=== PATIENT | female | born 1955 | race Caucasian/White ===

== ENCOUNTER 2017-05-30 11:43 | Inpatient (IN) | payer MEDICARE, MEDICAID, SELFPAY | END 2017-06-02 10:17 | disposition home or self-care (01) | DRG 694 | PROVIDERS: Admitting Provider Family Medicine; Emergency Provider Emergency Medicine; Visit Provider Emergency Medicine | DX: N13.30 Unspecified hydronephrosis (principal); I10 Essential (primary) hypertension; J44.9 Chronic obstructive pulmonary disease, unspecified; Z72.0 Tobacco use; Z72.89 Other problems related to lifestyle | CPT/HCPCS: 36415; 71020; 74176; 80048; 80053; 81001; 82550; 82553; 84484; 85025; 87086; 87088; 87186; 87275; 87276; 87507; 93005; 94640; 94760; 96365; 96375; 96376; 99285; 99406; G0378; J2405 ==

== ENCOUNTER 2017-07-25 17:20 | Emergency (ER) | payer MEDICARE, MEDICAID, SELFPAY ==
[2017-07-25 17:31] VITALS: BP 160/112; PULSE 84; RESP 18; TEMP 36.8; O2SAT 98; BMI 27.4
--- NOTE | 2017-07-25 18:00 | HMH.EDSKAF ---
ED Disposition Clinical Impression: Swelling, Abscess, Hematoma, Anal cancer Disposition: Home, Self-Care Condition on Discharge: Fair Instructions: DI for Skin Abscess Prescriptions: cephALEXin [cephALEXin 500mg capsule] 500 mg PO Q6H #28 cap - Critical Care Critical Care Time: No Attestation: On 07/25/17, the high probability of a clinically significant, sudden or life threatening deterioration of the following system(s) required my full and direct attention, intervention and personal management. The time I documented below is in addition to time spent performing reported procedures but includes the following listed in this critical care notation. Medical Decision Making - Medical Records Medical records reviewed: Yes: I reviewed the patient's medical records. Vital Signs: 07/25/17 17:31 Temperature 98.3 F Temperature Source Oral Pulse Rate [Right Brachial] 84 Respiratory Rate 18 Blood Pressure [Right Arm] 160/112 Blood Pressure Mean [Right Arm] 128 Blood Pressure Source [Right Arm] Automatic Cuff Blood Pressure Position [Right Arm] Sitting 02 Sat by Pulse Oximetry 98 - Lab Data Lab Results 07/25/17 17:40: WBC 5.8, RBC 4.79, Hgb 15.1, Hct 46.3, MCV 96.7, MCH 31.5 H, MCHC 32.6, RDW 14.0, Plt Count 261, MPV 8.3, Neut % (Auto) 57.7, Lymph % (Auto) 28.9, [place] % (Auto) 7.4, Eos % (Auto) 5.2, Baso % (Auto) 0.7, Neut # (Auto) 3.3, Lymph # (Auto) 1.7, [place] # (Auto) 0.4, Eos # (Auto) 0.3, Baso # (Auto) 0.0 07/25/17 17:40: Sodium 139, Potassium 4.7, Chloride 106, Carbon Dioxide 25, Anion Gap 12.7, BUN 7, Creatinine 0.78, Estimated Creat Clear 89, Estimated GFR 76, Est GFR ( Amer) 91, Glucose 90 Result diagrams: 07/25/17 17:40 07/25/17 17:40 Orders (Tests/Meds): ORDERS Category Date Time Status Complete Blood Count Auto Diff Stat Lab 07/25/17 17:40 Results Erythrocyte Sedimentation Rate Stat Lab 07/25/17 17:40 Results - Joshua Inquiry Pt receiving controlled substance: No Joshua was queried for this patient: No Medical Decision Making Narrative: Labs were within normal limits I called her surgeon at [facility]. Dr Kenn Abraham who advised to call the nuber on the card for follow up tomorrow. the patient was notified and agreed. Skin/Abscess/FB HPI - General Chief complaint: Skin/Abscess/Foreign Body Stated complaint: Knot on Spine Mode of Arrival: Ambulatory Limitations: No Limitations Description of Symptoms (Recalled from ER Triage Doc. by RN): possible infection at incision site from transmitter placed to stimulate bowels - History of Present Illness HPI narrative: 61 years old female status post stimulator extraction 1 months ago. Yesterday, she developed a swelling underneath the incision and was told to come to the ED to be checked. She has no fever no chills no purulent discharge. MD complaint: lesion, other Onset (ago): day(s) (Started yesterday.) Location: buttocks (Left upper buttock) Severity: mild Quality: dull Consistency: constant Relieving factors: none Exacerbating factors: none Associated symptoms: denies other symptoms Treatments prior to arrival: none - Related Data Home Medications Medication Instructions Recorded Confirmed Albuterol Sulfate [Albuterol HFA 1 - 2 puffs IH Q4-6H PRN 07/25/17 07/25/17 Inhaler] Aspirin [Aspirin 81mg EC Tab] 81 mg PO DAILY 07/25/17 07/25/17 Cyclobenzaprine HCl 10 mg PO DAILY 07/25/17 07/25/17 [Cyclobenzaprine 10mg Tab] Fluticasone/Vilanterol [Breo 1 each IH TID 07/25/17 07/25/17 Ellipta 100-25 Mcg INH] Gabapentin [Gabapentin 800mg Tab] 800 mg PO TID 07/25/17 07/25/17 Levothyroxine Sodium 50 mcg PO DAILY 07/25/17 07/25/17 [Levothyroxine 50mcg (0.05mg) Tab] Lovastatin [Altoprev] 20 mg PO DAILY 07/25/17 07/25/17 Multivit with Iron-Minerals 1 each PO DAILY 07/25/17 07/25/17 [Cerovite Jr] Omeprazole [Omeprazole 40mg 40 mg PO DAILY 07/25/17
--- NOTE | 2017-07-25 18:03 | ED_ITS ---
ED Disposition Clinical Impression: Swelling, Abscess, Hematoma, Anal cancer Disposition: Home, Self-Care Condition on Discharge: Fair Instructions: DI for Skin Abscess Prescriptions: cephALEXin [cephALEXin 500mg capsule] 500 mg PO Q6H #28 cap - Critical Care Critical Care Time: No Attestation: On 07/25/17, the high probability of a clinically significant, sudden or life threatening deterioration of the following system(s) required my full and direct attention, intervention and personal management. The time I documented below is in addition to time spent performing reported procedures but includes the following listed in this critical care notation. Medical Decision Making - Medical Records Medical records reviewed: Yes: I reviewed the patient's medical records. Vital Signs: 07/25/17 17:31 Temperature 98.3 F Temperature Source Oral Pulse Rate [Right Brachial] 84 Respiratory Rate 18 Blood Pressure [Right Arm] 160/112 Blood Pressure Mean [Right Arm] 128 Blood Pressure Source [Right Arm] Automatic Cuff Blood Pressure Position [Right Arm] Sitting 02 Sat by Pulse Oximetry 98 - Lab Data Lab Results 07/25/17 17:40: WBC 5.8, RBC 4.79, Hgb 15.1, Hct 46.3, MCV 96.7, MCH 31.5 H, MCHC 32.6, RDW 14.0, Plt Count 261, MPV 8.3, Neut % (Auto) 57.7, Lymph % (Auto) 28.9, Major % (Auto) 7.4, Eos % (Auto) 5.2, Baso % (Auto) 0.7, Neut # (Auto) 3.3 , Lymph # (Auto) 1.7, Major # (Auto) 0.4, Eos # (Auto) 0.3, Baso # (Auto) 0.0 07/25/17 17:40: Sodium 139, Potassium 4.7, Chloride 106, Carbon Dioxide 25, Anion Gap 12.7, BUN 7, Creatinine 0.78, Estimated Creat Clear 89, Estimated GFR 76, Est GFR ( Amer) 91, Glucose 90 Result diagrams: 07/25/17 17:40 07/25/17 17:40 Orders (Tests/Meds): ORDERS Category Date Time Status Complete Blood Count Auto Diff Stat Lab 07/25/17 17:40 Results Erythrocyte Sedimentation Rate Stat Lab 07/25/17 17:40 Results - Joshua Inquiry Pt receiving controlled substance: No Joshua was queried for this patient: No Medical Decision Making Narrative: Labs were within normal limits I called her surgeon at [facility]. Dr Kenn Abraham who advised to call the nuber on the card for follow up tomorrow. the patient was notified and agreed. Skin/Abscess/FB HPI - General Chief complaint: Skin/Abscess/Foreign Body Stated complaint: Knot on Spine Mode of Arrival: Ambulatory Limitations: No Limitations Description of Symptoms (Recalled from ER Triage Doc. by RN): possible infection at incision site from transmitter placed to stimulate bowels - History of Present Illness HPI narrative: 61 years old female status post stimulator extraction 1 months ago. Yesterday, she developed a swelling underneath the incision and was told to come to the ED to be checked. She has no fever no chills no purulent discharge. MD complaint: lesion, other Onset (ago): day(s) (Started yesterday.) Location: buttocks (Left upper buttock) Severity: mild Quality: dull Consistency: constant Relieving factors: none Exacerbating factors: none Associated symptoms: denies other symptoms Treatments prior to arrival: none - Related Data Home Medications Medication Instructions Recorded Confirmed Albuterol Sulfate [Albuterol HFA 1 - 2 puffs IH Q4-6H PRN 07/25/17 07/25/17 Inhaler] Aspirin [A
[2017-07-25 18:13] LABS: Basophils % 0.7 % (0.1-2.0); Eosinophils # 0.3 K/mm3 (0.0-0.4); Eosinophils % 5.2 % (0.1-12.0); Hematocrit 46.3 % (37.0-47.0); Hemoglobin 15.1 g/dL (12.2-16.2); Lymphocytes # 1.7 K/mm3 (0.7-4.5); Lymphocytes % 28.9 K/mm3 (10-50); Mean Corpuscular HGB Conc 32.6 g/dL (31.8-35.4); Mean Corpuscular Hemoglobin 31.5 pg (27.0-31.2); Mean Corpuscular Volume 96.7 fl (81-99); Mean Platelet Volume 8.3 fl (7.4-10.4); Monocytes # 0.4 K/mm3 (0.1-1.0); Monocytes % 7.4 % (1.7-9.3); Neutrophils # 3.3 K/mm3 (1.8-7.8); Neutrophils % 57.7 % (37.0-80.0); Platelet Count 261 K/mm3 (142-424); Red Blood Count 4.79 M/mm3 (4.20-5.40); White Blood Count 5.8 K/mm3 (4.8-10.8)
[2017-07-25 18:16] LABS: Anion Gap 12.7 mEq/L (5-15); Blood Urea Nitrogen 7 mg/dL (7-18); Carbon Dioxide 25 mmol/L (21.0-32.0); Chloride 106 mmol/L (98-107); Creatinine Clearance Estimated 89 mL/min (0-300); Creatinine,Serum 0.78 mg/dL (0.55-1.02); Estimated Glomerular Filt Rate 76 ml/min (>60); GFR (African American) 91 ML/MIN (>60); Glucose 90 mg/dL (74-106); Potassium 4.7 mmoL/L (3.5-5.1); Sodium 139 mmol/L (136-145)
[2017-07-25 19:41] LABS: Erythrocyte Sedimentation Rate 31 mm/hr (0-30)
== END 2017-07-25 19:13 | disposition home or self-care (01) ==
PROVIDERS: Emergency Provider Emergency Medicine; Family Provider Emergency Medicine
DX: R60.9 Edema, unspecified (principal); L02.91 Cutaneous abscess, unspecified; C21.0 Malignant neoplasm of anus, unspecified; Z79.82 Long term (current) use of aspirin; Z88.2 Allergy status to sulfonamides; Z88.6 Allergy status to analgesic agent
CPT/HCPCS: G0463; 80048; 85025; 85651; 99203; 99281

== ENCOUNTER → 2017-11-20 10:27 | Outpatient (REF) | payer MEDICARE, MEDICAID, SELFPAY ==
[2017-11-20 14:24] LABS: Chol/HDL Ratio 5.3 (1-3.5); Cholesterol 242 mg/dL (140-200); HDL Cholesterol 46 mg/dL (29-89); LDL Cholesterol 162 mg/dL (0-130); Triglycerides 168 mg/dL (30-200); VLDL Cholesterol 34 mg/dL (0-40)
[2017-11-21 09:01] LABS: Vitamin D 25 Hydroxy 26.2 ng/mL (30.0-100.0)
== END ==
LOC: LAB 10:27
PROVIDERS: Visit Provider Emergency Medicine
DX: I10 Essential (primary) hypertension (principal)
CPT/HCPCS: 80061; 82652; 84439; 84443

== ENCOUNTER → 2018-06-09 18:58 | Outpatient (CLI) | payer MEDICARE, MEDICAID, SELFPAY | PROVIDERS: Visit Provider Emergency Medicine | DX: R39.9 Unspecified symptoms and signs involving the genitourinary system (principal) | CPT/HCPCS: 87086 ==

== ENCOUNTER → 2018-08-28 17:16 | Outpatient (CLI) | payer MEDICARE, MEDICAID, SELFPAY | PROVIDERS: Visit Provider Nurse Practitioner Family | DX: R30.0 Dysuria (principal) | CPT/HCPCS: 87086; 87088; 87186 ==

== ENCOUNTER → 2018-10-31 10:10 | Outpatient (CLI) | payer MEDICARE, MEDICAID, SELFPAY ==
--- NOTE | 2018-10-31 10:19 | XR_ITS ---
XR shoulder RT min 2V HISTORY: Pain following injury ITS.REASON: grashy, axillary and supraspinatus ORDERING PHYSICIAN: Reji Cervantes MD PATIENT AGE: 63 years Comparison: 09/27/2018 FINDINGS: No fracture or dislocation. The glenohumeral joint has an unremarkable appearance. There are minimal osteoarthritic changes at the acromioclavicular joint with minimal spurring of the acromion. This is evident on the axillary view. IMPRESSION: Minimal osteoarthritic change of the acromioclavicular joint otherwise negative
== END ==
PROVIDERS: PCP Emergency Medicine; Visit Provider Orthopaedic Surgery
DX: M25.511 Pain in right shoulder (principal)
CPT/HCPCS: 73030

== ENCOUNTER → 2018-11-03 07:23 | Outpatient (CLI) | payer MEDICARE, MEDICAID, SELFPAY ==
--- NOTE | 2018-11-03 07:23 | CA_ITS ---
PROCEDURE: 2-D M-mode and color Doppler study INDICATIONS FOR THE TEST: Chest pain COPD Heart Murmur Tobacco Smoking Palpitations Fatigue Syncope Edema HypertensionXDiabetes Mellitus Rheumatic Fever SOBXDOE Obesity Hyperlipidemia Family History HD Additional History PATIENT INFORMATION HEIGHT: 63 WEIGHT:159 GENDER: Female B/P:164/104 2-D/M-MODE INTERPRETATION: 2-D MEASUREMENTS OBSERVED VALUES IN CMS Right Ventricular Dimension (RVDd) 2.5 Interventricular Septum (Thickness)(IVsd) 1.1 Left Ventricular Internal Dimensions(LVIDd) 4.7 Left Ventricular Posterior Wall (Thickness)(LVPWd) .9 Aortic Root 3.5 Aortic Cusp Separation 2.1 Left Atrial Dimensions (LAD) 3.4 2D 1. Left atrium is mildly enlarged, left ventricle is normal size, mild concentric left ventricular hypertrophy, visually estimated ejection fraction 55% with no regional wall motion abnormality. 2. The right atrium and right ventricle are normal size and contractility. 3. The aortic valve is minimally thickened and fibrosed. 4. The mitral and tricuspid valve are grossly normal. 5. The pulmonic valve is poorly visualized. 6. No significant pericardial effusion noted. DOPPLER INTERROGATION: Doppler interrogation of the aortic, mitral and tricuspid valvular presence of mild aortic, mild mitral and tricuspid regurgitation, tricuspid regurgitation jet velocity is inadequate for calculation of the right ventricular systolic pressure, grade 1 diastolic dysfunction seen without tissue Doppler evidence of raised left atrial pressure. CONCLUSION: 1. Mildly enlarged left atrium, normal left ventricular size, mild concentric left ventricular hypertrophy, visually estimated ejection fraction 55% with no regional wall motion abnormality, grade 1 diastolic dysfunction seen without tissue Doppler evidence of raised left atrial pressure. 2. Mild aortic, mild mitral and tricuspid regurgitation 3. No significant pericardial effusion noted.
--- NOTE | 2018-11-03 07:23 | NM_ITS ---
CARDIOLITE SPECT MYOCARDIAL PERFUSION LEXISCAN, REST AND STRESS: [facility] REVIEW QGS EF AND WALL MOTION EVALUATION: QPS - PERFUSION EVALUATION HISTORY: SOB, Syncope, Fatigue, HTN, Tobacco use, Family history DOSE: 10.21 mCi technetium 99m mibi intravenously at rest followed by 30.5 mCi technetium 99m mibi following the intravenous ministration of 0.4 mg of Lexiscan. Resting blood pressure is 129/93. Stress blood pressure 104/69. FINDINGS: Ejection fraction is calculated to be 71%. Uniform myocardial activity at both stress and rest IMPRESSION: No scintigraphic evidence of Lexiscan-induced myocardial ischemia with normal ejection fraction normal wall
--- NOTE | 2018-11-03 07:46 | HMH.ITSHM ---
Current Home Medications as stated by this patient Davina Vidal or patient relations representative. []CYCLOBENZAPR BUPROPION TRAZONE LEVOTHYROXIN OMEPRAZOLE LISINOPRIL LOVASTATIN VENTALIN ASA ALENDRONATE VIT D3 VIT D FLUTICASONE
== END ==
PROVIDERS: PCP Emergency Medicine; Visit Provider Internal Medicine Cardiovascular Disease
DX: E78.5 Hyperlipidemia, unspecified (principal); G47.33 Obstructive sleep apnea (adult) (pediatric); I10 Essential (primary) hypertension; R06.02 Shortness of breath; Z72.0 Tobacco use; Z99.89 Dependence on other enabling machines and devices; J44.9 Chronic obstructive pulmonary disease, unspecified
CPT/HCPCS: 78452; 93017; 93306; A9502; J2785

== ENCOUNTER → 2018-11-14 07:28 | Outpatient (CLI) | payer MEDICARE, MEDICAID, SELFPAY ==
--- NOTE | 2018-11-14 07:29 | CT_ITS ---
CT chest wo con HISTORY: Short of breath. Dyspnea. Cough. 63-year-old. Smoker. HISTORY of analcancer at 1994 . ORDERING PHYSICIAN: Montrell John MD PATIENT AGE: 63 years COMPARISON: CT chest 04/12/2017 and August 25, 2014. Technique: Axial images obtained t through chest. No IV contrast utilized. Sagittal and coronal reformatted images are also generated and reviewed. All CT scans at the facility use one or more dose reduction, viz: automated exposure control, ma/kV adjustment per patient size (including targeted exams where dose is matched to indication, i.e. head), or iterative reconstruction technique. FINDINGS: No acute findings. No focal pneumonia. No pulmonary nodule mass of concern HEART: .. Normal heart size. Generous coronary artery calcification involving LAD, circumflex and right coronary. No significant pericardial effusion. MEDIASTINAL AND HILAR STRUCTURES: No mediastinal or hilar mass evident. No dominant adenopathy. AORTA: No thoracic aortic aneurysm or dissection evident. Ascending aorta 3.8 cm diameter LUNGS: No significant mass or consolidation. No No significant new findings. In fact an area of focal density seen in 2016 at the right upper lobe residing just above the minor fissure, has shown marked regression with only residual scarring now seen here. This appeared to be of postinflammatory feature. Both the nodule and minimal infiltrate/atelectasis previously seen. Here has shown marked improvement and regression. Minimal right apical pleural & parenchymal scarring, density has remained stable compared to studies from August 2014 and not of concern Minimal stable scarring anterior RML; and scant scarring scarring anterior margin lingula. Airway:. No endobronchial lesions evident but there may be may be some mild airway thickening airways perihilar regions. Likely reflects mild chronic bronchitis changes. Mild emphysematous changes otherwise noted ADDITIONAL FINDINGS: Moderate size Bochdalek hernia posterior aspect right diaphragm, with bulging of fat into the lower right chest related to such. PLEURAL SPACES: No significant effusion. No evidence of pneumothorax. BONY STRUCTURES: No acute bony abnormalities apparent stable wedge compression fracture T12.. Subtle old healed left fifth and sixth rib fractures again noted. LYMPH NODES: No enlarged lymph nodes evident UPPER ABDOMEN: Limited images here at upper abdomen No significant findings otherwise. Adrenals unremarkable IMPRESSION: ......... 1. No acute cardiopulmonary findings. ... The nodular density & minor airspace disease seen at the right midlung/ RUL on the 2017 study, has resolved. Only minimal residual scarring here ... Other areas of stable minimal pleural/parenchymal scarring ... No infiltrate. No pulmonary nodule or mass of concern. 2. Mild emphysematous changes Perhaps some minor thickening of central airways in the perihilar region could reflect minimal chronic bronchitis features. 3. Coronary artery disease again noted.-Noting Calcification LAD, circumflex or right coronary 4. Stable Bochdalek hernia on right . Stable old wedge compression fracture T12
[2018-11-14 10:55] LABS: Blood Urea Nitrogen 10 mg/dL (7-18); Calcium 8.7 mg/dL (8.5-10.1); Carbon Dioxide 29 mmol/L (21.0-32.0); Chloride 99 mmol/L (98-107); Estimated Glomerular Filt Rate 64 ml/min (>60); GFR (African American) 77 ML/MIN (>60); Glucose 101 mg/dL (74-106); Sodium 136 mmol/L (136-145)
--- NOTE | 2018-11-14 17:11 | MR_ITS ---
MR shoulder RT wo con Ordering Physician: Montrell John MD Patient Age: 63 years: Female HISTORY: ITS.REASON: RIGHT SHOULDER PAIN right shoulder pain. Injury TECHNIQUE: Multiplanar multisequence imaging on 1.5 [facility] MRI COMPARISON :No previous studies of right shoulder. Multiple studies of left shoulder available.. FINDINGS A small area of focal increased signal seen at the junction of the infraspinatus-supraspinatus. This reflects along with likely small tear there may be a small cuff tear or partial tear at the superior/anterior margin of the infraspinatus tendon (as suggested on sagittal image 7, 8 and coronal images 7, 8). The supraspinatus for the most part appears intact with upper normal signal mild tendinopathy at its anterior and posterior margins suggests on sagittal images minor. The biceps tendon appears intact but does demonstrate some upper normal signal the superior the bicipital groove which could reflect a mild biceps tendinopathy increase fluid along biceps tendon also noted. Can be secondary to the small joint effusion or reflect mild biceps tendinopathy. The glenohumeral joint is intact. Upper normal signal beneath the superior labrum likely normal. Slight roughening and irregularity likely at the anterior labrum but no prominent displaced tear of the anterior labrum. Posterior labrum intact. Osseous glenoid intact. AC joint. Mild hypertrophic changes. The acromion is fairly neutral but with slight inferior positioning of such that there is slight narrowing of subacromial space, narrowing to 5.5 mm Subscapularis tendon intact with some scant fluid at the anterior interval just above. IMPRESSION:...... 1. Slight increased signal junction of infraspinatus tendon/supraspinatus tendon. Suspect reflects tendinopathy a suspect a small partial thickness cuff tear at Superior/anterior margin of the infraspinatus tendon. 2. Slight narrowing subacromial space. 5.5 mm at its most narrow point . Mild supraspinatus tendinopathy 3. Slight increased signal centrally at biceps tendon, most evident above the bicipital groove-may reflect mild biceps tendinopathy. Correlation required.. Slight Increased fluid along the biceps tendon see reflect small joint effusion but but could reflect the same 4. AC joint arthropathy. Moderate. 5. Subtle minor signal changes at the anterior & superior labrum and may reflect some minor degenerative changes of the glenoid labrum.
== END ==
PROVIDERS: PCP Emergency Medicine; Visit Provider Internal Medicine Cardiovascular Disease
DX: G47.33 Obstructive sleep apnea (adult) (pediatric); I10 Essential (primary) hypertension; J44.9 Chronic obstructive pulmonary disease, unspecified; R06.02 Shortness of breath; Z72.0 Tobacco use; Z99.89 Dependence on other enabling machines and devices; R60.9 Edema, unspecified
CPT/HCPCS: 36415; 71250; 73221; 80048; 83880

== ENCOUNTER → 2018-11-18 11:10 | Outpatient (CLI) | payer MEDICARE, MEDICAID, SELFPAY ==
--- NOTE | 2018-11-18 11:13 | MR_ITS ---
MR shoulder LT wo con HISTORY:Left shoulder pain with limited range of motion ITS.REASON: LEFT SHOULDER PAIN ORDERING PHYSICIAN: Reji Cervantes MD PATIENT AGE: 63 years Comparison: 09/27/2018 TECHNIQUE: Standard multiplanar multiecho sequences are performed without contrast. FINDINGS: There is extensive motion artifact which obscures fine detail. There is thickening with increased T2 signal of the supraspinatus tendon consistent with tendinopathy/tendinosis. There is at least a partial tear distally and anteriorly and possible full-thickness tear somewhat difficult to evaluate due to the motion. No tendinous or muscle retraction. A complete tear is not felt to be present. The infraspinatus tendon appears intact as does the subscapularis and teres minor. No obvious labral tear. Bicipital tendon is in place. Subarticular cyst are present in the humeral head laterally and posteriorly. There is ill-defined 2 cm area of slight increase in T2 and decreased T1 signal within the proximal shaft of the humerus. This is a question clinical significance. IMPRESSION: 1. Tendinopathy/tendinosis of the supraspinatus tendon with at least a partial tear and possible full-thickness tear distally and anteriorly. A complete tear with musculotendinous retraction does not appear 2. Teno synovitis of the bicipital tendon 3. Ill-defined 2 cm area of decreased T1 and increased T2 signal in the intramedullary portion of the proximal humerus possibly related to yellow marrow replacement. An intramedullary lesion here is not excluded and follow-up is suggested.
== END ==
PROVIDERS: PCP Emergency Medicine; Visit Provider Orthopaedic Surgery
DX: M25.511 Pain in right shoulder (principal)
CPT/HCPCS: 73221

== ENCOUNTER → 2018-12-03 16:26 | Outpatient (CLI) | payer MEDICARE, MEDICAID, SELFPAY ==
[2018-12-03 18:09] LABS: Anion Gap 15.2 mEq/L (5-15); Blood Urea Nitrogen 7 mg/dL (7-18); Calcium 8.6 mg/dL (8.5-10.1); Carbon Dioxide 23 mmol/L (21.0-32.0); Chloride 105 mmol/L (98-107); Creatinine,Serum 0.89 mg/dL (0.55-1.02); Estimated Glomerular Filt Rate 64 ml/min (>60); GFR (African American) 78 ML/MIN (>60); Glucose 73 mg/dL (74-106); Potassium 4.2 mmoL/L (3.5-5.1); Sodium 139 mmol/L (136-145)
== END ==
PROVIDERS: Visit Provider Urology
DX: I51.89 Other ill-defined heart diseases (principal)
CPT/HCPCS: 36415; 80048

== ENCOUNTER → 2019-01-08 09:52 | Outpatient (CLI) | payer MEDICARE, MEDICAID, SELFPAY ==
--- NOTE | 2019-01-08 09:54 | MM_ITS ---
MM Dig screening mamm BI w/CAD CAD Screening COMPARISON: Digital mammograms with CAD 12/23/2015 and 12/10/2014 INDICATION: There is no personal or family history of breast cancer TECHNIQUE: Standard CC and MLO images were obtained. R2 CAD reviewed. FINDINGS: The breasts are composed primarily of fat with minimal scattered fibroglandular densities in each breast. There is no suspicious lesion in either breast and there are no suspicious microcalcifications. IMPRESSION: A type breast parenchyma with no suspicious lesion seen BI-RADS Category: 1 Negative RECOMMENDED FOLLOW-UP: 1YR - 1 YEAR FOLLOW-UP (A letter has been sent to the patient regarding results of the study.)
== END ==
PROVIDERS: PCP Emergency Medicine; Visit Provider Nurse Practitioner Family
DX: Z12.31 Encounter for screening mammogram for malignant neoplasm of breast (principal)
CPT/HCPCS: 77067

== ENCOUNTER 2019-03-24 14:00 | Outpatient (RCR) | payer MEDICARE, MEDICAID, SELFPAY ==
--- NOTE | 2019-03-06 10:16 | HMH.PTOPEV ---
PT Outpatient Evaluation Rehab PT Outpatient Evaluation Start: 03/06/19 09:15 Freq: Status: Active Protocol: Document 03/06/19 09:15 JIE (Rec: 03/06/19 10:16 JIE [id number]) Electronically Signed By Ayaz Reese, PT 03/06/19 09:15 Outpatient Therapy Subjective History Subjective History Pt reports falling at home in September, with impact to L SH . Pt reports L SH and L UE to forearm soon became painful, pain then referred into neck and into R SH and R UE . Pt now reports chronic B SH pain with RC referred s/s into B UE 's, and reports improved s/s with recent 'pain injections'. MRI of B SH has revealed RC tendinopathy, partial thickness tears Chief Complaint Pain,Stiff,Weakness Symptom Type Ache,Sharp,Dull Symptoms Relieved By Rest/Positioning,Prescription Meds Symptoms Aggravated By Physical Activity,Lifting Prior Functional Limitations Reaching,Lifting,Housework Current Functional Limitations Reaching Symptom Description Constant but Variable Level of pain today (0-10) 6 Pain scale - at its best (0-10) 5 Pain scale - at its worst (0-10) 8 Shoulder/Elbow Eval Shoulder Objective Measurements Palpation Tenderness tenderness shoulder exam standard bilateral tenderness over the bicipital tendon bilateral shoulder exam standard tenderness over the SA bursa shoulder bilateral exam standard Shoulder Palpation Findings Tenderness,Trigger Point Shoulder Palpation Overall Comment 2-3/4 Posture Shoulder Posture Sitting Position (L) Rounded,(R) Rounded Shoulder Posture Standing Position (L) Rounded,(R) Rounded Scapula Posture Sitting Position (L) Protracted,(R) Protracted Scapular Posture Standing Position (L) Protracted,(R) Protracted Flexibilty Deficits Pectoralis Major Muscle Length (R) Moderate Tightness,(L) Moderate Tightness Shoulder ROM Bilateral Shoulder ROM Limitations Pain Shoulder Abduction Active Range of 0-150 Motion (degrees) Shoulder Flexion Active Range of Motion 0-160 (degrees) Query Text: Shoulder MMT Shoulder Abduction Strength Grade 4- Good- Shoulder Flexion Strength Grade 4- Good- Shoulder External Rotation Strength 4- Good- Grade Posterior Deltoid Strength Grade 4 Good Shoulder Special Tests Shoulder Empty Can (Supraspinatus) Test Positive Left,Positive Right Should
== END 2019-03-24 14:05 | disposition home or self-care (01) ==
LOC: PT 14:00
PROVIDERS: Visit Provider Orthopaedic Surgery
DX: M25.511 Pain in right shoulder (principal); M25.512 Pain in left shoulder
CPT/HCPCS: 97010; 97014; 97033; 97035; 97110; 97163; G0283

== ENCOUNTER → 2019-04-08 14:07 | Outpatient (CLI) | payer MEDICARE, MEDICAID, SELFPAY | PROVIDERS: Visit Provider Emergency Medicine | DX: R35.0 Frequency of micturition (principal); N39.0 Urinary tract infection, site not specified; B96.20 Unspecified Escherichia coli [E. coli] as the cause of diseases classified elsewhere | CPT/HCPCS: 87086; 87088; 87186 ==

== ENCOUNTER 2019-05-12 15:41 | Outpatient (RCR) | payer MEDICARE, MEDICAID, SELFPAY | END 2019-05-12 16:00 | disposition home or self-care (01) | LOC: OT 15:41 | PROVIDERS: Visit Provider Orthopaedic Surgery | DX: G56.03 Carpal tunnel syndrome, bilateral upper limbs (principal) | CPT/HCPCS: 97763 ==

== ENCOUNTER → 2019-06-01 09:30 | Outpatient (POV) | payer MEDICARE, MEDICAID, SELFPAY | PROVIDERS: Visit Provider Specialist | DX: M79.642 Pain in left hand (principal); M79.641 Pain in right hand; R20.2 Paresthesia of skin | CPT/HCPCS: 95886; 95910 ==

== ENCOUNTER → 2019-07-16 13:52 | Outpatient (CLI) | payer MEDICARE, MEDICAID, SELFPAY ==
--- NOTE | 2019-07-16 | ECG_ITS ---
APPROVED REPORT Exam: Resting ECG HR:56 bpm ECG Measurements Heart Rate 56 AXES SC 170 P 76 QRSd 78 QRS 82 QT 420 T 78 QTc 405 <Conclusion> Sinus bradycardia Low voltage QRS Poor r wave progression Abnormal ECG Electronically signed by : Giovanni Butler, 07/16/2019 15:40:16
--- NOTE | 2019-07-16 13:58 | XR_ITS ---
PROCEDURE: XR CHEST 2V CLINICAL HISTORY: HTN,PRIOR SMOKER 10 millimeter nodule like opacity in retrosternal space requiring follow-up. Consider post-contrast CT for further assessment. COMPARISON: CXR1 CHEST-PORTABLE from 04/21/2015 CXR CHEST(2 VIEWS-NOT PORTABLE) from 05/30/2017 CXR1 CHEST-PORTABLE from 06/03/[address] chest wo con from 11/14/2018 FINDINGS: The cardiomediastinal silhouette and pulmonary vascularity are within normal limits. The lungs are clear without infiltrates or pleural effusions. There is probable eventration of the right hemidiaphragm. There is an indeterminate 10 millimeter nodule like opacity in the retrosternal space on the lateral view only. Follow-up is recommended. A developing pulmonary nodule including neoplasm is not excluded. No acute bony abnormalities. Compression deformity of T12 with loss of 1/2 to 2/3 vertebral body height is noted. IMPRESSION: No acute cardiopulmonary finding. Indeterminate 10 millimeter nodule like opacity in retrosternal space. Follow-up is recommended. Consider postcontrast CT for further assessment. Dictated by: Remington Reese 07/16/2019 15:04 Electronically signed by Remington Reese in [facility] 07/16/2019 15:04
[2019-07-16 15:12] LABS: Basophils # 0.1 K/mm3 (0-0.2); Basophils % 1.2 % (0.1-2.0); Eosinophils # 0.2 K/mm3 (0.0-0.4); Eosinophils % 3.6 % (0.1-12.0); Hematocrit 38.1 % (37.0-47.0); Lymphocytes # 1.5 K/mm3 (0.7-4.5); Lymphocytes % 34.4 % (10-50); Mean Corpuscular HGB Conc 31.5 g/dL (31.8-35.4); Mean Corpuscular Hemoglobin 30.5 pg (27.0-31.2); Mean Corpuscular Volume 96.8 fl (81-99); Mean Platelet Volume 8.2 fl (7.4-10.4); Monocytes # 0.5 K/mm3 (0.1-1.0); Monocytes % 10.4 % (1.7-9.3); Neutrophils # 2.2 K/mm3 (1.8-7.8); Neutrophils % 50.3 % (37.0-80.0); Platelet Count 258 K/mm3 (142-424); Red Blood Count 3.93 M/mm3 (4.20-5.40); Red Cell Distribution Width 14.6 % (11.5-17.5); White Blood Count 4.3 K/mm3 (4.8-10.8)
[2019-07-16 15:47] LABS: Alanine Aminotransferase 19 U/L (12-78); Albumin Level 3.5 gm/dL (3.4-5.0); Albumin/Globulin Ratio 1.2 (1.1-1.8); Alkaline Phosphatase 68 U/L (46-116); Anion Gap 11.5 mEq/L (5-15); Aspartate Amino Transferase 16 U/L (15-37); Bilirubin,Total 0.2 mg/dL (0.2-1.0); Blood Urea Nitrogen 23 mg/dL (7-18); Calcium 8.6 mg/dL (8.5-10.1); Carbon Dioxide 30 mmol/L (21.0-32.0); Chloride 105 mmol/L (98-107); Estimated Glomerular Filt Rate 46 ml/min (>60); GFR (African American) 55 ML/MIN (>60); Glucose 97 mg/dL (74-106); Potassium 4.5 mmoL/L (3.5-5.1); Sodium 142 mmol/L (136-145); Total Protein,Serum 6.5 gm/dL (6.4-8.2)
== END ==
PROVIDERS: PCP Emergency Medicine; Visit Provider Orthopaedic Surgery
DX: Z01.818 Encounter for other preprocedural examination (principal); G56.03 Carpal tunnel syndrome, bilateral upper limbs
CPT/HCPCS: 36415; 71046; 80053; 85025; 93005

== ENCOUNTER → 2019-08-04 12:18 | Outpatient (CLI) | payer MEDICARE, MEDICAID, SELFPAY ==
--- NOTE | 2019-08-04 12:18 | CT_ITS ---
PROCEDURE: CT CHEST W CON CLINCAL INDICATION: nodule seen on xray COMPARISON: CHESTWO CT chest wo con from 11/14/[address] abdomen pelvis wo con from 01/09/2019 XR CHEST 2V from 07/16/2019 TECHNIQUE: IV Contrast: 75ml Optiray 350 Axial images obtained with sagittal and coronal reformats. All CT scans at the facility use one or more dose reduction, viz: automated exposure control, ma/kV adjustment per patient size (including targeted exams where dose is matched to indication, i.e. head), or iterative reconstruction technique. FINDINGS: HEART AND MEDIASTINAL STRUCTURES: The small lymph node is present in the anterior mediastinum in there is mild thickening of the anterior pericardial recess. Coronary artery calcifications are present. There is mild thickening of the pericardium anteriorly consistent with small pericardial effusion. LUNGS AND PLEURAL SPACES: Right apical thickening/scarring is noted similar to the previous exam. There is also scarring or atelectatic change in the right upper lobe medially which has developed in the interval and may account for the radiographic abnormality. There is a stable 7 mm nodular opacity in the right minor fissure BONY STRUCTURES: Chronic wedge compression changes are present involving T12. UPPER ABDOMEN: Scattered small periportal lymph nodes are present. There has been a prior cholecystectomy. The common hepatic duct is enlarged at 2 cm. Small nodes are present in the splenic hilum. ADDITIONAL FINDINGS: No other significant abnormalities. IMPRESSION: 1. There is an irregular opacity in the right upper lobe medially which may be due to an area of atelectasis or fibrosis and may account for the radiographic abnormality. Suggest 3 month follow-up to confirm resolution or stability as this has developed since the previous exam. 2. Other nonacute findings as described above. Dictated by: yTron Huynh MD 08/05/2019 10:53 Electronically signed by Tyron Huynh MD in [place] 08/05/2019 10:53
[2019-08-04 12:46] VITALS: BMI 28.0
[2019-08-04 13:23] LABS: Blood Urea Nitrogen 16 mg/dL (7-18); Creatinine Clearance Estimated 58 mL/min (50-200); Creatinine,Serum 1.16 mg/dL (0.55-1.02); Estimated Glomerular Filt Rate 47 ml/min (>60); GFR (African American) 57 ML/MIN (>60)
== END ==
PROVIDERS: PCP Emergency Medicine; Visit Provider Emergency Medicine
DX: R91.1 Solitary pulmonary nodule (principal)
CPT/HCPCS: 71260; 82565; 84520; Q9967

== ENCOUNTER → 2019-08-26 15:19 | Outpatient (CLI) | payer MEDICARE, MEDICAID, SELFPAY ==
--- NOTE | 2019-08-26 15:38 | XR_ITS ---
PROCEDURE: XR WRIST RT MIN 3V CLINICAL INDICATION: CARPEL TUNNEL SYNDROME Pain COMPARISON: No exams were available for comparison FINDINGS: Minimal osteoarthritic changes are present involving the scapho trapezium joint. A well-circumscribed calcific density is present dorsal to the mid carpal row and could be due to an old avulsion injury of the triquetrum. Otherwise negative IMPRESSION: 1. Minimal osteoarthritic change of the scapho trapezium joint 2. Old avulsion fracture of the triquetrum Dictated by: Tyron Huynh MD 08/26/2019 17:20 Electronically signed by Tyron Huynh MD in [place] 08/26/2019 17:20
[2019-08-26 16:17] LABS: Basophils % 0.9 % (0.1-2.0); Eosinophils # 0.1 K/mm3 (0.0-0.4); Eosinophils % 3.9 % (0.1-12.0); Hemoglobin 11.6 g/dL (12.2-16.2); Lymphocytes # 1.3 K/mm3 (0.7-4.5); Lymphocytes % 36.8 % (10-50); Mean Corpuscular HGB Conc 31.4 g/dL (31.8-35.4); Mean Corpuscular Hemoglobin 29.3 pg (27.0-31.2); Mean Corpuscular Volume 93.4 fl (81-99); Mean Platelet Volume 8.2 fl (7.4-10.4); Monocytes # 0.3 K/mm3 (0.1-1.0); Neutrophils # 1.7 K/mm3 (1.8-7.8); Neutrophils % 49.3 % (37.0-80.0); Platelet Count 266 K/mm3 (142-424); Red Blood Count 3.96 M/mm3 (4.20-5.40); Red Cell Distribution Width 14.9 % (11.5-17.5); White Blood Count 3.5 K/mm3 (4.8-10.8)
[2019-08-26 17:16] LABS: Chloride 102 mmol/L (98-107); Sodium 139 mmol/L (136-145)
[2019-08-26 17:17] LABS: Potassium 4.4 mmoL/L (3.5-5.1)
[2019-08-26 17:20] LABS: Anion Gap 15.4 mEq/L (5-15); Blood Urea Nitrogen 15 mg/dl (7-17); Calcium 9.5 mg/dl (8.4-10.2); Carbon Dioxide 26 mmol/L (22.0-30.0); Estimated Glomerular Filt Rate 56 ml/min (>60); GFR (African American) 68 ML/MIN (>60); Glucose 85 mg/dl (74-100)
== END ==
PROVIDERS: Visit Provider Orthopaedic Surgery
DX: Z01.818 Encounter for other preprocedural examination (principal); G56.01 Carpal tunnel syndrome, right upper limb
CPT/HCPCS: 36415; 73110; 80048; 85025

== ENCOUNTER → 2019-10-27 09:05 | Outpatient (CLI) | payer MEDICARE, MEDICAID, SELFPAY ==
[2019-10-27 09:29] LABS: Basophils # 0.1 K/mm3 (0-0.2); Basophils % 1.4 % (0.1-2.0); Eosinophils # 0.2 K/mm3 (0.0-0.4); Eosinophils % 4.1 % (0.1-12.0); Hematocrit 34.5 % (37.0-47.0); Lymphocytes # 1.4 K/mm3 (0.7-4.5); Lymphocytes % 39.4 % (10-50); Mean Corpuscular HGB Conc 31.7 g/dL (31.8-35.4); Mean Corpuscular Hemoglobin 29.7 pg (27.0-31.2); Mean Corpuscular Volume 93.6 fl (81-99); Monocytes # 0.3 K/mm3 (0.1-1.0); Monocytes % 8.4 % (1.7-9.3); Neutrophils # 1.7 K/mm3 (1.8-7.8); Neutrophils % 46.7 % (37.0-80.0); Platelet Count 243 K/mm3 (142-424); Red Blood Count 3.69 M/mm3 (4.20-5.40); Red Cell Distribution Width 14.3 % (11.5-17.5); White Blood Count 3.7 K/mm3 (4.8-10.8)
--- NOTE | 2019-10-27 10:23 | XR_ITS ---
PROCEDURE: XR WRIST RT MIN 3V CLINICAL INDICATION: HTN,H/O TOBACCO USE Pain, carpal tunnel syndrome COMPARISON: XR WRIST RT MIN 3V from 08/26/2019 FINDINGS: There are mild osteoarthritic changes at the scapho trapezium joint. No other significant anomalies. No fracture or dislocation. No lytic or blastic change. 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
--- NOTE | 2019-10-27 10:23 | XR_ITS ---
PROCEDURE: XR WRIST LT MIN 3V CLINICAL INDICATION: HTN,H/O TOBACO USE Carpal tunnel syndrome, pain COMPARISON: XR WRIST RT MIN 3V from 08/26/2019 FINDINGS: No fracture or dislocation. No lytic or blastic change. There is normal mineralization. The joint spaces are well-preserved. No significant degenerative/arthritic changes. No erosive changes evident. Other findings:None. IMPRESSION: No acute findings. Dictated by: Tyron Huynh MD 10/27/2019 13:42 Electronically signed by Tyron Huynh MD in [place] 10/27/2019 13:42
[2019-10-27 10:35] LABS: Anion Gap 10.3 mEq/L (5-15); Blood Urea Nitrogen 18 mg/dl (7-17); Calcium 8.7 mg/dl (8.4-10.2); Carbon Dioxide 26 mmol/L (22.0-30.0); Chloride 106 mmol/L (98-107); Estimated Glomerular Filt Rate 56 ml/min (>60); GFR (African American) 68 ML/MIN (>60); Glucose 95 mg/dl (74-100); Potassium 4.3 mmoL/L (3.5-5.1); Sodium 138 mmol/L (136-145)
[2019-10-28 13:55] LABS: Covid-19 Nasal PCR Sendout Lex NOT DETECTED
== END ==
PROVIDERS: Visit Provider Orthopaedic Surgery
DX: Z01.818 Encounter for other preprocedural examination (principal); G56.01 Carpal tunnel syndrome, right upper limb
CPT/HCPCS: 36415; 73110; 80048; 85025; U0003

== ENCOUNTER 2019-10-29 06:01 | Day surgery (SDC) | payer MEDICARE, MEDICAID, SELFPAY ==
--- NOTE | 2019-10-26 12:40 | SUR.PREOP ---
10/26/19 @ 2030--PHONE CALL MADE TO PATIENT. PATIENT UNDERSTANDS THAT LAB WORK AND COVID TESTING NEEDS TO BE COMPLETED @ 0900 ON 10/27/19. PATIENT UNDERSTANDS IF LAB WORK AND COVID-19 TESTS ARE NOT COMPLETED BY 12PM ON THAT DATE, THE SURGERY SCHEDULED WILL BE CANCELLED AND RESCHEDULED FOR ANOTHER TIME.
[2019-10-26 12:41] VITALS: BMI 28.3
--- NOTE | 2019-10-28 20:58 | PC.NURSE ---
COVID-19 test results negative. patient aware._
[2019-10-29] VITALS (8 sets, daily range): BP systolic 94–138; BP diastolic 51–86; PULSE 45–60; RESP 16–18; TEMP 36.5–36.8; O2SAT 94–98
--- NOTE | 2019-10-29 06:59 | HMH.ANESCL ---
[facility] Anesthesia Checklist - Structural Data Admitted From: Home Planned Operative Procedure/s: r carpl tunnel release Consent for Planned Operative Procedure(s) Verified: Yes - Additional verifications Anesthesia Reactions: No Hx Blood Transfusions: No Blood Transfusion Reaction: No - Airway Assessment C-Spine Mobility Assessed: Yes TMJ Mobility Assessed: Yes Dentition: Good Dentition - Neurological Assessment Level of Consciousness: Awake, Alert, Appropriate - Anesthesia Plan Anesthesia Risk discussed: Yes Anesthesia Plan: Verified ASA Class: II Anesthesia Type: MAC w/Block [facility] History I have reviewed the patient's past medical history: Yes Medical History: Reports:: Cancer (rectal), Chronic Obstructive Pulmonary Disease (COPD), Coronary Artery Disease, Deep Vein Thrombosis, Depression, Gastroesophageal Reflux Disease(GERD), Hyperlipidemia, Hypertension, Lung Disease, Osteoporosis Denies:: Diabetes Mellitus Type 1, Diabetes Mellitus Type 2, Internal Pacemaker, MRSA, Seizures *Have you ever received a pneumonia vaccine?: No *Have you received a flu vaccine this season?: No Other Medical History: Reports: Hypothyroidism, Osteoporosis. Denies: Blood Transfusion Reaction Anesthesia experience/problems:: none Laterality Cases: Left: Carpal Tunnel Release Other Surgeries: Yes: No Previous Surgery, Cardiac Catheterization, Cholecystectomy, Colonoscopy, Hysterectomy-Total. No: Pacemaker Amputation: No Fractures: No - *Social History Educational Level: Attended High School Smoking Status: Former smoker Tobacco Type: cigarettes # Packs/Day (cigarettes): 1 #Yrs smoked (if former smoker): 45 Smoking End Date: Alcohol Intake: current Alcohol Intake Frequency:: a few times a month Substance Use Type: denies use *Occupational Status:: disabled Housing: house Household Members: spouse *Travel in the last 8 weeks: None - Psychiatric History Pschychiatric History:: Reports:: Depression Family Hx:: Cancer, Coronary Artery Disease, Hypertension, Thyroid Disorder
--- NOTE | 2019-10-29 10:13 | HMH.OPNOTE ---
Date of procedure: 10/29/19 Pre-op Diagnosis:: Carpal tunnel syndrome, right Post-op Diagnosis:: Same Procedure performed:: Open carpal tunnel release, right wrist Surgeon:: Reji Cervantes MD MARKETING PROGRAMS SPECIALIST:: Jairo Patel Anesthesia: regional Estimated blood loss (mL): 2 Clinical Note:: Patient is a 62-year-old female with right carpal tunnel syndrome with long-standing symptoms. Previously EMG/NCV results confirmed carpal tunnel syndrome on both sides and she had a successful left carpal tunnel release few months ago. Patient is having significant and disabling symptoms on the right side and has failed to respond adequately to conservative management. Therefore the carpal tunnel release surgery is necessary to relieve symptoms, preserve the remaining fibers of the median nerve, improve function and decrease the pain, paresthesias and weakness and to prevent permanent nerve damage. Please refer to my office note for full details. Operative findings:: The intraoperative findings showed the median nerve to be very tightly compressed and hyperemic. The flexor retinaculum was noted to be thick and tight. There was mild synovitis in the carpal tunnel. There was no evidence of any space-occupying lesions within the carpal tunnel. Operative note:: On the day of the surgery the patient was met in the preoperative area. Patient was positively identified and the operative site was marked and initialed by me. A physical examination was performed and the chart was updated. I again discussed the procedure, risks and benefits and alternatives with the patient. The complications discussed include but are not limited to- bleeding, injury to nerves, blood vessels and tendons, infection, wound dehiscence, incomplete relief/continued pain, persistent numbness, palmar hypersensitivity, pillar pain, DVT/PE, complex regional pain syndrome(CRPS), worsening of nerve damage, failure of the condition to improve, incomplete return of function, bowstringing of tendons, weakness of outreach and education social worker strength, recurrence, failure of the surgery to accomplish the desired goals, decreased use of the hand, loss of use of the arm, loss of the hand or arm, loss of life. Likely need for further surgery in the future has been discussed. I've indicated to the patient where the proposed incision would be made and also discussed the possibility of extending the incision if needed to accomplish an effective release. We have discussed how the goal of surgery is to protect the fibers which have remained healthy and hopefully reverse the symptoms of the fibers which are compromised but still recoverable. We have explained that, fibers that are permanently damaged will not recover. Patient asked appropriate questions and all have been answered by me. Patient wished to proceed with the surgery. Patient understood the risks, agreed to proceed with surgery, and no guarantees or assurances were given or implied. The patient was brought to the operating room and placed supine on the operating table. The right upper extremity was placed over a side table. All the bony prominences were well-padded. The patient had a supraclavicular nerve block anesthesia and IV sedation administered by the director career. The right upper extremity was prepped and draped in the usual sterile fashion. A preprocedure timeout was performed as per hospital policy. The skin incision was marked using the Choi's landmarks, just ulnar to the thenar crease. The limb was exsanguinated with the Esmarch bandage and tourniquet was inflated to 250 mmHg. Please see nursing records for the total tourniquet time. Choi's landmarks were utilized and a skin incision was made parallel and just ulnar to the thenar crease with a 15 blade. Blunt tissue dissection was carried through the subcutaneous tissue down to the palmar fascia. The palmar fascia was incised with the knife to reveal the transverse carpal ligament. The transverse carpal ligament was adequately expose
--- NOTE | 2019-10-29 10:21 | SUR.PHASEII ---
1018 - DR OLMSTEAD AT BEDSIDE. REPORT GIVEN PT'S BP 137/90. HR HAS BEEN 45-50. PT IS ON A BETA MAU. SHE TOOK BP MED THIS MORNING. NO NEW ORDERS GIVEN. STATED TO NOTIFY ANESTHESIA OF HR. 1021- Alan ROTH CRNA NOTIFIED OF PT'S BP 137/90 HR 45-50. NO NEW ORDERS GIVEN. PT OK TO DISCHARGE HOME. R/V
== END 2019-10-29 10:25 | disposition home or self-care (01) ==
LOC: OR 06:03
PROVIDERS: PCP Emergency Medicine; Visit Provider Orthopaedic Surgery
PROC: (CPT 64721; principal; 2019-10-29 07:30)
DX: G56.01 Carpal tunnel syndrome, right upper limb (principal); Z79.899 Other long term (current) drug therapy; Z88.8 Allergy status to other drugs, medicaments and biological substances; Z03.818 Encounter for observation for suspected exposure to other biological agents ruled out
CPT/HCPCS: 64721; 96374; U0003

== ENCOUNTER → 2019-11-05 13:23 | Outpatient (CLI) | payer MEDICARE, MEDICAID, SELFPAY ==
--- NOTE | 2019-11-05 13:24 | CT_ITS ---
PROCEDURE: CT CHEST W CON CLINCAL INDICATION: 3 mth f/u nodule Follow-up pulmonary nodule COMPARISON: CHESTWO CT chest wo con from 11/14/2018 CT CHEST W CON from 08/04/2019 TECHNIQUE: IV Contrast: 75ml Optiray 350 Axial images obtained with sagittal and coronal reformats. All CT scans at the facility use one or more dose reduction, viz: automated exposure control, ma/kV adjustment per patient size (including targeted exams where dose is matched to indication, i.e. head), or iterative reconstruction technique. FINDINGS: HEART AND MEDIASTINAL STRUCTURES: There are few scattered small mediastinal lymph nodes. Coronary artery calcifications are present. There is mild thickening of the pericardium somewhat less apparent than when compared to the previous exam LUNGS AND PLEURAL SPACES: There is an irregular opacity in the right apex which is not significantly changed the. The there are changes of COPD with mild centrilobular emphysema. The previously noted irregular opacity in the right upper lobe medially is less apparent with only some minimal density noted at this region on today's exam which could be due to some mild scarring. Nodularity once again noted in the right minor fissure and is not significantly changed. BONY STRUCTURES: Chronic wedge compression changes of T12 UPPER ABDOMEN: Unremarkable. ADDITIONAL FINDINGS: No other significant abnormalities. IMPRESSION: 1. COPD/centrilobular emphysema with scattered areas of scarring once again noted. Previously noted irregular opacity in the right upper lobe medially is much less apparent and is consistent with an area of atelectatic changes which have improved with some minimal residual scarring. 2. No new nodules evident. 3. Other nonacute findings as described above. Dictated by: Tyron Huynh MD 11/06/2019 08:20 Electronically signed by Tyron Huynh MD in [place] 11/06/2019 08:20
== END ==
PROVIDERS: PCP Emergency Medicine; Visit Provider Physician Assistant
DX: R93.89 Abnormal findings on diagnostic imaging of other specified body structures (principal)
CPT/HCPCS: 71260; Q9967

== ENCOUNTER → 2019-11-23 09:37 | Outpatient (CLI) | payer MEDICARE, MEDICAID, SELFPAY | PROVIDERS: PCP Emergency Medicine; Visit Provider Physician Assistant | DX: J44.9 Chronic obstructive pulmonary disease, unspecified (principal) | CPT/HCPCS: 94060; 94618; 94640; 94726; 94729 ==

== ENCOUNTER 2020-01-27 12:01 | Emergency (ER) | payer MEDICARE, MEDICAID, SELFPAY ==
[2020-01-27 12:02] VITALS: BP 135/79; PULSE 89; RESP 18; TEMP 36.9; O2SAT 96; BMI 29.0
--- NOTE | 2020-01-27 12:11 | CT_ITS ---
PROCEDURE: CT ABDOMEN PELVIS W CON CLINICAL INDICATION: cellulitis/abscess abdominal wall, suprapubic COMPARISON: CT ABDPELWO CT abdomen pelvis wo con from 01/09/2019 TECHNIQUE: IV Contrast: 75ML OPTIRAY 350 Oral Contrast None Axial images obtained with sagittal and coronal reformats. All CT scans at the facility use one or more dose reduction, viz: automated exposure control, ma/kV adjustment per patient size (including targeted exams where dose is matched to indication, i.e. head), or iterative reconstruction technique. FINDINGS: LOWER THORAX: Atelectatic or fibrotic changes are present in the right middle lobe and lingula. There is a posterior diaphragmatic hernia containing fat the. Coronary artery calcifications are present. There is minimal thickening of the pericardium ABDOMEN & PELVIS: Status post cholecystectomy with biliary dilatation both intra and extrahepatic. Pancreas, spleen, and adrenal glands have an unremarkable appearance. No renal or ureteral calculi. There is mild dilatation of the renal pelves and proximal ureters on both sides. No evidence of appendicitis. There is moderate amount of retained colonic feces in the descending and sigmoid colon as well as the cecum and ascending colon. There is a small umbilical hernia containing fat. There are post hysterectomy changes. There is mild distention of the urinary bladder. There is mild thickening of the subcutaneous fat in the lower and anterior abdominal wall. This is 11 cm inferior to the umbilicus. The stranding of the fat appears slightly more prominent than when compared to 01/09/2019. No obvious abdominal wall abscess. There is chronic wedge compression changes of T12 which is not significantly changed IMPRESSION: 1. Moderate amount of retained colonic feces. 2. Mild distention of the urinary bladder with mild prominence of the renal pelves and proximal ureters 3. Mild stranding of the anterior abdominal wall fat 11 cm inferior to the umbilicus suggesting some underlying inflammatory changes without obvious abscess. 4. Other nonacute findings as described above Dictated b Tyron Huynh MD 01/27/2020 13:46 Tyron Huynh MD in [place] 01/27/2020 13:46
[2020-01-27 12:29] LABS: Eosinophils # 0.1 K/mm3 (0.0-0.4); Eosinophils % 3.2 % (0.1-12.0); Hematocrit 35.9 % (37.0-47.0); Hemoglobin 11.8 g/dL (12.2-16.2); Lymphocytes # 1.2 K/mm3 (0.7-4.5); Lymphocytes % 29.5 % (10-50); Mean Corpuscular Hemoglobin 30.9 pg (27.0-31.2); Mean Corpuscular Volume 93.8 fl (81-99); Mean Platelet Volume 7.8 fl (7.4-10.4); Monocytes # 0.3 K/mm3 (0.1-1.0); Monocytes % 6.5 % (1.7-9.3); Neutrophils # 2.4 K/mm3 (1.8-7.8); Neutrophils % 59.8 % (37.0-80.0); Platelet Count 219 K/mm3 (142-424); Red Blood Count 3.83 M/mm3 (4.20-5.40); Red Cell Distribution Width 14.6 % (11.5-17.5)
--- NOTE | 2020-01-27 12:29 | HMH.EDSKAF ---
ED Disposition Clinical Impression: Cellulitis Disposition: Home, Self-Care Condition on Discharge: Good Instructions: DI for Skin Abscess, Cellulitis Prescriptions: cephALEXin [Keflex 500mg Cap] 500 mg PO QID 7 Days #28 cap Transmission Status: Pending to [facility] Referrals: Lazarus North MD [Primary Care Provider] - 3 days - Critical Care Critical Care Time: No Attestation: On 01/27/20, the high probability of a clinically significant, sudden or life threatening deterioration of the following system(s) required my full and direct attention, intervention and personal management. The time I documented below is in addition to time spent performing reported procedures but includes the following listed in this critical care notation. Medical Decision Making - Medical Records Medical records reviewed: Yes: I reviewed the patient's medical records. - Joshua Inquiry Pt receiving controlled substance: No Vital Signs: 01/27/20 12:02 Temperature 98.4 F Temperature Source Oral Pulse Rate [Right] 89 Respiratory Rate 18 Blood Pressure [Right Arm] 135/79 Blood Pressure Mean [Right Arm] 97 Blood Pressure Source [Right Arm] Automatic Cuff 02 Sat by Pulse Oximetry 96 Oxygen Delivery Method Room Air - Lab Data Lab Results 01/27/20 12:20: WBC 4.0 L, RBC 3.83 L, Hgb 11.8 L, Hct 35.9 L, MCV 93.8, MCH 30.9, MCHC 33.0, RDW 14.6, Plt Count 219, MPV 7.8, Neut % (Auto) 59.8, Lymph % (Auto) 29.5, Wheeler % (Auto) 6.5, Eos % (Auto) 3.2, Baso % (Auto) 1.0, Neut # (Auto) 2.4, Lymph # (Auto) 1.2, Wheeler # (Auto) 0.3, Eos # (Auto) 0.1, Baso # (Auto) 0.0 01/27/20 12:20: Sodium 140, Potassium 4.6, Chloride 107, Carbon Dioxide 25, Anion Gap 12.6, BUN 25 H, Creatinine 1.30 H, Estimated Creat Clear 58, Estimated GFR 42 L, Est GFR ( Amer) 50 L, Glucose 98, Calcium 9.3, Total Bilirubin 0.3, AST 24, ALT 18, Alkaline Phosphatase 56, Total Protein 6.9, Albumin 3.9, Globulin 3.0, Albumin/Globulin Ratio 1.3 Result diagrams: 01/27/20 12:20 01/27/20 12:20 Orders (Tests/Meds): ED MEDICATIONS Generic Name Dose Route Start Last Admin Trade Name Freq PRN Reason Stop Dose Admin Sodium Chloride 500 mls @ 999 mls/hr 01/27/20 13:30 01/27/20 13:21 Sod Chlor 0.9% 1000ml Bag IV 01/27/20 14:00 999 mls/hr .Q31M JOMAR Administration Discontinued Medications Generic Name Dose Route Start Last Admin Trade Name Freq PRN Reason Stop Dose Admin Ioversol 75 ml 01/27/20 13:13 01/27/20 13:14 Rad-Optiray 350 100ml Vial IV 01/27/20 13:14 75 ml ONCE ONE Administration Protocol Sodium Chloride 10 ml 01/27/20 13:13 01/27/20 13:14 Rad-Saline Flush 10ml Syringe IV 01/27/20 13:14 10 ml ONCE ONE Administration - CT Data CT Scan: Abdomen, Pelvis Time Received: 13:54 Findings Narrative: 1. Moderate amount of retained colonic feces. 2. Mild distention of the urinary bladder with mild prominence of the renal pelves and proximal ureters 3. Mild stranding of the anterior abdominal wall fat 11 cm inferior to the umbilicus suggesting some underlying inflammatory changes without obvious abscess. 4. Other nonacute findings as described above - Reevaluation(s) Time: 13:54 Reevaluation #1: On reevaluation, patient is feeling better. There is no evidence of focal abscess. Patient does have some inflammatory changes, however will be placed on antibiotic therapy. Needs to follow-up with PCP. Given strict return precautions. Verbalized understanding. Medical Decision Narrative: 64-year-old female presented to the emergency department with possible abscess in her abdomen. Patient has had this before in the past. She is afebrile. No significant discharge to palpation. CT will be obtained. Skin/Abscess/FB HPI - General Chief complaint: Skin/Abscess/Foreign Body Stated complaint: old surgerical spot infected Time Seen by Provider: 01/27/20 12:10 Mode of Arrival: Ambulatory
[2020-01-27 12:34] LABS: Chloride 107 mmol/L (98-107); Sodium 140 mmol/L (136-145)
[2020-01-27 12:35] LABS: Potassium 4.6 mmoL/L (3.5-5.1)
[2020-01-27 12:37] LABS: Alanine Aminotransferase 18 U/L (12-78); Albumin Level 3.9 g/dl (3.5-5.0); Albumin/Globulin Ratio 1.3 (1.1-1.8); Alkaline Phosphatase 56 U/L (38-126); Anion Gap 12.6 mEq/L (5-15); Aspartate Amino Transferase 24 U/L (14-36); Bilirubin,Total 0.3 mg/dl (0.2-1.3); Blood Urea Nitrogen 25 mg/dl (7-17); Calcium 9.3 mg/dl (8.4-10.2); Carbon Dioxide 25 mmol/L (22.0-30.0); Creatinine Clearance Estimated 58 mL/min (50-200); Estimated Glomerular Filt Rate 42 ml/min (>60); GFR (African American) 50 ML/MIN (>60); Glucose 98 mg/dl (74-100); Total Protein,Serum 6.9 g/dl (6.3-8.2)
[2020-01-27 14:03] VITALS: BP 134/80; PULSE 75; RESP 18; TEMP 36.9; O2SAT 96
== END 2020-01-27 14:03 | disposition home or self-care (01) ==
PROVIDERS: Emergency Provider Emergency Medicine; PCP Emergency Medicine
DX: L03.311 Cellulitis of abdominal wall (principal); J44.9 Chronic obstructive pulmonary disease, unspecified; I25.10 Atherosclerotic heart disease of native coronary artery without angina pectoris; K21.9 Gastro-esophageal reflux disease without esophagitis; E78.5 Hyperlipidemia, unspecified; I10 Essential (primary) hypertension; F33.1 Major depressive disorder, recurrent, moderate; Z87.891 Personal history of nicotine dependence; Z79.899 Other long term (current) drug therapy; Z88.2 Allergy status to sulfonamides; Z88.5 Allergy status to narcotic agent
CPT/HCPCS: 10060; 74177; 80053; 85025; 96365; 99283; 99284; Q9967

== ENCOUNTER → 2020-01-27 14:06 | Outpatient (CLI) | payer MEDICARE, MEDICAID, SELFPAY ==
[2020-01-27 15:14] LABS: Chloride 107 mmol/L (98-107); Potassium 4.3 mmoL/L (3.5-5.1); Sodium 138 mmol/L (136-145)
[2020-01-27 15:16] LABS: Blood Urea Nitrogen 24 mg/dl (7-17); Estimated Glomerular Filt Rate 46 ml/min (>60); GFR (African American) 55 ML/MIN (>60)
[2020-01-27 15:17] LABS: Anion Gap 13.3 mEq/L (5-15); Calcium 9.3 mg/dl (8.4-10.2); Carbon Dioxide 22 mmol/L (22.0-30.0); Glucose 84 mg/dl (74-100)
== END ==
PROVIDERS: PCP Emergency Medicine; Visit Provider Urology
DX: R00.2 Palpitations; L03.90 Cellulitis, unspecified; I11.9 Hypertensive heart disease without heart failure; E78.5 Hyperlipidemia, unspecified; I25.10 Atherosclerotic heart disease of native coronary artery without angina pectoris
CPT/HCPCS: 36415; 74177; 80048; 80053; 85025; 93270; 96365; 99283; 99284; Q9967

== ENCOUNTER → 2020-04-14 17:05 | Outpatient (CLI) | payer MEDICARE, MEDICAID, SELFPAY | PROVIDERS: Visit Provider Nurse Practitioner Family | DX: R35.0 Frequency of micturition (principal) | CPT/HCPCS: 87086 ==

== ENCOUNTER → 2020-04-22 17:30 | Outpatient (CLI) | payer MEDICARE, MEDICAID, SELFPAY | PROVIDERS: Visit Provider Emergency Medicine | DX: N28.9 Disorder of kidney and ureter, unspecified (principal); N39.0 Urinary tract infection, site not specified | CPT/HCPCS: 87086 ==

== ENCOUNTER → 2020-04-27 13:21 | Outpatient (CLI) | payer MEDICARE, MEDICAID, SELFPAY ==
--- NOTE | 2020-04-27 13:21 | CA_ITS ---
APPROVED REPORT EXAM: Comprehensive 2D, Doppler, and color-flow Echocardiogram Hay Baler: Magda Lorenz RVT Ht: 5 ft 6 in Wt: 180lbs BSA: 1.91 BP: 152/72 mmHg Indications: SOA,CAD,SMOKER,COPD,PRAKASH,HTN,HLD 2D Dimensions LVOT 1.79 cm (M/F) 1.5-2.5 M-Mode Dimensions RVDd 3.21 cm (0.9-2.6) LA Diam 3.63 cm (1.9-4.0) LVDd 5.22 cm (3.5-5.7) Ao Diam 2.83 cm (2.0-3.7) LVDs 3.69 cm (3.5-5.7) IVSd 0.96 cm (0.6-1.1) PWd 0.84 cm (0.6-1.1) EF (Teich) 55.80% FS 29.30% EDV (Teich) 130.70 mL ESV (Teich) 57.80 mL LV Diastology E Decel Time 150.00 (160-240 msec) E/A Ratio 1.1 MED E' 6.10 (< 7 cm/sec) E'/MED E' Ratio 12.87 (>14) LAT E' 11.30 (<10 cm/sec) E/LAT E' Ratio 6.95 (>14) Aortic Valve AI PHT 669.00 ms Mitral Valve MV E Max Renny. 79.00 (40-130 cm/s) MV A Velocity 73.00 (40-130 cm/s) E/A Ratio 1.08 MV Decel. Time 150.00 (160-240 ms) MV PHT 44.00 ms Pulmonary Valve PV Peak Velocity 104.00 (50-150 cm/s) Tricuspid Valve TR P. Velocity 337.00 cm/s Left Ventricle Left atrium is mildly enlarged, left ventricle is normal size, mild concentric left ventricular hypertrophy, visually estimated ejection fraction 55% with no regional wall motion abnormality. Grade 1 diastolic dysfunction seen without tissue Doppler evidence of raise left atrial pressure. Right Ventricle Right atrium and right ventricle mildly enlarged with normal contractility. Aortic Valve Aortic valve is minimally thickened and fibrosed, there is no aortic stenosis, there is mild aortic insufficiency. Mitral Valve Mitral valve is grossly normal, there is mild mitral regurgitation. Tricuspid Valve Tricuspid valve grossly normal, there is mild tricuspid regurgitation, calculated right ventricular systolic pressure is 45 mmHg. Pulmonic Valve Pulmonic valve is poorly visualized. Great Vessels Aortic root is normal size. Pericardium Small pericardial effusion noted. Conclusion 1. Mild biatrial enlargement, normal left ventricular size, mild concentric left ventricular hypertrophy, visually estimated ejection fraction 55% with no regional wall motion abnormality, grade 1 diastolic dysfunction seen without tissue Doppler evidence of raise left atrial pressure. 2. Mildly enlarged right ventricle with normal contractility. 3. Mild aortic, mild mitral and tricuspid regurgitation, calculated right ventricular systolic pressure is 45 mmHg. 4. Small pericardial effusion noted. Electronically signed by : Montrell John, 04/28/2020 15:29:24
[2020-04-27 18:04] LABS: Anion Gap 11.5 mEq/L (5-15); Blood Urea Nitrogen 22 mg/dl (7-17); Calcium 8.7 mg/dl (8.4-10.2); Carbon Dioxide 29 mmol/L (22.0-30.0); Chloride 105 mmol/L (98-107); Estimated Glomerular Filt Rate 56 ml/min (>60); GFR (African American) 68 ML/MIN (>60); Glucose 94 mg/dl (74-100); Potassium 4.5 mmoL/L (3.5-5.1); Sodium 141 mmol/L (136-145)
[2020-04-27 18:12] LABS: NT Pro Brain Natriuretic Pep. 137 pg/mL (0-125)
[2020-04-27 18:20] LABS: Free T4 (Free Thyroxine) 1.19 ng/dl (0.78-2.19)
[2020-04-27 18:34] LABS: Thyroid Stimulating Hormone 0.31 uIU/mL (0.465-4.68)
== END ==
PROVIDERS: PCP Emergency Medicine; Visit Provider Internal Medicine Cardiovascular Disease
DX: E78.2 Mixed hyperlipidemia (principal); G47.33 Obstructive sleep apnea (adult) (pediatric); I11.9 Hypertensive heart disease without heart failure; I25.10 Atherosclerotic heart disease of native coronary artery without angina pectoris; J42 Unspecified chronic bronchitis; R06.02 Shortness of breath; Z72.0 Tobacco use; Z99.89 Dependence on other enabling machines and devices
CPT/HCPCS: 36415; 80048; 83880; 84439; 84443; 93306

== ENCOUNTER → 2020-05-06 10:42 | Outpatient (CLI) | payer MEDICARE, MEDICAID, SELFPAY ==
[2020-05-07 14:54] LABS: Covid-19 Nasal PCR Sendout Lex NOT DETECTED
== END ==
PROVIDERS: PCP Emergency Medicine; Visit Provider Nurse Practitioner Family
DX: Z03.818 Encounter for observation for suspected exposure to other biological agents ruled out (principal)
CPT/HCPCS: U0004

== ENCOUNTER → 2020-06-21 16:30 | Outpatient (CLI) | payer MEDICARE, MEDICAID, SELFPAY | PROVIDERS: Visit Provider Urology | DX: N39.0 Urinary tract infection, site not specified (principal) | CPT/HCPCS: 87086; 87088; 87186 ==

== ENCOUNTER → 2020-06-28 10:45 | Outpatient (CLI) | payer MEDICARE, MEDICAID, SELFPAY | PROVIDERS: PCP Emergency Medicine; Visit Provider Emergency Medicine | DX: Z03.818 Encounter for observation for suspected exposure to other biological agents ruled out (principal) | CPT/HCPCS: U0003 ==

== ENCOUNTER → 2020-07-06 09:25 | Outpatient (CLI) | payer MEDICARE, MEDICAID, SELFPAY ==
--- NOTE | 2020-07-06 09:39 | CT_ITS ---
PROCEDURE: CT ABDOMEN PELVIS WO/W CON CLINICAL INDICATION: urinary leakage, vesico vaginal fistula COMPARISON: CT CT ABDOMEN PELVIS W CON from 01/27/2020 TECHNIQUE: IV Contrast: 75ML Isovue 370 Oral Contrast None Axial images obtained with sagittal and coronal reformats. All CT scans at the facility use one or more dose reduction, viz: automated exposure control, ma/kV adjustment per patient size (including targeted exams where dose is matched to indication, i.e. head), or iterative reconstruction technique. FINDINGS: LOWER THORAX: There are coronary artery calcifications. There is minimal thickening of the pericardium anteriorly measuring 7 mm. There is a small rent in the diaphragm posteriorly on the right with peritoneal fat extending into the pleural space consistent with a small diaphragmatic hernia containing fat. The fat within the hernia measures 6.9 by 4.8 cm cm. ABDOMEN & PELVIS: Unremarkable appearing liver. There has been a prior cholecystectomy. There is biliary ectasia with the common hepatic duct measuring up to 15 mm in the common bile duct measuring 12 mm. A small focus of gas is present in the distal aspect of the common bile duct and could be due to small diverticulum, pneumobilia, or a small stone containing gas. This is not significantly changed. There is a moderate amount of retained colonic feces. There is prominence of the gastric mucosa which could be due to nondistention. Gastritis would be included in the differential diagnosis. The adrenal glands are unremarkable as is the spleen. Unremarkable appearing pancreas. No renal or ureteral calculi. No hydronephrosis. No evidence of appendicitis. There is colonic diverticulosis but no evidence of diverticulitis. There remains some stranding of the anterior abdominal fat in the infraumbilical region as previously described slightly improved. There has been a prior hysterectomy. No abnormal fluid collections evident in the pelvis. Immediate post enhanced images 10 minutes post enhanced and 20 minutes post enhanced images are obtained. No fistulas are identified. There is no evidence of contrast collecting within the vagina from the urinary bladder. There is minimal thickening of the urinary bladder wall which is nonspecific and could be seen with nondistention or cystitis. Moderate wedging noted of the T12 vertebral body not significantly change with mild kyphosis and minimal retropulsion of the posterior superior aspect of T12 by 3-4 mm. IMPRESSION: 1. No acute finding. 2. Right-sided diaphragmatic hernia posteriorly containing fat 3. Prior hysterectomy. A vesicle vaginal fistula is not identified on delayed images. If this is a high clinical suspicion then cystogram may provide further evaluation to exclude a fistula. 4. Colonic diverticulosis but no evidence of diverticulitis. 5. Prior cholecystectomy with biliary ectasia in a small gas density at the distal CBD region as described above Dictated by: Tyron Huynh MD 07/07/2020 11:32 Tyron Huynh MD in [place] 07/07/2020 11:32
[2020-07-06 09:51] LABS: Blood Urea Nitrogen 41 mg/dl (7-17); Estimated Glomerular Filt Rate 33 ml/min (>60); GFR (African American) 40 ML/MIN (>60)
[2020-07-06 12:31] LABS: Coronavirus 19 IgG Antibody Negative (Negative); Coronavirus 19 IgM Antibody Negative (Negative)
== END ==
PROVIDERS: PCP Emergency Medicine; Visit Provider Urology
DX: Z01.812 Encounter for preprocedural laboratory examination; Z11.52 Encounter for screening for COVID-19; N39.45 Continuous leakage; N82.0 Vesicovaginal fistula
CPT/HCPCS: 36415; 74178; 82565; 84520; 86328; Q9967

== ENCOUNTER 2020-07-08 07:48 | Day surgery (SDC) | payer MEDICARE, MEDICAID, SELFPAY ==
[2020-07-05 13:13] VITALS: BMI 68.3
[2020-07-08 08:40] VITALS: BP 102/54; PULSE 59; RESP 18; TEMP 36.1; O2SAT 98
[2020-07-08 08:49] VITALS: RESP 18
[2020-07-08 09:36] VITALS: BP 114/56; PULSE 56; RESP 18; TEMP 36.6; O2SAT 98
--- NOTE | 2020-07-08 10:09 | HMH.OPNOTE ---
Date of procedure: 07/08/20 Pre-op Diagnosis:: Urinary incontinence Post-op Diagnosis:: Stress urinary incontinence Procedure performed:: Cystourethroscopy, vaginal examination Surgeon:: Roger To MD Anesthesia: local Estimated blood loss (mL): 0 Clinical Note:: 64-year-old white female with for several year history of urinary incontinence. Patient states that she leaks continuously and has had a history of complicated hysterectomy. Recent CT scan shows no evidence of fistula and cystoscopic evaluation today as planned. Operative findings:: No evidence of fistulous tract in the bladder. There is evidence of stress urinary incontinence. Operative note:: Patient taken to the cystoscopy suite after informed consent was obtained. On the stretcher she was placed into the frog-leg position and prepped and draped in the standard surgical fashion. 2% lidocaine placed into the urethra and after 5 minutes the flexible cystoscope introduced into the urethral meatus. Passed into the bladder without difficulty and the bladder examined in a systematic fashion. There is no evidence of mucosal abnormalities, stones, trabeculation or cellule formation. The ureteral orifices in their normal anatomic position. Was a small amount of debris in the bladder. The bladder neck and urethra appeared within normal limits as well. The bladder was filled to near capacity scope removed. Examination then performed in the sitting up position and there was significant leakage per urethra with sitting up and again with coughing. Patient does have a 2+ rectocele present but no evidence of a cystocele. Discussed the findings today and we discussed transvaginal taping or transobturator taping to help with the stress urinary incontinence. Locations of the procedure were also discussed including risk of failure, risk of urinary retention and bleeding. Patient wishes to proceed we will set this up at her earliest convenience. Condition: stable Disposition: same day Specimens:: None Complications:: None
== END 2020-07-08 09:50 | disposition home or self-care (01) ==
LOC: OUTP 07:50
PROVIDERS: PCP Emergency Medicine; Visit Provider Urology
PROC: (CPT 52000; principal; 2020-07-08 09:00)
DX: N39.3 Stress incontinence (female) (male) (principal); Z88.6 Allergy status to analgesic agent; Z88.2 Allergy status to sulfonamides; Z79.899 Other long term (current) drug therapy; J44.9 Chronic obstructive pulmonary disease, unspecified; I25.10 Atherosclerotic heart disease of native coronary artery without angina pectoris; I73.9 Peripheral vascular disease, unspecified; K21.9 Gastro-esophageal reflux disease without esophagitis; F32.9 Major depressive disorder, single episode, unspecified; E78.5 Hyperlipidemia, unspecified; I10 Essential (primary) hypertension; M81.0 Age-related osteoporosis without current pathological fracture
CPT/HCPCS: 52000

== ENCOUNTER → 2020-07-12 10:34 | Outpatient (CLI) | payer MEDICARE, MEDICAID, SELFPAY ==
--- NOTE | 2020-07-12 10:38 | XR_ITS ---
PROCEDURE: XR SHOULDER LT MIN 2V CLINICAL INDICATION: left shoulder pain COMPARISON: CR SHOU3L [id number] VIEWS from 01/06/2014 CR [id number] XR shoulder LT min 2V from 09/27/2018 CR SHOULDCMRT XR shoulder RT min 2V from 10/31/2018 FINDINGS: No fracture or dislocation. No lytic or blastic change. There is normal mineralization. The joint spaces are well-preserved. No significant degenerative/arthritic changes. No erosive changes evident. Other findings:No subacromial stenosis IMPRESSION: Negative left shoulder Dictated by: Tyron Huynh MD 07/12/2020 13:40 Tyron Huynh MD in [place] 07/12/2020 13:40
== END ==
PROVIDERS: PCP Emergency Medicine; Visit Provider Orthopaedic Surgery
DX: M75.42 Impingement syndrome of left shoulder (principal)
CPT/HCPCS: 73030

== ENCOUNTER → 2020-07-18 14:57 | Outpatient (CLI) | payer MEDICARE, MEDICAID, SELFPAY ==
--- NOTE | 2020-07-18 14:57 | MR_ITS ---
PROCEDURE: MR SHOULDER LT WO CON CLINICAL INDICATION: left shoulder pain; evaluate for rotator cuff tear LT SHOULDER PAIN XYRS. PAIN WHEN RAISING ARM ABOVE HEAD OR BEHIND BACK. NO INJURY. COMPARISON: CR XR SHOULDER LT MIN 2V from 07/12/2020 TECHNIQUE: Routine multiplanar multi echo sequences are performed without gadolinium enhancement. FINDINGS: There is mild subacromial stenosis at 5 mm. There is thickening of the distal aspect of the supraspinatus tendon with slight increase in T2 signal distally consistent with tendinopathy/tendinosis. There is no evidence of rotator cuff tear. The bicipital tendon is in place. There is a small amount fluid in the bicipital tendon sheath. The subscapularis and teres minor tendons are intact as is the infraspinatus tendon. There is suspected SLAP tear of the glenoid labrum. There are mild osteoarthritic changes of the glenohumeral joint and acromioclavicular joint. IMPRESSION: 1. Suspected SLAP tear of the glenoid labrum. 2. No evidence of rotator cuff tear. 3. Tendinopathy/tendinosis of the supraspinatus tendon. 4. Possible tenosynovitis of the bicipital tendon Dictated by: Tyron Huynh MD 07/20/2020 10:06 Tyron Huynh MD in [place] 07/20/2020 10:06
== END ==
PROVIDERS: PCP Emergency Medicine; Visit Provider Orthopaedic Surgery
DX: G89.29 Other chronic pain (principal); M25.512 Pain in left shoulder
CPT/HCPCS: 73221

== ENCOUNTER → 2020-07-23 10:06 | Outpatient (CLI) | payer MEDICARE, MEDICAID, SELFPAY ==
[2020-07-23 10:30] LABS: Basophils % 1.2 % (0.1-2.0); Eosinophils # 0.2 K/mm3 (0.0-0.4); Eosinophils % 4.8 % (0.1-12.0); Hematocrit 36.5 % (37.0-47.0); Lymphocytes # 1.1 K/mm3 (0.7-4.5); Lymphocytes % 34.5 % (10-50); Mean Corpuscular HGB Conc 32.9 g/dL (31.8-35.4); Mean Corpuscular Hemoglobin 29.3 pg (27.0-31.2); Mean Corpuscular Volume 89.1 fl (81-99); Mean Platelet Volume 7.8 fl (7.4-10.4); Monocytes # 0.2 K/mm3 (0.1-1.0); Monocytes % 6.9 % (1.7-9.3); Neutrophils # 1.6 K/mm3 (1.8-7.8); Neutrophils % 52.6 % (37.0-80.0); Platelet Count 211 K/mm3 (142-424); Red Cell Distribution Width 15.2 % (11.5-17.5); White Blood Count 3.1 K/mm3 (4.8-10.8)
[2020-07-23 11:05] LABS: Blood Urea Nitrogen 28 mg/dl (7-17); Calcium 9.9 mg/dl (8.4-10.2); Carbon Dioxide 27 mmol/L (22.0-30.0); Chloride 101 mmol/L (98-107); Estimated Glomerular Filt Rate 35 ml/min (>60); GFR (African American) 43 ML/MIN (>60); Glucose 98 mg/dl (74-100); Sodium 138 mmol/L (136-145)
[2020-07-23 11:30] LABS: Coronavirus 19 IgG Antibody Negative (Negative); Coronavirus 19 IgM Antibody Negative (Negative)
== END ==
PROVIDERS: Visit Provider Urology
DX: R32 Unspecified urinary incontinence (principal); Z01.812 Encounter for preprocedural laboratory examination; Z20.822 Contact with and (suspected) exposure to COVID-19
CPT/HCPCS: 36415; 80048; 85025; 86328

== ENCOUNTER 2020-07-25 08:24 | Day surgery (SDC) | payer MEDICARE, MEDICAID, SELFPAY ==
[2020-07-20 12:56] VITALS: BMI 30.9
[2020-07-25] VITALS (16 sets, daily range): BP systolic 105–135; BP diastolic 62–92; PULSE 58–75; RESP 16–20; TEMP 36.1–43; O2SAT 92–97
--- NOTE | 2020-07-25 09:31 | HMH.ANESCL ---
[facility] Anesthesia Checklist - Patient Identification Patient Identification: Arm Band - Structural Data Admitted From: Home Planned Operative Procedure/s: Transobturator Taping Consent for Planned Operative Procedure(s) Verified: Yes Verified Documents: Surgical Consent, History and Physical - NPO Status Verified Time NPO: 00:00 - Additional verifications Anesthesia Reactions: No Hx Blood Transfusions: No Blood Transfusion Reaction: No - Airway Assessment C-Spine Mobility Assessed: Yes (mp2) TMJ Mobility Assessed: Yes Dentition: Good Dentition - Neurological Assessment Level of Consciousness: Awake, Alert - Anesthesia Plan Anesthesia Risk discussed: Yes Anesthesia Plan: Verified ASA Class: III Anesthesia Type: General [facility] History I have reviewed the patient's past medical history: Yes Medical History: Reports:: Cancer (anal), Chronic Obstructive Pulmonary Disease (COPD), Coronary Artery Disease, Deep Vein Thrombosis, Depression, Gastroesophageal Reflux Disease(GERD), Hyperlipidemia, Hypertension, Lung Disease, Osteoporosis, Seizures Denies:: Diabetes Mellitus Type 1, Diabetes Mellitus Type 2, Internal Pacemaker, MRSA *Have you ever received a pneumonia vaccine?: Yes *Have you received a flu vaccine this season?: Yes Other Medical History: Reports: Hypothyroidism, Osteoporosis. Denies: Blood Transfusion Reaction Anesthesia experience/problems:: nac Laterality Cases: Bilateral: Carpal Tunnel Release, Cataract Other Surgeries: Yes: Cardiac Catheterization, Cholecystectomy, Colonoscopy, Hysterectomy-Total. No: Pacemaker Amputation: No Fractures: No - *Social History Last grade of school completed: 11th or 12th Smoking Status: Former smoker Tobacco Type: cigarettes # Packs/Day (cigarettes): 1 #Yrs smoked (if former smoker): 45 Alcohol Intake: current Alcohol Intake Frequency:: a few times a month Substance Use Type: marijuana *Occupational Status:: disabled Housing: house Household Members: spouse *Travel in the last 8 weeks: None - Psychiatric History Pschychiatric History:: Reports:: Depression Family Hx:: Cancer, Coronary Artery Disease, Hypertension, Thyroid Disorder
--- NOTE | 2020-07-25 11:40 | P.PN_ITS ---
[facility] Anesthesia Record Part I Intake, IV Amount: 1,200 Estimated blood loss (mL): 10 Urine output (mL): 0 Blood Pressure: 124/83 SaO2: 92 Pulse Rate: 62 Respiratory Rate: 16 Temperature: 97.8 F Patient is:: Drowsy, Stable Stable to PACU at:: 11:35
[2020-07-25 12:11] LABS: Microscopic,Cath URINE MICROSCOPIC (MICROSCOPIC)
[2020-07-25 12:20] LABS: Appearance,Urine/Cath CLEAR (Clear); Bilirubin,Cath Negative (Negative); Blood, Urine/Cath 3+ (Negative); Color,Urine/Cath YELLOW (Yellow); Glucose,Urine/Cath (UA) Negative (Negative); Ketones,Urine/Cath Negative (Negative); Leukocyte Esterase,Cath Negative (Negative); Nitrate,Cath Negative (Negative); Protein,Urine/Cath TRACE (Negative); Specific Gravity, Urine/Cath 1.015 (1.005-1.030); Urobilinogen,Cath 0.2 EU/dl (0.2)
[2020-07-25 12:32] LABS: Bacteria,Urine/Cath TRACE /lpf
--- NOTE | 2020-07-25 13:04 | P.OP_ITS ---
Date of procedure: 07/25/20 Pre-op Diagnosis:: Stress urinary incontinence Post-op Diagnosis:: Same Procedure performed:: Transobturator tape placement/cystoscopy Surgeon:: Roger To MD PROJECT FINANCIAL ANALYST:: Rayo Ryan Anesthesia: YADIRA Estimated blood loss (mL): 20 Clinical Note:: 64-year-old white female with severe stress urinary incontinence. Previous ev aluation physical examination and cystoscopy consistent with stress urinary incontinence. She presents today for transobturator tape placement. Operative findings:: Mild rectocele noted on physical examination. Bladder is well supported. Procedure went well without complication. Operative note:: Patient taken to the operating room after informed consent was obtained. Was placed on the operating table in the supine position and general anesthesia administered. Sequential compression devices and preoperative antibiotics administered. She was then placed into the dorsal lithotomy position and prepped and draped in the standard surgical fashion. 16 Georgian Almazan catheter placed in the bladder drained and Almazan then clamped and placed onto the abdomen. The inner thighs were marked just below the insertion site of the abductor longus and the weighted vaginal speculum placed. Local anesthetic placed into the thigh incision as well as into the anterior vaginal wall. Scalpel used to make some small incisions in the inner thigh on the plane equal with the clitoris. Incision was then made in the anterior vaginal wall about a centimeter below the meatus. The periurethral space was then developed sharply and bluntly. Was able to bluntly dissect the endopelvic fascia around the bladder neck. Patient has had previous complications from hysterectomy. Our [employer] TOT kit was then opened. The trocar was placed into the right inner thigh incision and with my right finger inside the vaginal incision the trocar was brought around the ischio pubic ramus and through the vaginal incision guided by my finger. Cystoscopy then performed showing no evidence of bladder or urethral trauma. Almazan catheter was replaced and one end of the transobturator tape placed onto the trocar and the trocar was brought back out through the thigh incision. The identical procedure was performed on the patient's left side. The other end of the transobturator tape passed around the trocar and it was brought out through the left thigh incision. Cystoscopy after placement of the left-sided trocar also showed no evidence of bladder or urethral trauma. Transobturator tape was then snugged up to the urethra. A clamp was placed between the urethra and the tape and the ends of the sleeves were cut and the sleeves were removed with upward tension. The midline tab was then excised and removed. There was good placement of the tape and there is no bunching or overlapping. The ends of the tape were cut at the thigh incision. The anterior vaginal wall was closed with a running 3-0 chromic and Dermabond was placed onto the thigh incisions. Vaginal packing placed into the vagina and Almazan catheter left indwelling to the recovery room. She tolerated well without complications. Condition: stable Disposition: PACU Specimens:: None Complications:: None
--- NOTE | 2020-07-25 13:11 | PC.NURSE ---
1155-300 ml's of sterile saline inserted into bladder via banks catheter at this time as ordered per MD, banks catheter then removed and pt educated that she will need to void prior to leaving hospital today, vss, pt anuj well and stable, denies pain 1202-detailed report called to STEFFI Wolfe 1205-pt transported to post op via stretcher and left in care of STEFFI Ma, vss, pt stable
--- NOTE | 2020-07-25 13:40 | P.PN_ITS ---
[facility] Anesthesia Record Part II Discharge Time: 12:05 Destination: Medical Surgical Department PACU nurse assessment reviewed?: Yes Patient Condition:: Good Anesthesia Complications:: None Swallowing reflex intact?: Yes Cyanosis?: No Blood Pressure: 114/83 Pulse Rate: 59 Temperature: 98.1 F Mental Status: Alert & Oriented Pain level:: 0 Nausea and/or vomitting:: None Intake, IV Amount: 0
== END 2020-07-25 14:26 | disposition home or self-care (01) ==
LOC: OR 08:25
PROVIDERS: PCP Emergency Medicine; Visit Provider Urology
PROC: (CPT 57288; principal; 2020-07-25 10:00)
DX: N39.3 Stress incontinence (female) (male) (principal)
CPT/HCPCS: 57288; 81001; 87086; 96374; 99202; C1771; G0463; J2405

== ENCOUNTER 2020-07-25 19:40 | Emergency (ER) | payer MEDICARE, MEDICAID, SELFPAY ==
[2020-07-25 19:40] VITALS: BP 104/68; PULSE 68; RESP 19; TEMP 36.9; O2SAT 98; BMI 29.9
[2020-07-25 20:12] VITALS: BP 104/68; PULSE 68; RESP 19; TEMP 36.9; O2SAT 98
--- NOTE | 2020-07-25 20:14 | HMH.EDUTC ---
[facility] Disposition Clinical Impression: Banks catheter problem Qualifiers: Encounter type: initial encounter Qualified Code(s): T83.9XXA - Unspecified complication of genitourinary prosthetic device, implant and graft, initial encounter Disposition: Home, Self-Care Condition on Discharge: Good Instructions: How to Care for Your Banks Catheter -- Female Additional Instructions: If you are still having pain in the morning follow up with Dr To in the office as advised make sure to call first for appointment Return if needed Straight to ER if any life threatening symptoms Referrals: Lazarus North MD [Primary Care Provider] - As needed Roger To MD [Staff Physician] - Time of Disposition: 20:21 Medical Decision Making - Joshua Inquiry Pt receiving controlled substance: No Joshua was queried for this patient: No Vital Signs: 07/25/20 19:40 07/25/20 20:12 Temperature 98.4 F 98.4 F Temperature Source Oral Pulse Rate 68 Pulse Rate [Right Brachial] 68 Respiratory Rate 19 19 Blood Pressure 104/68 L Blood Pressure [Right Arm] 104/68 L Blood Pressure Mean [Right Arm] 80 Blood Pressure Source [Right Arm] Automatic Cuff Blood Pressure Position [Right Arm] Sitting 02 Sat by Pulse Oximetry 98 Oxygen Delivery Method Room Air - Physician Consults Physician Consulted: Yousuf Time: 19:45 Reason -: Urology Eval/Care Comment/Response: Spoke with Dr To and informed him that patient wanted Banks cath removed and complained with pain Banks draining well at this time Recommended to discuss with patient to leave in tonight due to her inability to urinate after surgery earlier today and if she is still having pain and discomfort she can see him tomorrow in the office and he will remove it. Patient agreed Medical Decision Narrative: Banks not secured to leg and patient had wadded up in attends and it was pulling at the cath Cath secured to leg and patient reported no longer having pulling pain on cath and patient verbalized understanding to follow up in the office tomorrow morning if she is still having pain and discomfort from cath Nurse emptied banks bag see recording output [facility] HPI - General Stated complaint: catheter causing pain Time Seen by Provider: 07/25/20 20:14 Mode of Arrival: Ambulatory Source of Information: Patient Limitations: No Limitations Description of Symptoms (Recalled from Triage Doc. by RN): PATIENT SENT HERE FROM TRIAGE. PATIENT C/O PAIN AROUND URINARY CATHETER. PATIENT HAD A BLADDER SLING PERFORMED TODAY. SHE IS RATING PAIN 8/10 AT THIS TIME HEENT Symptoms (Recalled from RN notes): No Resp Symptoms (Recalled from RN notes): No Skin Symptoms (Recalled from RN notes): No MS Symptoms (Recalled from RN notes): No Functional Status (Recalled from RN notes): WNL - History of Present Illness Provider Complaint: Patient states that she had bladder sling surgery done earlier today and she was having some pain from the cath and wanted to have it removed States that she felt like it was pulling and causing her to have pain Patient states that the banks cath is draining good and she has had to empty it multiple times but she wanted to see if she could get it taken out - Related Data Home Medications Medication Instructions Recorded Confirmed carvedilol 6.25 mg tablet 6.25 mg PO BID tab 01/27/20 07/20/20 lisinopril 40 mg tablet 40 mg PO DAILY tab 06/02/20 07/20/20 Albuterol Sulfate [Proventil Hfa] See Rx Instructions .ROUTE QID 07/05/20 07/20/20 Alendronate Sodium [Fosamax 70mg 70 mg PO QWEEK 07/05/20 07/20/20 Tablet] Ascorbic Acid [Vitamin C] 500 mg PO DAILY 07/05/20 07/20/20 Aspirin [Low Dose Aspirin EC] See Rx Instructions .ROUTE .COMPLEX 07/05/20 07/20/20 Calcium Carbonate [Calcium] 600 mg PO DAILY 07/05/20 07/20/20 Folic Acid/Vit B Complex and C 400 mcg PO DAILY 07/05/20 07/20/20 [Super B-Complex Folic-Vit C Tb] Furosemide [Furosemide 20mg Tab*] See Rx Instructions .ROUTE .COMPLE
--- NOTE | 2020-07-25 20:23 | PC.NURSE ---
450 ML CLEAR YELLOW URINE DRAINED FROM ACOSTA CATHETER BAG AT THIS TIME
== END 2020-07-25 20:25 | disposition home or self-care (01) ==
LOC: UTC 19:50 → ER 19:54 → UTC 19:54 → ER 19:55 → UTC 19:56
PROVIDERS: Emergency Provider Nurse Practitioner; PCP Emergency Medicine
DX: T83.9XXA Unspecified complication of genitourinary prosthetic device, implant and graft, initial encounter (principal); E78.5 Hyperlipidemia, unspecified; J44.9 Chronic obstructive pulmonary disease, unspecified; I25.10 Atherosclerotic heart disease of native coronary artery without angina pectoris; K21.9 Gastro-esophageal reflux disease without esophagitis; Z88.2 Allergy status to sulfonamides; Z88.6 Allergy status to analgesic agent; Z79.899 Other long term (current) drug therapy
CPT/HCPCS: 99202; G0463

== ENCOUNTER 2020-08-06 14:11 | Emergency (ER) | payer MEDICARE, MEDICAID, SELFPAY ==
[2020-08-06 14:12] VITALS: BP 139/95; PULSE 66; RESP 16; TEMP 36.8; O2SAT 98; BMI 30.9
--- NOTE | 2020-08-06 14:39 | XR_ITS ---
PROCEDURE: XR SACROILIAC JOINT BI MIN 3V Referring Doctor: Erlin Patel Patient Age:64Y CLINICAL INDICATION: fall, bilat SI joint Pelvic pain COMPARISON: CT CT ABDOMEN PELVIS WO/W CON from 07/06/2020 FINDINGS: AP and oblique views bilateral SI joints: SI joints appear intact bilaterally and WNL. No fracture evident at or about SI joints. Views sacrum on these images intact as well. The visualized osseous pelvis these views unremarkable as well. AP view of hips unremarkable but Suggestion mild degenerative disc space narrowing at L5/S1 IMPRESSION: SI joints appears intact-no fracture. Included views of osseous pelvis unremarkable & intact Dictated by: Lake Rodriguez MD 08/06/2020 16:11 Lake Rodriguez MD in [place] 08/06/2020 16:11
--- NOTE | 2020-08-06 14:39 | HMH.EDGENADL ---
ED Disposition Clinical Impression: Sacroiliitis Disposition: Home, Self-Care Condition on Discharge: Good Instructions: DI Sacroiliac Joint Dysfunction Prescriptions: methylPREDNISolone [Medrol] 4 mg PO DIRECTED #21 pack Prescription Printed Referrals: Lazarus North MD [Primary Care Provider] - 3 days - Critical Care Critical Care Time: No Attestation: On 08/06/20, the high probability of a clinically significant, sudden or life threatening deterioration of the following system(s) required my full and direct attention, intervention and personal management. The time I documented below is in addition to time spent performing reported procedures but includes the following listed in this critical care notation. Medical Decision Making - Medical Records Medical records reviewed: Yes: I reviewed the patient's medical records. - Joshua Inquiry Pt receiving controlled substance: No Vital Signs: 08/06/20 14:12 Temperature 98.2 F Temperature Source Oral Pulse Rate [Radial] 66 Respiratory Rate 16 Blood Pressure [Right Arm] 139/95 H Blood Pressure Mean [Right Arm] 109 Blood Pressure Position [Right Arm] Sitting 02 Sat by Pulse Oximetry 98 Oxygen Delivery Method Room Air - Lab Data Lab Results 08/06/20 14:30: Urine Color Yellow, Urine Appearance Clear, Urine pH 7.0, Ur Specific [place] <= 1.005, Urine Protein Negative, Urine Glucose (UA) Negative, Urine Ketones Negative, Urine Blood Trace-l, Urine Nitrate Negative, Urine Bilirubin Negative, Urine Urobilinogen 0.2, Ur Leukocyte Esterase 2+ A, Urine RBC Occasional, Urine WBC 3-5, Ur Squamous Epith Cells 3-5, Urine Bacteria None Orders (Tests/Meds): ED MEDICATIONS Discontinued Medications Generic Name Dose Route Start Last Admin Trade Name Alexanderq PRN Reason Stop Dose Admin Ketorolac Tromethamine 60 mg 08/06/20 14:27 08/06/20 14:37 Ketorolac 60mg/2ml Vial IM 08/06/20 14:28 60 mg ONCE ONE Administration ORDERS Category Date Time Status Sacroiliac joint XR bilateral min 3 view [XR sacroiliac Exams 08/06/20 14:39 Taken joint BI min 3V] Stat Urine Culture Stat Micro 08/06/20 14:30 Received - Radiology Data #1 Image(s): Pelvis Image Reviewed: Yes I reviewed the patient's radiology image Preliminary Findings: No Fracture Seen Medical Decision Narrative: History, exam, work-up is not consistent with cauda equina. Urinalysis negative for infection. She complains of bilateral SI pain suggestive of sacroiliitis. Given Toradol here with some improvement. Sacral x-ray shows no acute fracture or dislocation per my read. Discharged home with prescription for steroid therapy and follow-up with PCP in 2 to 3 days for reevaluation. General Adult HPI - General Chief complaint: PAIN Stated complaint: Kidney pain Time Seen by Provider: 08/06/20 14:30 Mode of Arrival: Ambulatory Source of Information: Patient Limitations: No Limitations Description of Symptoms (Recalled from ER Triage Doc. by RN): to ed per pvt car with c/o lower back pain starting yesterday progressively getting worse. pt c/o urinary incontinence - History of Present Illness HPI narrative: This is a 64-year-old female with a past medical history significant for chronic back pain who presents to the emergency department for bilateral sacroiliac pain, left greater than right after slipping in the shower yesterday because the floor was wet. She fell onto her butt. She tried placing a Lidoderm patch on the left SI area which has helped somewhat, but continues to have pain. No numbness, tingling, weakness of her lower extremities distally. She has not had any new bladder or bowel problems. Moving her legs without difficulty. Walking does make the pain worse. She denies any dysuria or flank pain. No fevers or vomiting. Patient does have urinary incontinence, but this is chronic since she had a bladder tack procedure. - Related Data Home Medications
[2020-08-06 14:42] LABS: Microscopic, Urine URINE MICROSCOPIC (MICROSCOPIC)
[2020-08-06 14:47] LABS: Appearance,Urine CLEAR (Clear); Bilirubin,Urine Negative (Negative); Blood, Urine TRACE-L (Negative); Color,Urine YELLOW (Yellow); Glucose,Urine (UA) Negative (Negative); Ketones,Urine Negative (Negative); Leukocyte Esterase,Urine 2+ (Negative); Nitrate,Urine Negative (Negative); Protein,Urine Negative (Negative); Specific Gravity, Urine <= 1.005 (1.005-1.030); Urobilinogen,Urine 0.2 EU/dl (0.2)
[2020-08-06 14:54] LABS: RBC,Urine Occasional #/hpf (0-3)
[2020-08-06 15:44] VITALS: BP 140/74; PULSE 78; RESP 16; TEMP 36.8; O2SAT 98
== END 2020-08-06 15:51 | disposition home or self-care (01) ==
PROVIDERS: Emergency Provider Emergency Medicine; PCP Emergency Medicine
DX: M46.1 Sacroiliitis, not elsewhere classified (principal); I10 Essential (primary) hypertension; K21.9 Gastro-esophageal reflux disease without esophagitis; E78.5 Hyperlipidemia, unspecified; J44.9 Chronic obstructive pulmonary disease, unspecified; I25.10 Atherosclerotic heart disease of native coronary artery without angina pectoris; E03.9 Hypothyroidism, unspecified; M81.0 Age-related osteoporosis without current pathological fracture; Z87.891 Personal history of nicotine dependence; Z88.2 Allergy status to sulfonamides; Z88.5 Allergy status to narcotic agent; Z79.899 Other long term (current) drug therapy
CPT/HCPCS: 72202; 81001; 87086; 96372; 99282

== ENCOUNTER 2020-08-08 12:48 | Emergency (ER) | payer MEDICARE, MEDICAID, SELFPAY ==
[2020-08-08 12:48] VITALS: BP 76/43; PULSE 62; RESP 26; TEMP 36.9; O2SAT 92; BMI 29.8
--- NOTE | 2020-08-08 12:55 | HMH.EDFALL ---
ED Disposition Clinical Impression: Acute abdomen, YAJAIRA (acute kidney injury), Hyperkalemia Altered mental status Qualifiers: Altered mental status type: delirium Qualified Code(s): R41.0 - Disorientation, unspecified Sepsis Qualifiers: Sepsis type: sepsis due to unspecified organism Sepsis acute organ dysfunction status: with acute organ dysfunction Severe sepsis acute organ dysfunction type: acute renal failure Acute renal failure type: unspecified Severe sepsis shock status: with septic shock Qualified Code(s): A41.9 - Sepsis, unspecified organism; R65.21 - Severe sepsis with septic shock; N17.9 - Acute kidney failure, unspecified Disposition: Xfer Short-Term Hosp Condition on Discharge: Critical Instructions: DI for Altered Mental Status Referrals: PCP,No [Primary Care Provider] - Forms: Transfer Record - ED - Critical Care Critical Care Time: Yes Attestation: On 08/08/20, the high probability of a clinically significant, sudden or life threatening deterioration of the following system(s) required my full and direct attention, intervention and personal management. The time I documented below is in addition to time spent performing reported procedures but includes the following listed in this critical care notation. Total Critical Care Time: 120 Vital system(s) involved:: Renal Failure, Shock (Septic) My critical care processes included: Assessment & monitoring of V/S, Initial and Re-exams, Data Review/Interpretation, Coordinating Care, Medication Orders and management, Documentation Medical Decision Making - Medical Records Medical records reviewed: Yes: I reviewed the patient's medical records. - Joshua Inquiry Pt receiving controlled substance: No Vital Signs: 08/08/20 12:48 08/08/20 14:14 08/08/20 15:05 Temperature 98.4 F Temperature Source Rectal Pulse Rate [Left Radial] 62 63 65 Respiratory Rate 26 H 18 Blood Pressure [Right Arm] 76/43 L 99/55 L 91/63 L Blood Pressure Mean [Right Arm] 54 69 72 Blood Pressure Source [Right Arm] Automatic Cuff Automatic Cuff Automatic Cuff Blood Pressure Position [Right Arm] Sitting Supine Supine 02 Sat by Pulse Oximetry 92 L 93 L 96 Oxygen Delivery Method Room Air Room Air Room Air Oxygen Flow Rate (LPM) 08/08/20 15:30 Temperature Temperature Source Pulse Rate [Left Radial] 68 Respiratory Rate 18 Blood Pressure [Right Arm] 92/60 L Blood Pressure Mean [Right Arm] 70 Blood Pressure Source [Right Arm] Automatic Cuff Blood Pressure Position [Right Arm] Supine 02 Sat by Pulse Oximetry 95 Oxygen Delivery Method Nasal Cannula Oxygen Flow Rate (LPM) 2 - Lab Data Lab results reviewed: Yes: I reviewed the patient's lab results. Lab Results 08/08/20 12:50: Urine Color Yellow, Urine Appearance Clear, Urine pH 6.5, Ur Specific [place] 1.010, Urine Protein Trace, Urine Glucose (UA) Negative, Urine Ketones Trace, Urine Blood Negative, Urine Nitrate Negative, Urine Bilirubin 1+ A, Urine Urobilinogen 0.2, Ur Leukocyte Esterase Trace, Urine RBC 3-5, Urine WBC 3-5, Ur Squamous Epith Cells Occasional 08/08/20 12:50: WBC 16.1 H, RBC 4.04 L, Hgb 12.0 L, Hct 38.6, MCV 95.6, MCH 29.8, MCHC 31.2 L, RDW 15.9, Plt Count 314, MPV 9.1, Neut % (Auto) 91.6 H, Lymph % (Auto) 6.3 L, [place] % (Auto) 1.3 L, Eos % (Auto) 0.4, Baso % (Auto) 0.5, Neut # (Auto) 14.8 H, Lymph # (Auto) 1.0, [place] # (Auto) 0.2, Eos # (Auto) 0.1, Baso # (Auto) 0.1, Total Counted 100, Neutrophils % (Manual) 86 H, Band Neutrophils % 4.0, Lymphocytes % (Manual) 7 L, Monocytes % (Manual) 3, Platelet Estimate Normal, Hypochromasia 2+ 08/08/20 12:50: Sodium 133 L, Potassium 6.7 H*, Chloride 100, Carbon Dioxide 12 L, Anion Gap 27.7 H, BUN 64 H, Creatinine 4.60 H, Estimated Creat Clear 17, Estimated GFR 10 L*, Est GFR ( Amer) 12 L*, Glucose 137 H, Calcium 9.2, Total Bilirubin 1.0, AST 109 H, ALT 63, Alkaline Phosphatase 81, Total Protein 7.1, Albumin 3.7, Globulin 3.4 H, Albumin/Globulin Ratio 1.1 08/08/20 12:50: Lacta
[2020-08-08 13:00] LABS: Microscopic, Urine URINE MICROSCOPIC (MICROSCOPIC)
[2020-08-08 13:03] LABS: Appearance,Urine CLEAR (Clear); Bilirubin,Urine 1+ (Negative); Blood, Urine Negative (Negative); Color,Urine YELLOW (Yellow); Glucose,Urine (UA) Negative (Negative); Ketones,Urine TRACE (Negative); Leukocyte Esterase,Urine TRACE (Negative); Nitrate,Urine Negative (Negative); PH,Urine 6.5 (5.0-8.5); Protein,Urine TRACE (Negative); Urobilinogen,Urine 0.2 EU/dl (0.2)
[2020-08-08 13:04] LABS: Basophils # 0.1 K/mm3 (0-0.2); Basophils % 0.5 % (0.1-2.0); Eosinophils # 0.1 K/mm3 (0.0-0.4); Eosinophils % 0.4 % (0.1-12.0); Hematocrit 38.6 % (37.0-47.0); Lymphocytes % 6.3 % (10-50); Mean Corpuscular HGB Conc 31.2 g/dL (31.8-35.4); Mean Corpuscular Hemoglobin 29.8 pg (27.0-31.2); Mean Corpuscular Volume 95.6 fl (81-99); Mean Platelet Volume 9.1 fl (7.4-10.4); Monocytes # 0.2 K/mm3 (0.1-1.0); Monocytes % 1.3 % (1.7-9.3); Neutrophils # 14.8 K/mm3 (1.8-7.8); Neutrophils % 91.6 % (37.0-80.0); Platelet Count 314 K/mm3 (142-424); Red Blood Count 4.04 M/mm3 (4.20-5.40); Red Cell Distribution Width 15.9 % (11.5-17.5); White Blood Count 16.1 K/mm3 (4.8-10.8)
[2020-08-08 13:06] LABS: Chloride 100 mmol/L (98-107); Sodium 133 mmol/L (136-145)
[2020-08-08 13:09] LABS: Alanine Aminotransferase 63 U/L (12-78); Albumin Level 3.7 g/dl (3.5-5.0); Albumin/Globulin Ratio 1.1 (1.1-1.8); Alkaline Phosphatase 81 U/L (38-126); Anion Gap 27.7 mEq/L (5-15); Aspartate Amino Transferase 109 U/L (14-36); Blood Urea Nitrogen 64 mg/dl (7-17); Calcium 9.2 mg/dl (8.4-10.2); Carbon Dioxide 12 mmol/L (22.0-30.0); Estimated Glomerular Filt Rate 10 ml/min (>60); GFR (African American) 12 ML/MIN (>60); Globulin 3.4 g/dL (1.3-3.2); Glucose 137 mg/dl (74-100); Total Protein,Serum 7.1 g/dl (6.3-8.2)
[2020-08-08 13:11] LABS: MANUAL DIFFERENTIAL MANUAL DIFFERENTIAL (MANUAL DIFF); Squamous Epithelial Cell,Urine Occasional #/hpf (0-5)
[2020-08-08 13:12] VITALS: BMI 29.8
[2020-08-08 13:18] LABS: Creatinine Clearance Estimated 17 mL/min (50-200)
[2020-08-08 13:19] LABS: Potassium 6.7 mmoL/L (3.5-5.1)
--- NOTE | 2020-08-08 13:20 | CT_ITS ---
PROCEDURE: CT HEAD/BRAIN WO CON CLINICAL INDICATION: ams a.m. fever COMPARISON: CT HDWO CT HEAD W/O CONTRAST from 06/04/2017 TECHNIQUE: Axial images obtained. All CT scans at the facility use one or more dose reduction, viz: automated exposure control, ma/kV adjustment per patient size (including targeted exams where dose is matched to indication, i.e. head), or iterative reconstruction technique. FINDINGS: No midline shift, mass effect, intracranial hemorrhage, hydrocephalus, or extra-axial fluid collection is evident. The calvarium has an unremarkable appearance. No mastoid effusion. No sinus air-fluid level. IMPRESSION: No acute intracranial finding Dictated by: Danika Parrish MD 08/08/2020 14:34 Danika Parrish MD in [facility] 08/08/2020 14:34
--- NOTE | 2020-08-08 13:21 | CT_ITS ---
PROCEDURE: CT ABDOMEN PELVIS WO CON CLINICAL INDICATION: distention Abdominal distention and fever COMPARISON: CT CT ABDOMEN PELVIS WO/W CON from 07/06/2020 TECHNIQUE: Axial images obtained with sagittal and coronal reformats. All CT scans at the facility use one or more dose reduction, viz: automated exposure control, ma/kV adjustment per patient size (including targeted exams where dose is matched to indication, i.e. head), or iterative reconstruction technique. FINDINGS: LOWER THORAX: There is redemonstration of a right posterior diaphragmatic defect with intra-abdominal fat extending through the defect which was present prior CT study. ABDOMEN & PELVIS: Patient has had prior cholecystectomy. The remaining solid abdominal organs have a normal appearance. There is a small hiatal hernia with fluid in the esophagus likely representing gastroesophageal reflux. The there is a generous amount of gas throughout the colon with border not line dilatation. There are several sigmoid diverticula by with no CT evidence of ruptured diverticulitis. There is a gradual transition in the junction of the descending and sigmoid colon in the area of several diverticula a. there is borderline wall thickening which could be secondary to incomplete filling of the sigmoid colon. Lack of intraluminal contrast makes evaluation less sensitive. A Almazan is present in the urinary bladder. Uterus and ovaries are not visible. A small amount of free fluid is present in the lower abdomen. There is no abdominal or pelvic adenopathy. There is extensive atherosclerotic calcification throughout the aorta which extends into The branch vessels. There is an old compression fracture of the T12 vertebral body. Bony structures are otherwise unremarkable IMPRESSION: Small amount of free intraperitoneal fluid. Gaseous borderline distention throughout the colon with gradual transition point in the left lower quadrant where there is diverticulosis and possible sigmoid colonic wall thickening. Differential considerations include diverticulitis versus an infectious cause. There is gastroesophageal reflex, small hiatal hernia, atherosclerosis and other chronic inflammatory findings as described below. Dictated by: Danika Parrish 08/08/2020 14:44 Danika Parrish in [facility] 08/08/2020 14:44
[2020-08-08 13:45] LABS: Lymphocytes % 7 % (10-50); Monocytes % 3 % (2-9); Neutrophils % 86 % (42-76); Total Cells Counted 100
[2020-08-08 13:46] LABS: Hypochromasia 2+; Platelet Estimate Normal
--- NOTE | 2020-08-08 13:53 | PC.NURSE ---
pt in ct
--- NOTE | 2020-08-08 14:03 | ECG_ITS ---
APPROVED REPORT Exam: Resting ECG HR:89 bpm ECG Measurements Heart Rate 89 AXES TX 194 P 63 QRSd 74 QRS 20 QT 400 T 44 QTc 486 Conclusion Sinus rhythm Low voltage QRS Late r wave progression - unchanged from prior Abnormal ECG Electronically signed by : Giovanni Butler, 08/08/2020 17:37:48
[2020-08-08 14:14] VITALS: BP 99/55; PULSE 63; RESP 18; O2SAT 93
[2020-08-08 14:45] LABS: Lactic Acid 8.6 mmol/L (0.7-2.1)
[2020-08-08 15:05] VITALS: BP 91/63; PULSE 65; O2SAT 96
[2020-08-08 15:30] VITALS: BP 92/60; PULSE 68; RESP 18; O2SAT 95
--- NOTE | 2020-08-08 15:45 | PC.NURSE ---
dr moser paged
--- NOTE | 2020-08-08 16:00 | PC.NURSE ---
Spoke with Leoncio in pharmacy who states to give pt once dose of vanc and once creatinine is rechecked pharmacy will recalculate another dose for pt due to her high creat level.
--- NOTE | 2020-08-08 16:41 | PC.NURSE ---
dr Fahad Mcdowell from talking to Dr Chicas about transfer to [facility]
[2020-08-08 17:35] LABS: Reflex Lactic Add Lactic Reflex
[2020-08-08 17:36] LABS: Lactic Acid Follow Up (RFLX 1) 2.8 mmol/L (0.7-2.1)
[2020-08-08 18:06] LABS: Chloride 111 mmol/L (98-107); Potassium 5.8 mmoL/L (3.5-5.1); Sodium 135 mmol/L (136-145)
[2020-08-08 18:09] LABS: Anion Gap 13.8 mEq/L (5-15); Blood Urea Nitrogen 67 mg/dl (7-17); Carbon Dioxide 16 mmol/L (22.0-30.0); Creatinine Clearance Estimated 23 mL/min (50-200); Estimated Glomerular Filt Rate 14 ml/min (>60); GFR (African American) 17 ML/MIN (>60); Glucose 67 mg/dl (74-100)
[2020-08-08 18:30] VITALS: BP 97/48; PULSE 79; RESP 20; TEMP 36.9; O2SAT 96
[2020-08-08 18:42] LABS: Calcium 7.5 mg/dl (8.4-10.2)
== END 2020-08-08 18:32 | disposition short-term general hospital (02) ==
PROVIDERS: Emergency Provider Family Medicine
DX: N17.9 Acute kidney failure, unspecified (principal); E87.5 Hyperkalemia; R65.21 Severe sepsis with septic shock; F33.1 Major depressive disorder, recurrent, moderate; Z20.822 Contact with and (suspected) exposure to COVID-19; I25.10 Atherosclerotic heart disease of native coronary artery without angina pectoris; K21.9 Gastro-esophageal reflux disease without esophagitis; E78.5 Hyperlipidemia, unspecified; J44.9 Chronic obstructive pulmonary disease, unspecified; I10 Essential (primary) hypertension; E03.9 Hypothyroidism, unspecified; Z87.891 Personal history of nicotine dependence; Z79.899 Other long term (current) drug therapy
CPT/HCPCS: 96367; 36415; 70450; 74176; 80048; 80053; 81001; 83605; 85007; 85025; 87040; 93005; 96365; 96375; 99285; J3370; U0003

== ENCOUNTER 2020-09-06 19:58 | Emergency (ER) | payer MEDICARE, MEDICAID, SELFPAY ==
[2020-09-06 20:00] VITALS: BP 178/103; PULSE 91; RESP 16; TEMP 36.6; O2SAT 99; BMI 30.9
[2020-09-06 20:24] LABS: Microscopic, Urine URINE MICROSCOPIC (MICROSCOPIC)
[2020-09-06 20:28] LABS: Appearance,Urine CLEAR (Clear); Bilirubin,Urine Negative (Negative); Blood, Urine Negative (Negative); Color,Urine YELLOW (Yellow); Glucose,Urine (UA) Negative (Negative); Ketones,Urine Negative (Negative); Leukocyte Esterase,Urine Negative (Negative); Nitrate,Urine Negative (Negative); Protein,Urine Negative (Negative); Urobilinogen,Urine 0.2 EU/dl (0.2)
--- NOTE | 2020-09-06 20:44 | HMH.EDUROGF ---
ED Disposition Clinical Impression: Acute urinary retention, Renal insufficiency, Colostomy in place Urinary tract infection Qualifiers: Urinary tract infection type: site unspecified Hematuria presence: without hematuria Qualified Code(s): N39.0 - Urinary tract infection, site not specified Anemia Qualifiers: Anemia type: unspecified type Qualified Code(s): D64.9 - Anemia, unspecified Disposition: Home, Self-Care Condition on Discharge: Good Instructions: How to Care for Your Almazan Catheter -- Female Additional Instructions: fluids and resume prev care and follow up Referrals: Lazarus North MD [Primary Care Provider] - - Critical Care Critical Care Time: No Attestation: On 09/06/20, the high probability of a clinically significant, sudden or life threatening deterioration of the following system(s) required my full and direct attention, intervention and personal management. The time I documented below is in addition to time spent performing reported procedures but includes the following listed in this critical care notation. Medical Decision Making - Medical Records Medical records reviewed: Yes: I reviewed the patient's medical records. - Joshua Inquiry Pt receiving controlled substance: No Vital Signs: 09/06/20 20:00 Temperature 97.8 F Temperature Source Oral Pulse Rate [Right] 91 H Respiratory Rate 16 Blood Pressure [Right Arm] 178/103 H Blood Pressure Mean [Right Arm] 128 02 Sat by Pulse Oximetry 99 Oxygen Delivery Method Room Air - Lab Data Lab results reviewed: Yes: I reviewed the patient's lab results. Lab Results 09/06/20 20:00: Urine Color Yellow, Urine Appearance Clear, Urine pH 6.0, Ur Specific [place] 1.020, Urine Protein Negative, Urine Glucose (UA) Negative, Urine Ketones Negative, Urine Blood Negative, Urine Nitrate Negative, Urine Bilirubin Negative, Urine Urobilinogen 0.2, Ur Leukocyte Esterase Negative, Urine RBC Occasional, Urine WBC 10-20, Ur Squamous Epith Cells 10-20, Urine Bacteria 3+ 09/06/20 20:57: WBC 13.0 H, RBC 3.15 L, Hgb 8.6 L, Hct 26.4 L, MCV 83.6, MCH 27.2, MCHC 32.5, RDW 16.1, Plt Count 494 H, MPV 7.8, Neut % (Auto) 78.9, Lymph % (Auto) 10.2, [place] % (Auto) 8.0, Eos % (Auto) 2.4, Baso % (Auto) 0.5, Neut # (Auto) 10.3 H, Lymph # (Auto) 1.3, [place] # (Auto) 1.1 H, Eos # (Auto) 0.3, Baso # (Auto) 0.1, ESR > 140 H 09/06/20 20:57: Sodium 125 L, Potassium 4.0, Chloride 90 L, Carbon Dioxide 22, Anion Gap 17.0 H, BUN 29 H, Creatinine 1.10 H, Estimated Creat Clear 66, Estimated GFR 50 L, Est GFR ( Amer) 61, Glucose 103 H, Calcium 8.5, Total Bilirubin 0.5, AST 38 H, ALT 41, Alkaline Phosphatase 271 H, C-Reactive Protein 45.8 H, Total Protein 8.3 H, Albumin 3.7, Globulin 4.6 H, Albumin/Globulin Ratio 0.8 L, Amylase 79, Procalcitonin 0.100 09/06/20 20:57: Lipase 139 09/06/20 22:22: Lactate 1.6 Result diagrams: 09/06/20 20:57 09/06/20 20:57 Orders (Tests/Meds): ED MEDICATIONS Generic Name Dose Route Start Last Admin Trade Name Freq PRN Reason Stop Dose Admin Sodium Chloride 8 ml 09/06/20 20:48 Sodium Chloride 0.9% 10ml Vial IV 10/06/20 20:47 NEEDED PRN dilute pepcid Discontinued Medications Generic Name Dose Route Start Last Admin Trade Name Freq PRN Reason Stop Dose Admin Famotidine 20 mg 09/06/20 20:48 09/06/20 20:51 Famotidine 20mg/2ml Vial IV 09/06/20 20:49 20 mg ONCE ONE Administration Sodium Chloride 1,000 mls @ 999 mls/hr 09/06/20 21:00 09/06/20 20:50 Sod Chlor 0.9% 1000ml Bag IV 09/06/20 22:00 999 mls/hr .Q1H1M JOMAR Administration Iopamidol 75 ml 09/06/20 22:14 09/06/20 22:15 Iopamidol-370 (76%);100ml Bottle IV 09/06/20 22:15 75 ml ONCE ONE Administration Metoclopramide HCl 10 mg 09/06/20 20:48 09/06/20 20:51 Metoclopramide Hcl 10mg/2ml Vial IVP 09/06/20 20:49 10 mg ONCE ONE Administration Sodium Chloride 10 ml 09/06/20 22:14 09/06/20 22:14 Sodium Chloride 0.9% 10ml Syr (Rad
--- NOTE | 2020-09-06 20:46 | CT_ITS ---
PROCEDURE: CT ABDOMEN PELVIS W CON CLINICAL INDICATION: abd pain Abdominal pain, unable to urinate COMPARISON: CT CT ABDOMEN PELVIS WO CON from 08/08/2020 TECHNIQUE: IV Contrast: 75ML Isovue 370 Oral Contrast None Axial images obtained with sagittal and coronal reformats. All CT scans at the facility use one or more dose reduction, viz: automated exposure control, ma/kV adjustment per patient size (including targeted exams where dose is matched to indication, i.e. head), or iterative reconstruction technique. FINDINGS: LOWER THORAX: Atelectatic or fibrotic changes are present in the left lower lobe. Coronary artery calcifications. ABDOMEN & PELVIS: There has been a prior cholecystectomy. Biliary dilatation is noted. No focal liver lesion apparent. The spleen and adrenal glands are unremarkable. 3.9 cm fluid collection present in the left upper quadrant medial to the spleen and along the tail the pancreas. There has been an interval colectomy. Fluid is present in the left pericolic gutter which appears somewhat loculated measuring 6 x 3 cm. There is a rim enhancing 2.7 x 1 cm collection in the right pericolic gutter. Right lower quadrant ileostomy is noted. Postsurgical changes of the abdominal wall present with dehiscence of the lower abdominal wall centrally there is thickening of the presacral fat with a 13 mm collection in the left perirectal region. Almazan catheter is in place. Chronic wedge compression changes present involving T12. IMPRESSION: 1. Interval colectomy with fluid collections in the pericolic gutters as described above which could be sterile or infected. 3.9 cm loculated collection in the left upper quadrant medial to the spleen which may also be postsurgical. 2. Stranding of the presacral fat and perirectal region with a small fluid collection in the left anterior perirectal area at 13 mm. Dictated by: Tyron Huynh MD 09/07/2020 09:21 Tyron Huynh MD in [place] 09/07/2020 09:21
[2020-09-06 21:00] VITALS: BP 121/80; PULSE 88; RESP 16; O2SAT 97
[2020-09-06 21:26] LABS: Basophils # 0.1 K/mm3 (0-0.2); Basophils % 0.5 % (0.1-2.0); Eosinophils # 0.3 K/mm3 (0.0-0.4); Eosinophils % 2.4 % (0.1-12.0); Hematocrit 26.4 % (37.0-47.0); Hemoglobin 8.6 g/dL (12.2-16.2); Lymphocytes # 1.3 K/mm3 (0.7-4.5); Lymphocytes % 10.2 % (10-50); Mean Corpuscular HGB Conc 32.5 g/dL (31.8-35.4); Mean Corpuscular Hemoglobin 27.2 pg (27.0-31.2); Mean Corpuscular Volume 83.6 fl (81-99); Mean Platelet Volume 7.8 fl (7.4-10.4); Monocytes # 1.1 K/mm3 (0.1-1.0); Neutrophils # 10.3 K/mm3 (1.8-7.8); Neutrophils % 78.9 % (37.0-80.0); Platelet Count 494 K/mm3 (142-424); Red Blood Count 3.15 M/mm3 (4.20-5.40); Red Cell Distribution Width 16.1 % (11.5-17.5)
[2020-09-06 21:26] LABS: Bacteria,Urine 3+ /lpf; RBC,Urine Occasional #/hpf (0-3)
[2020-09-06 21:43] LABS: Alanine Aminotransferase 41 U/L (12-78); Albumin Level 3.7 g/dl (3.5-5.0); Albumin/Globulin Ratio 0.8 (1.1-1.8); Alkaline Phosphatase 271 U/L (38-126); Amylase 79 U/L (30-110); Aspartate Amino Transferase 38 U/L (14-36); Bilirubin,Total 0.5 mg/dl (0.2-1.3); Blood Urea Nitrogen 29 mg/dl (7-17); Calcium 8.5 mg/dl (8.4-10.2); Carbon Dioxide 22 mmol/L (22.0-30.0); Chloride 90 mmol/L (98-107); Creatinine Clearance Estimated 66 mL/min (50-200); Estimated Glomerular Filt Rate 50 ml/min (>60); GFR (African American) 61 ML/MIN (>60); Globulin 4.6 g/dL (1.3-3.2); Glucose 103 mg/dl (74-100); Sodium 125 mmol/L (136-145); Total Protein,Serum 8.3 g/dl (6.3-8.2)
[2020-09-06 21:48] LABS: C-Reactive Protein 45.8 mg/L (0-4)
[2020-09-06 21:49] LABS: Erythrocyte Sedimentation Rate > 140 mm/hr (0-30)
[2020-09-06 21:58] LABS: Lipase 139 U/L (23-300)
[2020-09-06 22:00] VITALS: BP 108/60; PULSE 81; RESP 17; O2SAT 93
[2020-09-06 22:52] LABS: Lactic Acid 1.6 mmol/L (0.7-2.1)
[2020-09-06 23:00] VITALS: BP 115/63; PULSE 85; RESP 16; O2SAT 95
[2020-09-07] VITALS: BP 105/70; PULSE 88; RESP 16; O2SAT 94
[2020-09-07 00:44] VITALS: BP 108/73; PULSE 94; RESP 16; TEMP 36.5; O2SAT 98
== END 2020-09-07 00:46 | disposition home or self-care (01) ==
PROVIDERS: Emergency Provider Emergency Medicine; PCP Emergency Medicine
DX: R33.8 Other retention of urine (principal); Z93.3 Colostomy status; N28.9 Disorder of kidney and ureter, unspecified; N30.00 Acute cystitis without hematuria; I10 Essential (primary) hypertension; J44.9 Chronic obstructive pulmonary disease, unspecified; E78.5 Hyperlipidemia, unspecified; D64.9 Anemia, unspecified; I25.10 Atherosclerotic heart disease of native coronary artery without angina pectoris; K21.9 Gastro-esophageal reflux disease without esophagitis; E03.9 Hypothyroidism, unspecified; Z87.891 Personal history of nicotine dependence; Z79.899 Other long term (current) drug therapy; Z88.2 Allergy status to sulfonamides; Z88.5 Allergy status to narcotic agent
CPT/HCPCS: 36415; 74177; 80053; 81001; 82150; 83605; 83690; 84145; 85025; 85651; 86140; 87040; 87086; 96365; 96375; 99284; Q9967

== ENCOUNTER → 2020-09-21 12:13 | Outpatient (CLI) | payer MEDICARE, MEDICAID, SELFPAY | PROVIDERS: PCP Nurse Practitioner Family; Visit Provider Nurse Practitioner Family | DX: R41.82 Altered mental status, unspecified (principal); R42 Dizziness and giddiness | CPT/HCPCS: 87086; 93225; 93226 ==

== ENCOUNTER → 2020-10-07 13:49 | Outpatient (CLI) | payer MEDICARE, MEDICAID, SELFPAY | PROVIDERS: Visit Provider Nurse Practitioner Family | DX: N39.0 Urinary tract infection, site not specified (principal) | CPT/HCPCS: 87086; 87088; 87186 ==

== ENCOUNTER 2020-10-18 11:57 | Outpatient (RCR) | payer MEDICARE, MEDICAID, SELFPAY ==
--- NOTE | 2020-10-18 12:22 | HMH.PTOPEV ---
PT Outpatient Evaluation Rehab PT Outpatient Evaluation Start: 10/18/20 12:02 Freq: Status: Active Protocol: Document 10/18/20 12:14 JIE (Rec: 10/18/20 12:22 JIE [id number]) Electronically Signed By Ayaz Reese, PT 10/18/20 12:14 Outpatient Therapy Subjective History Subjective History Pt reports h/o chronic LBP with exacerbation over the last ~3 months. Pt reports R>L sided LBP with B LE experiencing radicular s/s ( weakness, N&T, and pain). Pt also reports reports abdominal sx. in Jul, 'they removed my colon, I still have a hole , and I've got this bag now'. Chief Complaint Pain,Stiff,Paresthesia, Weakness Symptom Type Ache,Sharp,Dull,Stabbing, Burning,Numbness,Tingling Symptoms Relieved By Rest/Positioning,Heat, Prescription Meds Symptoms Aggravated By Standing,Physical Activity, Walking Prior Functional Limitations Standing,Walking,Bending/ Stooping Current Functional Limitations Lifting,Housework,Standing, Walking Symptom Description Constant but Variable Level of pain today (0-10) 8 Pain scale - at its best (0-10) 7 Pain scale - at its worst (0-10) 9 Lumbopelvic Eval Posture Thoracic Spine Posture Standing Position Flattened Lumbar Spine Posture Standing Position Flattened Assistive device Assistive Devices None / NA Gait Observation General Gait Pattern Observation Antalgic Gait Palapation tenderness bilateral thoracic spinal tenderness Yes: 2/4 lumbar spinal tenderness Yes: 3/4 paraspinal tenderness Yes: 3/4 buttock tenderness Yes: 3/4 Lumbar/Sacral Palpation Findings Tenderness,Muscle Guarding Accessory Movement L-spine Vertebrae Accessory Movements [employer] [place] that Elicit Symptoms L2 bilateral L3 bilateral L4 bilateral L5 bilateral S1 bilateral Range of Motion Lumbar Spine Active Flexion Range of 0-40 Motion (degrees) Lumbar Spine Active Extension Range of 0 Motion (degrees) Left Lumbar Spine Lateral Flexion Active 0-15 Range of Motion (degrees) Right Lumbar Spine Lateral Flexion 0-15 Active Range of Motion (degrees) Lumbar Spine ROM Limitations Pain Manual Muscle Test Bilateral
== END 2020-10-18 11:59 | disposition home or self-care (01) ==
LOC: PT 11:57
PROVIDERS: PCP Nurse Practitioner Family; Visit Provider Nurse Practitioner Family
DX: M54.5 Low back pain (principal)
CPT/HCPCS: 97163

== ENCOUNTER → 2020-10-28 07:59 | Outpatient (CLI) | payer MEDICARE, MEDICAID, SELFPAY | PROVIDERS: Visit Provider Urology | DX: Z20.822 Contact with and (suspected) exposure to COVID-19 (principal) | CPT/HCPCS: U0003 ==

== ENCOUNTER → 2021-03-06 18:21 | Outpatient (CLI) | payer MEDICARE, MEDICAID, SELFPAY | PROVIDERS: Visit Provider Emergency Medicine | DX: R82.90 Unspecified abnormal findings in urine (principal) | CPT/HCPCS: 87086; 87088; 87186 ==

== ENCOUNTER → 2021-04-04 11:24 | Outpatient (CLI) | payer MEDICARE, MEDICAID, SELFPAY ==
[2021-04-04 23:39] LABS: Blood Urea Nitrogen 16 mg/dl (7-17); Calcium 8.6 mg/dl (8.4-10.2); Carbon Dioxide 19 mmol/L (22.0-30.0); Chloride 109 mmol/L (98-107); Estimated Glomerular Filt Rate 63 ml/min (>60); GFR (African American) 77 ML/MIN (>60); Glucose 92 mg/dl (74-100); Sodium 139 mmol/L (136-145)
== END ==
PROVIDERS: Visit Provider Internal Medicine
DX: R33.9 Retention of urine, unspecified (principal)
CPT/HCPCS: 36415; 80048

== ENCOUNTER 2021-06-10 11:33 | Emergency (ER) | payer MEDICARE, MEDICAID, SELFPAY ==
[2021-06-10 11:35] VITALS: BP 132/90; PULSE 92; RESP 18; TEMP 36.9; O2SAT 96; BMI 27.4
--- NOTE | 2021-06-10 11:53 | HMH.EDGENADL ---
ED Disposition Clinical Impression: Ileus, unspecified Disposition: Home, Self-Care Condition on Discharge: Fair Instructions: Ileus Additional Instructions: Return to the emergency department if symptoms do not begin to resolve, or if they worsen after 2-3 days. Do not take the MiraLAX for more than 5 days, and is very important for you to need to drink large amounts of water as this medication can also dehydrate you especially with an ostomy. If your symptoms resolve stop taking the MiraLAX. Avoid eating large meals. Prescriptions: polyethylene glycoL 3350 [Miralax 17gm Packet] 17 gm PO DAILYP PRN #5 packet PRN Reason: Constipation Transmission Status: Received by [facility] polyethylene glycoL 3350 [Miralax 17gm Packet] 17 gm PO DAILY #30 packet Ondansetron [Zofran 4mg ODT] 4 mg PO BIDP PRN #10 tab PRN Reason: Nausea Transmission Status: Received by [facility] Referrals: Lazarus North MD [Primary Care Provider] - - Critical Care Critical Care Time: No Attestation: On 06/10/21, the high probability of a clinically significant, sudden or life threatening deterioration of the following system(s) required my full and direct attention, intervention and personal management. The time I documented below is in addition to time spent performing reported procedures but includes the following listed in this critical care notation. Medical Decision Making - Medical Records Medical records reviewed: Yes: I reviewed the patient's medical records. - Joshua Inquiry Pt receiving controlled substance: No Vital Signs: 06/10/21 11:35 06/10/21 12:47 06/10/21 13:30 Temperature 98.4 F Temperature Source Oral Pulse Rate 80 72 Pulse Rate [Right Radial] 92 H Respiratory Rate 18 18 18 Blood Pressure 130/90 125/86 Blood Pressure [Right Arm] 132/90 Blood Pressure Mean 107 Blood Pressure Mean [Right Arm] 104 Blood Pressure Source [Right Arm] Automatic Cuff Blood Pressure Position [Right Arm] Sitting 02 Sat by Pulse Oximetry 96 98 98 Oxygen Delivery Method Room Air 06/10/21 15:00 Temperature 98.4 F Temperature Source Pulse Rate 74 Pulse Rate [Right Radial] Respiratory Rate 16 Blood Pressure 131/89 Blood Pressure [Right Arm] Blood Pressure Mean Blood Pressure Mean [Right Arm] Blood Pressure Source [Right Arm] Blood Pressure Position [Right Arm] 02 Sat by Pulse Oximetry Oxygen Delivery Method - Lab Data Lab Results 06/10/21 12:00: WBC 11.2 H, RBC 4.29, Hgb 12.9, Hct 38.5, MCV 89.7, MCH 29.9, MCHC 33.4, RDW 14.7, Plt Count 237, MPV 8.6, Neut % (Auto) 89.8 H, Lymph % (Auto) 4.4 L, [place] % (Auto) 3.3, Eos % (Auto) 2.4, Baso % (Auto) 0.2, Neut # (Auto) 10.1 H, Lymph # (Auto) 0.5 L, [place] # (Auto) 0.4, Eos # (Auto) 0.3, Baso # (Auto) 0.0, Total Counted 100, Neutrophils % (Manual) 93 H, Lymphocytes % (Manual) 4 L, Monocytes % (Manual) 3, Platelet Estimate Normal, RBC Morphology Normal 06/10/21 12:00: Sodium 136, Potassium 4.0, Chloride 105, Carbon Dioxide 21 L, Anion Gap 14.0, BUN 16, Creatinine 1.00, Estimated Creat Clear 66, Estimated GFR 56 L, Est GFR ( Amer) 68, Glucose 105 H, Calcium 8.4, Total Bilirubin 0.4, AST 144 H, ALT 167 H, Alkaline Phosphatase 139 H, Total Protein 7.2, Albumin 3.9, Globulin 3.3 H, Albumin/Globulin Ratio 1.2 06/10/21 12:11: Lactate 0.9 Result diagrams: 06/10/21 12:00 06/10/21 12:00 Orders (Tests/Meds): ED MEDICATIONS Discontinued Medications Generic Name Dose Route Start Last Admin Trade Name Freq PRN Reason Stop Dose Admin Acetaminophen 500 mg 06/10/21 12:03 06/10/21 12:18 Acetaminophen 500mg Tab PO 06/10/21 12:04 500 mg ONCE ONE Administration Iopamidol 75 ml 06/10/21 13:06 06/10/21 13:07 Iopamidol-370 (76%);100ml Bottle IV 06/10/21 13:07 75 ml ONCE ONE Administration Ondansetron HCl 4 mg 06/10/21 12:03 06/10/21 12:18 Ondansetron 4mg/2ml Vial IV 06/10/21 12:04
--- NOTE | 2021-06-10 12:02 | CT_ITS ---
PROCEDURE INFORMATION: Exam: CT Abdomen And Pelvis With Contrast Exam date and time: 06/10/2021 12:02 PM Age: 65 years old Clinical indication: Abdominal pain; Generalized; Additional info: Abdominal pain// stoma placed in jul, TECHNIQUE: Imaging protocol: Computed tomography of the abdomen and pelvis with contrast. Radiation optimization: All CT scans at this facility use at least one of these dose optimization techniques: automated exposure control; mA and/or kV adjustment per patient size (includes targeted exams where dose is matched to clinical indication); or iterative reconstruction. Contrast material: ISOVUE; Contrast volume: 75 ml; Contrast route: IV; COMPARISON: CT ABDOMEN PELVIS W CON 09/06/2020 9:58 PM FINDINGS: Heart: Pericardial effusion is present. Liver: There is a diffuse decrease in hepatic parenchymal density, consistent with mild fatty infiltration. Gallbladder and bile ducts: Common bile duct measures up to 1.8 cm. There has been a cholecystectomy. Pancreas: Normal. No ductal dilation. Spleen: Normal. No splenomegaly. Adrenal glands: Mild thickening of the left adrenal gland. The right adrenal gland is normal. Kidneys and ureters: Normal. No hydronephrosis. Stomach and bowel: Right lower quadrant ostomy is present with postoperative changes of the bowel. Several fluid-filled bowel loops present consistent with mild ileus. Appendix: No evidence of appendicitis. Intraperitoneal space: There is a small amount of free intraperitoneal fluid present. Vasculature: The vasculature demonstrates diffuse mild atherosclerotic calcification. Lymph nodes: No mesenteric or retroperitoneal lymphadenopathy. Urinary bladder: Unremarkable as visualized. Reproductive: There has been a hysterectomy. Bones/joints: Stable compression deformity of T12. Soft tissues: Soft tissue defect along the anterior abdominal wall. IMPRESSION: 1. There is a diffuse decrease in hepatic parenchymal density, consistent with mild fatty infiltration. 2. Several fluid-filled bowel loops present consistent with mild ileus. 3. No mesenteric or retroperitoneal lymphadenopathy.
[2021-06-10 12:12] LABS: Basophils % 0.2 % (0.1-2.0); Eosinophils # 0.3 K/mm3 (0.0-0.4); Eosinophils % 2.4 % (0.1-12.0); Hematocrit 38.5 % (37.0-47.0); Hemoglobin 12.9 g/dL (12.2-16.2); Lymphocytes # 0.5 K/mm3 (0.7-4.5); Lymphocytes % 4.4 % (10-50); Mean Corpuscular HGB Conc 33.4 g/dL (31.8-35.4); Mean Corpuscular Hemoglobin 29.9 pg (27.0-31.2); Mean Corpuscular Volume 89.7 fl (81-99); Mean Platelet Volume 8.6 fl (7.4-10.4); Monocytes # 0.4 K/mm3 (0.1-1.0); Monocytes % 3.3 % (1.7-9.3); Neutrophils # 10.1 K/mm3 (1.8-7.8); Neutrophils % 89.8 % (37.0-80.0); Platelet Count 237 K/mm3 (142-424); Red Blood Count 4.29 M/mm3 (4.20-5.40); Red Cell Distribution Width 14.7 % (11.5-17.5); White Blood Count 11.2 K/mm3 (4.8-10.8)
[2021-06-10 12:20] LABS: Chloride 105 mmol/L (98-107); Sodium 136 mmol/L (136-145)
[2021-06-10 12:21] LABS: MANUAL DIFFERENTIAL MANUAL DIFFERENTIAL (MANUAL DIFF)
[2021-06-10 12:23] LABS: Alanine Aminotransferase 167 U/L (12-78); Alkaline Phosphatase 139 U/L (38-126); Aspartate Amino Transferase 144 U/L (14-36); Bilirubin,Total 0.4 mg/dl (0.2-1.3); Blood Urea Nitrogen 16 mg/dl (7-17); Carbon Dioxide 21 mmol/L (22.0-30.0); Creatinine Clearance Estimated 66 mL/min (50-200); Estimated Glomerular Filt Rate 56 ml/min (>60); GFR (African American) 68 ML/MIN (>60)
[2021-06-10 12:24] LABS: Albumin Level 3.9 g/dl (3.5-5.0); Albumin/Globulin Ratio 1.2 (1.1-1.8); Calcium 8.4 mg/dl (8.4-10.2); Globulin 3.3 g/dL (1.3-3.2); Glucose 105 mg/dl (74-100); Total Protein,Serum 7.2 g/dl (6.3-8.2)
[2021-06-10 12:30] LABS: Lactic Acid 0.9 mmol/L (0.7-2.1)
[2021-06-10 12:47] VITALS: BP 130/90; PULSE 80; RESP 18; O2SAT 98
[2021-06-10 12:56] LABS: Lymphocytes % 4 % (10-50); Monocytes % 3 % (2-9); Neutrophils % 93 % (42-76); Platelet Estimate Normal; RBC Morphology Normal; Total Cells Counted 100
[2021-06-10 13:30] VITALS: BP 125/86; PULSE 72; RESP 18; O2SAT 98
[2021-06-10 15:00] VITALS: BP 131/89; PULSE 74; RESP 16; TEMP 36.9; O2SAT 97
== END 2021-06-10 15:00 | disposition home or self-care (01) ==
PROVIDERS: Emergency Provider Emergency Medicine; PCP Emergency Medicine
DX: K56.7 Ileus, unspecified (principal); Z93.3 Colostomy status; I25.10 Atherosclerotic heart disease of native coronary artery without angina pectoris; K21.9 Gastro-esophageal reflux disease without esophagitis; E78.5 Hyperlipidemia, unspecified; I10 Essential (primary) hypertension; Z79.899 Other long term (current) drug therapy
CPT/HCPCS: 74177; 80053; 83605; 85007; 85025; 96374; 99282; J2405; Q9967

== ENCOUNTER → 2021-06-14 14:45 | Outpatient (CLI) | payer MEDICARE, MEDICAID, SELFPAY ==
[2021-06-14 16:18] LABS: Anion Gap 11.4 mEq/L (5-15); Blood Urea Nitrogen 10 mg/dl (7-17); Carbon Dioxide 26 mmol/L (22.0-30.0); Chloride 101 mmol/L (98-107); Estimated Glomerular Filt Rate 56 ml/min (>60); GFR (African American) 68 ML/MIN (>60); Glucose 84 mg/dl (74-100); Potassium 3.4 mmoL/L (3.5-5.1); Sodium 135 mmol/L (136-145)
== END ==
PROVIDERS: Visit Provider Internal Medicine Cardiovascular Disease
DX: E78.2 Mixed hyperlipidemia (principal); G47.33 Obstructive sleep apnea (adult) (pediatric); I11.9 Hypertensive heart disease without heart failure; I25.10 Atherosclerotic heart disease of native coronary artery without angina pectoris; J42 Unspecified chronic bronchitis; R06.02 Shortness of breath; R60.9 Edema, unspecified; Z72.0 Tobacco use; Z99.89 Dependence on other enabling machines and devices
CPT/HCPCS: 36415; 80048

== ENCOUNTER → 2021-06-21 14:29 | Outpatient (CLI) | payer MEDICARE, MEDICAID, SELFPAY ==
[2021-06-21 16:03] LABS: Anion Gap 13.2 mEq/L (5-15); Blood Urea Nitrogen 11 mg/dl (7-17); Calcium 8.9 mg/dl (8.4-10.2); Carbon Dioxide 26 mmol/L (22.0-30.0); Chloride 102 mmol/L (98-107); Estimated Glomerular Filt Rate 56 ml/min (>60); GFR (African American) 68 ML/MIN (>60); Glucose 111 mg/dl (74-100); Potassium 3.2 mmoL/L (3.5-5.1); Sodium 138 mmol/L (136-145)
== END ==
PROVIDERS: Visit Provider Physician Assistant
DX: E78.5 Hyperlipidemia, unspecified (principal); G47.33 Obstructive sleep apnea (adult) (pediatric); I11.9 Hypertensive heart disease without heart failure; I25.10 Atherosclerotic heart disease of native coronary artery without angina pectoris; J44.9 Chronic obstructive pulmonary disease, unspecified; R06.02 Shortness of breath; R60.9 Edema, unspecified; Z72.0 Tobacco use; Z99.89 Dependence on other enabling machines and devices
CPT/HCPCS: 80048

== ENCOUNTER → 2021-06-30 10:58 | Outpatient (CLI) | payer MEDICARE, MEDICAID, SELFPAY ==
[2021-06-30 11:41] LABS: Chloride 101 mmol/L (98-107); Potassium 3.6 mmoL/L (3.5-5.1); Sodium 135 mmol/L (136-145)
[2021-06-30 11:44] LABS: Anion Gap 13.6 mEq/L (5-15); Blood Urea Nitrogen 17 mg/dl (7-17); Calcium 8.3 mg/dl (8.4-10.2); Carbon Dioxide 24 mmol/L (22.0-30.0); Estimated Glomerular Filt Rate 56 ml/min (>60); GFR (African American) 68 ML/MIN (>60); Glucose 103 mg/dl (74-100)
== END ==
PROVIDERS: PCP Emergency Medicine; Visit Provider Urology
DX: E87.6 Hypokalemia (principal)
CPT/HCPCS: 36415; 80048

== ENCOUNTER → 2021-07-13 16:37 | Outpatient (CLI) | payer MEDICARE, MEDICAID, SELFPAY | PROVIDERS: Visit Provider Nurse Practitioner Family | DX: R82.90 Unspecified abnormal findings in urine (principal); B96.1 Klebsiella pneumoniae [K. pneumoniae] as the cause of diseases classified elsewhere | CPT/HCPCS: 87086; 87088; 87186 ==

== ENCOUNTER → 2021-08-01 16:00 | Outpatient (CLI) | payer MEDICARE, MEDICAID, SELFPAY ==
[2021-08-01 14:20] LABS: Microscopic, Urine URINE MICROSCOPIC (MICROSCOPIC)
[2021-08-01 14:26] LABS: Appearance,Urine CLEAR (Clear); Bilirubin,Urine Negative (Negative); Blood, Urine Negative (Negative); Color,Urine YELLOW (Yellow); Glucose,Urine (UA) Negative (Negative); Ketones,Urine Negative (Negative); Leukocyte Esterase,Urine TRACE (Negative); Nitrate,Urine Negative (Negative); Protein,Urine Negative (Negative); Urobilinogen,Urine 0.2 EU/dl (0.2)
[2021-08-01 14:42] LABS: Bacteria,Urine 1+ /lpf
== END ==
PROVIDERS: Visit Provider Nurse Practitioner Family
DX: N39.0 Urinary tract infection, site not specified (principal)
CPT/HCPCS: 81001

== ENCOUNTER → 2021-11-16 12:42 | Outpatient (CLI) | payer MEDICARE, MEDICAID, SELFPAY | PROVIDERS: PCP Family Medicine; Visit Provider Family Medicine | DX: R41.82 Altered mental status, unspecified (principal); B96.20 Unspecified Escherichia coli [E. coli] as the cause of diseases classified elsewhere | CPT/HCPCS: 87086; 87186 ==

== ENCOUNTER → 2021-11-30 13:55 | Outpatient (CLI) | payer MEDICARE, MEDICAID, SELFPAY | PROVIDERS: PCP Family Medicine; Visit Provider Family Medicine | DX: R41.82 Altered mental status, unspecified (principal); B96.1 Klebsiella pneumoniae [K. pneumoniae] as the cause of diseases classified elsewhere | CPT/HCPCS: 87086; 87088; 87186 ==

== ENCOUNTER → 2022-01-16 17:11 | Outpatient (CLI) | payer MEDICARE, MEDICAID, SELFPAY | PROVIDERS: PCP Family Medicine; Visit Provider Family Medicine | DX: R41.82 Altered mental status, unspecified (principal) | CPT/HCPCS: 87086 ==

== ENCOUNTER → 2022-05-28 11:30 | Outpatient (CLI) | payer MEDICARE, MEDICAID, SELFPAY ==
--- NOTE | 2022-05-28 11:33 | XR_ITS ---
FINAL REPORT CLINICAL HISTORY: lbp FINDINGS: Three views were obtained. There is a moderate, chronic T12 compression fracture. There is mild leftward curvature. Alignment is otherwise normal. There are mild degenerative change with osteophytes. There is moderate vascular calcification. Postoperative changes are seen in the right abdomen. IMPRESSION: Chronic T12 compression fracture. Reviewed, Interpreted and Dictated by Dez Low III, MD Transcribed by Thompson Echols Authenticated and [facility]
== END ==
PROVIDERS: PCP Family Medicine; Visit Provider Family Medicine
DX: M54.50 Low back pain, unspecified (principal); N28.9 Disorder of kidney and ureter, unspecified; B95.2 Enterococcus as the cause of diseases classified elsewhere
CPT/HCPCS: 72100; 87086; 87088; 87186

== ENCOUNTER → 2022-06-21 08:48 | Outpatient (POV) | payer MEDICARE, MEDICAID, SELFPAY ==
[2022-06-21 09:03] VITALS: BP 170/96; PULSE 73; RESP 18; O2SAT 97; BMI 29.9
--- NOTE | 2022-06-21 09:31 | EXP.PAIN.OV ---
HPI Data of Consult Patient: new to practice Consult date: 06/21/22 Requesting Physician: Meaghan Pro APRN Primary Care Provider: Roman Medina MD Consult Narrative Reason for consult: Low back pain History of present illness: Ms. Vidal is a 66 year old female who presents today as a new patient. She is a referral from Giovanni Medina's office. Today she rates her pain a 9 out of 10. Patient states the pain is all in her low back with radiating symptoms into her left leg. Patient states approximately 2 weeks ago she was getting up and tripped falling onto her back. Patient states she has been experiencing balance issues for quite some time. Patient states she was seen by her doctor who ordered x-rays that did show a compression fracture. Patient does state this is a aching, throbbing, sharp sensation with increased activity. Patient states she has a history of osteoporosis. Patient states she frequently has trouble sleeping at night due to the constant tossing and turning and increased pain symptoms. Patient has tried Tylenol with some improvement. Patient states she has a intolerance to any ibuprofen due to years ago taking too many and overdosing on them. Patient is currently prescribed Flexeril 10 mg twice daily and trazodone 200 mg at bedtime along with [place] 5 mg daily from her primary care doctor. Patient denies any side effects from these medications. She states these medications do help some with her pain symptoms. Patient states she also uses a heating pad and has tried Biofreeze with some additional improvement. Patient states she has had physical therapy in the past. Patient is also been a previous [facility] pain management patient and had injections that provided significant improvement. Patient does present today in a wheelchair. Her Joshua is [phone]. Its been reviewed and appropriate. CC: Meaghan Pro APRN [facility] Disclaimer: The information contained in this section may have been updated after the patient was seen, as this information can be updated by other users. Medical History CAD (coronary artery disease) COPD (chronic obstructive pulmonary disease) Coronary artery calcification seen on CT scan Edema Elevated left ventricular end-diastolic pressure (LVEDP) HHD (hypertensive heart disease) HTN (hypertension) Hyperlipidemia (~11/21/17) Numbness PRAKASH on CPAP SOB (shortness of breath) Tobacco abuse Vitamin D deficiency (~11/21/17) Social History (Updated 06/21/22 @ 09:07 by Quynh Jones RN) Smoking Status: Former smoker pack-years: 45 second hand exposure: Yes alcohol intake: never substance use type: marijuana current occupational status: disabled Travel in the last 8 weeks: None household members: spouse housing: house current occupational exposures/hazards: No caffeine: No Review of Systems Review of Systems Review of systems:: pertinent systems reviewed and negative unless documented below Review of systems (narrative): Review of Systems: General: No recent weight changes, no fever, no sleep disturbances Respiratory: No cough, no shortness of air, no recurring pulmonary infections Cardiovascular/peripheral vascular: No chest pain, no palpitations, no edema, no shortness of breath Gastrointestinal: No new onset incontinence, normal bowel movements reported Genitourinary: No new onset incontinence Musculoskeletal: Low back pain Psychiatric: [Normal mood/affect] Neurological: [Denies weakness in extremities], [denies balance issues] Meds Home Medications and Allergies Home Medications Medication Instructions Recorded Confirmed Type loperamide 2 mg capsule 2 mg PO DAILY PRN BOWELS 11/16/21 06/21/22 History hydrocodone 5 mg-acetaminophen 325 1 tab PO DAILY PRN severe pain #10 06/08/22 06/21/22 Rx mg tablet tabs albuterol sulfate 90 mcg/actuation See Rx Instructions .Route 06/21/22 06/21/22 History aerosol inh
== END ==
PROVIDERS: PCP Family Medicine; Visit Provider Nurse Practitioner Family
DX: M51.16 Intervertebral disc disorders with radiculopathy, lumbar region (principal)
CPT/HCPCS: 99202; G0463

== ENCOUNTER → 2022-07-03 13:18 | Outpatient (CLI) | payer MEDICARE, MEDICAID, SELFPAY ==
--- NOTE | 2022-07-03 13:23 | MR_ITS ---
FINAL REPORT CLINICAL HISTORY: compression fx t12 right hip pain with numbness down leg fall x 2 weeks ago FINDINGS: Multiplanar MR imaging of the thoracic spine was performed without contrast. On the sagittal T2-weighted images, disc degeneration is seen at multiple levels. There is a moderate chronic T12 compression fracture with approximately 50% loss of anterior height. There is no acute fracture. The vertebral alignment is normal. The thoracic spinal cord has an unremarkable appearance without evidence of mass, edema or syrinx. There is no evidence of significant canal stenosis or cord compression. On the axial images, disc bulges and small osteophytes are seen at multiple levels. No focal soft disc protrusion is identified. There is no evidence of significant canal stenosis or cord compression. No paraspinous soft tissue abnormality is identified. IMPRESSION: Moderate, chronic T12 compression fracture. Multilevel degenerative disc disease. No focal soft disc protrusion or significant central canal stenosis. Reviewed, Interpreted and Dictated by Dez Low III, MD Transcribed by Thompson Echols Authenticated and . [facility]
--- NOTE | 2022-07-03 13:23 | MR_ITS ---
FINAL REPORT CLINICAL HISTORY: LBP, FALL, COMPRESSION FX T12 FINDINGS: MRI LUMBAR SPINE W/O CONTRAST Multiplanar MR imaging of the lumbar spine was performed without contrast. On the sagittal T2-weighted images, disc degeneration is seen throughout. There are mild endplate changes at multiple levels. The vertebral alignment is normal. There is a moderate chronic T12 compression fracture. The conus has an unremarkable appearance. T11-12: No significant central canal stenosis or neural foraminal narrowing. T12-L1: An annular disc bulge is present. L1-2: An annular disc bulge is present with small anterior osteophytes. L2-3: An annular disc bulge is present. L3-4: An annular disc bulge is present. There is moderate right and mild left neural foraminal narrowing. L4-5: An annular disc bulge is present. There is a small central disc protrusion with moderate bilateral neural foraminal narrowing. L5-S1: An annular disc bulge is present. There is mild left neural foraminal narrowing. IMPRESSION: Multilevel disc degeneration and spondylosis with areas of neural foraminal narrowing as above. Reviewed, Interpreted and Dictated by Dez Low III, MD Transcribed by Bhavana Mcdowell Authenticated and [facility]
== END ==
PROVIDERS: PCP Family Medicine; Visit Provider Nurse Practitioner Family
DX: M54.6 Pain in thoracic spine (principal); M54.50 Low back pain, unspecified; S22.080D Wedge compression fracture of T11-T12 vertebra, subsequent encounter for fracture with routine healing; W19.XXXA Unspecified fall, initial encounter
CPT/HCPCS: 72146; 72148; 76376

== ENCOUNTER → 2022-07-16 08:33 | Outpatient (POV) | payer MEDICARE, MEDICAID, SELFPAY ==
[2022-07-16 08:53] VITALS: BP 143/92; PULSE 74; RESP 18; O2SAT 97; BMI 28.8
--- NOTE | 2022-07-16 09:04 | EXP.PAIN.SOA ---
[facility] Pain Management SOAP Note Subjective:: Patient is a pleasant 66-year-old female who presents today for MRI follow-up. We are currently treating the patient for low back pain, degenerative disc disease of lumbar spine with lumbar radiculopathy symptoms, chronic compression fracture. Today she rates her pain a 9 out of 10. Patient denies any new trauma or injury. Patient denies any change location or type of pain she experiences. Patient does state her pain is mid to low back and describes it as a aching, throbbing, sharp sensation that is worsened with increased activity or range of motion. Patient states this does affect her ability to perform activities of daily living such as cooking and cleaning and it has been affecting her sleeping at night. Patient is currently managed with Flexeril 10 mg twice a day and trazodone 200 mg at night. Patient in the past has been prescribed [place] 5 mg daily however she is not currently on this medication. Patient was prescribed compounding cream at our last visit that she states did provide additional improvement. Her Joshua is [phone]. Its been reviewed and appropriate. Review of Systems: General: No recent weight changes, no fever, no sleep disturbances Respiratory: No cough, no shortness of air, no recurring pulmonary infections Cardiovascular/peripheral vascular: No chest pain, no palpitations, no edema, no shortness of breath Gastrointestinal: No new onset incontinence, normal bowel movements reported Genitourinary: No new onset incontinence Musculoskeletal: Mid/low back pain, leg pain Psychiatric: [Normal mood/affect] Neurological: [Denies weakness in extremities], [denies balance issues] Objective:: Physical Exam: General: Alert and oriented x3, no acute distress, pleasant and cooperative Lungs: Respirations even and unlabored, symmetrical chest expansion Eyes: PERRL Musculoskeletal: Flexion and extension of thoracic, lumbar [spine] somewhat guarded secondary to pain, [antalgic gait noted] Neurological: Speech clear, no gross sensory deficit ORT score updated with moderate risk Family history of alcohol abuse Personal history of PTSD, bipolar and depression FINAL REPORT CLINICAL HISTORY: compression fx t12 ? right hip pain with numbness down leg fall x 2 weeks ago FINDINGS: Multiplanar MR imaging of the thoracic spine was performed without contrast. On the sagittal T2-weighted images, disc degeneration is seen at multiple levels.? There is a moderate chronic T12 compression fracture with approximately 50% loss of anterior height.? There is no acute fracture. ? The vertebral alignment is normal. The thoracic spinal cord has an unremarkable appearance without evidence of mass, edema or syrinx. There is no evidence of significant canal stenosis or cord compression.? On the axial images, disc bulges and small osteophytes are seen at multiple levels. No focal soft disc protrusion is identified. There is no evidence of significant canal stenosis or cord compression. No paraspinous soft tissue abnormality is identified. IMPRESSION: Moderate, chronic T12 compression fracture.? Multilevel degenerative disc disease.? No focal soft disc protrusion or significant central canal stenosis. Reviewed, Interpreted and Dictated by Dez Low III, MD Transcribed by Thompson Echols Authenticated and [facility] FINAL REPORT CLINICAL HISTORY: LBP, FALL, COMPRESSION FX T12 FINDINGS: MRI LUMBAR SPINE W/O CONTRAST? Multiplanar MR imaging of the lumbar spine was performed without contrast. On the sagittal T2-weighted images, disc degeneration is seen throughout.? There are mild endplate changes at multiple levels. ? The vertebral alignment is normal.? There is a moderate chronic T12 compression fracture.? The conus has an unremarkable appearance. T11-12:? No significant central canal stenosis or neural foraminal narrowi
== END ==
PROVIDERS: PCP Family Medicine; Visit Provider Nurse Practitioner Family
DX: M51.16 Intervertebral disc disorders with radiculopathy, lumbar region (principal); M51.14 Intervertebral disc disorders with radiculopathy, thoracic region; S22.089A Unspecified fracture of T11-T12 vertebra, initial encounter for closed fracture; M47.26 Other spondylosis with radiculopathy, lumbar region
CPT/HCPCS: 99212; G0463

== ENCOUNTER → 2022-07-17 09:00 | Outpatient (CLI) | payer MEDICARE, MEDICAID, SELFPAY | PROVIDERS: PCP Family Medicine; Visit Provider Family Medicine | DX: N39.0 Urinary tract infection, site not specified (principal) | CPT/HCPCS: 87086 ==

== ENCOUNTER 2022-07-24 08:13 | Day surgery (SDC) | payer MEDICARE, MEDICAID, SELFPAY ==
[2022-07-24 08:32] VITALS: BP 142/94; PULSE 69; RESP 18; TEMP 36.6; O2SAT 93; BMI 29.7
[2022-07-24 08:41] VITALS: BP 145/86; PULSE 66; RESP 18; O2SAT 98
--- NOTE | 2022-07-24 08:43 | EXP.PAIN.PRO ---
Procedure Date: 07/24/22 Time: 08:32 Anesthesiologist:: Wilian Griggs CRNA Complications:: None Pre-procedure Diagnosis:: Degenerative disc thoracic spine. Disc bulge thoracic spine. Thoracic radiculopathy. Post-procedure Diagnosis:: Same. Indications for Procedure:: Very pleasant 66-year-old female that comes our clinic today for T10-11 thoracic epidural steroid injection. Patient has a history of degenerative disc thoracic and lumbar spine. Radiculopathy thoracic and lumbar spine. Chronic compression fracture of thoracic spine. Procedure Details:: Procedure:Thoracic epidural steroid injection under fluoroscopy Informed consent was obtained and the risks and benefits of the procedure were explained to the patient. The patient was taken to the procedure room and noninvasive monitors placed, including noninvasive blood pressure cuff and pulse oximeter. The back was viewed using C-Arm fluoroscopy and prepped using Betadine as a cleansing solution and the T10-11 interspace was palpated. Skin and subcutaneous tissues were anesthetized using lidocaine 1.5% and a 25-gauge needle. After this, an 18-gauge Touhy epidural needle was placed into the T10-11 interspace and advanced using fluoroscopic guidance and loss of resistance to air until the epidural space was encountered. After confirmation of needle placement in the epidural space, with dye, a solution containing lidocaine 1.5%, 4 mL and Depo-Medrol 80 mg were incrementally injected into the thoracic epidural space. The patient tolerated the procedure well with no complications. The patient was observed in the Pain Clinic and then discharged home neurologically intact. Plan and Disposition:: Patient was discharged without incident.
[2022-07-24 08:45] VITALS: BP 178/80; PULSE 54; RESP 18; O2SAT 93
== END 2022-07-24 08:45 | disposition home or self-care (01) ==
PROVIDERS: PCP Family Medicine; Visit Provider Nurse Anesthetist, Certified Registered
DX: M51.14 Intervertebral disc disorders with radiculopathy, thoracic region (principal)
CPT/HCPCS: 62321; J1040

== ENCOUNTER → 2022-08-01 10:23 | Outpatient (CLI) | payer MEDICARE, MEDICAID, SELFPAY ==
[2022-08-01 12:04] LABS: Anion Gap 13.5 mEq/L (5-15); Blood Urea Nitrogen 26 mg/dl (7-17); Calcium 8.5 mg/dl (8.4-10.2); Carbon Dioxide 22 mmol/L (22.0-30.0); Chloride 106 mmol/L (98-107); Estimated Glomerular Filt Rate 50 ml/min (>60); GFR (African American) 61 ML/MIN (>60); Glucose 88 mg/dl (74-100); Potassium 4.5 mmoL/L (3.5-5.1); Sodium 137 mmol/L (136-145)
== END ==
PROVIDERS: PCP Family Medicine; Visit Provider Internal Medicine Cardiovascular Disease
DX: E78.2 Mixed hyperlipidemia (principal); I10 Essential (primary) hypertension; I25.10 Atherosclerotic heart disease of native coronary artery without angina pectoris; Z72.0 Tobacco use
CPT/HCPCS: 36415; 80048

== ENCOUNTER → 2022-08-08 09:09 | Outpatient (POV) | payer MEDICARE, MEDICAID, SELFPAY ==
[2022-08-08 09:55] VITALS: BP 141/88; PULSE 71; RESP 18; O2SAT 98; BMI 30.1
--- NOTE | 2022-08-08 10:09 | EXP.PAIN.SOA ---
[facility] Pain Management SOAP Note Subjective:: Patient is a pleasant 66-year-old female who presents today for follow-up of thoracic epidural at T10-T11 on 07/24/2022. We are currently treating the patient for degenerative disc disease of lumbar spine with lumbar radiculopathy symptoms, low back pain, mid back pain, chronic compression fracture. Patient states that she has had at least 70% improvement lasting significantly for 10 days. Patient states that she is still getting relief from this last injection however it has dropped down and effectiveness compared to initial start. Patient does rate her pain today an 8 out of 10. Patient denies any new trauma or injury. Patient states her pain is more in her low back during today's visit. Patient does describe this as an aching, throbbing sensation that is worse with increased activity. Patient states it does wake her up at night due to the pain. Patient does state this and interferes with her ability to perform activities of daily living such as cooking and cleaning and often cannot tolerate prolonged standing or walking due to the pain. Patient has had previous imaging of her lumbar spine that did show degenerative disc disease with spondylosis and neuroforaminal narrowing. Patient was recently given [place] 5 mg daily with a 10-day supply. Patient denies any side effects from this medication. Patient was also prescribed compounding cream that she states has helped some. Patient did also mention at our last visit she did have increased blood pressure and she did go back to Dr. MONTOYA, her shopping investigator who increased her medication and also put her on a water pill. Patient states this has seemed to improve her symptoms. Patient is scheduled for a follow-up with his office on August 24. Her Joshua is [phone]. Its been reviewed and appropriate. Review of Systems: General: No recent weight changes, no fever, no sleep disturbances Respiratory: No cough, no shortness of air, no recurring pulmonary infections Cardiovascular/peripheral vascular: No chest pain, no palpitations, no edema, no shortness of breath Gastrointestinal: No new onset incontinence, normal bowel movements reported Genitourinary: No new onset incontinence Musculoskeletal: Low back pain Psychiatric: [Normal mood/affect] Neurological: [Denies weakness in extremities], [denies balance issues] Objective:: Physical Exam: General: Alert and oriented x3, no acute distress, pleasant and cooperative Lungs: Respirations even and unlabored, symmetrical chest expansion Eyes: PERRL Musculoskeletal: Flexion and extension of lumbar [spine] somewhat guarded secondary to pain, [antalgic gait noted] Neurological: Speech clear, no gross sensory deficit FINAL REPORT CLINICAL HISTORY: LBP, FALL, COMPRESSION FX T12 FINDINGS: MRI LUMBAR SPINE W/O CONTRAST? Multiplanar MR imaging of the lumbar spine was performed without contrast. On the sagittal T2-weighted images, disc degeneration is seen throughout.? There are mild endplate changes at multiple levels. ? The vertebral alignment is normal.? There is a moderate chronic T12 compression fracture.? The conus has an unremarkable appearance. T11-12:? No significant central canal stenosis or neural foraminal narrowing.? ? T12-L1:? An annular disc bulge is present.? L1-2:? An annular disc bulge is present with small anterior osteophytes.? L2-3:? An annular disc bulge is present. L3-4:? An annular disc bulge is present.? There is moderate right and mild left neural foraminal narrowing.? L4-5:? An annular disc bulge is present.? There is a small central disc protrusion with moderate bilateral neural foraminal narrowing. L5-S1:? An annular disc bulge is present.? There is mild left neural foraminal narrowing. IMPRESSION: Multilevel disc degeneration and spondylosis with areas of neural foraminal narrowing as above. Reviewed, Interpreted and Dictated by Dez Low III, MD Transcribed by Bhavana Rockat
== END | disposition home or self-care (01) ==
PROVIDERS: PCP Family Medicine; Visit Provider Nurse Practitioner Family
DX: M51.16 Intervertebral disc disorders with radiculopathy, lumbar region (principal); M51.14 Intervertebral disc disorders with radiculopathy, thoracic region; M54.50 Low back pain, unspecified; M48.54XD Collapsed vertebra, not elsewhere classified, thoracic region, subsequent encounter for fracture with routine healing
CPT/HCPCS: 99212; G0463

== ENCOUNTER 2022-08-14 09:54 | Day surgery (SDC) | payer MEDICARE, MEDICAID, SELFPAY ==
[2022-08-14 10:07] VITALS: BP 106/78; PULSE 59; RESP 18; TEMP 36.5; O2SAT 99; BMI 30.1
[2022-08-14 10:22] VITALS: BP 116/70; PULSE 60; RESP 18; O2SAT 97
--- NOTE | 2022-08-14 10:26 | P.PCN_ITS ---
Procedure Date: 08/14/22 Time: 10:26 Anesthesiologist:: Wilian Griggs CRNA Complications:: None Pre-procedure Diagnosis:: Degenerative disc disease lumbar spine multilevels. Lumbar radiculopathy Post-procedure Diagnosis:: Same. Indications for Procedure:: This patient is a pleasant 66-year-old female that comes our clinic today for lumbar epidural steroid injection at the L3-4 level. Patient had successful thoracic epidural steroid injection several weeks ago. She complains of low ba ck pain today. She describes this pain as constant, dull, aching. She also complains of bilateral hip and leg radicular symptoms. Procedure Details:: Procedure: Lumbar epidural steroid injection under fluoroscopy Informed consent was obtained and the risks and benefits of the procedure were explained to the patient. The patient was taken to the procedure room and noninvasive monitors placed, including noninvasive blood pressure cuff and pulse oximeter. The back was viewed using C-arm Fluoroscopy and prepped using Chloraprep as a cleansing solution and the L3-4 interspace was palpated. Skin and subcutaneous tissues were anesthetized using lidocaine 1.5% and a 25-gauge needle. After this, an 18-gauge Touhy epidural needle was placed into the L3-4 interspace and advanced using fluoroscopic guidance and loss of resistance to air until the epidural space was encountered. After confirmation of needle placement in the epidural space, with dye, a solution containing normal saline, 3 mL and Depo-Medrol 80 mg were incrementally injected into the lumbar epidural space. The patient tolerated the procedure well with no complications. The patient was observed in the Pain Clinic and then discharged home neurologically intact. Plan and Disposition:: Patient was discharged without incident.
[2022-08-14 10:30] VITALS: BP 106/72; PULSE 56; RESP 18; O2SAT 99
== END 2022-08-14 10:30 | disposition home or self-care (01) ==
PROVIDERS: PCP Family Medicine; Visit Provider Nurse Anesthetist, Certified Registered
DX: M51.16 Intervertebral disc disorders with radiculopathy, lumbar region (principal); M51.14 Intervertebral disc disorders with radiculopathy, thoracic region
CPT/HCPCS: 62323; J1040

== ENCOUNTER → 2022-09-14 13:53 | Outpatient (CLI) | payer MEDICARE, MEDICAID, SELFPAY | PROVIDERS: PCP Family Medicine; Visit Provider Family Medicine | DX: N28.9 Disorder of kidney and ureter, unspecified (principal); B95.2 Enterococcus as the cause of diseases classified elsewhere | CPT/HCPCS: 87086; 87088; 87186 ==

== ENCOUNTER 2022-09-25 10:26 | Emergency (ER) | payer MEDICARE, MEDICAID, SELFPAY ==
[2022-09-25] VITALS (7 sets, daily range): BP systolic 121–148; BP diastolic 74–89; PULSE 80–103; RESP 13–20; TEMP 36.7–36.8; O2SAT 94–99; BMI 28.0
--- NOTE | 2022-09-25 10:25 | ECG_ITS ---
APPROVED REPORT Exam: Resting ECG HR:101 bpm ECG Measurements Heart Rate 101 AXES [place] 145 P 80 QRSd 86 QRS 57 QT 337 T 75 QTc 395 Conclusion SINUS TACHYCARDIA WITH OCCASIONAL SUPRAVENTRICULAR PREMATURE COMPLEXES MODERATE ST DEPRESSION [0.05+ mV ST DEPRESSION] ABNORMAL ECG UNCONFIRMED REPORT Electronically signed by : Giovanni Butler MD 09/25/2022 21:16:33
--- NOTE | 2022-09-25 10:33 | CT_ITS ---
FINAL REPORT TECHNIQUE: Axial images through the abdomen and pelvis were performed without contrast. This study was performed with techniques to keep radiation doses as low as reasonably achievable, (ALARA). Individualized dose reduction techniques using automated exposure control or adjustment of mA and/or kV according to the patient's size were employed. CLINICAL HISTORY: abdominal pain FINDINGS: ABDOMEN: The heart size is normal. Limited images of the liver are unremarkable. The spleen is normal. No adrenal mass is identified. The aorta is normal in caliber. There is no significant free fluid or adenopathy. There is no nephrolithiasis. There is no hydronephrosis. There is a right anterior abdominal wall ostomy. There is postoperative change of the midline abdominal wall. PELVIS: The appendix is not identified. The urinary bladder is unremarkable. There is no significant free fluid or adenopathy. There are postoperative changes in the left hemipelvis. There is stranding of the presacral fat. IMPRESSION: Right anterior abdominal wall ostomy. Postoperative change in the left hemipelvis. Reviewed, Interpreted and Dictated by Michael Avery MD Transcribed by Thompson Echols Authenticated and [facility]
--- NOTE | 2022-09-25 10:33 | CT_ITS ---
FINAL REPORT CLINICAL HISTORY: chest pain FINDINGS: Axial images were obtained from the lung apex to the mid abdomen by computed tomography. Coronal reformatted images were obtained. This study was performed with techniques to keep radiation doses as low as reasonably achievable, (ALARA). Individualized dose reduction techniques using automated exposure control or adjustment of mA and/or kV according to the patient's size were employed. There are a few small mediastinal lymph nodes. There are small scattered axillary lymph nodes measuring up to 1.8 cm with preserved fatty ann. Heart size is normal. The aorta is normal in caliber. There is no pericardial effusion. There is loculated fluid in the medial left lung base. There are mild changes of emphysema. No suspicious infiltrate or nodule is identified. There is a fat containing right diaphragmatic hernia. IMPRESSION: Fat containing right diaphragmatic hernia. Loculated left pleural effusion. Reviewed, Interpreted and Dictated by Michael Avery MD Transcribed by Thompson Echols Authenticated and [facility]
--- NOTE | 2022-09-25 10:49 | PC.NURSE ---
and STEFFI Lawton at bedside for US IV attempt
--- NOTE | 2022-09-25 10:50 | HMH.EDGENADL ---
Discharge Plan Disposition Patient Disposition: Home, Self-Care Condition: Fair Prescriptions Prescriptions: New levofloxacin 750 mg tablet 750 mg PO DAILY 10 Days Qty: 10 0RF No Action carvedilol [Coreg] 3.125 mg tablet 3.125 mg PO BID Qty: 60 2RF Rx Instructions: must administer with a meal/food oxycodone-acetaminophen [Percocet] 10-325 mg tablet 1 tab PO Q8H PRN (Reason: pain) Qty: 30 0RF Rx Instructions: for postoperative pain pending re-evaluation penicillin V potassium 500 mg tablet 500 mg PO TID Qty: 24 0RF loperamide 2 mg capsule 2 mg PO DAILY PRN (Reason: BOWELS) pantoprazole 40 mg tablet,delayed release (DR/EC) See Rx Instructions .ROUTE .COMPLEX Qty: 30 2RF Dose Instruction: TAKE ONE TABLET BY MOUTH ONCE A DAY FOR GERD Rx Instructions: TAKE ONE TABLET BY MOUTH ONCE A DAY FOR GERD aspirin 81 mg tablet,delayed release (DR/EC) See Rx Instructions .ROUTE .COMPLEX Qty: 30 2RF Dose Instruction: TAKE ONE TABLET BY MOUTH ONCE A DAY Rx Instructions: TAKE ONE TABLET BY MOUTH ONCE A DAY bupropion HCl 75 mg tablet See Rx Instructions .ROUTE .COMPLEX Qty: 180 2RF Dose Instruction: TAKE 4 TABLETS BY MOUTH IN THE MORNING AND 2 TABLETS AT NOON (TAKE 6 HOURS APART) Rx Instructions: TAKE 4 TABLETS BY MOUTH IN THE MORNING AND 2 TABLETS AT NOON (TAKE 6 HOURS APART) albuterol sulfate 90 mcg/actuation HFA aerosol inhaler See Rx Instructions .ROUTE .COMPLEX Qty: 18 2RF Dose Instruction: INHALE 1 OR 2 PUFFS BY MOUTH 4 TIMES A DAY NEEDED Rx Instructions: INHALE 1 OR 2 PUFFS BY MOUTH 4 TIMES A DAY NEEDED trazodone 100 mg tablet See Rx Instructions .ROUTE .COMPLEX Qty: 60 2RF Dose Instruction: TAKE TWO TABLETS BY MOUTH AT BEDTIME Rx Instructions: TAKE TWO TABLETS BY MOUTH AT BEDTIME alendronate 70 mg tablet See Rx Instructions .ROUTE .COMPLEX Qty: 4 2RF Dose Instruction: TAKE ONE TABLET BY MOUTH EVERY WEEK Rx Instructions: TAKE ONE TABLET BY MOUTH EVERY WEEK losartan-hydrochlorothiazide 100-12.5 mg tablet 1 tab PO DAILY polyethylene glycol 3350 17 GM powder in packet 17 g PO DAILY potassium chloride 20 mEq packet 20 meq PO DAILY levothyroxine 50 mcg tablet See Rx Instructions .ROUTE .COMPLEX Rx Instructions: TAKE ONE TABLET BY MOUTH ONCE A DAY FOR THYROID ondansetron 4 mg tablet,disintegrating 4 mg PO Q8H Spiriva Respimat 1.25 mcg/actuation mist 2 puff INHALATION DAILY cyclobenzaprine 10 mg tablet See Rx Instructions .ROUTE .COMPLEX Rx Instructions: TAKE ONE TABLET BY MOUTH 2 TIMES A DAY NEEDED triazolam [Halcion] 0.25 mg tablet 0.25 mg PO ONCE Rx Instructions: take 30 minutes prior to MRI rosuvastatin 20 mg tablet See Rx Instructions .ROUTE .COMPLEX Rx Instructions: TAKE ONE TABLET BY MOUTH ONCE A DAY tizanidine [Zanaflex] 4 mg tablet 4 mg PO BID Referrals Follow up/Referrals: Lazarus North MD [Primary Care Provider] - See instructions Clinical Impressions Clinical Impression: Pleural effusion, Chest pain Instructions Patient Instructions: DI for Atypical Chest Pain, DI for Pleural Effusion Print Language Print Language: Faroese Discharge ED Provider: Abdiaziz Celeste General Adult HPI General Chief complaint: Chest Pain Stated complaint: chest pain Time Seen by Provider: 09/25/22 13:13 Mode of Arrival: Wheelchair Source of Information: Patient Limitations: No Limitations Description of Symptoms (Recalled from ER Triage Doc. by RN): pt to ED with middle back pain that radiates to her anterior chest midsternal area. pt describes it as a stabbing sensation that worsens when she inhales. History of Present Illness HPI narrative: Patient presents to the emergency department with several complaints including chest pain, abdominal pain, chills, body ache
[2022-09-25 11:03] LABS: Basophils % 0.3 % (0.1-2.0); Eosinophils # 0.2 K/mm3 (0.0-0.4); Eosinophils % 1.1 % (0.1-12.0); Hemoglobin 10.5 g/dL (12.2-16.2); Lymphocytes # 0.6 K/mm3 (0.7-4.5); Lymphocytes % 4.4 % (10-50); Mean Corpuscular HGB Conc 30.9 g/dL (31.8-35.4); Mean Corpuscular Hemoglobin 27.4 pg (27.0-31.2); Mean Corpuscular Volume 88.8 fl (81-99); Mean Platelet Volume 7.2 fl (7.4-10.4); Monocytes # 0.7 K/mm3 (0.1-1.0); Monocytes % 5.1 % (1.7-9.3); Neutrophils # 12.8 K/mm3 (1.8-7.8); Neutrophils % 89.1 % (37.0-80.0); Platelet Count 223 K/mm3 (142-424); Red Blood Count 3.83 M/mm3 (4.20-5.40); Red Cell Distribution Width 16.8 % (11.5-17.5); White Blood Count 14.3 K/mm3 (4.8-10.8)
[2022-09-25 11:05] LABS: Chloride 99 mmol/L (98-107); Potassium 3.7 mmoL/L (3.5-5.1); Sodium 131 mmol/L (136-145)
[2022-09-25 11:08] LABS: Alanine Aminotransferase 23 U/L (12-78); Albumin Level 3.4 g/dl (3.5-5.0); Albumin/Globulin Ratio 0.9 (1.1-1.8); Alkaline Phosphatase 139 U/L (38-126); Anion Gap 14.7 mEq/L (5-15); Aspartate Amino Transferase 24 U/L (14-36); Bilirubin,Total 0.7 mg/dl (0.2-1.3); Blood Urea Nitrogen 14 mg/dl (7-17); Calcium 7.4 mg/dl (8.4-10.2); Carbon Dioxide 21 mmol/L (22.0-30.0); Creatinine Clearance Estimated 64 mL/min (50-200); Estimated Glomerular Filt Rate 63 ml/min (>60); GFR (African American) 76 ML/MIN (>60); Globulin 3.7 g/dL (1.3-3.2); Glucose 112 mg/dl (74-100); Lactic Acid 1.2 mmol/L (0.7-2.1); Lipase 26 U/L (23-300); Total Protein,Serum 7.1 g/dl (6.3-8.2)
[2022-09-25 11:09] LABS: MANUAL DIFFERENTIAL MANUAL DIFFERENTIAL (MANUAL DIFF)
--- NOTE | 2022-09-25 11:25 | PC.NURSE ---
pt going to radiology at this time.
[2022-09-25 11:56] LABS: Eosinophils % 1 % (0-3); Hypochromasia 1+; Lymphocytes % 4 % (10-50); Monocytes % 6 % (2-9); Neutrophils % 89 % (42-76); Total Cells Counted 100
[2022-09-25 12:00] LABS: Platelet Estimate Normal
--- NOTE | 2022-09-25 12:06 | PC.NURSE ---
per CT staff, pt IV infiltrated during contrast for CT, states pt did not c/o of any pain until after scan, reports Ct was essentially a non-contrast CT, ER MD is aware. ER MD states he will view pts non-cts and then will decide if pt needs another scan with contrast.
--- NOTE | 2022-09-25 12:10 | PC.NURSE ---
checked on pt at this time, pt has cool rag on LUE over IV infiltration site. Pt requesting something for pain , have notified ER MD of pt request.
--- NOTE | 2022-09-25 15:55 | PC.NURSE ---
verbal prescription given to [facility] (pharmacist)
== END 2022-09-25 13:44 | disposition home or self-care (01) ==
PROVIDERS: Emergency Provider Emergency Medicine; PCP Emergency Medicine
DX: J90 Pleural effusion, not elsewhere classified (principal); R07.9 Chest pain, unspecified
CPT/HCPCS: 71250; 74176; 80053; 83605; 83690; 85007; 85025; 93005; 96360; 96374; 96375; 99285; J2405; Q9967

== ENCOUNTER → 2022-10-17 13:33 | Outpatient (POV) | payer MEDICARE, MEDICAID, SELFPAY ==
--- NOTE | 2022-10-17 13:52 | EXP.PAIN.SOA ---
[facility] Pain Management SOAP Note Subjective:: Patient is a pleasant 66-year-old female who presents today for follow-up of lumbar epidural at L3-4 on 08/14/2022.? We are currently treating the patient for degenerative disc disease of lumbar spine with lumbar radiculopathy symptoms, low back pain, mid back pain, chronic compression fracture.? Patient rates her pain today an 8 out of 10. Patient states that she did miss her previous follow-up from this injection due to being hospitalized. She states that around the beginning of August she did have to go into the hospital for a colon obstruction where she was taken to surgery and had scar tissue removed. She states following this episode she did start having episodes of chest pain and was sent to the field service tech who had no significant findings. She was sent on to cardiology and had additional test ran and was found to have bilateral PEs. Patient has been started on Eliquis. Patient denies any other change to her pain symptoms following that timeframe. She does continue to states she has back pain that is an aching, throbbing sensation that is worse with increased activity. Patient is currently prescribed Percocet 10 mg 3 times a day from her primary care doctor. She also is managed with compounding cream and tizanidine 4 mg twice a day. Patient denies any side effects from these medications. She does state that these medications do help. Her Joshua is [phone]. Its been reviewed and appropriate. Review of Systems: General: No recent weight changes, no fever, no sleep disturbances Respiratory: No cough, no shortness of air, no recurring pulmonary infections Cardiovascular/peripheral vascular: No chest pain, no palpitations,? no edema, no shortness of breath Gastrointestinal: No new onset incontinence, normal bowel movements reported Genitourinary: No new onset incontinence Musculoskeletal: Low back pain Psychiatric: [Normal mood/affect] Neurological: [Denies weakness in extremities], [denies balance issues] Objective:: Physical Exam: General: Alert and oriented x3, no acute distress, pleasant and cooperative Lungs: Respirations even and unlabored, symmetrical chest expansion Eyes: PERRL Musculoskeletal: Flexion and extension of lumbar [spine] somewhat guarded secondary to pain, [antalgic gait noted] Neurological: Speech clear, no gross sensory deficit Assessment:: degenerative disc disease of thoracic and lumbar spine with thoracic and lumbar radiculopathy symptoms, low back pain, mid back pain, chronic compression fracture Plan:: Patient is experiencing significant pain in her low back with limited range of motion of her lumbar spine. Due to her ongoing bilateral PEs we are not able to do any injections at this time. I will send in a prescription of prednisone 20 mg twice daily for 5 days and also send in a refill of her tizanidine 4 mg twice daily with a 1 month supply. Patient will return to clinic in 1 month for reevaluation of symptoms and plan of care. Patient has been instructed to contact the clinic with any concerns before the next appointment. Dr. Brown has reviewed this note and agrees with this plan of care. This note was dictated using voice recognition software and make contain errors or omissions. [facility] Disclaimer: The information contained in this section may have been updated after the patient was seen, as this information can be updated by other users. Medical History CAD (coronary artery disease) COPD (chronic obstructive pulmonary disease) Coronary artery calcification seen on CT scan Dyspnea on exertion Edema Elevated left ventricular end-diastolic pressure (LVEDP) HHD (hypertensive heart disease) HTN (hypertension) Hyperlipidemia (~11/21/17) Numbness PRAKASH on CPAP Pleural effusion, left SOB (shortness of breath) Stopped smoking with greater than 30 pack year history Tobacco abuse Vitamin D deficiency (~11/21/17)
[2022-10-17 14:58] VITALS: BP 126/78; PULSE 65; RESP 18; O2SAT 97; BMI 27.8
== END | disposition home or self-care (01) ==
PROVIDERS: PCP Family Medicine; Visit Provider Nurse Practitioner Family
DX: M51.16 Intervertebral disc disorders with radiculopathy, lumbar region (principal); M51.14 Intervertebral disc disorders with radiculopathy, thoracic region
CPT/HCPCS: 99212; G0463

== ENCOUNTER → 2022-10-25 11:00 | Outpatient (CLI) | payer MEDICARE, MEDICAID, SELFPAY | PROVIDERS: PCP Nurse Practitioner Family; Visit Provider Nurse Practitioner Family | DX: N39.0 Urinary tract infection, site not specified (principal); B96.1 Klebsiella pneumoniae [K. pneumoniae] as the cause of diseases classified elsewhere | CPT/HCPCS: 87086; 87088; 87186 ==

== ENCOUNTER → 2022-11-06 16:11 | Outpatient (CLI) | payer MEDICARE, MEDICAID, SELFPAY ==
[2022-11-06 19:42] LABS: Basophils % 0.8 % (0.1-2.0); Eosinophils # 0.1 K/mm3 (0.0-0.4); Eosinophils % 2.5 % (0.1-12.0); Hematocrit 33.4 % (37.0-47.0); Hemoglobin 10.6 g/dL (12.2-16.2); Lymphocytes # 0.8 K/mm3 (0.7-4.5); Lymphocytes % 29.6 % (10-50); Mean Corpuscular HGB Conc 31.8 g/dL (31.8-35.4); Mean Corpuscular Hemoglobin 27.9 pg (27.0-31.2); Mean Corpuscular Volume 87.8 fl (81-99); Mean Platelet Volume 9.8 fl (7.4-10.4); Monocytes # 0.3 K/mm3 (0.1-1.0); Monocytes % 10.7 % (1.7-9.3); Neutrophils # 1.5 K/mm3 (1.8-7.8); Neutrophils % 56.4 % (37.0-80.0); Platelet Count 190 K/mm3 (142-424); Red Cell Distribution Width 19.1 % (11.5-17.5); White Blood Count 2.7 K/mm3 (4.8-10.8)
[2022-11-06 20:04] LABS: Alanine Aminotransferase 17 U/L (12-78); Albumin/Globulin Ratio 1.1 (1.1-1.8); Alkaline Phosphatase 97 U/L (38-126); Anion Gap 16.3 mEq/L (5-15); Aspartate Amino Transferase 34 U/L (14-36); Bilirubin,Total 0.2 mg/dl (0.2-1.3); Blood Urea Nitrogen 10 mg/dl (7-17); Calcium 6.9 mg/dl (8.4-10.2); Carbon Dioxide 27 mmol/L (22.0-30.0); Chloride 99 mmol/L (98-107); Chol/HDL Ratio 2.3 (1-3.5); Cholesterol 108 mg/dl (140-200); Estimated Glomerular Filt Rate 84 ml/min (>60); GFR (African American) 102 ML/MIN (>60); Globulin 2.8 g/dL (1.3-3.2); Glucose 83 mg/dl (74-100); HDL Cholesterol 46 mg/dl (40-60); Potassium 3.3 mmoL/L (3.5-5.1); Sodium 139 mmol/L (136-145); Total Protein,Serum 5.8 g/dl (6.3-8.2); Triglycerides 197 mg/dl (30-150); VLDL Cholesterol 39 mg/dL (0-40)
[2022-11-06 20:15] LABS: Direct LDL Cholesterol 48.46 mg/dL (100-129)
[2022-11-06 20:23] LABS: 25-OH Vitamin D, Total 27.1 ng/mL (30-100)
[2022-11-06 20:37] LABS: Thyroid Stimulating Hormone 1.35 uIU/mL (0.465-4.68)
== END ==
PROVIDERS: PCP Family Medicine; Visit Provider Family Medicine
DX: M25.512 Pain in left shoulder (principal); E78.5 Hyperlipidemia, unspecified; I10 Essential (primary) hypertension; E55.9 Vitamin D deficiency, unspecified
CPT/HCPCS: 80053; 80061; 82306; 84443; 85025

== ENCOUNTER → 2022-11-15 10:27 | Outpatient (POV) | payer MEDICARE, MEDICAID, SELFPAY ==
[2022-11-15 10:30] VITALS: BP 125/80; PULSE 107; RESP 20; BMI 28.3
--- NOTE | 2022-11-15 10:32 | EXP.PAIN.SOA ---
[facility] Pain Management SOAP Note Subjective:: Patient is a pleasant 66-year-old female who presents today for follow-up and medication refill.? We are currently treating the patient for degenerative disc disease of lumbar spine with lumbar radiculopathy symptoms, low back pain, mid back pain, chronic compression fracture.? Patient rates her pain today an 9 out of 10.? Patient denies any new trauma or injury. She does state that her right hip is really bothering her here lately and is affecting how she can walk. Patient does describe this as an aching, throbbing sensation that is worse with increased activity. It does have some numbness and tingling into its and does interfere with her ability to perform activities of daily living such as cooking and cleaning. Patient has been undergoing treatment for bilateral PEs and has been on Eliquis. Previously she was not able to get any injections due to the current therapy. Patient does state that she does not have any upcoming appointments with Dr. Medina who is treating her for the PEs. She is currently prescribed Percocet 10 mg 3 times a day from her primary care doctor.? She also is managed with compounding cream and tizanidine 4 mg twice a day from our office.? Patient denies any side effects from these medications.? Her Joshua is [phone]. its been reviewed and appropriate. Review of Systems: General: No recent weight changes, no fever, no sleep disturbances Respiratory: No cough, no shortness of air, no recurring pulmonary infections Cardiovascular/peripheral vascular: No chest pain, no palpitations,? no edema, no shortness of breath Gastrointestinal: No new onset incontinence, normal bowel movements reported Genitourinary: No new onset incontinence Musculoskeletal: Right hip pain Psychiatric: [Normal mood/affect] Neurological: [Denies weakness in extremities], [denies balance issues] Objective:: Physical Exam: General: Alert and oriented x3, no acute distress, pleasant and cooperative Lungs: Respirations even and unlabored, symmetrical chest expansion Eyes: PERRL Musculoskeletal: Flexion and extension of right hip somewhat guarded secondary to pain, [antalgic gait noted] Neurological: Speech clear, no gross sensory deficit Assessment:: Degenerative disc disease of lumbar spine with lumbar radiculopathy symptoms, low back pain, mid back pain, chronic compression fracture, right hip pain Plan:: Patient is experiencing worsening pain in her right hip with limited range of motion. I have discussed with the patient that she may benefit from a right hip intra-articular injection. Risk and benefits were discussed with the patient and she would like to proceed forward with this plan of care. We will contact Dr. Medina's office and confirm that she can schedule the intra-articular injection due to her recent history of PEs. Patient does state that she believes these are resolving. I will also refill her tizanidine 4 mg twice a day and provide a 1 month supply of this medication. Patient will be scheduled for a right hip intra-articular injection. Patient has been instructed to contact the clinic with any concerns before the next appointment. Dr. Brown has reviewed this note and agrees with this plan of care. This note was dictated using voice recognition software and make contain errors or omissions. [facility] Disclaimer: The information contained in this section may have been updated after the patient was seen, as this information can be updated by other users. Medical History CAD (coronary artery disease) COPD (chronic obstructive pulmonary disease) Coronary artery calcification seen on CT scan Dyspnea on exertion Edema Elevated left ventricular end-diastolic pressure (LVEDP) HHD (hypertensive heart disease) HTN (hypertension) Hyperlipidemia (~11/21/17) Numbness PRAKASH on CPAP Pleural effusion, left SOB (shortness of breath) Stopped smoking with greater than
== END | disposition home or self-care (01) ==
PROVIDERS: PCP Family Medicine; Visit Provider Nurse Practitioner Family
DX: M51.16 Intervertebral disc disorders with radiculopathy, lumbar region (principal); M48.50XG Collapsed vertebra, not elsewhere classified, site unspecified, subsequent encounter for fracture with delayed healing; M25.551 Pain in right hip
CPT/HCPCS: 99212; G0463

== ENCOUNTER → 2022-11-23 10:04 | Outpatient (CLI) | payer MEDICARE, MEDICAID, SELFPAY | PROVIDERS: PCP Family Medicine; Visit Provider Family Medicine | DX: N39.0 Urinary tract infection, site not specified (principal); R39.15 Urgency of urination; B95.2 Enterococcus as the cause of diseases classified elsewhere | CPT/HCPCS: 87086; 87186 ==

== ENCOUNTER 2022-11-27 07:41 | Day surgery (SDC) | payer MEDICARE, MEDICAID, SELFPAY ==
[2022-11-27 08:16] VITALS: BP 125/80; PULSE 70; RESP 18; TEMP 36.6; O2SAT 96; BMI 27.4
[2022-11-27 08:35] VITALS: BP 147/86; PULSE 78; RESP 18; O2SAT 98
[2022-11-27 08:36] VITALS: BP 147/86; PULSE 78; RESP 18; O2SAT 98
--- NOTE | 2022-11-27 08:39 | EXP.PAIN.PRO ---
Procedure Date: 11/27/22 Time: 08:20 Anesthesiologist:: Wilian Griggs CRNA Complications:: None Pre-procedure Diagnosis:: Osteoarthritis right hip. Chronic right hip pain. Post-procedure Diagnosis:: Same. Indications for Procedure:: Patient is a pleasant 67-year-old female that comes our clinic today for right intra-articular hip injection. She describes pain as constant, dull, sharp and stabbing. She reports pain in the right groin as well as lateral hip pain. She rates her pain 9/10. Procedure Details:: Details of the procedure were explained to the patient. The patient was taken to procedure room placed in the supine position. The area over the right hip was cleaned using chlorhexidine as a cleansing solution. Using fluoroscopy guidance a 3 and half inch 22-gauge spinal needle was used to access the right hip joint without difficulty. After negative aspiration 3 cc of 1% lidocaine +3 cc of 0.25% Marcaine and 40 mg of Depo-Medrol was injected. Needle was withdrawn. Band-Aid applied. Patient tolerated procedure without difficulty. There are no complications. Plan and Disposition:: Patient entered the procedure room in a wheelchair due to severe right hip pain. Patient ambulated out of the procedure room without pain in the right hip. Patient will return to the clinic for follow-up appointment.
[2022-11-27 08:40] VITALS: BP 125/82; PULSE 78; RESP 18; O2SAT 95
== END 2022-11-27 08:40 | disposition home or self-care (01) ==
PROVIDERS: PCP Family Medicine; Visit Provider Nurse Anesthetist, Certified Registered
DX: M25.551 Pain in right hip (principal); R10.30 Lower abdominal pain, unspecified; M16.11 Unilateral primary osteoarthritis, right hip
CPT/HCPCS: 20610; 77002; J1040

== ENCOUNTER → 2022-12-03 10:29 | Outpatient (CLI) | payer MEDICARE, MEDICAID, SELFPAY ==
--- NOTE | 2022-12-03 10:32 | US_ITS ---
FINAL REPORT CLINICAL HISTORY: claudication, previous smoker, HTN, hyperlipidemia, bilateral claudication, bilateral rest pain. FINDINGS: ANKLE-BRACHIAL PRESSURE INDICES Pressure indices are as follows: RIGHT LOWER EXTREMITY: Ankle-brachial pressure index: 1.2 Comments: Normal LEFT LOWER EXTREMITY: Ankle-brachial pressure index: 1.17 Comments: Normal IMPRESSION: No evidence of significant obstructive peripheral vascular disease of the lower extremities Reviewed, Interpreted and Dictated by Dez Low III, MD Transcribed by Rafaela Cota Authenticated and . [facility]
== END ==
PROVIDERS: PCP Family Medicine; Visit Provider Nurse Practitioner
DX: I73.9 Peripheral vascular disease, unspecified (principal)
CPT/HCPCS: 93923

== ENCOUNTER → 2022-12-05 12:36 | Outpatient (CLI) | payer MEDICARE, MEDICAID, SELFPAY ==
--- NOTE | 2022-12-05 12:37 | CT_ITS ---
FINAL REPORT TECHNIQUE: Then section axial CT images of the chest were obtained with contrast. Three-D reformatted images were also obtained.This study was performed with techniques to keep radiation doses as low as reasonably achievable (ALARA). Individualized dose reduction techniques using automated exposure control or adjustment of mA and/or kV according to the patient''s size were employed. CLINICAL HISTORY: PE protocol COMPARISON: CT chest 09/25/2022 and 11/05/2019 FINDINGS: There is no evidence of pulmonary embolism. There is no evidence of thoracic aortic aneurysm or dissection. There is no evidence of mediastinal or hilar mass or adenopathy. There is a small pericardial effusion. There is no evidence of pulmonary mass or suspicious nodule. Mild scarring is noted. There is a soft tissue opacity in the posterior right upper lobe measuring 18 mm which is new. This is nonspecific and favored to be inflammatory or neoplastic. There is soft tissue thickening in the lateral left lower lobe favored to be inflammatory. Small left pleural effusion is noted. There is mild emphysema. There is right posterior diaphragmatic hernia containing fat. Limited images of the upper abdomen demonstrate a 21 mm fluid collection in the left upper quadrant adjacent to the tail of the pancreas of uncertain etiology. This could represent pseudocyst or other fluid collection. IMPRESSION: No evidence of pulmonary embolism. New posterior right upper lobe soft tissue opacity favored to be inflammatory. Worsening lateral left base opacities favor opacities, favor inflammatory. This can be further evaluated with follow-up chest CT. Fluid collection adjacent to the tail of the pancreas may represent pseudocyst or other fluid collection Reviewed, Interpreted and Dictated by Dez Low III, MD Transcribed by Heather Lemons Authenticated and [facility]
== END ==
PROVIDERS: PCP Family Medicine; Visit Provider Family Medicine
DX: I26.99 Other pulmonary embolism without acute cor pulmonale (principal)
CPT/HCPCS: 71275; Q9967

== ENCOUNTER → 2022-12-07 13:05 | Outpatient (CLI) | payer MEDICARE, MEDICAID, SELFPAY | PROVIDERS: PCP Family Medicine; Visit Provider Family Medicine | DX: N39.0 Urinary tract infection, site not specified (principal) | CPT/HCPCS: 87086 ==

== ENCOUNTER → 2022-12-12 08:47 | Outpatient (POV) | payer MEDICARE, MEDICAID, SELFPAY ==
--- NOTE | 2022-12-12 10:17 | EXP.PAIN.SOA ---
[facility] Pain Management SOAP Note Subjective:: Patient is a pleasant 67-year-old female who presents today for follow-up of right intra-articular hip injection on 11/27/2022. We are currently treating the patient for degenerative disc disease of lumbar spine with lumbar radiculopathy symptoms, low back pain, mid back pain, chronic compression fractures, right hip pain. Today she rates her pain a 7 out of 10. Patient states she has had 100% relief of her right hip symptoms following her injection and it still continues to provide relief. Today she does state her pain is in her low back and legs. She does describe this as an aching, throbbing sensation that is worse with increased activity. It does interfere with her ability to perform activities of daily living. Patient does state that she has recently had a CT that did show that the blood clots in her lungs were no longer present. She states she is scheduled for a repeat CT in 1 month. Patient is currently on Eliquis by Dr. Medina. Patient is currently prescribed Percocet 10 mg 3 times a day from her primary care doctor and compounding cream and tizanidine 4 mg twice a day from our office. She denies any side effects from these medications. She is requesting a refill of her tizanidine. Her Joshua is [phone]. Its been reviewed and appropriate. Review of Systems: General: No recent weight changes, no fever, no sleep disturbances Respiratory: No cough, no shortness of air, no recurring pulmonary infections Cardiovascular/peripheral vascular: No chest pain, no palpitations, no edema, no shortness of breath Gastrointestinal: No new onset incontinence, normal bowel movements reported Genitourinary: No new onset incontinence Musculoskeletal: Low back pain Psychiatric: [Normal mood/affect] Neurological: [Denies weakness in extremities], [denies balance issues] Objective:: Physical Exam: General: Alert and oriented x3, no acute distress, pleasant and cooperative Lungs: Respirations even and unlabored, symmetrical chest expansion Eyes: PERRL Musculoskeletal: Flexion and extension of lumbar [spine] somewhat guarded secondary to pain, [antalgic gait noted] Neurological: Speech clear, no gross sensory deficit Assessment:: Degenerative disc disease of lumbar spine with lumbar radiculopathy symptoms, low back pain, mid back pain, chronic compression fractures, right hip pain Plan:: Patient is experiencing significant pain in her low back with radiating symptoms into her legs. Patient did have limited range of motion of her lumbar spine during today's visit. I have discussed with the patient that she may benefit from a lumbar epidural steroid injection. Risk and benefits were discussed with the patient and she would like to proceed forward with this plan of care. Due to still being on Eliquis we will contact Dr. Medina's office and confirm she can stop this medication prior to this injection. I will refill the patient's tizanidine 4 mg twice daily and provide a 1 month supply of this medication. Patient will be scheduled for an LESI L4-L5. Patient has been instructed to contact the clinic with any concerns before the next appointment. Dr. Brown has reviewed this note and agrees with this plan of care. This note was dictated using voice recognition software and make contain errors or omissions. [facility] Disclaimer: The information contained in this section may have been updated after the patient was seen, as this information can be updated by other users. Medical History CAD (coronary artery disease) Claudication COPD (chronic obstructive pulmonary disease) Coronary artery calcification seen on CT scan Dyspnea on exertion Edema Elevated left ventricular end-diastolic pressure (LVEDP) HHD (hypertensive heart disease) HTN (hypertension) Hyperlipidemia (~11/21/17) Numbness PRAKASH on CPAP Pleural effusion, left SOB (shortness of breath) Stopped smoking with g
[2022-12-12 10:32] VITALS: BP 124/80; PULSE 64; RESP 18; O2SAT 96; BMI 27.6
== END | disposition home or self-care (01) ==
PROVIDERS: PCP Family Medicine; Visit Provider Nurse Practitioner Family
DX: M51.16 Intervertebral disc disorders with radiculopathy, lumbar region (principal); M25.551 Pain in right hip
CPT/HCPCS: 99212; G0463

== ENCOUNTER → 2022-12-20 10:29 | Outpatient (CLI) | payer MEDICARE, MEDICAID, SELFPAY ==
--- NOTE | 2022-12-20 10:29 | MM_ITS ---
PROCEDURE INFORMATION: Exam: MG Bilateral Screening 3D Mammography Exam date and time: 12/20/2022 10:25 AM Age: 67 years old Clinical indication: Screening examination TECHNIQUE: Imaging protocol: Bilateral Screening tomosynthesis and 2D mammography including computer-aided detection (CAD) when performed. COMPARISON: 1. MG DIG MAMM-SCREEN GUIDO 01/08/2019 10:08 AM 2. MG DMSB DIG MAMM-SCREEN GUIDO 12/23/2015 4:29 PM FINDINGS: MAMMOGRAPHY: Breast composition: The breasts are almost entirely fatty. Mass: None. Architectural distortion: None. Calcifications: No suspicious calcifications. Asymmetric density: None. Skin thickening: None. Axillary adenopathy: None. IMPRESSION: No mammographic evidence of malignancy. Annual screening is recommended unless otherwise clinically indicated. ASSESSMENT: BI-RADS Category 1: Negative
== END ==
PROVIDERS: PCP Family Medicine; Visit Provider Family Medicine
DX: Z12.31 Encounter for screening mammogram for malignant neoplasm of breast (principal)
CPT/HCPCS: 77063; 77067

== ENCOUNTER → 2022-12-21 14:28 | Outpatient (CLI) | payer MEDICARE, MEDICAID, SELFPAY | PROVIDERS: PCP Family Medicine; Visit Provider Family Medicine | DX: R39.9 Unspecified symptoms and signs involving the genitourinary system (principal) | CPT/HCPCS: 87086 ==

== ENCOUNTER → 2023-01-09 08:48 | Outpatient (POV) | payer MEDICARE, MEDICAID, SELFPAY ==
[2023-01-09 09:30] VITALS: BP 90/56; PULSE 68; RESP 18; O2SAT 96; BMI 26.2
--- NOTE | 2023-01-09 09:42 | EXP.PAIN.SOA ---
[facility] Pain Management SOAP Note Subjective:: Patient is a pleasant 67-year-old female who presents today for lumbar epidural denial. We are currently treating the patient for degenerative disc disease of lumbar spine with lumbar radiculopathy symptoms, low back pain, mid back pain, chronic compression fractures, right hip pain, chronic pain syndrome. Today she rates her pain a 7 out of 10. Patient denies any new trauma or injury. She denies any change to location or type of pain she experiences. Patient does states she continues to have pain in her low back with radiating symptoms into her bilateral lower extremities. She does describe this as an aching, throbbing sensation that is worse with increased activity. It does interfere with her ability perform activities of daily living such as cooking and cleaning. Patient is currently on blood thinners by Dr. Medina's office. She is currently managed with Percocet 10 mg 3 times a day from her primary care doctor and compounding cream and tizanidine 4 mg twice a day from our office. Her Joshua is [phone]. Its been reviewed and appropriate. Review of Systems: General: No recent weight changes, no fever, no sleep disturbances Respiratory: No cough, no shortness of air, no recurring pulmonary infections Cardiovascular/peripheral vascular: No chest pain, no palpitations, no edema, no shortness of breath Gastrointestinal: No new onset incontinence, normal bowel movements reported Genitourinary: No new onset incontinence Musculoskeletal: Low back pain, bilateral leg pain Psychiatric: [Normal mood/affect] Neurological: [Denies weakness in extremities], [denies balance issues] Objective:: Physical Exam: General: Alert and oriented x3, no acute distress, pleasant and cooperative Lungs: Respirations even and unlabored, symmetrical chest expansion Eyes: PERRL Musculoskeletal: Flexion and extension of lumbar [spine] somewhat guarded secondary to pain, [antalgic gait noted] Neurological: Speech clear, no gross sensory deficit FINAL REPORT CLINICAL HISTORY: LBP, FALL, COMPRESSION FX T12 FINDINGS: MRI LUMBAR SPINE W/O CONTRAST Multiplanar MR imaging of the lumbar spine was performed without contrast. On the sagittal T2-weighted images, disc degeneration is seen throughout. There are mild endplate changes at multiple levels. The vertebral alignment is normal. There is a moderate chronic T12 compression fracture. The conus has an unremarkable appearance. T11-12: No significant central canal stenosis or neural foraminal narrowing. T12-L1: An annular disc bulge is present. L1-2: An annular disc bulge is present with small anterior osteophytes. L2-3: An annular disc bulge is present. L3-4: An annular disc bulge is present. There is moderate right and mild left neural foraminal narrowing. L4-5: An annular disc bulge is present. There is a small central disc protrusion with moderate bilateral neural foraminal narrowing. L5-S1: An annular disc bulge is present. There is mild left neural foraminal narrowing. IMPRESSION: Multilevel disc degeneration and spondylosis with areas of neural foraminal narrowing as above. Reviewed, Interpreted and Dictated by Dez Low III, MD Transcribed by Bhavana Mcdowell Authenticated and [facility] Assessment:: degenerative disc disease of lumbar spine with lumbar radiculopathy symptoms, low back pain, mid back pain, chronic compression fractures, right hip pain, chronic pain syndrome Plan:: Patient continues to experience severe pain in her low back and legs with limited range of motion. Patient was denied her lumbar epidural injection based off of not having pain going down her extremities. This was noted in our previous office note on multiple sections. Patient does have low back pain with radiating symptoms into her legs. Patient has tried and failed conservative therapy
== END | disposition home or self-care (01) ==
PROVIDERS: PCP Family Medicine; Visit Provider Nurse Practitioner Family
DX: M51.16 Intervertebral disc disorders with radiculopathy, lumbar region (principal); M54.6 Pain in thoracic spine; M25.551 Pain in right hip; G89.4 Chronic pain syndrome; M48.50XS Collapsed vertebra, not elsewhere classified, site unspecified, sequela of fracture
CPT/HCPCS: 99212; G0463

== ENCOUNTER → 2023-01-09 12:52 | Outpatient (CLI) | payer MEDICARE, MEDICAID, SELFPAY ==
[2023-01-09 13:50] VITALS: PULSE 70; PULSE 74
== END ==
LOC: RT 12:53
PROVIDERS: PCP Family Medicine; Visit Provider Internal Medicine Pulmonary Disease
DX: R06.09 Other forms of dyspnea (principal)
CPT/HCPCS: 94060; 94618; 94640; 94726; 94729; 99212; G0463

== ENCOUNTER → 2023-01-23 08:28 | Outpatient (POV) | payer MEDICARE, MEDICAID, SELFPAY ==
--- NOTE | 2023-01-23 08:41 | EXP.PAIN.SOA ---
[facility] Pain Management SOAP Note Subjective:: Patient is a pleasant 67-year-old female who presents today for lumbar epidural denial for the second time. We are currently treating the patient for degenerative disc disease of lumbar spine with lumbar radiculopathy symptoms, low back pain, mid back pain, chronic compression fractures, right hip pain, chronic pain syndrome. Today she rates her pain a 8 out of 10. Patient denies any new trauma or injury. She denies any change to location or type of pain she experiences. She states she is having debilitating pain in her low back and bilateral lower extremities. She does describe this as an aching, throbbing sensation that is worse with increased activity. She states she cannot do any activities of daily living or even simple ambulation due to her worsening pain symptoms. Patient previously got significant relief of upwards of 60 to 70% lasting 1 month from a lumbar epidural earlier this year however she had a bowel obstruction that required surgical intervention a short period of time after. Patient is currently on blood thinners by Dr. Medina's office. She is currently managed with Percocet 10 mg 3 times a day from her primary care doctor and compounding cream and tizanidine 4 mg twice a day from our office. Patient states that the pain medication does help however it only takes the edge off and she is having constant pain. Her Joshua has been reviewed and appropriate. Review of Systems: General: No recent weight changes, no fever, no sleep disturbances Respiratory: No cough, no shortness of air, no recurring pulmonary infections Cardiovascular/peripheral vascular: No chest pain, no palpitations, no edema, no shortness of breath Gastrointestinal: No new onset incontinence, normal bowel movements reported Genitourinary: No new onset incontinence Musculoskeletal: Low back pain, bilateral leg pain Psychiatric: [Normal mood/affect] Neurological: [Denies weakness in extremities], [denies balance issues] Objective:: Physical Exam: General: Alert and oriented x3, no acute distress, pleasant and cooperative Lungs: Respirations even and unlabored, symmetrical chest expansion Eyes: PERRL Musculoskeletal: Flexion and extension of lumbar [spine] somewhat guarded secondary to pain, [antalgic gait noted] Neurological: Speech clear, no gross sensory deficit Assessment:: Degenerative disc disease of lumbar spine with lumbar radiculopathy symptoms, low back pain, mid back pain, chronic compression fractures, right hip pain, chronic pain syndrome Plan:: Patient is experiencing severe pain in her low back and legs with limited range of motion. I will send in a 7-day prescription of prednisone 20 mg twice daily, and refill her ropinirole 0.25 mg at bedtime with a 30-day supply. I will also increase her tizanidine to 3 times per day. I have counseled the patient to contact her insurance and let our office know if she has any updates regarding getting her lumbar epidural approved. Patient will return to clinic in 1 month for reevaluation of symptoms and plan of care. Patient has been instructed to contact the clinic with any concerns before the next appointment. Dr. Brown has reviewed this note and agrees with this plan of care. This note was dictated using voice recognition software and make contain errors or omissions. [facility] Disclaimer: The information contained in this section may have been updated after the patient was seen, as this information can be updated by other users. Medical History CAD (coronary artery disease) Claudication COPD (chronic obstructive pulmonary disease) Coronary artery calcification seen on CT scan Dyspnea on exertion Edema Elevated left ventricular end-diastolic pressure (LVEDP) HHD (hypertensive heart disease) HTN (hypertension) Hyperlipidemia (~11/21/17) Numbness PRAKASH on CPAP Pleural effusion, left SOB (shortness of breath) St
[2023-01-23 09:35] VITALS: BP 110/82; PULSE 91; RESP 18; O2SAT 98; BMI 26.2
== END | disposition home or self-care (01) ==
PROVIDERS: Visit Provider Nurse Practitioner Family
DX: M51.16 Intervertebral disc disorders with radiculopathy, lumbar region (principal); M54.50 Low back pain, unspecified; M54.6 Pain in thoracic spine; M84.40XS Pathological fracture, unspecified site, sequela; M25.551 Pain in right hip; G89.4 Chronic pain syndrome
CPT/HCPCS: 99212; G0463

== ENCOUNTER → 2023-03-04 08:32 | Outpatient (POV) | payer MEDICARE, MEDICAID, SELFPAY ==
--- NOTE | 2023-03-04 09:10 | EXP.PAIN.SOA ---
[facility] Pain Management SOAP Note Subjective:: Patient is a pleasant 67-year-old female who presents today for lumbar epidural denial. We are currently treating the patient for degenerative disc disease of lumbar spine with lumbar radiculopathy symptoms, low back pain, mid back pain, chronic compression fractures, right hip pain, chronic pain syndrome. Today she rates her pain a 6 out of 10. Patient denies any new trauma or injury. She denies any change to location or type of pain she experiences. She continues to have pain in her low back with radiating symptoms into her bilateral lower extremities. She does describe this as an aching, throbbing sensation that is worse with increased activity. It does interfere with her ability perform activities of daily living such as cooking and cleaning. Patient previously had a lumbar epidural in the past that did provide 60 to 70% improvement that was done back in July. Patient is interested in repeating this injection. Patient is currently on blood thinners by Dr. Medina's office. She is currently managed with Percocet 10 mg 3 times a day from her primary care doctor and compounding cream and tizanidine 4 mg 3 times a day and ropinirole 0.25 mg at bedtime from our office. Her Joshua is [id number]. Its been reviewed and appropriate. Review of Systems: General: No recent weight changes, no fever, no sleep disturbances Respiratory: No cough, no shortness of air, no recurring pulmonary infections Cardiovascular/peripheral vascular: No chest pain, no palpitations, no edema, no shortness of breath Gastrointestinal: No new onset incontinence, normal bowel movements reported Genitourinary: No new onset incontinence Musculoskeletal: Low back pain, bilateral leg pain Psychiatric: [Normal mood/affect] Neurological: [Denies weakness in extremities], [denies balance issues] Objective:: Physical Exam: General: Alert and oriented x3, no acute distress, pleasant and cooperative Lungs: Respirations even and unlabored, symmetrical chest expansion Eyes: PERRL Musculoskeletal: Flexion and extension of lumbar [spine] somewhat guarded secondary to pain, [antalgic gait noted] Neurological: Speech clear, no gross sensory deficit Assessment:: Degenerative disc disease of the lumbar spine with lumbar radiculopathy symptoms, low back pain, mid back pain, chronic compression fractures, right hip pain, chronic pain syndrome Plan:: Patient is experiencing severe pain in her low back and legs with limited range of motion. Patient did have limited range of motion of her lumbar spine during today's visit. I have discussed with the patient that she may benefit from a lumbar epidural steroid injection. Risk and benefits were discussed with the patient and she still would like to proceed forward with this. Patient is currently on blood thinners and we will contact Dr. Medina's office and confirm she can come off her Eliquis prior to her lumbar epidural. Patient has tried and failed conservative therapy such as oral medications, heat and ice, topicals, physical therapy, at home stretching and exercise for longer than 6 weeks I will also send in a refill of her tizanidine 4 mg 3 times a day and ropinirole 0.25 mg at bedtime and provide a 3 month supply of this medication. Patient will be scheduled for an LESI L4-L5 Patient has been instructed to contact the clinic with any concerns before the next appointment. Dr. Brown has reviewed this note and agrees with this plan of care. This note was dictated using voice recognition software and make contain errors or omissions. [facility] Disclaimer: The information contained in this section may have been updated after the patient was seen, as this information can be updated by other users. Medical History CAD (coronary artery disease) Claudication COPD (chronic obstructive pulmonary disease) Coronary artery calcification seen on CT scan Dyspnea on
[2023-03-04 09:28] VITALS: BP 83/50; PULSE 54; RESP 18; O2SAT 93; BMI 28.3
== END | disposition home or self-care (01) ==
PROVIDERS: PCP Family Medicine; Visit Provider Nurse Practitioner Family
DX: M51.16 Intervertebral disc disorders with radiculopathy, lumbar region (principal); M54.6 Pain in thoracic spine; M84.48XS Pathological fracture, other site, sequela; M25.551 Pain in right hip; G89.4 Chronic pain syndrome
CPT/HCPCS: 99212; G0463

== ENCOUNTER → 2023-03-12 14:36 | Outpatient (CLI) | payer MEDICARE, MEDICAID, SELFPAY ==
--- NOTE | 2023-03-12 14:36 | CT_ITS ---
FINAL REPORT TECHNIQUE: Axial images were obtained through the chest without contrast. CLINICAL HISTORY: Lung nodule 3-month follow-up COMPARISON: 12/05/2022 FINDINGS: There is a small pericardial effusion present, measuring up to 8 mm in depth, new since the prior CT of November 2022. There are mild changes of centrilobular emphysema present. There is bilateral pleural and parenchymal apical scarring. There has been near complete resolution of the previously noted nodule in the posterior right upper lobe, best seen on image #112. There is a mild residual linear density at the site, likely scar. There is consolidation in the left lung base with pleural and parenchymal scar, which is stable since the prior CT. There is a fat-containing hernia of the posterior right hemidiaphragm, also stable. IMPRESSION: Near complete resolution of the previously noted nodular mass in the posterior right upper lobe, with mild residual linear density, likely scar. Changes of centrilobular emphysema, biapical scarring, and left lung base pleural and parenchymal scar are all stable since the prior CT. Reviewed, Interpreted and Dictated by Michael Avery MD Transcribed by Micheline Cohn Authenticated and . [facility]
== END ==
PROVIDERS: PCP Family Medicine; Visit Provider Internal Medicine Pulmonary Disease
DX: R91.8 Other nonspecific abnormal finding of lung field (principal)
CPT/HCPCS: 71250

== ENCOUNTER → 2023-03-15 08:52 | Outpatient (CLI) | payer MEDICARE, MEDICAID, SELFPAY ==
--- NOTE | 2023-03-15 08:52 | XR_ITS ---
FINAL REPORT TECHNIQUE: Bone densitometry calculations of the lumbar spine and left hip were obtained. CLINICAL HISTORY: recurrent falls/back pain FINDINGS: Using L1-4, the bone mineral density of the spine is 0.901 g/cm2, corresponding to T-score of -1.3. Using the left hip, the bone mineral density of the femoral neck is 0.563 g/cm2, corresponding to a T-score of -2.6. Using the right hip, the bone mineral density of the femoral neck is 0.579 g/cm2, corresponding to a T-score of -2.4. NOTE: T-score: Standard deviation compared with peak bone mass of young adult mean. *Following the recommendations of the International Society of Bone densitometry, classification of hip BMD is based on the lower of two T-scores; total hip or femoral neck. IMPRESSION: Diminished bone mineral density consistent with osteoporosis. FRAX was not reported because patient is being treated for osteoporosis. Reviewed, Interpreted and Dictated by Michael Avery MD Transcribed by Maddie Zimmerman Authenticated and [facility]
== END ==
PROVIDERS: PCP Family Medicine; Visit Provider Family Medicine
DX: M81.0 Age-related osteoporosis without current pathological fracture (principal)
CPT/HCPCS: 77080

== ENCOUNTER → 2023-03-21 09:32 | Outpatient (POV) | payer MEDICARE, MEDICAID, SELFPAY ==
--- NOTE | 2023-03-21 10:04 | EXP.PAIN.SOA ---
[facility] Pain Management SOAP Note Subjective:: Patient is a pleasant 67-year-old female who presents today for her second lumbar epidural denial. We are currently treating the patient for degenerative disc disease of lumbar spine with lumbar radiculopathy symptoms, low back pain, mid back pain, chronic compression fractures, right hip pain, chronic pain syndrome, mid back pain. Today she rates her pain an 8 out of 10. Patient denies any new trauma or injury. Patient states she continues to have significant pain in her mid back as well as her low back and into her legs. Patient does describe this as a debilitating achy, throbbing sensation with numbness and tingling into her lower extremities. Patient does state that the pain interferes with her ability perform activities of daily living such as cooking and cleaning. Patient has previously had a lumbar epidural that did provide at least 50% improvement back in July and had a thoracic epidural that did provide 70% improvement lasting a few months. Patient is interested in repeating these injections. She is currently managed with Percocet 10 mg 3 times a day from her PCP and compounded cream, tizanidine 4 mg 3 times a day and ropinirole 0.25 mg at bedtime from our office. Her Joshua has been reviewed and is appropriate. Review of Systems: General: No recent weight changes, no fever, no sleep disturbances Respiratory: No cough, no shortness of air, no recurring pulmonary infections Cardiovascular/peripheral vascular: No chest pain, no palpitations, no edema, no shortness of breath Gastrointestinal: No new onset incontinence, normal bowel movements reported Genitourinary: No new onset incontinence Musculoskeletal: Mid back pain, low back pain, bilateral leg pain Psychiatric: [Normal mood/affect] Neurological: [Denies weakness in extremities], [denies balance issues] Objective:: Physical Exam: General: Alert and oriented x3, no acute distress, pleasant and cooperative Lungs: Respirations even and unlabored, symmetrical chest expansion Eyes: PERRL Musculoskeletal: Flexion and extension of thoracic, lumbar [spine] somewhat guarded secondary to pain, [antalgic gait noted] Neurological: Speech clear, no gross sensory deficit Assessment:: Degenerative disc disease of thoracic and lumbar spine with thoracic and lumbar radiculopathy symptoms, low back pain, mid back pain, chronic compression fractures, right hip pain, chronic pain syndrome Plan:: Patient is experiencing significant pain in her thoracic and lumbar spine with limited range of motion. I have discussed with the patient that she may benefit from a thoracic epidural steroid injection. Patient previously had 70% improvement lasting several months with this injection. Risk and benefits were discussed with the patient regarding this injection and she would like to proceed forward. Patient is not on any blood thinners. I will also refill the patient's tizanidine 4 mg and ropinirole 0.25 mg at bedtime and provide a 1 month supply of this medication. We will schedule the patient a T KARL T10-T11. Patient has been instructed to contact the clinic with any concerns before the next appointment. Dr. Brown has reviewed this note and agrees with this plan of care. This note was dictated using voice recognition software and make contain errors or omissions. [facility] Disclaimer: The information contained in this section may have been updated after the patient was seen, as this information can be updated by other users. Medical History CAD (coronary artery disease) Claudication COPD (chronic obstructive pulmonary disease) Coronary artery calcification seen on CT scan Dyspnea on exertion Edema Elevated left ventricular end-diastolic pressure (LVEDP) HHD (hypertensive heart disease) HTN (hypertension) Hyperlipidemia (~11/21/17) Numbness PRAKASH on CPAP Pleural effusion, left SOB (shortness of breath) Stop
[2023-03-21 10:36] VITALS: BP 153/97; PULSE 97; RESP 20; O2SAT 97; BMI 26.5
== END | disposition home or self-care (01) ==
PROVIDERS: PCP Family Medicine; Visit Provider Nurse Practitioner Family
DX: M51.14 Intervertebral disc disorders with radiculopathy, thoracic region (principal); M51.16 Intervertebral disc disorders with radiculopathy, lumbar region; M84.48XS Pathological fracture, other site, sequela; M25.551 Pain in right hip; G89.4 Chronic pain syndrome
CPT/HCPCS: 99212; G0463

== ENCOUNTER 2023-03-27 13:34 | Emergency (ER) | payer MEDICARE, MEDICAID, SELFPAY ==
[2023-03-27] VITALS (8 sets, daily range): BP systolic 133–183; BP diastolic 78–113; PULSE 64–87; RESP 17–20; TEMP 36.6–37.1; O2SAT 86–100; BMI 27.1
--- NOTE | 2023-03-27 14:20 | HMH.EDGENADL ---
Discharge Plan Disposition Patient Disposition: Home, Self-Care Condition: Good Prescriptions Prescriptions: New promethazine 25 mg tablet 25 mg PO Q6H PRN (Reason: sedation) Qty: 10 0RF No Action naloxone 4 mg/actuation spray,non-aerosol 1 spray intranasal ONCE oxycodone-acetaminophen 5-325 mg tablet 1 tab PO TID PRN (Reason: pain) Qty: 45 0RF Rx Instructions: dose change loperamide 2 mg capsule 2 mg PO DAILY PRN (Reason: BOWELS) methenamine hippurate 1 gram tablet 1 g PO BID albuterol sulfate 90 mcg/actuation HFA aerosol inhaler 2 inh inhalation QID PRN (Reason: shortness of breath or wheezing) 90 Days Qty: 8.5 2RF apixaban 5 mg tablet 5 mg PO BID Qty: 60 10RF bupropion HCl 75 mg tablet See Rx Instructions .ROUTE .COMPLEX Qty: 120 10RF Rx Instructions: TAKE 4 TABLETS BY MOUTH IN THE MORNING AND 2 TABLETS AT NOON (TAKE 6 HOURS APART) carvedilol [Coreg] 3.125 mg tablet 3.125 mg PO BID Qty: 60 5RF Rx Instructions: must administer with a meal/food ergocalciferol (vitamin D2) [Drisdol] 1,250 mcg (50,000 unit) capsule 1,250 mcg PO WEEKLY Qty: 7 10RF levothyroxine 50 mcg tablet See Rx Instructions .ROUTE .COMPLEX Qty: 90 3RF Rx Instructions: TAKE ONE TABLET BY MOUTH ONCE A DAY FOR THYROID fluticasone propionate 50 mcg/actuation spray,suspension See Rx Instructions .ROUTE .COMPLEX Qty: 16 3RF Rx Instructions: USE 1 SPRAY IN EACH NOSTRIL ONCE A DAY pantoprazole 40 mg tablet,delayed release (DR/EC) See Rx Instructions .ROUTE .COMPLEX Qty: 90 3RF Rx Instructions: TAKE ONE TABLET BY MOUTH ONCE A DAY FOR GERD rosuvastatin 20 mg tablet See Rx Instructions .ROUTE .COMPLEX Qty: 90 3RF Rx Instructions: TAKE ONE TABLET BY MOUTH ONCE A DAY Stiolto Respimat 2.5-2.5 mcg/actuation mist 2 puff inhalation DAILY Qty: 4 10RF trazodone 100 mg tablet See Rx Instructions .ROUTE .COMPLEX Qty: 180 3RF Rx Instructions: TAKE TWO TABLETS BY MOUTH AT BEDTIME alendronate 70 mg tablet See Rx Instructions .ROUTE .COMPLEX Rx Instructions: TAKE ONE TABLET BY MOUTH EVERY WEEK ondansetron 4 mg tablet,disintegrating 4 mg PO Q8H tizanidine [Zanaflex] 4 mg tablet 4 mg PO TID Qty: 90 2RF ropinirole 0.25 mg tablet 0.25 mg PO HS Qty: 30 2RF Rx Instructions: administer 1-3 hours before bedtime Referrals Follow up/Referrals: Provider,Referral, MD [Referring] - See instructions Activity Restrictions/Add. Instructions Additional Instructions/Restrictions: You were evaluated in the emergency department today. Please make sure that you are drinking plenty of fluids. Hydrate at home. Keep your follow-up with your primary care provider tomorrow to get reassessed and have your labs rechecked. 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 Take Tylenol and ibuprofen at home as needed for pain or fever. Return to the emergency department for any new or worsening symptoms. Clinical Impressions Clinical Impression: Gastroenteritis, YAJAIRA (acute kidney injury), Hypokalemia Instructions Patient Instructions: DI for Diarrhea and Traveler's Diarrhea -- Adult, DI for Nausea -- Adult Discharge ED Provider: Meaghan Cai General Adult HPI General Chief complaint: Nausea/Vomiting/Diarrhea Stated complaint: vomiting Time Seen by Provider: 03/27/23 13:53 Mode of Arrival: Wheelchair Source of Information: Patient Limitations: No Limitations Description of Symptoms (Recalled from ER Triage Doc. by RN): Patient sitting with as a visitor in the ER when she began to start throwing up. No other complaints at this time. Patient states she took a zofran with no relief. History of Present Illness HPI narrative: This patient is a 67-year-old female with a history of hypertension, hyperlipidemia, CAD, PRAKASH, hypertensive heart disease, anemia, and anal cancer coming i
[2023-03-27 14:32] LABS: Basophils % 0.7 % (0.1-2.0); Eosinophils # 0.2 K/mm3 (0.0-0.4); Eosinophils % 3.1 % (0.1-12.0); Hematocrit 42.5 % (37.0-47.0); Hemoglobin 13.2 g/dL (12.2-16.2); Lymphocytes # 1.3 K/mm3 (0.7-4.5); Lymphocytes % 25.3 % (10-50); Mean Corpuscular Hemoglobin 28.3 pg (27.0-31.2); Mean Corpuscular Volume 91.3 fl (81-99); Mean Platelet Volume 8.2 fl (7.4-10.4); Monocytes # 0.4 K/mm3 (0.1-1.0); Monocytes % 8.2 % (1.7-9.3); Neutrophils # 3.3 K/mm3 (1.8-7.8); Neutrophils % 62.6 % (37.0-80.0); Platelet Count 282 K/mm3 (142-424); Red Blood Count 4.65 M/mm3 (4.20-5.40); Red Cell Distribution Width 17.9 % (11.5-17.5); White Blood Count 5.3 K/mm3 (4.8-10.8)
[2023-03-27 14:39] LABS: Chloride 102 mmol/L (98-107); Potassium 3.2 mmoL/L (3.5-5.1); Sodium 138 mmol/L (136-145)
[2023-03-27 14:41] LABS: Blood Urea Nitrogen 28 mg/dl (7-17); Creatinine Clearance Estimated 41 mL/min (50-200); Estimated Glomerular Filt Rate 35 ml/min (>60); GFR (African American) 42 ML/MIN (>60)
[2023-03-27 14:42] LABS: Alanine Aminotransferase 27 U/L (12-78); Albumin Level 4.2 g/dl (3.5-5.0); Alkaline Phosphatase 82 U/L (38-126); Anion Gap 18.2 mEq/L (5-15); Aspartate Amino Transferase 35 U/L (14-36); Bilirubin,Total 0.5 mg/dl (0.2-1.3); Carbon Dioxide 21 mmol/L (22.0-30.0); Globulin 4.1 g/dL (1.3-3.2); Glucose 133 mg/dl (74-100); Lipase 60 U/L (23-300); Total Protein,Serum 8.3 g/dl (6.3-8.2)
--- NOTE | 2023-03-27 14:49 | PC.NURSE ---
covid/flu swab sent to lab
--- NOTE | 2023-03-27 14:53 | PC.NURSE ---
pt resting in the bed warm blanket received call light at bs
[2023-03-27 15:09] LABS: Coronavirus 19, PCR Not Detected (NotDetected); Influenza A, PCR Not Detected (NotDetected); Influenza B, PCR Not Detected (NotDetected)
== END 2023-03-27 15:51 | disposition home or self-care (01) ==
PROVIDERS: Emergency Provider Emergency Medicine; PCP Family Medicine
DX: E87.6 Hypokalemia (principal); A09 Infectious gastroenteritis and colitis, unspecified; N17.9 Acute kidney failure, unspecified; I11.9 Hypertensive heart disease without heart failure; I25.10 Atherosclerotic heart disease of native coronary artery without angina pectoris; E78.5 Hyperlipidemia, unspecified; J44.9 Chronic obstructive pulmonary disease, unspecified; G47.33 Obstructive sleep apnea (adult) (pediatric); E55.9 Vitamin D deficiency, unspecified; Z87.891 Personal history of nicotine dependence; Z99.89 Dependence on other enabling machines and devices
CPT/HCPCS: 80053; 83690; 85025; 87636; 96361; 96374; 99284

== ENCOUNTER → 2023-03-28 01:10 | Outpatient (CLI) | payer MEDICARE, MEDICAID, SELFPAY | PROVIDERS: PCP Family Medicine; Visit Provider Family Medicine | DX: R30.0 Dysuria (principal); B95.2 Enterococcus as the cause of diseases classified elsewhere | CPT/HCPCS: 87086 ==

== ENCOUNTER → 2023-04-06 10:07 | Outpatient (CLI) | payer MEDICARE, MEDICAID, SELFPAY ==
[2023-04-06 11:46] LABS: Alanine Aminotransferase 17 U/L (12-78); Albumin Level 2.7 g/dl (3.5-5.0); Albumin/Globulin Ratio 0.9 (1.1-1.8); Alkaline Phosphatase 80 U/L (38-126); Anion Gap 12.2 mEq/L (5-15); Aspartate Amino Transferase 22 U/L (14-36); Blood Urea Nitrogen 14 mg/dl (7-17); Calcium 8.3 mg/dl (8.4-10.2); Carbon Dioxide 21 mmol/L (22.0-30.0); Chloride 109 mmol/L (98-107); Estimated Glomerular Filt Rate 72 ml/min (>60); GFR (African American) 87 ML/MIN (>60); Glucose 82 mg/dl (74-100); Potassium 4.2 mmoL/L (3.5-5.1); Sodium 138 mmol/L (136-145); Total Protein,Serum 5.7 g/dl (6.3-8.2)
[2023-04-06 11:48] LABS: Bilirubin,Total < 0.1 mg/dl (0.2-1.3)
== END ==
LOC: LAB 10:08
PROVIDERS: PCP Family Medicine; Visit Provider Family Medicine
DX: K52.9 Noninfective gastroenteritis and colitis, unspecified (principal); N17.9 Acute kidney failure, unspecified
CPT/HCPCS: 36415; 80053

== ENCOUNTER 2023-04-09 08:59 | Day surgery (SDC) | payer MEDICARE, MEDICAID, SELFPAY ==
[2023-04-09 09:09] VITALS: BP 98/69; PULSE 58; RESP 18; TEMP 36.7; O2SAT 97; BMI 28.5
--- NOTE | 2023-04-09 09:42 | EXP.PAIN.PRO ---
Procedure Date: 04/09/23 Time: 09:30 Anesthesiologist:: Wilian Griggs CRNA Complications:: None Pre-procedure Diagnosis:: Degenerative disc thoracic spine. Thoracic radiculopathy. Post-procedure Diagnosis:: Same. Indications for Procedure:: Patient is a very pleasant 67-year-old female comes our clinic today for thoracic epidural steroid injection at the T10-11 level. Patient has had this injection in the past with significant improvement terms of her overall thoracic back pain as well as thoracic radicular symptoms. Patient rates her pain today 7/10. Procedure Details:: Procedure:Thoracic epidural steroid injection under fluoroscopy Informed consent was obtained and the risks and benefits of the procedure were explained to the patient. The patient was taken to the procedure room and noninvasive monitors placed, including noninvasive blood pressure cuff and pulse oximeter. The back was viewed using C-Arm fluoroscopy and prepped using Betadine as a cleansing solution and the T9-T10 interspace was palpated. Skin and subcutaneous tissues were anesthetized using lidocaine 1.5% and a 25-gauge needle. After this, an 18-gauge Touhy epidural needle was placed into the T9-T10 interspace and advanced using fluoroscopic guidance and loss of resistance to air until the epidural space was encountered. After confirmation of needle placement in the epidural space, with dye, a solution containing lidocaine 1.5%, 4 mL and Depo-Medrol 80 mg were incrementally injected into the thoracic epidural space. The patient tolerated the procedure well with no complications. The patient was observed in the Pain Clinic and then discharged home neurologically intact. Plan and Disposition:: Patient was discharged out incident.
[2023-04-09 09:45] VITALS: BP 109/67; PULSE 61
[2023-04-09 09:53] VITALS: BP 116/72; PULSE 59; RESP 18; O2SAT 96
[2023-04-09 09:54] VITALS: BP 116/72; PULSE 59; RESP 18; O2SAT 96
== END 2023-04-09 09:41 | disposition home or self-care (01) ==
PROVIDERS: PCP Family Medicine; Visit Provider Nurse Anesthetist, Certified Registered
DX: M51.14 Intervertebral disc disorders with radiculopathy, thoracic region (principal)
CPT/HCPCS: 62321; J1040

== ENCOUNTER → 2023-04-26 09:25 | Outpatient (POV) | payer MEDICARE, MEDICAID, SELFPAY ==
--- NOTE | 2023-04-26 09:32 | EXP.PAIN.SOA ---
[facility] [place] Pain Management SOAP Note Subjective:: Patient is a pleasant 67-year-old female who presents today for follow-up after thoracic epidural T10-t11 on 04/09/2023. We are currently treating the patient for degenerative disc disease of lumbar spine with lumbar radiculopathy symptoms, low back pain, mid back pain, chronic compression fractures, right hip pain, chronic pain syndrome. Today she rates her pain an 5 out of 10. She does state following this injection she has had at least 60% improvement in her mid back pain and that it is continuing to provide relief. She does state today that her pain is all related to her low back and into her lower legs as well as that she has a right sprained ankle. Patient does state following this injection she was able to increase her activity and has been up moving around more than what she has in months. Patient does present today ambulating with the assistance of a cane instead of having to use a wheelchair. Patient does state that she still has to take time when she does activities around the house but she is finally feeling like she is more able to complete these. She does state that the low back pain does interfere still with her ability to perform activities of daily living such as cooking and cleaning and that she still would like to try to get the lower injection done. She does describe this as a constant achy, throbbing sensation with numbness and tingling into her lower extremities. She is currently managed with Percocet 5 mg 3 times a day from her PCP and compounded cream, tizanidine 4 mg 3 times a day and ropinirole 0.25 mg at bedtime from our office. Her Joshua has been reviewed and is appropriate. Review of Systems: General: No recent weight changes, no fever, no sleep disturbances Respiratory: No cough, no shortness of air, no recurring pulmonary infections Cardiovascular/peripheral vascular: No chest pain, no palpitations, no edema, no shortness of breath Gastrointestinal: No new onset incontinence, normal bowel movements reported Genitourinary: No new onset incontinence Musculoskeletal: low back pain, bilateral leg pain Psychiatric: [Normal mood/affect] Neurological: [Denies weakness in extremities], [denies balance issues] Objective:: Physical exam General: Alert and oriented x3, no acute distress, pleasant and cooperative Lungs: Respirations even and unlabored, symmetrical chest expansion Eyes: PERRL Musculoskeletal: Flexion and extension of lumbar [spine] somewhat guarded secondary to pain, [antalgic gait noted] Neurological: Speech clear, no gross sensory deficit Assessment:: Degenerative disc disease of lumbar spine with lumbar radiculopathy symptoms, low back pain, mid back pain, chronic compression fractures, right hip pain, chronic pain syndrome Plan:: Patient has had significant improvement following her thoracic epidural and does not require any additional injective therapy at this location. Patient is currently experiencing worsening pain in her low back and legs with limited range of motion. I have discussed with the patient that I still believe that she would get beneficial relief following a lumbar epidural. Risk and benefits were discussed with patient and she would like to proceed forward with this plan of care. Patient is currently on blood thinners and will have to stop this 4 days prior to her injection. We will submit to insurance for the lumbar epidural steroid injection L4-L5 and contact the patient once we have approval. I will refill the patient's tizanidine 4 mg 3 times a day and ropinirole 0.25 mg at bedtime and provide a 1 month supply of these medications. Patient has been instructed to contact the clinic with any concerns before the next appointment. This note was dictated using voice recognition software and may contain errors or omissions. [facility] Disclaimer: The information contained in this section may have been updated after the patient was seen, as this
[2023-04-26 09:47] VITALS: BP 143/78; PULSE 64; RESP 18; O2SAT 95; BMI 29.2
== END ==
PROVIDERS: PCP Family Medicine; Visit Provider Nurse Practitioner Family
DX: M51.16 Intervertebral disc disorders with radiculopathy, lumbar region (principal); M54.6 Pain in thoracic spine; M25.551 Pain in right hip; G89.4 Chronic pain syndrome; M84.48XS Pathological fracture, other site, sequela
CPT/HCPCS: 99212; G0463

== ENCOUNTER → 2023-04-29 21:37 | Outpatient (CLI) | payer MEDICARE, MEDICAID, SELFPAY ==
[2023-04-29 22:08] LABS: Microscopic, Urine URINE MICROSCOPIC (MICROSCOPIC)
[2023-04-29 22:28] LABS: Appearance,Urine CLEAR (Clear); Blood, Urine TRACE-I (Negative); Color,Urine ORANGE (Yellow); Glucose,Urine (UA) TRACE (Negative); Ketones,Urine Negative (Negative); Leukocyte Esterase,Urine 2+ (Negative); Nitrate,Urine POSITIVE (Negative); Protein,Urine 2+ (Negative); Specific Gravity, Urine 1.025 (1.005-1.030)
[2023-04-29 22:31] LABS: Bilirubin,Urine Negative (Negative)
[2023-04-29 22:51] LABS: Bacteria,Urine 1+ /lpf; Yeast,Urine 1+ /lpf
== END ==
PROVIDERS: PCP Family Medicine; Visit Provider Family Medicine
DX: R30.0 Dysuria (principal); B95.2 Enterococcus as the cause of diseases classified elsewhere; N39.0 Urinary tract infection, site not specified
CPT/HCPCS: 81001; 87086

== ENCOUNTER → 2023-05-13 08:35 | Outpatient (CLI) | payer MEDICARE, MEDICAID, SELFPAY | PROVIDERS: PCP Family Medicine; Visit Provider Family Medicine | DX: R39.9 Unspecified symptoms and signs involving the genitourinary system (principal); B96.89 Other specified bacterial agents as the cause of diseases classified elsewhere | CPT/HCPCS: 87086 ==

== ENCOUNTER → 2023-05-29 23:00 | Outpatient (CLI) | payer MEDICARE, MEDICAID, SELFPAY ==
[2023-05-29 18:52] LABS: Amphetamine/Metha Screen,Urine Negative ng/ml (<1000)
[2023-05-29 18:53] LABS: Barbiturates Screen,Urine Negative ng/ml (<200)
[2023-05-29 18:54] LABS: Benzodiazepines Screen,Urine Negative ng/ml (<200)
[2023-05-29 18:55] LABS: Cocaine Screen,Urine Negative ng/ml (<300); Methadone Screen,Urine Negative ng/ml (<300)
[2023-05-29 18:56] LABS: Opiate Screen,Urine Negative ng/ml (<300)
[2023-05-29 18:57] LABS: Phencyclidine Screen,Urine Negative ng/ml (<25)
[2023-05-29 19:34] LABS: Cannabinoid Screen,Urine Negative ng/ml (<50)
== END ==
PROVIDERS: PCP Family Medicine; Visit Provider Family Medicine
DX: Z79.899 Other long term (current) drug therapy (principal)
CPT/HCPCS: 80305

== ENCOUNTER → 2023-05-30 13:45 | Outpatient (CLI) | payer MEDICARE, MEDICAID, SELFPAY ==
[2023-05-30 15:40] LABS: Alanine Aminotransferase 20 U/L (12-78); Albumin Level 3.3 g/dl (3.5-5.0); Alkaline Phosphatase 67 U/L (38-126); Aspartate Amino Transferase 37 U/L (14-36); Bilirubin,Direct 0.4 mg/dl (0.0-0.4); Bilirubin,Total 0.4 mg/dl (0.2-1.3); Chol/HDL Ratio 2.3 (1-3.5); Cholesterol 105 mg/dl (140-200); HDL Cholesterol 46 mg/dl (40-60); Total Protein,Serum 6.2 g/dl (6.3-8.2); Triglycerides 219 mg/dl (30-150); VLDL Cholesterol 44 mg/dL (0-40)
[2023-05-30 15:52] LABS: Direct LDL Cholesterol 39.95 mg/dL (100-129)
== END ==
PROVIDERS: PCP Family Medicine; Visit Provider Physician Assistant
DX: E78.5 Hyperlipidemia, unspecified (principal); G47.33 Obstructive sleep apnea (adult) (pediatric); I10 Essential (primary) hypertension; I25.10 Atherosclerotic heart disease of native coronary artery without angina pectoris; R06.02 Shortness of breath; Z72.0 Tobacco use; Z99.89 Dependence on other enabling machines and devices
CPT/HCPCS: 36415; 80061; 80076

== ENCOUNTER → 2023-06-06 23:26 | Outpatient (CLI) | payer MEDICARE, MEDICAID, SELFPAY | PROVIDERS: PCP Nurse Practitioner; Visit Provider Nurse Practitioner | DX: N39.0 Urinary tract infection, site not specified (principal); B96.89 Other specified bacterial agents as the cause of diseases classified elsewhere | CPT/HCPCS: 87086 ==

== ENCOUNTER → 2023-06-26 15:05 | Outpatient (POV) | payer MEDICARE, MEDICAID, SELFPAY ==
--- NOTE | 2023-06-26 16:09 | A.OFFVIS_ITS ---
[facility] Pain Management SOAP Note Subjective:: Patient is a pleasant 67-year-old female who presents today for follow-up and insurance denial. We are currently treating the patient for degenerative disc disease of thoracic and lumbar spine with thoracic and lumbar radiculopathy symptoms, chronic compression fractures, right hip pain, chronic pain syndrome. Today she rates her pain a 5 out of 10. Patient denies any new trauma or injury. She states she continues to have worsening pain in her low back with radiating symptoms down her entire legs. She does describe this as an aching, throbbing sensation that also has numbness and tingling into her lower extremities. Patient did previously have a lumbar epidural back in July of this year that did provide 70% improvement for more lasting several months. Patient did have a bowel resection in August and felt like in the immediate timeframe that she was not able to gauge just how significant this injection helped however she does state during today's visit that it obviously helped for several months more than 3 because she did not have to come back into our office and request another injection before then. Patient does state her pain is debilitating and does interfere with her daily life. She states she is unable to tolerate activities of daily living such as cooking or cleaning or even simple ambulation. She states she has to frequently stop and take multiple breaks. Patient does use a cane as well as a wheelchair depending on how bad her pain is on a day-to-day basis. Patient has tried and failed conservative therapy such as oral medication, heat and ice, topicals, physical therapy, at home stretching exercises for longer than 6 weeks. Patient is interested in repeating her previous lumbar epidural. Patient is currently managed with Percocet 5 mg 3 times a day from her primary care provider and compounded cream, tizanidine 4 mg 3 times a day and ropinirole 0.25 mg at bedtime from our office. Her Joshua has been reviewed and is appropriate. Review of Systems: General: No recent weight changes, no fever, no sleep disturbances Respiratory: No cough, no shortness of air, no recurring pulmonary infections Cardiovascular/peripheral vascular: No chest pain, no palpitations, no edema, no shortness of breath Gastrointestinal: No new onset incontinence, normal bowel movements reported Genitourinary: No new onset incontinence Musculoskeletal: Low back pain, bilateral leg pain Psychiatric: [Normal mood/affect] Neurological: [Denies weakness in extremities], [denies balance issues] Objective:: Physical Exam: General: Alert and oriented x3, no acute distress, pleasant and cooperative Lungs: Respirations even and unlabored, symmetrical chest expansion Eyes: PERRL Musculoskeletal: Flexion and extension of lumbar [spine] somewhat guarded secondary to pain, [antalgic gait noted] Neurological: Speech clear, no gross sensory deficit Assessment:: Degenerative disc disease of thoracic and lumbar spine with thoracic and lumbar radiculopathy symptoms, chronic compression fractures, right hip pain, chronic pain syndrome Plan:: Patient continues to experience significant pain in her low back and legs with limited range of motion. I have discussed with patient that she would most likely benefit from a repeat lumbar epidural steroid injection. Risk and benefits were discussed with patient and she would like to proceed forward with this plan of care. Patient did previously have a lumbar epidural that did provide 70% improvement that the patient does states she got more than 3 months relief with. I will also refill the patient's tizanidine 4 mg 3 times a day and ropinirole 0.25 mg at bedtime and provide a 1 month supply of this medication. Patient is currently on blood thinners and I have counseled the patient that she will have to stop this 4 days prior to her injection. This medication is prescribed by Dr. Medina and we will reach out to his office to confirm there are no contraindications with stopping this medication. Patient will be scheduled for an LESI L4-L5. All epidurals are done under fluoroscopic guidance to confirm placement. Patient has been counseled to contact our office with any questions or concerns before their next appointment date. This note has been dictated using voice recognition software and may contain errors or omissions. Dr. Brown has read this note and agrees with this plan of care. [facility] Disclaimer: The information contained in this section may have been updated after the patient was seen, as this information can be updated by other users. Medical History CAD (coronary artery disease) Claudication COPD (chronic obstructive pulmonary disease) Coronary artery calcification seen on CT scan Dyspnea on exertion Edema Elevated left ventricular end-diastolic pressure (LVEDP) HHD (hypertensive heart disease) HTN (hypertension) Hyperlipidemia (~11/21/17) Numbness PRAKASH on CPAP Pleural effusion, left SOB (shortness of breath) Stopped smoking with greater than 30 pack year history Tobacco abuse Vitamin D deficiency (~11/21/17) Surgical History History of intestinal surgery Family History Other No significant family history Social History Smoking Status: Never smoker second hand exposure: Yes alcohol intake: never substance use type: marijuana current occupational status: disabled Travel in the last 8 weeks: None household members: spouse housing: house current occupational exposures/hazards: No caffeine: No
[2023-06-26 16:18] VITALS: BP 131/83; PULSE 70; RESP 18; O2SAT 94; BMI 29.2
== END | disposition home or self-care (01) ==
PROVIDERS: PCP Family Medicine; Visit Provider Nurse Practitioner Family
DX: M51.14 Intervertebral disc disorders with radiculopathy, thoracic region (principal); M51.16 Intervertebral disc disorders with radiculopathy, lumbar region; M84.48XS Pathological fracture, other site, sequela; M25.551 Pain in right hip; G89.4 Chronic pain syndrome
CPT/HCPCS: 99212; G0463

== ENCOUNTER 2023-07-01 09:11 | Outpatient (CLI) | payer MEDICARE, MEDICAID, SELFPAY ==
--- NOTE | 2023-07-01 09:12 | CT_ITS ---
APPROVED REPORT Capsule Inspector: CLINICAL INDICATION Chest Pain TECHNIQUE Image Acquisition: A 128 slice MDCT scanner (Bloca View) was used for data acquisition. A noncontrast coronary calcium scan was performed. A CT attenuation threshold of 130 Hounsfield units (HU) was used for the detection of calcium in contiguous voxels of 1 sq mm in area to be counted as individual lesions. Bolus tracking in the ascending aorta with a threshold of 180 HU was performed. Immediately afterwards, ECG synchronized cardiac CT was then performed from the cardiac base to apex using retrospective gating with ECG tube current modulation. A total of 85 mL of Isovue 370 mg/mL contrast medium was administered at 5 mL/sec followed by a saline flush using a biphasic injection protocol. A tube voltage of 120 KVp was used. The patient received the following medications prior to the cardiac CT. 0.4 mg of sublingual nitroglycerin The average heart rate at the time of acquisition was 46 bpm and regular. Image Reconstruction Transaxial images were reconstructed at 0.67 mm slide thickness. Data was reviewed interactively on an advanced workstation capable of 2 and 3-dimensional displays in all conventional reconstruction formats, including multiplanar reformations, maximum intensity projections, curved multiplanar reformations, and volume rendered reconstructions. When applicable, selected routine images describing the relevant coronary anatomy and pathology were saved and sent to PACS. Complications None Technical Quality Overall image quality was good. Coronary artery opacification was adequate. Total DLP (Dose-Length Product) is 1416.1 mGy-cm. The reported value represents the total of one or more individual components during the CT acquisition of this date and at this time, and as such, the same value may appear in more than one CT report depending on the interpreting/reporting physicians. COMPARISON None FINDINGS CT Coronary Calcium Scoring LMA (Left Main Artery) = 3 LAD (Left Anterior Descending) = 232 LCX (Left Coronary Circumflex) = 225 RCA (Right Coronary Artery) = 616 Total Calcium Score = 1076 using the AJ-130 method. The observed calcium score of 1076 is at 99th percentile for subjects of the same age, sex, and race/ethnicity. The interpretation of the calcium heart score is based on the following continuum*: 0 = no calcified plaque detected (risk of coronary artery disease is very low ??? less than 5%) 1-10 = calcium detected in extremely minimal levels (risk of coronary diseases is still low ??? less than 10%) 11-100 = mild levels of plaque detected with certainty (mild or minimal narrowing of heart arteries is likely) 101-400 = definite,at least moderate levels of plaque detected (relatively high risk of a heart attack within 3-5 years) >401-999 = extensive levels of plaque detected (high risk of heart attack, high levels of vascular disease are present, high likelihood of at least one significant coronary narrowing) *The calcium heart score quantifies the burden of coronary calcification/plaque in the coronary arteries. The calcium heart score is not able to evaluate the presence or burden of non-calcified (i.e. soft) plaque. There is also identifiable calcification in the ascending and descending thoracic aorta, but not the aortic valve, mitral annulus or mitral valve, pericardium, or myocardium. Coronary CT Angiography The coronary arterial system is right dominant. Quantitative Stenosis Grading: Left Main (LM): The left main originates normally from the left sinus of Valsalva. The LM bifurcates into the left anterior descending artery and left circumflex artery. There is minimal calcification in the LM, but without any luminal stenosis. Left Anterior Descending (LAD) and Diagonal Branches: The LAD gives off 3 diagonal branches. There are multiple foci of calcification along the proximal and mid-LAD, with up to 50-70% luminal stenois noted in the mid-LAD segment. the proximal LAD There is no evidence of LAD bridge. Left Circumflex (LCX) and Obtuse Marginals (OM): The LCX gives off 1 Obtuse Marginal (OM) branch. There are multiple foci of calcification, with up to 50-70% luminal stenosis in the mid-LCX segment. Right Coronary Artery (RCA): The RCA originates normally from the right sinus of Valsalva. The RCA gives off a posterior descending artery (PDA) and posterolateral (PL) branches. There are multiple foci of calcification along the proximal and mid-RCA, with up to 50-70% luminal stenosis in the proximal segment. Non-Coronary Cardiac Findings: Analysis of the left ventricular (LV) structure and function was performed after 3-D reconstruction of the LV from axial images, with user-corrected automatic contouring for assessment of LV volumes and user-defined reconstruction from oblique planes for measurement of 3-D cardiac structure and function. LVEDV: 126 mL LVESV: 36 mL SV: 90 mL LVEF: 71.3% -The left ventricle is normal in size with normal left ventricular systolic function. -Incomplete opacification of the distal LA appendage (MYNOR filling defect vs. incomplete opacification due to contrast timing). Two right pulmonary veins and two left pulmonary veins drain normally into the left atrium. -No pericardial thickening or calcification. -Central and branch pulmonary arteries in the [id number] are unremarkable. -Thoracic aorta within the visualized thoracic aortic-branches in the [id number] is unremarkable. Extracardiac Structures Cirumferential pericardial effusion is present, measuring approximately up to 0.8 cm in diastole. IMPRESSION -Presence of extensive coronary calcification with an Agatston score = 1076 using the AJ-130 method. -The observed calcium score of 1076 is at 99th percentile for subjects of the same age, sex, and race/ethnicity. -Multivessel disease with multiple foci of calcification in the LAD, RCA, and LCX of approximately 50-70% luminal stenosis. The severity of stenosis may be inaccurate due to severity of calcification. -CAD-RADS 4B. Management recommendations per ACC/AHA guidelines*, as clinically appropriate. -Circumferential pericardial effusion is present. Correlation with TTE is recommended. *Recommendations: CAD RADS 0: Reassurance. Consider non-atherosclerotic causes of chest pain. CAD RADS 1: Consider non-atherosclerotic causes of chest pain. Consider preventive therapy and risk factor modification. CAD RADS 2: Consider non-atherosclerotic causes of chest pain. Consider preventive therapy and risk factor modification, particularly for patients with nonobstructive plaque in multiple segments. CAD RADS 3: Consider further functional testing. Consider symptom-guided anti-ischemic and preventive pharmacotherapy as well as risk factor modification per published guideline statements. CAD RADS 4A: Consider further functional testing or invasive coronary angiography with revascularization per published guideline statements. Consider symptom-guided anti-ischemic and preventive pharmacotherapy as well as risk factor modification per published guideline statements. CAD RADS 4B: Invasive coronary angiography recommended with revascularization per published guideline statements. Consider symptom-guided anti-ischemic and preventive pharmacotherapy as well as risk factor modification per published guideline statements. CAD RADS 5: Consider invasive angiography and/or viability assessment with revascularization per published guideline statements. Consider symptom-guided anti-ischemic and preventive pharmacotherapy as well as risk factor modification per published guideline statements. CRITICAL RESULT None COMMUNICATION Per this written report The coronary and cardiac findings of this CCTA were reviewed, reported, and signed by Abel Khanna MD (Technical Director) Conclusion Electronically signed by : Lisa Khanna MD 07/04/2023 16:21:21
[2023-07-01 09:52] VITALS: BMI 29.7
[2023-07-01 09:53] VITALS: BP 107/63; PULSE 49; RESP 18; TEMP 36.6; O2SAT 94
[2023-07-01 10:01] LABS: Chloride 107 mmol/L (98-107); Potassium 3.1 mmoL/L (3.5-5.1); Sodium 141 mmol/L (136-145)
[2023-07-01 10:04] LABS: Blood Urea Nitrogen 15 mg/dl (7-17); Creatinine Clearance Estimated 67 mL/min (50-200); Estimated Glomerular Filt Rate 63 ml/min (>60); GFR (African American) 76 ML/MIN (>60)
[2023-07-01 10:05] LABS: Anion Gap 10.1 mEq/L (5-15); Calcium 7.5 mg/dl (8.4-10.2); Carbon Dioxide 27 mmol/L (22.0-30.0); Glucose 132 mg/dl (74-100)
[2023-07-01 10:18] VITALS: BP 105/63; PULSE 47; RESP 18; O2SAT 94
[2023-07-01] MEDS: NITROGLYCERIN 0.4MG SL TABLET 0.400000000000000022 MG SL (10:18)
[2023-07-01 10:25] VITALS: BP 122/61; PULSE 48; RESP 18; O2SAT 94
[2023-07-01] MEDS: 0.9 % SODIUM CHLORIDE 50 ML VIAL IV (10:30)
[2023-07-01] MEDS: SODIUM CHLORIDE 0.9% 10ML SYR (RAD ONLY) 10 ML IV (10:30)
[2023-07-01] MEDS: IOPAMIDOL-370 (76%);100ML BOTTLE 85 ML IV (10:31)
[2023-07-01 10:40] VITALS: BP 91/56; PULSE 47; RESP 18; O2SAT 97
[2023-07-01 10:53] VITALS: BP 122/61; PULSE 48; RESP 18; O2SAT 94
== END 2023-07-01 23:59 | disposition home or self-care (01) ==
PROVIDERS: PCP Family Medicine; Visit Provider Physician Assistant
DX: E78.5 Hyperlipidemia, unspecified (principal); G47.33 Obstructive sleep apnea (adult) (pediatric); I10 Essential (primary) hypertension; I25.10 Atherosclerotic heart disease of native coronary artery without angina pectoris; R06.02 Shortness of breath; R06.09 Other forms of dyspnea; Z01.810 Encounter for preprocedural cardiovascular examination; Z72.0 Tobacco use; Z99.89 Dependence on other enabling machines and devices
CPT/HCPCS: 75571; 75574; 80048; Q9967

== ENCOUNTER 2023-07-23 10:22 | Day surgery (SDC) | payer MEDICARE, MEDICAID, SELFPAY ==
[2023-07-23 10:40] VITALS: BP 147/87; PULSE 62; RESP 18; TEMP 36.9; O2SAT 96; BMI 28.3
--- NOTE | 2023-07-23 10:49 | EXP.PAIN.PRO ---
Procedure Date: 07/23/23 Time: 10:40 Anesthesiologist:: Wilian Griggs CRNA Complications:: None Pre-procedure Diagnosis:: Degenerative disc lumbar spine multilevels. Lumbar radiculopathy. Post-procedure Diagnosis:: Same. Indications for Procedure:: Patient is a very pleasant 67-year-old female comes our clinic today for lumbar epidural steroid injection at the L4-5 level. Patient reports low back pain that she describes as constant, dull, aching. Patient also reporting bilateral hip and leg radicular symptoms. She rates her pain 6/10. Procedure Details:: Procedure: Lumbar epidural steroid injection under fluoroscopy Informed consent was obtained and the risks and benefits of the procedure were explained to the patient. The patient was taken to the procedure room and noninvasive monitors placed, including noninvasive blood pressure cuff and pulse oximeter. The back was viewed using C-arm Fluoroscopy and prepped using Chloraprep as a cleansing solution and the L4-L5 interspace was palpated. Skin and subcutaneous tissues were anesthetized using lidocaine 1.5% and a 25-gauge needle. After this, an 18-gauge Touhy epidural needle was placed into the L4-L5 interspace and advanced using fluoroscopic guidance and loss of resistance to air until the epidural space was encountered. After confirmation of needle placement in the epidural space, with dye, a solution containing normal saline, 3 mL and Depo-Medrol 80 mg were incrementally injected into the lumbar epidural space. The patient tolerated the procedure well with no complications. The patient was observed in the Pain Clinic and then discharged home neurologically intact. Plan and Disposition:: Patient was discharged without incident.
[2023-07-23] MEDS: methylPREDNISolone ACETATE 80MG/ML VIAL 80 MG (10:55)
[2023-07-23 11:00] VITALS: BP 126/72; PULSE 59; RESP 16; O2SAT 96
[2023-07-23 11:10] VITALS: BP 155/70; PULSE 64; RESP 18; O2SAT 94
[2023-07-23 11:12] VITALS: BP 155/70; PULSE 64; RESP 18; O2SAT 94
== END 2023-07-23 11:00 | disposition home or self-care (01) ==
PROVIDERS: PCP Family Medicine; Visit Provider Nurse Anesthetist, Certified Registered
DX: M51.16 Intervertebral disc disorders with radiculopathy, lumbar region (principal)
CPT/HCPCS: 62323; J1040

== ENCOUNTER 2023-07-24 19:30 | Outpatient (CLI) | payer MEDICARE, MEDICAID, SELFPAY | END 2023-07-24 23:59 | LOC: LAB.DROPOF 19:30 | PROVIDERS: PCP Family Medicine; Visit Provider Family Medicine | DX: N39.0 Urinary tract infection, site not specified (principal); B96.1 Klebsiella pneumoniae [K. pneumoniae] as the cause of diseases classified elsewhere | CPT/HCPCS: 87086 ==

== ENCOUNTER 2023-07-30 08:36 | Day surgery (SDC) | payer MEDICARE, MEDICAID, SELFPAY ==
[2023-07-30] VITALS (14 sets, daily range): BP systolic 125–200; BP diastolic 70–120; PULSE 45–78; RESP 15–20; TEMP 36.7–36.9; O2SAT 94–107; BMI 28.8
--- NOTE | 2023-07-30 07:04 | IR_ITS ---
APPROVED REPORT Patient Location: Outpatient PROCEDURES Left heart catheterization Left ventriculogram Selective coronary angiogram FFR to the right coronary INDICATION Abnormal CCTA, Calcium score greater than 1000, Angina pectoris Informed consent was obtained prior to the procedure. COMPLICATIONS NONE Estimated Blood Loss: LESS THAN 10 ML TECHNIQUE One percent lidocaine used to anesthetize the right anterior aspect of the wrist. The right radial artery was accessed via the Seldinger technique. A 6 Lao sheath was placed in the right radial artery. 2.5 mg of Verapamil, 800 mcg of nitroglycerin, 1mg Lidocaine and 5000 U Heparin were given through the arterial sheath. The papa catheter was also used to perform left heart catheterization, left ventriculogram and selective coronary angiogram. At the end of the procedure the sheath was removed good hemostasis was achieved using Traclet band, patient was transferred to the postop holding area in stable condition. ANGIOGRAPHIC RESULTS The left main artery Normal The left anterior descending artery Has proximal 10% stenoses with mid vessel 30% stenoses The circumflex artery Is a nondominant vessel and has mid vessel 40% stenoses The right coronary artery Is a large dominant vessel has a proximal mostly concentric 50% stenosis with diffuse mid vessel and distal 30% stenoses. Distally there is extensive extravascular calcification identified The [facility] ventriculogram reveals Normal 65% The left ventricular end-diastolic pressure 15 mmHg FFR index of the proximal right coronary artery was 0.91 IMPRESSION Coronary artery disease as described above Normal ejection fraction Normal LVEDP PLAN 1. Aggressive medical management with aggressive risk factor modification Electronically signed by : Altaf Mak MD 07/30/2023 11:41:29
[2023-07-30 09:12] LABS: Basophils % 0.4 % (0.1-2.0); Eosinophils # 0.1 K/mm3 (0.0-0.4); Eosinophils % 2.5 % (0.1-12.0); Hematocrit 35.6 % (37.0-47.0); Hemoglobin 11.4 g/dL (12.2-16.2); Lymphocytes # 1.1 K/mm3 (0.7-4.5); Lymphocytes % 23.5 % (10-50); Mean Corpuscular HGB Conc 31.9 g/dL (31.8-35.4); Mean Corpuscular Volume 90.7 fl (81-99); Mean Platelet Volume 8.7 fl (7.4-10.4); Monocytes # 0.2 K/mm3 (0.1-1.0); Monocytes % 5.1 % (1.7-9.3); Neutrophils # 3.2 K/mm3 (1.8-7.8); Neutrophils % 68.4 % (37.0-80.0); Platelet Count 300 K/mm3 (142-424); Red Blood Count 3.92 M/mm3 (4.20-5.40); Red Cell Distribution Width 17.3 % (11.5-17.5); White Blood Count 4.7 K/mm3 (4.8-10.8)
[2023-07-30 09:36] LABS: Anion Gap 13.1 mEq/L (5-15); Blood Urea Nitrogen 18 mg/dl (7-17); Calcium 8.6 mg/dl (8.4-10.2); Carbon Dioxide 21 mmol/L (22.0-30.0); Chloride 112 mmol/L (98-107); Creatinine Clearance Estimated 65 mL/min (50-200); Estimated Glomerular Filt Rate 72 ml/min (>60); GFR (African American) 87 ML/MIN (>60); Glucose 96 mg/dl (74-100); Potassium 4.1 mmoL/L (3.5-5.1); Sodium 142 mmol/L (136-145)
[2023-07-30] MEDS: HEPARIN 1,000 UNITS/500ML NS (CATH LAB) 3000 UNIT IV (10:55)
[2023-07-30] MEDS: 0.9 % SODIUM CHLORIDE 500 ML 25 ML IV (10:55)
[2023-07-30] MEDS: LIDOCAINE 1% 10ML MDV 20 ML IJ (10:55)
[2023-07-30] MEDS: HEPARIN 1,000 UNITS/ML 10ML VIAL (CATH LAB) 10000 UNIT IV (10:56)
[2023-07-30] MEDS: VERAPAMIL 2.5MG/ML 2ML VIAL 2.5 MG IV (10:56)
[2023-07-30] MEDS: NITROGLYCERIN 800MCG/8ML SYR (CATH LAB) 800 MCG IA (10:56)
[2023-07-30] MEDS: diphenhydrAMINE 50MG/ML VIAL 50 MG IV (10:56)
[2023-07-30] MEDS: MIDAZOLAM HCL 1MG/1ML 5ML VIAL 1 MG IV (11:23)
[2023-07-30] MEDS: FENTANYL 100MCG/2ML VIAL 25 MCG IV (11:23)
--- NOTE | 2023-07-30 11:23 | CA_ITS ---
APPROVED REPORT EXAM: Comprehensive 2D, Doppler, and color-flow Echocardiogram Observer Gravity Prospecting: Magda Lorenz RVT Ht: 5 ft 3 in Wt: 164lbs BSA: 1.78 BP: 124/70 mmHg Indications: PERICARDIAL EFFUSION,CAD,PRAKASH,PRE-OP,SMOKER,SOA,COPD,HTN,HLD,EDEMA 2D Dimensions LA Volume 32.70 mL LA Volume Index 18.37 mL/m2 (M/F) 16-34 M-Mode Dimensions RVDd 3.13 cm (0.9-2.6) LA Diam 2.58 cm (1.9-4.0) LVDd 4.78 cm (3.5-5.7) LVDs 3.41 cm (3.5-5.7) IVSd 1.41 cm (0.6-1.1) PWd 0.60 cm (0.6-1.1) EF (Teich) 55.10% FS 28.70% EDV (Teich) 106.50 mL TAPSE 2.94 (<1.7) ESV (Teich) 47.80 mL LV Diastology E Decel Time 330 (160-240 msec) E/A Ratio 0.6 Aortic Valve SLOANE Index 1.27 cm2/m2 AoV Peak Renny. 175.0 (50-130 cm/s) AI PHT 584.00 ms AO Peak GR. 12.30 mmHg AO Mean GR. 5.80 (<5 mmHg) AO VTI 37.3 (18-25 cm) SLOANE (VTI) 2.32 (2.5-4.5 cm2) Mitral Valve MV E Max Renny. 54.0 (40-130 cm/s) MV A Velocity 93.0 (40-130 cm/s) E/A Ratio 0.58 MV PHT 97.0 ms Pulmonary Valve PV Peak Velocity 90.0 (50-150 cm/s) Tricuspid Valve TR P. Velocity 275.00 cm/s RAP Estimate 10.00 mmHg RVSP 40.20 mmHg Left Ventricle The left ventricle is normal size. The left ventricular systolic function is normal. The left ventricular ejection fraction is within the normal range. There is increased LV wall thickness. There is normal LV segmental wall motion. Transmitral Doppler flow pattern suggests impaired LV relaxation. LVEF is 55%. Right Ventricle The right ventricle is normal size. The right ventricular systolic function is normal. Atria The left atrium size is normal. The right atrium size is normal. There is no Doppler evidence of interatrial shunt. Aortic Valve The aortic valve is mildly thickened. There is no aortic valvular stenosis. Mild aortic regurgitation. Mitral Valve The mitral valve leaflets are mildly thickened. No evidence of mitral valve stenosis. Trace mitral regurgitation. Tricuspid Valve The tricuspid valve leaflets are thin and pliable. Mild tricuspid regurgitation. RVSP is 25-30 mmHg. Pulmonic Valve The pulmonary valve is normal in structure. Trace pulmonic regurgitation. Great Vessels The aortic root is not well-visualized. IVC is normal in size and collapses >50% with inspiration. Pericardium There is no pericardial effusion. Other Information Study Quality: Fair Conclusion Normal biventricular systolic function. Mild AI. Mild TR. Electronically signed by : Lisa Khanna MD 08/03/2023 22:30:47
[2023-07-30] MEDS: IOPAMIDOL-370 (76%);100ML BOTTLE 60 ML IV (12:09)
--- NOTE | 2023-07-30 15:14 | SUR.PHASEII ---
Dr Mak notified of patients BP elevated, new orders recieved. Patient instructed on new medications.
--- NOTE | 2023-07-30 15:19 | SUR.PHASEII ---
Patient states that she will not take anything for BP because her pressure is not elevated at home.
== END 2023-07-30 15:27 | disposition home or self-care (01) ==
PROVIDERS: PCP Family Medicine; Visit Provider Internal Medicine
DX: I31.39 Other pericardial effusion (noninflammatory) (principal); I25.118 Atherosclerotic heart disease of native coronary artery with other forms of angina pectoris; R93.1 Abnormal findings on diagnostic imaging of heart and coronary circulation; R06.02 Shortness of breath; Z79.899 Other long term (current) drug therapy; Z87.891 Personal history of nicotine dependence; E55.9 Vitamin D deficiency, unspecified; J44.9 Chronic obstructive pulmonary disease, unspecified; I11.9 Hypertensive heart disease without heart failure
CPT/HCPCS: 80048; 85025; 93306; 93458; 93571; 99152; C1725; C1769; J1644; Q9967

== ENCOUNTER → 2023-08-09 10:39 | Outpatient (POV) | payer MEDICARE, MEDICAID, SELFPAY ==
--- NOTE | 2023-08-09 10:59 | EXP.PAIN.SOA ---
[facility] Pain Management SOAP Note Subjective:: Patient is a pleasant 67-year-old female who presents today for follow-up of lumbar epidural steroid injection L4-L5 on 07/23/2023. We are currently treating the patient for degenerative disc disease of lumbar spine with lumbar radiculopathy symptoms, low back pain, mid back pain, chronic compression fractures, right hip pain, chronic pain syndrome, mid back pain. Today she rates her pain an 5out of 10. She states she has had at least 50% improvement following this injection and it is providing good relief even now. Patient states she has been able to increase her activity and walking following this injection and that her back is done much better with overall improved function. Today she does state that her pain is up and around. Back at the area where she does have chronic pain. Patient does describe this as an achy, throbbing sensation with numbness and tingling that radiates down. Patient does state that the pain interferes with her ability perform activities of daily living such as cooking and cleaning. She states frequently due to the pain at this area she has difficulty performing even simple tasks such as brushing her hair. She has previously had thoracic epidural back in March that did provide 60% improvement that lasted more than 3 months. She is interested in repeating this injection. Patient is currently managed with Percocet 10 mg 3 times a day from her PCP and compounded cream, tizanidine 4 mg 3 times a day and ropinirole 0.25 mg at bedtime from our office. She denies any side effects from this medication however she is requesting refills on all of the cream, muscle relaxer and restless leg medications today her Joshua has been reviewed and is appropriate. Review of Systems: General: No recent weight changes, no fever, no sleep disturbances Respiratory: No cough, no shortness of air, no recurring pulmonary infections Cardiovascular/peripheral vascular: No chest pain, no palpitations, no edema, no shortness of breath Gastrointestinal: No new onset incontinence, normal bowel movements reported Genitourinary: No new onset incontinence Musculoskeletal: Mid back pain Psychiatric: [Normal mood/affect] Neurological: [Denies weakness in extremities], [denies balance issues] Objective:: Physical Exam: General: Alert and oriented x3, no acute distress, pleasant and cooperative Lungs: Respirations even and unlabored, symmetrical chest expansion Eyes: PERRL Musculoskeletal: Flexion and extension of thoracic [spine] somewhat guarded secondary to pain, [antalgic gait noted] Neurological: Speech clear, no gross sensory deficit Assessment:: Degenerative disc disease of lumbar spine with lumbar radiculopathy symptoms, low back pain, mid back pain, chronic compression fractures, right hip pain, chronic pain syndrome, mid back pain Plan:: Patient is experiencing worsening pain in her mid back with limited range of motion and tenderness with palpation. I have discussed with patient that she may benefit from a repeat thoracic epidural steroid injection. Risk and benefits were discussed with patient and she would like to proceed forward with this plan of care. Patient previously had her last thoracic epidural back in March with 60% relief lasting more than 3 months. Patient has tried and failed conservative therapy such as oral medication, heat and ice, topicals, past physical therapy. Will also refill the patient's compounded cream, tizanidine 4,000,003 times a day and ropinirole 0.25 mg at bedtime and provide a 1 month supply of these medications. Patient will be scheduled for a thoracic epidural steroid injection T10-T11 under fluoroscopy. Patient is currently on blood thinners of Eliquis that is written by Dr. Medina's office. We will reach out to him and confirm she can stop this medication prior to this injection. Patient has been instructed to contact the clinic with any concerns before the next appointment. Dr. Brown has reviewed this note and agrees with this plan of care. This note was dictated using voice recognition software and make contain errors or omissions. [facility] Disclaimer: The information contained in this section may have been updated after the patient was seen, as this information can be updated by other users. Medical History CAD (coronary artery disease) Cataract Claudication COPD (chronic obstructive pulmonary disease) Coronary artery calcification seen on CT scan Dyspnea on exertion Edema Elevated left ventricular end-diastolic pressure (LVEDP) Hemorrhoids HHD (hypertensive heart disease) HTN (hypertension) Hyperlipidemia (~11/21/17) Hypokalemia Numbness PRAKASH on CPAP Pleural effusion, left SOB (shortness of breath) Stopped smoking with greater than 30 pack year history Thrombosis Tobacco abuse Vitamin D deficiency (~11/21/17) Surgical History H/O: hysterectomy History of carpal tunnel release History of cholecystectomy History of intestinal surgery Family History Other No significant family history Social History Smoking Status: Never smoker second hand exposure: Yes alcohol intake: never substance use type: marijuana current occupational status: disabled Travel in the last 8 weeks: None household members: spouse housing: house current occupational exposures/hazards: No caffeine: No
[2023-08-09 11:46] VITALS: BP 108/70; PULSE 49; RESP 20; O2SAT 98; BMI 28.5
== END | disposition home or self-care (01) ==
PROVIDERS: PCP Family Medicine; Visit Provider Nurse Practitioner Family
DX: M84.48XS Pathological fracture, other site, sequela; M25.551 Pain in right hip; G89.4 Chronic pain syndrome; M54.6 Pain in thoracic spine
CPT/HCPCS: 99212; G0463

== ENCOUNTER 2023-08-27 07:49 | Day surgery (SDC) | payer MEDICARE, MEDICAID, SELFPAY ==
[2023-08-27 08:22] VITALS: BP 103/69; PULSE 55; RESP 16; TEMP 36.4; O2SAT 90; BMI 29.2
[2023-08-27] MEDS: methylPREDNISolone ACETATE 80MG/ML VIAL 80 MG (08:40)
[2023-08-27 08:43] VITALS: BP 109/43; PULSE 43; RESP 16; O2SAT 90
[2023-08-27 08:46] VITALS: BP 104/54; PULSE 44; RESP 18; O2SAT 99
[2023-08-27 08:47] VITALS: BP 104/54; PULSE 44; RESP 18; O2SAT 99
--- NOTE | 2023-08-27 08:58 | P.PCN_ITS ---
Procedure Date: 08/27/23 Time: 08:30 Anesthesiologist:: Wilian Griggs CRNA Complications:: None Pre-procedure Diagnosis:: Degenerative disc thoracic spine. Thoracic radiculopathy. Post-procedure Diagnosis:: Same. Indications for Procedure:: Patient is a very pleasant 67-year-old female comes our clinic today for T10-T11 thoracic epidural steroid injection. Patient has had this in the past and reports 5 to 6 months of significant improvement terms of her overall thoracic back pain as well as thoracic radiculopathy. She rates her pain today 12/01. Procedure Details:: Procedure:Thoracic epidural steroid injection under fluoroscopy Informed consent was obtained and the risks and benefits of the procedure were explained to the patient. The patient was taken to the procedure room and noninvasive monitors placed, including noninvasive blood pressure cuff and pulse oximeter. The back was viewed using C-Arm fluoroscopy and prepped using Betadine as a cleansing solution and the T10-11 interspace was palpated. Skin and subcutaneous tissues were anesthetized using lidocaine 1.5% and a 25-gauge needle. After this, an 18-gauge Touhy epidural needle was placed into the T10-11 interspace and advanced using fluoroscopic guidance and loss of resistance to air until the epidural space was encountered. After confirmation of needle placement in the epidural space, with dye, a solution containing lidocaine 1.5%, 4 mL and Depo-Medrol 80 mg were incrementally injected into the thoracic epidural space. The patient tolerated the procedure well with no complications. The patient was observed in the Pain Clinic and then discharged home chuck rologically intact. Plan and Disposition:: Patient was discharged without incident.
== END 2023-08-27 08:43 | disposition home or self-care (01) ==
LOC: SC.PAINP 07:50
PROVIDERS: PCP Family Medicine; Visit Provider Nurse Anesthetist, Certified Registered
DX: M51.14 Intervertebral disc disorders with radiculopathy, thoracic region (principal)
CPT/HCPCS: 62321; J1040

== ENCOUNTER 2023-08-27 12:00 | Emergency (ER) | payer MEDICARE, MEDICAID, SELFPAY ==
[2023-08-27] VITALS (12 sets, daily range): BP systolic 103–199; BP diastolic 63–85; PULSE 40–49; RESP 16; TEMP 36.6; O2SAT 97–100; BMI 29.2
--- NOTE | 2023-08-27 12:12 | ECG_ITS ---
APPROVED REPORT Exam: Resting ECG HR:42 bpm ECG Measurements Heart Rate 42 AXES NH 173 P 64 QRSd 88 QRS 35 QT 504 T 61 QTc 444 Conclusion SINUS BRADYCARDIA LOW QRS VOLTAGE [QRS DEFLECTION < 0.5/1.0 mV IN LIMB/CHEST LEADS] ANTEROSEPTAL MYOCARDIAL INFARCTION , OF INDETERMINATE AGE [40+ ms Q WAVE IN V1-V4] ABNORMAL ECG INTERPRETATION BASED ON A DEFAULT AGE OF 40 YEARS UNCONFIRMED REPORT Electronically signed by : JEFFREY JARAMILLO, 08/28/2023 06:15:49
[2023-08-27 12:52] LABS: Basophils % 0.5 % (0.1-2.0); Eosinophils # 0.1 K/mm3 (0.0-0.4); Eosinophils % 1.6 % (0.1-12.0); Hematocrit 33.7 % (37.0-47.0); Hemoglobin 10.5 g/dL (12.2-16.2); Lymphocytes # 0.7 K/mm3 (0.7-4.5); Lymphocytes % 14.7 % (10-50); Mean Corpuscular HGB Conc 31.1 g/dL (31.8-35.4); Mean Corpuscular Hemoglobin 29.1 pg (27.0-31.2); Mean Corpuscular Volume 93.6 fl (81-99); Mean Platelet Volume 8.3 fl (7.4-10.4); Monocytes # 0.2 K/mm3 (0.1-1.0); Monocytes % 4.5 % (1.7-9.3); Neutrophils # 3.9 K/mm3 (1.8-7.8); Neutrophils % 78.6 % (37.0-80.0); Platelet Count 208 K/mm3 (142-424); Red Cell Distribution Width 17.7 % (11.5-17.5); White Blood Count 4.9 K/mm3 (4.8-10.8)
--- NOTE | 2023-08-27 13:06 | PC.NURSE ---
ROUNDED ON PT, WARM BLANKET PROVIDED. CALL LIGHT WITHIN REACH
[2023-08-27 13:15] LABS: Alanine Aminotransferase 23 U/L (12-78); Albumin Level 3.3 g/dl (3.5-5.0); Albumin/Globulin Ratio 1.1 (1.1-1.8); Alkaline Phosphatase 65 U/L (38-126); Anion Gap 12.5 mEq/L (5-15); Aspartate Amino Transferase 25 U/L (14-36); Bilirubin,Total 0.3 mg/dl (0.2-1.3); Blood Urea Nitrogen 16 mg/dl (7-17); Calcium 8.3 mg/dl (8.4-10.2); Carbon Dioxide 15 mmol/L (22.0-30.0); Chloride 114 mmol/L (98-107); Creatinine Clearance Estimated 60 mL/min (50-200); Estimated Glomerular Filt Rate 50 ml/min (>60); GFR (African American) 60 ML/MIN (>60); Glucose 127 mg/dl (74-100); Potassium 3.5 mmoL/L (3.5-5.1); Sodium 138 mmol/L (136-145); Total Protein,Serum 6.3 g/dl (6.3-8.2)
--- NOTE | 2023-08-27 13:40 | PC.NURSE ---
No needs voiced at this time. Call light within reach.
--- NOTE | 2023-08-27 14:11 | XR_ITS ---
FINAL REPORT CLINICAL HISTORY: hypotension COMPARISON: 07/16/2019 FINDINGS: SINGLE VIEW CHEST The heart is normal in size. The mediastinum is unremarkable. There are bibasilar opacities, may represent atelectasis or pneumonia. There is no pneumothorax. IMPRESSION: Bibasilar atelectasis versus pneumonia. Reviewed, Interpreted and Dictated by Dez Low III, MD Transcribed by Maddie Zimmerman Authenticated and [facility]
--- NOTE | 2023-08-27 14:15 | PC.NURSE ---
Pt provided with warm blanket. No other needs voiced. Call light remains within reach.
[2023-08-27 14:34] LABS: Troponin I < 0.01 ng/ml (0.00-0.034)
--- NOTE | 2023-08-27 14:55 | PC.NURSE ---
No needs voiced and milli light within reach.
--- NOTE | 2023-08-27 15:13 | ED_ITS ---
Discharge Plan Disposition Patient Disposition: Home, Self-Care Condition: Good Prescriptions Prescriptions: No Action ondansetron 4 mg tablet,disintegrating 4 mg PO Q8H Qty: 90 0RF oxycodone-acetaminophen [Percocet] 5-325 mg tablet 1 tab PO Q8H PRN (Reason: pain) Qty: 45 0RF ciprofloxacin HCl [Cipro] 500 mg tablet 500 mg PO BID Qty: 20 0RF apixaban 5 mg tablet 5 mg PO BID Qty: 60 10RF bupropion HCl 75 mg tablet See Rx Instructions .ROUTE .COMPLEX Qty: 120 10RF Rx Instructions: TAKE 4 TABLETS BY MOUTH IN THE MORNING AND 2 TABLETS AT NOON (TAKE 6 HOURS APART) ergocalciferol (vitamin D2) [Drisdol] 1,250 mcg (50,000 unit) capsule 1,250 mcg PO WEEKLY Qty: 7 10RF levothyroxine 50 mcg tablet See Rx Instructions .ROUTE .COMPLEX Qty: 90 3RF Rx Instructions: TAKE ONE TABLET BY MOUTH ONCE A DAY FOR THYROID rosuvastatin 20 mg tablet See Rx Instructions .ROUTE .COMPLEX Qty: 90 3RF Rx Instructions: TAKE ONE TABLET BY MOUTH ONCE A DAY Stiolto Respimat 2.5-2.5 mcg/actuation mist 2 puff inhalation DAILY Qty: 4 10RF trazodone 100 mg tablet See Rx Instructions .ROUTE .COMPLEX Qty: 180 3RF Rx Instructions: TAKE TWO TABLETS BY MOUTH AT BEDTIME pantoprazole 40 mg tablet,delayed release (DR/EC) See Rx Instructions .ROUTE .COMPLEX Qty: 180 3RF Rx Instructions: TAKE ONE TABLET BY MOUTH TWICE A DAY FOR GERD nitrofurantoin monohyd/m-cryst 100 mg capsule See Rx Instructions .ROUTE .COMPLEX Qty: 100 3RF Rx Instructions: twice a day for 10 days, then once a day on a regular basis to prevent uti gabapentin 100 mg capsule 100 mg PO BID Qty: 60 4RF potassium chloride [Klor-Con M20] 20 mEq tablet,ER particles/crystals 40 meq PO DAILY Qty: 30 2RF albuterol sulfate 90 mcg/actuation HFA aerosol inhaler See Rx Instructions .ROUTE .COMPLEX Qty: 18 0RF Dose Instruction: INHALE 2 PUFFS BY MOUTH FOUR TIMES A DAY NEEDED FOR SHORTNESS OF BREATH OR WHEEZING Rx Instructions: INHALE 2 PUFFS BY MOUTH FOUR TIMES A DAY NEEDED FOR SHORTNESS OF BREATH OR WHEEZING alendronate 70 mg tablet See Rx Instructions .ROUTE .COMPLEX Rx Instructions: TAKE ONE TABLET BY MOUTH EVERY WEEK promethazine 25 mg tablet 25 mg PO Q6H PRN (Reason: sedation) Qty: 10 0RF tizanidine [Zanaflex] 4 mg tablet 4 mg PO TID Qty: 90 2RF ropinirole 0.25 mg tablet 0.25 mg PO HS Qty: 30 2RF Rx Instructions: administer 1-3 hours before bedtime carvedilol [Coreg] 12.5 mg Tablet 12.5 mg PO BID Qty: 60 3RF Rx Instructions: must administer with a meal/food Referrals Follow up/Referrals: Roman Medina MD [Primary Care Provider] - See instructions Activity Restrictions/Add. Instructions Additional Instructions/Restrictions: You were evaluated in the emergency department today. At this time, your blood pressure here is not low. I recommend keeping a log of your blood pressures at home, taking it twice a day and when you take different medications to see how it affects you. Please present to primary care provider with this log of blood pressures. They can make medication adjustments as needed. Return to the emergency department for significant symptoms, such as severe lightheadedness, fainting, or other issues. Clinical Impressions Clinical Impression: Blood pressure instability Instructions Patient Instructions: DI for High Blood Pressure Discharge ED Provider: Meaghan Cai General Adult HPI General Chief complaint: Dizziness Stated complaint: low bp, soa, dizzy Time Seen by Provider: 08/27/23 12:29 Mode of Arrival: Wheelchair Source of Information: Patient Limitations: No Limitations Description of Symptoms (Recalled from ER Triage Doc. by RN): pt presents to ED stating she checked her BP at home d/t feeling light headed and it was low. pt states she was here earlier this date in pain management and her bp was good. pt states recently her PCP changed her BP medicated by adding Losartan 50 mg. Related Data Home Medications Medication Instructions Recorded Confirmed alendronate 70 mg tablet See Rx Instructions .Route 03/04/23 09/02/23 .COMPLEX OSTEOARTHRITIS Previous Rx's Medication Instructions Recorded apixaban 5 mg tablet 5 mg PO BID . #60 tabs 02/01/23 bupropion HCl 75 mg tablet See Rx Instructions .Route 02/01/23 .COMPLEX . #120 tabs ergocalciferol (vitamin D2) 1,250 1,250 mcg PO WEEKLY . #7 caps 02/01/23 mcg (50,000 unit) capsule (Drisdol) levothyroxine 50 mcg tablet See Rx Instructions .Route 02/01/23 .COMPLEX . #90 tabs rosuvastatin 20 mg tablet See Rx Instructions .Route 02/01/23 .COMPLEX Cholesterol #90 tabs tiotropium 2.5 mcg-olodaterol 2.5 2 puff inhalation DAILY Breathing 02/01/23 mcg/actuation mist for inhalation problems #4 grams (Stiolto Respimat) trazodone 100 mg tablet See Rx Instructions .Route 02/01/23 .COMPLEX SLEEP #180 tabs promethazine 25 mg tablet 25 mg PO Q6H PRN sedation #10 tabs 03/27/23 pantoprazole 40 mg tablet,delayed See Rx Instructions .Route 04/08/23 release .COMPLEX STOMACH #180 tabs ondansetron 4 mg disintegrating 4 mg PO Q8H Nausea & vomiting #90 05/29/23 tablet tabs potassium chloride 20 mEq 40 meq (2 x 20 mEq) PO DAILY #30 07/01/23 tablet,extended tabs release(part/cryst) (Klor-Con M) nitrofurantoin See Rx Instructions .Route 07/24/23 monohydrate/macrocrystals 100 mg .COMPLEX #100 caps capsule carvedilol 12.5 mg tablet (Coreg) 12.5 mg PO BID #60 tabs 07/30/23 albuterol sulfate 90 mcg/actuation See Rx Instructions .Route 08/01/23 aerosol inhaler .COMPLEX #18 grams gabapentin 100 mg capsule 100 mg PO BID #60 caps 08/07/23 ropinirole 0.25 mg tablet 0.25 mg PO HS #30 tabs 08/09/23 tizanidine 4 mg tablet (Zanaflex) 4 mg PO TID . #90 tabs 08/09/23 ciprofloxacin HCl 500 mg tablet 500 mg PO BID #20 tabs 08/22/23 (Cipro) oxycodone-acetaminophen 5 mg-325 1 tab PO Q8H PRN pain #45 tabs 09/02/23 mg tablet (Percocet) Allergies Allergy/AdvReac Type Severity Reaction Status Date / Time codeine Allergy Intermediate I-HIVES Verified 09/02/23 09:16 sulfamethoxazole Allergy Intermediate I-HIVES Verified 09/02/23 09:16 [From Septra] trimethoprim [From Septra] Allergy Intermediate I-HIVES Verified 09/02/23 09:16 ibuprofen [IBUPROFEN] Allergy Unknown VOMITING Verified 09/02/23 09:16 [facility] Disclaimer: The information contained in this section may have been updated after the patient was seen, as this information can be updated by other users. Medical History Thrombosis Hemorrhoids Cataract Hypokalemia Claudication Pleural effusion, left Stopped smoking with greater than 30 pack year history Dyspnea on exertion Edema HHD (hypertensive heart disease) Elevated left ventricular end-diastolic pressure (LVEDP) CAD (coronary artery disease) Numbness Coronary artery calcification seen on CT scan COPD (chronic obstructive pulmonary disease) Tobacco abuse PRAKASH on CPAP SOB (shortness of breath) HTN (hypertension) Vitamin D deficiency (~11/21/17) Hyperlipidemia (~11/21/17) Surgical History History of carpal tunnel release History of cholecystectomy H/O: hysterectomy History of intestinal surgery Family History Other No significant family history Social History Smoking Status: Current some day smoker tobacco type: cigarettes packs per day: 1 second hand exposure: Yes alcohol intake: never substance use type: marijuana current occupational status: other Travel in the last 8 weeks: None household members: spouse housing: house current occupational exposures/hazards: No caffeine: No Medical Decision Making Vital Signs: 08/27/23 12:01 08/27/23 13:06 08/27/23 13:30 Temperature Temperature Source Pulse Rate 41 L 40 L Pulse Rate [Right Radial] 46 L Respiratory Rate 16 16 Blood Pressure 103/85 L 123/68 Blood Pressure [Right Arm] 110/63 Blood Pressure Mean 90 99 Blood Pressure Mean [Right Arm] 78 Blood Pressure Source Blood Pressure Source [Right Arm] Automatic Cuff Blood Pressure Position Blood Pressure Position [Right Arm] Sitting 02 Sat by Pulse Oximetry 100 98 97 Oxygen Delivery Method Room Air 08/27/23 14:00 08/27/23 14:10 08/27/23 14:12 Temperature Temperature Source Pulse Rate 41 L 42 L 42 L Pulse Rate [Right Radial] Respiratory Rate 16 16 16 Blood Pressure 134/72 122/63 124/76 Blood Pressure [Right Arm] Blood Pressure Mean 95 96 100 Blood Pressure Mean [Right Arm] Blood Pressure Source Blood Pressure Source [Right Arm] Blood Pressure Position Blood Pressure Position [Right Arm] 02 Sat by Pulse Oximetry 100 98 99 Oxygen Delivery Method 08/27/23 14:30 08/27/23 15:00 08/27/23 15:30 Temperature Temperature Source Pulse Rate 40 L 41 L 42 L Pulse Rate [Right Radial] Respiratory Rate 16 Blood Pressure 131/72 118/74 119/72 Blood Pressure [Right Arm] Blood Pressure Mean 105 Blood Pressure Mean [Right Arm] Blood Pressure Source Blood Pressure Source [Right Arm] Blood Pressure Position Blood Pressure Position [Right Arm] 02 Sat by Pulse Oximetry 99 99 99 Oxygen Delivery Method Room Air Room Air 08/27/23 17:40 08/27/23 18:01 08/27/23 18:19 Temperature 97.9 F Temperature Source Oral Pulse Rate 48 L 49 L 49 L Pulse Rate [Right Radial] Respiratory Rate 16 Blood Pressure 199/82 H 149/68 H 149/68 H Blood Pressure [Right Arm] Blood Pressure Mean 95 Blood Pressure Mean [Right Arm] Blood Pressure Source Automatic Cuff Blood Pressure Source [Right Arm] Blood Pressure Position Sitting Blood Pressure Position [Right Arm] 02 Sat by Pulse Oximetry 97 97 Oxygen Delivery Method Room Air Room Air Lab Data Lab Results 08/27/23 12:45: WBC 4.9, RBC 3.60 L, Hgb 10.5 L, Hct 33.7 L, MCV 93.6, MCH 29.1, MCHC 31.1 L, RDW 17.7 H, Plt Count 208, MPV 8.3, Neut % (Auto) 78.6, Lymph % (Auto) 14.7, [place] % (Auto) 4.5, Eos % (Auto) 1.6, Baso % (Auto) 0.5, Neut # (Auto) 3.9, Lymph # (Auto) 0.7, [place] # (Auto) 0.2, Eos # (Auto) 0.1, Baso # (Auto) 0.0, Sodium 138, Potassium 3.5, Chloride 114 H, Carbon Dioxide 15 L, Anion Gap 12.5, BUN 16, Creatinine 1.10 H, Estimated Creat Clear 60, Estimated GFR 50 L, Est GFR ( Amer) 60, Glucose 127 H, Calcium 8.3 L, Total Bilirubin 0.3, AST 25, ALT 23, Alkaline Phosphatase 65, Troponin I < 0.01, Total Protein 6.3, Albumin 3.3 L, Globulin 3.0, Albumin/Globulin Ratio 1.1 08/27/23 15:52: Urine Color Yellow, Urine Appearance Clear, Urine pH 6.0, Ur Specific [place] 1.015, Urine Protein Negative, Urine Glucose (UA) Negative, Urine Ketones Negative, Urine Blood Negative, Urine Nitrate Negative, Urine Bilirubin Negative, Urine Urobilinogen 0.2, Ur Leukocyte Esterase Negative, Urine RBC Occasional, Urine WBC Occasional, Ur Squamous Epith Cells Occasional, Urine Bacteria None 08/27/23 16:50: Troponin I < 0.01 08/27/23 12:45 08/27/23 12:45 Orders (Tests/Meds): ED MEDICATIONS Discontinued Medications Generic Name Dose Route Start Last Admin Trade Name Freq PRN Reason Stop Dose Admin Oxycodone HCl 5 mg 08/27/23 15:03 Oxycodone 5mg Immediate Release Tablet PO 09/26/23 15:02 Q6HP PRN Severe Pain (7-10) Oxycodone HCl 5 mg 08/27/23 18:02 08/27/23 18:06 Oxycodone 5mg Immediate Release Tablet PO 08/27/23 18:03 5 mg ONCE ONE Administration ORDERS Category Date Time Status CXR --portable [XR chest portable] Stat Exams 08/27/23 14:11 Completed CMP [Comprehensive Metabolic Panel] Stat Lab 08/27/23 12:45 Completed Complete Blood Count Auto Diff Stat Lab 08/27/23 12:45 Completed Trop I [Troponin I] Stat Lab 08/27/23 12:45 Completed Troponin I Q3H Lab 08/27/23 16:50 Completed Urinalysis and Microscopic Stat Lab 08/27/23 15:52 Completed
--- NOTE | 2023-08-27 15:13 | ED_ITS ---
Discharge Plan Disposition Patient Disposition: Home, Self-Care Condition: Good Prescriptions Prescriptions: No Action ondansetron 4 mg tablet,disintegrating 4 mg PO Q8H Qty: 90 0RF ciprofloxacin HCl [Cipro] 500 mg tablet 500 mg PO BID Qty: 20 0RF oxycodone-acetaminophen [Percocet] 5-325 mg tablet 1 tab PO Q8H PRN (Reason: pain) Qty: 45 0RF apixaban 5 mg tablet 5 mg PO BID Qty: 60 10RF bupropion HCl 75 mg tablet See Rx Instructions .ROUTE .COMPLEX Qty: 120 10RF Rx Instructions: TAKE 4 TABLETS BY MOUTH IN THE MORNING AND 2 TABLETS AT NOON (TAKE 6 HOURS APART) ergocalciferol (vitamin D2) [Drisdol] 1,250 mcg (50,000 unit) capsule 1,250 mcg PO WEEKLY Qty: 7 10RF levothyroxine 50 mcg tablet See Rx Instructions .ROUTE .COMPLEX Qty: 90 3RF Rx Instructions: TAKE ONE TABLET BY MOUTH ONCE A DAY FOR THYROID rosuvastatin 20 mg tablet See Rx Instructions .ROUTE .COMPLEX Qty: 90 3RF Rx Instructions: TAKE ONE TABLET BY MOUTH ONCE A DAY Stiolto Respimat 2.5-2.5 mcg/actuation mist 2 puff inhalation DAILY Qty: 4 10RF trazodone 100 mg tablet See Rx Instructions .ROUTE .COMPLEX Qty: 180 3RF Rx Instructions: TAKE TWO TABLETS BY MOUTH AT BEDTIME pantoprazole 40 mg tablet,delayed release (DR/EC) See Rx Instructions .ROUTE .COMPLEX Qty: 180 3RF Rx Instructions: TAKE ONE TABLET BY MOUTH TWICE A DAY FOR GERD nitrofurantoin monohyd/m-cryst 100 mg capsule See Rx Instructions .ROUTE .COMPLEX Qty: 100 3RF Rx Instructions: twice a day for 10 days, then once a day on a regular basis to prevent uti gabapentin 100 mg capsule 100 mg PO BID Qty: 60 4RF losartan 50 mg tablet 50 mg PO DAILY Qty: 90 3RF potassium chloride [Klor-Con M20] 20 mEq tablet,ER particles/crystals 40 meq PO DAILY Qty: 30 2RF albuterol sulfate 90 mcg/actuation HFA aerosol inhaler See Rx Instructions .ROUTE .COMPLEX Qty: 18 0RF Dose Instruction: INHALE 2 PUFFS BY MOUTH FOUR TIMES A DAY NEEDED FOR SHORTNESS OF BREATH OR WHEEZING Rx Instructions: INHALE 2 PUFFS BY MOUTH FOUR TIMES A DAY NEEDED FOR SHORTNESS OF BREATH OR WHEEZING alendronate 70 mg tablet See Rx Instructions .ROUTE .COMPLEX Rx Instructions: TAKE ONE TABLET BY MOUTH EVERY WEEK promethazine 25 mg tablet 25 mg PO Q6H PRN (Reason: sedation) Qty: 10 0RF tizanidine [Zanaflex] 4 mg tablet 4 mg PO TID Qty: 90 2RF ropinirole 0.25 mg tablet 0.25 mg PO HS Qty: 30 2RF Rx Instructions: administer 1-3 hours before bedtime carvedilol [Coreg] 12.5 mg Tablet 12.5 mg PO BID Qty: 60 3RF Rx Instructions: must administer with a meal/food Referrals Follow up/Referrals: Roman Medina MD [Primary Care Provider] - See instructions Activity Restrictions/Add. Instructions Additional Instructions/Restrictions: You were evaluated in the emergency department today. At this time, your blood pressure here is not low. I recommend keeping a log of your blood pressures at home, taking it twice a day and when you take different medications to see how it affects you. Please present to primary care provider with this log of blood pressures. They can make medication adjustments as needed. Return to the emergency department for significant symptoms, such as severe lightheadedness, fainting, or other issues. Clinical Impressions Clinical Impression: Blood pressure instability Instructions Patient Instructions: DI for High Blood Pressure Discharge ED Provider: Meaghan Cai General Adult HPI <Kenan Iverson DO - Last Filed: 08/27/23 18:13> General Chief complaint: Dizziness Stated complaint: low bp, soa, dizzy Time Seen by Provider: 08/27/23 12:29 Mode of Arrival: Wheelchair Source of Information: Patient Limitations: No Limitations Description of Symptoms (Recalled from ER Triage Doc. by RN): pt presents to ED stating she checked her BP at home d/t feeling light headed and it was low. pt states she was here earlier this date in pain management and her bp was good. pt states recently her PCP changed her BP medicated by adding Losartan 50 mg. History of Present Illness HPI narrative: 67-year-old female with past medical history significant for CAD, COPD, HTN, HLD, PRAKASH, diastolic dysfunction, renal insufficiency, history of PE, DDD on oxycodone, history of heart catheterization with Dr. Mak and cardiology, presents today for evaluation concerning hypotension, dizziness and shortness of breath. Patient states that she took her blood pressure today and noted that it was 71/44. She adds to history that her blood pressure medications have recently been adjusted noting that about 3 weeks ago her carvedilol was increased from 3-12.5 twice daily. She was also started on 50 mg losartan on 08/07/2023. She does have a right-sided ostomy which she states has had normal output. Denies having any fevers, chills, chest pain, dysuria, hematuria, abdominal pain or any other associated symptoms at this time. Related Data Home Medications Medication Instructions Recorded Confirmed alendronate 70 mg tablet See Rx Instructions .Route 03/04/23 08/27/23 .COMPLEX OSTEOARTHRITIS Previous Rx's Medication Instructions Recorded apixaban 5 mg tablet 5 mg PO BID . #60 tabs 02/01/23 bupropion HCl 75 mg tablet See Rx Instructions .Route 02/01/23 .COMPLEX . #120 tabs ergocalciferol (vitamin D2) 1,250 1,250 mcg PO WEEKLY . #7 caps 02/01/23 mcg (50,000 unit) capsule (Drisdol) levothyroxine 50 mcg tablet See Rx Instructions .Route 02/01/23 .COMPLEX . #90 tabs rosuvastatin 20 mg tablet See Rx Instructions .Route 02/01/23 .COMPLEX Cholesterol #90 tabs tiotropium 2.5 mcg-olodaterol 2.5 2 puff inhalation DAILY Breathing 02/01/23 mcg/actuation mist for inhalation problems #4 grams (Stiolto Respimat) trazodone 100 mg tablet See Rx Instructions .Route 02/01/23 .COMPLEX SLEEP #180 tabs promethazine 25 mg tablet 25 mg PO Q6H PRN sedation #10 tabs 03/27/23 pantoprazole 40 mg tablet,delayed See Rx Instructions .Route 04/08/23 release .COMPLEX STOMACH #180 tabs ondansetron 4 mg disintegrating 4 mg PO Q8H Nausea & vomiting #90 05/29/23 tablet tabs potassium chloride 20 mEq 40 meq PO DAILY #30 tabs 07/01/23 tablet,extended release(part/cryst) (Klor-Con M) nitrofurantoin See Rx Instructions .Route 07/24/23 monohydrate/macrocrystals 100 mg .COMPLEX #100 caps capsule carvedilol 12.5 mg tablet (Coreg) 12.5 mg PO BID #60 tabs 07/30/23 albuterol sulfate 90 mcg/actuation See Rx Instructions .Route 08/01/23 aerosol inhaler .COMPLEX #18 grams gabapentin 100 mg capsule 100 mg PO BID #60 caps 08/07/23 losartan 50 mg tablet 50 mg PO DAILY #90 tabs 08/07/23 ropinirole 0.25 mg tablet 0.25 mg PO HS #30 tabs 08/09/23 tizanidine 4 mg tablet (Zanaflex) 4 mg PO TID . #90 tabs 08/09/23 ciprofloxacin HCl 500 mg tablet 500 mg PO BID #20 tabs 08/22/23 (Cipro) oxycodone-acetaminophen 5 mg-325 1 tab PO Q8H PRN pain #45 tabs 08/22/23 mg tablet (Percocet) Allergies Allergy/AdvReac Type Severity Reaction Status Date / Time codeine Allergy Intermediate I-HIVES Verified 08/27/23 08:16 sulfamethoxazole Allergy Intermediate I-HIVES Verified 08/27/23 08:16 [From Septra] trimethoprim [From Septra] Allergy Intermediate I-HIVES Verified 08/27/23 08:16 ibuprofen [IBUPROFEN] Allergy Unknown VOMITING Verified 08/27/23 08:16 [facility] <Kenan Iverson, DO - Last Filed: 08/27/23 18:13> [facility] Disclaimer: The information contained in this section may have been updated after the patient was seen, as this information can be updated by other users. Medical History CAD (coronary artery disease) Cataract Claudication COPD (chronic obstructive pulmonary disease) Coronary artery calcification seen on CT scan Dyspnea on exertion Edema Elevated left ventricular end-diastolic pressure (LVEDP) Hemorrhoids HHD (hypertensive heart disease) HTN (hypertension) Hyperlipidemia (~11/21/17) Hypokalemia Numbness PRAKASH on CPAP Pleural effusion, left SOB (shortness of breath) Stopped smoking with greater than 30 pack year history Thrombosis Tobacco abuse Vitamin D deficiency (~11/21/17) Surgical History H/O: hysterectomy History of carpal tunnel release History of cholecystectomy History of intestinal surgery Family History Other No significant family history Social History Smoking Status: Current some day smoker tobacco type: cigarettes packs per day: 1 second hand exposure: Yes alcohol intake: never substance use type: marijuana current occupational status: other Travel in the last 8 weeks: None household members: spouse housing: house current occupational exposures/hazards: No caffeine: No <Kenan Iverson DO - Last Filed: 08/27/23 18:13> ROS Obtained: Yes All systems reviewed & no additional complaints except as documented Physical Exam <Sandyemmie Iverson DO - Last Filed: 08/27/23 18:13> General General appearance: alert and in no apparent distress Head Head exam: atraumatic and normocephalic Eye Eye exam: Present normal appearance, PERRL and EOMI ENT ENT exam: Present normal oropharynx and mucous membranes moist Neck Neck exam: Present full ROM; Absent meningismus Respiratory Respiratory exam: Absent respiratory distress, wheezes, stridor or accessory muscle use Cardiovascular Cardiovascular exam: Present normal rhythm and bradycardia Abdominal Exam Abdominal exam: Present soft; Absent distention, tenderness, guarding, rebound or rigidity Neurological Exam Neurological exam: Present alert, oriented X3 and CN II-XII intact; Absent motor sensory deficit Psychiatric Psychiatric exam: Present normal affect and normal mood Skin Skin exam: Present warm and dry Medical Decision Making <Sandyemmie Iverson Last Filed: 08/27/23 18:13> Medical Records Medical records reviewed: Yes I reviewed the patient's medical records. Joshua Inquiry Pt receiving controlled substance: No Joshua was queried for this patient: No Vital Signs: 08/27/23 12:01 08/27/23 13:06 08/27/23 13:30 Temperature Temperature Source Pulse Rate 41 L 40 L Pulse Rate [Right Radial] 46 L Respiratory Rate 16 16 Blood Pressure 103/85 L 123/68 Blood Pressure [Right Arm] 110/63 Blood Pressure Mean 90 99 Blood Pressure Mean [Right Arm] 78 Blood Pressure Source Blood Pressure Source [Right Arm] Automatic Cuff Blood Pressure Position Blood Pressure Position [Right Arm] Sitting 02 Sat by Pulse Oximetry 100 98 97 Oxygen Delivery Method Room Air 08/27/23 14:00 08/27/23 14:10 08/27/23 14:12 Temperature Temperature Source Pulse Rate 41 L 42 L 42 L Pulse Rate [Right Radial] Respiratory Rate 16 16 16 Blood Pressure 134/72 122/63 124/76 Blood Pressure [Right Arm] Blood Pressure Mean 95 96 100 Blood Pressure Mean [Right Arm] Blood Pressure Source Blood Pressure Source [Right Arm] Blood Pressure Position Blood Pressure Position [Right Arm] 02 Sat by Pulse Oximetry 100 98 99 Oxygen Delivery Method 08/27/23 14:30 08/27/23 15:00 08/27/23 15:30 Temperature Temperature Source Pulse Rate 40 L 41 L 42 L Pulse Rate [Right Radial] Respiratory Rate 16 Blood Pressure 131/72 118/74 119/72 Blood Pressure [Right Arm] Blood Pressure Mean 105 Blood Pressure Mean [Right Arm] Blood Pressure Source Blood Pressure Source [Right Arm] Blood Pressure Position Blood Pressure Position [Right Arm] 02 Sat by Pulse Oximetry 99 99 99 Oxygen Delivery Method Room Air Room Air 08/27/23 17:40 08/27/23 18:01 08/27/23 18:19 Temperature 97.9 F Temperature Source Oral Pulse Rate 48 L 49 L 49 L Pulse Rate [Right Radial] Respiratory Rate 16 Blood Pressure 199/82 H 149/68 H 149/68 H Blood Pressure [Right Arm] Blood Pressure Mean 95 Blood Pressure Mean [Right Arm] Blood Pressure Source Automatic Cuff Blood Pressure Source [Right Arm] Blood Pressure Position Sitting Blood Pressure Position [Right Arm] 02 Sat by Pulse Oximetry 97 97 Oxygen Delivery Method Room Air Room Air Lab Data Lab Results 08/27/23 12:45: WBC 4.9, RBC 3.60 L, Hgb 10.5 L, Hct 33.7 L, MCV 93.6, MCH 29.1, MCHC 31.1 L, RDW 17.7 H, Plt Count 208, MPV 8.3, Neut % (Auto) 78.6, Lymph % (Auto) 14.7, [place] % (Auto) 4.5, Eos % (Auto) 1.6, Baso % (Auto) 0.5, Neut # (Auto) 3.9, Lymph # (Auto) 0.7, [place] # (Auto) 0.2, Eos # (Auto) 0.1, Baso # (Auto) 0.0, Sodium 138, Potassium 3.5, Chloride 114 H, Carbon Dioxide 15 L, Anion Gap 12.5, BUN 16, Creatinine 1.10 H, Estimated Creat Clear 60, Estimated GFR 50 L, Est GFR ( Amer) 60, Glucose 127 H, Calcium 8.3 L, Total Bilirubin 0.3, AST 25, ALT 23, Alkaline Phosphatase 65, Troponin I < 0.01, Total Protein 6.3, Albumin 3.3 L, Globulin 3.0, Albumin/Globulin Ratio 1.1 08/27/23 15:52: Urine Color Yellow, Urine Appearance Clear, Urine pH 6.0, Ur Specific [place] 1.015, Urine Protein Negative, Urine Glucose (UA) Negative, Urine Ketones Negative, Urine Blood Negative, Urine Nitrate Negative, Urine Bilirubin Negative, Urine Urobilinogen 0.2, Ur Leukocyte Esterase Negative, Urine RBC Occasional, Urine WBC Occasional, Ur Squamous Epith Cells Occasional, Urine Bacteria None 08/27/23 16:50: Troponin I < 0.01 08/27/23 12:45 08/27/23 12:45 Orders (Tests/Meds): ED MEDICATIONS Discontinued Medications Generic Name Dose Route Start Last Admin Trade Name Freq PRN Reason Stop Dose Admin Oxycodone HCl 5 mg 08/27/23 15:03 Oxycodone 5mg Immediate Release Tablet PO 09/26/23 15:02 Q6HP PRN Severe Pain (7-10) Oxycodone HCl 5 mg 08/27/23 18:02 08/27/23 18:06 Oxycodone 5mg Immediate Release Tablet PO 08/27/23 18:03 5 mg ONCE ONE Administration ORDERS Category Date Time Status CXR --portable [XR chest portable] Stat Exams 08/27/23 14:11 Completed CMP [Comprehensive Metabolic Panel] Stat Lab 08/27/23 12:45 Completed Complete Blood Count Auto Diff Stat Lab 08/27/23 12:45 Completed Trop I [Troponin I] Stat Lab 08/27/23 12:45 Completed Troponin I Q3H Lab 08/27/23 16:50 Completed Urinalysis and Microscopic Stat Lab 08/27/23 15:52 Completed ECG Data Tracing #1: I reviewed this ECG and interpreted as documented below: EKG personally interpreted by me. Sinus bradycardia with a rate of 42 bpm. QTc is 444. [place] interval 173. QRS 88. No ST elevations noted. HEART Score History (anamnesis): Slightly suspicious ECG: Non-specific disturbance Age: 45-65 years Risk factors: Atherosclerosis history Troponin: </= normal limit HEART Score: 4 Medical Decision Narrative: 67-year-old female with past medical history significant for CAD, COPD, HTN, HLD, PRAKASH, diastolic dysfunction, renal insufficiency, history of PE, DDD on oxycodone, history of heart catheterization with Dr. Mak and cardiology, presents today for evaluation concerning hypotension, dizziness and shortness of breath. Patient states that she took her blood pressure today and noted that it was 71/44. She adds to history that her blood pressure medications have recently been adjusted noting that about 3 weeks ago her carvedilol was increased from 3-12.5 twice daily. She was also started on 50 mg losartan on 08/07/2023. She does have a right-sided ostomy which she states has had normal output. On assessment, she is hemodynamically stable and in no acute distress. She was not hypotensive however she was bradycardic in the upper 40s low 50s on my assessment. Chest is clear to auscultation bilaterally. No peripheral edema was noted. The abdomen was soft nondistended and nontender to palpation. She did complain of her chronic back pain and stated that she was due for her oxycodone 5. Other physical exam findings unremarkable. Differential diagnoses include but not limited to medication effect, fluid loss, ACS, orthostasis, among others. Lab workup today is remarkable for a stable anemia with hemoglobin of 10.5, hematocrit of 33.7. CMP showed chloride of 114, carbon dioxide of 15. Creatinine elevated at 1.1. No transaminitis. Initial troponin less than 10.01. Urinalysis with no signs of UTI. On my informal interpretation of chest x-ray, bibasilar atelectasis and possible small effusions noted bilaterally. Please see radiology report for final interpretation. She has had multiple normotensive readings and has not been hypotensive while in the ED. She continues to be without chest pain or significant shortness of breath. I discussed ED workup and current results with patient as well as plan to wait on second troponin. I discussed that her symptoms today could be related to her blood pressure medications. She verbalized understanding and agreement with current plan. At this time care was signed out to Dr. Meaghan Cai pending second troponin and reassessment. <Meaghan Cai, DO - Last Filed: 08/27/23 23:51> Vital Signs: 08/27/23 12:01 08/27/23 13:06 08/27/23 13:30 Temperature Temperature Source Pulse Rate 41 L 40 L Pulse Rate [Right Radial] 46 L Respiratory Rate 16 16 Blood Pressure 103/85 L 123/68 Blood Pressure [Right Arm] 110/63 Blood Pressure Mean 90 99 Blood Pressure Mean [Right Arm] 78 Blood Pressure Source Blood Pressure Source [Right Arm] Automatic Cuff Blood Pressure Position Blood Pressure Position [Right Arm] Sitting 02 Sat by Pulse Oximetry 100 98 97 Oxygen Delivery Method Room Air 08/27/23 14:00 08/27/23 14:10 08/27/23 14:12 Temperature Temperature Source Pulse Rate 41 L 42 L 42 L Pulse Rate [Right Radial] Respiratory Rate 16 16 16 Blood Pressure 134/72 122/63 124/76 Blood Pressure [Right Arm] Blood Pressure Mean 95 96 100 Blood Pressure Mean [Right Arm] Blood Pressure Source Blood Pressure Source [Right Arm] Blood Pressure Position Blood Pressure Position [Right Arm] 02 Sat by Pulse Oximetry 100 98 99 Oxygen Delivery Method 08/27/23 14:30 08/27/23 15:00 08/27/23 15:30 Temperature Temperature Source Pulse Rate 40 L 41 L 42 L Pulse Rate [Right Radial] Respiratory Rate 16 Blood Pressure 131/72 118/74 119/72 Blood Pressure [Right Arm] Blood Pressure Mean 105 Blood Pressure Mean [Right Arm] Blood Pressure Source Blood Pressure Source [Right Arm] Blood Pressure Position Blood Pressure Position [Right Arm] 02 Sat by Pulse Oximetry 99 99 99 Oxygen Delivery Method Room Air Room Air 08/27/23 17:40 08/27/23 18:01 08/27/23 18:19 Temperature 97.9 F Temperature Source Oral Pulse Rate 48 L 49 L 49 L Pulse Rate [Right Radial] Respiratory Rate 16 Blood Pressure 199/82 H 149/68 H 149/68 H Blood Pressure [Right Arm] Blood Pressure Mean 95 Blood Pressure Mean [Right Arm] Blood Pressure Source Automatic Cuff Blood Pressure Source [Right Arm] Blood Pressure Position Sitting Blood Pressure Position [Right Arm] 02 Sat by Pulse Oximetry 97 97 Oxygen Delivery Method Room Air Room Air Lab Data Lab Results 08/27/23 12:45: WBC 4.9, RBC 3.60 L, Hgb 10.5 L, Hct 33.7 L, MCV 93.6, MCH 29.1, MCHC 31.1 L, RDW 17.7 H, Plt Count 208, MPV 8.3, Neut % (Auto) 78.6, Lymph % (Auto) 14.7, [place] % (Auto) 4.5, Eos % (Auto) 1.6, Baso % (Auto) 0.5, Neut # (Auto) 3.9, Lymph # (Auto) 0.7, [place] # (Auto) 0.2, Eos # (Auto) 0.1, Baso # (Auto) 0.0, Sodium 138, Potassium 3.5, Chloride 114 H, Carbon Dioxide 15 L, Anion Gap 12.5, BUN 16, Creatinine 1.10 H, Estimated Creat Clear 60, Estimated GFR 50 L, Est GFR ( Amer) 60, Glucose 127 H, Calcium 8.3 L, Total Bilirubin 0.3, AST 25, ALT 23, Alkaline Phosphatase 65, Troponin I < 0.01, Total Protein 6.3, Albumin 3.3 L, Globulin 3.0, Albumin/Globulin Ratio 1.1 08/27/23 15:52: Urine Color Yellow, Urine Appearance Clear, Urine pH 6.0, Ur Specific [place] 1.015, Urine Protein Negative, Urine Glucose (UA) Negative, Urine Ketones Negative, Urine Blood Negative, Urine Nitrate Negative, Urine Bilirubin Negative, Urine Urobilinogen 0.2, Ur Leukocyte Esterase Negative, Urine RBC Occasional, Urine WBC Occasional, Ur Squamous Epith Cells Occasional, Urine Bacteria None 08/27/23 16:50: Troponin I < 0.01 Orders (Tests/Meds): ED MEDICATIONS Discontinued Medications Generic Name Dose Route Start Last Admin Trade Name Freq PRN Reason Stop Dose Admin Oxycodone HCl 5 mg 08/27/23 15:03 Oxycodone 5mg Immediate Release Tablet PO 09/26/23 15:02 Q6HP PRN Severe Pain (7-10) Oxycodone HCl 5 mg 08/27/23 18:02 08/27/23 18:06 Oxycodone 5mg Immediate Release Tablet PO 08/27/23 18:03 5 mg ONCE ONE Administration ORDERS Category Date Time Status CXR --portable [XR chest portable] Stat Exams 08/27/23 14:11 Completed CMP [Comprehensive Metabolic Panel] Stat Lab 08/27/23 12:45 Completed Complete Blood Count Auto Diff Stat Lab 08/27/23 12:45 Completed Trop I [Troponin I] Stat Lab 08/27/23 12:45 Completed Troponin I Q3H Lab 08/27/23 16:50 Completed Urinalysis and Microscopic Stat Lab 08/27/23 15:52 Completed HEART Score HEART Score: 4 Medical Decision Narrative: 67-year-old female with past medical history significant for CAD, COPD, HTN, HLD, PRAKASH, diastolic dysfunction, renal insufficiency, history of PE, DDD on oxycodone, history of heart catheterization with Dr. Mak and cardiology, presents today for evaluation concerning hypotension, dizziness and shortness of breath. Patient states that she took her blood pressure today and noted that it was 71/44. She adds to history that her blood pressure medications have recently been adjusted noting that about 3 weeks ago her carvedilol was increased from 3-12.5 twice daily. She was also started on 50 mg losartan on 08/07/2023. She does have a right-sided ostomy which she states has had normal output. On assessment, she is hemodynamically stable and in no acute distress. She was not hypotensive however she was bradycardic in the upper 40s low 50s on my assessment. Chest is clear to auscultation bilaterally. No peripheral edema was noted. The abdomen was soft nondistended and nontender to palpation. She did complain of her chronic back pain and stated that she was due for her oxycodone 5. Other physical exam findings unremarkable. Differential diagnoses include but not limited to medication effect, fluid loss, ACS, orthostasis, among others. Lab workup today is remarkable for a stable anemia with hemoglobin of 10.5, hematocrit of 33.7. CMP showed chloride of 114, carbon dioxide of 15. Creatinine elevated at 1.1. No transaminitis. Initial troponin less than 0.01. Urinalysis with no signs of UTI. On my informal interpretation of chest x-ray, bibasilar atelectasis and possible small effusions noted bilaterally. Please see radiology report for final interpretation. She has had multiple normotensive readings and has not been hypotensive while in the ED. She continues to be without chest pain or significant shortness of breath. I discussed ED workup and current results with patient as well as plan to wait on second troponin. I discussed that her symptoms today could be related to her blood pressure medications. She verbalized understanding and agreement with current plan. At this time care was signed out to Dr. Meaghan Cai pending second troponin and reassessment. DO Trell: On my assessment of the patient, she is resting comfortably with actual hypertension as opposed to hypotension. Her systolics in the 140s at this time. She was able to ambulate throughout the emergency department without significant changes in her blood pressure. Second troponin was also undetectable. Labs and workup have otherwise been reassuring. Given that the patient has not been hypotensive while in the emergency department, I do feel that she is appropriate for discharge with outpatient management. Advised that she use caution when taking her blood pressure medications at home and keep an eye on her blood pressure taking it twice a day. Advised that she may want to also make sure that her blood pressure cuff is accurate by taking it for testing either at local pharmacy or primary care provider's office where they can check her blood pressure and compare readings in real-time. I also advised that she call her primary care provider and notify them of her evaluation here today. She was given strict return precautions and was discharged in stable condition after all questions were answered. Critical Care <Kenan Iverson DO - Last Filed: 08/27/23 18:13> Critical Care Time Critical Care Time: No
--- NOTE | 2023-08-27 15:35 | PC.NURSE ---
Pt continues to rest in bed. No needs voiced.
[2023-08-27 15:57] LABS: Microscopic, Urine URINE MICROSCOPIC (MICROSCOPIC)
[2023-08-27 16:05] LABS: Appearance,Urine CLEAR (Clear); Bilirubin,Urine Negative (Negative); Blood, Urine Negative (Negative); Color,Urine YELLOW (Yellow); Glucose,Urine (UA) Negative (Negative); Ketones,Urine Negative (Negative); Leukocyte Esterase,Urine Negative (Negative); Nitrate,Urine Negative (Negative); Protein,Urine Negative (Negative); Specific Gravity, Urine 1.015 (1.005-1.030); Urobilinogen,Urine 0.2 EU/dl (0.2)
[2023-08-27 16:22] LABS: RBC,Urine Occasional #/hpf (0-3); Squamous Epithelial Cell,Urine Occasional #/hpf (0-5); WBC,Urine Occasional #/hpf (0-3)
--- NOTE | 2023-08-27 17:03 | PC.NURSE ---
Second trop sent to LAB
[2023-08-27 17:44] LABS: Troponin I < 0.01 ng/ml (0.00-0.034)
[2023-08-27] MEDS: OXYCODONE 5MG IMMEDIATE RELEASE TABLET 5 MG PO (18:06)
== END 2023-08-27 18:21 | disposition home or self-care (01) ==
PROVIDERS: Emergency Medicine; Emergency Provider Emergency Medicine; PCP Family Medicine
DX: I95.89 Other hypotension (principal); R00.1 Bradycardia, unspecified; R06.02 Shortness of breath; R42 Dizziness and giddiness; I99.8 Other disorder of circulatory system; J44.9 Chronic obstructive pulmonary disease, unspecified; F17.210 Nicotine dependence, cigarettes, uncomplicated; I11.9 Hypertensive heart disease without heart failure; I25.10 Atherosclerotic heart disease of native coronary artery without angina pectoris; E78.5 Hyperlipidemia, unspecified; Z95.5 Presence of coronary angioplasty implant and graft
CPT/HCPCS: 71045; 80053; 81001; 84484; 85025; 93005; 99285; J1040

== ENCOUNTER 2023-09-09 09:59 | Outpatient (POV) | payer MEDICARE, MEDICAID, SELFPAY ==
--- NOTE | 2023-09-09 10:17 | A.OFFVIS_ITS ---
[facility] Pain Management SOAP Note Subjective:: Patient is a pleasant 67-year-old female who presents today for follow-up of thoracic epidural T10-T11 on 08/27/2023. We are currently treating the patient for degenerative disc disease of lumbar spine with lumbar radiculopathy symptoms, low back pain, mid back pain, chronic compression fractures, right hip pain, chronic pain syndrome, mid back pain. Today she rates her pain an 6 out of 10. She states she has had at least 60% improvement following this injection and it is providing good relief even now. She states that she is able to raise her upper arms all the way up without having any pain. She states that she has better range of motion of her upper extremities and feels like she has been able to do more around her house. Patient states that she has been cleaning and doing things that she has not been able to do for months. She does state that most of her pain today is in her low back and legs. She states that she may have just overdone it because she was feeling so much better. Her low back pain is an achy, throbbing sensation with numbness and tingling that radiates down into her legs. she has difficulty performing activities of daily living such as cooking and cleaning due to this pain. Patient did previously have a lumbar epidural back in June that provided more than 50% relief lasting the last couple of months. She does state that she feels like she is back to her baseline and would like another low back injection for improvement. Patient is currently managed with Percocet 5 mg 3 times a day from her PCP and compounded cream, tizanidine 4 mg 3 times a day and ropinirole 0.25 mg at bedtime from our office. her Joshua has been reviewed and is appropriate. Review of Systems: General: No recent weight changes, no fever, no sleep disturbances Respiratory: No cough, no shortness of air, no recurring pulmonary infections Cardiovascular/peripheral vascular: No chest pain, no palpitations, no edema, no shortness of breath Gastrointestinal: No new onset incontinence, normal bowel movements reported Genitourinary: No new onset incontinence Musculoskeletal: Low back pain, bilateral leg pain Psychiatric: [Normal mood/affect] Neurological: [Denies weakness in extremities], [denies balance issues] Objective:: Physical Exam: General: Alert and oriented x3, no acute distress, pleasant and cooperative Lungs: Respirations even and unlabored, symmetrical chest expansion Eyes: PERRL Musculoskeletal: Flexion and extension of lumbar [spine] somewhat guarded secondary to pain, [antalgic gait noted] Neurological: Speech clear, no gross sensory deficit Assessment:: Degenerative disc disease of thoracic and lumbar spine with thoracic and lumbar radiculopathy symptoms, chronic pain syndrome Plan:: Patient is experiencing worsening pain low back and legs with limited range of motion. I have discussed with patient that she may benefit from repeat lumbar epidural steroid injection. Risk and benefits were discussed with patient and she would like to proceed forward with this plan of care. Patient has previously had this injection and had approximately 50% improvement lasting approximately 2 months with her last injection in June. Patient is on blood thinner written by Dr. Medina and she has been counseled that she will have to stop this medication prior to this injection. Patient acknowledges understanding. We will schedule the patient for an LESI L4-L5 under fluoroscopy. Patient was given refills on her medication at the 3-month supply at her last visit does not need refills at this time. Patient has been instructed to contact the clinic with any concerns before the next appointment. Dr. Brown has reviewed this note and agrees with this plan of care. This note was dictated using voice recognition software and make contain errors or omissions. [facility] Disclaimer: The information contained in this section may have been updated after the patient was seen, as this information can be updated by other users. Medical History Thrombosis Hemorrhoids Cataract Hypokalemia Claudication Pleural effusion, left Stopped smoking with greater than 30 pack year history Dyspnea on exertion Edema HHD (hypertensive heart disease) Elevated left ventricular end-diastolic pressure (LVEDP) CAD (coronary artery disease) Numbness Coronary artery calcification seen on CT scan COPD (chronic obstructive pulmonary disease) Tobacco abuse PRAKASH on CPAP SOB (shortness of breath) HTN (hypertension) Vitamin D deficiency (~11/21/17) Hyperlipidemia (~11/21/17) Surgical History History of carpal tunnel release History of cholecystectomy H/O: hysterectomy History of intestinal surgery Family History Other No significant family history Social History Smoking Status: Current some day smoker tobacco type: cigarettes packs per day: 1 second hand exposure: Yes alcohol intake: never substance use type: marijuana current occupational status: other Travel in the last 8 weeks: None household members: spouse housing: house current occupational exposures/hazards: No caffeine: No
[2023-09-09 10:42] VITALS: BP 138/66; PULSE 59; RESP 18; O2SAT 98; BMI 29.2
== END 2023-09-09 23:59 | disposition home or self-care (01) ==
PROVIDERS: PCP Family Medicine; Visit Provider Nurse Practitioner Family
DX: M51.14 Intervertebral disc disorders with radiculopathy, thoracic region (principal); M51.16 Intervertebral disc disorders with radiculopathy, lumbar region; G89.4 Chronic pain syndrome; M25.551 Pain in right hip
CPT/HCPCS: 99212; G0463

== ENCOUNTER 2023-09-16 19:59 | Outpatient (CLI) | payer MEDICARE, MEDICAID, SELFPAY | END 2023-09-16 23:59 | LOC: LAB.DROPOF 19:59 | PROVIDERS: PCP Family Medicine; Visit Provider Family Medicine | DX: N39.0 Urinary tract infection, site not specified (principal); B95.2 Enterococcus as the cause of diseases classified elsewhere | CPT/HCPCS: 87086 ==

== ENCOUNTER 2023-09-23 14:38 | Outpatient (CLI) | payer MEDICARE, MEDICAID, SELFPAY ==
[2023-09-23 14:59] VITALS: BMI 30.1
[2023-09-23 15:11] VITALS: BP 141/87; PULSE 65; RESP 18; TEMP 36.7; O2SAT 97
[2023-09-23 15:20] LABS: Chloride 113 mmol/L (98-107); Potassium 3.2 mmoL/L (3.5-5.1); Sodium 140 mmol/L (136-145)
[2023-09-23 15:23] LABS: Anion Gap 6.2 mEq/L (5-15); Blood Urea Nitrogen 18 mg/dl (7-17); Calcium 7.6 mg/dl (8.4-10.2); Carbon Dioxide 24 mmol/L (22.0-30.0); Creatinine Clearance Estimated 68 mL/min (50-200); Estimated Glomerular Filt Rate 72 ml/min (>60); GFR (African American) 87 ML/MIN (>60); Glucose 134 mg/dl (74-100)
[2023-09-23] MEDS: ERTAPENEM SODIUM 1 GM VIAL IM (15:51)
== END 2023-09-23 15:35 | disposition home or self-care (01) ==
LOC: INF 14:39
PROVIDERS: PCP Family Medicine; Visit Provider Family Medicine
DX: N39.0 Urinary tract infection, site not specified (principal); B95.2 Enterococcus as the cause of diseases classified elsewhere; Z87.440 Personal history of urinary (tract) infections
CPT/HCPCS: 36415; 80048; 96372; J1335

== ENCOUNTER 2023-09-24 14:33 | Outpatient (CLI) | payer MEDICARE, MEDICAID, SELFPAY ==
[2023-09-24] MEDS: ERTAPENEM SODIUM 1 GM VIAL IM (15:05)
[2023-09-24 15:08] VITALS: BP 157/86; PULSE 66; RESP 16; TEMP 36.4; O2SAT 97
== END 2023-09-24 15:13 | disposition home or self-care (01) ==
LOC: INF 14:34
PROVIDERS: PCP Family Medicine; Visit Provider Family Medicine
DX: Z87.440 Personal history of urinary (tract) infections (principal); B95.2 Enterococcus as the cause of diseases classified elsewhere
CPT/HCPCS: 96372; J1335

== ENCOUNTER 2023-09-25 14:04 | Outpatient (CLI) | payer MEDICARE, MEDICAID, SELFPAY ==
[2023-09-25] MEDS: ERTAPENEM SODIUM 1 GM VIAL IM (14:36)
[2023-09-25 14:38] VITALS: BP 137/72; PULSE 60; RESP 16; TEMP 36.4; O2SAT 100
== END 2023-09-25 14:43 | disposition home or self-care (01) ==
LOC: INF 14:05
PROVIDERS: PCP Family Medicine; Visit Provider Family Medicine
DX: Z87.440 Personal history of urinary (tract) infections (principal); B95.2 Enterococcus as the cause of diseases classified elsewhere
CPT/HCPCS: 96372; J1335

== ENCOUNTER 2023-09-26 14:11 | Outpatient (CLI) | payer MEDICARE, MEDICAID, SELFPAY ==
[2023-09-26 14:45] VITALS: BP 110/68; PULSE 56; RESP 16; O2SAT 95
[2023-09-26] MEDS: ERTAPENEM SODIUM 1 GM VIAL IM (14:45)
== END 2023-09-26 14:48 | disposition home or self-care (01) ==
LOC: INF 14:11
PROVIDERS: PCP Family Medicine; Visit Provider Family Medicine
DX: Z87.440 Personal history of urinary (tract) infections (principal); B95.2 Enterococcus as the cause of diseases classified elsewhere
CPT/HCPCS: 96372; J1335

== ENCOUNTER 2023-09-27 14:15 | Outpatient (CLI) | payer MEDICARE, MEDICAID, SELFPAY ==
[2023-09-27 15:00] VITALS: BP 133/64; PULSE 56; RESP 18; O2SAT 98
[2023-09-27] MEDS: ERTAPENEM SODIUM 1 GM VIAL IM (15:00)
== END 2023-09-27 15:03 | disposition home or self-care (01) ==
LOC: INF 14:16
PROVIDERS: PCP Family Medicine; Visit Provider Internal Medicine Medical Oncology
DX: Z87.440 Personal history of urinary (tract) infections (principal); B95.2 Enterococcus as the cause of diseases classified elsewhere
CPT/HCPCS: 96372; J1335

== ENCOUNTER 2023-09-28 14:06 | Outpatient (CLI) | payer MEDICARE, MEDICAID, SELFPAY ==
[2023-09-28] MEDS: ERTAPENEM SODIUM 1 GM VIAL IM (14:25)
== END 2023-09-28 23:59 ==
LOC: INF 14:08
PROVIDERS: PCP Family Medicine; Visit Provider Family Medicine
DX: Z87.440 Personal history of urinary (tract) infections (principal); B95.2 Enterococcus as the cause of diseases classified elsewhere
CPT/HCPCS: 96372; J1335

== ENCOUNTER 2023-09-29 13:57 | Outpatient (CLI) | payer MEDICARE, MEDICAID, SELFPAY ==
[2023-09-29] MEDS: ERTAPENEM SODIUM 1 GM VIAL IM (14:19)
== END 2023-09-29 23:59 ==
LOC: INF 13:58
PROVIDERS: PCP Family Medicine; Visit Provider Family Medicine
DX: Z87.440 Personal history of urinary (tract) infections (principal); B95.2 Enterococcus as the cause of diseases classified elsewhere
CPT/HCPCS: 96372; J1335

== ENCOUNTER 2023-09-30 14:19 | Outpatient (CLI) | payer MEDICARE, MEDICAID, SELFPAY ==
[2023-09-30 14:39] VITALS: BP 136/70; PULSE 66; RESP 18; TEMP 36.2
[2023-09-30] MEDS: ERTAPENEM SODIUM 1 GM VIAL IM (14:49)
== END 2023-09-30 14:53 | disposition home or self-care (01) ==
LOC: INF 14:20
PROVIDERS: PCP Family Medicine; Visit Provider Family Medicine
DX: Z87.440 Personal history of urinary (tract) infections (principal); B95.2 Enterococcus as the cause of diseases classified elsewhere
CPT/HCPCS: 96372; J1335

== ENCOUNTER 2023-10-01 09:49 | Day surgery (SDC) | payer MEDICARE, MEDICAID, SELFPAY ==
[2023-10-01 10:14] VITALS: BP 134/78; PULSE 60; RESP 18; TEMP 36.6; O2SAT 97; BMI 30.1
[2023-10-01 10:16] VITALS: BP 154/93; PULSE 63; RESP 18; O2SAT 97
[2023-10-01] MEDS: methylPREDNISolone ACETATE 80MG/ML VIAL 80 MG (10:16)
[2023-10-01 10:18] VITALS: BP 154/93; BP 159/63; PULSE 58; PULSE 63; RESP 18; O2SAT 97
--- NOTE | 2023-10-01 10:20 | EXP.PAIN.PRO ---
Procedure Date: 10/01/23 Time: 10:10 Anesthesiologist:: Wilian Griggs CRNA Complications:: None Pre-procedure Diagnosis:: Degenerative disc lumbar spine multilevels. Lumbar radiculopathy. Post-procedure Diagnosis:: Same. Indications for Procedure:: Patient is a pleasant 67-year-old female comes our clinic today for lumbar epidural steroid injection at the L4-5 level. She responded very well reporting 2 months relief with previous injections at the same level. She rates her pain today 7/10. She reports low back pain as well as bilateral hip and leg radicular symptoms at times. However, overall she is much better than she was prior to the first injection. Procedure Details:: Procedure: Lumbar epidural steroid injection under fluoroscopy Informed consent was obtained and the risks and benefits of the procedure were explained to the patient. The patient was taken to the procedure room and noninvasive monitors placed, including noninvasive blood pressure cuff and pulse oximeter. The back was viewed using C-arm Fluoroscopy and prepped using Chloraprep as a cleansing solution and the L4-L5 interspace was palpated. Skin and subcutaneous tissues were anesthetized using lidocaine 1.5% and a 25-gauge needle. After this, an 18-gauge Touhy epidural needle was placed into the L4-L5 interspace and advanced using fluoroscopic guidance and loss of resistance to air until the epidural space was encountered. After confirmation of needle placement in the epidural space, with dye, a solution containing normal saline, 3 mL and Depo-Medrol 80 mg were incrementally injected into the lumbar epidural space. The patient tolerated the procedure well with no complications. The patient was observed in the Pain Clinic and then discharged home neurologically intact. Plan and Disposition:: Patient was discharged without incident.
== END 2023-10-01 10:18 | disposition home or self-care (01) ==
PROVIDERS: PCP Family Medicine; Visit Provider Nurse Anesthetist, Certified Registered
DX: M51.36 Other intervertebral disc degeneration, lumbar region (principal)
CPT/HCPCS: J1010

== ENCOUNTER 2023-10-01 14:14 | Outpatient (CLI) | payer MEDICARE, MEDICAID, SELFPAY ==
[2023-10-01] MEDS: ERTAPENEM SODIUM 1 GM VIAL IM (14:40)
[2023-10-01 14:41] VITALS: BP 132/50; PULSE 56; RESP 18; TEMP 36.3; O2SAT 97
== END 2023-10-01 14:41 | disposition home or self-care (01) ==
LOC: INF 14:14
PROVIDERS: PCP Family Medicine; Visit Provider Family Medicine
DX: Z87.440 Personal history of urinary (tract) infections (principal); B95.2 Enterococcus as the cause of diseases classified elsewhere
CPT/HCPCS: 96372; J1010; J1335

== ENCOUNTER 2023-10-02 13:57 | Outpatient (CLI) | payer MEDICARE, MEDICAID, SELFPAY ==
[2023-10-02 14:28] VITALS: BP 110/67; PULSE 58; RESP 18; TEMP 36.8; O2SAT 95
[2023-10-02] MEDS: ERTAPENEM SODIUM 1 GM VIAL IM (14:29)
== END 2023-10-02 14:31 | disposition home or self-care (01) ==
LOC: INF 13:57
PROVIDERS: PCP Family Medicine; Visit Provider Family Medicine
DX: Z87.440 Personal history of urinary (tract) infections (principal); B95.2 Enterococcus as the cause of diseases classified elsewhere
CPT/HCPCS: 96372; J1335

== ENCOUNTER 2023-10-16 11:17 | Outpatient (POV) | payer MEDICARE, MEDICAID, SELFPAY ==
[2023-10-16 11:26] VITALS: BP 192/118; PULSE 77; RESP 16; O2SAT 96; BMI 30.1
--- NOTE | 2023-10-16 11:31 | A.OFFVIS_ITS ---
[facility] Pain Management SOAP Note Subjective:: Patient is a pleasant 67-year-old female who presents today for follow-up of lumbar epidural steroid injection L4-L5 on 10/01/2023. Today she rates her pain a 5 out of 10. Patient states she has had at least 50% improvement following this injection and feels like it is still continuing to provide good relief. Patient does state she feels overall more functional and can do more activities around the house such as cleaning. Patient does present today walking with the assistance of a cane however is not having to rely on a wheelchair. Patient did at her last visit get sent in a 3-month supply of her tizanidine 4 mg 3 times a day and ropinirole 0.25 mg at bedtime from our office. Patient does state that she does need refills on her compounded cream. Patient is prescribed Percocet from an outside provider. Her Joshua has been reviewed and is appropriate. Review of Systems: General: No recent weight changes, no fever, no sleep disturbances Respiratory: No cough, no shortness of air, no recurring pulmonary infections Cardiovascular/peripheral vascular: No chest pain, no palpitations, no edema, no shortness of breath Gastrointestinal: No new onset incontinence, normal bowel movements reported Genitourinary: No new onset incontinence Musculoskeletal: Low back pain Psychiatric: [Normal mood/affect] Neurological: [Denies weakness in extremities], [denies balance issues] Objective:: Physical Exam: General: Alert and oriented x3, no acute distress, pleasant and cooperative Lungs: Respirations even and unlabored, symmetrical chest expansion Eyes: PERRL Musculoskeletal: Flexion and extension of lumbar [spine] somewhat guarded secondary to pain, [antalgic gait noted] Neurological: Speech clear, no gross sensory deficit Assessment:: Degenerative disc disease of thoracic and lumbar spine with thoracic and lumbar radiculopathy symptoms, chronic pain syndrome Plan:: I will send in refills of her compounded cream. Patient has had significant improvement following her lumbar epidural and does not require any additional injection therapy. Will have the patient return back to clinic in 2 months for reevaluation of symptoms and medication refill. Patient has been instructed to contact the clinic with any concerns before the next appointment. Dr. Brown has reviewed this note and agrees with this plan of care. This note was dictated using voice recognition software and make contain errors or omissions. [facility] Disclaimer: The information contained in this section may have been updated after the patient was seen, as this information can be updated by other users. Medical History Thrombosis Hemorrhoids Cataract Hypokalemia Claudication Pleural effusion, left Stopped smoking with greater than 30 pack year history Dyspnea on exertion Edema HHD (hypertensive heart disease) Elevated left ventricular end-diastolic pressure (LVEDP) CAD (coronary artery disease) Numbness Coronary artery calcification seen on CT scan COPD (chronic obstructive pulmonary disease) Tobacco abuse PRAKASH on CPAP SOB (shortness of breath) HTN (hypertension) Vitamin D deficiency (~11/21/17) Hyperlipidemia (~11/21/17) Surgical History History of carpal tunnel release History of cholecystectomy H/O: hysterectomy History of intestinal surgery Family History Other No significant family history Social History (Updated 10/02/23 @ 14:27 by BOB Hui) Smoking Status: Current some day smoker tobacco type: cigarettes packs per day: 1 second hand exposure: Yes alcohol intake: never substance use type: marijuana current occupational status: other Travel in the last 8 weeks: None household members: spouse housing: house current occupational exposures/hazards: No caffeine: No
== END 2023-10-16 23:59 | disposition home or self-care (01) ==
LOC: SC.PAIN 11:18
PROVIDERS: Visit Provider Nurse Practitioner Family
DX: M51.14 Intervertebral disc disorders with radiculopathy, thoracic region (principal); M51.16 Intervertebral disc disorders with radiculopathy, lumbar region; G89.4 Chronic pain syndrome
CPT/HCPCS: 99212; G0463

== ENCOUNTER 2023-11-01 18:00 | Outpatient (CLI) | payer MEDICARE, MEDICAID, SELFPAY | END 2023-11-01 23:59 | disposition home or self-care (01) | LOC: LAB.DROPOF 11-02 08:27 | PROVIDERS: PCP Family Medicine; Visit Provider Family Medicine | DX: R30.0 Dysuria (principal); B96.1 Klebsiella pneumoniae [K. pneumoniae] as the cause of diseases classified elsewhere | CPT/HCPCS: 87086; 87088; 87186 ==

== ENCOUNTER 2023-11-15 09:55 | Outpatient (POV) | payer MEDICARE, MEDICAID, SELFPAY ==
[2023-11-15 10:26] VITALS: BP 115/68; PULSE 57; RESP 16; O2SAT 94; BMI 29.2
--- NOTE | 2023-11-15 10:41 | EXP.PAIN.SOA ---
[facility] Pain Management SOAP Note Subjective:: Patient is a pleasant 58-year-old female who presents today for follow-up. Today she rates her pain an 8 out of 10. Patient states that she recently has had 2 different falls where she just lost her balance landing on her back. She does state for this reason she is having increased pain throughout the low back and radiating into her lower legs. Patient denies any fractures or worse symptoms. Patient did previously get a lumbar epidural steroid injection back at the beginning of September that did provide more than 50% relief and lasted up until her recent falls. Patient states she is interested in repeating this injection because it did give overall improvement of her daily function with decreased pain symptoms. Patient is currently managed with tizanidine 4 mg 3 times a day and ropinirole 0.25 mg at bedtime. Patient has been given a 3-month supply in the past and states she is unsure if she needs refills. She is also prescribed compounded cream from our office and Percocet from her PCP. Her Joshua has been reviewed and is appropriate. Review of Systems: General: No recent weight changes, no fever, no sleep disturbances Respiratory: No cough, no shortness of air, no recurring pulmonary infections Cardiovascular/peripheral vascular: No chest pain, no palpitations, no edema, no shortness of breath Gastrointestinal: No new onset incontinence, normal bowel movements reported Genitourinary: No new onset incontinence Musculoskeletal: Low back pain, bilateral leg pain Psychiatric: [Normal mood/affect] Neurological: [Denies weakness in extremities], [denies balance issues] Objective:: Physical Exam: General: Alert and oriented x3, no acute distress, pleasant and cooperative Lungs: Respirations even and unlabored, symmetrical chest expansion Eyes: PERRL Musculoskeletal: Flexion and extension of lumbar [spine] somewhat guarded secondary to pain, [antalgic gait noted] positive bilateral leg raise Neurological: Speech clear, no gross sensory deficit Assessment:: Degenerative disc disease of thoracic and lumbar spine with thoracic and lumbar radiculopathy symptoms, chronic pain syndrome Plan:: Patient is experiencing worsening pain throughout her low back and legs with numbness and tingling. The pain is interfering with her ability perform activities of daily living. I have discussed with patient due to how successful her prior lumbar epidurals have been with improving function that she may benefit from a repeat injection. Risk and benefits of the lumbar epidural were explained to the patient and she would like to proceed forward with this plan of care. Patient is on blood thinners her PCP and we will confirm that she can stop this medication prior to these injections. Patient has tried and failed conservative therapy including continued at home stretching and exercise between injections. I will refill the patient's tizanidine and ropinirole and provide a 3-month supply of this medication. Patient will be scheduled for an LESI L4-L5 under fluoroscopy. Patient has been instructed to contact the clinic with any concerns before the next appointment. Dr. Brown has reviewed this note and agrees with this plan of care. This note was dictated using voice recognition software and make contain errors or omissions. [facility] Disclaimer: The information contained in this section may have been updated after the patient was seen, as this information can be updated by other users. Medical History Thrombosis Hemorrhoids Cataract Hypokalemia Claudication Pleural effusion, left Stopped smoking with greater than 30 pack year history Dyspnea on exertion Edema HHD (hypertensive heart disease) Elevated left ventricular end-diastolic pressure (LVEDP) CAD (coronary artery disease) Numbness Coronary artery calcification seen on CT scan COPD (chronic obstructive pulmonary disease) Tobacco abuse PRAKASH on CPAP SOB (shortness of breath) HTN (hypertension) Vitamin D deficiency (~11/21/17) Hyperlipidemia (~11/21/17) Surgical History History of carpal tunnel release History of cholecystectomy H/O: hysterectomy History of intestinal surgery Family History Other No significant family history Social History Smoking Status: Current some day smoker tobacco type: cigarettes packs per day: 1 second hand exposure: Yes alcohol intake: never substance use type: marijuana current occupational status: other Travel in the last 8 weeks: None household members: spouse housing: house current occupational exposures/hazards: No caffeine: No
== END 2023-11-15 23:59 | disposition home or self-care (01) ==
PROVIDERS: PCP Family Medicine; Visit Provider Nurse Practitioner Family
DX: M51.14 Intervertebral disc disorders with radiculopathy, thoracic region (principal); M51.16 Intervertebral disc disorders with radiculopathy, lumbar region; G89.4 Chronic pain syndrome
CPT/HCPCS: 99212; G0463

== ENCOUNTER 2023-12-04 14:42 | Outpatient (CLI) | payer MEDICARE, MEDICAID, SELFPAY ==
[2023-12-04 18:50] LABS: MANUAL DIFFERENTIAL MANUAL DIFFERENTIAL (MANUAL DIFF)
[2023-12-04 19:04] LABS: Basophils % 0.7 % (0.1-2.0); Eosinophils # 0.1 K/mm3 (0.0-0.4); Eosinophils % 2.5 % (0.1-12.0); Hematocrit 36.7 % (37.0-47.0); Hemoglobin 11.4 g/dL (12.2-16.2); Lymphocytes # 0.7 K/mm3 (0.7-4.5); Lymphocytes % 12.8 % (10-50); Mean Corpuscular HGB Conc 30.9 g/dL (31.8-35.4); Mean Corpuscular Hemoglobin 28.6 pg (27.0-31.2); Mean Corpuscular Volume 92.4 fl (81-99); Mean Platelet Volume 10.5 fl (7.4-10.4); Monocytes # 0.4 K/mm3 (0.1-1.0); Monocytes % 6.9 % (1.7-9.3); Neutrophils % 77.2 % (37.0-80.0); Platelet Count 177 K/mm3 (142-424); Red Blood Count 3.97 M/mm3 (4.20-5.40); White Blood Count 5.2 K/mm3 (4.8-10.8)
[2023-12-04 19:29] LABS: Alanine Aminotransferase 15 U/L (12-78); Albumin Level 3.4 g/dl (3.5-5.0); Albumin/Globulin Ratio 1.1 (1.1-1.8); Alkaline Phosphatase 87 U/L (38-126); Anion Gap 13.7 mEq/L (5-15); Aspartate Amino Transferase 25 U/L (14-36); Bilirubin,Total 0.3 mg/dl (0.2-1.3); Blood Urea Nitrogen 20 mg/dl (7-17); Calcium 7.9 mg/dl (8.4-10.2); Carbon Dioxide 23 mmol/L (22.0-30.0); Chloride 108 mmol/L (98-107); Chol/HDL Ratio 2.9 (1-3.5); Cholesterol 130 mg/dl (140-200); Estimated Glomerular Filt Rate 63 ml/min (>60); GFR (African American) 76 ML/MIN (>60); Glucose 99 mg/dl (74-100); HDL Cholesterol 45 mg/dl (40-60); Potassium 3.7 mmoL/L (3.5-5.1); Sodium 141 mmol/L (136-145); Total Protein,Serum 6.4 g/dl (6.3-8.2); Triglycerides 206 mg/dl (30-150); VLDL Cholesterol 41 mg/dL (0-40)
[2023-12-04 19:40] LABS: Direct LDL Cholesterol 57.98 mg/dL (100-129)
[2023-12-04 20:00] LABS: Thyroid Stimulating Hormone 2.02 uIU/mL (0.465-4.68)
[2023-12-04 20:15] LABS: Eosinophils % 2 % (0-3); Lymphocytes % 19 % (10-50); Monocytes % 8 % (2-9); Neutrophils % 70 % (42-76); Total Cells Counted 100
[2023-12-04 20:16] LABS: Platelet Estimate Normal; RBC Morphology Normal
== END 2023-12-04 23:59 | disposition home or self-care (01) ==
LOC: LAB.DROPOF 12-05 14:43
PROVIDERS: PCP Family Medicine; Visit Provider Family Medicine
DX: E78.5 Hyperlipidemia, unspecified
CPT/HCPCS: 80053; 80061; 84443; 85007; 85014; 85018; 85048; 85049

== ENCOUNTER 2023-12-10 10:34 | Day surgery (SDC) | payer MEDICARE, MEDICAID, SELFPAY ==
[2023-12-10 10:48] VITALS: BP 107/76; PULSE 64; RESP 18; TEMP 36.6; O2SAT 95; BMI 29.2
[2023-12-10] MEDS: methylPREDNISolone ACETATE 80MG/ML VIAL 80 MG (10:54)
[2023-12-10 10:55] VITALS: BP 112/64; PULSE 69; RESP 18; O2SAT 98
[2023-12-10 10:56] VITALS: BP 112/64; PULSE 69; RESP 18; O2SAT 98
--- NOTE | 2023-12-10 10:58 | EXP.PAIN.PRO ---
Procedure Date: 12/10/23 Time: 10:50 Anesthesiologist:: Wilian Griggs CRNA Complications:: None Pre-procedure Diagnosis:: Due to disc lumbar spine multilevels. Lumbar radiculopathy. Lumbar facet arthropathy. Lumbar spondylosis. Post-procedure Diagnosis:: Same. Indications for Procedure:: Patient is a very pleasant 68-year-old female comes our clinic today for repeat lumbar epidural steroid injection L4-5 level. Patient reports 6 to 8 weeks of significant proved in terms of her overall low back pain as well as bilateral hip and leg radicular symptoms with previous injection same level. She rates her pain today 6/10. She describes low lumbar back pain as well as bilateral hip and leg radicular symptoms. Procedure Details:: Procedure: Lumbar epidural steroid injection under fluoroscopy Informed consent was obtained and the risks and benefits of the procedure were explained to the patient. The patient was taken to the procedure room and noninvasive monitors placed, including noninvasive blood pressure cuff and pulse oximeter. The back was viewed using C-arm Fluoroscopy and prepped using Chloraprep as a cleansing solution and the L4-L5 interspace was palpated. Skin and subcutaneous tissues were anesthetized using lidocaine 1.5% and a 25-gauge needle. After this, an 18-gauge Touhy epidural needle was placed into the L4-L5 interspace and advanced using fluoroscopic guidance and loss of resistance to air until the epidural space was encountered. After confirmation of needle placement in the epidural space, with dye, a solution containing normal saline, 3 mL and Depo-Medrol 80 mg were incrementally injected into the lumbar epidural space. The patient tolerated the procedure well with no complications. The patient was observed in the Pain Clinic and then discharged home neurologically intact. Plan and Disposition:: Patient was discharged without incident.
[2023-12-10 11:02] VITALS: BP 102/53; PULSE 60; RESP 16; O2SAT 96
== END 2023-12-10 11:04 | disposition home or self-care (01) ==
PROVIDERS: PCP Family Medicine; Visit Provider Nurse Anesthetist, Certified Registered
DX: M51.16 Intervertebral disc disorders with radiculopathy, lumbar region (principal); M47.26 Other spondylosis with radiculopathy, lumbar region
CPT/HCPCS: 62323; J1010

== ENCOUNTER 2023-12-16 09:12 | Outpatient (POV) | payer MEDICARE, MEDICAID, SELFPAY ==
--- NOTE | 2023-12-16 09:49 | EXP.PAIN.SOA ---
[facility] Pain Management SOAP Note Subjective:: Patient is a pleasant 58-year-old female who presents today for follow-up of lumbar epidural steroid injection L4-L5 on 12/10/2023. Today she rates her pain an 5 out of 10. She does state that she has had at least 50% improvement following this injection and feels like it still currently helping. She states she is able to move around easier with overall decreased pain. Patient does state that she continues to have pain in her bilateral big toes however that she did recently get new shoes that do have better arch support are helping. Patient states she also has been using her compounded cream with some improvement. Patient does states she needs refills on her compounded cream. Patient is currently managed with tizanidine 4 mg 3 times a day and ropinirole 0.25 mg at bedtime. She is also prescribed compounded cream from our office and Percocet from her PCP. Her Joshua has been reviewed and is appropriate. Review of Systems: General: No recent weight changes, no fever, no sleep disturbances Respiratory: No cough, no shortness of air, no recurring pulmonary infections Cardiovascular/peripheral vascular: No chest pain, no palpitations, no edema, no shortness of breath Gastrointestinal: No new onset incontinence, normal bowel movements reported Genitourinary: No new onset incontinence Musculoskeletal: Low back pain Psychiatric: [Normal mood/affect] Neurological: [Denies weakness in extremities], [denies balance issues] Objective:: Physical Exam: General: Alert and oriented x3, no acute distress, pleasant and cooperative Lungs: Respirations even and unlabored, symmetrical chest expansion Eyes: PERRL Musculoskeletal: Flexion and extension of lumbar [spine] somewhat guarded secondary to pain, [antalgic gait noted] Neurological: Speech clear, no gross sensory deficit Assessment:: Degenerative disc disease of lumbar spine with lumbar radiculopathy symptoms, degenerative disc disease of thoracic spine with thoracic radiculopathy symptoms, chronic pain syndrome Plan:: Patient has had significant improvement following her lumbar epidural and does not require any additional injection therapy at this time. Patient will return to clinic in 1 month for reevaluation of symptoms and plan of care. Patient has been instructed to contact the clinic with any concerns before the next appointment. Dr. Brown has reviewed this note and agrees with this plan of care. This note was dictated using voice recognition software and make contain errors or omissions. [facility] Disclaimer: The information contained in this section may have been updated after the patient was seen, as this information can be updated by other users. Medical History COPD mixed type Thrombosis Hemorrhoids Cataract Hypokalemia Claudication Pleural effusion, left Stopped smoking with greater than 30 pack year history Dyspnea on exertion Edema HHD (hypertensive heart disease) Elevated left ventricular end-diastolic pressure (LVEDP) CAD (coronary artery disease) Numbness Coronary artery calcification seen on CT scan COPD (chronic obstructive pulmonary disease) Tobacco abuse PRAKASH on CPAP SOB (shortness of breath) HTN (hypertension) Vitamin D deficiency (~11/21/17) Hyperlipidemia (~11/21/17) Surgical History History of carpal tunnel release History of cholecystectomy H/O: hysterectomy History of intestinal surgery Family History Other No significant family history Social History Smoking Status: Current some day smoker tobacco type: cigarettes packs per day: 1 second hand exposure: Yes alcohol intake: never substance use type: marijuana current occupational status: other Travel in the last 8 weeks: None household members: spouse housing: house current occupational exposures/hazards: No caffeine: No
[2023-12-16 10:39] VITALS: BP 157/78; PULSE 56; RESP 18; O2SAT 96; BMI 29.2
== END 2023-12-16 23:59 | disposition home or self-care (01) ==
LOC: SC.PAIN 09:13
PROVIDERS: PCP Family Medicine; Visit Provider Nurse Practitioner Family
DX: G89.4 Chronic pain syndrome (principal); M51.35 Other intervertebral disc degeneration, thoracolumbar region; M54.15 Radiculopathy, thoracolumbar region
CPT/HCPCS: 99212; G0463

== ENCOUNTER 2023-12-25 11:03 | Outpatient (CLI) | payer MEDICARE, MEDICAID, SELFPAY ==
--- NOTE | 2023-12-25 11:03 | MM_ITS ---
PROCEDURE INFORMATION: Exam: MG Bilateral Screening 3D Mammography Exam date and time: 12/25/2023 10:50 AM Age: 68 years old Clinical indication: Screening mammogram TECHNIQUE: Imaging protocol: Bilateral Screening tomosynthesis and 2D mammography including computer-aided detection (CAD) when performed. COMPARISON: 1. MG MM DIG SCREENING MAMM BI W/CAD 12/20/2022 10:25 AM 2. MG DIG MAMM-SCREEN GUIDO 01/08/2019 10:08 AM 3. MG DMSB DIG MAMM-SCREEN GUIDO 12/23/2015 4:29 PM 4. MG DMSB DIG MAMM-SCREEN GUIDO 12/10/2014 11:04 AM FINDINGS: MAMMOGRAPHY: Breast composition: There are scattered areas of fibroglandular density. Mass: None. Architectural distortion: No new or suspicious architectural distortion. Calcifications: No new or suspicious calcifications are present Asymmetric density: No new or suspicious asymmetric density is present Skin thickening: None. Axillary adenopathy: None. IMPRESSION: No mammographic evidence of malignancy. Recommend annual screening mammography unless otherwise clinically indicated. ASSESSMENT: BI-RADS category 1: Negative.
== END 2023-12-25 23:59 | disposition home or self-care (01) ==
LOC: RAD 11:03
PROVIDERS: PCP Family Medicine; Visit Provider Family Medicine
DX: Z12.31 Encounter for screening mammogram for malignant neoplasm of breast (principal)
CPT/HCPCS: 77063; 77067

== ENCOUNTER 2024-01-02 09:21 | Outpatient (POV) | payer MEDICARE, MEDICAID, SELFPAY ==
[2024-01-02 09:35] VITALS: BP 87/53; PULSE 50; RESP 18; O2SAT 95; BMI 29.5
--- NOTE | 2024-01-02 10:14 | EXP.PAIN.SOA ---
[facility] Disclaimer: The information contained in this section may have been updated after the patient was seen, as this information can be updated by other users. Medical History COPD mixed type Thrombosis Hemorrhoids Cataract Hypokalemia Claudication Pleural effusion, left Stopped smoking with greater than 30 pack year history Dyspnea on exertion Edema HHD (hypertensive heart disease) Elevated left ventricular end-diastolic pressure (LVEDP) CAD (coronary artery disease) Numbness Coronary artery calcification seen on CT scan COPD (chronic obstructive pulmonary disease) Tobacco abuse PRAKASH on CPAP SOB (shortness of breath) HTN (hypertension) Vitamin D deficiency (~11/21/17) Hyperlipidemia (~11/21/17) Surgical History History of carpal tunnel release History of cholecystectomy H/O: hysterectomy History of intestinal surgery Family History Other No significant family history Social History Smoking Status: Current some day smoker tobacco type: cigarettes packs per day: 1 second hand exposure: Yes alcohol intake: never substance use type: marijuana current occupational status: other Travel in the last 8 weeks: None household members: spouse housing: house current occupational exposures/hazards: No caffeine: No PM Subjective & Objective Subjective Subjective:: Patient is a pleasant 68-year-old female who presents today for follow-up and worsening pain. Today she rates her pain a 7 out of 10. Patient states she is having a lot of pain in and around her low back and hips. She describes it as an aching, throbbing sensation that does go in and around her buttocks area. She states that certain activities such as bending or walking seem to aggravate her symptoms. She does state that the pain interferes with her ability perform activities of daily living such as cooking and cleaning. She is interested in any help we may be able to provide. Patient does typically get good improvement with injections in the past and would like to see about an injection for this pain. Patient is prescribed tizanidine 4 mg 3 times a day and ropinirole 0.25 mg at night from our office along with compounded cream. She denies any side effects from this medication. She is prescribed Percocet from her primary care. Her Joshua has been reviewed and is appropriate. Review of Systems: General: No recent weight changes, no fever, no sleep disturbances Respiratory: No cough, no shortness of air, no recurring pulmonary infections Cardiovascular/peripheral vascular: No chest pain, no palpitations, no edema, no shortness of breath Gastrointestinal: No new onset incontinence, normal bowel movements reported Genitourinary: No new onset incontinence Musculoskeletal: Low back pain, bilateral hip pain Psychiatric: [Normal mood/affect] Neurological: [Denies weakness in extremities], [denies balance issues] Pain at rest (0-10 scale): 7 Objective Objective:: Physical Exam: General: Alert and oriented x3, no acute distress, pleasant and cooperative Lungs: Respirations even and unlabored, symmetrical chest expansion Eyes: PERRL Musculoskeletal: Flexion and extension of lumbar [spine] somewhat guarded secondary to pain, [antalgic gait noted] point tenderness along bilateral SIs with positive bilateral Marquis's, Niyah's, Gaenslen's, compression and distraction exam Neurological: Speech clear, no gross sensory deficit Has patient had previous pain injection?: No Conservative treatment options previously tried: Home exercise plan Length of treatment: Longer than 6 weeks and Prescription medications Length of treatment: Longer than 6 weeks Meds Home Medications and Allergies Home Medications Medication Instructions Recorded Confirmed Type ergocalciferol (vitamin D2) 1,250 1,250 mcg PO WEEKLY Supplement 09/23/23 01/02/24 History mcg (50,000 unit) capsule (Drisdol) fluticasone propionate 50 1 inh inhalation BIDP PRN allergies 09/23/23 01/02/24 History mcg/actuation blister powder for inhalation multivitamin 1 tab PO DAILY 09/23/23 01/02/24 History ondansetron 4 mg disintegrating 4 mg PO Q8HP PRN nausea/vomiting 09/23/23 01/02/24 History tablet potassium chloride 20 mEq 20 meq PO DAILY Supplement #90 tabs 09/30/23 01/02/24 Rx tablet,extended release(part/cryst) (Klor-Con M) alendronate 70 mg tablet 70 mg PO WEEKLY OSTEOARTHRITIS #14 11/01/23 01/02/24 Rx tabs apixaban 5 mg tablet 5 mg PO BID . #60 tabs 11/01/23 01/02/24 Rx bupropion HCl 75 mg tablet 75 mg PO BID Depression #120 tabs 11/01/23 01/02/24 Rx levothyroxine 50 mcg tablet 50 mcg PO DAILY thyroid function 11/01/23 01/02/24 Rx #90 tabs pantoprazole 40 mg tablet,delayed 40 mg PO DAILY STOMACH #90 tabs 11/01/23 01/02/24 Rx release rosuvastatin 20 mg tablet 20 mg PO HS Cholesterol #90 tabs 11/01/23 01/02/24 Rx trazodone 100 mg tablet 100 mg PO HS SLEEP #90 tabs 11/01/23 01/02/24 Rx ropinirole 0.25 mg tablet 0.25 mg PO HS restless leg 11/15/23 01/02/24 Rx syndrome #30 tabs tizanidine 4 mg tablet (Zanaflex) 4 mg PO TID PRN muscle spasms #90 11/15/23 01/02/24 Rx tabs gabapentin 100 mg capsule 100 mg PO BID 11/27/23 01/02/24 History methenamine hippurate 1 gram tablet 1 g PO BID 11/27/23 01/02/24 History RSVPreF3 antigen-AS01E 0.5 ml IM ONCE #1 ea 12/03/23 01/02/24 Rx adjuvant(PF) 120 mcg/0.5 mL IM suspension, kit (Arexvy (PF)) albuterol sulfate 90 mcg/actuation 2 puff inhalation QIDP PRN sob 12/03/23 01/02/24 Rx aerosol inhaler #8.5 grams tiotropium 2.5 mcg-olodaterol 2.5 2 puff inhalation DAILY Breathing 12/03/23 01/02/24 Rx mcg/actuation mist for inhalation problems #4 grams (Stiolto Respimat) oxycodone-acetaminophen 5 mg-325 1 tab PO Q8H PRN pain #90 tabs 12/04/23 01/02/24 Rx mg tablet (Percocet) carvedilol 3.125 mg tablet (Coreg) 3.125 mg PO BID 90 days #180 tabs 12/06/23 01/02/24 Rx New Prescriptions to Start Prescriptions: Allergies Allergy/AdvReac Type Severity Reaction Status Date / Time codeine Allergy Intermediate I-HIVES Verified 12/10/23 10:50 sulfamethoxazole Allergy Intermediate I-HIVES Verified 12/10/23 10:50 [From Septra] trimethoprim [From Septra] Allergy Intermediate I-HIVES Verified 12/10/23 10:50 ibuprofen [IBUPROFEN] Allergy Unknown VOMITING Verified 12/10/23 10:50 Assessment and Plan *Assessment and plan (1) Bilateral sacroiliitis: Status: Acute Category: Medical Code(s): M46.1 - Sacroiliitis, not elsewhere classified (2) Low back pain: Status: Acute Qualifiers: Chronicity: chronic Back pain laterality: bilateral Sciatica presence: with sciatica Sciatica laterality: bilateral sciatica Qualified Code(s): M54.42 - Lumbago with sciatica, left side; M54.41 - Lumbago with sciatica, right side; G89.29 - Other chronic pain Category: Medical Code(s): M54.50 - Low back pain, unspecified Plan Patient is experiencing worsening pain in her low back and bilateral hips with point tenderness along her bilateral SIs and positive bilateral Marquis's, Niyah's, Gaenslen's, compression and distraction exam. I have discussed with the patient that she may benefit from bilateral SI injections. Risk and benefits were discussed with the patient and she would like to proceed forward with this plan of care. Patient has tried and failed conservative therapies including oral medications, heat and ice, topicals, continued at home stretching exercise for longer than 6 weeks. Patient is unable to tolerate current physical therapy due to significant COPD and heart history. I will also increase her ropinirole to 0.5 mg at bedtime and provide a 1 month supply of this medication along with her tizanidine. Patient is agreeable to this. Patient will be submitted for bilateral SI injections under fluoroscopy. Patient did have low blood pressure during today's visit on both initial checking and before she left. Patient is scheduled to see her primary care tomorrow and was counseled to review the findings with him to see if medication changes need to be made. Patient has been instructed to contact the clinic with any concerns before the next appointment. Dr. Brown has reviewed this note and agrees with this plan of care. This note was dictated using voice recognition software and make contain errors or omissions.
== END 2024-01-02 23:59 | disposition home or self-care (01) ==
PROVIDERS: PCP Family Medicine; Visit Provider Nurse Practitioner Family
DX: M46.1 Sacroiliitis, not elsewhere classified (principal); M54.42 Lumbago with sciatica, left side; M54.41 Lumbago with sciatica, right side; G89.29 Other chronic pain
CPT/HCPCS: 99212; G0463

== ENCOUNTER 2024-01-27 14:41 | Outpatient (POV) | payer MEDICARE, MEDICAID, SELFPAY ==
[2024-01-27 14:47] VITALS: BP 111/69; PULSE 64; RESP 18; O2SAT 94; BMI 28.5
--- NOTE | 2024-01-27 15:04 | A.OFFVIS_ITS ---
[facility] Disclaimer: The information contained in this section may have been updated after the patient was seen, as this information can be updated by other users. Medical History COPD mixed type Thrombosis Hemorrhoids Cataract Hypokalemia Claudication Pleural effusion, left Stopped smoking with greater than 30 pack year history Dyspnea on exertion Edema HHD (hypertensive heart disease) Elevated left ventricular end-diastolic pressure (LVEDP) CAD (coronary artery disease) Numbness Coronary artery calcification seen on CT scan COPD (chronic obstructive pulmonary disease) Tobacco abuse PRAKASH on CPAP SOB (shortness of breath) HTN (hypertension) Vitamin D deficiency (~11/21/17) Hyperlipidemia (~11/21/17) Surgical History History of carpal tunnel release History of cholecystectomy H/O: hysterectomy History of intestinal surgery Family History Other No significant family history Social History Smoking Status: Current some day smoker tobacco type: cigarettes packs per day: 1 second hand exposure: Yes alcohol intake: never substance use type: marijuana current occupational status: other Travel in the last 8 weeks: None household members: spouse housing: house current occupational exposures/hazards: No caffeine: No PM Subjective & Objective Subjective Subjective:: Patient is a pleasant 68-year-old female who presents today for follow-up of bilateral SI injections ordered. Today she rates her pain a 7 out of 10. She denies any new changes or any new injuries. She continues to have chronic pain in her low back and hips.. She describes it as an aching, throbbing sensation that is constant. She states that certain activities such as bending or walking seem to aggravate her symptoms. The pain interferes with her ability perform activities of daily living such as cooking and cleaning. Patient has had epidurals in her mid back and low back however she has never had any in our office for this type of injection. Patient would still like to proceed forward with ordering this injection. Patient states the pain just continues to be severe and interfere with the simplest activities. Patient is prescribed tizanidine 4 mg 3 times a day and ropinirole 0.25 mg at night from our office along with compounded cream. She denies any side effects from this medication. She is prescribed Percocet from her primary care. She is requesting refills on her compounded cream. Her Joshua has been reviewed and is appropriate. Review of Systems: General: No recent weight changes, no fever, no sleep disturbances Respiratory: No cough, no shortness of air, no recurring pulmonary infections Cardiovascular/peripheral vascular: No chest pain, no palpitations, no edema, no shortness of breath Gastrointestinal: No new onset incontinence, normal bowel movements reported Genitourinary: No new onset incontinence Musculoskeletal: Low back pain, bilateral hip pain Psychiatric: [Normal mood/affect] Neurological: [Denies weakness in extremities], [denies balance issues] Pain at rest (0-10 scale): 7 Objective Objective:: Physical Exam: General: Alert and oriented x3, no acute distress, pleasant and cooperative Lungs: Respirations even and unlabored, symmetrical chest expansion Eyes: PERRL Musculoskeletal: Flexion and extension of lumbar [spine] somewhat guarded secondary to pain, [antalgic gait noted] point tenderness along bilateral SIs with positive bilateral Marquis's, Niyah's, Gaenslen's, compression and distraction exam Neurological: Speech clear, no gross sensory deficit Has patient had previous pain injection?: No Conservative treatment options previously tried: Home exercise plan Length of treatment: Longer than 6 weeks and Prescription medications Length of treatment: Longer than 6 weeks Meds Home Medications and Allergies Home Medications ?Medication ?Instructions ?Recorded ?Confirmed ?Type fluticasone propionate 50 1 inh inhalation BIDP PRN allergies 09/23/23 01/03/24 History mcg/actuation blister powder for inhalation multivitamin 1 tab PO DAILY 09/23/23 01/03/24 History ondansetron 4 mg disintegrating 4 mg PO Q8HP PRN nausea/vomiting 09/23/23 01/03/24 History tablet potassium chloride 20 mEq 20 meq PO DAILY Supplement #90 tabs 09/30/23 01/03/24 Rx tablet,extended release(part/cryst) (Klor-Con M) alendronate 70 mg tablet 70 mg PO WEEKLY OSTEOARTHRITIS #14 11/01/23 01/03/24 Rx tabs apixaban 5 mg tablet 5 mg PO BID . #60 tabs 11/01/23 01/03/24 Rx bupropion HCl 75 mg tablet 75 mg PO BID Depression #120 tabs 11/01/23 01/03/24 Rx levothyroxine 50 mcg tablet 50 mcg PO DAILY thyroid function 11/01/23 01/03/24 Rx #90 tabs pantoprazole 40 mg tablet,delayed 40 mg PO DAILY STOMACH #90 tabs 11/01/23 01/03/24 Rx release rosuvastatin 20 mg tablet 20 mg PO HS Cholesterol #90 tabs 11/01/23 01/03/24 Rx trazodone 100 mg tablet 100 mg PO HS SLEEP #90 tabs 11/01/23 01/03/24 Rx methenamine hippurate 1 gram tablet 1 g PO BID 11/27/23 01/03/24 History RSVPreF3 antigen-AS01E 0.5 ml IM ONCE #1 ea 12/03/23 01/03/24 Rx adjuvant(PF) 120 mcg/0.5 mL IM suspension, kit (Arexvy (PF)) albuterol sulfate 90 mcg/actuation 2 puff inhalation QIDP PRN sob 12/03/23 01/03/24 Rx aerosol inhaler #8.5 grams tiotropium 2.5 mcg-olodaterol 2.5 2 puff inhalation DAILY Breathing 12/03/23 01/03/24 Rx mcg/actuation mist for inhalation problems #4 grams (Stiolto Respimat) carvedilol 3.125 mg tablet (Coreg) 3.125 mg PO BID 90 days #180 tabs 12/06/23 01/03/24 Rx ropinirole 0.5 mg tablet 0.5 mg PO HS #30 tabs 01/02/24 01/03/24 Rx tizanidine 4 mg tablet (Zanaflex) 4 mg PO TID PRN muscle spasms #90 01/02/24 01/03/24 Rx tabs gabapentin 100 mg capsule 100 mg PO BID #60 caps 01/03/24 01/03/24 Rx oxycodone-acetaminophen 5 mg-325 1 tab PO Q8H PRN pain #90 tabs 01/03/24 01/03/24 Rx mg tablet (Percocet) ergocalciferol (vitamin D2) 1,250 1,250 mcg PO WEEKLY Supplement #5 01/20/24 Rx mcg (50,000 unit) capsule (Drisdol) caps ropinirole 0.25 mg tablet See Rx Instructions .Route 01/23/24 Rx .COMPLEX #30 tabs ropinirole 0.5 mg tablet 0.5 mg PO HS #30 tabs 01/23/24 Rx New Prescriptions to Start Prescriptions: Allergies Allergy/AdvReac Type Severity Reaction Status Date / Time codeine Allergy Intermediate I-HIVES Verified 01/03/24 10:19 sulfamethoxazole Allergy Intermediate I-HIVES Verified 01/03/24 10:19 [From ] trimethoprim [From ] Allergy Intermediate I-HIVES Verified 01/03/24 10:19 ibuprofen [IBUPROFEN] Allergy Unknown VOMITING Verified 01/03/24 10:19 Assessment and Plan *Assessment and plan (1) Bilateral sacroiliitis: Status: Acute Category: Medical Code(s): M46.1 - Sacroiliitis, not elsewhere classified Plan Patient continues to experience worsening pain in her low back and bilateral hips. She did have point tenderness along her bilateral SIs and positive bilateral Marquis's, Niyah's, Gaenslen's, compression and distraction exam. I did again review over the risk and benefits of the SI injections and she would like to proceed forward with this plan of care. Patient has not had any sacroiliac joint injections from our office. Patient has had only epidurals and so we are unable to say how she will respond to these injections patient has tried and failed conservative therapies including oral medications, heat and ice, topicals, continued at home stretching exercise for longer than 6 weeks. Patient is unable to tolerate current physical therapy due to significant COPD and heart history. I will also refill the patient's compounded cream for 5 additional refills. Patient will be submitted for bilateral SI injections under fluoroscopy. Patient has been instructed to contact the clinic with any concerns before the next appointment. Dr. Brown has reviewed this note and agrees with this plan of care. This note was dictated using voice recognition software and make contain errors or omissions. All injections are used with Lidocaine or Bupivacaine and Depo Medrol.
== END 2024-01-27 23:59 | disposition home or self-care (01) ==
LOC: SC.PAIN 14:42
PROVIDERS: PCP Family Medicine; Visit Provider Nurse Practitioner Family
DX: M46.1 Sacroiliitis, not elsewhere classified (principal); Z73.89 Other problems related to life management difficulty; Z79.899 Other long term (current) drug therapy
CPT/HCPCS: 99212; G0463

== ENCOUNTER 2024-02-11 08:44 | Day surgery (SDC) | payer MEDICARE, MEDICAID, SELFPAY ==
[2024-02-11 09:00] VITALS: BP 115/76; PULSE 71; RESP 16; TEMP 36.5; O2SAT 95; BMI 29.2
--- NOTE | 2024-02-11 09:20 | P.PCN_ITS ---
Procedure Date: 02/11/24 Time: 09:07 Anesthesiologist:: Wilian Griggs CRNA Complications:: None Pre-procedure Diagnosis:: Bilateral sacroiliitis Post-procedure Diagnosis:: Same. Indications for Procedure:: Patient is a very pleasant 68-year-old female who comes our clinic today for bilateral sacroiliac joint injections of cortisone and local anesthetic. Patient describes bilateral posterior hip pain is constant, dull, aching. Patient reports having difficulty transitioning from sitting to standing. She rates her pain 8/10. Procedure Details:: Procedure: Bilateral sacroiliac joint injections under fluoroscopy Informed consent was obtained and the risks and benefits of the procedure were explained to the patient.~ The patient was taken to the procedure room and noninvasive monitors were placed including a noninvasive blood pressure cuff and pulse oximeter.~ The patient was placed prone on the procedure table. Both hips were cleansed using Betadine as a cleansing solution. C-arm fluoroscopy was used to view the right sacroiliac joint.~ The skin and subcutaneous tissues were anesthetized using lidocaine 1.5% and a 25-gauge needle.~ After this, a 22-gauge spinal needle was inserted under fluoroscopic guidance into the inferior aspect of the right sacroiliac joint.~ Omnipaque dye was injected and good spread was seen throughout the joint.~ After this, approximately 5 mL of bupivacaine, 0.25% and Depo-Medrol, 40 mg was incrementally injected into the right sacroiliac joint. We then moved to the left sacroiliac joint.~ The skin and subcutaneous tissues were anesthetized using lidocaine 1.5% and a 25-gauge needle.~ After this, a 22- gauge spinal needle was inserted under fluoroscopic guidance into the inferior aspect of the left sacroiliac joint.~ Omnipaque dye was injected and good spread was seen throughout the joint. After this, approximately 5 mL of bupivacaine, 0.25% and Depo-Medrol, 40 mg was incrementally injected into the left sacroiliac joint.~ The patient tolerated the procedure well with no complications. The patient was observed in the Pain Clinic and then was discharged home neurologically intact. Plan and Disposition:: Patient was discharged without incident.
[2024-02-11 09:21] VITALS: BP 126/71; PULSE 70; RESP 16; O2SAT 95
[2024-02-11] MEDS: LIDOCAINE 1% 5ML PF VIAL 5 ML (09:23)
[2024-02-11] MEDS: methylPREDNISolone ACETATE 80MG/ML VIAL 80 MG (09:23)
[2024-02-11 09:24] VITALS: BP 111/72; PULSE 73; RESP 18; O2SAT 94
[2024-02-11] MEDS: BUPIVACAINE 0.25% 10ML INJ 25 MG IJ (09:24)
[2024-02-11 09:25] VITALS: BP 111/72; PULSE 73; RESP 18; O2SAT 94
== END 2024-02-11 09:21 | disposition home or self-care (01) ==
PROVIDERS: PCP Family Medicine; Visit Provider Nurse Anesthetist, Certified Registered
DX: M46.1 Sacroiliitis, not elsewhere classified (principal)
CPT/HCPCS: 27096; G0260; J1010

== ENCOUNTER 2024-03-09 10:00 | Outpatient (POV) | payer MEDICARE, MEDICAID, SELFPAY ==
[2024-03-09 10:28] VITALS: BP 131/85; PULSE 72; RESP 16; O2SAT 94; BMI 29.2
--- NOTE | 2024-03-09 10:52 | EXP.PAIN.SOA ---
[facility] Disclaimer: The information contained in this section may have been updated after the patient was seen, as this information can be updated by other users. Medical History COPD mixed type Thrombosis Hemorrhoids Cataract Hypokalemia Claudication Pleural effusion, left Stopped smoking with greater than 30 pack year history Dyspnea on exertion Edema HHD (hypertensive heart disease) Elevated left ventricular end-diastolic pressure (LVEDP) CAD (coronary artery disease) Numbness Coronary artery calcification seen on CT scan COPD (chronic obstructive pulmonary disease) Tobacco abuse PRAKASH on CPAP SOB (shortness of breath) HTN (hypertension) Vitamin D deficiency (~11/21/17) Hyperlipidemia (~11/21/17) Surgical History History of carpal tunnel release History of cholecystectomy H/O: hysterectomy History of intestinal surgery Family History Other No significant family history Social History Smoking Status: Current some day smoker tobacco type: cigarettes packs per day: 1 second hand exposure: Yes alcohol intake: never substance use type: marijuana current occupational status: other Travel in the last 8 weeks: None household members: spouse housing: house current occupational exposures/hazards: No caffeine: No PM Subjective & Objective Subjective Subjective:: Patient is a pleasant 68-year-old female who presents today for follow-up of bilateral SI injections. Today she rates her pain a 5 out of 10. She does state that the injections helped at least 80% and that the pain is definitely not as severe and is more manageable. She does state a lot of her pain today however is more related to her mid back and her toes. Patient states she continues to have numbness in her toes with the big toe being the worst on both of her feet however this is nothing new and has been going on for the last 2 years. Patient does state that the pain in her mid back is worse than the toes and that it is fairly constant with numbness and tingling that radiates down. Patient has had a thoracic epidural in the past that did provide significant relief of 60% or more lasting up until about the last month. Patient states that she is interested in repeating this injection. She does state that the mid back pain is interfering with her ability perform activities of daily living such as cooking and cleaning. Patient is managed with tizanidine 4 mg 3 times a day, ropinirole 0.25 mg at bedtime and compounded cream. She denies any side effects from this medication. Her Joshua has been reviewed and is appropriate. Review of Systems: General: No recent weight changes, no fever, no sleep disturbances Respiratory: No cough, no shortness of air, no recurring pulmonary infections Cardiovascular/peripheral vascular: No chest pain, no palpitations, no edema, no shortness of breath Gastrointestinal: No new onset incontinence, normal bowel movements reported Genitourinary: No new onset incontinence Musculoskeletal: Mid back pain, abdominal pain/rib pain Psychiatric: [Normal mood/affect] Neurological: [Denies weakness in extremities], [denies balance issues] Pain at rest (0-10 scale): 5 Objective Objective:: Physical Exam: General: Alert and oriented x3, no acute distress, pleasant and cooperative Lungs: Respirations even and unlabored, symmetrical chest expansion Eyes: PERRL Musculoskeletal: Flexion and extension of thoracic [spine] somewhat guarded secondary to pain, [antalgic gait noted] Neurological: Speech clear, no gross sensory deficit Has patient had previous pain injection?: Yes Percent improvement in pain since last injection: 80% Conservative treatment options previously tried: Home exercise plan Length of treatment: Longer than 12 weeks Meds Home Medications and Allergies Home Medications ?Medication ?Instructions ?Recorded ?Confirmed ?Type fluticasone propionate 50 1 inh inhalation BIDP PRN allergies 09/23/23 03/09/24 History mcg/actuation blister powder for inhalation multivitamin 1 tab PO DAILY 09/23/23 03/09/24 History ondansetron 4 mg disintegrating 4 mg PO Q8HP PRN nausea/vomiting 09/23/23 03/09/24 History tablet potassium chloride 20 mEq 20 meq PO DAILY Supplement #90 tabs 09/30/23 03/09/24 Rx tablet,extended release(part/cryst) (Klor-Con M) alendronate 70 mg tablet 70 mg PO WEEKLY OSTEOARTHRITIS #14 11/01/23 03/09/24 Rx tabs apixaban 5 mg tablet 5 mg PO BID . #60 tabs 11/01/23 03/09/24 Rx bupropion HCl 75 mg tablet 75 mg PO BID Depression #120 tabs 11/01/23 03/09/24 Rx levothyroxine 50 mcg tablet 50 mcg PO DAILY thyroid function 11/01/23 03/09/24 Rx #90 tabs pantoprazole 40 mg tablet,delayed 40 mg PO DAILY STOMACH #90 tabs 11/01/23 03/09/24 Rx release rosuvastatin 20 mg tablet 20 mg PO HS Cholesterol #90 tabs 11/01/23 03/09/24 Rx trazodone 100 mg tablet 100 mg PO HS SLEEP #90 tabs 11/01/23 03/09/24 Rx methenamine hippurate 1 gram tablet 1 g PO BID 11/27/23 03/09/24 History RSVPreF3 antigen-AS01E 0.5 ml IM ONCE #1 ea 12/03/23 03/09/24 Rx adjuvant(PF) 120 mcg/0.5 mL IM suspension, kit (Arexvy (PF)) albuterol sulfate 90 mcg/actuation 2 puff inhalation QIDP PRN sob 12/03/23 03/09/24 Rx aerosol inhaler #8.5 grams tiotropium 2.5 mcg-olodaterol 2.5 2 puff inhalation DAILY Breathing 12/03/23 03/09/24 Rx mcg/actuation mist for inhalation problems #4 grams (Stiolto Respimat) carvedilol 3.125 mg tablet (Coreg) 3.125 mg PO BID 90 days #180 tabs 12/06/23 03/09/24 Rx tizanidine 4 mg tablet (Zanaflex) 4 mg PO TID PRN muscle spasms #90 01/02/24 03/09/24 Rx tabs ergocalciferol (vitamin D2) 1,250 1,250 mcg PO WEEKLY Supplement #5 01/20/24 03/09/24 Rx mcg (50,000 unit) capsule (Drisdol) caps oxycodone-acetaminophen 5 mg-325 1 tab PO Q8H PRN pain #90 tabs 01/31/24 03/09/24 Rx mg tablet (Percocet) gabapentin 100 mg capsule 100 mg PO BID #60 caps 02/28/24 03/09/24 Rx ropinirole 0.5 mg tablet 0.5 mg PO HS #30 tabs 02/28/24 03/09/24 Rx semaglutide (weight loss) 0.25 0.25 mg (0.5 mL) SQ WEEKLY #2.5 mL 03/02/24 03/09/24 Rx mg/0.5 mL subcutaneous pen injector (Wegovy) New Prescriptions to Start Prescriptions: Allergies Allergy/AdvReac Type Severity Reaction Status Date / Time codeine Allergy Intermediate I-HIVES Verified 02/11/24 08:57 sulfamethoxazole Allergy Intermediate I-HIVES Verified 02/11/24 08:57 [From ] trimethoprim [From Septra] Allergy Intermediate I-HIVES Verified 02/11/24 08:57 ibuprofen [IBUPROFEN] Allergy Unknown VOMITING Verified 02/11/24 08:57 Assessment and Plan *Assessment and plan (1) Degenerative disc disease, thoracic: Status: Acute Category: Medical Code(s): M51.34 - Other intervertebral disc degeneration, thoracic region (2) Thoracic radiculopathy: Status: Acute Category: Medical Code(s): M54.14 - Radiculopathy, thoracic region Plan Patient is experiencing significant pain throughout her mid back with radiating symptoms into her abdomen/ribs. Patient did have limited range of motion of her thoracic spine during today's visit. I did discuss with patient that she may benefit from repeat thoracic epidural steroid injection. Patient did have her last thoracic epidural in August 2023 with more than 60% relief lasting about 5 months. Risk and benefits were discussed with patient and she would like to proceed forward with this plan of care. Patient is currently on blood thinners and we will reach out to her provider to confirm she can stop this medication prior to this injection. Patient has tried and failed conservative therapy including continued at home stretching exercise for longer than 12 weeks. Patient will be scheduled for a thoracic epidural steroid injection T10-T11 under fluoroscopy. I will also refill her tizanidine and ropinirole. Patient has been instructed to contact the clinic with any concerns before the next appointment. Dr. Brown has reviewed this note and agrees with this plan of care. This note was dictated using voice recognition software and make contain errors or omissions. All injections are used with Lidocaine or Bupivacaine and Depo Medrol.
== END 2024-03-09 23:59 | disposition home or self-care (01) ==
PROVIDERS: PCP Family Medicine; Visit Provider Nurse Practitioner Family
DX: M51.14 Intervertebral disc disorders with radiculopathy, thoracic region (principal); F17.210 Nicotine dependence, cigarettes, uncomplicated; I25.10 Atherosclerotic heart disease of native coronary artery without angina pectoris; I10 Essential (primary) hypertension; J44.9 Chronic obstructive pulmonary disease, unspecified; F12.90 Cannabis use, unspecified, uncomplicated; Z73.89 Other problems related to life management difficulty; Z79.899 Other long term (current) drug therapy
CPT/HCPCS: 99212; G0463

== ENCOUNTER 2024-03-24 10:33 | Day surgery (SDC) | payer MEDICARE, MEDICAID, SELFPAY ==
[2024-03-24 10:53] VITALS: BP 106/55; PULSE 64; RESP 16; TEMP 36.6; O2SAT 92; BMI 28.8
[2024-03-24] MEDS: methylPREDNISolone ACETATE 80MG/ML VIAL 80 MG (11:04)
[2024-03-24 11:14] VITALS: BP 107/69; PULSE 67; RESP 18; O2SAT 93
--- NOTE | 2024-03-24 11:17 | EXP.PAIN.PRO ---
Procedure Date: 03/24/24 Time: 11:00 Anesthesiologist:: Wilian Griggs CRNA Complications:: None Pre-procedure Diagnosis:: Degenerative disc thoracic spine. Thoracic radiculopathy. Post-procedure Diagnosis:: Same. Indications for Procedure:: Patient is a very pleasant 68-year-old female who comes our clinic today for T11/10 thoracic epidural steroid injection. Patient has responded very well to this injection in the past. She describes thoracic back pain with radicular symptoms bilaterally. She rates her pain 7/10. Patient reports responding very well from previous injection same level lasting 6 months. Procedure Details:: Procedure:Thoracic epidural steroid injection under fluoroscopy Informed consent was obtained and the risks and benefits of the procedure were explained to the patient. The patient was taken to the procedure room and noninvasive monitors placed, including noninvasive blood pressure cuff and pulse oximeter. The back was viewed using C-Arm fluoroscopy and prepped using Betadine as a cleansing solution and the T10-11 interspace was palpated. Skin and subcutaneous tissues were anesthetized using lidocaine 1.5% and a 25-gauge needle. After this, an 18-gauge Touhy epidural needle was placed into the T10-11 interspace and advanced using fluoroscopic guidance and loss of resistance to air until the epidural space was encountered. After confirmation of needle placement in the epidural space, with dye, a solution containing lidocaine 1.5%, 4 mL and Depo-Medrol 80 mg were incrementally injected into the thoracic epidural space. The patient tolerated the procedure well with no complications. The patient was observed in the Pain Clinic and then discharged home neurologically intact. Plan and Disposition:: Patient was discharged without incident.
== END 2024-03-24 11:14 | disposition home or self-care (01) ==
LOC: SC.PAINP 10:34
PROVIDERS: PCP Family Medicine; Visit Provider Nurse Anesthetist, Certified Registered
DX: M51.14 Intervertebral disc disorders with radiculopathy, thoracic region (principal)
CPT/HCPCS: 62321; J1010

== ENCOUNTER 2024-03-27 14:56 | Outpatient (CLI) | payer MEDICARE, MEDICAID, SELFPAY ==
--- NOTE | 2024-03-27 14:56 | CT_ITS ---
FINAL REPORT TECHNIQUE: Axial CT images of the chest were obtained without contrast. Low-dose protocol was utilized. This study was performed with techniques to keep radiation doses as low as reasonably achievable (ALARA). Individualized dose reduction techniques using automated exposure control or adjustment of mA and/or kV according to the patient's size were employed. CLINICAL HISTORY: lung cancer screening, former smoker, quit 6 years ago, smoked 1ppd for 40yrs COMPARISON: CT chest 03/12/2023 FINDINGS: CT CHEST WITHOUT, LOW DOSE SCREENING CT Di Vol: 2.90 mGy DLP: 101.07 mGy*cm There is no axillary, mediastinal, or hilar adenopathy. The heart size is normal. There is no pleural or pericardial effusion. The lung windows show a 5 mm nodule in the posterior right middle lobe well seen on image 173 of series 2. This was not clearly present on the previous study. There is a small nodular density in the posterior right lower lobe measuring 5 mm well seen on image 212 of series 2, also not clearly seen on the previous study. There is biapical pleural and parenchymal scarring. Scarring is noted at the left lung base. Limited images of the upper abdomen demonstrate no acute findings. IMPRESSION: Two new 5 mm nodules. LR Category 3: 6 month follow-up low-dose chest CT is recommended per Fleischner criteria. Reviewed, Interpreted and Dictated by Michael Avery MD Transcribed by Heather Lemons Authenticated and [facility]
== END 2024-03-27 23:59 | disposition home or self-care (01) ==
LOC: RAD 14:56
PROVIDERS: PCP Family Medicine; Visit Provider Internal Medicine Pulmonary Disease
DX: F17.210 Nicotine dependence, cigarettes, uncomplicated (principal)
CPT/HCPCS: 71271

== ENCOUNTER 2024-03-31 13:00 | Outpatient (CLI) | payer MEDICARE, MEDICAID, SELFPAY ==
--- NOTE | 2024-03-31 13:02 | XR_ITS ---
FINAL REPORT CLINICAL HISTORY: Left foot fracture, acute left foot pain. FINDINGS: Three views of the left foot were obtained. There is a nondisplaced fracture of the proximal first metatarsal. There is a small calcification along the proximal lateral aspect of the second metatarsal. Small chip fracture or avulsion fracture is not excluded in this region. There are mild degenerative changes. There is forefoot soft tissue swelling. IMPRESSION: Nondisplaced fracture of the proximal first metatarsal. Small calcification along the proximal lateral aspect of the second metatarsal. Small chip fracture or avulsion fracture is not excluded in this region. Reviewed, Interpreted and Dictated by Dez Low III, MD Transcribed by Kylah Simms PA-C Authenticated and . [facility]
== END 2024-03-31 23:59 | disposition home or self-care (01) ==
LOC: RAD 13:02
PROVIDERS: PCP Family Medicine; Visit Provider Physician Assistant
DX: S92.315A Nondisplaced fracture of first metatarsal bone, left foot, initial encounter for closed fracture (principal)
CPT/HCPCS: 73630

== ENCOUNTER 2024-04-16 10:28 | Outpatient (POV) | payer MEDICARE, MEDICAID, SELFPAY ==
--- NOTE | 2024-04-16 10:51 | A.OFFVIS_ITS ---
[facility] Disclaimer: The information contained in this section may have been updated after the patient was seen, as this information can be updated by other users. Medical History (Updated 04/08/24 @ 14:21 by Gilson Hendrix MD) History of pulmonary embolism COPD mixed type Thrombosis Hemorrhoids Cataract Hypokalemia Claudication Pleural effusion, left Stopped smoking with greater than 30 pack year history Dyspnea on exertion Edema HHD (hypertensive heart disease) Elevated left ventricular end-diastolic pressure (LVEDP) CAD (coronary artery disease) Numbness Coronary artery calcification seen on CT scan COPD (chronic obstructive pulmonary disease) Tobacco abuse PRAKASH on CPAP SOB (shortness of breath) HTN (hypertension) Vitamin D deficiency (~11/21/17) Hyperlipidemia (~11/21/17) Surgical History History of carpal tunnel release History of cholecystectomy H/O: hysterectomy History of intestinal surgery Family History Other No significant family history Social History (Updated 04/06/24 @ 10:40 by Namrata Henderson) Smoking Status: Former smoker tobacco type: cigarettes packs per day: 1 years smoked: 45 smoking status stop date: 2017 second hand exposure: Yes alcohol intake: never substance use type: marijuana current occupational status: other Travel in the last 8 weeks: None household members: spouse housing: house current occupational exposures/hazards: No caffeine: No PM Subjective & Objective Subjective Subjective:: Patient is a pleasant 68-year-old female who presents today for follow-up of t horacic epidural T10-T11 on 03/24/2024. Today she rates her pain a 7 out of 10. Patient states that she was doing well with this injection and it did provide 85% improvement up until she fell. Patient states that she ended up landing on her back and her left foot. She now has a couple of fractures in the foot and presents today in a cast. Patient states that they are monitoring this injury and that she is scheduled for a follow-up next Saturday for additional x-rays. Patient does state that overall her low back is still doing well from the last injection and it is more so pain related to the injury. She states that she feels like she may be offsetting how she walks due to the boot and causing worsening pain in other areas. Patient is requesting refills on her ropinirole and tizanidine as well as her compounded cream. Her Joshua has been reviewed and is appropriate. Review of Systems: General: No recent weight changes, no fever, no sleep disturbances Respiratory: No cough, no shortness of air, no recurring pulmonary infections Cardiovascular/peripheral vascular: No chest pain, no palpitations, no edema, no shortness of breath Gastrointestinal: No new onset incontinence, normal bowel movements reported Genitourinary: No new onset incontinence Musculoskeletal: Left foot pain Psychiatric: [Normal mood/affect] Neurological: [Denies weakness in extremities], [denies balance issues] Pain at rest (0-10 scale): 7 Objective Objective:: Physical Exam: General: Alert and oriented x3, no acute distress, pleasant and cooperative Lungs: Respirations even and unlabored, symmetrical chest expansion Eyes: PERRL Musculoskeletal: Flexion and extension of thoracic [spine] somewhat guarded secondary to pain, [antalgic gait noted] Neurological: Speech clear, no gross sensory deficit Has patient had previous pain injection?: Yes Percent improvement in pain since last injection: 85% Conservative treatment options previously tried: Home exercise plan Length of treatment: Longer than 12 weeks Meds Home Medications and Allergies Home Medications ?Medication ?Instructions ?Recorded ?Confirmed ?Type fluticasone propionate 50 1 inh inhalation BIDP PRN allergies 09/23/23 04/06/24 History mcg/actuation blister powder for inhalation multivitamin 1 tab PO DAILY 09/23/23 04/06/24 History ondansetron 4 mg disintegrating 4 mg PO Q8HP PRN nausea/vomiting 09/23/23 04/06/24 History tablet alendronate 70 mg tablet 70 mg PO WEEKLY OSTEOARTHRITIS #14 11/01/23 04/06/24 Rx tabs apixaban 5 mg tablet 5 mg PO BID . #60 tabs 11/01/23 04/06/24 Rx bupropion HCl 75 mg tablet 75 mg PO BID Depression #120 tabs 11/01/23 04/06/24 Rx levothyroxine 50 mcg tablet 50 mcg PO DAILY thyroid function 11/01/23 04/06/24 Rx #90 tabs pantoprazole 40 mg tablet,delayed 40 mg PO DAILY STOMACH #90 tabs 11/01/23 04/06/24 Rx release rosuvastatin 20 mg tablet 20 mg PO HS Cholesterol #90 tabs 11/01/23 04/06/24 Rx trazodone 100 mg tablet 100 mg PO HS SLEEP #90 tabs 11/01/23 04/06/24 Rx methenamine hippurate 1 gram tablet 1 g PO BID 11/27/23 04/06/24 History RSVPreF3 antigen-AS01E 0.5 ml IM ONCE #1 ea 12/03/23 04/06/24 Rx adjuvant(PF) 120 mcg/0.5 mL IM suspension, kit (Arexvy (PF)) albuterol sulfate 90 mcg/actuation 2 puff inhalation QIDP PRN sob 12/03/23 04/06/24 Rx aerosol inhaler #8.5 grams tiotropium 2.5 mcg-olodaterol 2.5 2 puff inhalation DAILY Breathing 12/03/23 04/06/24 Rx mcg/actuation mist for inhalation problems #4 grams (Stiolto Respimat) carvedilol 3.125 mg tablet (Coreg) 3.125 mg PO BID 90 days #180 tabs 12/06/23 04/06/24 Rx gabapentin 100 mg capsule 100 mg PO BID #60 caps 02/28/24 04/06/24 Rx ropinirole 0.5 mg tablet 0.5 mg PO HS #30 tabs 03/09/24 04/06/24 Rx semaglutide (weight loss) 0.25 0.25 mg SQ DIRECTED 03/09/24 04/06/24 History mg/0.5 mL subcutaneous pen injector (Rianna) tizanidine 4 mg tablet (Zanaflex) 4 mg PO TID PRN muscle spasms #90 03/09/24 04/06/24 Rx tabs ergocalciferol (vitamin D2) 1,250 1,250 mcg PO WEEKLY Supplement #5 03/19/24 04/06/24 Rx mcg (50,000 unit) capsule (Drisdol) caps oxycodone-acetaminophen 5 mg-325 1 tab PO Q8H PRN pain #90 tabs 04/03/24 04/06/24 Rx mg tablet (Percocet) semaglutide (weight loss) 0.25 0.25 mg (0.5 mL) SQ WEEKLY #2.5 mL 10/11/24 10/14/24 Rx mg/0.5 mL subcutaneous pen injector (Wegovy) potassium chloride 20 mEq See Rx Instructions .Route 04/14/24 Rx tablet,extended release(part/cryst) .COMPLEX #90 tabs New Prescriptions to Start Prescriptions: Allergies Allergy/AdvReac Type Severity Reaction Status Date / Time codeine Allergy Intermediate I-HIVES Verified 04/06/24 10:39 sulfamethoxazole Allergy Intermediate I-HIVES Verified 04/06/24 10:39 [From ] trimethoprim [From ] Allergy Intermediate I-HIVES Verified 04/06/24 10:39 ibuprofen [IBUPROFEN] Allergy Unknown VOMITING Verified 04/06/24 10:39 Assessment and Plan *Assessment and plan (1) Degenerative disc disease, thoracic: Status: Acute Category: Medical Code(s): M51.34 - Other intervertebral disc degeneration, thoracic region (2) Thoracic radiculopathy: Status: Acute Category: Medical Code(s): M54.14 - Radiculopathy, thoracic region (3) Fracture of first metatarsal bone of left foot: Status: Acute Category: Medical Code(s): S92.312A - Displaced fracture of first metatarsal bone, left foot, initial encounter for closed fracture (4) Fracture of left foot: Status: Acute Category: Medical Code(s): S92.902A - Unspecified fracture of left foot, initial encounter for closed fracture Plan I will refill the patient's tizanidine 4 mg 3 times a day, ropinirole 0.25 mg at bedtime and compounded cream and provide a 3-month supply of these medications. Patient will return to clinic in 2 months for reevaluation of symptoms and plan of care. Patient has been instructed to contact the clinic with any concerns before the next appointment. Dr. Brown has reviewed this note and agrees with this plan of care. This note was dictated using voice recognition software and make contain errors or omissions. All injections are used with Lidocaine or Bupivacaine and Depo Medrol.
[2024-04-16 11:34] VITALS: BP 96/65; PULSE 64; RESP 18; O2SAT 94; BMI 28.5
== END 2024-04-16 23:59 | disposition home or self-care (01) ==
PROVIDERS: PCP Family Medicine; Visit Provider Nurse Practitioner Family
DX: S92.312A Displaced fracture of first metatarsal bone, left foot, initial encounter for closed fracture; M51.14 Intervertebral disc disorders with radiculopathy, thoracic region; Z87.891 Personal history of nicotine dependence; Z79.899 Other long term (current) drug therapy
CPT/HCPCS: 99212; G0463

== ENCOUNTER 2024-04-21 13:17 | Outpatient (CLI) | payer MEDICARE, MEDICAID, SELFPAY ==
--- NOTE | 2024-04-21 13:21 | XR_ITS ---
PROCEDURE INFORMATION: Exam: XR Left Foot Exam date and time: 04/21/2024 1:22 PM Age: 68 years old Clinical indication: Injury or trauma; Fall; Other: Left foot FX f/u TECHNIQUE: Imaging protocol: Radiologic exam of the left foot. Views: 3 or more views. COMPARISON: CR XR FOOT LT MIN 3V 03/31/2024 1:06 PM FINDINGS: Bones/joints: Degenerative changes in the tarsometatarsal joints and 1st tarsometatarsal joint and tarsal bones. Osteopenia. There is no evidence of acute fracture.There is no evidence of malalignment or dislocation. Soft tissues: Normal. IMPRESSION: 1. Degenerative changes in the tarsometatarsal joints and 1st tarsometatarsal joint and tarsal bones. 2. There is no evidence of acute fracture.There is no evidence of malalignment or dislocation.
== END 2024-04-21 23:59 | disposition home or self-care (01) ==
LOC: RAD 13:18
PROVIDERS: PCP Family Medicine; Visit Provider Physician Assistant Surgical
DX: S92.312A Displaced fracture of first metatarsal bone, left foot, initial encounter for closed fracture (principal)
CPT/HCPCS: 73630

== ENCOUNTER 2024-05-12 12:28 | Outpatient (CLI) | payer MEDICARE, MEDICAID, SELFPAY ==
--- NOTE | 2024-05-12 12:31 | XR_ITS ---
FINAL REPORT CLINICAL HISTORY: fx fu COMPARISON: 03/31/2024 FINDINGS: LEFT FOOT Three views of the left foot demonstrate progressive healing of the nondisplaced fracture involving the base of the 1st proximal metatarsal. There is also a tiny density adjacent to the base of the 2nd metatarsal. The visualized joint spaces are normally aligned. The soft tissues are unremarkable. IMPRESSION: Interval healing 1st metatarsal fracture. Reviewed, Interpreted and Dictated by Michael Avery MD Transcribed by Heather Lemons Authenticated and . [facility]
== END 2024-05-12 23:59 | disposition home or self-care (01) ==
LOC: RAD 12:29
PROVIDERS: PCP Family Medicine; Visit Provider Physician Assistant Surgical
DX: S92.312A Displaced fracture of first metatarsal bone, left foot, initial encounter for closed fracture (principal)
CPT/HCPCS: 73630

== ENCOUNTER 2024-06-15 10:34 | Outpatient (POV) | payer MEDICARE, MEDICAID, SELFPAY ==
--- NOTE | 2024-06-15 11:04 | EXP.PAIN.SOA ---
[facility] Disclaimer: The information contained in this section may have been updated after the patient was seen, as this information can be updated by other users. Medical History History of pulmonary embolism COPD mixed type Thrombosis Hemorrhoids Cataract Hypokalemia Claudication Pleural effusion, left Stopped smoking with greater than 30 pack year history Dyspnea on exertion Edema HHD (hypertensive heart disease) Elevated left ventricular end-diastolic pressure (LVEDP) CAD (coronary artery disease) Numbness Coronary artery calcification seen on CT scan COPD (chronic obstructive pulmonary disease) Tobacco abuse PRAKASH on CPAP SOB (shortness of breath) HTN (hypertension) Vitamin D deficiency (~11/21/17) Hyperlipidemia (~11/21/17) Surgical History History of carpal tunnel release History of cholecystectomy H/O: hysterectomy History of intestinal surgery Family History Other No significant family history Social History Smoking Status: Former smoker tobacco type: cigarettes packs per day: 1 years smoked: 45 smoking status stop date: 2017 second hand exposure: Yes alcohol intake: never substance use type: marijuana current occupational status: other Travel in the last 8 weeks: None household members: spouse housing: house current occupational exposures/hazards: No caffeine: No PM Subjective & Objective Subjective Subjective:: Patient is a pleasant 68-year-old female who presents today for worsening pain and medication refill. Today she rates her pain a 6 out of 10. She denies any new trauma or injury. She is having increased pain throughout the low back and radiating into her lower legs. She describes it as an aching, throbbing sensation with numbness and tingling that goes into her legs and does interfere with her ability perform activities of daily living such as cooking and cleaning. Patient did previously get a lumbar epidural steroid injection back at the beginning of November that did provide more than 50% relief and lasted up until the last month or so. Patient states she is interested in repeating this injection because it did give overall improvement of her daily function with decreased pain symptoms. Patient does state that she is also been put on Wegovy from her PCP and this i she does need refills. She is also prescribed compounded cream from our office and Percocet from her PCP. Her Joshua has been reviewed and is appropriate. Review of Systems: General: No recent weight changes, no fever, no sleep disturbances Respiratory: No cough, no shortness of air, no recurring pulmonary infections Cardiovascular/peripheral vascular: No chest pain, no palpitations, no edema, no shortness of breath Gastrointestinal: No new onset incontinence, normal bowel movements reported Genitourinary: No new onset incontinence Musculoskeletal: Low back pain, bilateral leg pain Psychiatric: [Normal mood/affect] Neurological: [Denies weakness in extremities], [denies balance issues] Pain at rest (0-10 scale): 6 Objective Objective:: Physical Exam: General: Alert and oriented x3, no acute distress, pleasant and cooperative Lungs: Respirations even and unlabored, symmetrical chest expansion Eyes: PERRL Musculoskeletal: Flexion and extension of lumbar [spine] somewhat guarded secondary to pain, [antalgic gait noted] positive leg raise Neurological: Speech clear, no gross sensory deficit Has patient had previous pain injection?: No Conservative treatment options previously tried: Home exercise plan Length of treatment: Longer than 12 weeks Meds Home Medications and Allergies Home Medications ?Medication ?Instructions ?Recorded ?Confirmed ?Type fluticasone propionate 50 1 inh inhalation BIDP PRN allergies 09/23/23 05/29/24 History mcg/actuation blister powder for inhalation multivitamin 1 tab PO DAILY 09/23/23 05/29/24 History ondansetron 4 mg disintegrating 4 mg PO Q8HP PRN nausea/vomiting 09/23/23 05/29/24 History tablet alendronate 70 mg tablet 70 mg PO WEEKLY OSTEOARTHRITIS #14 11/01/23 05/29/24 Rx tabs apixaban 5 mg tablet 5 mg PO BID . #60 tabs 11/01/23 05/29/24 Rx bupropion HCl 75 mg tablet 75 mg PO BID Depression #120 tabs 11/01/23 05/29/24 Rx levothyroxine 50 mcg tablet 50 mcg PO DAILY thyroid function 11/01/23 05/29/24 Rx #90 tabs pantoprazole 40 mg tablet,delayed 40 mg PO DAILY STOMACH #90 tabs 11/01/23 05/29/24 Rx release rosuvastatin 20 mg tablet 20 mg PO HS Cholesterol #90 tabs 11/01/23 05/29/24 Rx trazodone 100 mg tablet 100 mg PO HS SLEEP #90 tabs 11/01/23 05/29/24 Rx methenamine hippurate 1 gram tablet 1 g PO BID 11/27/23 05/29/24 History RSVPreF3 antigen-AS01E 0.5 ml IM ONCE #1 ea 12/03/23 05/29/24 Rx adjuvant(PF) 120 mcg/0.5 mL IM suspension, kit (Arexvy (PF)) albuterol sulfate 90 mcg/actuation 2 puff inhalation QIDP PRN sob 12/03/23 05/29/24 Rx aerosol inhaler #8.5 grams tiotropium 2.5 mcg-olodaterol 2.5 2 puff inhalation DAILY Breathing 12/03/23 05/29/24 Rx mcg/actuation mist for inhalation problems #4 grams (Stiolto Respimat) semaglutide (weight loss) 0.25 0.25 mg SQ DIRECTED 03/09/24 05/29/24 History mg/0.5 mL subcutaneous pen injector (Wegovy) potassium chloride 20 mEq See Rx Instructions .Route 04/14/24 05/29/24 Rx tablet,extended release(part/cryst) .COMPLEX #90 tabs ropinirole 0.5 mg tablet 0.5 mg PO HS #30 tabs 04/16/24 05/29/24 Rx tizanidine 4 mg tablet (Zanaflex) 4 mg PO TID PRN muscle spasms #90 04/16/24 05/29/24 Rx tabs ergocalciferol (vitamin D2) 1,250 1,250 mcg PO WEEKLY Supplement #5 05/01/24 05/29/24 Rx mcg (50,000 unit) capsule (Drisdol) caps gabapentin 100 mg capsule 100 mg PO BID #60 caps 05/01/24 05/29/24 Rx semaglutide (weight loss) 0.5 0.5 mg (0.5 mL) SQ WEEKLY #2 mL 05/01/24 05/29/24 Rx mg/0.5 mL subcutaneous pen injector (Wegovy) oxycodone-acetaminophen 5 mg-325 1 tab PO Q8H PRN pain #90 tabs 12/06/24 12/06/24 Rx mg tablet (Percocet) carvedilol 3.125 mg tablet (Coreg) 3.125 mg PO BID 90 days #180 tabs 06/12/24 Rx New Prescriptions to Start Prescriptions: Allergies Allergy/AdvReac Type Severity Reaction Status Date / Time codeine Allergy Intermediate I-HIVES Verified 05/29/24 14:33 sulfamethoxazole (From Allergy Intermediate I-HIVES Verified 05/29/24 14:33 Septra) trimethoprim (From Septra) Allergy Intermediate I-HIVES Verified 05/29/24 14:33 ibuprofen (IBUPROFEN) Allergy Unknown VOMITING Verified 05/29/24 14:33 Assessment and Plan *Assessment and plan (1) Degenerative disc disease, lumbar: Status: Acute Category: Medical Code(s): M51.369 - Other intervertebral disc degeneration, lumbar region without mention of lumbar back pain or lower extremity pain (2) Lumbar radiculopathy: Status: Acute Category: Medical Code(s): M54.16 - Radiculopathy, lumbar region (3) Compression fracture: Status: Acute Category: Medical Plan Patient is experiencing worsening pain in her low back that does radiate down into her bilateral lower extremities. Patient has had epidurals in the past that did provide significant relief with her last lumbar epidural back in November providing more than 50%. I did discuss with patient that I do believe she would benefit from repeat lumbar epidural steroid injection. Risk and benefits were discussed with patient and she would like to proceed forward with this plan of care. Patient is on blood thinners and would have to stop this medication prior to these injections. Patient does have chronic kidney, respiratory and heart issues and is not a candidate for current physical therapy. She does try and stay as active as possible at home with exercising and stretching for longer than 12 weeks in between injections. I will refill her tizanidine and ropinirole and provide a 3-month supply of this medication. Patient will be scheduled for repeat lumbar epidural injection L4-L5 under fluoroscopy. Patient has been instructed to contact the clinic with any concerns before the next appointment. Dr. Brown has reviewed this note and agrees with this plan of care. This note was dictated using voice recognition software and make contain errors or omissions. All injections are used with Lidocaine, Bupivacaine and Depo Medrol. Occasionally urine drug screen is needed to verify patient's compliance with our office pain contract. This is ordered based off specific treatments related to chronic pain with the potential to abuse certain medications.
[2024-06-15 12:20] VITALS: BP 96/69; PULSE 72; RESP 18; O2SAT 94; BMI 26.5
== END 2024-06-15 23:59 | disposition home or self-care (01) ==
PROVIDERS: PCP Family Medicine; Visit Provider Nurse Practitioner Family
DX: M51.16 Intervertebral disc disorders with radiculopathy, lumbar region (principal); Z87.891 Personal history of nicotine dependence; Z73.89 Other problems related to life management difficulty; Z79.899 Other long term (current) drug therapy
CPT/HCPCS: 99212; G0463

== ENCOUNTER 2024-07-07 13:50 | Day surgery (SDC) | payer MEDICARE, MEDICAID, SELFPAY ==
[2024-07-07 14:28] VITALS: BP 106/72; PULSE 75; RESP 16; TEMP 36.3; O2SAT 96; BMI 26.2
--- NOTE | 2024-07-07 14:39 | P.PCN_ITS ---
Procedure Date: 07/07/24 Time: 14:40 Anesthesiologist:: Wilian Griggs CRNA Complications:: None Pre-procedure Diagnosis:: Degenerative disc lumbar spine multilevels. Lumbar radiculopathy. Lumbar spondylosis. Multilevel lumbar facet arthropathy. Post-procedure Diagnosis:: Same. Indications for Procedure:: Patient is a pleasant 68-year-old female who comes our clinic today for lumbar epidural steroid injection. Patient describes low lumbar back pain as constant, dull, aching. She also reports bilateral hip and leg radicular symptoms. She reports responding very well to the same injection in the past. She rates her pain today 5/10. Procedure Details:: Procedure: Lumbar epidural steroid injection under fluoroscopy Informed consent was obtained and the risks and benefits of the procedure were explained to the patient. The patient was taken to the procedure room and noninvasive monitors placed, including noninvasive blood pressure cuff and pulse oximeter. The back was viewed using C-arm Fluoroscopy and prepped using Chlorapr ep as a cleansing solution and the L4-L5 interspace was palpated. Skin and subcutaneous tissues were anesthetized using lidocaine 1.5% and a 25-gauge needle. After this, an 18-gauge Touhy epidural needle was placed into the L4-L5 interspace and advanced using fluoroscopic guidance and loss of resistance to air until the epidural space was encountered. After confirmation of needle placement in the epidural space, with dye, a solution containing normal saline, 3 mL and Depo-Medrol 80 mg were incrementally injected into the lumbar epidural space. The patient tolerated the procedure well with no complications. The patient was observed in the Pain Clinic and then discharged home neurologically intact. Plan and Disposition:: Patient was discharged without incident.
[2024-07-07 14:47] VITALS: BP 105/68; BP 111/77; PULSE 67; PULSE 80; RESP 16; RESP 18; O2SAT 97; O2SAT 98
[2024-07-07 14:54] VITALS: BP 111/77; PULSE 80; O2SAT 97
== END 2024-07-07 14:49 | disposition home or self-care (01) ==
PROVIDERS: PCP Family Medicine; Visit Provider Nurse Anesthetist, Certified Registered
DX: M51.16 Intervertebral disc disorders with radiculopathy, lumbar region (principal); M47.26 Other spondylosis with radiculopathy, lumbar region
CPT/HCPCS: 62323; J1010

== ENCOUNTER 2024-07-22 14:15 | Outpatient (POV) | payer MEDICARE, MEDICAID, SELFPAY ==
--- NOTE | 2024-07-22 14:56 | A.OFFVIS_ITS ---
[facility] Disclaimer: The information contained in this section may have been updated after the patient was seen, as this information can be updated by other users. Medical History History of pulmonary embolism COPD mixed type Thrombosis Hemorrhoids Cataract Hypokalemia Claudication Pleural effusion, left Stopped smoking with greater than 30 pack year history Dyspnea on exertion Edema HHD (hypertensive heart disease) Elevated left ventricular end-diastolic pressure (LVEDP) CAD (coronary artery disease) Numbness Coronary artery calcification seen on CT scan COPD (chronic obstructive pulmonary disease) Tobacco abuse PRAKASH on CPAP SOB (shortness of breath) HTN (hypertension) Vitamin D deficiency (~11/21/17) Hyperlipidemia (~11/21/17) Surgical History History of carpal tunnel release History of cholecystectomy H/O: hysterectomy History of intestinal surgery Family History No significant family history Social History Smoking Status: Former smoker tobacco type: cigarettes packs per day: 1 years smoked: 45 smoking status stop date: 2017 second hand exposure: Yes alcohol intake: never substance use type: marijuana current occupational status: retired Travel in the last 8 weeks: None household members: spouse housing: house current occupational exposures/hazards: No caffeine: No Have you lived/traveled outside [place] in past 30 days?: No Contact w/someone who lives/traveled outside [place] past 30 days?: No Exposure to someone with infectious disease in past 14 days?: No Do you have a fever (greater than 100.4 F or 38 C)?: No Have you tested positive for COVID-19: No Exposed to someone with COVID-19 in past 14 days?: No Do you have a sore throat?: No Do you have a cough?: No Do you have any weakness?: No Do you have any diarrhea?: No Are you experiencing any unusual bleeding?: No Do you have any muscle aches/pain?: No Do you have any abdominal pain?: No Are you experiencing loss of taste or smell?: No PM Subjective & Objective Subjective Subjective:: Patient is a pleasant 68-year-old female who presents today for follow-up of her lumbar epidural steroid injection L4-L5 on 07/07/2024. She does rate her pain today a 7 out of 10. She states this pain is all in her bilateral hips. She states that the epidural did provide 70% relief and feels like it still helping in her legs. She is stating that that overall hip pain is very bothersome and describes it as an aching, throbbing sensation that is worse with certain movements. She states prolonged positioning does seem to aggravate it and she frequently has to change positions due to the worsening pain. Patient is interested in additional injection therapy to provide additional improvement. Patient does also state that where previously she did fracture some of her toes on the left foot that that has been still bothering her and causing spasms. Patient is prescribed tizanidine and Percocet from her primary care and states this does help. She is prescribed compounded cream from our office and states that helps additionally. She is asking in future once we help her overall hip pain whether or not we could possibly do a foot injection. Her Joshua has been reviewed and is appropriate. Review of Systems: General: No recent weight changes, no fever, no sleep disturbances Respiratory: No cough, no shortness of air, no recurring pulmonary infections Cardiovascular/peripheral vascular: No chest pain, no palpitations, no edema, no shortness of breath Gastrointestinal: No new onset incontinence, normal bowel movements reported Genitourinary: No new onset incontinence Musculoskeletal: Bilateral hip pain Psychiatric: [Normal mood/affect] Neurological: [Denies weakness in extremities], [denies balance issues] Pain at rest (0-10 scale): 7 Objective Objective:: Physical Exam: General: Alert and oriented x3, no acute distress, pleasant and cooperative Lungs: Respirations even and unlabored, symmetrical chest expansion Eyes: PERRL Musculoskeletal: Flexion and extension of lumbar [spine] somewhat guarded second jj to pain, [antalgic gait noted] point tenderness along bilateral SIs with positive bilateral Marquis's, Niyah's, Gaenslen's, compression and distraction exam Neurological: Speech clear, no gross sensory deficit Has patient had previous pain injection?: Yes Percent improvement in pain since last injection: 70% Conservative treatment options previously tried: Home exercise plan Length of treatment: Longer than 12-week Meds Home Medications and Allergies Home Medications ?Medication ?Instructions ?Recorded ?Confirmed ?Type fluticasone propionate 50 1 inh inhalation BIDP PRN allergies 09/23/23 06/26/24 History mcg/actuation blister powder for inhalation multivitamin 1 tab PO DAILY 09/23/23 06/26/24 History ondansetron 4 mg disintegrating 4 mg PO Q8HP PRN nausea/vomiting 09/23/23 06/26/24 History tablet alendronate 70 mg tablet 70 mg PO WEEKLY OSTEOARTHRITIS #14 11/01/23 06/26/24 Rx tabs apixaban 5 mg tablet 5 mg PO BID . #60 tabs 11/01/23 06/26/24 Rx bupropion HCl 75 mg tablet 75 mg PO BID Depression #120 tabs 11/01/23 06/26/24 Rx levothyroxine 50 mcg tablet 50 mcg PO DAILY thyroid function 11/01/23 06/26/24 Rx #90 tabs pantoprazole 40 mg tablet,delayed 40 mg PO DAILY STOMACH #90 tabs 11/01/23 06/26/24 Rx release rosuvastatin 20 mg tablet 20 mg PO HS Cholesterol #90 tabs 11/01/23 06/26/24 Rx trazodone 100 mg tablet 100 mg PO HS SLEEP #90 tabs 11/01/23 06/26/24 Rx methenamine hippurate 1 gram tablet 1 g PO BID 11/27/23 06/26/24 History RSVPreF3 antigen-AS01E 0.5 ml IM ONCE #1 ea 12/03/23 06/26/24 Rx adjuvant(PF) 120 mcg/0.5 mL IM suspension, kit (Arexvy (PF)) albuterol sulfate 90 mcg/actuation 2 puff inhalation QIDP PRN sob 12/03/23 06/26/24 Rx aerosol inhaler #8.5 grams tiotropium 2.5 mcg-olodaterol 2.5 2 puff inhalation DAILY Breathing 12/03/23 06/26/24 Rx mcg/actuation mist for inhalation problems #4 grams (Stiolto Respimat) semaglutide (weight loss) 0.25 0.25 mg SQ DIRECTED 03/09/24 06/26/24 History mg/0.5 mL subcutaneous pen injector (Autumny) potassium chloride 20 mEq See Rx Instructions .Route 04/14/24 06/26/24 Rx tablet,extended release(part/cryst) .COMPLEX #90 tabs ergocalciferol (vitamin D2) 1,250 1,250 mcg PO WEEKLY Supplement #5 05/01/24 06/26/24 Rx mcg (50,000 unit) capsule (Drisdol) caps semaglutide (weight loss) 0.5 0.5 mg (0.5 mL) SQ WEEKLY #2 mL 05/01/24 06/26/24 Rx mg/0.5 mL subcutaneous pen injector (Wegovy) carvedilol 3.125 mg tablet (Coreg) 3.125 mg PO BID 90 days #180 tabs 06/12/24 06/26/24 Rx ropinirole 0.5 mg tablet 0.5 mg PO HS #30 tabs 06/15/24 06/26/24 Rx tizanidine 4 mg tablet (Zanaflex) 4 mg PO TID PRN muscle spasms #90 06/15/24 06/26/24 Rx tabs oxycodone-acetaminophen 5 mg-325 1 tab PO Q8H PRN pain #90 tabs 06/26/24 06/26/24 Rx mg tablet (Percocet) gabapentin 100 mg capsule 100 mg PO BID #60 caps 07/02/24 Rx New Prescriptions to Start Prescriptions: Allergies Allergy/AdvReac Type Severity Reaction Status Date / Time codeine Allergy Intermediate I-HIVES Verified 07/07/24 14:28 sulfamethoxazole (From Allergy Intermediate I-HIVES Verified 07/07/24 14:28 ) trimethoprim (From ) Allergy Intermediate I-HIVES Verified 07/07/24 14:28 ibuprofen (IBUPROFEN) Allergy Unknown VOMITING Verified 07/07/24 14:28 Assessment and Plan *Assessment and plan (1) Sacroiliitis: Status: Acute Category: Medical Code(s): M46.1 - Sacroiliitis, not elsewhere classified (2) Bilateral hip pain: Status: Acute Category: Medical Code(s): M25.551 - Pain in right hip; M25.552 - Pain in left hip Plan Patient is experiencing worsening pain along the low back and bilateral hips. They did have limited range of motion of the lumbar spine along with point tenderness along bilateral SI joints and a positive bilateral Marquis's, Niyah's, Gaenslen's, compression and distraction exam. I did discuss with the patient that I do believe they would benefit from bilateral SI injections. Risk and benefits were discussed with the patient and they would like to proceed forward with this option. Patient has tried and failed conservative therapy including continued at home stretching exercise for longer than 12 weeks. Patient has had her last SI injections back in January that did provide 80% relief and lasted more than 3 months. Patient had improved function with overall decreased pain. Patient has had chronic sacroiliitis for longer than 6 months. Patient will be scheduled for bilateral SI injections under fluoroscopy. Patient has been instructed to contact the clinic with any concerns before the next appointment. Dr. Brown has reviewed this note and agrees with this plan of care. This note was dictated using voice recognition software and make contain errors or omissions. All injections are used with Lidocaine or Bupivacaine and Depo Medrol.
[2024-07-22 15:15] VITALS: BP 105/83; PULSE 97; RESP 14; O2SAT 97; BMI 26.5
== END 2024-07-22 23:59 | disposition home or self-care (01) ==
LOC: SC.PAIN 14:18
PROVIDERS: PCP Family Medicine; Visit Provider Nurse Practitioner Family
DX: M46.1 Sacroiliitis, not elsewhere classified (principal); M25.551 Pain in right hip; M25.552 Pain in left hip; Z87.891 Personal history of nicotine dependence; Z79.899 Other long term (current) drug therapy
CPT/HCPCS: 99212; G0463

== ENCOUNTER 2024-08-04 10:09 | Day surgery (SDC) | payer MEDICARE, MEDICAID, SELFPAY ==
[2024-08-04 10:22] VITALS: BP 137/93; PULSE 82; RESP 16; TEMP 36.9; O2SAT 97; BMI 25.7
[2024-08-04 10:36] VITALS: BP 136/91; PULSE 90; RESP 16; O2SAT 98
--- NOTE | 2024-08-04 10:43 | P.PCN_ITS ---
Procedure Date: 08/04/24 Time: 10:20 Anesthesiologist:: Wilian Griggs CRNA Complications:: None Pre-procedure Diagnosis:: Bilateral sacroiliitis Post-procedure Diagnosis:: Same Indications for Procedure:: Patient is a very pleasant 68-year-old female comes our clinic today for bilateral sacroiliac joint injection cortisone and local anesthetic. Patient describes low lumbar back pain off the midline bilaterally. Bilateral posterior hip pain. Difficulty with transitioning from sitting to standing. Difficulty with ambulation due to low lumbar back pain. She rates her pain 7/10. Procedure Details:: Procedure: Bilateral sacroiliac joint injections under fluoroscopy Informed consent was obtained and the risks and benefits of the procedure were explained to the patient.~ The patient was taken to the procedure room and noninvasive monitors were placed including a noninvasive blood pressure cuff and pulse oximeter.~ The patient was placed prone on the procedure table. Both hips were cleansed using Betadine as a cleansing solution. C-arm fluoroscopy was used to view the right sacroiliac joint.~ The skin and subcutaneous tissues were anesthetized using lidocaine 1.5% and a 25-gauge needle.~ After this, a 22-gauge spinal needle was inserted under fluoroscopic guidance into the inferior aspect of the right sacroiliac joint.~ Omnipaque dye was injected and good spread was seen throughout the joint.~ After this, approximately 5 mL of bupivacaine, 0.25% and Depo-Medrol, 40 mg was incrementally injected into the right sacroiliac joint. We then moved to the left sacroiliac joint.~ The skin and subcutaneous tissues were anesthetized using lidocaine 1.5% and a 25-gauge needle.~ After this, a 22- gauge spinal needle was inserted under fluoroscopic guidance into the inferior aspect of the left sacroiliac joint.~ Omnipaque dye was injected and good spread was seen throughout the joint. After this, approximately 5 mL of bupivacaine, 0.25% and Depo-Medrol, 40 mg was incrementally injected into the left sacroiliac joint.~ The patient tolerated the procedure well with no complications. The patient was observed in the Pain Clinic and then was discharged home neurologically intact. Plan and Disposition:: Patient was discharged without incident.
[2024-08-04] MEDS: methylPREDNISolone ACETATE 80MG/ML VIAL 80 MG (11:23)
[2024-08-04] MEDS: BUPIVACAINE 0.25% 10ML INJ 25 MG IJ (11:23)
[2024-08-04] MEDS: LIDOCAINE 1% 5ML PF VIAL 5 ML (11:24)
[2024-08-04 11:32] VITALS: BP 140/98; PULSE 83; RESP 18; O2SAT 96
[2024-08-04 11:33] VITALS: BP 140/98; PULSE 83; RESP 18; O2SAT 96
== END 2024-08-04 10:36 | disposition home or self-care (01) ==
LOC: SC.PAINP 10:10
PROVIDERS: PCP Family Medicine; Visit Provider Nurse Anesthetist, Certified Registered
DX: M46.1 Sacroiliitis, not elsewhere classified (principal)
CPT/HCPCS: 27096; G0260; J1010

== ENCOUNTER 2024-08-19 14:10 | Outpatient (POV) | payer MEDICARE, MEDICAID, SELFPAY ==
--- NOTE | 2024-08-19 14:52 | EXP.PAIN.SOA ---
[facility] Disclaimer: The information contained in this section may have been updated after the patient was seen, as this information can be updated by other users. Medical History History of pulmonary embolism COPD mixed type Thrombosis Hemorrhoids Cataract Hypokalemia Claudication Pleural effusion, left Stopped smoking with greater than 30 pack year history Dyspnea on exertion Edema HHD (hypertensive heart disease) Elevated left ventricular end-diastolic pressure (LVEDP) CAD (coronary artery disease) Numbness Coronary artery calcification seen on CT scan COPD (chronic obstructive pulmonary disease) Tobacco abuse PRAKASH on CPAP SOB (shortness of breath) HTN (hypertension) Vitamin D deficiency (~11/21/17) Hyperlipidemia (~11/21/17) Surgical History History of carpal tunnel release History of cholecystectomy H/O: hysterectomy History of intestinal surgery Family History Other No significant family history Social History Smoking Status: Former smoker tobacco type: cigarettes packs per day: 1 years smoked: 45 smoking status stop date: 2017 second hand exposure: Yes alcohol intake: never substance use type: marijuana current occupational status: other Travel in the last 8 weeks: None household members: spouse housing: house current occupational exposures/hazards: No caffeine: No PM Subjective & Objective Subjective Subjective:: Patient is a pleasant 68-year-old female who presents today for follow-up of bilateral SI injections on 08/04/2024. Patient does rate her pain currently a 5 out of 10. Patient did just have a fall up in the lobby trying to get into a wheelchair where it did move and she fell back hitting her head. Patient states that she is not having any headache and that she can touch on her head along the left side where she fell with very little pain however earlier she did have a sensation along the right side just randomly. Patient has been off her blood thinners for 2 months. Patient does state that she is planning on going down to the ER for evaluation following her appointment. Patient does state that the injection itself provided 90% relief and is still working well and her low back and hip area. She states today her pain is more related to her mid back that radiates out towards her ribs. Patient has had injections in this location with in the past that did provide significant improvement and she does state today that she would like to see about getting rescheduled for these. She states the pain currently is interfering with her ability to perform activities of daily living such as cooking and cleaning. Patient has continued conservative treatment including at home stretching exercise for longer than 12 weeks. Her Joshua has been reviewed and is appropriate. Review of Systems: General: No recent weight changes, no fever, no sleep disturbances Respiratory: No cough, no shortness of air, no recurring pulmonary infections Cardiovascular/peripheral vascular: No chest pain, no palpitations, no edema, no shortness of breath Gastrointestinal: No new onset incontinence, normal bowel movements reported Genitourinary: No new onset incontinence Musculoskeletal: Mid back pain, rib pain Psychiatric: [Normal mood/affect] Neurological: [Denies weakness in extremities], [denies balance issues] Pain at rest (0-10 scale): 5 Objective Objective:: Physical Exam: General: Alert and oriented x3, no acute distress, pleasant and cooperative Lungs: Respirations even and unlabored, symmetrical chest expansion Eyes: PERRL Musculoskeletal: Flexion and extension of thoracic [spine] somewhat guarded secondary to pain, [antalgic gait noted] point tenderness along lower thoracic spine Neurological: Speech clear, no gross sensory deficit Has patient had previous pain injection?: Yes Percent improvement in pain since last injection: 90% Conservative treatment options previously tried: Home exercise plan Length of treatment: Longer than 12 weeks Meds Home Medications and Allergies Home Medications ?Medication ?Instructions ?Recorded ?Confirmed ?Type fluticasone propionate 50 1 inh inhalation BIDP PRN allergies 09/23/23 08/04/24 History mcg/actuation blister powder for inhalation multivitamin 1 tab PO DAILY 09/23/23 08/04/24 History ondansetron 4 mg disintegrating 4 mg PO Q8HP PRN nausea/vomiting 09/23/23 08/04/24 History tablet alendronate 70 mg tablet 70 mg PO WEEKLY OSTEOARTHRITIS #14 11/01/23 08/04/24 Rx tabs bupropion HCl 75 mg tablet 75 mg PO BID Depression #120 tabs 11/01/23 08/04/24 Rx levothyroxine 50 mcg tablet 50 mcg PO DAILY thyroid function 11/01/23 08/04/24 Rx #90 tabs pantoprazole 40 mg tablet,delayed 40 mg PO DAILY STOMACH #90 tabs 11/01/23 08/04/24 Rx release rosuvastatin 20 mg tablet 20 mg PO HS Cholesterol #90 tabs 11/01/23 08/04/24 Rx trazodone 100 mg tablet 100 mg PO HS SLEEP #90 tabs 11/01/23 08/04/24 Rx methenamine hippurate 1 gram tablet 1 g PO BID 11/27/23 08/04/24 History RSVPreF3 antigen-AS01E 0.5 ml IM ONCE #1 ea 12/03/23 08/04/24 Rx adjuvant(PF) 120 mcg/0.5 mL IM suspension, kit (Arexvy (PF)) albuterol sulfate 90 mcg/actuation 2 puff inhalation QIDP PRN sob 12/03/23 08/04/24 Rx aerosol inhaler #8.5 grams tiotropium 2.5 mcg-olodaterol 2.5 2 puff inhalation DAILY Breathing 12/03/23 08/04/24 Rx mcg/actuation mist for inhalation problems #4 grams (Stiolto Respimat) semaglutide (weight loss) 0.25 0.25 mg SQ DIRECTED 03/09/24 08/04/24 History mg/0.5 mL subcutaneous pen injector (Wegovy) potassium chloride 20 mEq See Rx Instructions .Route 04/14/24 08/04/24 Rx tablet,extended release(part/cryst) .COMPLEX #90 tabs carvedilol 3.125 mg tablet (Coreg) 3.125 mg PO BID 90 days #180 tabs 06/12/24 08/04/24 Rx ropinirole 0.5 mg tablet 0.5 mg PO HS #30 tabs 06/15/24 08/04/24 Rx tizanidine 4 mg tablet (Zanaflex) 4 mg PO TID PRN muscle spasms #90 06/15/24 08/04/24 Rx tabs gabapentin 100 mg capsule 100 mg PO BID #60 caps 07/27/24 08/04/24 Rx oxycodone-acetaminophen 5 mg-325 1 tab PO Q8H PRN pain #90 tabs 07/27/24 08/04/24 Rx mg tablet (Percocet) silver sulfadiazine 1 % topical 1 applic topical BID #25 grams 07/27/24 08/04/24 Rx cream (Silvadene) ergocalciferol (vitamin D2) 1,250 1,250 mcg PO WEEKLY Supplement #5 08/03/24 08/04/24 Rx mcg (50,000 unit) capsule caps semaglutide (weight loss) 0.5 0.5 mg (0.5 mL) SQ WEEKLY #2 mL 08/03/24 08/04/24 Rx mg/0.5 mL subcutaneous pen injector (Wegovy) New Prescriptions to Start Prescriptions: Allergies Allergy/AdvReac Type Severity Reaction Status Date / Time codeine Allergy Intermediate I-HIVES Verified 08/04/24 10:23 sulfamethoxazole (From Allergy Intermediate I-HIVES Verified 08/04/24 10:23 ) trimethoprim (From ) Allergy Intermediate I-HIVES Verified 08/04/24 10:23 ibuprofen (IBUPROFEN) Allergy Unknown VOMITING Verified 08/04/24 10:23 Assessment and Plan *Assessment and plan (1) Thoracic radiculopathy: Status: Acute Category: Medical Code(s): M54.14 - Radiculopathy, thoracic region (2) Degenerative disc disease, thoracic: Status: Acute Category: Medical Code(s): M51.34 - Other intervertebral disc degeneration, thoracic region Plan Patient is experiencing worsening pain in her thoracic back with numbness and radiating pain into her ribs. Patient did have limited range of motion of her thoracic spine with point tenderness along her lower thoracic spine. I did discuss with patient that I do believe they would benefit from a thoracic epidural steroid injection. Risk and benefits were discussed with patient and the patient would like to proceed forward with this plan of care. Patient is not currently on any blood thinner. Patient has tried and failed conservative therapy including continued at home stretching exercise for longer than 12 weeks between injections. Patient did previously have a thoracic epidural back in March that provided 85% relief and lasted longer than 3 months. We will schedule the patient for an TESI T10-T11 under fluoroscopy. Patient has been instructed to contact the clinic with any concerns before the next appointment. Dr. Brown has reviewed this note and agrees with this plan of care. This note was dictated using voice recognition software and make contain errors or omissions. All injections are used with Lidocaine, Bupivacaine and Depo Medrol. Occasionally urine drug screen is needed to verify patient's compliance with our office pain contract. This is ordered based off specific treatments related to chronic pain with the potential to abuse certain medications.
[2024-08-19 15:11] VITALS: BP 114/79; PULSE 72; RESP 16; O2SAT 91; BMI 25.7
== END 2024-08-19 23:59 | disposition home or self-care (01) ==
PROVIDERS: PCP Family Medicine; Visit Provider Nurse Practitioner Family
DX: M51.14 Intervertebral disc disorders with radiculopathy, thoracic region (principal); Z87.891 Personal history of nicotine dependence; Z73.89 Other problems related to life management difficulty; Z79.899 Other long term (current) drug therapy
CPT/HCPCS: 99212; G0463

== ENCOUNTER 2024-08-19 14:53 | Observation (INO) | payer MEDICARE, MEDICAID, SELFPAY ==
[2024-08-19] VITALS (11 sets, daily range): BP systolic 117–141; BP diastolic 69–83; PULSE 58–90; RESP 14–20; TEMP 36.7–36.9; O2SAT 92–97; BMI 25.7; BMI 26.0
--- NOTE | 2024-08-19 15:15 | CT_ITS ---
FINAL REPORT TECHNIQUE: Noncontrast exam This study was performed with techniques to keep radiation doses as low as reasonably achievable, (ALARA). Individualized dose reduction techniques using automated exposure control or adjustment of mA and/or kV according to the patient''s size were employed. CLINICAL HISTORY: traumatic fall COMPARISON: 08/08/2020 FINDINGS: No abnormal density is seen. Ventricles are normal. There is no hemorrhage. No mass effect is seen. Bone windows show no evidence of fracture. IMPRESSION: No acute findings Reviewed, Interpreted and Dictated by Niall Carey MD Transcribed by Rafaela Cota Authenticated and [facility]
--- NOTE | 2024-08-19 15:16 | CT_ITS ---
FINAL REPORT TECHNIQUE: Thin section axial CT with sagittal reconstruction without contrast This study was performed with techniques to keep radiation doses as low as reasonably achievable, (ALARA). Individualized dose reduction techniques using automated exposure control or adjustment of mA and/or kV according to the patient''s size were employed. CLINICAL HISTORY: traumatic fall COMPARISON: 08/08/2020 FINDINGS: No fracture is seen. Alignment is normal. There are mild multilevel degenerative changes, most pronounced at C5-6. No obvious bony spinal canal stenosis is present. No gross disk abnormalities are seen. IMPRESSION: No fracture or malalignment Reviewed, Interpreted and Dictated by Niall Caery MD Transcribed by Rafaela Cota Authenticated and [facility]
--- NOTE | 2024-08-19 15:18 | PC.NURSE ---
PT TO CT
--- NOTE | 2024-08-19 15:20 | PC.NURSE ---
1510 - David still. No acutre distress. Refer to head assessment. Family at bedside. Siderails up X2, call maguire in reach.
--- NOTE | 2024-08-19 15:21 | PC.NURSE ---
1515 - Consulted with Dr. Wyatt for CT scans, ordered, Patient transported to CT scan.
--- NOTE | 2024-08-19 15:27 | PC.NURSE ---
PT RETURNED FROM CT
--- NOTE | 2024-08-19 15:57 | ED_ITS ---
<Statement entered by Gui Wyatt MD - 08/19/24 21:38> I was consulted by the DIGNA, and we discussed the complexity of the problems being addressed. I approved the treatment and management plan for this patient's care in the emergency department, thus performing a substantive portion of the medical decision making. Gui Wyatt MD Discharge Plan Disposition Patient Disposition: Admitted Condition: Good Clinical Impressions Clinical Impression: Fall, Hypokalemia, Hypomagnesemia, Hypocalcemia Discharge ED Provider: Gui Wyatt General Adult HPI <GABE Jaimes - Last Filed: 08/19/24 18:34> General Chief complaint: Head Injury Stated complaint: AO Fall hit head Time Seen by Provider: 08/19/24 15:06 Mode of Arrival: Wheelchair Source of Information: Patient Limitations: No Limitations Description of Symptoms (Recalled from ER Triage Doc. by RN): PT REPORTS FALL AND STRIKING HER HEAD ON FLOOR WHILE TRYING TO GET IN TO A WHEELCHAIR HERE AT [facility] FOR PAIN MANAGEMENT APPT. PT WENT TO APPT AND THEN CAME TO BE EVALUATED IN ER. PAIN TO LEFT SIDE OF HEAD. NO OBVIOUS LACERATION, HEMATOMA OR SWELLING. PT ALERT AND ORIENTED. NOT ON BLOOD THINNERS, NO NECK PAIN OR TENDERNESS History of Present Illness HPI narrative: 68-year-old female presents to the emergency department for what sounds like mechanical fall, patient was on the way to her doctor's appointment for pain management , for chronic lower lumbar spine pain, when she fell, striking her head on the floor on the left temporoparietal region, she had no LOC, she is not on any anticoagulants. He denies any neck pain, has back pain at her baseline, was able to be seen by her pain management physician today. Patient denies any presyncopal or syncopal event, however is unsure, has history of dizziness/frequent falls, is not have any dizziness right now no lightheadedness, does complain of a mild headache, denies any fever chills chest pain shortness of breath nausea vomiting, no abdominal pain, no no diarrhea, does have ostomy and has had normal output, normal urinary function, no urinary type symptomatology. The past medical history consistent with COPD, history of anal cancer, chronic lumbar spine pain with degenerative disc disease, everyday smoker, CAD, pretension, vitamin D deficiency, hyperlipidemia. Denies other substance use, distress vitals unremarkable. Onset (ago): hour(s) Related Data Home Medications ?Medication ?Instructions ?Recorded ?Confirmed fluticasone propionate 50 1 inh inhalation BIDP PRN allergies 09/23/23 08/19/24 mcg/actuation blister powder for inhalation multivitamin 1 tab PO DAILY 09/23/23 08/19/24 ondansetron 4 mg disintegrating 4 mg PO Q8HP PRN nausea/vomiting 09/23/23 08/19/24 tablet methenamine hippurate 1 gram tablet 1 g PO BID 11/27/23 08/19/24 semaglutide (weight loss) 0.25 0.25 mg SQ DIRECTED 03/09/24 08/19/24 mg/0.5 mL subcutaneous pen injector (Rianna) Previous Rx's ?Medication ?Instructions ?Recorded alendronate 70 mg tablet 70 mg PO WEEKLY OSTEOARTHRITIS #14 11/01/23 tabs bupropion HCl 75 mg tablet 75 mg PO BID Depression #120 tabs 11/01/23 levothyroxine 50 mcg tablet 50 mcg PO DAILY thyroid function 11/01/23 #90 tabs pantoprazole 40 mg tablet,delayed 40 mg PO DAILY STOMACH #90 tabs 11/01/23 release rosuvastatin 20 mg tablet 20 mg PO HS Cholesterol #90 tabs 11/01/23 trazodone 100 mg tablet 100 mg PO HS SLEEP #90 tabs 11/01/23 RSVPreF3 antigen-AS01E 0.5 ml IM ONCE #1 ea 12/03/23 adjuvant(PF) 120 mcg/0.5 mL IM suspension, kit (Arexvy (PF)) albuterol sulfate 90 mcg/actuation 2 puff inhalation QIDP PRN sob 12/03/23 aerosol inhaler #8.5 grams tiotropium 2.5 mcg-olodaterol 2.5 2 puff inhalation DAILY Breathing 12/03/23 mcg/actuation mist for inhalation problems #4 grams (Stiolto Respimat) potassium chloride 20 mEq See Rx Instructions .Route 04/14/24 tablet,extended release(part/cryst) .COMPLEX #90 tabs carvedilol 3.125 mg tablet (Coreg) 3.125 mg PO BID 90 days #180 tabs 06/12/24 ropinirole 0.5 mg tablet 0.5 mg PO HS #30 tabs 06/15/24 tizanidine 4 mg tablet (Zanaflex) 4 mg PO TID PRN muscle spasms #90 06/15/24 tabs gabapentin 100 mg capsule 100 mg PO BID #60 caps 07/27/24 oxycodone-acetaminophen 5 mg-325 1 tab PO Q8H PRN pain #90 tabs 07/27/24 mg tablet (Percocet) silver sulfadiazine 1 % topical 1 applic topical BID #25 grams 07/27/24 cream (Silvadene) ergocalciferol (vitamin D2) 1,250 1,250 mcg PO WEEKLY Supplement #5 08/03/24 mcg (50,000 unit) capsule caps semaglutide (weight loss) 0.5 0.5 mg (0.5 mL) SQ WEEKLY #2 mL 08/03/24 mg/0.5 mL subcutaneous pen injector (Wegovy) Allergies Allergy/AdvReac Type Severity Reaction Status Date / Time codeine Allergy Intermediate I-HIVES Verified 08/04/24 10:23 sulfamethoxazole (From Allergy Intermediate I-HIVES Verified 08/04/24 10:23 Septra) trimethoprim (From Septra) Allergy Intermediate I-HIVES Verified 08/04/24 10:23 ibuprofen (IBUPROFEN) Allergy Unknown VOMITING Verified 08/04/24 10:23 [facility] <GABE Jaimes - Last Filed: 08/19/24 18:34> [facility] Disclaimer: The information contained in this section may have been updated after the patient was seen, as this information can be updated by other users. Medical History History of pulmonary embolism COPD mixed type Thrombosis Hemorrhoids Cataract Hypokalemia Claudication Pleural effusion, left Stopped smoking with greater than 30 pack year history Dyspnea on exertion Edema HHD (hypertensive heart disease) Elevated left ventricular end-diastolic pressure (LVEDP) CAD (coronary artery disease) Numbness Coronary artery calcification seen on CT scan COPD (chronic obstructive pulmonary disease) Tobacco abuse PRAKASH on CPAP SOB (shortness of breath) HTN (hypertension) Vitamin D deficiency (~11/21/17) Hyperlipidemia (~11/21/17) Surgical History History of carpal tunnel release History of cholecystectomy H/O: hysterectomy History of intestinal surgery Family History Other No significant family history Social History Smoking Status: Former smoker tobacco type: cigarettes packs per day: 1 years smoked: 45 smoking status stop date: 2017 second hand exposure: Yes alcohol intake: never substance use type: marijuana current occupational status: other Travel in the last 8 weeks: None household members: spouse housing: house current occupational exposures/hazards: No caffeine: No Have you lived/traveled outside [place] in past 30 days?: No Contact w/someone who lives/traveled outside US past 30 days?: No Exposure to someone with infectious disease in past 14 days?: No Do you have a fever (greater than 100.4 F or 38 C)?: No Have you tested positive for COVID-19: No Exposed to someone with COVID-19 in past 14 days?: No Do you have a sore throat?: No Do you have a cough?: No Do you have any weakness?: No Do you have any diarrhea?: No Are you experiencing any unusual bleeding?: No Do you have any muscle aches/pain?: No Do you have any abdominal pain?: No Are you experiencing loss of taste or smell?: No Other Medical History Have you received the Flu Vaccine for this season: Yes Have you received the Pneumonia Vaccine: Yes <GABE Jaimes - Last Filed: 08/19/24 18:34> ROS Obtained: Yes All systems reviewed & no additional complaints except as documented Physical Exam <GABE Jaimes - Last Filed: 08/19/24 18:34> General General appearance: alert and in no apparent distress Head Head exam: atraumatic and normocephalic Eye Eye exam: Present PERRL and EOMI ENT ENT exam: Present mucous membranes moist Neck Neck exam: Present normal inspection Chest Chest inspection: Present normal inspection and symmetric chest wall rise Respiratory Respiratory exam: Present normal lung sounds bilaterally; Absent respiratory distress Cardiovascular Cardiovascular exam: Present regular rate and normal rhythm Abdominal Exam Abdominal exam: Present soft; Absent tenderness Extremities Exam Extremities exam: Present normal inspection Neurological Exam Neurological exam: Present alert, oriented X3 and other (Moves extremities to command, GCS of 15, alert oriented, dysarthria, 5 out of 5 strength in bilateral lower and upper extremities, no sensation deficit, there is no paraspinal tenderness palpation to the cervical spine, no spinal tenderness to palpation of the cervical spine) Psychiatric Psychiatric exam: Present normal affect Skin Skin exam: Present warm and dry Medical Decision Making <GABE Jaimes - Last Filed: 08/19/24 18:34> Medical Records Medical records reviewed: Yes I reviewed the patient's medical records. Screening: Per USPSTF and CDC recommendations, given the prevalence of disease in our region, it is our hospital?s policy to screen for HIV and viral Hepatitis for all patients aged 18 and over and those with ongoing risk factors. Joshua Inquiry Pt receiving controlled substance: No Joshua was queried for this patient: No Vital Signs: 08/19/24 14:54 08/19/24 15:33 08/19/24 16:00 Temperature 98.1 F Temperature Source Oral Pulse Rate 65 64 Pulse Rate [Radial] 70 Pulse Rate [Right Radial] Respiratory Rate 18 Blood Pressure 126/83 117/72 Blood Pressure [Right Arm] 127/80 Blood Pressure Mean Blood Pressure Mean [Right Arm] 95 Blood Pressure Source Blood Pressure Source [Right Arm] Automatic Cuff Blood Pressure Position Blood Pressure Position [Right Arm] Sitting 02 Sat by Pulse Oximetry 95 96 92 L Oxygen Delivery Method Room Air 08/19/24 16:30 08/19/24 17:00 08/19/24 17:23 Temperature 98.4 F Temperature Source Tympanic Pulse Rate 60 58 L Pulse Rate [Radial] 60 Pulse Rate [Right Radial] 60 Respiratory Rate 14 Blood Pressure 135/82 132/78 Blood Pressure [Right Arm] 132/78 Blood Pressure Mean 102 102 Blood Pressure Mean [Right Arm] 96 Blood Pressure Source Blood Pressure Source [Right Arm] Automatic Cuff Blood Pressure Position Blood Pressure Position [Right Arm] Sitting 02 Sat by Pulse Oximetry 93 L 97 96 Oxygen Delivery Method Room Air 08/19/24 17:30 08/19/24 17:42 Temperature 98.0 F Temperature Source Oral Pulse Rate 59 L 62 Pulse Rate [Radial] Pulse Rate [Right Radial] Respiratory Rate 16 Blood Pressure 125/75 125/75 Blood Pressure [Right Arm] Blood Pressure Mean Blood Pressure Mean [Right Arm] Blood Pressure Source Automatic Cuff Blood Pressure Source [Right Arm] Blood Pressure Position Sitting Blood Pressure Position [Right Arm] 02 Sat by Pulse Oximetry 96 Oxygen Delivery Method Room Air Lab Data Lab Results 08/19/24 15:33: WBC 7.4, RBC 3.53 L, Hgb 9.9 L, Hct 31.1 L, MCV 88.1, MCH 28.0, MCHC 31.8, RDW 16.8, Plt Count 179, MPV 11.2 H, Neut % (Auto) 77.1, Lymph % (Auto) 12.6, [place] % (Auto) 8.9, Eos % (Auto) 0.8, Baso % (Auto) 0.3, Neut # (Auto) 5.7, Lymph # (Auto) 0.9, [place] # (Auto) 0.7, Eos # (Auto) 0.1, Baso # (Auto) 0.0, Sodium 137, Potassium 2.7 L*, Chloride 104, Carbon Dioxide 26, Anion Gap 9.7, BUN 13, Creatinine 0.80, Estimated Creat Clear 57, Estimated GFR 72, Est GFR ( Amer) 87, Glucose 106 H, Calcium 7.3 L, Magnesium 0.8 L, Total Bilirubin 0.2, AST 21, ALT 17, Alkaline Phosphatase 73, Troponin I < 0.01, N T-Pro-B Natriuret Pep 503 H, Total Protein 6.3, Albumin 3.1 L, Globulin 3.2, A lbumin/Globulin Ratio 1.0 L 08/19/24 15:33 08/19/24 15:33 Orders (Tests/Meds): ED MEDICATIONS Generic Name Dose Route Start Last Admin Trade Name Freq PRN Reason Stop Dose Admin Acetaminophen 650 mg 08/19/24 17:17 Acetaminophen 325mg Tab PO 09/18/24 17:16 Q4HP PRN Fever or Mild Pain (1-3) Enoxaparin Sodium 40 mg 08/20/24 09:00 Enoxaparin 40mg/0.4ml Syringe SUBCUT 09/19/24 08:59 DAILY JOMAR Sodium Chloride 1,000 mls @ 75 mls/hr 08/19/24 17:30 Sod Chlor 0.9% 1000ml Bag IV 09/18/24 17:29 .[id number] JOMAR Ondansetron HCl 4 mg 08/19/24 17:17 Ondansetron 4mg/2ml Vial IV 09/18/24 17:16 Q8HP PRN Nausea Discontinued Medications Generic Name Dose Route Start Last Admin Trade Name Freq PRN Reason Stop Dose Admin Magnesium Sulfate 2 gm in 50 mls @ 50 mls/hr 08/19/24 16:12 08/19/24 16:24 Magnesium Sulfate 2gm/50ml Premix IV 08/19/24 17:11 50 mls/hr ONCE ONE Administration Calcium Gluconate/Sodium Chloride 1 gm in 50 mls @ 50 mls/hr 08/19/24 16:27 Calcium Gluconate 1,000mg/50ml Nacl Premix IV 08/19/24 17:26 ONCE ONE Potassium Chloride 60 meq 08/19/24 16:11 08/19/24 16:25 Potassium Chloride 20meq Tab PO 08/19/24 16:12 60 meq ONCE ONE Administration ORDERS Category Date Time Status CT cervical spine wo con Stat Cat Scan 08/19/24 15:[address] head/brain wo con Stat Cat Scan 08/19/24 15:15 Completed POCUS Point of Care (ER Only) Stat Exams 08/19/24 16:37 Completed Complete Blood Count Auto Diff AMLAB Lab 08/20/24 06:00 Ordered Complete Blood Count Auto Diff AMLAB Lab 08/21/24 06:00 Ordered Complete Blood Count Auto Diff AMLAB Lab 08/22/24 06:00 Ordered Complete Blood Count Auto Diff AMLAB Lab 08/23/24 06:00 Ordered Complete Blood Count Auto Diff AMLAB Lab 08/24/24 06:00 Ordered Complete Blood Count Auto Diff Stat Lab 08/19/24 15:33 Completed Comprehensive Metabolic Panel AMLAB Lab 08/20/24 06:00 Ordered Comprehensive Metabolic Panel AMLAB Lab 08/21/24 06:00 Ordered Comprehensive Metabolic Panel AMLAB Lab 08/22/24 06:00 Ordered Comprehensive Metabolic Panel AMLAB Lab 08/23/24 06:00 Ordered Comprehensive Metabolic Panel AMLAB Lab 08/24/24 06:00 Ordered Comprehensive Metabolic Panel Stat Lab 08/19/24 15:33 Completed Magnesium AMLAB Lab 08/20/24 06:00 Ordered Magnesium AMLAB Lab 08/21/24 06:00 Ordered Magnesium AMLAB Lab 08/22/24 06:00 Ordered Magnesium AMLAB Lab 08/23/24 06:00 Ordered Magnesium AMLAB Lab 08/24/24 06:00 Ordered Magnesium Stat Lab 08/19/24 15:33 Completed NT Pro Brain Natriuretic Pep. Stat Lab 08/19/24 15:33 Completed Troponin I Q3H Lab 08/19/24 19:00 Ordered Troponin I Q3H Lab 08/19/24 22:00 Ordered Troponin I Stat Lab 08/19/24 15:33 Completed Medical Decision Narrative: 68-year-old female presents to the emergency department with a fall and head injury, differential diagnose include but not limited to, closed head injury, postconcussive syndrome, acute SDH, traumatic SAH, cervicalgia, C-spine fracture, cardiac arrhythmia, electrolyte disturbance, vagal syncope, cardiogenic syncope, situational syncope. Discussed patient case with attending physician Obtain basic laboratory studies, magnesium level, troponin, proBNP, EKG, CT head without contrast and CT cervical spine without contrast further evaluation as characterization. CBC is notable for erythrocyte opinion at 3.5, hemoglobin hematocrit are decreased at 9.9/31.1 respectively, this does seem chronic. Repeat the patient's CMP, hypokalemia is noted at 2.7, BUN and creatinine within normal limits, Mild hypocalcemia at 7.3, magnesium level was decreased at 0.8. Replace electrolytes with 2 g IV magnesium, and obtain 60 mill equivalent p.o. potassium for hypokalemia and hypomagnesia. The patient CT cervical spine without contrast along the corresponding radiologic report no acute fracture or malalignment. Reviewed the patient's CT head without contrast on the corresponding radiologic report there are no acute findings. Will also replaced patient's calcium with 1 g of calcium gluconate IV. Patient's initial troponin within normal limits. Also obtain POCUS bedside ultrasound of the patient's heart, per attending physician, due to low voltage as seen on the patient's EKG and previous history of pericardial effusion. proBNP is minimally elevated at 503. I discussed the patient's case with the hospitalist at approximately 5:15 PM, he is agree with current treatment plan/admission plan for electrolyte disturbance and presyncopal episode, fall. I discussed need for admission with the patient and family the bedside patient famine agreement current admission plan/treatment plan. <Gui Wyatt MD - Last Filed: 08/19/24 16:15> Vital Signs: 08/19/24 14:54 08/19/24 15:33 08/19/24 16:00 Temperature 98.1 F Temperature Source Oral Pulse Rate 65 64 Pulse Rate [Radial] 70 Pulse Rate [Right Radial] Respiratory Rate 18 Blood Pressure 126/83 117/72 Blood Pressure [Right Arm] 127/80 Blood Pressure Mean Blood Pressure Mean [Right Arm] 95 Blood Pressure Source Blood Pressure Source [Right Arm] Automatic Cuff Blood Pressure Position Blood Pressure Position [Right Arm] Sitting 02 Sat by Pulse Oximetry 95 96 92 L Oxygen Delivery Method Room Air 08/19/24 16:30 08/19/24 17:00 08/19/24 17:23 Temperature 98.4 F Temperature Source Tympanic Pulse Rate 60 58 L Pulse Rate [Radial] 60 Pulse Rate [Right Radial] 60 Respiratory Rate 14 Blood Pressure 135/82 132/78 Blood Pressure [Right Arm] 132/78 Blood Pressure Mean 102 102 Blood Pressure Mean [Right Arm] 96 Blood Pressure Source Blood Pressure Source [Right Arm] Automatic Cuff Blood Pressure Position Blood Pressure Position [Right Arm] Sitting 02 Sat by Pulse Oximetry 93 L 97 96 Oxygen Delivery Method Room Air 08/19/24 17:30 08/19/24 17:42 Temperature 98.0 F Temperature Source Oral Pulse Rate 59 L 62 Pulse Rate [Radial] Pulse Rate [Right Radial] Respiratory Rate 16 Blood Pressure 125/75 125/75 Blood Pressure [Right Arm] Blood Pressure Mean Blood Pressure Mean [Right Arm] Blood Pressure Source Automatic Cuff Blood Pressure Source [Right Arm] Blood Pressure Position Sitting Blood Pressure Position [Right Arm] 02 Sat by Pulse Oximetry 96 Oxygen Delivery Method Room Air Lab Data Lab Results 08/19/24 15:33: WBC 7.4, RBC 3.53 L, Hgb 9.9 L, Hct 31.1 L, MCV 88.1, MCH 28.0, MCHC 31.8, RDW 16.8, Plt Count 179, MPV 11.2 H, Neut % (Auto) 77.1, Lymph % (Auto) 12.6, [place] % (Auto) 8.9, Eos % (Auto) 0.8, Baso % (Auto) 0.3, Neut # (Auto) 5.7, Lymph # (Auto) 0.9, [place] # (Auto) 0.7, Eos # (Auto) 0.1, Baso # (Auto) 0.0, Sodium 137, Potassium 2.7 L*, Chloride 104, Carbon Dioxide 26, Anion Gap 9.7, BUN 13, Creatinine 0.80, Estimated Creat Clear 57, Estimated GFR 72, Est GFR ( Amer) 87, Glucose 106 H, Calcium 7.3 L, Magnesium 0.8 L, Total Bilirubin 0.2, AST 21, ALT 17, Alkaline Phosphatase 73, Troponin I < 0.01, N T-Pro-B Natriuret Pep 503 H, Total Protein 6.3, Albumin 3.1 L, Globulin 3.2, A lbumin/Globulin Ratio 1.0 L Orders (Tests/Meds): ED MEDICATIONS Generic Name Dose Route Start Last Admin Trade Name Freq PRN Reason Stop Dose Admin Acetaminophen 650 mg 08/19/24 17:17 Acetaminophen 325mg Tab PO 09/18/24 17:16 Q4HP PRN Fever or Mild Pain (1-3) Enoxaparin Sodium 40 mg 08/20/24 09:00 Enoxaparin 40mg/0.4ml Syringe SUBCUT 09/19/24 08:59 DAILY JOMAR Sodium Chloride 1,000 mls @ 75 mls/hr 08/19/24 17:30 Sod Chlor 0.9% 1000ml Bag IV 09/18/24 17:29 .[id number] JOMAR Ondansetron HCl 4 mg 08/19/24 17:17 Ondansetron 4mg/2ml Vial IV 09/18/24 17:16 Q8HP PRN Nausea Discontinued Medications Generic Name Dose Route Start Last Admin Trade Name Freq PRN Reason Stop Dose Admin Magnesium Sulfate 2 gm in 50 mls @ 50 mls/hr 08/19/24 16:12 08/19/24 16:24 Magnesium Sulfate 2gm/50ml Premix IV 08/19/24 17:11 50 mls/hr ONCE ONE Administration Calcium Gluconate/Sodium Chloride 1 gm in 50 mls @ 50 mls/hr 08/19/24 16:27 Calcium Gluconate 1,000mg/50ml Nacl Premix IV 08/19/24 17:26 ONCE ONE Potassium Chloride 60 meq 08/19/24 16:11 08/19/24 16:25 Potassium Chloride 20meq Tab PO 08/19/24 16:12 60 meq ONCE ONE Administration ORDERS Category Date Time Status CT cervical spine wo con Stat Cat Scan 08/19/24 15:[address] head/brain wo con Stat Cat Scan 08/19/24 15:15 Completed POCUS Point of Care (ER Only) Stat Exams 08/19/24 16:37 Completed Complete Blood Count Auto Diff AMLAB Lab 08/20/24 06:00 Ordered Complete Blood Count Auto Diff AMLAB Lab 08/21/24 06:00 Ordered Complete Blood Count Auto Diff AMLAB Lab 08/22/24 06:00 Ordered Complete Blood Count Auto Diff AMLAB Lab 08/23/24 06:00 Ordered Complete Blood Count Auto Diff AMLAB Lab 08/24/24 06:00 Ordered Complete Blood Count Auto Diff Stat Lab 08/19/24 15:33 Completed Comprehensive Metabolic Panel AMLAB Lab 08/20/24 06:00 Ordered Comprehensive Metabolic Panel AMLAB Lab 08/21/24 06:00 Ordered Comprehensive Metabolic Panel AMLAB Lab 08/22/24 06:00 Ordered Comprehensive Metabolic Panel AMLAB Lab 08/23/24 06:00 Ordered Comprehensive Metabolic Panel AMLAB Lab 08/24/24 06:00 Ordered Comprehensive Metabolic Panel Stat Lab 08/19/24 15:33 Completed Magnesium AMLAB Lab 08/20/24 06:00 Ordered Magnesium AMLAB Lab 08/21/24 06:00 Ordered Magnesium AMLAB Lab 08/22/24 06:00 Ordered Magnesium AMLAB Lab 08/23/24 06:00 Ordered Magnesium AMLAB Lab 08/24/24 06:00 Ordered Magnesium Stat Lab 08/19/24 15:33 Completed NT Pro Brain Natriuretic Pep. Stat Lab 08/19/24 15:33 Completed Troponin I Q3H Lab 08/19/24 19:00 Ordered Troponin I Q3H Lab 08/19/24 22:00 Ordered Troponin I Stat Lab 08/19/24 15:33 Completed ECG Data Tracing #1: Independently inter by me rate 63, rhythm is regular, axis is normal, no ST elevation in anatomical contiguous leads, QTc 464 Critical Care <GABE Jaimes - Last Filed: 08/19/24 18:34> Critical Care Time Critical Care Time: No
--- NOTE | 2024-08-19 15:58 | PC.NURSE ---
1550 - R/T from CT no acute distress. Discussed imaging with CORBIN rAiza. Orders give for bloodwork, bloodwork already in lab. Lab notified of orders.
[2024-08-19 15:59] LABS: Basophils % 0.3 % (0.1-2.0); Eosinophils # 0.1 K/mm3 (0.0-0.4); Eosinophils % 0.8 % (0.1-12.0); Hematocrit 31.1 % (37.0-47.0); Hemoglobin 9.9 g/dL (12.2-16.2); Lymphocytes # 0.9 K/mm3 (0.7-4.5); Lymphocytes % 12.6 % (10-50); Mean Corpuscular HGB Conc 31.8 g/dL (31.8-35.4); Mean Corpuscular Volume 88.1 fl (81-99); Mean Platelet Volume 11.2 fl (7.4-10.4); Monocytes # 0.7 K/mm3 (0.1-1.0); Monocytes % 8.9 % (1.7-9.3); Neutrophils # 5.7 K/mm3 (1.8-7.8); Neutrophils % 77.1 % (37.0-80.0); Platelet Count 179 K/mm3 (142-424); Red Blood Count 3.53 M/mm3 (4.20-5.40); Red Cell Distribution Width 16.8 % (11.5-17.5); White Blood Count 7.4 K/mm3 (4.8-10.8)
--- NOTE | 2024-08-19 16:01 | PC.NURSE ---
rounded on the pt. the pt voices that she does not need anything at this time. call light is within reach of the pt.
[2024-08-19 16:03] LABS: Albumin Level 3.1 g/dl (3.5-5.0); Chloride 104 mmol/L (98-107); Sodium 137 mmol/L (136-145)
--- NOTE | 2024-08-19 16:03 | ECG_ITS ---
APPROVED REPORT Exam: Resting ECG HR:63 bpm ECG Measurements Heart Rate [address] 157 P 65 QRSd 88 QRS 10 QT 456 T 57 QTc 464 Conclusion SINUS RHYTHM LOW QRS VOLTAGE IN PRECORDIAL LEADS [QRS DEFLECTION < 1.0 mV IN CHEST LEADS] PROLONGED QT INTERVAL ABNORMAL ECG No STEMI Electronically signed by : KAREN FARMER, 08/20/2024 07:07:32
[2024-08-19 16:05] LABS: Blood Urea Nitrogen 13 mg/dl (7-17); Creatinine Clearance Estimated 57 mL/min (50-200); Estimated Glomerular Filt Rate 72 ml/min (>60); GFR (African American) 87 ML/MIN (>60)
[2024-08-19 16:06] LABS: Alanine Aminotransferase 17 U/L (12-78); Alkaline Phosphatase 73 U/L (38-126); Anion Gap 9.7 mEq/L (5-15); Aspartate Amino Transferase 21 U/L (14-36); Bilirubin,Total 0.2 mg/dl (0.2-1.3); Calcium 7.3 mg/dl (8.4-10.2); Carbon Dioxide 26 mmol/L (22.0-30.0); Globulin 3.2 g/dL (1.3-3.2); Glucose 106 mg/dl (74-100); Total Protein,Serum 6.3 g/dl (6.3-8.2)
[2024-08-19 16:08] LABS: Magnesium 0.8 mg/dl (1.6-2.3)
--- NOTE | 2024-08-19 16:08 | PC.NURSE ---
Remington Ariza notified of Mag 0.8.
[2024-08-19 16:09] LABS: Potassium 2.7 mmoL/L (3.5-5.1)
--- NOTE | 2024-08-19 16:09 | PC.NURSE ---
1609 - Mg 0.8, K+2.7, CORBIN Ariza notified.
--- NOTE | 2024-08-19 16:09 | PC.NURSE ---
Remington Ariza notified of K+2.7.
--- NOTE | 2024-08-19 16:23 | PC.NURSE ---
rounded on the pt. the pt voices that she does not need anything at this time. call light is within reach of the pt. is present at the bedside.
[2024-08-19] MEDS: MAGNESIUM SULFATE IN WATER 2 GM/50 ML PIGGYBACK IV ×2 (16:24→20:04)
[2024-08-19 16:25] LABS: Troponin I < 0.01 ng/ml (0.00-0.034)
[2024-08-19] MEDS: POTASSIUM CHLORIDE 20MEQ TAB 60 MEQ PO (16:25)
[2024-08-19 16:28] LABS: NT Pro Brain Natriuretic Pep. 503 pg/mL (0-125)
--- NOTE | 2024-08-19 17:32 | PC.NURSE ---
[facility] DRIVER NOTIFIED OF ADMISSION
--- NOTE | 2024-08-19 17:41 | PC.NURSE ---
REPORT GIVEN TO STEFFI HYDE
--- NOTE | 2024-08-19 17:47 | PC.NURSE ---
rounded on the pt. the pt voices that she does not need anything at this time. call light is within reach of the pt.
[2024-08-19] MEDS: CALCIUM GLUC IN NACL, ISO-OSM 1 GM/50 ML BAG IV (18:42)
[2024-08-19] MEDS: 0.9 % SODIUM CHLORIDE 1000ML 1,000 ML 75 ML IV (18:42)
[2024-08-19 20:21] LABS: Troponin I < 0.01 ng/ml (0.00-0.034)
[2024-08-19] MEDS: KCl 20mEq/100ml 100 ML 50 MEQ IV ×2 (21:13→23:14)
--- NOTE | 2024-08-19 21:29 | P.HP_ITS ---
History of Present Illness *History of present illness: Davina Vidal is a 68-year-old female with a history of colon cancer with colostomy who presents for syncope and admitted for the same. Patient states she was on her way to pain management clinic, bent over to unlock wheelchair and syncopized. At this time, she denies prodromal symptoms. Initial vitals normal. Potassium 2.7, magnesium 0.8. CT head did not show acute findings. Case discussed with ED provider and decision was made to admit patient for further evaluation of syncope, and management of electrolyte abnormalities. [facility] Disclaimer: The information contained in this section may have been updated after the patient was seen, as this information can be updated by other users. Medical History History of pulmonary embolism COPD mixed type Thrombosis Hemorrhoids Cataract Hypokalemia Claudication Pleural effusion, left Stopped smoking with greater than 30 pack year history Dyspnea on exertion Edema HHD (hypertensive heart disease) Elevated left ventricular end-diastolic pressure (LVEDP) CAD (coronary artery disease) Numbness Coronary artery calcification seen on CT scan COPD (chronic obstructive pulmonary disease) Tobacco abuse PRAKASH on CPAP SOB (shortness of breath) HTN (hypertension) Vitamin D deficiency (~11/21/17) Hyperlipidemia (~11/21/17) Surgical History History of carpal tunnel release History of cholecystectomy H/O: hysterectomy History of intestinal surgery Family History Other No significant family history Social History Smoking Status: Former smoker tobacco type: cigarettes packs per day: 1 years smoked: 45 smoking status stop date: 2017 second hand exposure: Yes alcohol intake: never substance use type: marijuana current occupational status: other Travel in the last 8 weeks: None household members: spouse housing: house current occupational exposures/hazards: No caffeine: No Other Medical History Have you received the Flu Vaccine for this season: Yes Have you received the Pneumonia Vaccine: No Meds Home Medications and Allergies Home Medications ?Medication ?Instructions ?Recorded ?Confirmed ?Type fluticasone propionate 50 1 inh inhalation BIDP PRN allergies 09/23/23 08/24/24 History mcg/actuation blister powder for inhalation multivitamin 1 tab PO DAILY 09/23/23 08/24/24 History ondansetron 4 mg disintegrating 4 mg PO Q8HP PRN nausea/vomiting 09/23/23 08/24/24 History tablet alendronate 70 mg tablet 70 mg PO WEEKLY OSTEOARTHRITIS #14 11/01/23 08/24/24 Rx tabs rosuvastatin 20 mg tablet 20 mg PO HS Cholesterol #90 tabs 11/01/23 08/24/24 Rx methenamine hippurate 1 gram tablet 1 g PO BID 11/27/23 08/24/24 History albuterol sulfate 90 mcg/actuation 2 puff inhalation QIDP PRN sob 12/03/23 08/24/24 Rx aerosol inhaler #8.5 grams tiotropium 2.5 mcg-olodaterol 2.5 2 puff inhalation DAILY Breathing 12/03/23 08/24/24 Rx mcg/actuation mist for inhalation problems #4 grams (Stiolto Respimat) ropinirole 0.5 mg tablet 0.5 mg PO HS #30 tabs 06/15/24 08/24/24 Rx tizanidine 4 mg tablet (Zanaflex) 4 mg PO TID PRN muscle spasms #90 06/15/24 08/24/24 Rx tabs gabapentin 100 mg capsule 100 mg PO BID #60 caps 07/27/24 08/24/24 Rx ergocalciferol (vitamin D2) 1,250 1,250 mcg PO WEEKLY Supplement #5 08/03/24 08/24/24 Rx mcg (50,000 unit) capsule caps bupropion HCl 75 mg tablet 150 mg PO 06,12 08/20/24 08/24/24 History cefdinir 300 mg capsule 300 mg PO BID #20 caps 08/20/24 08/24/24 Rx levothyroxine 50 mcg tablet 50 mcg PO DAILY 08/20/24 08/24/24 History pantoprazole 40 mg tablet,delayed 40 mg PO BID 08/20/24 08/24/24 History release potassium chloride 20 mEq 20 meq PO DAILY 08/20/24 08/24/24 History tablet,extended release(part/cryst) trazodone 100 mg tablet 200 mg PO HS Insomnia 08/20/24 08/24/24 History oxycodone-acetaminophen 5 mg-325 1 tab PO Q8H PRN pain #90 tabs 08/24/24 08/24/24 Rx mg tablet (Percocet) semaglutide (weight loss) 0.5 0.5 mg (0.5 mL) SQ WEEKLY #2 mL 08/25/24 Rx mg/0.5 mL subcutaneous pen injector (Wegovy) New Prescriptions to Start Prescriptions: Julio Lee Allergies Allergy/AdvReac Type Severity Reaction Status Date / Time codeine Allergy Intermediate I-HIVES Verified 08/24/24 13:45 sulfamethoxazole (From Allergy Intermediate I-HIVES Verified 08/24/24 13:45 ) trimethoprim (From ) Allergy Intermediate I-HIVES Verified 08/24/24 13:45 ibuprofen (IBUPROFEN) Allergy Unknown VOMITING Verified 08/24/24 13:45 Exam Data for Last 24 hours Vital signs and Labs for Last 24 Hours: Temp Pulse Resp BP Pulse Ox O2 Del Method 98.2 F 70 16 141/69 H 93 L Room Air 08/19/24 21:03 08/19/24 21:03 08/19/24 21:03 08/19/24 21:03 08/19/24 21:03 08/19/24 21:03 Laboratory Results - last 24 hr 08/19/24 15:33: WBC 7.4, RBC 3.53 L, Hgb 9.9 L, Hct 31.1 L, MCV 88.1, MCH 28.0, MCHC 31.8, RDW 16.8, Plt Count 179, MPV 11.2 H, Neut % (Auto) 77.1, Lymph % (Auto) 12.6, Alger % (Auto) 8.9, Eos % (Auto) 0.8, Baso % (Auto) 0.3, Neut # (Auto) 5.7, Lymph # (Auto) 0.9, Alger # (Auto) 0.7, Eos # (Auto) 0.1, Baso # (Auto) 0.0, Sodium 137, Potassium 2.7 L*, Chloride 104, Carbon Dioxide 26, Anion Gap 9.7, BUN 13, Creatinine 0.80, Estimated Creat Clear 57, Estimated GFR 72, Est GFR ( Amer) 87, Glucose 106 H, Calcium 7.3 L, Magnesium 0.8 L, Total Bilirubin 0.2, AST 21, ALT 17, Alkaline Phosphatase 73, Troponin I < 0.01, NT-Pro-B Natriuret Pep 503 H, Total Protein 6.3, Albumin 3.1 L, Globulin 3.2, Albumin/Globulin Ratio 1.0 L 08/19/24 19:36: Troponin I < 0.01 I & O for Last 24 hours: Intake & Output 08/16/24 08/17/24 08/18/24 08/19/24 23:59 23:59 23:59 23:59 Weight 66.678 kg Constitutional Constitutional: no acute distress *Routine HEENT Exam Head: Present normocephalic Eye: Present EOMI and PERRL ENT: Present mucous membranes moist *Routine Neck Exam Neck: Present supple; Absent lymphadenopathy *Routine Respiratory Exam Respiratory: Present CTA bilaterally *Routine Cardiovascular Exam Cardiovascular: Present RRR *Routine Abdominal Exam Abdominal: Present soft and normoactive bowel sounds; Absent tenderness Comments: Colostomy site viable. *Routine Rectal Exam Rectal:: deferred *Routine Genitalia Exam Genitalia:: deferred *Routine Extremities Exam Extremities: Absent cyanosis, clubbing or edema *Routine Skin Exam Skin: Present warm; Absent rash *Routine Neurological Exam Neurological: Present alert and oriented X3 Assessment and Plan *Assessment and plan (1) Hypokalemia: Status: Acute Category: Medical Code(s): E87.6 - Hypokalemia Plan Davina Vidal is a 68-year-old female with a history of colon cancer with colostomy who presents for syncope and admitted for the same. Patient states she was on her way to pain management clinic, bent over to unlock wheelchair and syncopized. At this time, she denies prodromal symptoms. Initial vitals normal. Potassium 2.7, magnesium 0.8. CT head did not show acute findings. Case discussed with ED provider and decision was made to admit patient for further evaluation of syncope, and management of electrolyte abnormalities. #Syncope #Hypokalemia #Hypomagnesemia ? Patient states she was on her way to pain management clinic, bent over to unlock wheelchair and syncopized. At this time, she denies prodromal symptoms. ? Initial potassium 2.7, magnesium 0.8. Patient denies nausea/vomiting/diarrhea, but does states she has not been drinking/eating that much recently. Not on diuretics. Apparently she is supposed be on potassium supplementation daily, which she has not been taking. ? Given oral potassium 60 mill equivalents in the ED. Ordered IV potassium 40 mEq. Renal function normal. ? Given IV magnesium 2 g in the ED. Ordered additional IV magnesium 2 g. ? Follow-up ECHO, some suspicion of cardiogenic etiology given no prodromal symptoms and electrolyte abnormalities. ? Continuous cardiac telemetry. ? Follow-up orthostatic vitals. #Hypothyroidism ? Resume home levothyroxine. #COPD ? Resume home LAMA/LABA. #Anxiety/depression ? Resume home bupropion, trazodone. Full code DVT prophylaxis: Lovenox 40 mg
[2024-08-19] MEDS: OXYCODONE 5MG W/APAP 325MG TABLET 1 EACH PO (21:54)
[2024-08-19] MEDS: GABAPENTIN 100MG CAPSULE 100 MG PO (21:56)
[2024-08-19 22:52] LABS: Troponin I < 0.01 ng/ml (0.00-0.034)
[2024-08-20] VITALS: BP 136/65; PULSE 67; PULSE 70; RESP 16; TEMP 36.7; O2SAT 93
[2024-08-20 04:00] VITALS: BP 109/63; PULSE 60; PULSE 65; RESP 16; TEMP 36.4; O2SAT 95; BMI 27.1
[2024-08-20 04:44] VITALS: BP 120/81; BP 137/88; BP 145/89; PULSE 56; PULSE 64; PULSE 72
--- NOTE | 2024-08-20 05:07 | PC.NURSE ---
Pt. is alert and orientated x 4. Pt. is on room air during the day and wears O2 2 liters per NC at night. Pt. was admitted at change of shift with low potassium and low magnesium levels. IV fluids infusing. Potassium and Magnesium replaced with IV infusions. Pt. has chronic back pain. . Medicated for back pain. Pt. pleasent. Pt. sleeping at intervals. court monitor was not picking up heart rhythm or heart rate. leads changed, moniotrs changed until rhythm and rate were picked up. Pt. has an ostomy and is independent in emptying it as needed. Liquids stool in ostomy.VSS, personal items and call maguire in reach.
[2024-08-20] MEDS: OXYCODONE 5MG W/APAP 325MG TABLET 1 EACH PO ×2 (06:59→14:09)
[2024-08-20 07:07] LABS: Basophils % 0.6 % (0.1-2.0); Eosinophils # 0.1 K/mm3 (0.0-0.4); Eosinophils % 1.7 % (0.1-12.0); Hematocrit 29.9 % (37.0-47.0); Hemoglobin 9.5 g/dL (12.2-16.2); Lymphocytes # 0.8 K/mm3 (0.7-4.5); Lymphocytes % 17.1 % (10-50); Mean Corpuscular HGB Conc 31.8 g/dL (31.8-35.4); Mean Corpuscular Hemoglobin 27.8 pg (27.0-31.2); Mean Corpuscular Volume 87.4 fl (81-99); Mean Platelet Volume 11.4 fl (7.4-10.4); Monocytes # 0.5 K/mm3 (0.1-1.0); Monocytes % 10.2 % (1.7-9.3); Neutrophils # 3.4 K/mm3 (1.8-7.8); Platelet Count 190 K/mm3 (142-424); Red Blood Count 3.42 M/mm3 (4.20-5.40); Red Cell Distribution Width 16.7 % (11.5-17.5); White Blood Count 4.8 K/mm3 (4.8-10.8)
[2024-08-20 07:33] LABS: Anion Gap 7.8 mEq/L (5-15); Blood Urea Nitrogen 9 mg/dl (7-17); Carbon Dioxide 24 mmol/L (22.0-30.0); Chloride 111 mmol/L (98-107); Creatinine Clearance Estimated 61 mL/min (50-200); Potassium 3.8 mmoL/L (3.5-5.1); Sodium 139 mmol/L (136-145)
[2024-08-20 07:34] LABS: Alanine Aminotransferase 15 U/L (12-78); Albumin Level 2.7 g/dl (3.5-5.0); Alkaline Phosphatase 78 U/L (38-126); Aspartate Amino Transferase 19 U/L (14-36); Bilirubin,Total 0.1 mg/dl (0.2-1.3); Calcium 7.3 mg/dl (8.4-10.2); Estimated Glomerular Filt Rate 72 ml/min (>60); GFR (African American) 87 ML/MIN (>60); Globulin 2.8 g/dL (1.3-3.2); Glucose 98 mg/dl (74-100); Total Protein,Serum 5.5 g/dl (6.3-8.2)
[2024-08-20 08:00] VITALS: BP 165/94; PULSE 70; PULSE 71; RESP 20; TEMP 36.9; O2SAT 93
[2024-08-20] MEDS: buPROPion HCL 75 MG TABLET PO (08:26)
[2024-08-20] MEDS: LEVOTHYROXINE 50MCG (0.05MG) TAB 50 MCG PO (08:26)
[2024-08-20] MEDS: POTASSIUM CHLORIDE 20MEQ TAB 20 MEQ PO (08:26)
[2024-08-20] MEDS: GABAPENTIN 100MG CAPSULE 100 MG PO (08:26)
[2024-08-20] MEDS: 0.9 % SODIUM CHLORIDE 1000ML 1,000 ML 75 ML IV (08:27)
--- NOTE | 2024-08-20 08:38 | EXP.CARD.CON ---
History of Present Illness History of Present Illness Consult date: 08/20/24 Requesting physician: Julio Suggs Chief complaint: syncope, electrolyte abnormalities Additional Medical History:: 1. History of two provoked PE's (2002 due to hormone replacement and 2022 after abdominal surgery) -transient anticoagulant treatment both times -recommendation for temporary anticoagulation when having surgery or high stress situations like hospitalization, Dr. Myers, 05/2024 2. CAD is present and likely stable. -Medical management 07/30/2023 -Mild non flow limiting, 10/2018. -On ASA. 3. HTN-BP stable. -echo, 4. HLD -On statin. LDL 57.98 in 11/2023. 5. Ex smoker -greater than 30 pack yr history 6. Chronic pain -Degenerative disc lumbar spine multilevels. Lumbar radiculopathy. Lumbar spondylosis. Multilevel lumbar facet arthropathy. 7. History of anal cancer -ostomy in place History of present illness: 68 yo WF was admitted for syncope after bending over to adjust wheelchair/get in to wheelchair yesterday while here at hospital at [facility], [place]. Pt states this happens a couple times per year when she is bending over. She relates having some abdominal discomfort/nausea yesterday morning and took a zofran also. Denies any chest pain, pressure or tightness prior to the fall. Similar symptoms last year prompted a reduction in her coreg which did help. No arrhythmias noted on telemetry overnight and troponins are normal. Cardiac cath last year showed only mild, non-obstructive disease. CT of head unremarkable. Pt is feeling better this AM. Denies any recent GI illness. [facility] Disclaimer: The information contained in this section may have been updated after the patient was seen, as this information can be updated by other users. Medical History History of pulmonary embolism COPD mixed type Thrombosis Hemorrhoids Cataract Hypokalemia Claudication Pleural effusion, left Stopped smoking with greater than 30 pack year history Dyspnea on exertion Edema HHD (hypertensive heart disease) Elevated left ventricular end-diastolic pressure (LVEDP) CAD (coronary artery disease) Numbness Coronary artery calcification seen on CT scan COPD (chronic obstructive pulmonary disease) Tobacco abuse PRAKASH on CPAP SOB (shortness of breath) HTN (hypertension) Vitamin D deficiency (~11/21/17) Hyperlipidemia (~11/21/17) Surgical History History of carpal tunnel release History of cholecystectomy H/O: hysterectomy History of intestinal surgery Family History Other No significant family history Social History Smoking Status: Former smoker tobacco type: cigarettes packs per day: 1 years smoked: 45 smoking status stop date: 2017 second hand exposure: Yes alcohol intake: never substance use type: marijuana current occupational status: other Travel in the last 8 weeks: None household members: spouse housing: house current occupational exposures/hazards: No caffeine: No Have you lived/traveled outside [place] in past 30 days?: No Contact w/someone who lives/traveled outside [place] past 30 days?: No Exposure to someone with infectious disease in past 14 days?: No Do you have a fever (greater than 100.4 F or 38 C)?: No Have you tested positive for COVID-19: No Exposed to someone with COVID-19 in past 14 days?: No Do you have a sore throat?: No Do you have a cough?: No Do you have any weakness?: No Do you have any diarrhea?: No Are you experiencing any unusual bleeding?: No Do you have any muscle aches/pain?: No Do you have any abdominal pain?: No Are you experiencing loss of taste or smell?: No Review of Systems Review of Systems Review of systems:: pertinent systems reviewed and negative unless documented below *Cardiovascular Cardiovascular: Denies chest pain and Denies dyspnea *Respiratory Respiratory: Denies cough and Denies dyspnea Exam Data for Last 24 hours Vital signs and Labs for Last 24 Hours: Temp Pulse Resp BP Pulse Ox O2 Del Method O2 Flow Rate 97.5 F L 64 16 145/89 H 95 Nasal Cannula 2 08/20/24 04:00 08/20/24 04:44 08/20/24 04:00 08/20/24 04:44 08/20/24 04:00 08/20/24 07:00 08/20/24 07:00 Laboratory Results - last 24 hr 08/19/24 15:33: WBC 7.4, RBC 3.53 L, Hgb 9.9 L, Hct 31.1 L, MCV 88.1, MCH 28.0, MCHC 31.8, RDW 16.8, Plt Count 179, MPV 11.2 H, Neut % (Auto) 77.1, Lymph % (Auto) 12.6, Riley % (Auto) 8.9, Eos % (Auto) 0.8, Baso % (Auto) 0.3, Neut # (Auto) 5.7, Lymph # (Auto) 0.9, Riley # (Auto) 0.7, Eos # (Auto) 0.1, Baso # (Auto) 0.0, Sodium 137, Potassium 2.7 L*, Chloride 104, Carbon Dioxide 26, Anion Gap 9.7, BUN 13, Creatinine 0.80, Estimated Creat Clear 57, Estimated GFR 72, Est GFR ( Amer) 87, Glucose 106 H, Calcium 7.3 L, Magnesium 0.8 L, Total Bilirubin 0.2, AST 21, ALT 17, Alkaline Phosphatase 73, Troponin I < 0.01, NT-Pro-B Natriuret Pep 503 H, Total Protein 6.3, Albumin 3.1 L, Globulin 3.2, Albumin/Globulin Ratio 1.0 L 08/19/24 19:36: Troponin I < 0.01 08/19/24 22:16: Troponin I < 0.01 08/20/24 06:18: WBC 4.8 D, RBC 3.42 L, Hgb 9.5 L, Hct 29.9 L, MCV 87.4, MCH 27.8, MCHC 31.8, RDW 16.7, Plt Count 190, MPV 11.4 H, Neut % (Auto) 70.0, Lymph % (Auto) 17.1, Riley % (Auto) 10.2 H, Eos % (Auto) 1.7, Baso % (Auto) 0.6, Neut # (Auto) 3.4, Lymph # (Auto) 0.8, Riley # (Auto) 0.5, Eos # (Auto) 0.1, Baso # (Auto) 0.0, Sodium 139, Potassium 3.8 D, Chloride 111 H, Carbon Dioxide 24, Anion Gap 7.8, BUN 9 D, Creatinine 0.80, Estimated Creat Clear 61, Estimated GFR 72, Est GFR ( Amer) 87, Glucose 98, Calcium 7.3 L, Magnesium 2.0 D, Total Bilirubin 0.1 L, AST 19, ALT 15, Alkaline Phosphatase 78, Total Protein 5.5 L, Albumin 2.7 L D, Globulin 2.8, Albumin/Globulin Ratio 1.0 L I & O for Last 24 hours: Intake & Output 08/17/24 08/18/24 08/19/24 08/20/24 11:59 11:59 11:59 11:59 Intake Total 650 / 650 Output Total Balance 649 / 649 Weight 153 lb 8 oz Constitutional Constitutional: no acute distress *Routine Respiratory Exam Respiratory: Present CTA bilaterally *Routine Cardiovascular Exam Cardiovascular: Present RRR; Absent murmur, gallop or rubs Meds Home Medications and Allergies Home Medications ?Medication ?Instructions ?Recorded ?Confirmed ?Type fluticasone propionate 50 1 inh inhalation BIDP PRN allergies 09/23/23 08/19/24 History mcg/actuation blister powder for inhalation multivitamin 1 tab PO DAILY 09/23/23 08/19/24 History ondansetron 4 mg disintegrating 4 mg PO Q8HP PRN nausea/vomiting 09/23/23 08/19/24 History tablet alendronate 70 mg tablet 70 mg PO WEEKLY OSTEOARTHRITIS #14 11/01/23 08/19/24 Rx tabs rosuvastatin 20 mg tablet 20 mg PO HS Cholesterol #90 tabs 11/01/23 08/19/24 Rx methenamine hippurate 1 gram tablet 1 g PO BID 11/27/23 08/19/24 History albuterol sulfate 90 mcg/actuation 2 puff inhalation QIDP PRN sob 12/03/23 08/19/24 Rx aerosol inhaler #8.5 grams tiotropium 2.5 mcg-olodaterol 2.5 2 puff inhalation DAILY Breathing 12/03/23 08/19/24 Rx mcg/actuation mist for inhalation problems #4 grams (Stiolto Respimat) carvedilol 3.125 mg tablet (Coreg) 3.125 mg PO BID 90 days #180 tabs 06/12/24 08/19/24 Rx ropinirole 0.5 mg tablet 0.5 mg PO HS #30 tabs 06/15/24 08/19/24 Rx tizanidine 4 mg tablet (Zanaflex) 4 mg PO TID PRN muscle spasms #90 06/15/24 08/19/24 Rx tabs gabapentin 100 mg capsule 100 mg PO BID #60 caps 07/27/24 08/19/24 Rx oxycodone-acetaminophen 5 mg-325 1 tab PO Q8H PRN pain #90 tabs 07/27/24 08/19/24 Rx mg tablet (Percocet) silver sulfadiazine 1 % topical 1 applic topical BID #25 grams 07/27/24 08/19/24 Rx cream (Silvadene) ergocalciferol (vitamin D2) 1,250 1,250 mcg PO WEEKLY Supplement #5 08/03/24 08/19/24 Rx mcg (50,000 unit) capsule caps semaglutide (weight loss) 0.5 0.5 mg (0.5 mL) SQ WEEKLY #2 mL 08/03/24 08/19/24 Rx mg/0.5 mL subcutaneous pen injector (Weanjelicavy) bupropion HCl 75 mg tablet 150 mg PO 06,12 08/20/24 08/20/24 History levothyroxine 50 mcg tablet 50 mcg PO DAILY 08/20/24 08/19/24 History pantoprazole 40 mg tablet,delayed 40 mg PO BID 08/20/24 08/20/24 History release potassium chloride 20 mEq 20 meq PO DAILY 08/20/24 08/20/24 History tablet,extended release(part/cryst) trazodone 100 mg tablet 200 mg PO HS Insomnia 08/20/24 08/20/24 History New Prescriptions to Start Prescriptions: Allergies Allergy/AdvReac Type Severity Reaction Status Date / Time codeine Allergy Intermediate I-HIVES Verified 08/04/24 10:23 sulfamethoxazole (From Allergy Intermediate I-HIVES Verified 08/04/24 10:23 Sept) trimethoprim (From ) Allergy Intermediate I-HIVES Verified 08/04/24 10:23 ibuprofen (IBUPROFEN) Allergy Unknown VOMITING Verified 08/04/24 10:23 Assessment and Plan *Assessment and plan (1) Fall: Status: Acute Qualifiers: Encounter type: initial encounter Qualified Code(s): W19.XXXA - Unspecified fall, initial encounter Category: Medical Code(s): W19.XXXA - Unspecified fall, initial encounter (2) Hypokalemia: Status: Acute Category: Medical Code(s): E87.6 - Hypokalemia (3) Hypomagnesemia: Status: Acute Category: Medical Code(s): E83.42 - Hypomagnesemia (4) Hypocalcemia: Status: Acute Category: Medical Code(s): E83.51 - Hypocalcemia Plan 1. Fall with head trauma -Head and cervical spine CT's unremarkable -Fall likely due to drop in HR/BP -no evidence of [place] or arrhythmias -history of bradycardia 2. Hypokalemia, resolved -supplement added 3. Hypomagnesemia, resolved -replacement started 4. Hypocalcemia -supplement started 5. CAD, mild to moderate by cath, 07/2023 -troponins normal -echo pending but preliminary looks good 6. History of Tobacco use/COPD 7. Chronic pain from back issues 8. History of cancer with ostomy in place Will stop coreg due to bradycardia. Recommend 2 wks event monitor at discharge. Nothing further to add. Stable for discharge from cardiology standpoint. Follow up in office in 3 wks.
[2024-08-20 09:07] LABS: Microscopic, Urine URINE MICROSCOPIC (MICROSCOPIC)
--- NOTE | 2024-08-20 09:21 | HMH.PHAINT1 ---
Pharmacy Intervention Comments: home medication list verified using list from outpatient pharmacy
[2024-08-20 09:25] LABS: Appearance,Urine SL CLOUDY (Clear); Bilirubin,Urine Negative (Negative); Blood, Urine Negative (Negative); Color,Urine YELLOW (Yellow); Glucose,Urine (UA) Negative (Negative); Ketones,Urine Negative (Negative); Leukocyte Esterase,Urine 2+ (Negative); Nitrate,Urine Negative (Negative); Protein,Urine TRACE (Negative); Specific Gravity, Urine 1.025 (1.005-1.030); Urobilinogen,Urine 0.2 EU/dl (0.2)
[2024-08-20 09:38] LABS: Bacteria,Urine 2+ /lpf; RBC,Urine Occasional #/hpf (0-3); Squamous Epithelial Cell,Urine Occasional #/hpf (0-5); WBC,Urine 20-50 #/hpf (0-3)
[2024-08-20] MEDS: CEFTRIAXONE 1 GM 1 GM in 0.9 % SODIUM CHLORIDE 50 ML IV (11:34)
[2024-08-20 12:00] VITALS: BP 193/89; PULSE 62; PULSE 70; RESP 18; TEMP 36.6; O2SAT 97
[2024-08-20] MEDS: buPROPion HCL 75 MG TABLET 150 MG PO (14:13)
--- NOTE | 2024-08-20 14:46 | P.DS_ITS ---
General Admission date:: 08/19/24 HPI HPI HPI: Davina Vidal is a 68-year-old female who presents for syncope and admitted for the same. #Syncope #Hypokalemia #Hypomagnesemia ? Patient states she was on her way to pain management clinic, bent over to unlock wheelchair and syncopized. At this time, she denies prodromal symptoms. ? Initial potassium 2.7, magnesium 0.8. Patient denies nausea/vomiting/diarrhea /decreased oral intake. Not on diuretics. Apparently she is supposed be on potassium supplementation daily, which she has not been taking. ? Given oral potassium 60 mill equivalents in the ED. Ordered IV potassium 40 mEq. ? Given IV magnesium 2 g in the ED. Ordered additional IV magnesium 2 g. ? Follow-up ECHO, some suspicion of cardiogenic etiology given no prodromal symptoms and electrolyte abnormalities. ? Continuous cardiac telemetry. ? Follow-up orthostatic vitals. Hospital Course Hospital Course Hospital Course: Davina Vidal is a 68-year-old female with a history of colon cancer with colostomy who presents for syncope and admitted for the same. Patient states she was on her way to pain management clinic, bent over to unlock wheelchair and syncopized. At this time, she denies prodromal symptoms. Initial vitals normal. Potassium 2.7, magnesium 0.8. CT head did not show acute findings. Case discussed with ED provider and decision was made to admit patient for further evaluation of syncope, and management of electrolyte abnormalities. #Syncope, vasovagal #Hypokalemia #Hypomagnesemia ? Patient states she was on her way to pain management clinic, bent over to unlock wheelchair and syncopized. At this time, she denies prodromal symptoms. ? Initial potassium 2.7, magnesium 0.8. Patient denies nausea/vomiting/diarrhea, but does states she has not been drinking/eating that much recently. Not on diuretics. Apparently she is supposed be on potassium supplementation daily, which she has not been taking. ? Symptoms most consistent with vasovagal syncope in the setting of decreased oral intake recently. ? Clinically improved with electronic repletion, IV fluids. Tolerating p.o. intake without nausea/vomiting. ? Cardiology consulted, recommended stopping Coreg due to episodes of bradycardia.ECHO shows normal biventricular function. ? Advised patient to be adherent to her medications, stay hydrated and eat nutritious meals, and follow-up with PCP within 1 week. #UTI ? Patient having polyuria, UA grossly abnormal. Urine culture pending. Can explain decreased oral appetite recently. ? Discharged with cefdinir for 4 more days. #History of anal cancer s/p colectomy with colostomy ? Colostomy site viable. No signs of infection. #Degenerative disc disease #Chronic compression fracture ? Continue home hydrocodone, alendronate. #Hypothyroidism ? Resume home levothyroxine. #COPD ? Resume home LAMA/LABA. #Anxiety/depression ? Resume home bupropion, trazodone. Exam Data for Last 24 hours Vital signs and Labs for Last 24 Hours: Temp Pulse Resp BP Pulse Ox O2 Del Method O2 Flow Rate 97.8 F 62 18 193/89 H 97 Room Air 2 08/20/24 12:00 08/20/24 12:00 08/20/24 12:00 08/20/24 12:00 08/20/24 12:00 08/20/24 14:38 08/20/24 08:00 Laboratory Results - last 24 hr 08/19/24 15:33: WBC 7.4, RBC 3.53 L, Hgb 9.9 L, Hct 31.1 L, MCV 88.1, MCH 28.0, MCHC 31.8, RDW 16.8, Plt Count 179, MPV 11.2 H, Neut % (Auto) 77.1, Lymph % (Auto) 12.6, [place] % (Auto) 8.9, Eos % (Auto) 0.8, Baso % (Auto) 0.3, Neut # (Auto) 5.7, Lymph # (Auto) 0.9, [place] # (Auto) 0.7, Eos # (Auto) 0.1, Baso # (Auto) 0.0, Sodium 137, Potassium 2.7 L*, Chloride 104, Carbon Dioxide 26, Anion Gap 9.7, BUN 13, Creatinine 0.80, Estimated Creat Clear 57, Estimated GFR 72, Est GFR ( Amer) 87, Glucose 106 H, Calcium 7.3 L, Magnesium 0.8 L, Total Bilirubin 0.2, AST 21, ALT 17, Alkaline Phosphatase 73, Troponin I < 0.01, NT-Pro-B Natriuret Pep 503 H, Total Protein 6.3, Albumin 3.1 L, Globulin 3.2, Albumin/Globulin Ratio 1.0 L 08/19/24 19:36: Troponin I < 0.01 08/19/24 22:16: Troponin I < 0.01 08/20/24 06:18: WBC 4.8 D, RBC 3.42 L, Hgb 9.5 L, Hct 29.9 L, MCV 87.4, MCH 27.8, MCHC 31.8, RDW 16.7, Plt Count 190, MPV 11.4 H, Neut % (Auto) 70.0, Lymph % (Auto) 17.1, [place] % (Auto) 10.2 H, Eos % (Auto) 1.7, Baso % (Auto) 0.6, Neut # (Auto) 3.4, Lymph # (Auto) 0.8, [place] # (Auto) 0.5, Eos # (Auto) 0.1, Baso # (Auto) 0.0, Sodium 139, Potassium 3.8 D, Chloride 111 H, Carbon Dioxide 24, Anion Gap 7.8, BUN 9 D, Creatinine 0.80, Estimated Creat Clear 61, Estimated GFR 72, Est GFR ( Amer) 87, Glucose 98, Calcium 7.3 L, Magnesium 2.0 D, Total Bilirubin 0.1 L, AST 19, ALT 15, Alkaline Phosphatase 78, Total Protein 5.5 L, Albumin 2.7 L D, Globulin 2.8, Albumin/Globulin Ratio 1.0 L 08/20/24 09:02: Urine Color Yellow, Urine Appearance Sl cloudy, Urine pH 6.0, Ur Specific [place] 1.025, Urine Protein Trace, Urine Glucose (UA) Negative, Urine Ketones Negative, Urine Blood Negative, Urine Nitrate Negative, Urine Bilirubin Negative, Urine Urobilinogen 0.2, Ur Leukocyte Esterase 2+ A, Urine RBC Occasional, Urine WBC 20-50, Ur Squamous Epith Cells Occasional, Urine Bacteria 2+ I & O for Last 24 hours: Intake & Output 08/17/24 08/18/24 08/19/24 08/20/24 23:59 23:59 23:59 23:59 Intake Total 1240 / 1240 Output Total 0 / 0 Balance 0 / 650 1239 / 1239 Weight 66.678 kg 69.626 kg Constitutional Constitutional: no acute distress *Routine HEENT Exam Head: Present normocephalic Eye: Present EOMI and PERRL ENT: Present mucous membranes moist *Routine Neck Exam Neck: Present supple; Absent lymphadenopathy *Routine Respiratory Exam Respiratory: Present CTA bilaterally *Routine Cardiovascular Exam Cardiovascular: Present RRR *Routine Abdominal Exam Abdominal: Present soft and normoactive bowel sounds; Absent tenderness Comments: Ostomy site viable. *Routine Extremities Exam Extremities: Absent cyanosis, clubbing or edema *Routine Skin Exam Skin: Present warm; Absent rash *Routine Neurological Exam Neurological: Present alert and oriented X3 Results Data Completed and Pending Labs on day of discharge: Labs from last 24 hours 08/20/24 08/20/24 08/19/24 09:02 06:18 22:16 WBC 4.8 D RBC 3.42 L Hgb 9.5 L Hct 29.9 L MCV 87.4 MCH 27.8 MCHC 31.8 RDW 16.7 Plt Count 190 MPV 11.4 H Neut % (Auto) 70.0 Lymph % (Auto) 17.1 [place] % (Auto) 10.2 H Eos % (Auto) 1.7 Baso % (Auto) 0.6 Neut # (Auto) 3.4 Lymph # (Auto) 0.8 [place] # (Auto) 0.5 Eos # (Auto) 0.1 Baso # (Auto) 0.0 Sodium 139 Potassium 3.8 D Chloride 111 H Carbon Dioxide 24 Anion Gap 7.8 BUN 9 D Creatinine 0.80 Estimated Creat Clear 61 Estimated GFR 72 Est GFR ( Amer) 87 Glucose 98 Calcium 7.3 L Magnesium 2.0 D Total Bilirubin 0.1 L AST 19 ALT 15 Alkaline Phosphatase 78 Troponin I < 0.01 NT-Pro-B Natriuret Pep Total Protein 5.5 L Albumin 2.7 L D Globulin 2.8 Albumin/Globulin Ratio 1.0 L Urine Color Yellow Urine Appearance Sl cloudy Urine pH 6.0 Ur Specific [place] 1.025 Urine Protein Trace Urine Glucose (UA) Negative Urine Ketones Negative Urine Blood Negative Urine Nitrate Negative Urine Bilirubin Negative Urine Urobilinogen 0.2 Ur Leukocyte Esterase 2+ A Urine RBC Occasional Urine WBC 20-50 Ur Squamous Epith Cells Occasional Urine Bacteria 2+ 08/19/24 08/19/24 19:36 15:33 WBC 7.4 RBC 3.53 L Hgb 9.9 L Hct 31.1 L MCV 88.1 MCH 28.0 MCHC 31.8 RDW 16.8 Plt Count 179 MPV 11.2 H Neut % (Auto) 77.1 Lymph % (Auto) 12.6 [place] % (Auto) 8.9 Eos % (Auto) 0.8 Baso % (Auto) 0.3 Neut # (Auto) 5.7 Lymph # (Auto) 0.9 [place] # (Auto) 0.7 Eos # (Auto) 0.1 Baso # (Auto) 0.0 Sodium 137 Potassium 2.7 L* Chloride 104 Carbon Dioxide 26 Anion Gap 9.7 BUN 13 Creatinine 0.80 Estimated Creat Clear 57 Estimated GFR 72 Est GFR ( Amer) 87 Glucose 106 H Calcium 7.3 L Magnesium 0.8 L Total Bilirubin 0.2 AST 21 ALT 17 Alkaline Phosphatase 73 Troponin I < 0.01 < 0.01 NT-Pro-B Natriuret Pep 503 H Total Protein 6.3 Albumin 3.1 L Globulin 3.2 Albumin/Globulin Ratio 1.0 L Urine Color Urine Appearance Urine pH Ur Specific [place] Urine Protein Urine Glucose (UA) Urine Ketones Urine Blood Urine Nitrate Urine Bilirubin Urine Urobilinogen Ur Leukocyte Esterase Urine RBC Urine WBC Ur Squamous Epith Cells Urine Bacteria DS: Diagnosis Discharge Diagnosis (1) Fall: Status: Acute Code(s): W19.XXXA - Unspecified fall, initial encounter Qualifiers: Encounter type: initial encounter Qualified Code(s): W19.XXXA - Unspecified fall, initial encounter (2) Hypokalemia: Status: Acute Code(s): E87.6 - Hypokalemia (3) Hypomagnesemia: Status: Acute Code(s): E83.42 - Hypomagnesemia (4) Hypocalcemia: Status: Acute Code(s): E83.51 - Hypocalcemia Meds Home Medications and Allergies Home Medications ?Medication ?Instructions ?Recorded ?Confirmed ?Type fluticasone propionate 50 1 inh inhalation BIDP PRN allergies 09/23/23 08/24/24 History mcg/actuation blister powder for inhalation multivitamin 1 tab PO DAILY 09/23/23 08/24/24 History ondansetron 4 mg disintegrating 4 mg PO Q8HP PRN nausea/vomiting 09/23/23 08/24/24 History tablet alendronate 70 mg tablet 70 mg PO WEEKLY OSTEOARTHRITIS #14 11/01/23 08/24/24 Rx tabs rosuvastatin 20 mg tablet 20 mg PO HS Cholesterol #90 tabs 11/01/23 08/24/24 Rx methenamine hippurate 1 gram tablet 1 g PO BID 11/27/23 08/24/24 History albuterol sulfate 90 mcg/actuation 2 puff inhalation QIDP PRN sob 12/03/23 08/24/24 Rx aerosol inhaler #8.5 grams tiotropium 2.5 mcg-olodaterol 2.5 2 puff inhalation DAILY Breathing 12/03/23 08/24/24 Rx mcg/actuation mist for inhalation problems #4 grams (Stiolto Respimat) ropinirole 0.5 mg tablet 0.5 mg PO HS #30 tabs 06/15/24 08/24/24 Rx tizanidine 4 mg tablet (Zanaflex) 4 mg PO TID PRN muscle spasms #90 06/15/24 08/24/24 Rx tabs gabapentin 100 mg capsule 100 mg PO BID #60 caps 07/27/24 08/24/24 Rx ergocalciferol (vitamin D2) 1,250 1,250 mcg PO WEEKLY Supplement #5 08/03/24 08/24/24 Rx mcg (50,000 unit) capsule caps bupropion HCl 75 mg tablet 150 mg PO 06,12 08/20/24 08/24/24 History cefdinir 300 mg capsule 300 mg PO BID #20 caps 08/20/24 08/24/24 Rx levothyroxine 50 mcg tablet 50 mcg PO DAILY 08/20/24 08/24/24 History pantoprazole 40 mg tablet,delayed 40 mg PO BID 08/20/24 08/24/24 History release potassium chloride 20 mEq 20 meq PO DAILY 08/20/24 08/24/24 History tablet,extended release(part/cryst) trazodone 100 mg tablet 200 mg PO HS Insomnia 08/20/24 08/24/24 History oxycodone-acetaminophen 5 mg-325 1 tab PO Q8H PRN pain #90 tabs 08/24/24 08/24/24 Rx mg tablet (Percocet) semaglutide (weight loss) 0.5 0.5 mg (0.5 mL) SQ WEEKLY #2 mL 08/25/24 Rx mg/0.5 mL subcutaneous pen injector (Wegovy) New Prescriptions to Start Prescriptions: cefdinir Julio Suggs Allergies Allergy/AdvReac Type Severity Reaction Status Date / Time codeine Allergy Intermediate I-HIVES Verified 08/24/24 13:45 sulfamethoxazole (From Allergy Intermediate I-HIVES Verified 08/24/24 13:45 Sept) trimethoprim (From ) Allergy Intermediate I-HIVES Verified 08/24/24 13:45 ibuprofen (IBUPROFEN) Allergy Unknown VOMITING Verified 08/24/24 13:45 Discharge Plan Disposition Patient Disposition: Home, Self-Care Condition: Fair Follow up Plan Follow up with: Rinku Russo PA [Physician [employer]] - 09/02/24 2:00 pm Prescriptions/Medication Reconciliation: New cefdinir 300 mg capsule 300 mg PO BID Qty: 20 0RF Continued alendronate 70 mg tablet 70 mg PO WEEKLY Qty: 14 10RF Rx Instructions: TAKE ONE TABLET BY MOUTH EVERY WEEK rosuvastatin 20 mg tablet 20 mg PO HS Qty: 90 3RF Rx Instructions: TAKE ONE TABLET BY MOUTH ONCE A DAY methenamine hippurate 1 gram tablet 1 g PO BID gabapentin 100 mg capsule 100 mg PO BID Qty: 60 1RF albuterol sulfate 90 mcg/actuation HFA aerosol inhaler 2 puff inhalation QIDP PRN (Reason: sob) Qty: 8.5 10RF Rx Instructions: INHALE 2 PUFFS BY MOUTH FOUR TIMES A DAY NEEDED FOR SHORTNESS OF BREATH OR WHEEZING Stiolto Respimat 2.5-2.5 mcg/actuation mist 2 puff inhalation DAILY Qty: 4 12RF ergocalciferol (vitamin D2) 1,250 mcg (50,000 unit) capsule 1,250 mcg PO WEEKLY Qty: 5 1RF ondansetron 4 mg tablet,disintegrating 4 mg PO Q8HP PRN (Reason: nausea/vomiting) multivitamin Tablet 1 tab PO DAILY fluticasone propionate 50 mcg/actuation Blister With Device 1 inh INHALATION BIDP PRN (Reason: allergies) tizanidine [Zanaflex] 4 mg tablet 4 mg PO TID PRN (Reason: muscle spasms) Qty: 90 2RF ropinirole 0.5 mg tablet 0.5 mg PO HS Qty: 30 2RF Rx Instructions: administer 1-3 hours before bedtime potassium chloride 20 mEq tablet,ER particles/crystals 20 meq PO DAILY trazodone 100 mg tablet 200 mg PO HS Rx Instructions: TAKE ONE-TWO TABLETS BY MOUTH AT BEDTIME levothyroxine 50 mcg tablet 50 mcg PO DAILY Rx Instructions: TAKE ONE TABLET BY MOUTH ONCE A DAY FOR THYROID pantoprazole 40 mg tablet,delayed release (DR/EC) 40 mg PO BID Rx Instructions: TAKE ONE TABLET BY MOUTH TWICE A DAY FOR GERD bupropion HCl 75 mg tablet 150 mg PO 06,12 Rx Instructions: TAKE 2 TABLETS BY MOUTH IN THE MORNING AND 2 TABLETS AT NOON (TAKE 6 HOURS APART) Discontinued carvedilol [Coreg] 3.125 mg tablet 3.125 mg PO BID 90 Days Qty: 180 3RF Rx Instructions: must administer with a meal/food No Action oxycodone-acetaminophen [Percocet] 5-325 mg tablet 1 tab PO Q8H PRN (Reason: pain) Qty: 90 0RF Wegovy 0.5 mg/0.5 mL pen injector 0.5 mg SQ WEEKLY Qty: 2 2RF Rx Instructions: administer weeks 5 through 8 of therapy Problem Reconciliation Problems Reviewed?: Yes Patient Discharge Instructions Print Language: Yoruba Providers Primary Care Provider: Roman Medina Admit Provider: Julio Suggs Attending Provider: Julio Suggs
--- NOTE | 2024-08-20 21:33 | CA_ITS ---
APPROVED REPORT EXAM: Comprehensive 2D, Doppler, and color-flow Echocardiogram [employer] Supervisor: Dalila Rubio CRT Ht: 5 ft 3 in Wt: 147lbs BSA: 1.70 BP: 141/69 mmHg Indications: COPD, CAD, Hyperlipidemia, Hypertension/HDD, Smoker, hx anal cancer Trivial pericardial effusion posteriorly on echo 07/30/23 M-Mode Dimensions RVDd 3.29 cm (0.9-2.6) LA Diam 2.93 cm (1.9-4.0) LVDd 4.32 cm (3.5-5.7) LVDs 2.93 cm (3.5-5.7) IVSd 1.32 cm (0.6-1.1) PWd 0.96 cm (0.6-1.1) EF (Teich) 60.70% FS 32.20% EDV (Teich) 84.00 mL TAPSE 1.82 (<1.7) ESV (Teich) 33.00 mL LV Diastology E Decel Time 227 (160-240 msec) E/A Ratio 0.92 MED A' 10.90 cm/s LAT A' 11.60 cm/s Aortic Valve AO Peak GR. 7.60 mmHg Mitral Valve MV A Velocity 84.0 (40-130 cm/s) E/A Ratio 0.92 Pulmonary Valve PV Peak Velocity 105.0 (50-150 cm/s) Tricuspid Valve TR P. Velocity 324.00 cm/s RAP Estimate 10.00 mmHg RVSP 51.90 mmHg Left Ventricle The left ventricle is normal size. The left ventricular systolic function is normal. The left ventricular ejection fraction is within the normal range. There is increased LV wall thickness. There is normal LV segmental wall motion. Transmitral Doppler flow pattern suggests impaired LV relaxation. LVEF is 55%. Right Ventricle Right ventricle is borderline dilated. The right ventricular systolic function is normal. Atria Left atrium is mildly dilated. Right atrium is mildly dilated. There is no Doppler evidence of interatrial shunt. Aortic Valve The aortic valve is mildly thickened. There is no aortic valvular stenosis. No aortic regurgitation is present. Mitral Valve The mitral valve is normal in structure. No evidence of mitral valve stenosis. Trace mitral valve regurgitation noted. Tricuspid Valve Tricuspid valve is grossly normal in structure and function. Mild tricuspid regurgitation. RVSP is 30-35 mmHg. Pulmonic Valve The pulmonary valve is normal in structure. Trace pulmonic regurgitation. Great Vessels The aortic root is normal in size. The ascending aorta is normal in size. IVC is normal in size and collapses >50% with inspiration. Pericardium There is no pericardial effusion. Other Information Study Quality: Fair Conclusion Normal biventricular systolic function. Borderline dilated RV. Mild biatrial dilation. Mild TR. RVSP 30-35 mmHg. Electronically signed by : Lisa Khanna MD 08/20/2024 13:19:16
--- NOTE | 2024-08-21 10:30 | SW/DCPLANNER ---
Spoke with patient on the phone. Patient stated that she is doing good. Patient stated that she is aware of her upcoming appointment. Patient stated that clinic pharmacy brought her medicine to her bedside before she was discharged. Patient stated that she has no concerns or questions at this time. Anita Azul
== END 2024-08-20 16:30 | disposition home or self-care (01) ==
LOC: ER 17:18 → 2ND 17:38
PROVIDERS: Physician Assistant; Admitting Provider Student in an Organized Health Care Education/Training Program; Emergency Provider Emergency Medicine; PCP Family Medicine; Visit Provider Student in an Organized Health Care Education/Training Program
DX: R55 Syncope and collapse (principal); E87.6 Hypokalemia; E83.42 Hypomagnesemia; E83.51 Hypocalcemia; W05.0XXA Fall from non-moving wheelchair, initial encounter; F32.A Depression, unspecified; F41.9 Anxiety disorder, unspecified; N39.0 Urinary tract infection, site not specified; G47.33 Obstructive sleep apnea (adult) (pediatric); J41.8 Mixed simple and mucopurulent chronic bronchitis; E78.5 Hyperlipidemia, unspecified; M51.360 Other intervertebral disc degeneration, lumbar region with discogenic back pain only; I25.10 Atherosclerotic heart disease of native coronary artery without angina pectoris; R35.89 Other polyuria; E03.9 Hypothyroidism, unspecified; Z79.890 Hormone replacement therapy; Z85.038 Personal history of other malignant neoplasm of large intestine; Z99.3 Dependence on wheelchair; Z87.891 Personal history of nicotine dependence; Z79.85 Long-term (current) use of injectable non-insulin antidiabetic drugs; Z79.891 Long term (current) use of opiate analgesic; Z79.899 Other long term (current) drug therapy; Z90.49 Acquired absence of other specified parts of digestive tract; Z91.81 History of falling; Z88.2 Allergy status to sulfonamides; Z88.5 Allergy status to narcotic agent; Z88.6 Allergy status to analgesic agent; Z79.02 Long term (current) use of antithrombotics/antiplatelets; Z93.3 Colostomy status
CPT/HCPCS: 36415; 70450; 72125; 80053; 81001; 83735; 83880; 84484; 85025; 87086; 87088; 87186; 93005; 93270; 93306; 99285; G0378; J0696; J3475; J7030

== ENCOUNTER 2024-08-24 14:19 | Outpatient (CLI) | payer MEDICARE, MEDICAID, SELFPAY ==
[2024-08-24 23:03] LABS: Albumin Level 3.3 g/dl (3.5-5.0); Chloride 105 mmol/L (98-107); Potassium 4.5 mmoL/L (3.5-5.1); Sodium 138 mmol/L (136-145)
[2024-08-24 23:06] LABS: Alanine Aminotransferase 18 U/L (12-78); Albumin/Globulin Ratio 1.2 (1.1-1.8); Alkaline Phosphatase 77 U/L (38-126); Anion Gap 9.5 mEq/L (5-15); Aspartate Amino Transferase 24 U/L (14-36); Bilirubin,Total 0.2 mg/dl (0.2-1.3); Blood Urea Nitrogen 8 mg/dl (7-17); Carbon Dioxide 28 mmol/L (22.0-30.0); Estimated Glomerular Filt Rate 72 ml/min (>60); GFR (African American) 87 ML/MIN (>60); Globulin 2.8 g/dL (1.3-3.2); Glucose 100 mg/dl (74-100); Magnesium 1.2 mg/dl (1.6-2.3); Total Protein,Serum 6.1 g/dl (6.3-8.2)
[2024-08-24 23:49] LABS: HIV Combo NEGATIVE (Negative)
[2024-08-24 23:52] LABS: Hepatitis C Ab Qual. W/ RFX NEGATIVE (Negative)
== END 2024-08-24 23:59 | disposition home or self-care (01) ==
LOC: LAB.DROPOF 08-27 09:26
PROVIDERS: PCP Family Medicine; Visit Provider Family Medicine
DX: E87.6 Hypokalemia (principal); E83.51 Hypocalcemia; E83.42 Hypomagnesemia; Z11.59 Encounter for screening for other viral diseases
CPT/HCPCS: 80053; 83735; 86803; 87389

== ENCOUNTER 2024-10-06 10:15 | Day surgery (SDC) | payer MEDICARE, MEDICAID, SELFPAY ==
[2024-10-06 10:32] VITALS: BP 117/66; PULSE 61; RESP 16; TEMP 36.8; O2SAT 98; BMI 24.9
--- NOTE | 2024-10-06 10:55 | EXP.PAIN.PRO ---
Procedure Date: 10/06/24 Time: 10:30 Anesthesiologist:: Wilian Griggs CRNA Complications:: None Pre-procedure Diagnosis:: Degenerative disc disease thoracic spine multiple levels. Thoracic radiculopathy. Post-procedure Diagnosis:: Same. Indications for Procedure:: Patient is a very pleasant 68-year-old female who comes our clinic today for repeat T10-11 epidural steroid injection. Patient reports significant improvement terms of her thoracic spine and thoracic radicular symptoms with previous injection. She rates her pain 7/10. Procedure Details:: Procedure:Thoracic epidural steroid injection under fluoroscopy Informed consent was obtained and the risks and benefits of the procedure were explained to the patient. The patient was taken to the procedure room and noninvasive monitors placed, including noninvasive blood pressure cuff and pulse oximeter. The back was viewed using C-Arm fluoroscopy and prepped using Betadine as a cleansing solution and the T10-11 interspace was palpated. Skin and subcutaneous tissues were anesthetized using lidocaine 1.5% and a 25-gauge needle. After this, an 18-gauge Touhy epidural needle was placed into the T10-11 interspace and advanced using fluoroscopic guidance and loss of resistance to air until the epidural space was encountered. After confirmation of needle placement in the epidural space, with dye, a solution containing lidocaine 1.5%, 4 mL and Depo-Medrol 80 mg were incrementally injected into the thoracic epidural space. The patient tolerated the procedure well with no complications. The patient was observed in the Pain Clinic and then discharged home neurologically intact. Plan and Disposition:: Patient was discharged without incident.
[2024-10-06 10:56] VITALS: BP 115/73; PULSE 62; RESP 16; O2SAT 99
[2024-10-06] MEDS: methylPREDNISolone ACETATE 80MG/ML VIAL 80 MG (11:32)
[2024-10-06 11:33] VITALS: BP 127/72; PULSE 62; RESP 18; O2SAT 95
[2024-10-06 11:39] VITALS: BP 127/72; PULSE 62; RESP 18; O2SAT 95
== END 2024-10-06 10:56 | disposition home or self-care (01) ==
PROVIDERS: PCP Family Medicine; Visit Provider Nurse Anesthetist, Certified Registered
DX: M51.14 Intervertebral disc disorders with radiculopathy, thoracic region (principal)
CPT/HCPCS: 62321; J1010

== ENCOUNTER 2024-11-01 22:27 | Emergency (ER) | payer MEDICARE, MEDICAID, SELFPAY ==
[2024-11-01 22:38] VITALS: BP 137/96; PULSE 82; RESP 18; TEMP 36.6; O2SAT 82; BMI 24.6
--- NOTE | 2024-11-01 23:17 | ED_ITS ---
Discharge Plan Disposition Patient Disposition: Home, Self-Care Chief Complaint: PAIN Prescriptions Prescriptions: No Action methenamine hippurate 1 gram tablet 1 g PO BID ergocalciferol (vitamin D2) 1,250 mcg (50,000 unit) capsule 1,250 mcg PO WEEKLY Qty: 5 1RF alendronate 70 mg tablet 70 mg PO WEEKLY Qty: 14 10RF Rx Instructions: TAKE ONE TABLET BY MOUTH EVERY WEEK bupropion HCl 75 mg tablet 150 mg PO 06,12 Qty: 120 2RF Rx Instructions: TAKE 2 TABLETS BY MOUTH IN THE MORNING AND 2 TABLETS AT NOON (TAKE 6 HOURS APART) albuterol sulfate 90 mcg/actuation HFA aerosol inhaler 2 puff inhalation QIDP PRN (Reason: sob) Qty: 8.5 10RF Rx Instructions: INHALE 2 PUFFS BY MOUTH FOUR TIMES A DAY NEEDED FOR SHORTNESS OF BREATH OR WHEEZING Bevespi Aerosphere 9-4.8 mcg HFA aerosol inhaler 2 puff inhalation BID 90 Days Qty: 10.7 3RF pantoprazole 40 mg tablet,delayed release (DR/EC) 40 mg PO BID Qty: 180 1RF Rx Instructions: TAKE ONE TABLET BY MOUTH TWICE A DAY FOR GERD levothyroxine 50 mcg tablet 50 mcg PO DAILY Qty: 90 1RF Rx Instructions: TAKE ONE TABLET BY MOUTH ONCE A DAY FOR THYROID trazodone 100 mg tablet 200 mg PO HS Qty: 30 2RF Rx Instructions: TAKE ONE-TWO TABLETS BY MOUTH AT BEDTIME gabapentin 100 mg capsule 100 mg PO BID Qty: 60 1RF rosuvastatin 20 mg tablet 20 mg PO HS Qty: 90 3RF Rx Instructions: TAKE ONE TABLET BY MOUTH ONCE A DAY oxycodone-acetaminophen [Percocet] 5-325 mg tablet 1 tab PO Q8H PRN (Reason: pain) Qty: 90 0RF ondansetron 4 mg tablet,disintegrating 4 mg PO Q8HP PRN (Reason: nausea/vomiting) multivitamin Tablet 1 tab PO DAILY fluticasone propionate 50 mcg/actuation Blister With Device 1 inh INHALATION BIDP PRN (Reason: allergies) tizanidine [Zanaflex] 4 mg tablet 4 mg PO TID PRN (Reason: muscle spasms) Qty: 90 2RF ropinirole 0.5 mg tablet 0.5 mg PO HS Qty: 30 2RF Rx Instructions: administer 1-3 hours before bedtime potassium chloride 20 mEq tablet,ER particles/crystals 20 meq PO DAILY cefdinir 300 mg capsule 300 mg PO BID Qty: 20 0RF Referrals Follow up/Referrals: Roman Medina MD [Primary Care Provider] - See instructions Activity Restrictions/Add. Instructions Additional Instructions/Restrictions: Call your surgeon tomorrow, 11/02 in order to discuss today's visit to the emergency department. Tell them what happened at home, that you came to the emergency department and britton had opened. Let them know that the bed of the wound had good granulation tissue, still intact. Unable to probe through the wound bed into the fascia with cotton-tipped applicator. To help provide support, silk stitches were placed across the wound to hold tension to prevent dehiscence of wound. Call your family doctor to establish care for this visit to the emergency department and schedule follow-up within 48 hours to ensure improvement. If you have any worsening of your condition or any other concerning signs or symptoms, return to the emergency department or your primary care doctor for further evaluation. Clinical Impressions Clinical Impression: Encounter for post surgical wound check Print Language Print Language: Lithuanian Discharge ED Provider: Anurag Ross General Adult HPI General Chief complaint: PAIN Stated complaint: Ostomy bag burst and in surgery site Time Seen by Provider: 11/01/24 22:37 Mode of Arrival: Wheelchair Source of Information: Patient Description of Symptoms (Recalled from ER Triage Doc. by RN): pt reports she has a possible incisional infection to her abdomen. pt reports that her colostomy had exploded and when attempting to clean the area they think it got into her post op insision. History of Present Illness HPI narrative: Please note that above description of symptoms, in this electronic medical record under categorization of recalled from ER triage doctor by RN are reflective of an initial nursing assessment, however, is not reflective of my full history and physical exam that was personally taken and clarified. Consequentially, this preceding description of symptoms, which may include the patient's categorized chief complaint in the EMR, do not reflect my personal clinical impression, and the ultimate description of history of present illness and patient stated complaints should be deferred to this section of the note. Unless stated otherwise or congruent with this section of the note, additional signs, symptoms, or incongruence should be interpreted as inaccurate with my clinical impression. Related Data Home Medications ?Medication ?Instructions ?Recorded ?Confirmed fluticasone propionate 50 1 inh inhalation BIDP PRN allergies 09/23/23 10/06/24 mcg/actuation blister powder for inhalation multivitamin 1 tab PO DAILY 09/23/23 10/06/24 ondansetron 4 mg disintegrating 4 mg PO Q8HP PRN nausea/vomiting 09/23/23 10/06/24 tablet methenamine hippurate 1 gram tablet 1 g PO BID 11/27/23 10/06/24 potassium chloride 20 mEq 20 meq PO DAILY 08/20/24 10/06/24 tablet,extended release(part/cryst) Previous Rx's ?Medication ?Instructions ?Recorded ropinirole 0.5 mg tablet 0.5 mg PO HS #30 tabs 06/15/24 tizanidine 4 mg tablet (Zanaflex) 4 mg PO TID PRN muscle spasms #90 06/15/24 tabs cefdinir 300 mg capsule 300 mg PO BID #20 caps 08/20/24 alendronate 70 mg tablet 70 mg PO WEEKLY OSTEOARTHRITIS #14 10/01/24 tabs bupropion HCl 75 mg tablet 150 mg (2 x 75 mg) PO #120 10/01/24 tabs ergocalciferol (vitamin D2) 1,250 1,250 mcg PO WEEKLY Supplement #5 10/01/24 mcg (50,000 unit) capsule caps albuterol sulfate 90 mcg/actuation 2 puff inhalation QIDP PRN sob 10/02/24 aerosol inhaler #8.5 grams glycopyrrolate 9 mcg-formoterol 2 puff inhalation BID 90 days 10/12/24 4.8 mcg HFA aerosol inhaler #10.7 grams (Bevespi Aerosphere) gabapentin 100 mg capsule 100 mg PO BID #60 caps 10/21/24 levothyroxine 50 mcg tablet 50 mcg PO DAILY #90 tabs 10/21/24 pantoprazole 40 mg tablet,delayed 40 mg PO BID #180 tabs 10/21/24 release trazodone 100 mg tablet 200 mg (2 x 100 mg) PO HS Insomnia 10/21/24 #30 tabs oxycodone-acetaminophen 5 mg-325 1 tab PO Q8H PRN pain #90 tabs 10/28/24 mg tablet (Percocet) rosuvastatin 20 mg tablet 20 mg PO HS Cholesterol #90 tabs 10/28/24 Allergies Allergy/AdvReac Type Severity Reaction Status Date / Time codeine Allergy Intermediate I-HIVES Verified 09/21/24 13:59 sulfamethoxazole (From Allergy Intermediate I-HIVES Verified 09/21/24 13:59 Septra) trimethoprim (From ) Allergy Intermediate I-HIVES Verified 09/21/24 13:59 ibuprofen (IBUPROFEN) Allergy Unknown VOMITING Verified 09/21/24 13:59 [facility] Disclaimer: The information contained in this section may have been updated after the patient was seen, as this information can be updated by other users. Medical History Hypocalcemia Hypomagnesemia Hypokalemia Fall Fracture of first metatarsal bone of left foot Fracture of left foot Blood pressure instability Pericardial effusion Urethritis YAJAIRA (acute kidney injury) Gastroenteritis Seasonal allergies Pulmonary embolism Chest pain Pleural effusion Hypotension UTI (urinary tract infection), bacterial Ileus, unspecified Urinary tract infection Acute urinary retention Hyperkalemia YAJAIRA (acute kidney injury) Acute abdomen Sepsis Altered mental status Almazan catheter problem Urine incontinence Cellulitis Diastolic dysfunction Encounter for pre-operative cardiovascular clearance Renal insufficiency Shoulder pain History of pulmonary embolism COPD mixed type Thrombosis Hemorrhoids Cataract Hypokalemia Claudication Pleural effusion, left Stopped smoking with greater than 30 pack year history Dyspnea on exertion Edema HHD (hypertensive heart disease) Elevated left ventricular end-diastolic pressure (LVEDP) CAD (coronary artery disease) Numbness Coronary artery calcification seen on CT scan COPD (chronic obstructive pulmonary disease) Tobacco abuse PRAKASH on CPAP SOB (shortness of breath) HTN (hypertension) Vitamin D deficiency (~11/21/17) Hyperlipidemia (~11/21/17) Surgical History History of carpal tunnel release History of cholecystectomy H/O: hysterectomy History of intestinal surgery Family History Other No significant family history Social History Smoking Status: Never smoker years smoked: 45 smoking status stop date: 2017 second hand exposure: Yes alcohol intake: never substance use type: marijuana current occupational status: other Travel in the last 8 weeks?: None household members: spouse housing: house current occupational exposures/hazards: No caffeine: No Have you lived/traveled outside [place] in past 30 days?: No Contact w/someone who lives/traveled outside [place] past 30 days?: No Exposure to someone with infectious disease in past 14 days?: No Do you have a fever (greater than 100.4 F or 38 C)?: No Have you tested positive for COVID-19?: No Exposed to someone with COVID-19 in past 14 days?: No Do you have a sore throat?: No Do you have a cough?: No Do you have any weakness?: No Do you have any diarrhea?: No Are you experiencing any unusual bleeding?: No Do you have any muscle aches/pain?: No Do you have any abdominal pain?: No Are you experiencing loss of taste or smell?: No Other Medical History Have you received the Flu Vaccine for this season: No Have you received the Pneumonia Vaccine: No ROS Obtained: Yes All systems reviewed & no additional complaints except as documented Physical Exam General General appearance: alert Head Head exam: atraumatic and normocephalic Eye Eye exam: Present normal appearance, PERRL and EOMI Neck Neck exam: Present normal inspection, full ROM and trachea midline Respiratory Respiratory exam: Absent respiratory distress, wheezes, stridor, accessory muscle use or prolonged expiratory phase Cardiovascular Cardiovascular exam: Present other (Pulses equal symmetric in upper and lower extremities) Abdominal Exam Abdominal exam: Present soft, tenderness and incision (Clean, dry, intact with britton overlying, but wound edge open. Not able to probe fascia deep in the wound bed.); Absent distention, guarding, rebound, rigidity or pulsatile mass Extremities Exam Extremities exam: Absent edema Neurological Exam Neurological exam: Present alert, oriented X3 and CN II-XII intact; Absent motor sensory deficit Skin Skin exam: Present warm and dry; Absent diaphoresis or erythema Medical Decision Making Medical Records Medical records reviewed: Yes I reviewed the patient's medical records. Screening: Per USPSTF and CDC recommendations, given the prevalence of disease in our [facility], it is our hospital?s policy to screen for HIV and viral Hepatitis for all patients aged 18 and over and those with ongoing risk factors. Joshua Inquiry Pt receiving controlled substance: No Joshua was queried for this patient: No Vital Signs: 05/11/25 22:38 Temperature 97.9 F Temperature Source Oral Pulse Rate [Right] 82 Respiratory Rate 18 Blood Pressure [Right Arm] 137/96 H Blood Pressure Mean [Right Arm] 109 02 Sat by Pulse Oximetry 82 L Orders (Tests/Meds): ED MEDICATIONS Discontinued Medications Generic Name Dose Route Start Last Admin Trade Name Kirsty PRN Reason Stop Dose Admin Lidocaine HCl 10 ml 11/01/24 22:50 Lidocaine 1% 10ml Mdv IJ 11/01/24 22:51 ONCE ONE Medical Decision Narrative: 69-year-old female presenting with concern for wound infection. She states that she recently at the end of September had laparotomy for scar tissue debulking at [facility]. Tonight, had trouble with her ostomy bag, ostomy bag leaked across her abdomen and she looked down and realized that the britton that popped open on her abdomen came in for further evaluation out of concern for potential infection. History obtained with patient and family. On arrival, very clinically well. On arrival, patient hemodynamically stable, alert, [oriented x4, ][appropriate, ]GCS [15], moving all extremities spontaneously, pupils equal and reactive to light. Full physical exam performed and significant for midline abdominal surgical incision is clean, dry, intact at the wound bed with granulation tissue on one wound edge, but skin on the other the wound edge. No drainage. Unable to probe through the wound bed into fascia with cotton-tipped applicator. Because patient's incision is intact other than superficial britton, I biggest concern is that patient may bend over, lift, do something that may cause tension across the abdominal wall and dehiscence of the rest of the incision. Because of this, 1% lidocaine was used in order to numb up the wound edges and 0 silk was used in simple interrupted fashion to pull tension across the wound. It was recommended that she follow-up with her surgeon tomorrow and let them know that she was here, likely needs follow-up. She voiced understanding. Mass Spectrometry Manager disclaimer Much of this encounter note is an electronic break and load operator spoken language to printed text. Electronic break and load operator of the spoken language may permit errors. Although I have reviewed the note, some errors may still exist. Procedures Laceration Laceration 1: Site: other (Abdominal wall) Size (cm): 6 Description: linear Depth: simple, single layer Local Anesthetic: lidocaine 1% Amount of anesthesia used (mL): 10 Pre-repair: wound explored, irrigated extensively and deep structures intact Skin layer closed with: other (Silk) Size (cm): other (0.0) Number of sutures: 5 Technique: simple, interrupted Critical Care Critical Care Time Critical Care Time: No
[2024-11-01] MEDS: LIDOCAINE 1% 10ML MDV 10 ML IJ (23:26)
[2024-11-01 23:43] VITALS: BP 138/76; PULSE 88; RESP 18; TEMP 36.7; O2SAT 100
== END 2024-11-01 23:44 | disposition home or self-care (01) ==
PROVIDERS: Emergency Provider Emergency Medicine; PCP Family Medicine
DX: S31.119A Laceration without foreign body of abdominal wall, unspecified quadrant without penetration into peritoneal cavity, initial encounter (principal); W26.8XXA Contact with other sharp object(s), not elsewhere classified, initial encounter; Z48.815 Encounter for surgical aftercare following surgery on the digestive system; Z93.3 Colostomy status
CPT/HCPCS: 12002; 99283; J2003

== ENCOUNTER 2024-11-04 13:17 | Outpatient (POV) | payer MEDICARE, MEDICAID, SELFPAY ==
--- NOTE | 2024-11-04 13:27 | A.OFFVIS_ITS ---
[facility] Disclaimer: The information contained in this section may have been updated after the patient was seen, as this information can be updated by other users. Medical History Hypocalcemia Hypomagnesemia Hypokalemia Fall Fracture of first metatarsal bone of left foot Fracture of left foot Blood pressure instability Pericardial effusion Urethritis YAJAIRA (acute kidney injury) Gastroenteritis Seasonal allergies Pulmonary embolism Chest pain Pleural effusion Hypotension UTI (urinary tract infection), bacterial Ileus, unspecified Urinary tract infection Acute urinary retention Hyperkalemia YAJAIRA (acute kidney injury) Acute abdomen Sepsis Altered mental status Almazan catheter problem Urine incontinence Cellulitis Diastolic dysfunction Encounter for pre-operative cardiovascular clearance Renal insufficiency Shoulder pain History of pulmonary embolism COPD mixed type Thrombosis Hemorrhoids Cataract Hypokalemia Claudication Pleural effusion, left Stopped smoking with greater than 30 pack year history Dyspnea on exertion Edema HHD (hypertensive heart disease) Elevated left ventricular end-diastolic pressure (LVEDP) CAD (coronary artery disease) Numbness Coronary artery calcification seen on CT scan COPD (chronic obstructive pulmonary disease) Tobacco abuse PRAKASH on CPAP SOB (shortness of breath) HTN (hypertension) Vitamin D deficiency (~11/21/17) Hyperlipidemia (~11/21/17) Surgical History History of carpal tunnel release History of cholecystectomy H/O: hysterectomy History of intestinal surgery Family History Other No significant family history Social History Smoking Status: Never smoker years smoked: 45 smoking status stop date: 2017 second hand exposure: Yes alcohol intake: never substance use type: marijuana current occupational status: other Travel in the last 8 weeks?: None household members: spouse housing: house current occupational exposures/hazards: No caffeine: No PM Subjective & Objective Subjective Subjective:: Patient is a pleasant 69-year-old female who presents today for follow-up of thoracic epidural T10-T11 on 10/06/2024. Today she rates her pain a 1 or 2 in this area has not ever does right her overall low back pain an 8 out of 10. Patient states that she did have about 80 to 85% improvement following this injection and feels like it is still helping. Patient does state the low back and hip pain is interfering with her ability perform activities of daily living such as cooking and cleaning. Patient is interested in additional injection therapy for this pain. She does state that it is still very present with prolonged positioning such as sitting or standing and that she frequently has to change positions due to the worsening pain. Patient does have a longstanding history of sacroiliitis with good relief with SI injections. Patient is interested in proceeding forward with this options. Patient does also make mention that she was recently in the ER due to having her abdominal surgery and a couple of britton coming out causing the wound to open up. Patient states that it is doing better now and that that she is scheduled to have her britton removed tomorrow. Her Joshua has been reviewed and is appropriate. Review of Systems: General: No recent weight changes, no fever, no sleep disturbances Respiratory: No cough, no shortness of air, no recurring pulmonary infections Cardiovascular/peripheral vascular: No chest pain, no palpitations, no edema, no shortness of breath Gastrointestinal: No new onset incontinence, normal bowel movements reported Genitourinary: No new onset incontinence Musculoskeletal: Low back pain, hip pain Psychiatric: [Normal mood/affect] Neurological: [Denies weakness in extremities], [denies balance issues] Pain at rest (0-10 scale): 8 Objective Objective:: Physical Exam: General: Alert and oriented x3, no acute distress, pleasant and cooperative Lungs: Respirations even and unlabored, symmetrical chest expansion Eyes: PERRL Musculoskeletal: Flexion and extension of lumbar [spine] somewhat guarded secondary to pain, [antalgic gait noted] point tenderness along bilateral SIs with positive bilateral Marquis's, Niyah's, Gaenslen's, compression and distraction exam Neurological: Speech clear, no gross sensory deficit Has patient had previous pain injection?: Yes Percent improvement in pain since last injection: 80 to 85% Conservative treatment options previously tried: Home exercise plan Length of treatment: Longer than 12 weeks Meds Home Medications and Allergies Home Medications ?Medication ?Instructions ?Recorded ?Confirmed ?Type fluticasone propionate 50 1 inh inhalation BIDP PRN allergies 09/23/23 11/04/24 History mcg/actuation blister powder for inhalation multivitamin 1 tab PO DAILY 09/23/23 11/04/24 History ondansetron 4 mg disintegrating 4 mg PO Q8HP PRN nausea/vomiting 09/23/23 11/04/24 History tablet methenamine hippurate 1 gram tablet 1 g PO BID 11/27/23 11/04/24 History ropinirole 0.5 mg tablet 0.5 mg PO HS #30 tabs 06/15/24 11/04/24 Rx tizanidine 4 mg tablet (Zanaflex) 4 mg PO TID PRN muscle spasms #90 06/15/24 11/04/24 Rx tabs cefdinir 300 mg capsule 300 mg PO BID #20 caps 08/20/24 11/04/24 Rx potassium chloride 20 mEq 20 meq PO DAILY 08/20/24 11/04/24 History tablet,extended release(part/cryst) alendronate 70 mg tablet 70 mg PO WEEKLY OSTEOARTHRITIS #14 10/01/24 11/04/24 Rx tabs bupropion HCl 75 mg tablet 150 mg (2 x 75 mg) PO #120 10/01/24 11/04/24 Rx tabs ergocalciferol (vitamin D2) 1,250 1,250 mcg PO WEEKLY Supplement #5 10/01/24 11/04/24 Rx mcg (50,000 unit) capsule caps albuterol sulfate 90 mcg/actuation 2 puff inhalation QIDP PRN sob 10/02/24 11/04/24 Rx aerosol inhaler #8.5 grams glycopyrrolate 9 mcg-formoterol 2 puff inhalation BID 90 days 10/12/24 11/04/24 Rx 4.8 mcg HFA aerosol inhaler #10.7 grams (Bevespi Aerosphere) gabapentin 100 mg capsule 100 mg PO BID #60 caps 10/21/24 11/04/24 Rx levothyroxine 50 mcg tablet 50 mcg PO DAILY #90 tabs 10/21/24 11/04/24 Rx pantoprazole 40 mg tablet,delayed 40 mg PO BID #180 tabs 10/21/24 11/04/24 Rx release trazodone 100 mg tablet 200 mg (2 x 100 mg) PO HS Insomnia 10/21/24 11/04/24 Rx #30 tabs oxycodone-acetaminophen 5 mg-325 1 tab PO Q8H PRN pain #90 tabs 10/28/24 11/04/24 Rx mg tablet (Percocet) rosuvastatin 20 mg tablet 20 mg PO HS Cholesterol #90 tabs 10/28/24 11/04/24 Rx New Prescriptions to Start Prescriptions: Allergies Allergy/AdvReac Type Severity Reaction Status Date / Time codeine Allergy Intermediate I-HIVES Verified 09/21/24 13:59 sulfamethoxazole (From Allergy Intermediate I-HIVES Verified 09/21/24 13:59 Septra) trimethoprim (From ) Allergy Intermediate I-HIVES Verified 09/21/24 13:59 ibuprofen (IBUPROFEN) Allergy Unknown VOMITING Verified 09/21/24 13:59 Assessment and Plan *Assessment and plan (1) Bilateral hip pain: Status: Acute Category: Medical Code(s): M25.551 - Pain in right hip; M25.552 - Pain in left hip (2) Sacroiliitis: Status: Acute Category: Medical Code(s): M46.1 - Sacroiliitis, not elsewhere classified Plan Patient is experiencing worsening pain along the low back and bilateral hips. They did have limited range of motion of the lumbar spine along with point tenderness along bilateral SI joints and a positive bilateral Marquis's, Niyah's, Gaenslen's, compression and distraction exam. I did discuss with the patient that I do believe they would benefit from bilateral SI injections. Risk and benefits were discussed with the patient and they would like to proceed forward with this option. Patient has tried and failed conservative therapy including continued at home stretching exercise for longer than 12 weeks. Patient's last SI injection was back in July with 90% relief and she did state that it did significantly help up until her fall. Patient is not currently a SI fusion candidate due to severe heart and COPD comorbidities. This will be a t herapeutic injection with less than 1 mL solution to be injected. Patient will be scheduled for bilateral SI injections under fluoroscopy. Patient has been instructed to contact the clinic with any concerns before the next appointment. Dr. Brown has reviewed this note and agrees with this plan of care. This note was dictated using voice recognition software and make contain errors or omissions. All injections are used with Lidocaine or Bupivacaine and dexamethasone.
[2024-11-04 13:35] VITALS: BP 95/73; PULSE 91; RESP 14; O2SAT 96; BMI 24.7
== END 2024-11-04 23:59 | disposition home or self-care (01) ==
LOC: SC.PAIN 13:18
PROVIDERS: PCP Family Medicine; Visit Provider Nurse Practitioner Family
DX: M25.551 Pain in right hip (principal); M25.552 Pain in left hip; M46.1 Sacroiliitis, not elsewhere classified; Z73.89 Other problems related to life management difficulty; Z79.899 Other long term (current) drug therapy
CPT/HCPCS: 99212; G0463

== ENCOUNTER 2024-11-18 18:24 | Observation (INO) | payer MEDICARE, MEDICAID, SELFPAY ==
[2024-11-18] VITALS (8 sets, daily range): BP systolic 120–170; BP diastolic 60–108; PULSE 54–94; RESP 15–21; TEMP 36.5–36.8; O2SAT 92–100; BMI 23.9; BMI 23.7
--- NOTE | 2024-11-18 18:24 | HMH.EDGENADL ---
Discharge Plan Disposition Patient Disposition: Admitted Condition: Fair Clinical Impressions Clinical Impression: Hypomagnesemia Discharge ED Provider: Meaghan Cai General Adult HPI <GABE Orr - Last Filed: 11/18/24 23:03> General Chief complaint: Nausea/Vomiting/Diarrhea Stated complaint: N/V Time Seen by Provider: 11/18/24 18:35 History of Present Illness HPI narrative: Patient presents via EMS for intractable nausea vomiting abdominal pain and left lower extremity pain. Patient states that she had abrupt onset of vomiting since 9 this morning. She has not been able to tolerate any oral intake. Patient does have a history of a total colectomy with ostomy and most recently had a reoperation at the [facility] for presumed bowel obstruction although I do not have her records currently. Patient states that she has not had any ostomy output or passing flatus through her ostomy today. She states that she has left-sided abdominal pain but denies fever chills hemoptysis hematochezia melena nausea vomiting diarrhea. Patient states that her left lower extremity started cramping this afternoon severely. She states it feels similar to when she had a blood clot before. Currently she denies chest pain shortness of breath fever chills hemoptysis hematochezia melena hematemesis hematuria. Related Data Home Medications ?Medication ?Instructions ?Recorded ?Confirmed multivitamin 1 tab PO DAILY 09/23/23 11/13/24 ondansetron 4 mg disintegrating 4 mg PO Q8HP PRN nausea/vomiting 09/23/23 11/13/24 tablet methenamine hippurate 1 gram tablet 1 g PO BID 11/27/23 11/13/24 potassium chloride 20 mEq 20 meq PO DAILY 08/20/24 11/13/24 tablet,extended release(part/cryst) Previous Rx's ?Medication ?Instructions ?Recorded ropinirole 0.5 mg tablet 0.5 mg PO HS #30 tabs 06/15/24 tizanidine 4 mg tablet (Zanaflex) 4 mg PO TID PRN muscle spasms #90 06/15/24 tabs alendronate 70 mg tablet 70 mg PO WEEKLY OSTEOARTHRITIS #14 10/01/24 tabs bupropion HCl 75 mg tablet 150 mg (2 x 75 mg) PO #120 10/01/24 tabs albuterol sulfate 90 mcg/actuation 2 puff inhalation QIDP PRN sob 10/02/24 aerosol inhaler #8.5 grams glycopyrrolate 9 mcg-formoterol 2 puff inhalation BID 90 days 10/12/24 4.8 mcg HFA aerosol inhaler #10.7 grams (Bevespi Aerosphere) gabapentin 100 mg capsule 100 mg PO BID #60 caps 10/21/24 levothyroxine 50 mcg tablet 50 mcg PO DAILY #90 tabs 10/21/24 pantoprazole 40 mg tablet,delayed 40 mg PO BID #180 tabs 10/21/24 release trazodone 100 mg tablet 200 mg (2 x 100 mg) PO HS Insomnia 10/21/24 #30 tabs rosuvastatin 20 mg tablet 20 mg PO HS Cholesterol #90 tabs 10/28/24 oxycodone-acetaminophen 5 mg-325 1 tab PO Q8H PRN pain #90 tabs 11/13/24 mg tablet (Percocet) ergocalciferol (vitamin D2) 1,250 1,250 mcg PO WEEKLY Supplement #5 11/17/24 mcg (50,000 unit) capsule caps Allergies Allergy/AdvReac Type Severity Reaction Status Date / Time codeine Allergy Intermediate I-HIVES Verified 11/13/24 11:25 sulfamethoxazole (From Allergy Intermediate I-HIVES Verified 11/13/24 11:25 Sept) trimethoprim (From ) Allergy Intermediate I-HIVES Verified 11/13/24 11:25 ibuprofen (IBUPROFEN) Allergy Unknown VOMITING Verified 11/13/24 11:25 [facility] <GABE Orr - Last Filed: 11/18/24 23:03> [facility] Disclaimer: The information contained in this section may have been updated after the patient was seen, as this information can be updated by other users. Medical History Hypocalcemia Hypomagnesemia Hypokalemia Fall Fracture of first metatarsal bone of left foot Fracture of left foot Blood pressure instability Pericardial effusion Urethritis YAJAIRA (acute kidney injury) Gastroenteritis Seasonal allergies Pulmonary embolism Chest pain Pleural effusion Hypotension UTI (urinary tract infection), bacterial Ileus, unspecified Urinary tract infection Acute urinary retention Hyperkalemia YAJAIRA (acute kidney injury) Acute abdomen Sepsis Altered mental status Almazan catheter problem Urine incontinence Cellulitis Diastolic dysfunction Encounter for pre-operative cardiovascular clearance Renal insufficiency Shoulder pain History of pulmonary embolism COPD mixed type Thrombosis Hemorrhoids Cataract Hypokalemia Claudication Pleural effusion, left Stopped smoking with greater than 30 pack year history Dyspnea on exertion Edema HHD (hypertensive heart disease) Elevated left ventricular end-diastolic pressure (LVEDP) CAD (coronary artery disease) Numbness Coronary artery calcification seen on CT scan COPD (chronic obstructive pulmonary disease) Tobacco abuse PRAKASH on CPAP SOB (shortness of breath) HTN (hypertension) Vitamin D deficiency (~11/21/17) Hyperlipidemia (~11/21/17) Surgical History History of carpal tunnel release History of cholecystectomy H/O: hysterectomy History of intestinal surgery Family History Other No significant family history Social History (Updated 11/18/24 @ 23:17 by Sophie Munoz RN) Smoking Status: Never smoker years smoked: 45 smoking status stop date: 2017 second hand exposure: Yes alcohol intake: never substance use type: marijuana current occupational status: other Travel in the last 8 weeks?: None household members: spouse housing: house current occupational exposures/hazards: No caffeine: No Have you lived/traveled outside [place] in past 30 days?: No Contact w/someone who lives/traveled outside US past 30 days?: No Exposure to someone with infectious disease in past 14 days?: No Do you have a fever (greater than 100.4 F or 38 C)?: No Have you tested positive for COVID-19?: No Exposed to someone with COVID-19 in past 14 days?: No Do you have a sore throat?: No Do you have a cough?: No Do you have any weakness?: No Are you experiencing any nausea/vomitting?: No Do you have any diarrhea?: No Are you experiencing any unusual bleeding?: No Do you have any muscle aches/pain?: No Do you have any abdominal pain?: No Are you experiencing loss of taste or smell?: No Other Medical History Have you received the Flu Vaccine for this season: Yes Have you received the Pneumonia Vaccine: Yes <GABE Orr - Last Filed: 11/18/24 23:03> ROS Obtained: Yes Systems reviewed as appropriate & no additional complaints except as documented Physical Exam <GABE Orr - Last Filed: 11/18/24 23:03> General General appearance: alert Respiratory Respiratory exam: Present normal lung sounds bilaterally Cardiovascular Cardiovascular exam: Present regular rate Neurological Exam Neurological exam: Present alert and oriented X3 Medical Decision Making <GABE Orr - Last Filed: 11/18/24 23:03> Medical Records Medical records reviewed: Yes I reviewed the patient's medical records. Screening: Per USPSTF and CDC recommendations, given the prevalence of disease in our region, it is our hospital?s policy to screen for HIV and viral Hepatitis for all patients aged 18 and over and those with ongoing risk factors. Joshua Inquiry Pt receiving controlled substance: No Vital Signs: 11/18/24 18:17 11/18/24 19:43 11/18/24 20:30 Temperature 97.7 F Temperature Source Oral Pulse Rate 72 68 Pulse Rate [Right Radial] 94 H Respiratory Rate 18 16 16 Blood Pressure 170/102 H 163/94 H Blood Pressure [Right Arm] 166/108 H Blood Pressure Mean 124 120 Blood Pressure Mean [Right Arm] 127 Blood Pressure Source Blood Pressure Source [Right Arm] Automatic Cuff Blood Pressure Position 02 Sat by Pulse Oximetry 98 97 100 Oxygen Delivery Method Room Air 11/18/24 21:00 11/18/24 21:26 11/18/24 21:31 Temperature Temperature Source Pulse Rate 80 54 L 74 Pulse Rate [Right Radial] Respiratory Rate 15 16 15 Blood Pressure 154/88 H 134/63 124/63 Blood Pressure [Right Arm] Blood Pressure Mean 110 105 83 Blood Pressure Mean [Right Arm] Blood Pressure Source Blood Pressure Source [Right Arm] Blood Pressure Position 02 Sat by Pulse Oximetry 95 92 L 92 L Oxygen Delivery Method 11/18/24 23:02 Temperature 98.0 F Temperature Source Oral Pulse Rate 74 Pulse Rate [Right Radial] Respiratory Rate 20 Blood Pressure 120/60 Blood Pressure [Right Arm] Blood Pressure Mean Blood Pressure Mean [Right Arm] Blood Pressure Source Automatic Cuff Blood Pressure Source [Right Arm] Blood Pressure Position Supine 02 Sat by Pulse Oximetry Oxygen Delivery Method Room Air Lab Data Lab results reviewed: Yes I reviewed the patient's lab results. Lab Results 11/18/24 16:44: Total Creatine Kinase 65 11/18/24 18:44: Sodium 142, Potassium 3.9, Chloride 108 H, Carbon Dioxide 20 L, Anion Gap 17.9 H, BUN 15, Creatinine 0.90, Estimated Creat Clear 53, Estimated GFR 62, Est GFR ( Amer) 76, Glucose 146 H, Calcium 7.2 L, Magnesium < 0.2 L, Total Bilirubin 0.8, AST 41 H, ALT 24, Alkaline Phosphatase 65, Total Protein 8.6 H D, Albumin 4.1, Globulin 4.5 H, Albumin/Globulin Ratio 0.9 L, Lipase 64, Procalcitonin 0.052 11/18/24 19:45: WBC 6.3, RBC 4.40, Hgb 11.6 L, Hct 35.6 L, MCV 80.9 L, MCH 26.4 L, MCHC 32.6, RDW 15.8, Plt Count 181, MPV 10.1, Neut % (Auto) 80.5 H, Lymph % (Auto) 11.8, [place] % (Auto) 6.0, Eos % (Auto) 0.3, Baso % (Auto) 0.6, Neut # (Auto) 5.1, Lymph # (Auto) 0.8, [place] # (Auto) 0.4, Eos # (Auto) 0.0, Baso # (Auto) 0.0, Lactate 1.6 11/18/24 19:45 11/18/24 18:44 Orders (Tests/Meds): ED MEDICATIONS Generic Name Dose Route Start Last Admin Trade Name Freq PRN Reason Stop Dose Admin Acetaminophen 650 mg 11/18/24 22:16 Acetaminophen 325mg Tab PO 12/18/24 22:15 Q4HP PRN Fever or Mild Pain (1-3) Hydrocodone Bitart/Acetaminophen 1 tab 11/18/24 22:16 Hydrocodone/Apap 5/325 Mg Tablet PO 12/18/24 22:15 Q4HP PRN Mild to Moderate Pain (1-6) Enoxaparin Sodium 60 mg 11/18/24 22:15 Enoxaparin 100mg/Ml Syringe 1 mg/kg (60 mg) 12/18/24 22:14 SUBCUT Q12H JOMAR Hydromorphone HCl 1 mg 11/18/24 22:16 Hydromorphone 2mg/Ml Syringe IV 12/18/24 22:15 Q4HP PRN Severe Pain (7-10) Ondansetron HCl 4 mg 11/18/24 22:16 Ondansetron 4mg/2ml Vial IV 12/18/24 22:15 Q8HP PRN Nausea Pantoprazole Sodium 40 mg 11/19/24 21:00 Pantoprazole 40mg Tablet PO 12/19/24 20:59 HS JOMAR Discontinued Medications Generic Name Dose Route Start Last Admin Trade Name Freq PRN Reason Stop Dose Admin Hydromorphone HCl 2 mg 11/18/24 20:20 11/18/24 20:26 Hydromorphone 2mg/Ml Syringe IV 11/18/24 20:21 2 mg ONCE ONE Administration Sodium Chloride 1,000 mls @ 999 mls/hr 11/18/24 18:31 11/18/24 19:54 Sod Chlor 0.9% 1000ml Bag IV 11/18/24 19:31 999 mls/hr .Q1H1M ONE Administration Magnesium Sulfate 2 gm in 50 mls @ 50 mls/hr 11/18/24 19:30 11/18/24 20:24 Magnesium Sulfate 2gm/50ml Premix IV 11/18/24 20:29 50 mls/hr ONCE ONE Administration Calcium Gluconate/Sodium Chloride 2 gm in 100 mls @ 50 mls/hr 11/18/24 19:31 11/18/24 20:24 Calcium Gluconate 2,000mg/100ml Nacl Premix IV 11/18/24 21:30 50 mls/hr ONCE ONE Administration Iopamidol 180 ml 11/18/24 21:22 11/18/24 21:23 Iopamidol-370 (76%);100ml Bottle IV 11/18/24 21:23 180 ml ONCE ONE Administration Promethazine HCl 25 mg 11/18/24 19:33 11/18/24 19:48 Promethazine Hcl 25mg/Ml 1ml Vial IM 11/18/24 19:34 25 mg ONCE ONE Administration Sodium Chloride 25 ml 11/18/24 18:31 11/18/24 23:21 Sodium Chloride 0.9% 25ml Bag IV 11/18/24 18:32 Not Given ONCE ONE Sodium Chloride 25 ml 11/18/24 19:33 11/18/24 23:22 Sodium Chloride 0.9% 25ml Bag IV 11/18/24 19:34 Not Given ONCE ONE Sodium Chloride 50 ml 11/18/24 21:22 11/18/24 21:23 0.9 % Sodium Chloride 50 Ml Vial IV 11/18/24 21:23 50 ml ONCE ONE Administration Sodium Chloride 10 ml 11/18/24 21:22 11/18/24 21:23 Sodium Chloride 0.9% 10ml Syr (Rad Only) IV 11/18/24 21:23 10 ml ONCE ONE Administration ORDERS Category Date Time Status CT angio abdomen/femoral Stat Cat Scan 11/18/24 20:[address] angio chest PE protocol Stat Cat Scan 11/18/24 20:18 Completed CBC w/Auto Diff [Complete Blood Count Auto Diff] Stat Lab 11/18/24 19:45 Completed CK [Creatine Kinase] Stat Lab 11/18/24 16:44 Completed CMP [Comprehensive Metabolic Panel] Stat Lab 11/18/24 18:44 Completed Complete Blood Count Auto Diff AMLAB Lab 11/19/24 06:00 Ordered Comprehensive Metabolic Panel AMLAB Lab 11/19/24 06:00 Ordered Lactic Acid Routine Lab 11/18/24 22:40 Completed Lactic Acid Stat Lab 11/18/24 19:45 Completed Lipase Stat Lab 11/18/24 18:44 Completed Magnesium AMLAB Lab 11/19/24 06:00 Ordered Magnesium Stat Lab 11/18/24 18:44 Completed Phosphorous AMLAB Lab 11/19/24 06:00 Ordered Procalcitonin Stat Lab 11/18/24 18:44 Completed Medical Decision Narrative: In summary patient is a 69-year-old female who presents to the emergency department for evaluation of intractable nausea vomiting abdominal pain and left lower extremity pain. Patient is initially hypertensive with a blood pressure 166/108 heart rate 94 with normal sinus rhythm on the bedside monitor breathing 18 times a minute satting at 98% on room air upon arrival, afebrile at 97.7. Physical exam is remarkable for an unwell appearing but well-nourished well-developed 69-year-old female who is actively retching. She is having dry heaves with no visible emesis currently. Abdomen is soft but diffusely tender to palpation and more focally so on the left side. Stoma is pink with no output in the bag. Patient still has surgical dressings on from her recent operation. Bowel sounds normal active. Breath sounds clear and equal bilaterally to the bases without adventitious sounds. Patient moves all 4 extremities and is neurovascular intact distally and her bilateral lower extremities with palpable DP and PT pulses. Skin is warm cap refills less than 2 seconds. Differential diagnosis includes dumping syndrome versus gastroenteritis versus bowel obstruction versus bowel perforation versus aortic dissection etc. Initial workup will be conducted with hematologic labs CT scan chest abdomen pelvis. Initial interventions include crystalloid bolus and Zofran. 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 Patient also has a chronic appearing pulmonary embolus in the right central pulmonary artery. No evidence of vascular strain identified. I have ordered initiation of electrolyte repletion with magnesium and calcium IV. Upon repeat evaluation patient still intolerant of oral intake after multiple doses of medications. Given this I had interactive discussion with hospital medicine regarding patient presentation KENNEDY and management and she will be admitted for further evaluation and care. <Meaghan Cai, DO - Last Filed: 11/18/24 23:26> Vital Signs: 11/18/24 18:17 11/18/24 19:43 11/18/24 20:30 Temperature 97.7 F Temperature Source Oral Pulse Rate 72 68 Pulse Rate [Right Radial] 94 H Respiratory Rate 18 16 16 Blood Pressure 170/102 H 163/94 H Blood Pressure [Right Arm] 166/108 H Blood Pressure Mean 124 120 Blood Pressure Mean [Right Arm] 127 Blood Pressure Source Blood Pressure Source [Right Arm] Automatic Cuff Blood Pressure Position 02 Sat by Pulse Oximetry 98 97 100 Oxygen Delivery Method Room Air 11/18/24 21:00 11/18/24 21:26 11/18/24 21:31 Temperature Temperature Source Pulse Rate 80 54 L 74 Pulse Rate [Right Radial] Respiratory Rate 15 16 15 Blood Pressure 154/88 H 134/63 124/63 Blood Pressure [Right Arm] Blood Pressure Mean 110 105 83 Blood Pressure Mean [Right Arm] Blood Pressure Source Blood Pressure Source [Right Arm] Blood Pressure Position 02 Sat by Pulse Oximetry 95 92 L 92 L Oxygen Delivery Method 11/18/24 23:02 Temperature 98.0 F Temperature Source Oral Pulse Rate 74 Pulse Rate [Right Radial] Respiratory Rate 20 Blood Pressure 120/60 Blood Pressure [Right Arm] Blood Pressure Mean Blood Pressure Mean [Right Arm] Blood Pressure Source Automatic Cuff Blood Pressure Source [Right Arm] Blood Pressure Position Supine 02 Sat by Pulse Oximetry Oxygen Delivery Method Room Air Lab Data Lab Results 11/18/24 16:44: Total Creatine Kinase 65 11/18/24 18:44: Sodium 142, Potassium 3.9, Chloride 108 H, Carbon Dioxide 20 L, Anion Gap 17.9 H, BUN 15, Creatinine 0.90, Estimated Creat Clear 53, Estimated GFR 62, Est GFR ( Amer) 76, Glucose 146 H, Calcium 7.2 L, Magnesium < 0.2 L, Total Bilirubin 0.8, AST 41 H, ALT 24, Alkaline Phosphatase 65, Total Protein 8.6 H D, Albumin 4.1, Globulin 4.5 H, Albumin/Globulin Ratio 0.9 L, Lipase 64, Procalcitonin 0.052 11/18/24 19:45: WBC 6.3, RBC 4.40, Hgb 11.6 L, Hct 35.6 L, MCV 80.9 L, MCH 26.4 L, MCHC 32.6, RDW 15.8, Plt Count 181, MPV 10.1, Neut % (Auto) 80.5 H, Lymph % (Auto) 11.8, [place] % (Auto) 6.0, Eos % (Auto) 0.3, Baso % (Auto) 0.6, Neut # (Auto) 5.1, Lymph # (Auto) 0.8, [place] # (Auto) 0.4, Eos # (Auto) 0.0, Baso # (Auto) 0.0, Lactate 1.6 Orders (Tests/Meds): ED MEDICATIONS Generic Name Dose Route Start Last Admin Trade Name Freq PRN Reason Stop Dose Admin Acetaminophen 650 mg 11/18/24 22:16 Acetaminophen 325mg Tab PO 12/18/24 22:15 Q4HP PRN Fever or Mild Pain (1-3) Hydrocodone Bitart/Acetaminophen 1 tab 11/18/24 22:16 Hydrocodone/Apap 5/325 Mg Tablet PO 12/18/24 22:15 Q4HP PRN Mild to Moderate Pain (1-6) Enoxaparin Sodium 60 mg 11/18/24 22:15 Enoxaparin 100mg/Ml Syringe 1 mg/kg (60 mg) 12/18/24 22:14 SUBCUT Q12H JOMAR Hydromorphone HCl 1 mg 11/18/24 22:16 Hydromorphone 2mg/Ml Syringe IV 12/18/24 22:15 Q4HP PRN Severe Pain (7-10) Ondansetron HCl 4 mg 11/18/24 22:16 Ondansetron 4mg/2ml Vial IV 12/18/24 22:15 Q8HP PRN Nausea Pantoprazole Sodium 40 mg 11/19/24 21:00 Pantoprazole 40mg Tablet PO 12/19/24 20:59 HS JOMAR Discontinued Medications Generic Name Dose Route Start Last Admin Trade Name Freq PRN Reason Stop Dose Admin Hydromorphone HCl 2 mg 11/18/24 20:20 11/18/24 20:26 Hydromorphone 2mg/Ml Syringe IV 11/18/24 20:21 2 mg ONCE ONE Administration Sodium Chloride 1,000 mls @ 999 mls/hr 11/18/24 18:31 11/18/24 19:54 Sod Chlor 0.9% 1000ml Bag IV 11/18/24 19:31 999 mls/hr .Q1H1M ONE Administration Magnesium Sulfate 2 gm in 50 mls @ 50 mls/hr 11/18/24 19:30 11/18/24 20:24 Magnesium Sulfate 2gm/50ml Premix IV 11/18/24 20:29 50 mls/hr ONCE ONE Administration Calcium Gluconate/Sodium Chloride 2 gm in 100 mls @ 50 mls/hr 11/18/24 19:31 11/18/24 20:24 Calcium Gluconate 2,000mg/100ml Nacl Premix IV 11/18/24 21:30 50 mls/hr ONCE ONE Administration Iopamidol 180 ml 11/18/24 21:22 11/18/24 21:23 Iopamidol-370 (76%);100ml Bottle IV 11/18/24 21:23 180 ml ONCE ONE Administration Promethazine HCl 25 mg 11/18/24 19:33 11/18/24 19:48 Promethazine Hcl 25mg/Ml 1ml Vial IM 11/18/24 19:34 25 mg ONCE ONE Administration Sodium Chloride 25 ml 11/18/24 18:31 11/18/24 23:21 Sodium Chloride 0.9% 25ml Bag IV 11/18/24 18:32 Not Given ONCE ONE Sodium Chloride 25 ml 11/18/24 19:33 11/18/24 23:22 Sodium Chloride 0.9% 25ml Bag IV 11/18/24 19:34 Not Given ONCE ONE Sodium Chloride 50 ml 11/18/24 21:22 11/18/24 21:23 0.9 % Sodium Chloride 50 Ml Vial IV 11/18/24 21:23 50 ml ONCE ONE Administration Sodium Chloride 10 ml 11/18/24 21:22 11/18/24 21:23 Sodium Chloride 0.9% 10ml Syr (Rad Only) IV 11/18/24 21:23 10 ml ONCE ONE Administration ORDERS Category Date Time Status CT angio abdomen/femoral Stat Cat Scan 11/18/24 20:[address] angio chest PE protocol Stat Cat Scan 11/18/24 20:18 Completed CBC w/Auto Diff [Complete Blood Count Auto Diff] Stat Lab 11/18/24 19:45 Completed CK [Creatine Kinase] Stat Lab 11/18/24 16:44 Completed CMP [Comprehensive Metabolic Panel] Stat Lab 11/18/24 18:44 Completed Complete Blood Count Auto Diff AMLAB Lab 11/19/24 06:00 Ordered Comprehensive Metabolic Panel AMLAB Lab 11/19/24 06:00 Ordered Lactic Acid Routine Lab 11/18/24 22:40 Completed Lactic Acid Stat Lab 11/18/24 19:45 Completed Lipase Stat Lab 11/18/24 18:44 Completed Magnesium AMLAB Lab 11/19/24 06:00 Ordered Magnesium Stat Lab 11/18/24 18:44 Completed Phosphorous AMLAB Lab 11/19/24 06:00 Ordered Procalcitonin Stat Lab 11/18/24 18:44 Completed Medical Decision Narrative: In summary patient is a 69-year-old female who presents to the emergency department for evaluation of intractable nausea vomiting abdominal pain and left lower extremity pain. Patient is initially hypertensive with a blood pressure 166/108 heart rate 94 with normal sinus rhythm on the bedside monitor breathing 18 times a minute satting at 98% on room air upon arrival, afebrile at 97.7. Physical exam is remarkable for an unwell appearing but well-nourished well-developed 69-year-old female who is actively retching. She is having dry heaves with no visible emesis currently. Abdomen is soft but diffusely tender to palpation and more focally so on the left side. Stoma is pink with no output in the bag. Patient still has surgical dressings on from her recent operation. Bowel sounds normal active. Breath sounds clear and equal bilaterally to the bases without adventitious sounds. Patient moves all 4 extremities and is neurovascular intact distally and her bilateral lower extremities with palpable DP and PT pulses. Skin is warm cap refills less than 2 seconds. Differential diagnosis includes dumping syndrome versus gastroenteritis versus bowel obstruction versus bowel perforation versus aortic dissection etc. Initial workup will be conducted with hematologic labs CT scan chest abdomen pelvis. Initial interventions include crystalloid bolus and Zofran. 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 Patient also has a chronic appearing pulmonary embolus in the right central pulmonary artery. No evidence of vascular strain identified. I have ordered initiation of electrolyte repletion with magnesium and calcium IV. Upon repeat evaluation patient still intolerant of oral intake after multiple doses of medications. Given this I had interactive discussion with hospital medicine regarding patient presentation KENNEDY and management and she will be admitted for further evaluation and care. DO Trell: I was consulted by the DIGNA, and we discussed the complexity of the problems being addressed. I approved the treatment and management plan for this patient's care in the emergency department, thus performing a substantive portion of the medical decision making. Radiology feels that all of the CTA changes are chronic as opposed to being acute, and patient is neurovascularly intact distally in her bilateral lower extremities. Given this, hospitalist feels that she can be managed inpatient here for her critical electrolyte disturbances and aortic mural thrombus. I ordered Lovenox at his instruction and admitted the patient in stable condition. Meaghan Cai DO Procedures <Meaghan Cai DO - Last Filed: 11/18/24 23:26> Miscellaneous Procedure Procedure Performed: PROCEDURE NOTE: IV Placement under Ultrasound Guidance Performed by: Meaghan Cai DO Indication: IV access required. Multiple attempts at peripheral IV placement were made by the nursing staff without success Procedure: The area was prepped in the usual fashion. The right basilic was cannulated with a 20 gauge angiocath with use of dynamic ultrasound to identify the vein. The patient tolerated the procedure well. Complications: None PROCEDURE NOTE: IV Placement under Ultrasound Guidance Performed by: Meaghan Cai DO Indication: IV access required. Multiple attempts at peripheral IV placement were made by the nursing staff without success Procedure: The area was prepped in the usual fashion. The left basilic was cannulated with a 20 gauge angiocath with use of dynamic ultrasound to identify the vein. The patient tolerated the procedure well. Complications: None Critical Care <GABE Orr - Last Filed: 11/18/24 23:03> Critical Care Time Critical Care Time: Yes Attestation: On 11/18/24, the high probability of a clinically significant, sudden or life threatening deterioration of the following system(s) required my full and direct attention, intervention and personal management. The time I documented below is in addition to time spent performing reported procedures but includes the following listed in this critical care notation. Total Time Total Critical Care Time: 30 <Meaghan Cai DO - Last Filed: 11/18/24 23:26> Total Time Total Critical Care Time: 55
--- NOTE | 2024-11-18 18:51 | PC.NURSE ---
ems tried to get iv two times no sucsess. i attempted twice both were unsusessful. patient states she is usually ultrasound iv
[2024-11-18 19:11] LABS: Albumin Level 4.1 g/dl (3.5-5.0); Chloride 108 mmol/L (98-107)
[2024-11-18 19:12] LABS: Potassium 3.9 mmoL/L (3.5-5.1); Sodium 142 mmol/L (136-145)
[2024-11-18 19:14] LABS: Alanine Aminotransferase 24 U/L (12-78); Anion Gap 17.9 mEq/L (5-15); Aspartate Amino Transferase 41 U/L (14-36); Blood Urea Nitrogen 15 mg/dl (7-17); Carbon Dioxide 20 mmol/L (22.0-30.0); Creatinine Clearance Estimated 53 mL/min (50-200); Estimated Glomerular Filt Rate 62 ml/min (>60); GFR (African American) 76 ML/MIN (>60)
[2024-11-18 19:15] LABS: Albumin/Globulin Ratio 0.9 (1.1-1.8); Alkaline Phosphatase 65 U/L (38-126); Bilirubin,Total 0.8 mg/dl (0.2-1.3); Calcium 7.2 mg/dl (8.4-10.2); Globulin 4.5 g/dL (1.3-3.2); Glucose 146 mg/dl (74-100); Lipase 64 U/L (23-300); Total Protein,Serum 8.6 g/dl (6.3-8.2)
[2024-11-18 19:21] LABS: Magnesium < 0.2 mg/dl (1.6-2.3)
[2024-11-18 19:46] LABS: Procalcitonin 0.052 ng/mL (0.0-2.0)
[2024-11-18] MEDS: PROMETHAZINE HCL 25MG/ML 1ML VIAL 25 MG IM (19:48)
[2024-11-18] MEDS: 0.9 % SODIUM CHLORIDE 1000ML 1,000 ML 999 ML IV (19:54)
[2024-11-18 19:56] LABS: Basophils % 0.6 % (0.1-2.0); Eosinophils % 0.3 % (0.1-12.0); Hematocrit 35.6 % (37.0-47.0); Hemoglobin 11.6 g/dL (12.2-16.2); Immature Granulocytes # 0.05 10^3uL; Immature Granulocytes % 0.8 %; Lymphocytes # 0.8 K/mm3 (0.7-4.5); Lymphocytes % 11.8 % (10-50); Mean Corpuscular HGB Conc 32.6 g/dL (31.8-35.4); Mean Corpuscular Hemoglobin 26.4 pg (27.0-31.2); Mean Corpuscular Volume 80.9 fl (81-99); Mean Platelet Volume 10.1 fl (7.4-10.4); Monocytes # 0.4 K/mm3 (0.1-1.0); Neutrophils # 5.1 K/mm3 (1.8-7.8); Neutrophils % 80.5 % (37.0-80.0); Nucleated Red Blood Cells # 0 10^3/uL; Nucleated Red Blood Cells % 0 %; Platelet Count 181 K/mm3 (142-424); Red Cell Distribution Width 15.8 % (11.5-17.5); Red Cell Distribution Width-SD 46.6 fL; White Blood Count 6.3 K/mm3 (4.8-10.8)
[2024-11-18 20:10] LABS: Lactic Acid 1.6 mmol/L (0.7-2.1)
--- NOTE | 2024-11-18 20:18 | CT_ITS ---
PROCEDURE INFORMATION: Exam: CTA Abdominal Aorta and Bilateral Lower Extremities (Run-off) With Contrast Exam date and time: 11/18/2024 9:17 PM Age: 69 years old Clinical indication: Abdominal pain; Generalized; Additional info: Severe abd pain, L leg pain TECHNIQUE: Imaging protocol: Computed tomographic angiography of the of the abdominal aorta, pelvis and bilateral lower extremities with contrast. 3D rendering (Not supervised by radiologist): MIP and/or 3D reconstructed images were created by the technologist. Radiation optimization: All CT scans at this facility use at least one of these dose optimization techniques: automated exposure control; mA and/or kV adjustment per patient size (includes targeted exams where dose is matched to clinical indication); or iterative reconstruction. Contrast material: ISOVUE; Contrast volume: 100 ml; Contrast route: INTRAVENOUS (IV); COMPARISON: CT ABDOMEN PELVIS WO CON 09/25/2022 11:32 AM FINDINGS: Aorta: Previously not seen, age-indeterminate, descending thoracoabdominal aorta with eccentric mural thrombus (series 5 image [id number]). No aneurysm. Atherosclerotic calcification. Celiac trunk and mesenteric arteries: No occlusion or significant stenosis. Mild osteo atherosclerotic calcification. Renal arteries: No occlusion or significant stenosis. Mild ostial atherosclerotic calcification. Right iliac arteries: No occlusion or significant stenosis. Atherosclerotic calcification. Right femoral/popliteal arteries: No occlusion or significant stenosis. Atherosclerotic calcification. Right infrapopliteal arteries: No occlusion or significant stenosis. Atherosclerotic calcification. 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 Atherosclerotic calcification. Left femoral/popliteal arteries: No occlusion or significant stenosis. Atherosclerotic calcification. Left infrapopliteal arteries: No occlusion or significant stenosis. Atherosclerotic calcification. Liver: No mass. Gallbladder and biliary ducts: Surgically absent gallbladder without biliary ductal dilatation. No choledocholithiasis. Pancreas: Unremarkable. No mass. No ductal dilation. Spleen: Normal. No splenomegaly. Adrenal glands: Normal. No mass. Kidneys and ureters: No nephroureterolithiasis No mass. Stomach and bowel: Post colectomy changes. Right lower quadrant ostomy. Nonobstructive bowel gas pattern. Mucosal enhancement. Appendix: No evidence of appendicitis. Urinary bladder: Pericystic fat stranding. Reproductive: Unremarkable as visualized. Intraperitoneal space: Unremarkable. No free air. No significant fluid collection. Lymph nodes: No lymphadenopathy. Bones/joints: No acute fracture. No dislocation. Soft tissues: Unremarkable. IMPRESSION: 1. Age-indeterminate, eccentric mural thrombus in descending thoracoabdominal aorta without aneurysm. Can not exclude chronic dissection with thrombosed false lumen. 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 2. Postoperative changes with nonobstructive pattern. Mucosal enhancement possibly reflecting viral etiology. 3. Cystitis versus postsurgical changes.
--- NOTE | 2024-11-18 20:18 | CT_ITS ---
PROCEDURE INFORMATION: Exam: CTA Chest With Contrast Exam date and time: 11/18/2024 9:12 PM Age: 69 years old Clinical indication: Pain; Chest pressure; Additional info: Severe abd pain, L leg pain TECHNIQUE: Imaging protocol: Computed tomographic angiography of the chest with contrast. Exam focused on the arteries. 3D rendering (Not supervised by radiologist): MIP and/or 3D reconstructed images were created by the technologist. Radiation optimization: All CT scans at this facility use at least one of these dose optimization techniques: automated exposure control; mA and/or kV adjustment per patient size (includes targeted exams where dose is matched to clinical indication); or iterative reconstruction. Contrast material: ISOVUE; Contrast volume: 80 ml; Contrast route: INTRAVENOUS (IV); COMPARISON: CT ANGIO CHEST PE PROTOCOL 12/05/2022 1:37 PM FINDINGS: Pulmonary arteries: Nonocclusive, eccentric intraluminal filling defect in right central pulmonary artery (series 5, image 77). Aorta: Previously not seen, age-indeterminate, descending thoracoabdominal aorta with eccentric mural thrombus (series 5 image [id number]). No aneurysm. Mild atherosclerotic calcification. Lungs: Similar, underlying centrilobular emphysematous changes. Left lower lobar subsegmental atelectasis. Pleural spaces: Unremarkable. No pneumothorax. No pleural effusion. Heart: Unremarkable. No cardiomegaly. No pericardial effusion. Heart RV/LV ratio: 0.98. Lymph nodes: Unremarkable. No enlarged lymph nodes. Bones/joints: Stable T12 vertebral body compression fracture without bony retropulsion. No acute findings. Soft tissues: Unremarkable. IMPRESSION: 1. Previously not seen, age-indeterminate, descending thoracoabdominal aortic eccentric mural thrombus without aneurysm. Aortic dissection with thrombosed false lumen versus mural thrombus in differential considerations. 2. Eccentric, nonocclusive, intraluminal filling defect in right central pulmonary artery suspicious for chronic, nonocclusive pulmonary embolism without right ventricular strain identified. COMMENTS: The presence of pulmonary emphysema on CT is an independent risk factor for lung cancer. In the absence of a history or active diagnosis of lung cancer, it is recommended that this patient with emphysema be evaluated for enrollment in a low dose CT lung cancer screening program.
[2024-11-18] MEDS: CALCIUM GLUC IN NACL, ISO-OSM 2 GM/100 ML BAG IV (20:24)
[2024-11-18] MEDS: MAGNESIUM SULFATE IN WATER 2 GM/50 ML PIGGYBACK IV (20:24)
[2024-11-18] MEDS: HYDROMORPHONE 2MG/ML SYRINGE 2 MG IV (20:26)
--- NOTE | 2024-11-18 21:05 | PC.NURSE ---
Pt to CT scan via stretcher
[2024-11-18] MEDS: SODIUM CHLORIDE 0.9% 10ML SYR (RAD ONLY) 10 ML IV (21:23)
[2024-11-18] MEDS: IOPAMIDOL-370 (76%);100ML BOTTLE 180 ML IV (21:23)
[2024-11-18] MEDS: 0.9 % SODIUM CHLORIDE 50 ML VIAL IV (21:23)
--- NOTE | 2024-11-18 21:59 | P.HP_ITS ---
History of Present Illness *Admission Date: 11/18/24 *Reason for visit:: Nausea *History of present illness: Patient presents via EMS for intractable nausea vomiting abdominal pain and left lower extremity pain. Patient states that she had abrupt onset of vomiting since 9 this morning. She has not been able to tolerate any oral intake. Patient does have a history of a total colectomy with ostomy and most recently had a reoperation at the [facility] for presumed bowel obstruction although I do not have her records currently. Patient states that she has not had any ostomy output or passing flatus through her ostomy today. She states that she has left-sided abdominal pain but denies fever chills hemoptysis hematochezia melena nausea vomiting diarrhea. Patient states that her left lower extremity started cramping this afternoon severely. She states it feels similar to when she had a blood clot before. Currently she denies chest pain shortness of breath fever chills hemoptysis hematochezia melena hematemesis hematuria. Hospitalist contacted due to multiple electrolyte abnormalities present on laboratory evaluation. There is also an NSTEMI. CTA aorta and distal runoff demonstrates large mural thrombus in the thoracic descending aorta in addition to the distal infrarenal aorta. Other than her abdominal issues described above she has no other active issues or complaints [facility] Disclaimer: The information contained in this section may have been updated after the patient was seen, as this information can be updated by other users. Medical History Hypocalcemia Hypomagnesemia Hypokalemia Fall Fracture of first metatarsal bone of left foot Fracture of left foot Blood pressure instability Pericardial effusion Urethritis YAJAIRA (acute kidney injury) Gastroenteritis Seasonal allergies Pulmonary embolism Chest pain Pleural effusion Hypotension UTI (urinary tract infection), bacterial Ileus, unspecified Urinary tract infection Acute urinary retention Hyperkalemia YAJAIRA (acute kidney injury) Acute abdomen Sepsis Altered mental status Almazan catheter problem Urine incontinence Cellulitis Diastolic dysfunction Encounter for pre-operative cardiovascular clearance Renal insufficiency Shoulder pain History of pulmonary embolism COPD mixed type Thrombosis Hemorrhoids Cataract Hypokalemia Claudication Pleural effusion, left Stopped smoking with greater than 30 pack year history Dyspnea on exertion Edema HHD (hypertensive heart disease) Elevated left ventricular end-diastolic pressure (LVEDP) CAD (coronary artery disease) Numbness Coronary artery calcification seen on CT scan COPD (chronic obstructive pulmonary disease) Tobacco abuse PRAKASH on CPAP SOB (shortness of breath) HTN (hypertension) Vitamin D deficiency (~11/21/17) Hyperlipidemia (~11/21/17) Surgical History History of carpal tunnel release History of cholecystectomy H/O: hysterectomy History of intestinal surgery Family History Other No significant family history Social History (Updated 11/18/24 @ 23:17 by Sophie Munoz RN) Smoking Status: Never smoker years smoked: 45 smoking status stop date: 2017 second hand exposure: Yes alcohol intake: never substance use type: marijuana current occupational status: other Travel in the last 8 weeks?: None household members: spouse housing: house current occupational exposures/hazards: No caffeine: No Have you lived/traveled outside [place] in past 30 days?: No Contact w/someone who lives/traveled outside [place] past 30 days?: No Exposure to someone with infectious disease in past 14 days?: No Do you have a fever (greater than 100.4 F or 38 C)?: No Have you tested positive for COVID-19?: No Exposed to someone with COVID-19 in past 14 days?: No Do you have a sore throat?: No Do you have a cough?: No Do you have any weakness?: No Are you experiencing any nausea/vomitting?: No Do you have any diarrhea?: No Are you experiencing any unusual bleeding?: No Do you have any muscle aches/pain?: No Do you have any abdominal pain?: No Are you experiencing loss of taste or smell?: No Other Medical History Have you received the Flu Vaccine for this season: Yes Have you received the Pneumonia Vaccine: Yes Review of Systems Review of Systems Review of systems:: pertinent systems reviewed and negative unless documented below Constitutional Constitutional: Reports body ache(s) ENT Ears, Nose, Mouth, and Throat: Reports system reviewed and no additional complaints, except as documented *Cardiovascular Cardiovascular: Reports system reviewed and no additional complaints, except as documented, Denies chest pain and Denies dyspnea *Respiratory Respiratory: Reports system reviewed and no additional complaints, except as documented and Denies dyspnea *Gastrointestinal Gastrointestinal: Reports system reviewed and no additional complaints, except as documented *Genitourinary Genitourinary: Reports system reviewed and no additional complaints, except as documented *Musculoskeletal Musculoskeletal: Reports system reviewed and no additional complaints, except as documented *Neurologic Neurologic: Reports system reviewed and no additional complaints, except as documented Meds Home Medications and Allergies Home Medications ?Medication ?Instructions ?Recorded ?Confirmed ?Type multivitamin 1 tab PO DAILY 09/23/2310/23 History ondansetron 4 mg disintegrating 4 mg PO Q8HP PRN nause a/vomiting 09/23/23 11/13/24 History tablet methenamine hippurate 1 gram tablet 1 g PO BID 11/13/24 History ropinirole 0.5 mg tablet 0.5 mg PO HS #30 tabs 11/13/24 Rx tizanidine 4 mg tablet (Zanaflex) 4 mg PO TID PRN musc le spasms #90 06/15/24 11/13/24 Rx tabs potassium chloride 20 mEq 20 meq PO DAILY 08/20/24 History tablet,extended release(part/cryst) alendronate 70 mg tablet 70 mg PO WEEKLY OSTEOARTHRIT IS #14 10/01/24 11/13/24 Rx tabs bupropion HCl 75 mg tablet 150 mg (2 x 75 mg) PO #120 10/01/24 11/13/24 Rx tabs albuterol sulfate 90 mcg/actuation 2 puff inhalation Q IDP PRN sob 10/02/24 11/13/24 Rx aerosol inhaler #8.5 grams glycopyrrolate 9 mcg-formoterol 2 puff inhalation BID 90 days 10/12/24 11/13/24 Rx 4.8 mcg HFA aerosol inhaler #10.7 grams (Bevespi Aerosphere) gabapentin 100 mg capsule 100 mg PO BID #60 caps 10/2111/13/24 Rx levothyroxine 50 mcg tablet 50 mcg PO DAILY #90 tabs 0 10/21/24 11/13/24 Rx pantoprazole 40 mg tablet,delayed 40 mg PO BID #180 ta bs 10/21/24 11/13/24 Rx release trazodone 100 mg tablet 200 mg (2 x 100 mg) PO HS In somnia 10/21/24 11/13/24 Rx #30 tabs rosuvastatin 20 mg tablet 20 mg PO HS Cholesterol #90 tabs 10/28/24 11/13/24 Rx oxycodone-acetaminophen 5 mg-325 1 tab PO Q8H PRN pain #90 tabs 11/13/24 11/13/24 Rx mg tablet (Percocet) ergocalciferol (vitamin D2) 1,250 1,250 mcg PO WEEKLY Supplement #5 11/17/24 Rx mcg (50,000 unit) capsule caps New Prescriptions to Start Prescriptions: Allergies Allergy/AdvReac Type Severity Reaction Status Date / Time codeine Allergy Intermediate I-HIVES Verified 11/13/24 11:25 sulfamethoxazole (From Allergy Intermediate I-HIVES Verified 11/13/24 11:25 ) trimethoprim (From ) Allergy Intermediate I-HIVES Verified 11/13/24 11:25 ibuprofen (IBUPROFEN) Allergy Unknown VOMITING Verified 11/13/24 11:25 Exam Data for Last 24 hours Vital signs and Labs for Last 24 Hours: Temp Pulse Resp BP Pulse Ox O2 Del Method 97.7 F 74 15 124/63 92 L Room Air 11/18/24 18:17 11/18/24 21:31 11/18/24 21:31 11/18/24 21:31 11/18/24 21:31 11/18/24 18:17 Laboratory Results - last 24 hr 11/18/24 18:44: Sodium 142, Potassium 3.9, Chloride 108 H, Carbon Dioxide 20 L, Anion Gap 17.9 H, BUN 15, Creatinine 0.90, Estimated Creat Clear 53, Estimated GFR 62, Est GFR ( Amer) 76, Glucose 146 H, Calcium 7.2 L, Magnesium < 0.2 L, Total Bilirubin 0.8, AST 41 H, ALT 24, Alkaline Phosphatase 65, Total Protein 8.6 H D, Albumin 4.1, Globulin 4.5 H, Albumin/Globulin Ratio 0.9 L, Lipase 64, Procalcitonin 0.052 11/18/24 19:45: WBC 6.3, RBC 4.40, Hgb 11.6 L, Hct 35.6 L, MCV 80.9 L, MCH 26.4 L, MCHC 32.6, RDW 15.8, Plt Count 181, MPV 10.1, Neut % (Auto) 80.5 H, Lymph % (Auto) 11.8, [place] % (Auto) 6.0, Eos % (Auto) 0.3, Baso % (Auto) 0.6, Neut # (Aut o) 5.1, Lymph # (Auto) 0.8, [place] # (Auto) 0.4, Eos # (Auto) 0.0, Baso # (Auto) 0.0, Lactate 1.6 I & O for Last 24 hours: Intake & Output 11/15/24 11/16/24 11/17/24 11/18/24 23:59 23:59 23:59 23:59 Weight 61.235 kg Constitutional Constitutional: mild distress and thin *Routine HEENT Exam Head: Present normocephalic Eye: Present EOMI and PERRL ENT: Present mucous membranes moist *Routine Neck Exam Neck: Present supple; Absent lymphadenopathy *Routine Respiratory Exam Respiratory: Present CTA bilaterally *Routine Cardiovascular Exam Cardiovascular: Present RRR *Routine Abdominal Exam Abdominal: Present soft, normoactive bowel sounds and tenderness *Routine Rectal Exam Rectal:: deferred *Routine Genitalia Exam Genitalia:: deferred *Routine Extremities Exam Extremities: Absent cyanosis, clubbing or edema *Routine Skin Exam Skin: Present warm; Absent rash *Routine Neurological Exam Neurological: Present alert and oriented X3 Assessment and Plan *Assessment and plan (1) Hypomagnesemia: Status: Acute Category: Medical Code(s): E83.42 - Hypomagnesemia (2) History of pulmonary embolism: Status: Acute Category: Medical Code(s): Z86.711 - Personal history of pulmonary embolism (3) Colostomy in place: Status: Acute Category: Medical Code(s): Z93.3 - Colostomy status (4) Anemia: Status: Acute Qualifiers: Anemia type: unspecified type Qualified Code(s): D64.9 - Anemia, unspecified Category: Medical Code(s): D64.9 - Anemia, unspecified (5) CAD (coronary artery disease): Status: Chronic Qualifiers: Coronary Disease-Associated Artery/Lesion type: [place] artery [place] vs. transplanted heart: [place] heart Associated angina: without angina Qual ified Code(s): I25.10 - Atherosclerotic heart disease of [place] coronary artery without angina pectoris Category: Medical Code(s): I25.10 - Atherosclerotic heart disease of [place] coronary artery without angina pectoris (6) HTN (hypertension): Status: Chronic Qualifiers: Hypertension type: essential hypertension Qualified Code(s): I10 - Essential (primary) hypertension Category: Medical Code(s): I10 - Essential (primary) hypertension (7) Decreased oral intake: Status: Acute Category: Medical Code(s): R63.8 - Other symptoms and signs concerning food and fluid intake (8) Aortic thrombus: Status: Acute Category: Medical Code(s): I74.10 - Embolism and thrombosis of unspecified parts of aorta Plan 39-year-old admitted for inability to tolerate p.o. for multiple days. Found to have multiple severe electrolyte abnormalities. Additionally CTA demonstrated a mural thrombus without dissection, she has intact neurovascular lower extremities. Inability to tolerate p.o. - Supportive management Aortic mural thrombus - Neurovascularly intact - Lovenox 1 mg/kg twice daily - Transition to DOAC - Cardiology consult - Echo ordered Hypomagnesemia, severe - Replete - residential monitor Chronic medical conditions, will resume home medications once reconciled
[2024-11-18 22:21] LABS: Creatine Kinase 65 U/L (30-135)
--- NOTE | 2024-11-18 22:46 | PC.NURSE ---
Report called to Walter KAPADIA Pt transported to inpatient unit via stretcher by [employer]ELOP[employer]IST
[2024-11-18 23:00] LABS: Lactic Acid 0.8 mmol/L (0.7-2.1)
--- NOTE | 2024-11-18 23:14 | PC.NURSE ---
Patient arrived to floor via stretcher from ED at 23:01.
[2024-11-18] MEDS: ENOXAPARIN 100MG/ML SYRINGE 60 MG SUBCUT (23:27)
[2024-11-18] MEDS: ONDANSETRON 4MG/2ML VIAL 4 MG IV (23:28)
[2024-11-19] VITALS (7 sets, daily range): BP systolic 111–133; BP diastolic 60–72; PULSE 65–83; RESP 16–19; TEMP 36.6–36.9; O2SAT 96–100; BMI 24.3
--- NOTE | 2024-11-19 00:03 | PC.NURSE ---
dressing to midline incision changed
--- NOTE | 2024-11-19 00:07 | CA_ITS ---
APPROVED REPORT EXAM: Limited 2D Echocardiogram Varnishing Machine Operator: Dalila Rubio CRT Ht: 5 ft 3 in Wt: 134lbs BSA: 1.63 BP: 140/60 mmHg Indications: EF check, COPD, CAD, anal ca, thrombus in thoracic descending aorta and distal infrarenal aorta M-Mode Dimensions RVDd 3.07 cm (0.9-2.6) LA Diam 2.44 cm (1.9-4.0) LVDd 4.00 cm (3.5-5.7) LVDs 2.00 cm (3.5-5.7) IVSd 1.36 cm (0.6-1.1) PWd 0.96 cm (0.6-1.1) EF (Teich) 81.90% FS 50.00% EDV (Teich) 70.00 mL ESV (Teich) 12.70 mL Other Information Study Quality: Fair Conclusion This is a limited TTE to evaluate for LV systolic function. Limited windows are obtained. The left ventricle is normal in size. There is increased LV wall thickness. There is normal global LV systolic function. No regional wall motion abnormalities are noted. LVEF is 60%. Electronically signed by : Lisa Khanna MD 11/19/2024 13:02:28
[2024-11-19] MEDS: HYDROCODONE/APAP 5/325 MG TABLET 1 TAB PO ×2 (01:20→09:12)
[2024-11-19] MEDS: MAGNESIUM SULFATE IN WATER 2 GM/50 ML PIGGYBACK IV ×3 (01:33→16:06)
--- NOTE | 2024-11-19 01:46 | PC.WOUNDNOTE ---
midline incision and ostomy
[2024-11-19 06:40] LABS: Basophils # 0.1 K/mm3 (0-0.2); Eosinophils # 0.1 Kmm3 (0.0-0.4); Hematocrit 32.2 % (37.0-47.0); Immature Granulocytes # 0.03 10^3uL; Immature Granulocytes % 0.6 %; Lymphocytes # 1.4 K/mm3 (0.7-4.5); Lymphocytes % 27.9 % (10-50); Mean Corpuscular Hemoglobin 26.8 pg (27.0-31.2); Mean Corpuscular Volume 83.9 fl (81-99); Mean Platelet Volume 10.7 fl (7.4-10.4); Monocytes # 0.7 K/mm3 (0.1-1.0); Monocytes % 13.1 % (1.7-9.3); Neutrophils # 2.9 K/mm3 (1.8-7.8); Neutrophils % 56.4 % (37.0-80.0); Nucleated Red Blood Cells # 0 10^3/uL; Nucleated Red Blood Cells % 0 %; Platelet Count 139 K/mm3 (142-424); Red Blood Count 3.84 M/mm3 (4.20-5.40); Red Cell Distribution Width 16.1 % (11.5-17.5); Red Cell Distribution Width-SD 49.1 fL; White Blood Count 5.1 K/mm3 (4.8-10.8)
[2024-11-19 06:54] LABS: Alanine Aminotransferase 15 U/L (12-78); Albumin Level 3.3 g/dl (3.5-5.0); Alkaline Phosphatase 89 U/L (38-126); Anion Gap 15.2 mEq/L (5-15); Aspartate Amino Transferase 28 U/L (14-36); Bilirubin,Total 0.5 mg/dl (0.2-1.3); Blood Urea Nitrogen 15 mg/dl (7-17); Calcium 7.4 mg/dl (8.4-10.2); Carbon Dioxide 19 mmol/L (22.0-30.0); Chloride 108 mmol/L (98-107); Creatinine Clearance Estimated 54 mL/min (50-200); Estimated Glomerular Filt Rate 62 ml/min (>60); GFR (African American) 76 ML/MIN (>60); Globulin 3.3 g/dL (1.3-3.2); Glucose 78 mg/dl (74-100); Magnesium 1.5 mg/dl (1.6-2.3); Phosphorous 4.3 mg/dl (2.5-4.5); Potassium 3.2 mmoL/L (3.5-5.1); Sodium 139 mmol/L (136-145); Total Protein,Serum 6.6 g/dl (6.3-8.2)
[2024-11-19 07:34] LABS: Hemoglobin 10.4 g/dL (12.2-16.2)
--- NOTE | 2024-11-19 09:32 | HMH.PHAINT1 ---
Pharmacy Intervention Comments: MEDICATION RECONCILIATION COMPLETED ON PATIENT USING EXTERNAL FILL HISTORY FROM PHARMACY AND LIST FROM PCP OFFICE. -BAHMAN BRYANT, ZULEIMAD
--- NOTE | 2024-11-19 10:43 | HMH.PTEV ---
Physical Therapy Evaluation Rehab PT IP Evaluation Start: 11/18/24 23:21 Freq: ONCE Status: Active Protocol: Document 11/19/24 10:25 POLI (Rec: 11/19/24 10:41 OPLI [id number]) Subjective/History History History H&P: Patient presents via EMS for intractable nausea vomiting abdominal pain and left lower extremity pain. Patient states that she had abrupt onset of vomiting since 9 this morning. She has not been able to tolerate any oral intake. Patient does have a history of a total colectomy with ostomy and most recently had a reoperation at the [facility] for presumed bowel obstruction although I do not have her records currently. Patient states that she has not had any ostomy output or passing flatus through her ostomy today. She states that she has left-sided abdominal pain but denies fever chills hemoptysis hematochezia melena nausea vomiting diarrhea. Patient states that her left lower extremity started cramping this afternoon severely. She states it feels similar to when she had a blood clot before. Currently she denies chest pain shortness of breath fever chills hemoptysis hematochezia melena hematemesis hematuria. Hospitalist contacted due to multiple electrolyte abnormalities present on laboratory evaluation. There is also an NSTEMI. CTA aorta and distal runoff demonstrates large mural thrombus in the thoracic descending aorta in addition to the distal infrarenal aorta. Other than her abdominal issues described above she has no other active issues or complaints Subjective Subjective Pt reports she lives in a trailer with her and two roommates. Currently, pt's is in the ICU at and pt has the goal to return home so she can visit him. Pt has 4 YONG home and uses a RW and w/c for mobility. Pt reports her roommates are able to assist as needed. New diagnosis of No cancer in past 12 months? [facility] How much help from another person do you currently need... Turning from your None back to your side while in a flat bed without using bedrails? Moving from lying on None back to sitting on the side of a flat bed without using bedrails? Moving to and from a A little bed to a chair ( including a wheelchair)? Standing up from a A little chair using your arms? (e.g., wheelchair, bedside chair) Walking in hospital A little room? Climbing 3-5 steps A little with a railing? Mobility Score 20 Mobility Level [facility] Mobility 6 Walk 10 steps or more Mobility Calculator Rehab PT IP Eval Objective Appearance Patient Behavior Appropriate,Cooperative Patient Orientation Person,Place Difficulty following none instructions Speech Pattern Clear Ambulation Patient Able to Yes Ambulate Ambulation Observation IP General Gait Antalgic Gait Pattern Observation Ambulation Distance 5 (feet) Ambulation Assistive Standard Walker Device Ambulation Ability Contact Guard/Hand Hold Balance Ability to Arise Able, uses arms to help Sitting Balance Steady, safe Standing Balance Steady, wide stance Dynamic Sitting Good Balance Ability Dynamic Standing Fair Balance Ability Transfers Bed Transfer Ability Supervision/Stand by Sit to Stand Bed Supervision/Stand by Transfer Ability Sit to Stand Chair Supervision/Stand by Transfer Ability Rehab PT IP prob,goals,plan Problems Date of Evaluation: 11/19/24 PT IP Problems Bed Mobility,Transfers,Gait,Balance,Self care,Safety Equipment Needs Assistive Devices Rolling / Wheeled Walker Plan PT Intervention Plan Bed Mobility,Transfers,Gait,Balance,Self care,Safety, Therapeutic Exercise Other Intervention 1-2 times Plan PT Plan Frequency Daily Duration LOS Discharge Goals Bed Transfer Ability Independent Sit to Stand Chair Independent Transfer Ability Ambulation Assistive Rolling Walker Device Ambulation Distance 15 (feet) Discharge Plan PT Discharge Plan Initial physical therapy evaluation performed. Patient presents below baseline at this time in functional mobility, transfers, gait, and strength. Pt was able to demonstrate mobility with close supervision. Pt's ambulation ability is primarily limited by pain in LLE rather than generalized weakness. Pt would benefit from skilled PT while at [facility] to prevent further functional decline and maximize safety with mobility. Pt most appropriate to d/c home with 24/7 assistance when deemed medically necessary d/t current level of mobility, home set-up, available equipment, and friend support. PT recommending home health PT services to address deficits. If pt unable to have 24/7 assistance, pt would benefit from rehabilitation placement. Eval Complexity Eval Charge Codes 97172 - Moderate Complexity PHYSICIAN CERTIFICATION: I certify the specified therapy services for Davina Vidal are required, authorized, and reviewed every 30 days.
[2024-11-19] MEDS: ENOXAPARIN 60MG/0.6ML SYRINGE 60 MG SUBCUT ×2 (11:27→23:43)
[2024-11-19] MEDS: ONDANSETRON 4MG/2ML VIAL 4 MG IV (11:27)
--- NOTE | 2024-11-19 11:43 | SW/DCPLANNER ---
I spoke w/ this patient regarding plans once medically stable for discharge. PT evaluated patient and recommended home w/ -7 care vs placement. Patient voiced that she is not interested in placement at this time. Patient stated that she is unsure about home health services at this time. I will continue to follow up w/ patient and family. Discharge date is unknown at this time.
[2024-11-19] MEDS: OXYCODONE 5MG W/APAP 325MG TABLET 1 EACH PO ×2 (12:46→20:25)
[2024-11-19] MEDS: POTASSIUM CHLORIDE 20MEQ TAB 40 MEQ PO ×2 (12:48→16:40)
--- NOTE | 2024-11-19 14:47 | PC.NURSE ---
Jn called to place ultrasound guided iv.
--- NOTE | 2024-11-19 15:42 | P.PN_ITS ---
Subjective *Date: 11/19/24 *Time: 19:10 Interval history: Patient complains of being achy all over. Stable on room air. No nausea or vomiting this morning. Appears to have resolved. Showing some improvement electrolytes. Aggressively replacing per protocol. Medical Exam Vital signs and Labs for Last 24 Hours: Vital Signs Temp Pulse Pulse Resp BP BP Pulse Ox 11/19/24 14:28 11/19/24 12:55 11/19/24 12:00 70 11/19/24 11:35 97.9 F 74 19 133/71 97 11/19/24 11:00 11/19/24 08:00 98.0 F 73 18 111/60 100 11/19/24 08:00 11/19/24 06:45 11/19/24 05:00 11/19/24 04:00 98.5 F 79 16 114/63 96 11/19/24 04:00 70 11/19/24 03:00 11/19/24 01:00 11/18/24 23:56 98.2 F 83 21 147/79 H 98 11/18/24 23:08 11/18/24 23:02 98.0 F 74 20 120/60 11/18/24 21:31 74 15 124/63 92 L 11/18/24 21:26 54 L 16 134/63 92 L 11/18/24 21:00 80 15 154/88 H 95 11/18/24 20:30 68 16 163/94 H 100 11/18/24 19:43 72 16 170/102 H 97 11/18/24 18:17 97.7 F 94 H 18 166/108 H 98 O2 Del Method 11/19/24 14:28 Room Air 11/19/24 12:55 Room Air 11/19/24 12:00 11/19/24 11:35 Room Air 11/19/24 11:00 Room Air 11/19/24 08:00 Room Air 11/19/24 08:00 Room Air 11/19/24 06:45 Room Air 11/19/24 05:00 Room Air 11/19/24 04:00 Room Air 11/19/24 04:00 11/19/24 03:00 Room Air 11/19/24 01:00 Room Air 11/18/24 23:56 11/18/24 23:08 Room Air 11/18/24 23:02 Room Air 11/18/24 21:31 11/18/24 21:26 11/18/24 21:00 11/18/24 20:30 11/18/24 19:43 11/18/24 18:17 Room Air Intake and Output 11/18/24 11/19/24 11/19/24 23:59 07:59 15:59 Intake Total 240 / 750 510 / 750 Output Total 300 / 300 0 / 300 Balance -60 / 450 510 / 450 Intake: Intake, Oral Amount 240 / 750 510 / 750 Output: Output, Urine Amount 300 / 300 0 / 300 Other: Number of Unmeasured Voids 0 1 Number of Bowel Movements 1 1 Weight 60.827 kg 62.188 kg Patient Weight 11/19/24 23:59 Weight 62.188 kg Laboratory Results - last 24 hr 11/18/24 16:44: Total Creatine Kinase 65 11/18/24 18:44: Sodium 142, Potassium 3.9, Chloride 108 H, Carbon Dioxide 20 L, Anion Gap 17.9 H, BUN 15, Creatinine 0.90, Estimated Creat Clear 53, Estimated G FR 62, Est GFR ( Amer) 76, Glucose 146 H, Calcium 7.2 L, Magnesium < 0.2 L, Total Bilirubin 0.8, AST 41 H, ALT 24, Alkaline Phosphatase 65, Total Protein 8.6 H D, Albumin 4.1, Globulin 4.5 H, Albumin/Globulin Ratio 0.9 L, Lipase 64, Procalcitonin 0.052 11/18/24 19:45: WBC 6.3, RBC 4.40, Hgb 11.6 L, Hct 35.6 L, MCV 80.9 L, MCH 26.4 L, MCHC 32.6, RDW 15.8, Plt Count 181, MPV 10.1, Neut % (Auto) 80.5 H, Lymph % (Auto) 11.8, Hale % (Auto) 6.0, Eos % (Auto) 0.3, Baso % (Auto) 0.6, Neut # (Auto) 5.1, Lymph # (Auto) 0.8, Hale # (Auto) 0.4, Eos # (Auto) 0.0, Baso # (Auto) 0.0, Lactate 1.6 11/18/24 22:40: Lactate 0.8 11/19/24 05:24: WBC 5.1, RBC 3.84 L, Hgb 10.4 L D, Hct 32.2 L, MCV 83.9, MCH 26.8 L, MCHC 32.0, RDW 16.1, Plt Count 139 L, MPV 10.7 H, Neut % (Auto) 56.4, Lymph % (Auto) 27.9, Hale % (Auto) 13.1 H, Eos % (Auto) 1.0, Baso % (Auto) 1.0, Neut # (Auto) 2.9, Lymph # (Auto) 1.4, Hale # (Auto) 0.7, Eos # (Auto) 0.1, Baso # (Auto) 0.1, Sodium 139, Potassium 3.2 L, Chloride 108 H, Carbon Dioxide 19 L, Anion Gap 15.2 H, BUN 15, Creatinine 0.90, Estimated Creat Clear 54, Estimated GFR 62, Est GFR ( Amer) 76, Glucose 78 D, Calcium 7.4 L, Phosphorus 4.3, Magnesium 1.5 L D, Total Bilirubin 0.5, AST 28 D, ALT 15 D, Alkaline Phosphatase 89, Total Protein 6.6, Albumin 3.3 L D, Globulin 3.3 H, Albumin/Globulin Ratio 1.0 L I & O for Labs for Last 24 Hours: Intake & Output 11/16/24 11/17/24 11/18/24 11/19/24 23:59 23:59 23:59 23:59 Intake Total 750 / 750 Output Total 300 / 300 Balance 450 / 450 Weight 60.827 kg 62.188 kg Constitutional: Present mild distress, average body habitus, chronically ill appearing and cooperative Head: Present atraumatic and normocephalic Respiratory: Present normal respiratory effort; Absent rhonchi, wheezes or crackles Cardiac: Present Reg Rate and Rhythm GI: Present soft, tenderness (Diffuse, nonfocal), guarding and normal bowel sounds; Absent distention or rebound Extremities: Present normal inspection and full ROM Skin: Present intact; Absent erythema Neuro: Present Grossly Intact, alert, awake, oriented x 3 and moves all extremities Assessment and Plan *Assessment and plan (1) Hypomagnesemia: Status: Acute Category: Medical Code(s): E83.42 - Hypomagnesemia (2) History of pulmonary embolism: Status: Acute Category: Medical Code(s): Z86.711 - Personal history of pulmonary embolism (3) Colostomy in place: Status: Acute Category: Medical Code(s): Z93.3 - Colostomy status (4) Anemia: Status: Acute Qualifiers: Anemia type: unspecified type Qualified Code(s): D64.9 - Anemia, unspecified Category: Medical Code(s): D64.9 - Anemia, unspecified (5) CAD (coronary artery disease): Status: Chronic Qualifiers: Associated angina: without angina Coronary Disease-Associated Artery/Lesion type: [place] artery [place] vs. transplanted heart: [place] heart Qualified Code(s): I25.10 - Atherosclerotic heart disease of [place] coronary artery without angina pectoris Category: Medical Code(s): I25.10 - Atherosclerotic heart disease of [place] coronary artery without angina pectoris (6) HTN (hypertension): Status: Chronic Qualifiers: Hypertension type: essential hypertension Qualified Code(s): I10 - Essential (primary) hypertension Category: Medical Code(s): I10 - Essential (primary) hypertension (7) Decreased oral intake: Status: Acute Category: Medical Code(s): R63.8 - Other symptoms and signs concerning food and fluid intake (8) Aortic thrombus: Status: Acute Category: Medical Code(s): I74.10 - Embolism and thrombosis of unspecified parts of aorta Plan 89-year-old female admitted for inability to tolerate p.o. for multiple days. Found to have multiple severe electrolyte abnormalities. Additionally CTA demonstrated a mural thrombus without dissection, she has intact neurovascular lower extremities. Improved nausea today. Continue to advance diet. Aggressively replacing electrolytes. Continues to require inpatient management. Problems addressed as follows: Severe electrolyte disturbances Intractable nausea and vomiting - Potassium improving today 3.2, magnesium 1.5, phosphorus 4.3. Continue replace aggressively per protocol. Kidney function normal with BUN 15, creatinine 0.9 - No nausea and vomiting today. Continue Zofran as needed every 6 hours IV - Repeat CBC, CMP, magnesium ordered for the morning. Aortic mural thrombus -Tension - Neurovascularly intact, currently managing with Lovenox 1 mg/kg twice daily -Per my review of CT, has thrombus but I do not appreciate dissection. -Cardiology consulted, appreciate their recommendations. Recommend MRA abdomen to evaluate in more detail for dissection -Recommending lower extremity venous duplex to rule out DVT due to leg pain consistent with previous DVT - Echo obtained showing normal EF of 60%. Normal global function Mood disorder: Continue Wellbutrin 150 milligrams twice daily Neuropathy: Continue gabapentin 100 mg twice daily Hypothyroid: Continue levothyroxine 50 mcg daily GERD: Continue pantoprazole 40 mg twice daily Continue tizanidine 4 mg 3 times a day as needed for restless leg along with ropinirole 0.5 mg nightly Continue Crestor 20 mg nightly Full code Therapeutic Lovenox Advance diet as tolerated
--- NOTE | 2024-11-19 15:47 | CA_ITS ---
FINAL REPORT TECHNIQUE: Ultrasound images of the deep venous system were obtained from the left groin to the calf veins. CLINICAL HISTORY: Left leg pain. Hx- previous dvt 23 years ago FINDINGS: The deep venous system is normally compressible. Normal flow is identified. IMPRESSION: No evidence of left lower extremity DVT. Reviewed, Interpreted and Dictated by Michael Avery MD Transcribed by Maddie Zimmerman Authenticated and [facility]
--- NOTE | 2024-11-19 15:47 | EXP.CARD.CON ---
History of Present Illness History of Present Illness Consult date: 11/19/24 Chief complaint: Nausea vomiting, abdominal pain and left lower extremity pain History of present illness: This is a 69-year-old white female who presented to the emergency department with complaints of nausea and vomiting. She states that this started abruptly at 9 AM on the morning of admission. She states that it was intractable and she was unable to keep down any oral intake because of her nausea and vomiting. She states that she had abdominal pressure in her bilateral upper quadrants associated with the nausea and vomiting. She also reports having pain in her left lower extremity. She states that this was new yesterday as well. She states that it started abruptly as well and is an aching pain throughout her whole entire leg. She does report a history of a DVT in the left lower extremity and the pain feels pretty similar to that. The patient does have a history of a total colectomy with ostomy and had recently undergone a reoperation at the [facility] for presumed bowel obstruction. No records of this are available for review. She denies any chest pain or pressure. She does report having some shortness of breath intermittently at times with exertion. It improves with rest. No lower extremity edema. No fever, chills or diarrhea noted. Cardiology was consulted for CTA of the abdomen showing an aortic mural thrombus without aneurysm. Cannot exclude dissection with thrombosed false lumen versus a mural thrombus. [facility] Disclaimer: The information contained in this section may have been updated after the patient was seen, as this information can be updated by other users. Medical History (Updated 11/19/24 @ 15:52 by Leatha Turcios APRN) Nausea and vomiting History of DVT (deep vein thrombosis) Left leg pain Hypocalcemia Hypomagnesemia Hypokalemia Fall Fracture of first metatarsal bone of left foot Fracture of left foot Blood pressure instability Pericardial effusion Urethritis YAJAIRA (acute kidney injury) Gastroenteritis Seasonal allergies Pulmonary embolism Chest pain Pleural effusion Hypotension UTI (urinary tract infection), bacterial Ileus, unspecified Urinary tract infection Acute urinary retention Hyperkalemia YAJAIRA (acute kidney injury) Acute abdomen Sepsis Altered mental status Almazan catheter problem Urine incontinence Cellulitis Diastolic dysfunction Encounter for pre-operative cardiovascular clearance Renal insufficiency Shoulder pain History of pulmonary embolism COPD mixed type Thrombosis Hemorrhoids Cataract Hypokalemia Claudication Pleural effusion, left Stopped smoking with greater than 30 pack year history Dyspnea on exertion Edema HHD (hypertensive heart disease) Elevated left ventricular end-diastolic pressure (LVEDP) CAD (coronary artery disease) Numbness Coronary artery calcification seen on CT scan COPD (chronic obstructive pulmonary disease) Tobacco abuse PRAKASH on CPAP SOB (shortness of breath) HTN (hypertension) Vitamin D deficiency (~11/21/17) Hyperlipidemia (~11/21/17) Surgical History History of carpal tunnel release History of cholecystectomy H/O: hysterectomy History of intestinal surgery Family History Other No significant family history Social History (Updated 11/18/24 @ 23:17 by Sophie Munoz RN) Smoking Status: Never smoker years smoked: 45 smoking status stop date: 2017 second hand exposure: Yes alcohol intake: never substance use type: marijuana current occupational status: other Travel in the last 8 weeks?: None household members: spouse housing: house current occupational exposures/hazards: No caffeine: No Have you lived/traveled outside [place] in past 30 days?: No Contact w/someone who lives/traveled outside US past 30 days?: No Exposure to someone with infectious disease in past 14 days?: No Do you have a fever (greater than 100.4 F or 38 C)?: No Have you tested positive for COVID-19?: No Exposed to someone with COVID-19 in past 14 days?: No Do you have a sore throat?: No Do you have a cough?: No Do you have any weakness?: No Are you experiencing any nausea/vomitting?: No Do you have any diarrhea?: No Are you experiencing any unusual bleeding?: No Do you have any muscle aches/pain?: No Do you have any abdominal pain?: No Are you experiencing loss of taste or smell?: No Review of Systems Review of Systems Review of systems:: pertinent systems reviewed and negative unless documented below Constitutional Constitutional: Reports system reviewed and no additional complaints, except as documented, Reports fatigue and Reports lethargy Eyes Eyes: Reports system reviewed and no additional complaints, except as documented ENT Ears, Nose, Mouth, and Throat: Reports system reviewed and no additional complaints, except as documented *Cardiovascular Cardiovascular: Reports system reviewed and no additional complaints, except as documented, Denies chest pain and Reports dyspnea on exertion *Respiratory Respiratory: Reports system reviewed and no additional complaints, except as documented and Reports dyspnea on exertion *Gastrointestinal Gastrointestinal: Reports system reviewed and no additional complaints, except as documented and Reports abdominal pain (Bilateral upper quadrants) *Genitourinary Genitourinary: Reports system reviewed and no additional complaints, except as documented *Musculoskeletal Musculoskeletal: Reports system reviewed and no additional complaints, except as documented and Reports other (Left leg pain) Integumentary/Breasts Skin/Breast: Reports system reviewed and no additional complaints, except as documented *Neurologic Neurologic: Reports system reviewed and no additional complaints, except as documented Psychiatric Psychiatric: Reports system reviewed and no additional complaints, except as documented Endocrine Endocrine: Reports system reviewed and no additional complaints, except as documented and Reports fatigue Hematologic/Lymphatic Hematologic/Lymphatic: Reports system reviewed and no additional complaints, except as documented Allergic/Immunologic Allergic/Immunologic: Reports system reviewed and no additional complaints, except as documented Exam Data for Last 24 hours Vital signs and Labs for Last 24 Hours: Temp Pulse Resp BP Pulse Ox O2 Del Method 97.9 F 70 19 133/71 97 Room Air 11/19/24 11:35 11/19/24 12:00 11/19/24 11:35 11/19/24 11:35 11/19/24 11:35 11/19/24 14:28 Laboratory Results - last 24 hr 11/18/24 16:44: Total Creatine Kinase 65 11/18/24 18:44: Sodium 142, Potassium 3.9, Chloride 108 H, Carbon Dioxide 20 L, Anion Gap 17.9 H, BUN 15, Creatinine 0.90, Estimated Creat Clear 53, Estimated GFR 62, Est GFR ( Amer) 76, Glucose 146 H, Calcium 7.2 L, Magnesium < 0.2 L, Total Bilirubin 0.8, AST 41 H, ALT 24, Alkaline Phosphatase 65, Total Protein 8.6 H D, Albumin 4.1, Globulin 4.5 H, Albumin/Globulin Ratio 0.9 L, Lipase 64, Procalcitonin 0.052 11/18/24 19:45: WBC 6.3, RBC 4.40, Hgb 11.6 L, Hct 35.6 L, MCV 80.9 L, MCH 26.4 L, MCHC 32.6, RDW 15.8, Plt Count 181, MPV 10.1, Neut % (Auto) 80.5 H, Lymph % (Auto) 11.8, [place] % (Auto) 6.0, Eos % (Auto) 0.3, Baso % (Auto) 0.6, Neut # (Auto) 5.1, Lymph # (Auto) 0.8, [place] # (Auto) 0.4, Eos # (Auto) 0.0, Baso # (Auto) 0.0, Lactate 1.6 11/18/24 22:40: Lactate 0.8 11/19/24 05:24: WBC 5.1, RBC 3.84 L, Hgb 10.4 L D, Hct 32.2 L, MCV 83.9, MCH 26.8 L, MCHC 32.0, RDW 16.1, Plt Count 139 L, MPV 10.7 H, Neut % (Auto) 56.4, Lymph % (Auto) 27.9, [place] % (Auto) 13.1 H, Eos % (Auto) 1.0, Baso % (Auto) 1.0, Neut # (Auto) 2.9, Lymph # (Auto) 1.4, [place] # (Auto) 0.7, Eos # (Auto) 0.1, Baso # (Auto) 0.1, Sodium 139, Potassium 3.2 L, Chloride 108 H, Carbon Dioxide 19 L, Anion Gap 15.2 H, BUN 15, Creatinine 0.90, Estimated Creat Clear 54, Estimated GFR 62, Est GFR ( Amer) 76, Glucose 78 D, Calcium 7.4 L, Phosphorus 4.3, Magnesium 1.5 L D, Total Bilirubin 0.5, AST 28 D, ALT 15 D, Alkaline Phosphatase 89, Total Protein 6.6, Albumin 3.3 L D, Globulin 3.3 H, Albumin/Globulin Ratio 1.0 L I & O for Last 24 hours: Intake & Output 11/16/24 11/17/24 11/18/24 11/19/24 23:59 23:59 23:59 23:59 Intake Total 750 / 750 Output Total 300 / 300 Balance 450 / 450 Weight 134 lb 1.6 oz 137 lb 1.6 oz Constitutional Constitutional: no acute distress and average body habitus *Routine HEENT Exam Head: Present normocephalic and atraumatic ENT: Present mucous membranes moist *Routine Neck Exam Neck: Present supple, full ROM and normal carotid upstroke; Absent JVD, carotid bruit or lymphadenopathy *Routine Respiratory Exam Respiratory: Present CTA bilaterally, normal respiratory effort, able to speak in complete sentences and symmetric chest movement *Routine Cardiovascular Exam Cardiovascular: Present RRR, Normal S1 and Normal S2; Absent murmur or gallop *Routine Abdominal Exam Abdominal: Present soft and normoactive bowel sounds; Absent tenderness, distended or organomegaly *Routine Extremities Exam Extremities: Present full ROM, pulses intact and normal capillary refill; Absent cyanosis, clubbing or edema *Routine Skin Exam Skin: Present intact and warm; Absent erythema *Routine Neurological Exam Neurological: Present alert, oriented X3 and CN II-XII intact; Absent sensory deficit or motor deficit Routine Psychiatric Exam Psychiatric: Present normal affect Meds Home Medications and Allergies Home Medications ?Medication ?Instructions ?Recorded ?Confirmed ?Type multivitamin 1 tab PO DAILY 09/23/23 11/19/24 History methenamine hippurate 1 gram tablet 1 g PO BID 11/27/23 11/19/24 History ropinirole 0.5 mg tablet 0.5 mg PO HS #30 tabs 06/15/24 11/19/24 Rx potassium chloride 20 mEq 20 meq PO DAILY 08/20/24 11/19/24 History tablet,extended release(part/cryst) glycopyrrolate 9 mcg-formoterol 2 puff inhalation BID 90 days 10/12/24 11/19/24 Rx 4.8 mcg HFA aerosol inhaler #10.7 grams (Bevespi Aerosphere) gabapentin 100 mg capsule 100 mg PO BID #60 caps 10/21/24 11/19/24 Rx levothyroxine 50 mcg tablet 50 mcg PO DAILY #90 tabs 10/21/24 11/19/24 Rx pantoprazole 40 mg tablet,delayed 40 mg PO BID #180 tabs 10/21/24 11/19/24 Rx release albuterol sulfate 90 mcg/actuation 2 puff inhalation QIDP PRN 11/19/24 11/19/24 History aerosol inhaler Shortness Of Breath Or Wheezing alendronate 70 mg tablet 70 mg PO WEEKLY 11/19/24 11/19/24 History bupropion HCl 75 mg tablet 150 mg PO 0600,1200 11/19/24 11/19/24 History ergocalciferol (vitamin D2) 1,250 1,250 mcg PO WEEKLY 11/19/24 11/19/24 History mcg (50,000 unit) capsule oxycodone-acetaminophen 5 mg-325 1 tab PO Q8HP PRN Moderate Pain 11/19/24 11/19/24 History mg tablet (Percocet) (Scale Score 5-6) rosuvastatin 20 mg tablet 20 mg PO HS 11/19/24 11/19/24 History tizanidine 4 mg tablet (Zanaflex) 4 mg PO TIDP PRN muscle spasms 11/19/24 11/19/24 History trazodone 100 mg tablet 100 - 200 mg PO HS 11/19/24 11/19/24 History New Prescriptions to Start Prescriptions: Allergies Allergy/AdvReac Type Severity Reaction Status Date / Time codeine Allergy Intermediate I-HIVES Verified 11/13/24 11:25 sulfamethoxazole (From Allergy Intermediate I-HIVES Verified 11/13/24 11:25 Sept) trimethoprim (From ) Allergy Intermediate I-HIVES Verified 11/13/24 11:25 ibuprofen (IBUPROFEN) Allergy Unknown VOMITING Verified 11/13/24 11:25 Assessment and Plan *Assessment and plan (1) Aortic thrombus: Status: Acute Category: Medical Code(s): I74.10 - Embolism and thrombosis of unspecified parts of aorta (2) Decreased oral intake: Status: Acute Category: Medical Code(s): R63.8 - Other symptoms and signs concerning food and fluid intake (3) CAD (coronary artery disease): Status: Chronic Qualifiers: Associated angina: without angina Coronary Disease-Associated Artery/Lesion type: [place] artery [place] vs. transplanted heart: [place] heart Qualified Code(s): I25.10 - Atherosclerotic heart disease of [place] coronary artery without angina pectoris Category: Medical Code(s): I25.10 - Atherosclerotic heart disease of [place] coronary artery without angina pectoris (4) HTN (hypertension): Status: Chronic Qualifiers: Hypertension type: essential hypertension Qualified Code(s): I10 - Essential (primary) hypertension Category: Medical Code(s): I10 - Essential (primary) hypertension (5) Hyperlipidemia: Status: Chronic Qualifiers: Hyperlipidemia type: mixed hyperlipidemia Qualified Code(s): E78.2 - Mixed hyperlipidemia Category: Medical Code(s): E78.5 - Hyperlipidemia, unspecified (6) Left leg pain: Status: Acute Category: Medical Code(s): M79.605 - Pain in left leg (7) History of DVT (deep vein thrombosis): Status: Acute Category: Medical Code(s): Z86.718 - Personal history of other venous thrombosis and embolism (8) Nausea and vomiting: Status: Acute Qualifiers: Vomiting type: unspecified Qualified Code(s): R11.2 - Nausea with vomiting, unspecified Category: Medical Code(s): R11.2 - Nausea with vomiting, unspecified Plan Plan: 1. The patient was admitted to the hospital with nausea vomiting and abdominal pain as well as left lower extremity pain. The patient was found to have an aortic mural thrombus. Could not rule out dissection with a false lumen versus a mural thrombus. Treatment for a dissection versus a mural thrombus are different. Need further evaluation to see if this is a dissection or a mural thrombus. Recommend an MRA of the abdomen and chest. We did discuss this with Dr. Brady and he is going to order the MRA. 2. The patient is complaining of left lower extremity pain. She states that this feels similar to when she had a DVT in the past. Will get a left lower extremity venous duplex to rule out DVT. 3. The patient does have a history of coronary artery disease. She denies any chest pain or pressure. No plans for invasive left cardiac catheterization at this time. 4. Her blood pressure is well-controlled. 5. Her LDL goal is less than 55. Will get a lipid panel in the morning. She is on a statin. 6. Further recommendations will be made pending the patient's response to treatment and the results of her MRA of the abdomen/chest and venous duplex . Thank you for the opportunity to help participate in the care of this patient. All recommendations and orders are per Dr. Khanna.
--- NOTE | 2024-11-19 18:11 | PC.NURSE ---
Aox4, up with assistance times one, Right side colostomy, on RA, midline with abd dressing, npo now MRI abd ordered.
[2024-11-19] MEDS: PANTOPRAZOLE 40MG TABLET 40 MG PO (20:12)
[2024-11-19] MEDS: GABAPENTIN 100MG CAPSULE 100 MG PO (20:12)
[2024-11-19] MEDS: ROPINIROLE 1MG TABLET 0.5 MG PO (20:13)
[2024-11-19] MEDS: TRAZODONE 50MG TABLET 200 MG PO (21:20)
[2024-11-20] VITALS: BP 120/70; PULSE 75; PULSE 80; RESP 20; TEMP 36.5; O2SAT 92
--- NOTE | 2024-11-20 03:45 | PC.NURSE ---
Patient is alert and oriented x4. She was observed to have eyes closed, respirations even and unlabored on room air, and no apparent distress throughout the majority of the night. Upon initial assessment yesterday evening, the patient appeared to be quite anxious and upset due to reported concerns about contacting her , as well as her ongoing plan of care. Nursing staff provided reassurance and comfort to calm the patient during this time. Patient was later allowed to have a bedtime snack this shift, OK'd by Dinesh Mak MD. He requested to have her return to being NPO at midnight pending MRI scheduled for today. MRI schedule was also confirmed earlier this shift with Radiology. Bedtime snacks were given and tolerated very well. She has not had any complaints of nausea/vomiting this shift. Patient has had complaints of generalized pain + ongoing left leg pain. Percocet was administered per AUG for pain relief with satisfactory outcomes. Scheduled medications administered as appropriately per AUG. Trazodone order restarted by Dinesh Mak MD and given for sleep aid per patient request this shift. Auscultation of her heart, lungs (clear but diminished), and bowels were within normal findings. Normal sinus rhythm on telemetry. Ostomy located in right abdominal quadrant; patient self-empties her ostomy bag with assistance as needed. Liquid consistency of stool noted. She has been ambulating with standby assistance to the bathroom for elimination needs. Midline abdominal incision dressing remains clean, dry, and intact thus far. At this time, the patient is resting in bed without any further complaints. No new needs thus far. Call light within reach.
[2024-11-20 03:51] VITALS: BP 119/77; PULSE 75; RESP 15; TEMP 36.9; O2SAT 92
[2024-11-20 04:00] VITALS: PULSE 70; BMI 24.9
[2024-11-20 06:16] LABS: Basophils # 0.1 K/mm3 (0-0.2); Basophils % 1.2 % (0.1-2.0); Eosinophils # 0.4 Kmm3 (0.0-0.4); Eosinophils % 7.1 % (0.1-12.0); Hematocrit 31.6 % (37.0-47.0); Hemoglobin 10.4 g/dL (12.2-16.2); Immature Granulocytes # 0.02 10^3uL; Immature Granulocytes % 0.4 %; Lymphocytes % 19.4 % (10-50); Mean Corpuscular HGB Conc 32.9 g/dL (31.8-35.4); Mean Corpuscular Hemoglobin 27.2 pg (27.0-31.2); Mean Corpuscular Volume 82.5 fl (81-99); Mean Platelet Volume 10.9 fl (7.4-10.4); Monocytes # 0.7 K/mm3 (0.1-1.0); Monocytes % 12.7 % (1.7-9.3); Neutrophils # 3.1 K/mm3 (1.8-7.8); Neutrophils % 59.2 % (37.0-80.0); Nucleated Red Blood Cells # 0 10^3/uL; Nucleated Red Blood Cells % 0 %; Platelet Count 185 K/mm3 (142-424); Red Blood Count 3.83 M/mm3 (4.20-5.40); Red Cell Distribution Width 16.2 % (11.5-17.5); Red Cell Distribution Width-SD 48.5 fL; White Blood Count 5.2 K/mm3 (4.8-10.8)
[2024-11-20] MEDS: LEVOTHYROXINE 50MCG (0.05MG) TAB 50 MCG PO (06:30)
[2024-11-20 06:31] LABS: Alanine Aminotransferase 13 U/L (12-78); Albumin Level 3.3 g/dl (3.5-5.0); Alkaline Phosphatase 96 U/L (38-126); Anion Gap 9.3 mEq/L (5-15); Aspartate Amino Transferase 31 U/L (14-36); Bilirubin,Direct 0.3 mg/dl (0.0-0.4); Bilirubin,Indirect 0.2 mg/dL (0.0-0.9); Bilirubin,Total 0.5 mg/dl (0.2-1.3); Bilirubin,Unconjugated 0.2 mg/dL (0.0-1.1); Blood Urea Nitrogen 16 mg/dl (7-17); Calcium 7.8 mg/dl (8.4-10.2); Carbon Dioxide 22 mmol/L (22.0-30.0); Chloride 111 mmol/L (98-107); Chol/HDL Ratio 2.7 (1-3.5); Cholesterol 101 mg/dl (140-200); Creatinine Clearance Estimated 55 mL/min (50-200); Estimated Glomerular Filt Rate 55 ml/min (>60); GFR (African American) 67 ML/MIN (>60); Glucose 85 mg/dl (74-100); HDL Cholesterol 38 mg/dl (40-60); Potassium 4.3 mmoL/L (3.5-5.1); Sodium 138 mmol/L (136-145); Total Protein,Serum 6.8 g/dl (6.3-8.2); Triglycerides 141 mg/dl (30-150); VLDL Cholesterol 28 mg/dL (0-40)
[2024-11-20 06:42] LABS: Direct LDL Cholesterol 37.93 mg/dL (100-129)
[2024-11-20 07:44] LABS: Magnesium 2.2 mg/dl (1.6-2.3)
[2024-11-20 08:00] VITALS: BP 146/75; PULSE 74; PULSE 80; RESP 16; TEMP 37; O2SAT 93
--- NOTE | 2024-11-20 08:00 | MR_ITS ---
FINAL REPORT TECHNIQUE: MR images of the abdomen and pelvis with special attention to the aorta and iliac vessels was performed both before and after the administration of intravenous contrast. CLINICAL HISTORY: abnormal ct scan. eval for dissection COMPARISON: None FINDINGS: This exam was performed to better characterize the CT abnormality seen in the thoracic and abdominal aorta on a CT a performed 11/18/2024. Comparison to prior CTs of the chest reveal that this abnormality of the thoracic aorta is new since the prior CT of 12/05/2022. All of the MR scans demonstrate the lobular abnormal signal involving the mid and lower descending thoracic aorta, generally similar in appearance to that seen on the CTA. The CTA of 11/18/2024 shows small internal calcifications deep to the lobular filling defect, which would indicate mural thrombosis is more likely than dissection. Also seen on the CTA, at the superior edge of the mural abnormal signal, the intercostal artery appears to cross through the area of abnormal signal, as seen on image #13 of series 5, which would also suggest mural thrombus. There is no evidence of flow within this lobular abnormal signal on any of the sequences, suggesting that this does not represent a false lumen. The celiac, SMA, and JACOBO are widely patent. Single renal arteries are noted bilaterally, which are also patent. There is a linear defect in the distal left common iliac artery, which on CTA appears to represent a small focal area of dissection. IMPRESSION: MRI with and without contrast is not definitive in determining the etiology of this abnormal signal in the descending thoracic aorta, would favor mural thrombus rather than dissection. However, further investigation is likely warranted, and would suggest cardiology consult and transesophageal echocardiographic exam to further investigate. Reviewed, Interpreted and Dictated by Michael Avery MD Transcribed by Micheline Cohn Authenticated and [facility]
--- NOTE | 2024-11-20 08:53 | P.PN_ITS ---
Subjective Subjective Date: 11/20/24 Time: 08:00 Principal diagnosis: mural thrombus Interval history: This is a 69-year-old white female who presented to the emergency department for nausea and vomiting. She does have a history of colectomy with ostomy. She recently has undergone reoperation at the [facility] for presumed bowel obstruction. No records to review today. CTA of the abdomen and chest showed an aortic mural thrombus without aneurysm. Cannot exclude dissection with thrombosed false lumen versus a mural thrombus. The patient is currently awaiting MRI of the abdomen for further evaluation of the aortic mural thrombus. This morning she denies any chest pain or pressure. She denies any shortness of breath or edema. She denies any fever, chills, nausea, vomiting or diarrhea. Exam Data for Last 24 hours Vital signs and Labs for Last 24 Hours: Temp Pulse Resp BP Pulse Ox O2 Del Method 98.6 F 74 16 146/75 H 93 L Room Air 11/20/24 08:00 11/20/24 08:00 11/20/24 08:00 11/20/24 08:00 11/20/24 08:00 11/20/24 08:00 Laboratory Results - last 24 hr 11/20/24 05:17: WBC 5.2, RBC 3.83 L, Hgb 10.4 L, Hct 31.6 L, MCV 82.5, MCH 27.2, MCHC 32.9, RDW 16.2, Plt Count 185 D, MPV 10.9 H, Neut % (Auto) 59.2, Lymph % (Auto) 19.4, [place] % (Auto) 12.7 H, Eos % (Auto) 7.1, Baso % (Auto) 1.2, Neut # (Auto) 3.1, Lymph # (Auto) 1.0, [place] # (Auto) 0.7, Eos # (Auto) 0.4, Baso # (Auto) 0.1, Sodium 138, Potassium 4.3 D, Chloride 111 H, Carbon Dioxide 22, Anion Gap 9.3, BUN 16, Creatinine 1.00, Estimated Creat Clear 55, Estimated GFR 55 L, Est GFR ( Amer) 67, Glucose 85, Calcium 7.8 L, Magnesium 2.2 D, Total Bilirubin 0.5, Direct Bilirubin 0.3, Conjugated Bilirubin 0.0, Indirect Bilirubin 0.2, Unconjugated Bilirubin 0.2, AST 31, ALT 13, Alkaline Phosphatase 96, Total Protein 6.8, Albumin 3.3 L, Triglycerides 141, Cholesterol 101 L, LDL Cholesterol Direct 37.93 L, VLDL Cholesterol 28, HDL Cholesterol 38 L, Cholesterol/HDL Ratio 2.7 I & O for Last 24 hours: Intake & Output 11/17/24 11/18/24 11/19/24 11/20/24 23:59 23:59 23:59 23:59 Intake Total 750 / 1100 350 / 350 Output Total 300 / 300 0 / 0 Balance 450 / 800 350 / 350 Weight 134 lb 1.6 oz 137 lb 1.6 oz 140 lb 11.2 oz Constitutional Constitutional: no acute distress and average body habitus *Routine HEENT Exam Head: Present normocephalic and atraumatic ENT: Present mucous membranes moist *Routine Neck Exam Neck: Present supple, full ROM and normal carotid upstroke; Absent JVD, carotid bruit or lymphadenopathy *Routine Respiratory Exam Respiratory: Present CTA bilaterally, normal respiratory effort, able to speak in complete sentences and symmetric chest movement *Routine Cardiovascular Exam Cardiovascular: Present RRR, Normal S1 and Normal S2; Absent murmur or gallop *Routine Abdominal Exam Abdominal: Present soft, normoactive bowel sounds and ostomy; Absent tenderness, distended or organomegaly *Routine Extremities Exam Extremities: Present full ROM, pulses intact and normal capillary refill; Absent cyanosis, clubbing or edema *Routine Skin Exam Skin: Present intact and warm; Absent erythema *Routine Neurological Exam Neurological: Present alert, oriented X3 and CN II-XII intact; Absent sensory deficit or motor deficit Routine Psychiatric Exam Psychiatric: Present normal affect Progress Note: A&P Assessment and plan (1) Aortic thrombus: Status: Acute (2) CAD (coronary artery disease): Status: Chronic (3) HTN (hypertension): Status: Chronic (4) Hypomagnesemia: Status: Acute (5) History of pulmonary embolism: Status: Acute (6) Colostomy in place: Status: Acute (7) Anemia: Status: Acute (8) Decreased oral intake: Status: Acute (9) Hyperlipidemia: Status: Chronic (10) Left leg pain: Status: Acute Assessment and Plan Assessment and Plan for All Diagnoses:: Plan: 1. The patient was admitted to the hospital with nausea vomiting and abdominal pain as well as left lower extremity pain. The patient was found to have an aortic mural thrombus. Could not rule out dissection with a false lumen versus a mural thrombus. Treatment for a dissection versus a mural thrombus are different. Need further evaluation to see if this is a dissection or a mural thrombus. Still waiting for patient to have MRI of the abdomen for further evaluation of the aortic mural thrombus. 2. The patient is complaining of left lower extremity pain. She states that this feels similar to when she had a DVT in the past. Left lower extremity venous duplex is currently pending. 3. The patient does have a history of coronary artery disease. She denies any chest pain or pressure. No plans for invasive left cardiac catheterization at this time. 4. Her blood pressure is well-controlled. 5. Her LDL goal is less than 55. Will get a lipid panel in the morning. She is on a statin. 6. Echocardiogram shows normal ejection fraction with no wall motion abnormalities. 7. Further recommendations will be made pending the patient's response to treatment and the results of her MRA of the abdomen/chest and venous duplex. If the patient has a chronic mural thrombus then she will need to be anticoagulated with Eliquis. If this is a dissection then she will need to be transferred to a tertiary care facility. Thank you for the opportunity to help participate in the care of this patient. All recommendations and orders are per Dr. Khanna.
[2024-11-20] MEDS: GABAPENTIN 100MG CAPSULE 100 MG PO (08:57)
[2024-11-20] MEDS: OXYCODONE 5MG W/APAP 325MG TABLET 1 EACH PO (08:57)
--- NOTE | 2024-11-20 09:23 | PC.WOUNDNOTE ---
Abdomen with ostomy and healing Midline incision Abdomen with ostomy and healing midline incision
--- NOTE | 2024-11-20 12:05 | EXP.DC.SUM ---
General Admission date:: 11/18/24 Discharge date: 11/20/24 HPI HPI HPI: Patient presents via EMS for intractable nausea vomiting abdominal pain and left lower extremity pain. Patient states that she had abrupt onset of vomiting since 9 this morning. She has not been able to tolerate any oral intake. Patient does have a history of a total colectomy with ostomy and most recently had a reoperation at the [facility] for presumed bowel obstruction although I do not have her records currently. Patient states that she has not had any ostomy output or passing flatus through her ostomy today. She states that she has left-sided abdominal pain but denies fever chills hemoptysis hematochezia melena nausea vomiting diarrhea. Patient states that her left lower extremity started cramping this afternoon severely. She states it feels similar to when she had a blood clot before. Currently she denies chest pain shortness of breath fever chills hemoptysis hematochezia melena hematemesis hematuria. Hospitalist contacted due to multiple electrolyte abnormalities present on laboratory evaluation. There is also an NSTEMI. CTA aorta and distal runoff demonstrates large mural thrombus in the thoracic descending aorta in addition to the distal infrarenal aorta. Other than her abdominal issues described above she has no other active issues or complaints Hospital Course Hospital Course Hospital Course: 89-year-old female admitted for inability to tolerate p.o. for multiple days. Found to have multiple severe electrolyte abnormalities. Additionally CTA demonstrated a mural thrombus without dissection, she has intact neurovascular lower extremities. Nausea improved. Able to advance diet. Patient doing well with no further emesis. MRI obtained showing no active dissection. Needs repeat imaging in the coming days for stability. Cardiology consulted and assisting with care. Plan to discharge home with outpatient follow-up with cardiology. Overall doing well. Problems addressed as follows: Severe electrolyte disturbances Intractable nausea and vomiting - Significant electrolyte disturbances on admission. Showed improvement with replacement. On day of discharge, calcium 7.8, magnesium 2.2, potassium 4.3. Kidney function normal at 16 and 1.0 for BUN and creatinine respectively. No further nausea or vomiting. Tolerating p.o. intake. Patient actually upset that she has not been able to eat the way she wants due to being n.p.o. intermittently for different imaging studies to evaluate for possible aortic dissection. Given her resolution of nausea and vomiting and normalization of electrolytes, stable to discharge home with follow-up as an outpatient. Aortic mural thrombus -Tension - Neurovascularly intact on initial exam. CTA of abdomen showed thrombus but did not appreciate dissection. Cardiology was consulted to assist with care. Recommended MRI of abdomen to evaluate for more detail. MRA did not show dissection. Thrombus appears stable. Unclear the exact age. At this time however will initiate Eliquis 5 mg twice daily. Echo obtained showing normal EF of 60% with normal global function. Lower extremity duplex did not show DVTs. Plan to follow-up with cardiology as an outpatient for further management of anticoagulation. Needs repeat CTA in the next week to monitor for stability. Mood disorder: Continue Wellbutrin 150 milligrams twice daily Neuropathy: Continue gabapentin 100 mg twice daily Hypothyroid: Continue levothyroxine 50 mcg daily GERD: Continue pantoprazole 40 mg twice daily Continue tizanidine 4 mg 3 times a day as needed for restless leg along with ropinirole 0.5 mg nightly Continue Crestor 20 mg nightly Total time spent on discharge 32 minutes in counseling, documentation, chart review, and direct care with patient. Exam Data for Last 24 hours Vital signs and Labs for Last 24 Hours: Temp Pulse Resp BP Pulse Ox O2 Del Method 98.6 F 74 16 146/75 H 93 L Room Air 11/20/24 08:00 11/20/24 08:00 11/20/24 08:00 11/20/24 08:00 11/20/24 08:00 11/20/24 08:00 Laboratory Results - last 24 hr 11/20/24 05:17: WBC 5.2, RBC 3.83 L, Hgb 10.4 L, Hct 31.6 L, MCV 82.5, MCH 27.2, MCHC 32.9, RDW 16.2, Plt Count 185 D, MPV 10.9 H, Neut % (Auto) 59.2, Lymph % (Auto) 19.4, Anderson % (Auto) 12.7 H, Eos % (Auto) 7.1, Baso % (Auto) 1.2, Neut # (Auto) 3.1, Lymph # (Auto) 1.0, Anderson # (Auto) 0.7, Eos # (Auto) 0.4, Baso # (Auto) 0.1, Sodium 138, Potassium 4.3 D, Chloride 111 H, Carbon Dioxide 22, Anion Gap 9.3, BUN 16, Creatinine 1.00, Estimated Creat Clear 55, Estimated GFR 55 L, Est GFR ( Amer) 67, Glucose 85, Calcium 7.8 L, Magnesium 2.2 D, Total Bilirubin 0.5, Direct Bilirubin 0.3, Conjugated Bilirubin 0.0, Indirect Bilirubin 0.2, Unconjugated Bilirubin 0.2, AST 31, ALT 13, Alkaline Phosphatase 96, Total Protein 6.8, Albumin 3.3 L, Triglycerides 141, Cholesterol 101 L, LDL Cholesterol Direct 37.93 L, VLDL Cholesterol 28, HDL Cholesterol 38 L, Cholesterol/HDL Ratio 2.7 I & O for Last 24 hours: Intake & Output 11/17/24 11/18/24 11/19/24 11/20/24 23:59 23:59 23:59 23:59 Intake Total 750 / 1100 350 / 350 Output Total 300 / 300 0 / 0 Balance 450 / 800 350 / 350 Weight 60.827 kg 62.188 kg 63.82 kg Constitutional Constitutional: no acute distress, average body habitus, chronically ill appearing and agitated *Routine HEENT Exam Head: Present normocephalic Eye: Present EOMI and PERRL ENT: Present mucous membranes moist Comments: Edentulous *Routine Neck Exam Neck: Present supple; Absent lymphadenopathy *Routine Respiratory Exam Respiratory: Present CTA bilaterally and able to speak in complete sentences; Absent rhonchi, wheezes or crackles *Routine Cardiovascular Exam Cardiovascular: Present RRR *Routine Abdominal Exam Abdominal: Present soft and normoactive bowel sounds; Absent tenderness Comments: Ostomy site viable. *Routine Rectal Exam Patient deferred: visual exam *Routine Exam Patient deferred: external exam *Routine Extremities Exam Extremities: Absent cyanosis, clubbing or edema *Routine Skin Exam Skin: Present intact and warm; Absent rash *Routine Neurological Exam Neurological: Present alert, oriented X3 and moving all extremities; Absent altered mental status Results Data Completed and Pending Labs on day of discharge: Labs from last 24 hours 11/20/24 05:17 WBC 5.2 RBC 3.83 L Hgb 10.4 L Hct 31.6 L MCV 82.5 MCH 27.2 MCHC 32.9 RDW 16.2 Plt Count 185 D MPV 10.9 H Neut % (Auto) 59.2 Lymph % (Auto) 19.4 Anderson % (Auto) 12.7 H Eos % (Auto) 7.1 Baso % (Auto) 1.2 Neut # (Auto) 3.1 Lymph # (Auto) 1.0 Anderson # (Auto) 0.7 Eos # (Auto) 0.4 Baso # (Auto) 0.1 Sodium 138 Potassium 4.3 D Chloride 111 H Carbon Dioxide 22 Anion Gap 9.3 BUN 16 Creatinine 1.00 Estimated Creat Clear 55 Estimated GFR 55 L Est GFR ( Amer) 67 Glucose 85 Calcium 7.8 L Magnesium 2.2 D Total Bilirubin 0.5 Direct Bilirubin 0.3 Conjugated Bilirubin 0.0 Indirect Bilirubin 0.2 Unconjugated Bilirubin 0.2 AST 31 ALT 13 Alkaline Phosphatase 96 Total Protein 6.8 Albumin 3.3 L Triglycerides 141 Cholesterol 101 L LDL Cholesterol Direct 37.93 L VLDL Cholesterol 28 HDL Cholesterol 38 L Cholesterol/HDL Ratio 2.7 DS: Diagnosis Discharge Diagnosis (1) Aortic thrombus: Status: Acute Code(s): I74.10 - Embolism and thrombosis of unspecified parts of aorta (2) CAD (coronary artery disease): Status: Chronic Code(s): I25.10 - Atherosclerotic heart disease of [place] coronary artery without angina pectoris Qualifiers: Associated angina: without angina Coronary Disease-Associated Artery/Lesion type: [place] artery [place] vs. transplanted heart: [place] heart Qualified Code(s): I25.10 - Atherosclerotic heart disease of [place] coronary artery without angina pectoris (3) HTN (hypertension): Status: Chronic Code(s): I10 - Essential (primary) hypertension Qualifiers: Hypertension type: essential hypertension Qualified Code(s): I10 - Essential (primary) hypertension (4) Hypomagnesemia: Status: Acute Code(s): E83.42 - Hypomagnesemia (5) History of pulmonary embolism: Status: Acute Code(s): Z86.711 - Personal history of pulmonary embolism (6) Colostomy in place: Status: Acute Code(s): Z93.3 - Colostomy status (7) Anemia: Status: Acute Code(s): D64.9 - Anemia, unspecified Qualifiers: Anemia type: unspecified type Qualified Code(s): D64.9 - Anemia, unspecified (8) Decreased oral intake: Status: Acute Code(s): R63.8 - Other symptoms and signs concerning food and fluid intake (9) Hyperlipidemia: Status: Chronic Code(s): E78.5 - Hyperlipidemia, unspecified Qualifiers: Hyperlipidemia type: mixed hyperlipidemia Qualified Code(s): E78.2 - Mixed hyperlipidemia (10) Left leg pain: Status: Acute Code(s): M79.605 - Pain in left leg Meds Home Medications and Allergies Home Medications ?Medication ?Instructions ?Recorded ?Confirmed ?Type multivitamin 1 tab PO DAILY 09/23/23 11/19/24 History methenamine hippurate 1 gram tablet 1 g PO BID 11/27/23 11/19/24 History ropinirole 0.5 mg tablet 0.5 mg PO HS #30 tabs 06/15/24 11/19/24 Rx potassium chloride 20 mEq 20 meq PO DAILY 08/20/24 11/19/24 History tablet,extended release(part/cryst) glycopyrrolate 9 mcg-formoterol 2 puff inhalation BID 90 days 10/12/24 11/19/24 Rx 4.8 mcg HFA aerosol inhaler #10.7 grams (Bevespi Aerosphere) gabapentin 100 mg capsule 100 mg PO BID #60 caps 10/21/24 11/19/24 Rx levothyroxine 50 mcg tablet 50 mcg PO DAILY #90 tabs 10/21/24 11/19/24 Rx pantoprazole 40 mg tablet,delayed 40 mg PO BID #180 tabs 10/21/24 11/19/24 Rx release albuterol sulfate 90 mcg/actuation 2 puff inhalation QIDP PRN 11/19/24 11/19/24 History aerosol inhaler Shortness Of Breath Or Wheezing alendronate 70 mg tablet 70 mg PO WEEKLY 11/19/24 11/19/24 History bupropion HCl 75 mg tablet 150 mg PO 0600,1200 11/19/24 11/19/24 History ergocalciferol (vitamin D2) 1,250 1,250 mcg PO WEEKLY 11/19/24 11/19/24 History mcg (50,000 unit) capsule oxycodone-acetaminophen 5 mg-325 1 tab PO Q8HP PRN Moderate Pain 11/19/24 11/19/24 History mg tablet (Percocet) (Scale Score 5-6) rosuvastatin 20 mg tablet 20 mg PO HS 11/19/24 11/19/24 History tizanidine 4 mg tablet (Zanaflex) 4 mg PO TIDP PRN muscle spasms 11/19/24 11/19/24 History trazodone 100 mg tablet 100 - 200 mg PO HS 11/19/24 11/19/24 History apixaban 5 mg tablet (Eliquis) 5 mg PO BID #60 tabs 11/20/24 Rx New Prescriptions to Start Prescriptions: apixaban [Eliquis] Milo Brady Allergies Allergy/AdvReac Type Severity Reaction Status Date / Time codeine Allergy Intermediate I-HIVES Verified 11/13/24 11:25 sulfamethoxazole (From Allergy Intermediate I-HIVES Verified 11/13/24 11:25 Septra) trimethoprim (From ) Allergy Intermediate I-HIVES Verified 11/13/24 11:25 ibuprofen (IBUPROFEN) Allergy Unknown VOMITING Verified 11/13/24 11:25 Discharge Plan Disposition Patient Disposition: Home, Self-Care Condition: Fair Discharge Order Discharge Orders: Discharge Order (Routine); Ordered 11/20/24 Ordered By: Milo Brady Follow up Plan Follow up with: Leatha Turcios APRN [Nurse Practitioner, Cardiology] - 11/30/24 10:30 am Roman Medina MD [Primary Care Provider, Family Practice] - 12/03/24 8:20 am Prescriptions/Medication Reconciliation: New Eliquis 5 mg tablet 5 mg PO BID Qty: 60 1RF Continued methenamine hippurate 1 gram tablet 1 g PO BID Bevespi Aerosphere 9-4.8 mcg HFA aerosol inhaler 2 puff inhalation BID 90 Days Qty: 10.7 3RF pantoprazole 40 mg tablet,delayed release (DR/EC) 40 mg PO BID Qty: 180 1RF levothyroxine 50 mcg tablet 50 mcg PO DAILY Qty: 90 1RF gabapentin 100 mg capsule 100 mg PO BID Qty: 60 1RF multivitamin Tablet 1 tab PO DAILY ropinirole 0.5 mg tablet 0.5 mg PO HS Qty: 30 2RF potassium chloride 20 mEq tablet,ER particles/crystals 20 meq PO DAILY tizanidine [Zanaflex] 4 mg tablet 4 mg PO TIDP PRN (Reason: muscle spasms) alendronate 70 mg tablet 70 mg PO WEEKLY Rx Instructions: TAKE ONE TABLET BY MOUTH EVERY WEEK oxycodone-acetaminophen [Percocet] 5-325 mg tablet 1 tab PO Q8HP PRN (Reason: Moderate Pain (Scale Score 5-6)) trazodone 100 mg tablet 100 - 200 mg PO HS bupropion HCl 75 mg tablet 150 mg PO 0600,1200 ergocalciferol (vitamin D2) 1,250 mcg (50,000 unit) capsule 1,250 mcg PO WEEKLY albuterol sulfate 90 mcg/actuation HFA aerosol inhaler 2 puff inhalation QIDP PRN (Reason: Shortness Of Breath Or Wheezing) rosuvastatin 20 mg tablet 20 mg PO HS Other Ambulatory Orders: CT angio abdomen pelvis (Routine) Timeframe: 3 Days Facility[facility] - Location: Radiology Ordered By: Milo Brady Problem Reconciliation Problems Reviewed?: Yes Patient Discharge Instructions ACTIVITY: Continue current activity DIET: continue same diet Patient Instructions: Magnesium Print Language: Armenian Providers Primary Care Provider: Roman Medina Admit Provider: Elmer Mak Attending Provider: Elmer Mak
[2024-11-20] MEDS: 0.9 % SODIUM CHLORIDE 50 ML VIAL 62 ML IV (12:54)
[2024-11-20] MEDS: SODIUM CHLORIDE 0.9% 10ML SYR (RAD ONLY) 10 ML IV (12:54)
[2024-11-20] MEDS: GADOTERIDOL INJ 20ML SYRINGE 12 ML IV (12:54)
--- NOTE | 2024-11-24 11:08 | SW/DCPLANNER ---
Phoned patient x2. Left message with name and call back number. Anita Azul
== END 2024-11-20 17:27 | disposition home or self-care (01) ==
LOC: ER 18:55 → 2ND 23:04
PROVIDERS: Internal Medicine Adolescent Medicine; Nurse Practitioner Family; Physician Assistant; Admitting Provider Student in an Organized Health Care Education/Training Program; Emergency Provider Emergency Medicine; PCP Family Medicine; Visit Provider Student in an Organized Health Care Education/Training Program
DX: I74.11 Embolism and thrombosis of thoracic aorta (principal); E83.42 Hypomagnesemia; D64.9 Anemia, unspecified; I25.10 Atherosclerotic heart disease of native coronary artery without angina pectoris; I10 Essential (primary) hypertension; R63.8 Other symptoms and signs concerning food and fluid intake; R11.2 Nausea with vomiting, unspecified; F39 Unspecified mood [affective] disorder; G62.9 Polyneuropathy, unspecified; E03.9 Hypothyroidism, unspecified; K21.9 Gastro-esophageal reflux disease without esophagitis; G25.81 Restless legs syndrome; E78.5 Hyperlipidemia, unspecified; M79.605 Pain in left leg; Z86.711 Personal history of pulmonary embolism; Z93.3 Colostomy status; Z90.49 Acquired absence of other specified parts of digestive tract; Z79.899 Other long term (current) drug therapy; Z79.890 Hormone replacement therapy; Z88.6 Allergy status to analgesic agent; Z88.1 Allergy status to other antibiotic agents; Z88.5 Allergy status to narcotic agent; Z88.2 Allergy status to sulfonamides; Z86.718 Personal history of other venous thrombosis and embolism; Z87.891 Personal history of nicotine dependence; N17.9 Acute kidney failure, unspecified; J44.9 Chronic obstructive pulmonary disease, unspecified; G47.33 Obstructive sleep apnea (adult) (pediatric); Z90.710 Acquired absence of both cervix and uterus; Z77.22 Contact with and (suspected) exposure to environmental tobacco smoke (acute) (chronic); Z79.01 Long term (current) use of anticoagulants
CPT/HCPCS: 36415; 71275; 74185; 75635; 80048; 80053; 80061; 80076; 82550; 83605; 83690; 83735; 84100; 84145; 85025; 93306; 93308; 93971; 97162; 99291; A9576; G0378; J0612; J1171; J1650; J2405; J2550; J3475; J7030; Q9967

== ENCOUNTER 2024-12-03 06:54 | Outpatient (CLI) | payer MEDICARE, MEDICAID, SELFPAY ==
--- OUTSIDE RECORDS SUMMARY | 2024-10-18 20:19 | XMS_ITS | Encounter Summary ---
Author Organization Healthcare Address [address] [place] [address] Care Team Providers Care Retail Management Trainee Name Role Phone Roman Medina MD Primary Care Provider [phone] Lazarus North MD Unavailable [phone] Reason for Visit * Reason Comments Abdominal Pain Vomiting * Auth/Cert (Routine) Specialty Diagnoses / Procedures Referred By Contac t Referred To Contact Diagnoses SBO (small bowel obstruction) ([facility]) Little Mendoza MD [address] [facility] [address] [place] [address] Phone: tel: fax: [facility] Emergency Department [address] [place] [address] Phone: tel: Referral ID Status Reason Start Date Expiration Date Visits Re quested Visits Authorized [id number] 1 1 Encounter Details Date Type Department Care Team (Late st Contact Info) Description 10/18/2024 8:19 PM EDT - 10/26/2024 1:18 PM EDT Hospital Encounter [facility] Inpatient [address] [place] [address] Margarito Sue MD [address] [place] [address] Corby Ramos MD [address] [place] [address] Little Mendoza MD [address] [facility] [address] [place] [address] Farnaz Brito MD [address] [facility] [address] [place] [address] King Zapata MD [address] [facility] [address] [place] [address] SBO (small bowel obstruction) (CMS/HCC) (Primary Dx) Discharge Disposition: Home or Self Care Social History Tobacco Use Types Packs/Day Years Used Date Smoking Tobacco: Former Cigarettes Q uit: 2018 Smokeless Tobacco: Never Alcohol Use Standard Drinks/Week Comments Not Currently 1 (1 standard drink = 0.6 oz pur e alcohol) occasionally Humiliation, Afraid, Rape, and Kick questionnair e Answer Date Recorded Within the last year, have y ou been afraid of your partner or ex-partner? No 10/23/2024 Within the last year, have y ou been humiliated or emotionally abused in other ways by your partner or ex-partner? No Within the last year, have y ou been kicked, hit, slapped, or otherwise physically hurt by your partner or ex-partner? No 10/23/2024 Within the last year, have y ou been raped or forced to have any kind of sexual activity by your partner or ex-partner? No 10/23/2024 Overall Financial Resource Strain (CARDIA) Answe r Date Recorded How hard is it for you to pa y for the very basics like food, housing, medical care, and heating? Not very hard 06/13/2023 PHQ-2 Answer Date Recorded Patient Health Questionnaire-2 Score 0 03/20/2024 Hunger Vital Sign Answer Date Recorded Within the past 12 months, y ou worried that your food would run out before you got the money to buy more. Never true 10/24/19 25 Within the past 12 months, t he food you bought just didn't last and you didn't have money to get more. Never true 10/23/2024 PRAPARE - Transportation Answer Date Re corded In the past 12 months, has l ack of transportation kept you from medical appointments or from getting medications? No 07/2024 In the past 12 months, has l ack of transportation kept you from meetings, work, or from getting things needed for daily living? No 10/23/2024 Housing Stability Vital Sign Answer Efe e Recorded In the last 12 months, was t here a time when you were not able to pay the mortgage or rent on time? No 07/15/2023 In the last 12 months, how many places have you lived? 1 07/15/2023 In the last 12 months, was t here a time when you did not have a steady place to sleep or slept in a prison (including now)? No 07/15/2023 Housing Stability Vital Sign Answer Efe e Recorded In the last 12 months, was t here a time when you were not able to pay the mortgage or rent on time? No 10/23/2024 In the past 12 months, how m any times have you moved where you were living? 0 10/23/2024 At any time in the past 12 m [facility], were you homeless or living in a prison (including now)? No 10/23/2024 CAGE ASSESSMENT Answer Date Recorded Cage unable to access Not on file 12/07/2023 Maximum number of drinks you had on a given occasion in the last month? 0 drinks 12/07/2023 How many alcoholic Beverages do you typically drink in a week? 0 - 7 per week 12/07/2023 Have you ever felt you should CUT down on your d rinking? 0 12/07/2023 Have you been ANNOYED by peo ple criticizing your drinking? 0 12/07/2023 Have you felt GUILTY about your drinking? 0 12/07/2023 Have you had a drink first t cash in the morning ([employer]) to steady your nerves or to get rid of a hangover? 0 12/07/2023 CAGE Questionnaire Score 0 024 Utilities Answer Date Recorded In the past 12 months has th e electric, gas, oil, or water company threatened to shut off services in your home? No 10/23/2024 PHQ-2A Answer Date Recorded Patient Health Questionnaire-2 Score 2 04/10/2023 Comments No Sex and Gender Information Value Date Recorded Sex Assigned at Female 10/17/2023 8:34 AM EDT Legal Sex Female 6:40 PM EDT Gender Identity Female 10/17/2023 8:34 AM EDT Sexual Orientation Not on file documented as of this encounter Last Filed Vital Signs Vital Sign Reading Time Taken Comments Blood Pressure 145/80 10/26/2024 11:31 AM EDT Pulse 69 10/26/2024 11:31 AM EDT Temperature 36.7 C (98 F) 10/26/2024 11:31 AM EDT Respiratory Rate 16 10/26/2024 3:23 AM EDT Oxygen Saturation 93% 10/26/2024 11: 31 AM EDT Inhaled Oxygen Concentration - - Weight 70.3 kg (154 lb 15.7 oz) 025 8:35 PM EDT Height - - Body Mass Index 27.45 09/29/2024 2:31 AM EDT documented in this encounter Functional Status * Are you deaf or do you have serious difficulty hearing? Answer Date of Assessment Author No 07/15/2023 12:07 PM Carlos Bradley RN * Are you blind or do you have serious difficulty seeing, even when wearing glasses? Answer Date of Assessment Author No 07/15/2023 12:07 PM Carlos Bradley RN * Do you have serious difficulty walking or climbing stairs? Answer Date of Assessment Author No 07/15/2023 12:07 PM Carlos Bradley RN * Do you have serious difficulty dressing or bathing? Answer Date of Assessment Author No 07/15/2023 12:07 PM Carlos Bradley RN * Because of a physical, mental, or emotional condition, do you have serious difficulty doing errandsalone such as visiting the doctor? Answer Date of Assessment Author Yes 07/15/2023 12:07 PM Carlos Bradley RN * Calculated C-SSRS Risk Score (Lifetime/Recent) Answer Date of Assessment Author No Risk Indicated 10/26/2024 8:00 AM EDT Mikey Holt, RN * Question Answer Date of Assessment Author 1. Wish to be (Past 1 Month) No 05/05/2 025 8:00 AM EDT Mikey Holt, RN 2. Non-Specific Active Suici claribel Thoughts (Past 1 Month) No 10/26/2024 8:00 AM EDT Kwabena Holt, RN 6. Suicidal Behavior (Lifetime) No 8:00 AM EDT Mikey Holt, RN documented as of this encounter Mental Status * Because of a physical, mental, or emotional condition, do you have serious difficulty concentrating, remembering, or making decisions? (5 years old or older) Answer Entry Date Author No 07/15/2023 12:07 PM Carlos Bradley RN documented in this encounter Discharge Instructions * Discharge Instructions* Rebecca Cadena APRN - 10/26/2024 8:57 AM EDT Discharge Instructions: Medications: - You have been started on 2 new blood pressure medicines, amlodipine and coreg. You should take these as prescribed. These will need to be managed by your PCP in the future. - You have been prescribed loperamide 2mg four times per day as needed. This is an anti-diarrheal and is very important in the management of your ostomy output. Your output should be between 600ml-1200ml per day. If output drops BELOW 600ml, then stop loperamide and call us immediately. If your output is ABOVE 1200ml per day for more than one day, call us immediately. You will be at high risk for dehydration which can be very dangerous. IT IS VERY IMPORTANT THAT YOU MEASURE YOUR OUTPUT DAILY. - You should take Tylenol every 6 hours for mild - moderate pain. - You have been prescribed pain medications to be taken as needed for severe pain. Do NOT take any home narcotics while taking pain medicine we have prescribed. - You may resume your previous medications unless otherwise instructed. Nutrition: - You should eat an ostomy safe, NO concentrated sweets diet. Activity: - Walking and climbing stairs is ok and encouraged. You should refrain from any strenuous activity/exercise until your follow up appointment. - No lifting anything >5-10lbs for the next 6 weeks. - You may not drive for 48 hours after surgery, or while taking narcotics. - Activity as tolerated. Dressing: - You may shower. Let the soapy water run over your incisions. Do not scrub at your incisions. After you shower, pat your incisions dry with a clean towel. - You have britton across your incision. These will be removed in clinic at your follow up appointment. Potential Issues: - It is normal to have some pain and soreness, especially around the incisions - A small amount of clear drainage from the incision may be expected, call the office if the drainage becomes bloody, purulent (pus), or foul-smelling - Call the office if you start to have increased redness, drainage, swelling, or increased pain around your incision - Call the office if you have a fever greater than 101 F - Call the office if you have severe abdominal discomfort, nausea and vomiting, or feeling unwell Questions or Concerns and Appointments For appointments please call our General Surgery Clinic at [phone]. If there are questions or concerns after discharge from the hospital, call Linda Parham, Nurse Coordinator between 7am-3pm at [phone]. If it is after hours, weekends, and holidays please call [phone] and ask for the resident product promoter sales person for Emergency General Surgery. Medication requests should be made between the hours of 9:00 AM to 3:00 PM Saturday thru Saturday. Please note that based upon recent changes to [place] law related to prescribing opioid pain medications, our providers will not provide refills on controlled medications after your hospital discharge following a major surgery or trauma. [place] 201 KAR9:260. documented in this encounter Medications at Time of Discharge acetaminophen (Tylenol) 325 MG tablet Take 2 tablets by mouth every 6 hours. Under [place] law, monthly prescriptions (30 days) can be refilled at 25 days and three-month prescriptions (90 days) at 80 days. Please contact the insurance company with questions if refills are denied. 100 tablet albuterol 108 (90 Base) MCG/ACT inhaler Inhale 2 puffs 4 times a day as needed for shortness of breath. alendronate (Fosamax) 70 MG tablet Take 1 tablet by mouth every 7 days. Take in the morning with a full glass of water, on an empty stomach, and do not take anything else by mouth or lie down for the next 30 min. amLODIPine (Norvasc) 5 MG tablet Take 1 tablet by mouth daily. 30 tablet 1 5 12/27/19 25 Bevespi Aerosphere 9-4.8 MCG/ACT aerosol Inhale 2 puffs 2 times a day. 5 buPROPion (Wellbutrin) 75 MG tablet Take 2 tablets by mouth 2 times a day. 3 carvedilol (Coreg) 3.125 MG tablet Take 1 tablet by mouth 2 times a day. 60 tablet 1 5 12/26/19 25 ergocalciferol 1.25 MG (14765 UT) capsule Take 1 capsule by mouth 1 time per week. 4 gabapentin (Neurontin) 100 MG capsule Take 1 capsule by mouth 2 times a day. loperamide (Imodium A-D) 2 MG tablet Take 1 tablet by mouth 4 times a day as needed for diarrhea. 30 tablet 5 Multiple Vitamin (multivitamin) tablet Take 1 tablet by mouth daily. naloxone (Narcan) 4 mg/0.1 mL nasal spray 1. Give 1 spray in nostril for no/slow breathing or cannot wake after opioid use 2. Call 911 3. Repeat in other nostril if symptoms continue 1 each 5 ondansetron ODT (Zofran-ODT) 4 MG disintegrating tablet Dissolve 1 tablet on the tongue every 6 hours as needed for nausea or vomiting. 20 tablet 5 oxyCODONE-acetamino phen (Percocet) 5-325 MG tablet Take 1 tablet by mouth every 8 hours as needed for severe pain. pantoprazole (Protonix) 40 MG EC tablet Take 1 tablet by mouth 2 times a day. Do not crush, chew, or split. potassium chloride CR (Klor-Con M20) 20 MEQ ER tablet Take 1 tablet by mouth daily. Do not crush or chew. rOPINIRole (Requip) 0.5 MG tablet Take 1 tablet by mouth nightly. 4 rosuvastatin (Crestor) 20 MG tablet Take 1 tablet by mouth nightly. tiZANidine (Zanaflex) 4 MG tablet Take 1 tablet by mouth every 8 hours as needed for muscle spasms. traZODone (Desyrel) 100 MG tablet Take 1-2 tablets by mouth nightly. magnesium oxide (Mag-Ox) 400 (240 Mg) MG tablet Take 1 tablet by mouth daily for 2 doses. 2 tablet 5 10/30/19 25 oxyCODONE (Roxicodone) 5 MG immediate release tablet Take 2 tablets by mouth 4 times a day as needed (pain) for 2 days, THEN 2 tablets 3 times a day as needed (pain) for 2 days, THEN 1 tablet 4 times a day as needed (pain) for 2 days, THEN 1 tablet 2 times a day as needed (pain) for up to 2 days. 40 tablet 5 11/06/19 25 phosphorus (K Phos Neutral) tablet Take 1 tablet by mouth 2 times a day for 5 doses. 5 tablet 5 11/06/19 25 methenamine hippurate (Hiprex) 1 g tabletIndications:R ecurrent UTI TAKE ONE TABLET BY MOUTH 2 TIMES A DAY 60 tablet 5 11/28/19 25 documented as of this encounter Miscellaneous Notes * Progress Notes - Keren Bro RN - 10/26/2024 1:18 PM EDT Case Management Discharge Note Roel Cervantes 69 y.o. female CSN: [id number] Admission: 10/18/2024 8:19 PM Primary Problem: SBO (small bowel obstruction) (CMS/[facility]) Primary Production Material Handler: Primary Caregiver: Self Assistance Available at Discharge: Availability of Care Givers (#Hours): 24 hours (Patient's spouse is available 24/ as needed) Family/Production Material Handler(s) Willingness Assessed to care for patient at home: Yes Housing Circumstances-Z Codes: Housing Circumstances (select all that apply): Extreme poverty (100% or less than Federal Poverty Guidelines) - Z595 Discharge Facility/Level of Care Needs: Discharge Facility/Level of Care Needs: 1-Home or Self Care Patient/Family Anticipated Services at Transition: Patient/Family Anticipated Services at Transition: none DME/Equipment Needed after Discharge: Equipment Currently Used at Home: cane, straight, commode chair, oxygen, shower chair, walker, rolling, wheelchair, manual Readmission Within the Last 30 Days: Readmission Within the Last 30 Days: (Discharged 10/01/24) Medicare Documentation: Medicare Second Notice?: Yes Date Second Notice Completed: 10/26/24 Time Second Notice Completed: 954 Medicare Second Notice Recieved By: Roel Cervantes Follow-up: No follow-up provider specified. Discharge Transportation: Transportation Anticipated: family or friend will provide Transportation Home at Discharge: Family/Friend will Provide Follow Up Transport: Transportation Needed to Follow up Appoinments: Family/Friend will Provide Additional Comments: Per primary treatment team, patient is medically ready to discharge today. Currently there are no RN CM needs. Keren Bro RN * Discharge Summary - Rebecca Cadena APRN - 10/26/2024 11:37 AM EDT Hospitalization Admit Date/Time: 10/18/2024 8:19 PM Admitting Attending: Little Mendoza Discharge Date: 10/26/2024 Discharge Attending Physician: King Zapata MD PCP name and Address: Roman Medina MD [address] [place] [address] Referring provider name and address: No referring provider defined for this encounter. Chief Concern, Brief History of Present Illness, and Hospital Course Chief Complaint: abd pain, N/V Roelharvey Cervantes is a 68 y.o. female with PMHx significant for COPD (on 2 L at night), PE (finishedanticoagulation 05/2024), perforated diverticulitis (s/p total abdominal colectomy with end ileostomy 2020 s/p revision 2021) and multiple prior bowel obstructions requiring adhesiolysis and SBR who presented to on 10/19/24 with a 1 day of abdominal pain and associated nausea and vomiting. Patient reports her pain is similar to prior episodes of bowel obstructions. She reports she normally empties her bag 3 to 4 times a day however is only emptied a 1 to 2 times a day. She denies other complaints. No chest pain, shortness of breath, fever, chills. Copied from admission H&P. Diagnosis: SBO 10/21: s/p LONNIE >90 minutes (Daryl) Post-operatively she did well. She regained ostomy function and was tolerating an ostomy safe diet. She was deemed appropriate for discharge. She will follow up with Dr. Brito 11/05 for a post-op check and staple removal. Surgeries and Procedures Procedures performed in this encounter Procedures Case Request Operating Room: LAPAROTOMY, EXPLORATORY, WITH LYSIS OF ADHESIONS LAPAROTOMY, EXPLORATORY, WITH LYSIS OF ADHESIONS (N/A) Medication List .. acetaminophen 325 MG tablet Commonly known as: Tylenol Take 2 tablets by mouth every 6 hours. Under [place] law, monthly prescriptions (30 days) can be refilled at 25 days and three-month prescriptions (90 days) at 80 days. Please contact the insurance company with questions if refills are denied. albuterol 108 (90 Base) MCG/ACT inhaler Inhale 2 puffs 4 times a day as needed for shortness of breath. alendronate 70 MG tablet Commonly known as: Fosamax Take 1 tablet by mouth every 7 days. Take in the morning with a full glass of water, on an empty stomach, and do not take anything else by mouth or lie down for the next 30 min. amLODIPine 5 MG tablet Commonly known as: Norvasc Take 1 tablet by mouth daily. Start taking on: October 27, 2024 Bevespi Aerosphere 9-4.8 MCG/ACT aerosol Generic drug: Glycopyrrolate-Formoterol Inhale 2 puffs 2 times a day. buPROPion 75 MG tablet Commonly known as: Wellbutrin Take 2 tablets by mouth 2 times a day. carvedilol 3.125 MG tablet Commonly known as: Coreg Take 1 tablet by mouth 2 times a day. ergocalciferol 1.25 MG (54557 UT) capsule Commonly known as: Vitamin D-2 Take 1 capsule by mouth 1 time per week. gabapentin 100 MG capsule Commonly known as: Neurontin Take 1 capsule by mouth 2 times a day. loperamide 2 MG tablet Commonly known as: Imodium A-D Take 1 tablet by mouth 4 times a day as needed for diarrhea. methenamine hippurate 1 g tablet Commonly known as: Hiprex TAKE ONE TABLET BY MOUTH 2 TIMES A DAY multivitamin tablet Take 1 tablet by mouth daily. naloxone 4 mg/0.1 mL nasal spray Commonly known as: Narcan 1. Give 1 spray in nostril for no/slow breathing or cannot wake after opioid use 2. Call 911 3. Repeat in other nostril if symptoms continue ondansetron ODT 4 MG disintegrating tablet Commonly known as: Zofran-ODT Dissolve 1 tablet on the tongue every 6 hours as needed for nausea or vomiting. oxyCODONE 5 MG immediate release tablet Commonly known as: Roxicodone Take 2 tablets by mouth 4 times a day as needed (pain) for 2 days, THEN 2 tablets 3 times a day as needed (pain) for 2 days, THEN 1 tablet 4 times a day as needed (pain) for 2 days, THEN 1 tablet 2 times a day as needed (pain) for up to 2 days. Start taking on: October 26, 2024 oxyCODONE-acetaminophen 5-325 MG tablet Commonly known as: Percocet Take 1 tablet by mouth every 8 hours as needed for severe pain. pantoprazole 40 MG EC tablet Commonly known as: Protonix Take 1 tablet by mouth 2 times a day. Do not crush, chew, or split. potassium chloride CR 20 MEQ ER tablet Commonly known as: Klor-Con M20 Take 1 tablet by mouth daily. Do not crush or chew. rOPINIRole 0.5 MG tablet Commonly known as: Requip Take 1 tablet by mouth nightly. rosuvastatin 20 MG tablet Commonly known as: Crestor Take 1 tablet by mouth nightly. tiZANidine 4 MG tablet Commonly known as: Zanaflex Take 1 tablet by mouth every 8 hours as needed for muscle spasms. traZODone 100 MG tablet Commonly known as: Desyrel Take 1-2 tablets by mouth nightly. Where to Get Your Medications These medications were sent to [facility] [place] [facility] [address] [place] [address] methenamine hippurate 1 g tablet These medications were sent to [facility] - [place], [place] - [address] [facility] [id number] acetaminophen 325 MG tablet amLODIPine 5 MG tablet carvedilol 3.125 MG tablet loperamide 2 MG tablet naloxone 4 mg/0.1 mL nasal spray oxyCODONE 5 MG immediate release tablet Discharge Diagnosis Medical Problems Active and Resolved Hospital Problems Hospital HTN (hypertension) Overview Addendum 09/08/2024 9:51 AM by Estrellita Hennessy APRN Resume home carvedilol COPD (chronic obstructive pulmonary disease) ([facility]) Overview Addendum 10/25/2024 9:40 AM by Brigid Branham MD 2L nightly home O2 Mood disorder ([facility]) Overview Addendum 09/29/2024 11:28 AM by Estrellita Hennessy APRN Resume home meds Hypothyroidism Overview Addendum 10/26/2024 6:12 AM by King Zapata MD No home meds GERD (gastroesophageal reflux disease) Overview Addendum 09/08/2024 9:51 AM by Estrellita Hennessy APRN Resume PPI Emphysema/COPD ([facility]) Overview Addendum 09/29/2024 11:29 AM by Estrellita Hennessy APRN Pulm hygiene, IS, PEP Home inhalers Ileostomy present ([facility]) Overview Addendum 10/25/2024 9:42 AM by Brigid Branham MD Hx of perf diverticulitis s/p total colectomy with end ileostomy 2020 and revision 2021 Monitor output RESOLVED: Electrolyte imbalance Overview Signed 09/29/2024 11:31 AM by Estrellita Hennessy APRN Monitor/trend Replete as needed * (Principal) RESOLVED: SBO (small bowel obstruction) ([facility]) Overview Addendum 10/24/2024 9:23 AM by Chito Dubon MD 10/21: s/p LONNIE (Daryl) Reg Diet Strict I/Os Hyperlipidemia Overview Addendum 09/08/2024 9:51 AM by Estrellita Hennessy APRN Resume home statin Post Discharge Instructions Medications: - You have been started on 2 new blood pressure medicines, amlodipine and coreg. You should take these as prescribed. These will need to be managed by your PCP in the future. - You have been prescribed loperamide 2mg four times per day as needed. This is an anti-diarrheal and is very important in the management of your ostomy output. Your output should be between 600ml-1200ml per day. If output drops BELOW 600ml, then stop loperamide and call us immediately. If your output is ABOVE 1200ml per day for more than one day, call us immediately. You will be at high risk for dehydration which can be very dangerous. IT IS VERY IMPORTANT THAT YOU MEASURE YOUR OUTPUT DAILY. - You should take Tylenol every 6 hours for mild - moderate pain. - You have been prescribed pain medications to be taken as needed for severe pain. Do NOT take any home narcotics while taking pain medicine we have prescribed. - You may resume your previous medications unless otherwise instructed. Nutrition: - You should eat an ostomy safe, NO concentrated sweets diet. Activity: - Walking and climbing stairs is ok and encouraged. You should refrain from any strenuous activity/exercise until your follow up appointment. - No lifting anything >5-10lbs for the next 6 weeks. - You may not drive for 48 hours after surgery, or while taking narcotics. - Activity as tolerated. Dressing: - You may shower. Let the soapy water run over your incisions. Do not scrub at your incisions. After you shower, pat your incisions dry with a clean towel. - You have britton across your incision. These will be removed in clinic at your follow up appointment. Potential Issues: - It is normal to have some pain and soreness, especially around the incisions - A small amount of clear drainage from the incision may be expected, call the office if the drainage becomes bloody, purulent (pus), or foul-smelling - Call the office if you start to have increased redness, drainage, swelling, or increased pain around your incision - Call the office if you have a fever greater than 101 F - Call the office if you have severe abdominal discomfort, nausea and vomiting, or feeling unwell Questions or Concerns and Appointments For appointments please call our [facility] at [phone]. If there are questions or concerns after discharge from the hospital, call Linda Parham, Nurse Coordinator between 7am-3pm at [phone]. If it is after hours, weekends, and holidays please call [phone] and ask for the resident product promoter sales person for Emergency General Surgery. Medication requests should be made between the hours of 9:00 AM to 3:00 PM Saturday thru Saturday. Please note that based upon recent changes to [place] law related to prescribing opioid pain medications, our providers will not provide refills on controlled medications after your hospital discharge following a major surgery or trauma. [place] 201 KAR9:260. Outpatient Follow-Up Future Appointments Date Time Provider Department Center 11/05/2024 10:15 AM Farnaz Brito MD [facility] Test Results Pending At Discharge Pending Labs Order Current Status Basic metabolic panel In process Magnesium In process Phosphorus In process Pertinent Physical Exam At Time of Discharge Physical Exam Vitals and nursing note reviewed. HENT: Head: Normocephalic. Right Ear: External ear normal. Left Ear: External ear normal. Nose: Nose normal. Mouth/Throat: Mouth: Mucous membranes are moist. Pharynx: Oropharynx is clear. Eyes: Conjunctiva/sclera: Conjunctivae normal. Pupils: Pupils are equal, round, and reactive to light. Cardiovascular: Pulses: Normal pulses. Pulmonary: Effort: Pulmonary effort is normal. Abdominal: Palpations: Abdomen is soft. Musculoskeletal: General: Normal range of motion. Cervical back: Normal range of motion. Skin: General: Skin is warm and dry. Capillary Refill: Capillary refill takes less than 2 seconds. Comments: Britton c/d/i Neurological: General: No focal deficit present. Mental Status: She is alert and oriented to person, place, and time. Mental status is at baseline. Psychiatric: Mood and Affect: Mood normal. Behavior: Behavior normal. Thought Content: Thought content normal. Judgment: Judgment normal. Discharge Disposition/Condition Disposition: Home Condition: Stable (s/sx potential problems absent or manageable) I spent >30 minutes of patient care and instruction time in preparation for this discharge. Cosigned by King Zapata MD at 10/26/2024 5:54 PM EDT * Consults - Marlyn Sandoval RN - 10/26/2024 11:16 AM EDTAssociated Order(s): IP CONSULT TO ADULT VASCULAR ACCESS TEAM Labs drawn from left brachial vein, labeled, collected in epic and sent to lab via tube system. * Roger Fontanez RN - 10/26/2024 11:06 AM EDT Images from the original note were not included. [address]23 Small Bowel Obstruction A small bowel obstruction occurs when part or all of the small intestine (bowel) is blocked. As a result, digestive contents can?t move through the bowel and out of the body correctly. Treatment is needed right away to remove the blockage. This can ease painful symptoms. It can also prevent seriousproblems, such as tissue or bursting (rupture) of the small bowel and infection. Without treatment, a small bowel obstruction can be fatal. Small bowel obstruction can lead to tissue damage and even tissue . Causes of small bowel obstruction A small bowel obstruction can be caused by: ?? Scar tissue (adhesions). This is the most common cause. These may form after belly (abdominal) surgery or an infection. ?? Hernia. A hernia is when an organ pushes through a weak spot or tear in the abdomen wall. Part of the small bowel can push out and be seen as a bulge under the belly. Hernias can also occur internally. ?? Tumors. These can form on the inside or outside of the intestines. ?? Volvulus. This is twisting of the intestines. ?? Intussusception. This is when part of the bowel slides inside another part. ?? Crohn?s disease. ?? Diverticulitis. ?? Gallstones. ?? Swallowed objects, especially in children. Symptoms of small bowel obstruction Common symptoms include: ?? Belly cramping and pain. ?? Belly swelling and bloating. ?? Upset stomach (nausea) and vomiting. ?? Can't pass gas. ?? Can't pass stool (constipation). ?? Diarrhea. Diagnosing small bowel obstruction Your health care provider will ask about your symptoms and health history. You?ll also have a physical exam. Tests may also be done to confirm the problem. These can include: ?? Imaging tests. These provide pictures of the small bowel. Common tests include X-rays and a CT scan. ?? Blood tests. These check for infection and other problems, such as excess fluid loss (dehydration). ?? Upper GI (gastrointestinal) series with a small bowel follow-through. This test takes X-rays of the upper digestive tract from the mouth through the small bowel. An X-ray contrast material is used. The contrast coats the inside of your upper digestive tract so it will show up clearly on X-rays. Treating small bowel obstruction Treatment takes place in a hospital. As part of your care, the following may be done: ?? No food or drink is given by mouth. This allows your bowels to rest. ?? An I.V. (intravenous) line is placed in a vein in your arm or hand. The I.V. line is used to give fluids and medicines. These may be needed to ease pain, nausea, and other symptoms. They may also be needed to treat or prevent infections. ?? A soft, thin, flexible tube (nasogastric tube) is inserted through your nose and into your stomach. The tube is used to remove extra gas and fluid in your stomach so that the bowels can rest. Thishelps ease symptoms, such as pain and swelling. ?? In some cases, surgery is done. This may be needed depending on the cause of the obstruction. During surgery, the blockage is removed. Parts of the bowel may also be removed if there is tissue . Other repairs may be done as well, depending on what caused the blockage. Your health care provider will give you more information about surgery, if needed. ?? You?ll be watched closely in the hospital until you are stable and your symptoms improve. Your provider will tell you when you can go home. Long-term concerns After treatment, most people recover with no lasting effects. If a long part of the bowel is removed, there is a greater chance for lifelong digestive problems. Bowel movements may become irregular. Work with your health care provider to learn the best ways to manage any symptoms you may have, and to protect your health. When to call your doctor Contact your health care provider right away or get immediate medical care if you: ?? Have severe pain. (Call 911.) ?? Have belly swelling or cramping that won?t go away. ?? Can?t pass stool or gas. ?? Have nausea or vomiting (especially if the vomit looks or smells like stool). Last Reviewed Date: 2024 00:00:00 ?? [id number] [employer]. All rights reserved. This information is not intended as a substitute for professional medical care. Always follow your healthcare professional's instructions. * Consults - Dasha Gregorio RN - 10/25/2024 1:21 PM EDTAssociated Order(s): IP CONSULT TO ADULT VASCULAR ACCESS TEAM VAT consulted to assist with obtaining labs using US. VAT RN to bedside. Labs obtained x 1 attempt to right AC with butterfly needle. Tubes labeled at bedside. Specimen delivered to lab via tube system. Pertinent ultrasound and/or 3CG images sent to PACS. * Progress Notes - Eran Quiñonez MD - 10/25/2024 7:35 AM EDT 10/25/24 Roel Cervantes HPI 68 YO F with PMHx significant for COPD (on 2 L at night), PE (finished anticoagulation 05/2024), perforated diverticulitis (s/p total abdominal colectomy with end ileostomy 2020 s/p revision 2021) and multiple prior bowel obstructions requiring adhesiolysis and SBR admitted 10/19/24 for SBO. 10/21: s/p LONNIE (Daryl) Interval: Multiple episodes of small volume emesis overnight, abdominal pain, teary at bedside, poor PO intake, ambulating Edited by: Eran Quiñonez MD at 10/25/2024 0735 Relevant review of systems was obtained as able and is negative unless stated above in HPI. Vital signs: Vitals: 10/25/24 0313 BP: (!) 159/91 Pulse: 69 Resp: 18 Temp: 37 ??C (98.6 ??F) SpO2: 95% Physical Exam Constitutional: Appearance: Normal appearance. Comments: Teary HENT: Mouth/Throat: Mouth: Mucous membranes are moist. Pharynx: Oropharynx is clear. Cardiovascular: Rate and Rhythm: Normal rate. Pulses: Normal pulses. Pulmonary: Effort: Pulmonary effort is normal. Abdominal: General: Abdomen is flat. Palpations: Abdomen is soft. Tenderness: There is abdominal tenderness. There is no guarding or rebound. Comments: Stoma appears pink and healthy with high ostomy output Skin: General: Skin is warm and dry. Neurological: General: No focal deficit present. Mental Status: She is alert and oriented to person, place, and time. Psychiatric: Mood and Affect: Mood normal. Behavior: Behavior normal. Intake/Output Summary (Last 24 hours) at 10/25/2024 0736 Last data filed at 10/25/2024 0600 Gross per 24 hour Intake 240 ml Output 1050 ml Net -810 ml Lines/Drains/Tubes: Patient Lines/Drains/Airways Status Active Airway None Output by Drain (mL) 10/23/24 0700 - 10/23/24 1859 10/23/24 1900 - 10/24/24 0659 10/24/24 0700 - 10/24/24 1859 10/24/24 1900 - 10/25/24 0659 10/25/24 0700 - 10/25/24 0736 Requested LDAs do not have output data documented. Labs in last 18 hours: CBC WBC ?? Hb ?? Plt ?? Hct ?? ANC ?? INR ??, PTT ??, Anti-Xa ?? MCV ?? BMP Na ?? Cl ?? BUN ?? Glu ?? K ?? Co2 ?? Cr ?? Ca ?? iCa ?? Mg ??, Phos ?? Lactate ?? LFT AST ?? AlkPhos ?? T Prot ?? ALK ?? Bili ?? Alb ?? D.Bili ?? Lab Trends: H/H Results from last 7 days Lab Units 10/22/24 0012 10/18/242016 HEMOGLOBIN g/dL 11.7 12.6 HEMATOCRIT % 38.6 39.4 INR Cr Results from last 7 days Lab Units 10/22/24 0012 10/20/24 0501 10/18/242016 CREATININE mg/dL 0.77 0.91 0.88 Medications reviewed. Vital signs reviewed. Labs reviewed. Radiography reviewed. Assessment and Plan: Medical Problems and Relevant Plans Hospital Problems POA * (Principal) SBO (small bowel obstruction) ([facility]) Yes Overview Addendum 10/24/2024 9:23 AM by Chito Dubon MD 10/21: s/p LONNIE (Daryl) Reg Diet Strict I/Os HTN (hypertension) Yes Overview Addendum 09/08/2024 9:51 AM by Estrellita Hennessy APRN Resume home carvedilol Mood disorder ([facility]) Yes Overview Addendum 09/29/2024 11:28 AM by Estrellita Hennessy APRN Resume home meds Hypothyroidism Yes Overview Addendum 09/08/2024 9:51 AM by Estrellita Hennessy APRN Resume home meds GERD (gastroesophageal reflux disease) Yes Overview Addendum 09/08/2024 9:51 AM by Estrellita Hennessy APRN Resume PPI Emphysema/COPD ([facility]) Yes Overview Addendum 09/29/2024 11:29 AM by Estrellita Hennessy APRN Pulm hygiene, IS, PEP Home inhalers Electrolyte imbalance Yes Overview Signed 09/29/2024 11:31 AM by Estrellita Hennessy APRN Monitor/trend Replete as needed Hyperlipidemia Yes Overview Addendum 09/08/2024 9:51 AM by Estrellita Hennessy APRN Resume home statin Non-Hospital Problems Degenerative disc disease, lumbar Mild obstructive sleep apnea Overview Signed 10/24/2024 9:24 AM by Chito Dubon MD Complicates care Anal cancer ([facility]) Astigmatism of both eyes with presbyopia Combined form of age-related cataract, both eyes Coronary artery calcification seen on CT scan Diastolic dysfunction Elevated left ventricular end-diastolic pressure (LVEDP) Almazan catheter problem ([facility]) HHD (hypertensive heart disease) Lumbar radiculopathy Vitamin D deficiency At high risk for falls Complication of implanted vaginal mesh, unspecified complication, subsequent encounter Ileostomy present ([facility]) Overview Signed 09/29/2024 11:30 AM by Estrellita Hennessy APRN Monitor output Plan: Awaiting AM BMP and lytes Strict I&O's, Monitor UOP and ostomy output Reg diet DC Dilaudid PT/OT Dispo: Home with assistance planning 10/24 Edited by: Eran Quiñonez MD at 10/25/2024 0735 Eran Quiñonez MD Cosigned by Farnaz Brito MD at 10/25/2024 10:52 AM EDT Associated attestation - Farnaz Brito MD - 10/25/2024 10:52 AM EDT I saw and evaluated the patient. I discussed the case with the resident/fellow and agree with the findings and plan as documented. Pain controlled. Ostomy output 1.3L. Awaiting lab draw to evaluate BMP. Encouraging ambulation. * Care Plan - Madisyn Hill - 10/25/2024 6:22 AM EDT Problem: Adult Inpatient Plan of Care Goal: Plan of Care Review Outcome: Ongoing, Progressing Flowsheets (Taken 10/25/2024 06) Progress: improving Plan of Care Reviewed With: patient Goal: Patient-Specific Goal (Individualized) Outcome: Ongoing, Progressing Goal: Absence of Hospital-Acquired Illness or Injury Outcome: Ongoing, Progressing Goal: Optimal Comfort and Wellbeing Outcome: Ongoing, Progressing Goal: Readiness for Transition of Care Outcome: Ongoing, Progressing Problem: Constipation Goal: Effective Bowel Elimination Outcome: Ongoing, Progressing Problem: Mobility Impairment Goal: Optimal Mobility Outcome: Ongoing, Progressing Problem: Self-Care Deficit Goal: Improved Ability to Complete Activities of Daily Living Outcome: Ongoing, Progressing * Progress Notes - Chito Dubon MD - 10/24/2024 7:05 AM EDT 10/22/24 Roel Cervantes HPI 68 YO F with PMHx significant for COPD (on 2 L at night), PE (finished anticoagulation 05/2024), perforated diverticulitis (s/p total abdominal colectomy with end ileostomy 2020 s/p revision 2021) and multiple prior bowel obstructions requiring adhesiolysis and SBR admitted 10/19/24 for SBO. 10/21: s/p LONNIE (Daryl) Interval: Patient doing well POD 1. Tender. NGT removed. Ambulating to bathroom. Relevant review of systems was obtained as able and is negative unless stated above in HPI. Vital signs: Vitals: 10/23/24 2330 BP: 126/62 Pulse: 66 Resp: 16 Temp: 36.8 ??C (98.3 ??F) SpO2: 98% Physical Exam Gen: Alert and oriented to person, place, time. No acute distress. HEENT: Atraumatic, normocephalic. Mucous membranes moist. Eyes: Pupils grossly symmetric. No scleral icterus. Neck: Supple. No JVD, NGT in place Resp: No respiratory distress, symmetric chest rise, no stridor CV: Regular rate, normotensive, appears well perfused Abd: Soft, appropriately tender, no distention. No guarding or rebound. No masses. WV in place holding suction, stoma with stool output Ext: No cyanosis Psych: appropriate affect, interactive and communicative Neuro: Moves all extremities spontaneously, CN II-XII grossly intact Intake/Output Summary (Last 24 hours) at 10/24/2024 0706 Last data filed at 10/24/2024 0114 Gross per 24 hour Intake -- Output 1525 ml Net -1525 ml Lines/Drains/Tubes: Patient Lines/Drains/Airways Status Active Airway None Output by Drain (mL) 10/22/24 07 - 10/22/24 1859 10/22/24 190 - 10/23/24 0659 10/23/24 07 - 10/23/24 1859 10/23/24 190 - 10/24/24 0659 10/24/24 07 - 10/24/24 0706 Requested LDAs do not have output data documented. Labs in last 18 hours: CBC WBC ?? Hb ?? Plt ?? Hct ?? ANC ?? INR ??, PTT ??, Anti-Xa ?? MCV ?? BMP Na ?? Cl ?? BUN ?? Glu ?? K ?? Co2 ?? Cr ?? Ca ?? iCa ?? Mg ??, Phos ?? Lactate ?? LFT AST ?? AlkPhos ?? T Prot ?? ALK ?? Bili ?? Alb ?? D.Bili ?? Lab Trends: H/H Results from last 7 days Lab Units 10/22/24 0012 10/18/242016 HEMOGLOBIN g/dL 11.7 12.6 HEMATOCRIT % 38.6 39.4 INR Cr Results from last 7 days Lab Units 10/22/24 0012 10/20/24 0501 10/18/242016 CREATININE mg/dL 0.77 0.91 0.88 Medications reviewed. Vital signs reviewed. Labs reviewed. Radiography reviewed. Assessment and Plan: Medical Problems and Relevant Plans Hospital Problems POA * (Principal) SBO (small bowel obstruction) ([facility]) Yes Overview Signed 2024 9:46 AM by Estrellita Hennessy APRN 10/21: s/p LONNIE (Daryl) NGT NPO, mIVF's HTN (hypertension) Yes Overview Addendum 09/08/2024 9:51 AM by Estrellita Hennessy APRN Resume home carvedilol Mood disorder ([facility]) Yes Overview Addendum 09/29/2024 11:28 AM by Estrellita Hennessy APRN Resume home meds Hypothyroidism Yes Overview Addendum 09/08/2024 9:51 AM by Estrellita Hennessy APRN Resume home meds GERD (gastroesophageal reflux disease) Yes Overview Addendum 09/08/2024 9:51 AM by Estrellita Hennessy APRN Resume PPI Emphysema/COPD ([facility]) Yes Overview Addendum 09/29/2024 11:29 AM by Estrellita Hennessy APRN Pulm hygiene, IS, PEP Home inhalers Electrolyte imbalance Yes Overview Signed 09/29/2024 11:31 AM by Estrellita Hennessy APRN Monitor/trend Replete as needed Hyperlipidemia Yes Overview Addendum 09/08/2024 9:51 AM by Estrellita Hennessy APRN Resume home statin Non-Hospital Problems Degenerative disc disease, lumbar Mild obstructive sleep apnea Anal cancer ([facility]) Astigmatism of both eyes with presbyopia Combined form of age-related cataract, both eyes Coronary artery calcification seen on CT scan Diastolic dysfunction Elevated left ventricular end-diastolic pressure (LVEDP) Almazan catheter problem ([facility]) HHD (hypertensive heart disease) Lumbar radiculopathy Vitamin D deficiency At high risk for falls Complication of implanted vaginal mesh, unspecified complication, subsequent encounter Ileostomy present ([facility]) Overview Signed 09/29/2024 11:30 AM by Estrellita Hennessy APRN Monitor output Plan: Hydronephrosis on KUB Strict I&O's, Monitor UOP Reg diet DC Dilaudid Dispo: Home with assistance planning 10/24 Edited by: Chito Dubon MD at 10/24/2024 0705 Chito Dubon MD Cosigned by Farnaz Brito MD at 11/02/2024 1:53 PM EDT Associated attestation - Farnaz Brito MD - 11/02/2024 1:53 PM EDT I saw and evaluated the patient with the resident/fellow. I discussed the case with the resident/fellow and agree with the findings and plan as documented. * Procedures - Angely Linton RN - 10/23/2024 10:25 AM EDTAssociated Order(s): Insert peripheral IV Insert peripheral IV Performed by: Angely Linton, RN Authorized by: Farnaz Brito MD Hand hygiene: Hand hygiene performed prior to insertion Inserted using aseptic techniques: Yes Preparation: Skin prepped with chg Orientation: Left and upper Location: Arm Catheter placed: Peripheral IV Catheter size: 20g/1.88in Line Technique: Ultrasound Guidance Number of attempts: 2 IV flushes: Without difficulty and positive blood return noted and IV luer locked Patient tolerance: Patient tolerated the procedure well and there were no complications IV site covered with: Transparent semipermeable dressing Education provided to: Patient * Progress Notes - Keren Bro RN - 10/23/2024 9:13 AM EDT Case Management Adult Initial Progress Note Roel Cervantes 69 y.o. female CSN: [id number] Admission: 10/18/2024 8:19 PM Primary Problem: SBO (small bowel obstruction) ([facility]) Pest Control Service Technician reviewed chart and spoke with patient at bedside to complete this Initial Case Management Assessment. PCP: Roman Medina MD Emergency Contact: Extended Emergency Contact Information Primary Emergency Contact: Cr Andersen Mobile Relation: Spouse Aircraft Dispatcher needed? No Secondary Emergency Contact: Augusto Miranda Mobile Relation: Friend Aircraft Dispatcher needed? No Insurance: Primary Visit Coverage Payer Plan Sponsor Code Group Number Group Name AETNA MEDICARE AETNA MEDICARE [id number] Primary Visit Coverage Subscriber Subscriber ID Subscriber Name Subscriber [facility] Subscriber Address [id number] [address] [facility] [id number] [facility] [place] [address] Secondary Visit Coverage Payer Plan Sponsor Code Group Number Group Name MEDICAID-[facility] MEDICAID TRADITIONAL Z Secondary Visit Coverage Subscriber Subscriber ID Subscriber Name Subscriber [facility] Subscriber Address [id number] ROEL CERVANTES [facility] [id number] [address] [facility] [place] [address] Patient information: Lives with spouse and one other person [address] [facility] [id number] 4 steps to enter trailer, no interior steps Living Arrangements: Spouse/Significant other (Household size: 3) Type of Residence: Private residence, Single Level (4 steps to enter trailer) Primary Caregiver: Self Support System: Immediate family Daily Living Activities: Functional Status: Independent (Uses cane/walker when back issues arise) Smoker in the Home?: Yes Current DME: Equipment Currently Used at Home: cane, straight, commode chair, oxygen, shower chair, walker, rolling, wheelchair, manual Current DME Provider: [facility] provides home oxygen Income Information: Income Source: Disabled Income/Expense Information: (Meets 300% FPG) Current Resources Utilized: Food [place] Housing Circumstances-Z Codes: Housing Circumstances (select all that apply): Extreme poverty (100% or less than Federal Poverty Guidelines) - Z595 Anticipated Discharge Date: TBD Patient's Discharge Goal: Patient/Family Anticipates Transition to: home with family Assistance Available at Discharge: Availability of Care Givers (#Hours): 24 hours (Patient's spouse is available 14/01 as needed) Discharge Transport: Transportation Anticipated: family or friend will provide Follow Up Transport: Transportation Needed to Follow up Appoinments: Family/Friend will Provide Home Health / Home Infusion / Outpatient Dialysis Services: Current DME Provider: [facility] provides home oxygen Living Will/Advance Directive/Power of Business Development Recruiter /Guardian: Have you reviewed your Advance Directive and is it valid for this stay?: No Information Provided on Healthcare Directives: No Pre-existing DNR/DNI Order: No Additional Comments: Patient states she has assistance at home at discharge, and her is present 14/01, as needed. Keren Bro RN * Progress Notes - Krissy Talley MD - 10/23/2024 7:06 AM EDT 10/22/24 Roel Cervantes HPI 68 YO F with PMHx significant for COPD (on 2 L at night), PE (finished anticoagulation 05/2024), perforated diverticulitis (s/p total abdominal colectomy with end ileostomy 2020 s/p revision 2021) and multiple prior bowel obstructions requiring adhesiolysis and SBR admitted 10/19/24 for SBO. 10/21: s/p LONNIE (Daryl) Interval: Patient doing well POD 1. Tender. NGT removed. Ambulating to bathroom. Relevant review of systems was obtained as able and is negative unless stated above in HPI. Vital signs: Vitals: 10/23/24 0400 BP: (!) 141/83 Pulse: 77 Resp: 18 Temp: 36.8 ??C (98.3 ??F) SpO2: Physical Exam Gen: Alert and oriented to person, place, time. No acute distress. HEENT: Atraumatic, normocephalic. Mucous membranes moist. Eyes: Pupils grossly symmetric. No scleral icterus. Neck: Supple. No JVD, NGT in place Resp: No respiratory distress, symmetric chest rise, no stridor CV: Regular rate, normotensive, appears well perfused Abd: Soft, appropriately tender, no distention. No guarding or rebound. No masses. Ext: No cyanosis Psych: appropriate affect, interactive and communicative Neuro: Moves all extremities spontaneously, CN II-XII grossly intact Intake/Output Summary (Last 24 hours) at 10/23/2024 0707 Last data filed at 10/23/2024 0445 Gross per 24 hour Intake -- Output 360 ml Net -360 ml Lines/Drains/Tubes: Patient Lines/Drains/Airways Status Active Airway None Output by Drain (mL) 10/21/24 0700 - 10/21/24 1859 10/21/24 1900 - 10/22/24 0659 10/22/24 07 - 10/22/24 1859 10/22/24 1900 - 10/23/24 0659 10/23/24 0700 - 10/23/24 0707 Requested LDAs do not have output data documented. Labs in last 18 hours: CBC WBC ?? Hb ?? Plt ?? Hct ?? ANC ?? INR ??, PTT ??, Anti-Xa ?? MCV ?? BMP Na ?? Cl ?? BUN ?? Glu ?? K ?? Co2 ?? Cr ?? Ca ?? iCa ?? Mg ??, Phos ?? Lactate ?? LFT AST ?? AlkPhos ?? T Prot ?? ALK ?? Bili ?? Alb ?? D.Bili ?? Lab Trends: H/H Results from last 7 days Lab Units 10/22/24 0012 10/18/242016 HEMOGLOBIN g/dL 11.7 12.6 HEMATOCRIT % 38.6 39.4 INR Cr Results from last 7 days Lab Units 10/22/24 0012 10/20/24 0501 10/18/242016 CREATININE mg/dL 0.77 0.91 0.88 Medications reviewed. Vital signs reviewed. Labs reviewed. Radiography reviewed. Assessment and Plan: Medical Problems and Relevant Plans Hospital Problems POA * (Principal) SBO (small bowel obstruction) ([facility]) Yes Overview Signed 2024 9:46 AM by Estrellita Hennessy APRN 10/21: s/p LONNIE (Daryl) NGT NPO, mIVF's HTN (hypertension) Yes Overview Addendum 09/08/2024 9:51 AM by Estrellita Hennessy APRN Resume home carvedilol Mood disorder ([facility]) Yes Overview Addendum 09/29/2024 11:28 AM by Estrellita Hennessy APRN Resume home meds Hypothyroidism Yes Overview Addendum 09/08/2024 9:51 AM by Estrellita Hennessy APRN Resumharvey home meds GERD (gastroesophageal reflux disease) Yes Overview Addendum 09/08/2024 9:51 AM by Estrellita Hennessy APRN Resume PPI Emphysema/COPD ([facility]) Yes Overview Addendum 09/29/2024 11:29 AM by Estrellita Hennessy APRN Pulm hygiene, IS, PEP Home inhalers Electrolyte imbalance Yes Overview Signed 09/29/2024 11:31 AM by Estrellita Hennessy APRN Monitor/trend Replete as needed Hyperlipidemia Yes Overview Addendum 09/08/2024 9:51 AM by Estrellita Hennessy APRN Resumharvey home statin Non-Hospital Problems Degenerative disc disease, lumbar Mild obstructive sleep apnea Anal cancer ([facility]) Astigmatism of both eyes with presbyopia Combined form of age-related cataract, both eyes Coronary artery calcification seen on CT scan Diastolic dysfunction Elevated left ventricular end-diastolic pressure (LVEDP) Almazan catheter problem ([facility]) HHD (hypertensive heart disease) Lumbar radiculopathy Vitamin D deficiency At high risk for falls Complication of implanted vaginal mesh, unspecified complication, subsequent encounter Ileostomy present ([facility]) Overview Signed 09/29/2024 11:30 AM by Estrellita Hennessy APRN Monitor output Plan: [ ] DC almazan, TOV [ ] Bolus for decreased UOP Hydronephrosis on KUB Lytes repleted Strict I&O's, Monitor UOP DC'd NG Ok to ADV diet if passing gas TLD: NGT LWSx FEN: NPO, mIVF's Dispo: Home with assistance (initial 24 hour assist) Edited by: Krissy Talley MD at 10/23/2024 [id number] Krissy Talley MD Cosigned by Farnaz Brito MD at 11/02/2024 1:33 PM EDT Associated attestation - Farnaz Brito MD - 11/02/2024 1:33 PM EDT I saw and evaluated the patient with the resident/fellow. I discussed the case with the resident/fellow and agree with the findings and plan as documented. * Nursing Note - Paula Christianson RN - 2024 6:30 PM EDT Pt arrived via bed from pacu s/p laparotomy with lysis of adhesions on 10/21 / pt has a midline abd incision with wound vac and black foam and suction 125 . Ruq illeostomy no output noted. Pt is A&Ox4 emv 15 on 3 liter nc and lungs clear/diminished . Abd soft slightly tender +bs and report belching . F/c was removed in pacu at 1500 pt has not voided yet. Pt has refused pur wick at this time . * Progress Notes - Keren Bro RN - 2024 3:19 PM EDT Case Management Adult Progress Note Roel Cervantes 69 y.o. female CSN: [id number] Admission: 10/18/2024 8:19 PM Primary Problem: SBO (small bowel obstruction) (CMS/HCC) Anticipated Discharge Date: 10/27 Has Discharge Plans Changed? No Medicare Second Notice: Needs IMM prior to DC Additional Comments Per primary treatment team, patient is not medically ready to discharge at this time. CM continues to follow. Keren D Adali, RN * Progress Notes - Namarta Ortega - 2024 9:40 AM EDT Physical Therapy Evaluation Patient Name: Roel Cervantes Today's Date: 2024 PT Discharge Recommendations: Home with assistance (initial 24 hour assist) Equipment Recommended: Patient owns appropriate equipment, None History Roel Cervantes is 69 y.o. female admitted 10/18/2024 for work-up of SBO (small bowel obstruction) ([facility]). Problem List Active Hospital Problems Diagnosis Date Noted SBO (small bowel obstruction) ([facility]) 10/19/2024 Electrolyte imbalance 09/29/2024 Hypothyroidism 06/25/2022 HTN (hypertension) 06/25/2022 GERD (gastroesophageal reflux disease) 06/25/2022 Mood disorder ([facility]) 06/25/2022 Emphysema/COPD ([facility]) 11/17/2014 Hyperlipidemia 10/13/2021 Procedures 10/21/2024 Procedure(s): LAPAROTOMY, EXPLORATORY, WITH LYSIS OF ADHESIONS Past Medical History Patient has a past medical history of Acute embolism and thrombosis of unspecified vein, Acute kidney injury ([facility]) (10/13/2021), YAJAIRA (acute kidney injury) ([facility]) (12/31/2021), Altered mental status (04/10/2023), Anemia (04/10/2023), Anxiety disorder, unspecified, Blood clot in vein, BRBPR (bright red blood per rectum) (03/22/2014), Carpal tunnel syndrome, Cellulitis (04/10/2023), COPD (chronic obstructive pulmonary disease) ([facility]) (06/25/2022), Encounter for assessment for small bowelobstruciton (10/17/2021), GERD (gastroesophageal reflux disease) (06/25/2022), Heart failure (06/25/2022), Hematoma (04/10/2023), Hemorrhage of anus and rectum, HTN (hypertension) (06/25/2022), Hypomagnesemia (10/13/2021), Hypothyroidism (06/25/2022), Latent tuberculosis, 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CMS/HCC), Malignant neoplasm of rectum (CMS/HCC), Numbness (04/10/2023), Obstipation (04/10/2023), Partial small bowel obstruction (CMS/HCC) (10/13/2021), Personal history of diseases of the bl ood and blood-forming organs and certain disorders involving the immune mechanism, Personal historyof other diseases of the circulatory system, Personal history of other diseases of the circulatory system, Personal history of other diseases of the nervous system and sense organs, Personal history of other diseases of the respiratory system, Personal history of other diseases of the respiratory system, Personal history of other endocrine, nutritional and metabolic disease, Personal history of other endocrine, nutritional and metabolic disease, Personal history of other malignant neoplasm of rectum, rectosigmoid junction, and anus, Personal history of other mental and behavioral disorders, Personal history of other mental and behavioral disorders, Pleural effusion (04/10/2023), Pulmonary embolism, bilateral (CMS/HCC) (10/08/2022), Recurrent UTI (04/10/2023), Sacroiliitis (CMS/HCC) (04/10/2023), Sepsis (CMS/HCC) (04/10/2023), Shoulder pain (04/10/2023), Sleep apnea, unspecified, SOB (shortness of breath) (04/10/2023), Urge incontinence (10/31/2020), Urinary retention (04/10/2023), Urinary tract infection in female (03/29/2023), Urinary tract infection with hematuria (03/29/2023), and Wound of back (07/26/2017). Past Surgical History Patient has a past surgical history that includes Hysterectomy (N/A); Hemorrhoid surgery (N/A); percutaneous portal vein catheter (N/A); Embolectomy (N/A); Bladder surgery (N/A); Band hemorrhoidectomy; Cholecystectomy; Rectal surgery; Exploratory laparotomy w/ bowel resection; Colon surgery; Foot surgery; Cataract extraction (Bilateral); Carpal tunnel release (Bilateral); Colonoscopy; and Vagina surgery (10/17/2023). Precautions Medical Precautions: Fall precautions, Post-Surgical precautions Post-Surgical Precautions: abdominal precautions Subjective Patient agreeable to PT session. Patient reporting It's my birthday! Participants in Care Family/Caregiver Present: No Presentation Oxygen Therapy: None (Room air) Lines and Tubes: Telemetry NG/OG [place] Sump Nasogastric 14 Fr Right nostril (Active) Ileostomy RLQ (Active) Urethral Catheter Non-latex;Single lumen;Temperature probe 16 Fr. (Active) Negative Pressure Wound Therapy Abdomen Lower (Active) Peripheral IV 10/21/24 Right Forearm (Active) Peripheral IV 10/21/24 Left Forearm (Active) Pre-Session: Supine, Head of bed elevated, Lines intact Pre-Session Comments: RN agreeable to PT session Post-Session: Head of bed elevated, Lines intact, Supine, RN notified, Call light in reach, Bed alarm (zone 1, 2, 3) Home Living/Set-up Lives With: Spouse (2 roommates) Home Type: Mobile home Home Adaptive Equipment: Rolling walker, Rollator, standard walker, Cane, Wheelchair-manual, showerchair, Hospital bed, Bedside commode Home Layout: One level, Stairs to enter with rails Number of Stairs: 4 Bathroom: Tub/Shower: Tub/Shower combo, Shower chair Bathroom: Toilet: Standard Home Living Comments: Patient wears 2L O2 at night. Has sleep apnea. Prior Level of Function Receives Help From: No assist required prior to admission Level of Mobility: Ambulatory- community Mobility [place]: Independent gait with device (cane or RW) History of Falls: Yes (2 falls in the last 3 months) ADL Performance: Independent Patient/Family Goals Patient wants to go home Objective Pain Patient reporting abdominal pain, unrated. Patient also reporting LUE pain related to IV, area slightly swollen so IV paused- RN aware. Patient premedicated. Patient left in position of comfort. Delirium Screening [place] Agitation Sedation Scale (RASS): Alert and calm Confusion Assessment Method-ICU (CAM-ICU/PCAM-ICU) Feature 3: Altered Level of Consciousness: Negative Cognition Overall Cognitive Status: Within Functional Limits Arousal/Alertness: Appropriate responses to stimuli Mood/Behavior: Alert Orientation Level: Oriented X4 Single Step Commands: Consistently Multi-Step Commands: Consistently Method of Communication: Verbal Vision - Basic Assessment Baseline Vision: Glasses distance Patient Visual Report: Patient reporting blurry vision Right Upper Extremity Examination RUE Assessment: Within Functional Limits Manual Muscle Testing - RUE: Within functional limits Sensation Light Touch: Right Upper Extremity: Intact Left Upper Extremity Examination LUE ROM Assessment LUE Assessment: Within Functional Limits Manual Muscle Testing - LUE Manual Muscle Testing - LUE: Within functional limits Sensation Light Touch: Left Upper Extremity: Intact Right Lower Extremity Examination RLE ROM Assessment RLE Assessment: Within Functional Limits Manual Muscle Testing - RLE Manual Muscle Testing - RLE: Within functional limits Sensation Light Touch: Right Lower Extremity: Mild impairment (pt reports numbness/tingling in LE distal to hip, light touch intact) Left Lower Extremity Examination LLE Assessment: Within Functional Limits Manual Muscle Testing: Within functional limits Sensation Light Touch: Left Lower Extremity: Mild impairment (pt reports numbness/tingling in LE distal to hip, light touch intact) Bed Mobility Bed Mobility Exam: Rolling/Turning Level of [place]: Contact guard Physical/Nonphysical Assist: Supervision, Verbal Cues Bed Mobility Exam: Scooting/Bridging Level of [place]: Contact guard Physical/Nonphysical Assist: Supervision, Verbal Cues Bed Mobility Exam: Supine to Sit Level of [place]: Contact guard Physical/Nonphysical Assist: Supervision, Verbal Cues, Minimal cues Assistive Device: Bed rails Bed Mobility Exam: Sit to Supine Level of [place]: Contact guard Physical/Nonphysical Assist: Supervision, Verbal Cues, Minimal cues Assistive Device: Bed rails Transfers Transfer Exam: Sit to stand Level of [place]: Minimum assist (75% patient's effort) Physical/Nonphysical Assist: Supervision, Verbal Cues, Minimal cues, 1 person + 1 person to manage equipment Assistive Device: Walker, rolling Transfer Exam: Stand to Sit Level of [place]: Contact guard Physical/Nonphysical Assist: Supervision, Verbal Cues, Minimal cues Assistive Device: Walker, rolling Ambulation Device: Rolling walker Assistance: Contact guard assist, Minimal verbal cues Distance : 100ft Ambulation Comments: Patient ambulated with decreased gait speed and path deviations bilaterally with cues for safety awareness and pathfinding Balance Static Sitting Balance Static Sitting-Balance Support: Right upper extremity support, Left upper extremity support, Feet supported Static Sitting-Level of Assistance: Contact guard Dynamic Sitting Balance Dynamic Sitting-Balance Support: Right upper extremity support, Left upper extremity support Dynamic Sitting-Balance: Lateral weight shifts, Anterior/Posterior weight shifts Level of Assistance: Contact guard Static Standing Balance Static Standing-Balance Support: Right upper extremity support, Left upper extremity support Static Standing-Level of Assistance: Contact guard Dynamic Standing Balance Dynamic Standing-Balance Support: Right upper extremity support, Left upper extremity support Dynamic Standing-Balance: Lateral weight shifts, Anterior/Posterior weight shifts Dynamic Standing Level of Assistance: Minimum assistance Participation in Functional Tasks: Minimum assistance Therapeutic Activity (12 minutes) Patient performed bed mobility, sit to/from stand transfers, and ambulation to promote upright activity tolerance, improved independence with functional mobility, and dynamic balance. Pt required frequent verbal, visual, and tactile cues to utilize improved body mechanics and UE support for propulsion and descent from surface and BUE and BLE sequencing while performing log roll for bed mobility for reduced abdominal strain, safety, energy conservation, and for improved independence and balance.The patient reported mild dizziness upon sitting up at EOB that improved with increased time. Skilled intervention also required for line management, monitoring vital signs, and pt preparation for mob ility tasks. Patient's vital signs remained stable throughout mobility. Standardized Assessments [facility] 6-Clicks Mobility Assessment Difficulty patient has turning over in bed (including adjusting bedclothes, sheets, and blankets)?:A little Difficulty patient has sitting down on and standing up from a chair with arms (wheelchair, bedside commode, etc.)?: A little Difficulty patient has moving from lying on back to sitting on the side of the bed?: A little How much help does the patient need moving to and from a bed to a chair (including a wheelchair)?: A little How much help does the patient need to walk in hospital room?: A little How much help does the patient need climbing 3-5 steps with a railing?: A little [facility] 6-Clicks Mobility Assessment Total : 18 No data recorded Assessment The patient participated in initial evaluation and treatment without adverse reactions. She demonstrates mobility slightly below her baseline, but did not have a LOB during session. She will benefit from ongoing skilled IP PT in preparation to return home with decreased fall and readmission risk. Impairments: Decreased endurance, ventilation, and/or gas exchange, Impaired cognition/safety awareness, Impaired gait dynamics/performance, Impaired balance, Impaired functional mobility/transfers, Pain, Impaired sensation/sensory processing, Impaired motor cordination/control Activity Limitations: Inability to ambulate independently, Inability to transfer independently, Inability to ambulate household distances, Inability to ambulate community distances, Inability to complete ADLs independently, Inability to sit independently Participation Restrictions: Self-care, Home management, Work, Community leisure Activity Tolerance: Sitting, Standing, Walking, Tolerates 30 min activity with multiple rests Evaluation/Treatment Tolerance: Patient limited by pain Diagnosis: Impaired functional mobility s/p ex-lap and hospitalization Rehab Potential: Good, to achieve stated therapy goals Barriers to Discharge: Comorbidities Eval Complexity History Profile: 3 or more personal factors and/or comorbidities Clinical Presentation: Evolving clinical presentation with changing characteristics Clinical Decision Making: Moderate complexity PT Recommendations Discharge Destination: Home with assistance (initial 24 hour assist) Discharge Equipment: Patient owns appropriate equipment, None Plan Planned PT Interventions Balance training, Bed mobility training, Gait training, Motor coordination training, Transfer training, Postural re-education, Strengthening, Caregiver training, Functional Mobility PT Frequency 2 - 5 times per week PT Duration 2 weeks Goals PT GOAL DETAILS Time Frame PT Goal 1: The patient will perform supine to/from sit transfers with Mod I 2 weeks PT Goal 2: The patient will perform sit to/from stand transfers with Mod I and AAD 2 weeks PT Goal 3: The patient will ambulate 200 feet with SBA and AAD 2 weeks PT Goal 4: The patient will ascend/descend 4 steps with handrail and SBA 2 weeks Written by Namrata Ortega on 10/22/24 at 10:37 AM. * Progress Notes - Mahsa Winn N - 2024 9:39 AM EDT Occupational Therapy Evaluation Patient Name: Roel Cervantes Today's Date: 2024 OT Discharge Recommendations: Home with 24 hour assistance Equipment Recommended: Patient owns appropriate equipment History Roel Cervantes is 69 y.o. female admitted 10/18/2024 for work-up of SBO (small bowel obstruction) ([facility]). Problem List Active Hospital Problems Diagnosis Date Noted SBO (small bowel obstruction) ([facility]) 10/19/2024 Electrolyte imbalance 09/29/2024 Hypothyroidism 06/25/2022 HTN (hypertension) 06/25/2022 GERD (gastroesophageal reflux disease) 06/25/2022 Mood disorder ([facility]) 06/25/2022 Emphysema/COPD ([facility]) 11/17/2014 Hyperlipidemia 10/13/2021 Procedures 10/21/2024 Procedure(s): LAPAROTOMY, EXPLORATORY, WITH LYSIS OF ADHESIONS Past Medical History Patient has a past medical history of Acute embolism and thrombosis of unspecified vein, Acute kidney injury ([facility]) (10/13/2021), YAJAIRA (acute kidney injury) ([facility]) (12/31/2021), Altered mental status (04/10/2023), Anemia (04/10/2023), Anxiety disorder, unspecified, Blood clot in vein, BRBPR (bright red blood per rectum) (03/22/2014), Carpal tunnel syndrome, Cellulitis (04/10/2023), COPD (chronic obstructive pulmonary disease) ([facility]) (06/25/2022), Encounter for assessment for small bowelobstruciton (10/17/2021), GERD (gastroesophageal reflux disease) (06/25/2022), Heart failure (06/25/2022), Hematoma (04/10/2023), Hemorrhage of anus and rectum, HTN (hypertension) (06/25/2022), Hypomagnesemia (10/13/2021), Hypothyroidism (06/25/2022), Latent tuberculosis, 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[facility]), Malignant neoplasm of rectum ([facility]), Numbness (04/10/2023), Obstipation (04/10/2023), Partial small bowel obstruction ([facility]) (10/13/2021), Personal history of diseases of the bl ood and blood-forming organs and certain disorders involving the immune mechanism, Personal historyof other diseases of the circulatory system, Personal history of other diseases of the circulatory system, Personal history of other diseases of the nervous system and sense organs, Personal history of other diseases of the respiratory system, Personal history of other diseases of the respiratory system, Personal history of other endocrine, nutritional and metabolic disease, Personal history of other endocrine, nutritional and metabolic disease, Personal history of other malignant neoplasm of rectum, rectosigmoid junction, and anus, Personal history of other mental and behavioral disorders, Personal history of other mental and behavioral disorders, Pleural effusion (04/10/2023), Pulmonary embolism, bilateral ([facility]) (10/08/2022), Recurrent UTI (04/10/2023), Sacroiliitis ([facility]) (04/10/2023), Sepsis ([facility]) (04/10/2023), Shoulder pain (04/10/2023), Sleep apnea, unspecified, SOB (shortness of breath) (04/10/2023), Urge incontinence (10/31/2020), Urinary retention (04/10/2023), Urinary tract infection in female (03/29/2023), Urinary tract infection with hematuria (03/29/2023), and Wound of back (07/26/2017). Past Surgical History Patient has a past surgical history that includes Hysterectomy (N/A); Hemorrhoid surgery (N/A); percutaneous portal vein catheter (N/A); Embolectomy (N/A); Bladder surgery (N/A); Band hemorrhoidectomy; Cholecystectomy; Rectal surgery; Exploratory laparotomy w/ bowel resection; Colon surgery; Foot surgery; Cataract extraction (Bilateral); Carpal tunnel release (Bilateral); Colonoscopy; and Vagina surgery (10/17/2023). Precautions Medical Precautions: Fall precautions, Post-Surgical precautions Post-Surgical Precautions: abdominal precautions Subjective Patient agreeable to assessment. Participants in Care Family/Caregiver Present: No Presentation Oxygen Therapy: None (Room air) Lines and Tubes: Telemetry NG/OG [place] Sump Nasogastric 14 Fr Right nostril (Active) Ileostomy RLQ (Active) Urethral Catheter Non-latex;Single lumen;Temperature probe 16 Fr. (Active) Negative Pressure Wound Therapy Abdomen Lower (Active) Peripheral IV 10/21/24 Right Forearm (Active) Peripheral IV 10/21/24 Left Forearm (Active) Pre-Session: Supine, Head of bed elevated, Lines intact Pre-Session Comments: RN agreeable to session Post-Session: Head of bed elevated, Lines intact, Supine, RN notified, Call light in reach, Bed alarm (zone 1, 2, 3) Post-Session Comments: all needs met Home Living/Set-up Lives With: Spouse (2 roommates) Home Type: Mobile home Home Adaptive Equipment: Rolling walker, Rollator, standard walker, Cane, Wheelchair-manual, showerchair, Hospital bed, Bedside commode Home Layout: One level, Stairs to enter with rails Number of Stairs: 4 Bathroom: Tub/Shower: Tub/Shower combo, Shower chair Bathroom: Toilet: Standard Home Living Comments: Patient wears 2L O2 at night. Has sleep apnea. Prior Level of Function Receives Help From: No assist required prior to admission Level of Mobility: Ambulatory- community Mobility [place]: Independent gait with device (cane or RW) History of Falls: Yes (2 falls in the last 3 months) ADL Performance: Independent Patient/Family Goals Statement Patient wishes to return home. Objective Pain Patient reported 7/10 pain in the abdomen and left UE. RN notified. Delirium Screening [place] Agitation Sedation Scale (RASS): Alert and calm Confusion Assessment Method-ICU (CAM-ICU/PCAM-ICU) Feature 3: Altered Level of Consciousness: Negative Cognition Overall Cognitive Status: Within Functional Limits Arousal/Alertness: Appropriate responses to stimuli Mood/Behavior: Alert Orientation Level: Oriented X4 Single Step Commands: Consistently Multi-Step Commands: Consistently Method of Communication: Verbal Vision - Basic Assessment Baseline Vision: Glasses distance Patient Visual Report: Patient reporting blurry vision Right Upper Extremity Examination RUE ROM Assessment RUE Assessment: Within Functional Limits Manual Muscle Testing - RUE: Within functional limits Sensation Light Touch: Right Upper Extremity: Intact Left Upper Extremity Examination LUE ROM Assessment LUE Assessment: Within Functional Limits Manual Muscle Testing - LUE: Within functional limits Sensation Light Touch: Left Upper Extremity: Intact Right Lower Extremity Examination RLE ROM Assessment RLE Assessment: Within Functional Limits Manual Muscle Testing - RLE: Within functional limits Sensation Light Touch: Right Lower Extremity: Mild impairment (pt reports numbness/tingling in LE distal to hip, light touch intact) Left Lower Extremity Examination LLE ROM Assessment LLE Assessment: Within Functional Limits Manual Muscle Testing: Within functional limits Sensation Light Touch: Left Lower Extremity: Mild impairment (pt reports numbness/tingling in LE distal to hip, light touch intact) Bed Mobility Bed Mobility Exam: Rolling/Turning Level of [place]: Contact guard Physical/Nonphysical Assist: Supervision, Verbal Cues Bed Mobility Exam: Scooting/Bridging Level of [place]: Contact guard Physical/Nonphysical Assist: Supervision, Verbal Cues Bed Mobility Exam: Supine to Sit Level of [place]: Contact guard Physical/Nonphysical Assist: Supervision, Verbal Cues, Minimal cues Assistive Device: Bed rails Bed Mobility Exam: Sit to Supine Level of [place]: Contact guard Physical/Nonphysical Assist: Supervision, Verbal Cues, Minimal cues Assistive Device: Bed rails Transfers Transfer Exam: Sit to stand Level of [place]: Minimum assist (75% patient's effort) Physical/Nonphysical Assist: Supervision, Verbal Cues, Minimal cues, 1 person + 1 person to manage equipment Assistive Device: Walker, rolling Transfer Exam: Stand to Sit Level of [place]: Minimum assist (75% patient's effort) Physical/Nonphysical Assist: Supervision, Verbal Cues, Minimal cues Assistive Device: Walker, rolling Functional Mobility Device: Rolling walker Assistance: Contact guard assist, Minimal verbal cues Distance : 100ft Ambulation Comments: Patient completed functional mobility of household chore with CGA and min verbal cues for safety. Balance Static Sitting Balance Static Sitting-Balance Support: Right upper extremity support, Left upper extremity support, Feet supported Static Sitting-Level of Assistance: Contact guard Dynamic Sitting Balance Dynamic Sitting-Balance Support: Right upper extremity support, Left upper extremity support Dynamic Sitting-Balance: Lateral weight shifts, Anterior/Posterior weight shifts Level of Assistance: Contact guard Static Standing Balance Static Standing-Balance Support: Right upper extremity support, Left upper extremity support Static Standing-Level of Assistance: Contact guard Dynamic Standing Balance Dynamic Standing-Balance Support: Right upper extremity support, Left upper extremity support Dynamic Standing-Balance: Lateral weight shifts, Anterior/Posterior weight shifts Dynamic Standing Level of Assistance: Minimum assistance Participation in Functional Tasks: Minimum assistance Self-Care Interventions Self Care/Home Management (ADLs) Time Entry: 11 Patient participates in therapeutic activity with a focus on functional activity tolerance and endurance needed for ADL tasks. Patient required CGA for rolling to right side in preparation for self-care tasks with verbal cues for sequenicng. Once sitting EOB, patient requires CGA for scooting toward EOB in preparation for standing. Patient required min A to complete STS transfer, and functional mobility of household chore with min A for dynamic balance. Patient provided with verbal cues for posture, breathing, and safety/fall prevention. Patient's vitals remain WNL throughout participation. Grooming Grooming Level of Assistance: Contact guard Grooming Where Assessed: Edge of bed Grooming Interventions: While sitting EOB, patient able to brush hair and put hair in pony tail with CGA for balance. Required extended time due to tangles in hair. Lower Extremity Dressing Sock Level of Assistance: Contact guard LE Dressing Where Assessed: Edge of bed LE Dressing Interventions: While sitting EOB, therapist educated patient on completing figure four method to don socks in order to prevent additional pressure and pain in abdomen. Patient able to complete figure four method with good follow through, and pull up socks with CGA for dynamic sitting balance. Standardized Assessments [facility] 6-Click Daily Activities Help from Other: Don/Doff Regular Lower Body Clothings: Little Help From Other: Bathing: Little Help From Other: Toileting: Little Help From Other: Don/Doff Upper Body Clothings: Little Help From Other: Grooming: None Help From Other: Eating Meals: None [facility] 6 Click - Daily Activities Score: 20 No data recorded Assessment Patient tolerated treatment well, with no adverse effects. Patient presented with decreased balance, endurance, and sitting and standing tolerance, sequencing, problem solving, and motor control which limits patients participation with valued occupations. Pt required multiple rest breaks due to lowendurance. Pt encouraged for OOB activity and active participation with skilled session for increased IND with ADLs. Pt educated on importance of OOB activity to increase overall strength and functional mobility. Patient has assistance at home. Therapist anticipates patient will be able to safely return home with 24 hour assist once medically cleared. Skilled time required for line management androom set-up to promote safe environment for treatment. Pt will continue to benefit from skilled OT services in order to promote occupational performance and quality of life. OT Findings: Impaired ADL performance, Impaired IADL performance, Impaired functional mobility, Impaired postural/trunk control, Impaired balance, Decreased endurance/ventilation/gas exchange Evaluation/Treatment Tolerance: Patient limited by fatigue Rehab Potential: Good, to achieve stated therapy goals Eval Complexity Occupational Profile: Expanded review of medical/therapy records and additional review of physical,cognitive, or psychosocial history Performance Deficits: Activities of daily living (ADLs), Instrumental activities of daily living (IADLs), Social participation, Habits, Routines Clinical Decision Making: Moderate Overall Eval complexity: Moderate OT Recommendations Discharge Destination: Home with 24 hour assistance Discharge Equipment: Patient owns appropriate equipment Plan Planned OT Interventions ADL retraining, IADL retraining, Balance training, Strengthening, Functional mobility, Transfer training OT Frequency 2 - 5 times per week OT Duration 2 weeks Goals OT GOAL DETAILS Time Frame OT Goal 1: Patient will complete x2 LB dressing tasks with SBA. 2 weeks OT Goal 2: Patient will complete toilet transfers and andrea care with SBA. 2 weeks OT Goal 3: Patient will stand at the sink x10 minutes to complete grooming/hygiene tasks with SBA. 2 weeks Written by Mahsa Winn on 10/22/24 at 10:51 AM. * Clinician Note - Mahsa Winn - 2024 8:20 AM EDT Occupational Therapy Attempt Patient Name: Roel Cervantes Today's Date: 2024 Patient was attempted to be seen by occupational therapy 2024 for OT Evaluation however (patient in OR). Occupational therapy team will follow-up as schedule permits. Written by Mahsa Winn on 10/22/24 at 8:20 AM. * Progress Notes - Farnaz Trejo MD - 2024 5:13 AM EDT 10/22/24 Roel Cervantes HPI 68 YO F with PMHx significant for COPD (on 2 L at night), PE (finished anticoagulation 05/2024), perforated diverticulitis (s/p total abdominal colectomy with end ileostomy 2020 s/p revision 2021) and multiple prior bowel obstructions requiring adhesiolysis and SBR admitted 10/19/24 for SBO. 10/21: s/p LONNIE (Daryl) Interval: Patient doing well POD 1. Tender, will dc almazan today. Wants to ambulate. Relevant review of systems was obtained as able and is negative unless stated above in HPI. Vital signs: Vitals: 10/23/24 0400 BP: (!) 141/83 Pulse: 77 Resp: 18 Temp: 36.8 ??C (98.3 ??F) SpO2: Physical Exam Gen: Alert and oriented to person, place, time. No acute distress. HEENT: Atraumatic, normocephalic. Mucous membranes moist. Eyes: Pupils grossly symmetric. No scleral icterus. Neck: Supple. No JVD, NGT in place Resp: No respiratory distress, symmetric chest rise, no stridor CV: Regular rate, normotensive, appears well perfused Abd: Soft, appropriately tender, no distention. No guarding or rebound. No masses. Ext: No cyanosis Psych: appropriate affect, interactive and communicative Neuro: Moves all extremities spontaneously, CN II-XII grossly intact Intake/Output Summary (Last 24 hours) at 10/23/2024 0514 Last data filed at 10/23/2024 0445 Gross per 24 hour Intake 2247 ml Output 410 ml Net 1837 ml Lines/Drains/Tubes: Patient Lines/Drains/Airways Status Active Airway None Output by Drain (mL) 10/21/24 0700 - 10/21/24 1859 10/21/24 1900 - 10/22/24 0659 10/22/24 0700 - 10/22/24 1859 10/22/24 190 - 10/23/24 0514 Requested LDAs do not have output data documented. Labs in last 18 hours: CBC WBC ?? Hb ?? Plt ?? Hct ?? ANC ?? INR ??, PTT ??, Anti-Xa ?? MCV ?? BMP Na ?? Cl ?? BUN ?? Glu ?? K ?? Co2 ?? Cr ?? Ca ?? iCa ?? Mg ??, Phos ?? Lactate ?? LFT AST ?? AlkPhos ?? T Prot ?? ALK ?? Bili ?? Alb ?? D.Bili ?? Lab Trends: H/H Results from last 7 days Lab Units 10/22/24 0012 10/18/242016 HEMOGLOBIN g/dL 11.7 12.6 HEMATOCRIT % 38.6 39.4 INR Cr Results from last 7 days Lab Units 10/22/24 0012 10/20/24 0501 10/18/242016 CREATININE mg/dL 0.77 0.91 0.88 Medications reviewed. Vital signs reviewed. Labs reviewed. Radiography reviewed. Assessment and Plan: Medical Problems and Relevant Plans Hospital Problems POA * (Principal) SBO (small bowel obstruction) (CMS/HCC) Yes Overview Signed 2024 9:46 AM by Estrellita Hennessy, TEST LEAD APPLICATION TESTING 10/21: s/p LONNIE (Daryl) NGT NPO, mIVF's HTN (hypertension) Yes Overview Addendum 09/08/2024 9:51 AM by Estrellita Hennessy APRN Resume home carvedilol Mood disorder ([facility]/HCC) Yes Overview Addendum 09/29/2024 11:28 AM by Estrellita Hennessy APRN Resume home meds Hypothyroidism Yes Overview Addendum 09/08/2024 9:51 AM by Estrellita Hennessy APRN Resume home meds GERD (gastroesophageal reflux disease) Yes Overview Addendum 09/08/2024 9:51 AM by Estrellita Hennessy APRN Resume PPI Emphysema/COPD ([facility]) Yes Overview Addendum 09/29/2024 11:29 AM by Estrellita Hennessy APRN Pulm hygiene, IS, PEP Home inhalers Electrolyte imbalance Yes Overview Signed 09/29/2024 11:31 AM by Estrellita Hennessy APRN Monitor/trend Replete as needed Hyperlipidemia Yes Overview Addendum 09/08/2024 9:51 AM by Estrellita Hennessy APRN Resume home statin Non-Hospital Problems Degenerative disc disease, lumbar Mild obstructive sleep apnea Anal cancer ([facility]) Astigmatism of both eyes with presbyopia Combined form of age-related cataract, both eyes Coronary artery calcification seen on CT scan Diastolic dysfunction Elevated left ventricular end-diastolic pressure (LVEDP) Almazan catheter problem ([facility]) HHD (hypertensive heart disease) Lumbar radiculopathy Vitamin D deficiency At high risk for falls Complication of implanted vaginal mesh, unspecified complication, subsequent encounter Ileostomy present ([facility]) Overview Signed 09/29/2024 11:30 AM by Estrellita Hennessy APRN Monitor output Plan: [ ] DC almazan, TOV [ ] Bolus for decreased UOP Hydronephrosis on KUB Lytes repleted Strict I&O's, Monitor UOP TLD: NGT LWSx FEN: NPO, mIVF's Dispo: Home with assistance (initial 24 hour assist) Edited by: Estrellita Hennessy APRN at 2024 [id number] Farnaz Trejo MD Cosigned by Farnaz Brito MD at 11/01/2024 7:50 PM EDT Associated attestation - Farnaz Brito MD - 11/01/2024 7:50 PM EDT I saw and evaluated the patient. I discussed the case with the resident/fellow and agree with the findings and plan as documented. * Clinician Note - Aung Pope MD - 10/21/2024 9:29 PM EDT Images from the original note were not included. [facility] Department of Surgery Division of Acute Care / Emergency General Surgery Post Operative Check: Subjective: Procedure: LONNIE She is resting comfortably in bed. Patient currently reports that pain is well controlled with medications. Currently NPO with an NGT in place and mIVF running. She denies nausea, vomiting, shortnessof breath, chest pain, fevers, chills, or any other acute complaints at this time. Objective: Vitals: Visit Vitals BP 137/83 Pulse 69 Temp 37.1 ??C (98.8 ??F) (Oral) Resp 13 IN/Out: Intake/Output Summary (Last 24 hours) at 10/21/20242128 Last data filed at 10/21/20241999 Gross per 24 hour Intake 1360 ml Output 1280 ml Net 80 ml Physical Exam: GENERAL: Well-developed, well-nourished, not in acute distress CARD: Regular rate RESP: Normal pulmonary effort, symmetric expansion, non-labored, not in respiratory distress, 2L NC GI: Soft, appropriately tender post operatively, non-distended, no guarding or rebound. Incisional vac in place with serosang drainage. Ostom in place without output. Extremities: No swelling, tenderness, or deformity SKIN: Warm, dry, and without rash, sores, or lesions NEURO: Mental status at baseline, oriented to person, place, and time PSYCH: Mood and affect congruent and appropriate to situation Incisions: covered Assessment and Plan: She is s/p ex lap and LONNIE. She is doing well currently. Reports that pain is well controlled and denies any issues at this time. Norah was just emptied with 150 mL out, but unsure when it was emptiedbefore that. Will follow up her UOP closely. - Diet Status: NPO, NGT, mVIF - Anticoagulation/DVT ppx: pLov - MMPC Tylenol, Robaxin, Dilaudid prn - Level of care: Continue Current Level of Care I have answered and addressed all issues and concerns from the patient and nursing staff. I have notified senior resident/attending product promoter sales person with any issues or concerns. Owen Pope MD PGY-1 General Surgery Pager: [phone] * Anesthesia PACU Signout - Blaine Rucker DO - 10/21/2024 5:49 PM EDT Patient: Roel Cervantes Anesthesia Type: general Vitals Value Taken Time BP 108/62 10/21/24 17:45 Temp 37.1 ??C (98.7 ??F) 10/21/24 16:20 Pulse 63 10/21/24 17:48 Resp 16 10/21/24 17:48 SpO2 94 % 10/21/24 17:48 Vitals shown include unfiled device data. Anesthesia PACU Signout Patient location during evaluation: PACU Patient participation: complete - patient participated Level of consciousness: awake Pain management: adequate (pain score 0-3) Airway patency: natural airway Hydration status: acceptable PONV: none Cardiovascular status: acceptable Respiratory status: acceptable, spontaneous ventilation and nonlabored ventilation Discharge Disposition: admit to inpatient unit Cosigned by Staci Workman MD at 2024 7:37 AM EDT Associated attestation - Staci Workman MD - 2024 7:37 AM EDT Signature Only * Op Note - Gui Will MD - 10/21/2024 2:11 PM EDT Operative Note Date: 10/21/24 Location: [facility] Name: Roel Cervantes, : 1955, Diagnoses: Pre-op Diagnosis SBO (small bowel obstruction) (CMS/HCC) Post-op Diagnosis SBO (small bowel obstruction) (CMS/HCC) Procedure(s): Exploratory laparotomy, lysis of adhesions >90 minutes Attending Surgeon(s): * Farnaz Brito - Primary Senior Pharmacy Technician(s): * Farnaz Trejo MD - Resident - Assisting * Gui Will MD - Resident - Assisting Anesthesia: General ASA: III Blood Administration: Blood Product Administration History None Estimated Blood Loss: Minimal Drains: NG/OG Ripley Sump Nasogastric 14 Fr Right nostril (Active) Placement Verification aspiration;auscultation;distal tube length 10/19/24 1202 Tube Placement Length Marking (cm) 70 10/22/24 1200 Luis Alfredo Exit Point with Permanent Marker Checked 10/22/24 1200 Site Assessment Intact 10/22/24 1200 Surrounding Skin Dry;Intact 10/22/24 1200 Secured by Tape 10/22/24 1200 [address] Right Nostril 10/22/24 1200 NG/OG Status Clamped 10/22/24 1200 Drainage Appearance Bile 10/22/24 1200 NG/OG Interventions Skin assessed 10/22/24 1200 Intake (mL) 60 mL 10/21/24 1620 Output (mL) 50 mL 10/22/24 0800 Ileostomy RLQ (Active) Stomal Appliance 2 piece 10/22/24 1200 Site Assessment Clean;Intact 10/22/24 1200 Peristomal Assessment Intact;Clean 10/22/24 1200 Treatment Placement checked 10/22/24 1200 Output (mL) 0 mL 10/22/24 1200 Ileostomy Stool Appearance Watery 10/21/24 1328 Ileostomy Stool Color Green 10/21/24 1328 [REMOVED] Urethral Catheter Non-latex;Single lumen;Temperature probe 16 Fr. (Removed) Site Assessment Clean 10/22/24 1200 CAUTI: Collection Container Standard drainage bag;System closed;Collection container below bladder and tubing free of kinks 10/22/241199 CAUTI: Securement Method Securing device (Describe) 10/22/241199 CAUTI: Specimen Collection Port Covered with Alcohol Cap Yes 10/22/241199 CAUTI: Urinary Catheter Necessity Yes, meets criteria 10/22/241199 CAUTI: Urinary Catheter Necessity Reasons Q1-2 hourly urine output of critically ill patient 10/22/24 1200 Output (mL) 40 mL 10/22/241199 Specimen: None Findings: Adhesions throughout the abdomen with dense adhesions of small bowel within the pelvis, transition point within the right pelvis. Indications: Roel Cervantes is an 69 y.o. female who is having surgery for SBO (small bowel obstruction) ([facility]). She has had multiple admissions for small bowel obstruction managed conservatively with NGT and fluids. Risks, benefits and alternatives were discussed with the patient, and she wasagreeable to proceed to the operating room for exploratory laparotomy, lysis of adhesions, any other indicated procedures. Narrative: The patient was properly identified in the preoperative holding area, then taken to the OR and positioned in the supine position on the operating table. Antibiotics were given preoperatively. SCDs were placed properly on the patient and turned on. General anesthesia was initiated. Time out was properly performed. The patient was prepped and draped in the usual sterile fashion. A midline laparotomy was created along the patients old scar. This was deepened through subcutaneous tissue to the fascia using electrocautery. Fascia was opened along the length of the incision withcare taken to remain extraperitoneal. The peritoneum was then grasped and sharply entered. No bowel injury was created on entry. The peritoneum was opened along the length of the incision. We noted adhesions along the anterior abdominal wall that were thin and filmy. These were lysed sharply using Metzenbaum scissors. Small bowel was taken down from the anterior abdominal wall and into the pelvis. Interloop adhesions were then lysed, we began to run the bowel from proximal to distal until we encountered significant adhesions within the pelvis. There were dense adhesions to the right pelvic sidewall with former anastomosis noted. This was densely adherent to the sidewall and twisted around itself, making this the obvious point of obstruction. This was taken down with care using sharp dissec tion. We completed lysis of adhesions for greater than 90 minutes until we reached the ileostomy and had freed the entirety of the bowel around the ileostomy. Bowel was then again run from proximal to distal from the ligament of Treitz to the level of the ostomy. No serosal tears were noted. There was no need for bowel resection following lysis of adhesions. After this, the abdomen was irrigated.Fascia was then closed using interrupted 0 PDS sutures in [id number] fashion. Soft tissue was irrigated and skin was closed with britton. After the procedure, the patient was awakened, extubated, and taken to the postoperative anesthesiacare unit for recovery. All needle, instrument, and lap counts were correct at the conclusion of the case. Dr. Brito was present and scrubbed for all critical portions of this procedure. There were NO signs of surgical site infection (SSI) present at the time of surgery (PATOS). Complications: None; patient tolerated the procedure well. Submitted by: Gui Will MD - 2024 Cosigned by Farnaz Brito MD at 10/31/2024 2:03 PM EDT Associated attestation - Farnaz Brito MD - 10/31/2024 2:03 PM EDT I was present for the entirety of the procedure(s). * Brief Op Note - Farnaz Trejo MD - 10/21/2024 2:11 PM EDT Date: 10/21/24 Location: [facility] OR Name: Roel Cervantes, : 1955, Diagnoses: Pre-op Diagnosis SBO (small bowel obstruction) (CMS/HCC) Post-op Diagnosis SBO (small bowel obstruction) (CMS/HCC) Procedure(s): Lysis of adhesions Attending Surgeon(s): * Farnaz Brito - Primary Senior Pharmacy Technician(s): * Gui Will MD - Resident - Assisting Anesthesia: General ASA: III Blood Administration: Blood Product Administration History None Estimated Blood Loss: Minimal Drains: NG/OG Ripley Sump Nasogastric 14 Fr Right nostril (Active) Placement Verification aspiration;auscultation;distal tube length 10/19/24 120 Tube Placement Length Marking (cm) 70cm 10/19/24 1202 Site Assessment Clean;Dry;Intact 10/20/241914 Surrounding Skin Intact;Non reddened 10/20/241914 Secured Location Right Nostril 10/20/241914 NG/OG Status Clamped 10/20/242039 Drainage Appearance Bile 10/20/241914 NG/OG Interventions Low intermittant suction 10/20/24 2215 Output (mL) 800 mL 10/21/24 0506 Ileostomy RLQ (Active) Stomal Appliance 2 piece 10/21/24 1328 Site Assessment [place] 10/21/24 1328 Peristomal Assessment Intact 10/21/24 1328 Ileostomy Stool Appearance Watery 10/21/24 1328 Ileostomy Stool Color Green 10/21/24 1328 Urethral Catheter Non-latex;Single lumen;Temperature probe 16 Fr. (Active) Specimen: Findings: lysis of adhesions, no obstructive pathology at conclusion Complications: None; patient tolerated the procedure well. Submitted by: Farnaz Trejo MD - 10/21/2024 Cosigned by Farnaz Brito MD at 2024 4:17 PM EDT * Linda Paris RN - 10/21/2024 9:51 AM EDT Images from the original note were not included. [id number] Preventing a Surgical Site Infection A risk of any surgery is an infection at the surgical site. The surgical site is a cut the surgeon makes in the skin to do the surgery. Surgical site infections can range in type. It may be a minor skin infection. Or it may be severe and include tissue under the skin or other organs. In some cases,a severe infection can cause . The information below tells you: ?? About surgical site infections. ?? What hospitals do to prevent them. ?? How they?re treated if they do occur. ?? What you can do to prevent an infection. Hand washing reduces the risk of infection. What causes a surgical site infection? Germs are everywhere. They?re on your skin, in the air, and on things you touch. Many germs are good. Some are harmful. Surgical site infections occur when harmful germs enter your body through the incision in your skin. Some infections are caused by germs that are in the air or on objects. But most are caused by germs found on and in your own body. Who is at risk for a surgical site infection? Anyone can have a surgical site infection. Your risk is higher if you: ?? Are an older adult. ?? Have a weak immune system. ?? Have other health conditions such as diabetes. ?? Take certain medicines, such as steroids. ?? Are a smoker. ?? Have certain types of surgery, such as abdominal surgery. ?? Have poor nutrition. ?? Are very overweight. ?? Have a surgery that lasts longer than 2 hours. What are the symptoms of a surgical site infection? An infection often shows up as skin redness, pain, and swelling around the incision that gets worse. Later, a cloudy or greenish-yellow fluid may come from the incision. The fluid may smell bad. The incision may pull apart or open up. You are likely to have a fever and may feel very ill. Symptoms can appear at any time. They may happen from hours to weeks after surgery. Implants such as an artificial knee or hip can become infected at any time after the surgery. How is a surgical site infection treated? ?? A surgical site infection is treated with antibiotics. The type of medicine you get will depend on what may be causing the infection. Most serious wound infections need wound care. In some cases, surgery may be needed on the infected wound. ?? An infected skin wound may be reopened and cleaned. A deep wound may need to be packed with gauze. The gauze is changed often until the wound starts to heal from the inside out. Your health care provider will decide the best way to treat your infection. ?? If an infection occurs where an implant is placed, the implant may be removed. ?? If you have an infection deeper in your body, you may need surgery to treat it. What hospitals do to prevent surgical site infections Many hospitals take these steps to help prevent surgical site infections: ?? Handwashing. Before the surgery, your surgeon and all surgery staff scrub their hands and arms with an antiseptic soap. ?? Clean skin. The site where your incision is made is carefully cleaned with an antiseptic solution. ?? Sterile clothing and drapes. The surgical team wears medical uniforms. These are known as scrub suits. They wear long-sleeved surgical gowns, masks, caps, shoe covers, and sterile gloves. Your body is fully covered with a large sterile sheet (sterile drape). There is an opening in the sheet where the incision is made. ?? Clean air. Operating rooms have special air filters. They use positive pressure airflow to prevent unfiltered air from entering the room. ?? Careful use of antibiotics. Antibiotics are given no more than 60 minutes before the incision ismade. They are generally stopped within 24 hours after surgery. This depends on the type of surgery. This helps kill germs but prevents problems that can occur when antibiotics are taken longer. ?? Controlled blood sugar levels. Your blood sugar level may rise. This can be because of the stress of the surgery. Your blood sugar level is watched closely to make sure it stays within a normal range. High blood sugar delays wound healing. This increases the risk of infection. ?? Controlled body temperature. A [id number] temperature during or after surgery prevents oxygen from reaching the wound. This makes it harder for your body to fight infection. Hospitals may warm I.V. fluids, and provide warm-air blankets. Your temperature is watched throughout the surgery. ?? Safe hair removal. Any hair that must be removed is clipped right before the incision, not shaved with a razor. This prevents tiny nicks and cuts where germs can enter. ?? Wound care. After surgery, a closed wound is covered with a sterile dressing for 1 to 2 days. Open wounds are packed with sterile gauze and covered with a sterile dressing. What you can do to prevent a surgical site infection ?? Ask questions. Learn what your hospital is doing to prevent infection. ?? If instructed, shower or bathe with plain soap the night before and the day of your surgery. Follow all instructions you're given. You may be asked to use a special cleanser that you don?t rinse off. ?? If you smoke, stop as long as possible before and after the surgery. Ask your provider about ways to quit. ?? Take antibiotics only when your provider tells you to. Using antibiotics when they?re not neededcan create germs that are harder to kill. Finish the entire prescription of your antibiotics even if you feel better. ?? Ask health care workers to clean their hands with plain soap and water or with an alcohol-based hand workers compensation consultant before and after caring for you. Don?t be afraid to remind them. ?? After surgery, eat healthy foods. Care for your incision as directed by your health care team. When to contact your doctor Contact your provider or seek medical care right away if: ?? The pain at the surgical site gets worse. ?? A red streak, worse redness, or puffiness appears near the incision. ?? Yellowish, cloudy, or bad-smelling fluid leaks from the incision. ?? Your stitches dissolve before the wound heals. ?? You have a fever of 100.4?? F ( 38??C ) or higher, or as advised by your provider. ?? You have a tired feeling that doesn?t go away. Last Reviewed Date: 2024 00:00:00 ?? [id number] [employer]. All rights reserved. This information is not intended as a substitute for professional medical care. Always follow your healthcare professional's instructions. * Sary OnIR - Linda Parham RN - 10/21/2024 9:51 AM EDT Images from the original note were not included. [id number] Colorectal Surgery: Recovering in the Hospital and at Home You have had colorectal (bowel) surgery. When the surgery is done, you?ll be taken to the PACU (postanesthesia care unit). Health care providers will closely keep track of your blood pressure, heart rate, breathing, and surgical areas while you wake from anesthesia. You?ll also get pain medicine asneeded to keep you comfortable. You?ll be moved to a regular hospital room when you're stable. You?ll then be watched closely to besure you?re healing well. Your hospital stay may last from a few days to a week or longer. This depends on how well you progress. Once you are at home, follow instructions to help make sure you have a full recovery. Your healthcare provider will help you take short walks soon after surgery. Right after surgery ?? If you have a urinary catheter, it will likely be taken out shortly after surgery. ?? Your I.V. (intravenous) line will stay in place for a few days to give you fluids and medicines.You will continue to receive pain medicines from the I.V. until you are able to take pain pills by mouth if needed. ?? Soon after surgery, you?ll be up and walking around. This helps improve blood flow and prevent blood clots. It also helps your bowels get back to normal. This will help prevent a bowel slowing or blockage (ileus). Your health care team will listen to the sounds in your belly (your 'bowel sounds'). This is to make sure your bowels are starting to work normally. ?? You?ll be given breathing exercises to keep your lungs clear and prevent infection. Stoma Care If a stoma (ostomy) was made during surgery, your health care providers will show you how to care for it. You may also meet with an ostomy nurse. They will teach you about stoma care. The stoma is anopening in your abdomen where your small or large intestine was connected. It will drain stool and mucus. Some stomas are temporary and some are permanent. It depends on your situation. Eating again In some cases, you may need to wait to eat. But many times, you can start eating lightly soon aftersurgery. This is part of a program for faster recovery. It's called enhanced recovery after surgery. Recovering at home In most cases, you?ll visit your health care provider shortly after leaving the hospital. You can get back to your normal routine in the weeks to about a month after surgery. This depends on your situation. Full recovery may take 4 to 6 weeks or longer. While your body heals, you may tire more easily. You also are likely to have some bloating. Loose stools and more frequent bowel movements are also common. This may get better over time. But it may never fully go away. It will depend on the type of bowel surgery you had and specifics of your case. Resuming everyday activities Being active helps your body heal. But you must protect your healing incisions. Make sure you: ?? Walk as much as you feel up to. ?? Don't do any heavy lifting or vigorous exercise until your health care provider says it?s OK. Follow your provider?s advice about climbing stairs and bathing. ?? Don't drive right away. Wait until you?re no longer taking pain medicines. Also wait until you can readily press down on the brake pedal. When to call your doctor Contact your health care provider or get medical care right away if you have: ?? A fever of 100.4??F (38??C) or higher, or as directed by your provider. ?? Chills. ?? Nausea or vomiting that doesn't get better. ?? Unusual redness, swelling, drainage, or pain around your incision. ?? Leg pain, redness, or swelling. ?? Unexpected diarrhea, or have not passed gas or had a bowel movement for 24 hours. ?? Belly swelling that gets worse or doesn't go away. ?? Pain in the belly or around the stoma that lasts or gets worse. Call 911 Call 911 if you have: ?? Trouble breathing. ?? Chest pain. ?? A large amount of bleeding from your rectum or the surgery site. Last Reviewed Date: 2024 00:00:00 ?? [id number] [employer]. All rights reserved. This information is not intended as a substitute for professional medical care. Always follow your healthcare professional's instructions. * Sary Epps - Linda Parham RN - 10/21/2024 9:51 AM EDT Images from the original note were not included. [id number] Understanding Lysis of Adhesions Lysis of adhesions is a surgery to cut bands of tissue that form between organs. These bands are called adhesions. They are often caused by scar tissue that formed after an earlier surgery. Adhesionscan connect organs to each other. How to say it LY-sihs [id number] Why lysis of adhesions is done Adhesions can cause severe, ongoing pain. Cutting the adhesions helps ease this pain. Adhesions canalso cause blockage of the intestines. This blockage can lead to serious symptoms, such as severe pain and vomiting. It can also cause long- term (permanent) damage to the intestines and can even be fatal. Adhesions in the pelvis can also cause infertility in women. Lysis of adhesions is done to prevent or treat these problems. How lysis of adhesions is done Lysis of adhesions may be done using laparoscopy. This method uses a few small cuts (incisions) in your belly (abdomen). Or it may be done as open surgery, with a large cut. 1. You are given medicine (general anesthesia). This puts you into a deep sleep through the procedure. 2. For a laparoscopy, the surgeon makes 2 to 4 small incisions in your belly. A long, thin, lightedtube (laparoscope) with a camera on the end is placed in one of the cuts. The tube sends pictures of your belly to a video screen. This lets your surgeon see inside your belly. Tiny surgical tools are put through the other small cuts. The surgeon fills your belly with carbon dioxide. This gas makesmore room in your belly so the surgeon can see and work more easily. If open surgery is done, the surgeon makes a large cut in your belly. The laparoscope is not used. 3. The surgeon cuts and removes the adhesions. This lets the organs move more freely. 4. When the surgery is done, the scope and other tools are removed. The cuts are closed. Risks of lysis of adhesions Risks of this surgery include: ?? Infection. ?? Bleeding. ?? Incisional hernia. ?? Damage to abdominal organs. ?? Need to switch to open surgery. ?? Return of the adhesions. ?? Risks of anesthesia. ?? (rare). Last Reviewed Date: 2024 00:00:00 ?? [id number] [employer]. All rights reserved. This information is not intended as a substitute for professional medical care. Always follow your healthcare professional's instructions. * Linda Paris RN - 10/21/2024 9:51 AM EDT Images from the original note were not included. [id number] Abdominal Pain, Adhesions from Surgery Surgery on the belly (abdomen) can cause bands of fibrous scar tissue to form. These are called adhesions. This is the most common side effect of any abdominal surgery. Other conditions that can cause adhesions include Crohn's disease, peritonitis, and pelvic inflammatory disease. They can also develop after radiation treatment. Adhesions can form bands around the intestine and cause a partial orcomplete blockage of the intestinal tract (intestinal obstruction). A blocked intestine will need surgery. Symptoms In many cases, abdominal adhesions do not cause any symptoms. When present, the symptoms may include: ?? Chronic (long-term) belly pain ?? Constipation ?? Nausea and vomiting ?? Bloating ?? Inability to pass gas or stool Adhesions are more common in people who have had 1 or more abdominal surgeries. Diagnosis is made using blood tests, X-ray, CT scan, rectal exam, and (in women) pelvic exam. Abdominal adhesions are lifelong (permanent). They can be treated by surgery to remove the scar tissue. But this treatment may create more scar tissue. And the problem may come back. Pelvic adhesions can cause female infertility. Home care ?? Rest as needed, until feeling better. ?? Eat a diet low in fiber (called a low-residue diet). Foods allowed include refined breads, whiterice, fruit and vegetable juices without pulp, and, tender meats. These foods will pass more easilythrough the intestine. ?? Don't eat whole-grain foods, whole fruits or vegetables, tough meats, seeds, or nuts until your symptoms go away. Follow-up care Follow up with your healthcare provider, or as advised. If X-rays were done, they'll be read by a radiologist. You'll be told if there are any changes. Call 911 Call 911 if any of the following occur: ?? Trouble breathing ?? Chest pain ?? Confusion ?? Very drowsy or having trouble waking up ?? Fainting, dizziness, or loss of consciousness ?? Fast racing heart rate When to get medical advice Call your healthcare provider or get medical care right away if any of these occur: ?? Pain that lasts, gets worse, or moves to the right lower belly ?? Vomiting or diarrhea that is new or gets worse ?? Belly swelling ?? Unable to pass stool for more than 3 days or feeling constipated with belly pain or swelling (even if it has been less than 3 days since you've passed stool) ?? New fever over 100.4??F (38??C), or rising fever ?? Blood in vomit or bowel movements (dark red or black color) ?? Unexpected vaginal bleeding or missed period Last Reviewed Date: 2024 00:00:00 ?? [id number] [employer]. All rights reserved. This information is not intended as a substitute for professional medical care. Always follow your healthcare professional's instructions. * Alocaprice Mich - Linda Parham RN - 10/21/2024 9:51 AM EDT Images from the original note were not included. [id number] Small Bowel Obstruction A small bowel obstruction occurs when part or all of the small intestine (bowel) is blocked. As a result, digestive contents can?t move through the bowel and out of the body correctly. Treatment is needed right away to remove the blockage. This can ease painful symptoms. It can also prevent seriousproblems, such as tissue or bursting (rupture) of the small bowel and infection. Without treatment, a small bowel obstruction can be fatal. Small bowel obstruction can lead to tissue damage and even tissue . Causes of small bowel obstruction A small bowel obstruction can be caused by: ?? Scar tissue (adhesions). This is the most common cause. These may form after belly (abdominal) surgery or an infection. ?? Hernia. A hernia is when an organ pushes through a weak spot or tear in the abdomen wall. Part of the small bowel can push out and be seen as a bulge under the belly. Hernias can also occur internally. ?? Tumors. These can form on the inside or outside of the intestines. ?? Volvulus. This is twisting of the intestines. ?? Intussusception. This is when part of the bowel slides inside another part. ?? Crohn?s disease. ?? Diverticulitis. ?? Gallstones. ?? Swallowed objects, especially in children. Symptoms of small bowel obstruction Common symptoms include: ?? Belly cramping and pain. ?? Belly swelling and bloating. ?? Upset stomach (nausea) and vomiting. ?? Can't pass gas. ?? Can't pass stool (constipation). ?? Diarrhea. Diagnosing small bowel obstruction Your health care provider will ask about your symptoms and health history. You?ll also have a physical exam. Tests may also be done to confirm the problem. These can include: ?? Imaging tests. These provide pictures of the small bowel. Common tests include X-rays and a CT scan. ?? Blood tests. These check for infection and other problems, such as excess fluid loss (dehydration). ?? Upper GI (gastrointestinal) series with a small bowel follow-through. This test takes X-rays of the upper digestive tract from the mouth through the small bowel. An X-ray contrast material is used. The contrast coats the inside of your upper digestive tract so it will show up clearly on X-rays. Treating small bowel obstruction Treatment takes place in a hospital. As part of your care, the following may be done: ?? No food or drink is given by mouth. This allows your bowels to rest. ?? An I.V. (intravenous) line is placed in a vein in your arm or hand. The I.V. line is used to give fluids and medicines. These may be needed to ease pain, nausea, and other symptoms. They may also be needed to treat or prevent infections. ?? A soft, thin, flexible tube (nasogastric tube) is inserted through your nose and into your stomach. The tube is used to remove extra gas and fluid in your stomach so that the bowels can rest. Thishelps ease symptoms, such as pain and swelling. ?? In some cases, surgery is done. This may be needed depending on the cause of the obstruction. During surgery, the blockage is removed. Parts of the bowel may also be removed if there is tissue . Other repairs may be done as well, depending on what caused the blockage. Your health care provider will give you more information about surgery, if needed. ?? You?ll be watched closely in the hospital until you are stable and your symptoms improve. Your provider will tell you when you can go home. Long-term concerns After treatment, most people recover with no lasting effects. If a long part of the bowel is removed, there is a greater chance for lifelong digestive problems. Bowel movements may become irregular. Work with your health care provider to learn the best ways to manage any symptoms you may have, and to protect your health. When to call your doctor Contact your health care provider right away or get immediate medical care if you: ?? Have severe pain. (Call 911.) ?? Have belly swelling or cramping that won?t go away. ?? Can?t pass stool or gas. ?? Have nausea or vomiting (especially if the vomit looks or smells like stool). Last Reviewed Date: 2024 00:00:00 ?? [id number] [employer]. All rights reserved. This information is not intended as a substitute for professional medical care. Always follow your healthcare professional's instructions. * Procedures - Rachel Byrd RN - 10/21/2024 8:18 AM EDTAssociated Order(s): Insert peripheral IV Insert peripheral IV Performed by: Rachel Byrd RN Authorized by: Farnaz Brito MD Hand hygiene: Hand hygiene performed prior to insertion Inserted using aseptic techniques: Yes Preparation: Skin prepped with chg Orientation: Right Location: Forearm Catheter placed: Peripheral IV Catheter size: 20g/2.00in Line Technique: Ultrasound Guidance Number of attempts: 1 IV flushes: Without difficulty and positive blood return noted and IV luer locked Patient tolerance: Patient tolerated the procedure well, there were no complications and age appropriate response IV site covered with: Transparent semipermeable dressing Education provided to: Patient * Clinician Note - Namrata Ortega - 10/21/2024 7:48 AM EDT Physical Therapy Attempt Patient Name: Roel Cervantes Today's Date: 10/21/2024 Patient was attempted to be seen by physical therapy 10/21/2024 for PT Evaluation however patient not appropriate due to medical status (to OR today). Physical therapy team will follow-up. Written by Namrata Ortega on 10/21/24 at 7:48 AM. * Pre-Procedure Note - Nixon Rios MD - 10/21/2024 5:56 AM EDT To OR today (10/21/24) for Exploratory laparotomy, lysis of adhesions, and possible small bowel resection and all other indicated procedures with Dr. Brito and/or associates. - The risk(s), benefit(s), indication(s), contraindication(s), and alternative(s) were explained tothe patient. Specifically, the risks of surgery including, but not limited to, pain, bleeding, infection, hematoma, injury and/or damage to nearby organ(s) and/or structure(s), need for additional marine giuliano/surgeries and/or procedure(s), scarring, numbness of the skin, wound and/or incision complication(s), and complication(s) and/or risk(s) of anesthesia. - Commonly associated risks of the procedure were also discussed with the patient in detail. - The patient participated in the discussion and was/were given ample opportunity and time to ask question(s)/express concern(s). - All question(s) and/or concern(s) were answered/addressed to the patient('s) verbal satisfaction. - Written and informed consent obtained and located in the patient's chart. - Patient NPO since midnight. - Post-operative plan pending findings. Nixon Rios MD [facility] PGY-1 * Hospital Course - Rebecca Cadena APRN - 10/20/2024 5:08 PM EDT Chief Complaint: abd pain, N/V Roel Cervantes is a 68 y.o. female with PMHx significant for COPD (on 2 L at night), PE (finishedanticoagulation 05/2024), perforated diverticulitis (s/p total abdominal colectomy with end ileostomy 2020 s/p revision 2021) and multiple prior bowel obstructions requiring adhesiolysis and SBR who presented to on 10/19/24 with a 1 day of abdominal pain and associated nausea and vomiting. Patient reports her pain is similar to prior episodes of bowel obstructions. She reports she normally empties her bag 3 to 4 times a day however is only emptied a 1 to 2 times a day. She denies other complaints. No chest pain, shortness of breath, fever, chills. Copied from admission H&P. Diagnosis: SBO 10/21: s/p LONNIE >90 minutes (Daryl) Post-operatively she did well. She regained ostomy function and was tolerating an ostomy safe diet. She was deemed appropriate for discharge. She will follow up with Dr. Brito 11/05 for a post-op check and staple removal. * Progress Notes - Teresa Troy MD - 10/20/2024 11:40 AM EDT 10/20/24 Roel Cevrantes HPI 68 YO F with PMHx significant for COPD (on 2 L at night), PE (finished anticoagulation 05/2024), perforated diverticulitis (s/p total abdominal colectomy with end ileostomy 2020 s/p revision 2021) and multiple prior bowel obstructions requiring adhesiolysis and SBR admitted 10/19/24 for SBO. Interval: reports feeling drowsy this morning. Pain controlled. Denies nausea. Ostomy with dark liquid output. Discussed that patient still requires a surgical intervention to prevent further readmissions. Edited by: Teresa Troy MD at 10/20/2024 1142 Relevant review of systems was obtained as able and is negative unless stated above in HPI. Vital signs: Vitals: 10/20/24 0727 BP: (!) 148/79 Pulse: 59 Resp: 15 Temp: 36.7 ??C (98.1 ??F) SpO2: 98% Physical Exam Constitutional: General: She is not in acute distress. HENT: Head: Normocephalic. Eyes: Extraocular Movements: Extraocular movements intact. Cardiovascular: Rate and Rhythm: Normal rate. Pulses: Normal pulses. Pulmonary: Effort: Pulmonary effort is normal. No respiratory distress. Abdominal: General: Abdomen is flat. There is no distension. Palpations: Abdomen is soft. Comments: Improved tenderness, but still present on exam Musculoskeletal: General: Normal range of motion. Cervical back: Normal range of motion. Skin: General: Skin is warm. Neurological: Mental Status: She is alert and oriented to person, place, and time. Psychiatric: Behavior: Behavior normal. Intake/Output Summary (Last 24 hours) at 10/20/2024 1142 Last data filed at 10/19/2024 2337 Gross per 24 hour Intake -- Output 850 ml Net -850 ml Lines/Drains/Tubes: Patient Lines/Drains/Airways Status Active Airway None Output by Drain (mL) 10/18/24 0700 - 10/18/24 1859 10/18/24 1900 - 10/19/24 0659 10/19/24 0700 - 10/19/24 1859 10/19/24 1900 - 10/20/24 0659 10/20/24 0700 - 10/20/24 1142 Requested LDAs do not have output data documented. Labs in last 18 hours: CBC WBC ?? Hb ?? Plt ?? Hct ?? ANC ?? INR ??, PTT ??, Anti-Xa ?? MCV ?? BMP Na 145 Cl 105 BUN 13 Glu 107 (H) K 3.6 Co2 31 (H) Cr 0.91 Ca 8.8 (L) iCa ?? Mg 1.2 (L), Phos 3.7 Lactate ?? LFT AST ?? AlkPhos ?? T Prot ?? ALK ?? Bili ?? Alb ?? D.Bili ?? Lab Trends: H/H Results from last 7 days Lab Units 10/18/242016 HEMOGLOBIN g/dL 12.6 HEMATOCRIT % 39.4 INR Cr Results from last 7 days Lab Units 10/20/24 0501 10/18/242016 CREATININE mg/dL 0.91 0.88 Medications reviewed. Vital signs reviewed. Labs reviewed. Radiography reviewed. Assessment and Plan: Medical Problems and Relevant Plans Hospital Problems POA * (Principal) SBO (small bowel obstruction) ([facility]/HCC) Yes Non-Hospital Problems Partial small bowel obstruction ([facility]/HCC) Overview Addendum 09/29/2024 11:32 AM by Estrellita Hennessy APRN Decreased ileostomy output 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 Serial abd exams Conservative management NGT cLWSx NPO HTN (hypertension) Overview Addendum 09/08/2024 9:51 AM by Estrellita Hennessy APRN Resume home carvedilol Mood disorder ([facility]) Overview Addendum 09/29/2024 11:28 AM by Estrellita Hennessy APRN Resume home meds Hypothyroidism Overview Addendum 09/08/2024 9:51 AM by Estrellita Hennessy APRN Resume home meds GERD (gastroesophageal reflux disease) Overview Addendum 09/08/2024 9:51 AM by Estrellita Hennessy APRN Resume PPI Pulmonary embolism, bilateral ([facility]) Degenerative disc disease, lumbar Emphysema/COPD ([facility]) Overview Addendum 09/29/2024 11:29 AM by Estrellita Hennessy APRN Pulm hygiene, IS, PEP Home inhalers Mild obstructive sleep apnea Anal cancer ([facility]) Astigmatism of both eyes with presbyopia Combined form of age-related cataract, both eyes Compression fracture Coronary artery calcification seen on CT scan Diastolic dysfunction Elevated left ventricular end-diastolic pressure (LVEDP) Almazan catheter problem ([facility]) HHD (hypertensive heart disease) Lumbar radiculopathy Vitamin D deficiency At high risk for falls Complication of implanted vaginal mesh, unspecified complication, subsequent encounter Ileostomy present ([facility]) Overview Signed 09/29/2024 11:30 AM by Estrellita Hennessy APRN Monitor output Electrolyte imbalance Overview Signed 09/29/2024 11:31 AM by Estrellita Hennessy APRN Monitor/trend Replete as needed Hyperlipidemia Overview Addendum 09/08/2024 9:51 AM by Estrellita Hennessy APRN Resume home statin Plan: - to OR 10/21 for ex lap - GG challenge 10/20 - hydronephrosis on kub TLD: NG FEN: NPO, mivf Dispo: pt/ot Edited by: Teresa Troy MD at 10/20/2024 1142 Teresa Troy MD Cosigned by Farnaz Brito MD at 10/30/2024 12:52 PM EDT Associated attestation - Farnaz Brito MD - 10/30/2024 12:52 PM EDT I saw and evaluated the patient with the resident/fellow. I discussed the case with the resident/fellow and agree with the findings and plan as documented. * Procedures - Nikky Carl RN - 10/20/2024 3:07 AM EDTAssociated Order(s): Insert peripheral IV Insert peripheral IV Performed by: Nikky Carl RN Authorized by: Little Mendoza MD Hand hygiene: Hand hygiene performed prior to insertion Inserted using aseptic techniques: Yes Preparation: Skin prepped with alcohol and skin prepped with chg Orientation: Left and upper Location: Arm Catheter placed: Peripheral IV Catheter size: 20g/1.16in Line Technique: Ultrasound Guidance Number of attempts: 3 (first two attempts to right lower arm) IV flushes: Without difficulty and positive blood return noted and IV luer locked Patient tolerance: Patient tolerated the procedure well, age appropriate response and there were nocomplications Patient comfort measures used: Distraction and position of comfort IV site covered with: Transparent semipermeable dressing Education provided to: Patient Comments: Education provided to patient at bedside regarding PIV care, s/s of infection and phlebitis. Patient verbalized understanding. 3CG and/or vein images sent to PACS. Alcohol swab cap(s) applied. * Significant Event - Teresa Troy MD - 10/19/2024 10:12 AM EDT 10/19/24 Roel Cervantes HPI 68 YO F with PMHx significant for COPD (on 2 L at night), PE (finished anticoagulation 05/2024), perforated diverticulitis (s/p total abdominal colectomy with end ileostomy 2020 s/p revision 2021) and multiple prior bowel obstructions requiring adhesiolysis and SBR admitted 10/19/24 for SBO. Interval: admitted overnight. NGT in place. She is voiding without difficulty. Reports suprapubic pain. Nauseous. No gas from stoma today. Edited by: Teresa Troy MD at 10/19/2024 0636 Relevant review of systems was obtained as able and is negative unless stated above in HPI. Vital signs: Vitals: 10/19/24 0900 BP: Pulse: Resp: Temp: SpO2: 100% Physical Exam Constitutional: General: She is not in acute distress. HENT: Head: Normocephalic. Eyes: Extraocular Movements: Extraocular movements intact. Cardiovascular: Rate and Rhythm: Normal rate. Pulses: Normal pulses. Pulmonary: Effort: Pulmonary effort is normal. No respiratory distress. Abdominal: General: Abdomen is flat. Palpations: Abdomen is soft. Tenderness: There is abdominal tenderness. Comments: Ostoma output minimal Musculoskeletal: General: Normal range of motion. Cervical back: Normal range of motion. Skin: General: Skin is warm. Neurological: Mental Status: She is alert and oriented to person, place, and time. Psychiatric: Behavior: Behavior normal. Intake/Output Summary (Last 24 hours) at 10/19/2024 1012 Last data filed at 10/19/2024 0646 Gross per 24 hour Intake -- Output 750 ml Net -750 ml Lines/Drains/Tubes: Patient Lines/Drains/Airways Status Active Airway None Output by Drain (mL) 10/17/24 0700 - 10/17/24 1859 10/17/24 1900 - 10/18/24 0659 10/18/24 0700 - 10/18/24 1859 10/18/24 1900 - 10/19/24 0659 10/19/24 0700 - 10/19/24 1012 Requested LDAs do not have output data documented. Labs in last 18 hours: CBC WBC 8.05 Hb 12.6 Plt 216 Hct 39.4 ANC ?? INR ??, PTT ??, Anti-Xa ?? MCV 88 BMP Na 141 Cl 104 BUN 9 Glu 112 (H) K 4.1 Co2 21 (L) Cr 0.88 Ca 9.3 iCa ?? Mg ??, Phos ?? Lactate ?? LFT AST 22 AlkPhos 82 T Prot 7.4 ALK 11 Bili 0.3 Alb ?? D.Bili ?? Lab Trends: H/H Results from last 7 days Lab Units 10/18/242016 HEMOGLOBIN g/dL 12.6 HEMATOCRIT % 39.4 INR Cr Results from last 7 days Lab Units 10/18/242016 CREATININE mg/dL 0.88 Medications reviewed. Vital signs reviewed. Labs reviewed. Radiography reviewed. 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 Serial abd exams Conservative management NGT cLWSx NPO HTN (hypertension) Overview Addendum 09/08/2024 9:51 AM by Estrellita Hennessy APRN Resume home carvedilol Mood disorder (CMS/HCC) Overview Addendum 09/29/2024 11:28 AM by Estrellita Hennessy APRN Resume home meds Hypothyroidism Overview Addendum 09/08/2024 9:51 AM by Estrellita Hennessy APRN Resume home meds GERD (gastroesophageal reflux disease) Overview Addendum 09/08/2024 9:51 AM by Estrellita Hennessy APRN Resume PPI Pulmonary embolism, bilateral (CMS/HCC) Degenerative disc disease, lumbar Emphysema/COPD (CMS/HCC) Overview Addendum 09/29/2024 11:29 AM by Estrellita Hennessy APRN Pulm hygiene, IS, PEP Home inhalers Mild obstructive sleep apnea Anal cancer (CMS/HCC) Astigmatism of both eyes with presbyopia Combined form of age-related cataract, both eyes Compression fracture Coronary artery calcification seen on CT scan Diastolic dysfunction Elevated left ventricular end-diastolic pressure (LVEDP) Almazan catheter problem (CMS/HCC) HHD (hypertensive heart disease) Lumbar radiculopathy Vitamin D deficiency At high risk for falls Complication of implanted vaginal mesh, unspecified complication, subsequent encounter Ileostomy present (CMS/HCC) Overview Signed 09/29/2024 11:30 AM by Estrellita Hennessy APRN Monitor output Electrolyte imbalance Overview Signed 09/29/2024 11:31 AM by Estrellita Hennessy APRN Monitor/trend Replete as needed Hyperlipidemia Overview Addendum 09/08/2024 9:51 AM by Estrellita Hennessy APRN Resume home statin Plan: [ ] f/u GG - GG challenge ongoing 10/19 - NGT for N/V - NPO - OR this admission - Monitor bowel function - hydronephrosis on kub Edited by: Teresa Troy MD at 10/19/2024 0636 Teresa Troy MD * Progress Notes - Keren Bro RN - 10/19/2024 10:00 AM EDT Case Management Adult Progress Note Roel Cervantes 68 y.o. female CSN: [id number] Admission: 10/18/2024 8:19 PM Primary Problem: SBO (small bowel obstruction) ([facility]) Per primary treatment team, patient is not medically ready to discharge today. NGT in place. GG challenge pending. CM continues to follow. Keren Bro RN * H&P - Kendall Schwab MD - 10/19/2024 12:38 AM EDTAssociated Order(s): Consult to Emergency General Surgery Images from the original note were not included. [facility] Department of Surgery Division of Acute Care / Emergency General Surgery History & Physical Note Reason for Consult: pSBO Requesting Service: Emergency Department Consult Date and Time: 10/19/2024 2341 Consult to Emergency General Surgery Consult performed by: Kendall Schwab MD Consult ordered by: Corby Ramos MD Subjective History of Present Illness: Chief Complaint: abd pain, N/V Roel Cervantes is a 68 y.o. female with PMHx significant for COPD (on 2 L at night), PE (finishedanticoagulation 05/2024), perforated diverticulitis (s/p total abdominal colectomy with end ileostomy 2020 s/p revision 2021) and multiple prior bowel obstructions requiring adhesiolysis and SBR who presented to on 10/19/24 with a 1 day of abdominal pain and associated nausea and vomiting. Patient reports her pain is similar to prior episodes of bowel obstructions. She reports she normally empties her bag 3 to 4 times a day however is only emptied a 1 to 2 times a day. She denies other complaints. No chest pain, shortness of breath, fever, chills. Review of Systems: A 14 point review of systems was reviewed and is negative except as mentioned inthe HPI. History Obtained From: Patient Past Medical History: Medical History[1] Allergies And Reactions: Allergies[2] Past Surgical History: Surgical History[3] Family Medical History: Family History[4] Social History: Social History Socioeconomic History Marital status: Spouse name: Not on file Number of children: Not on file Years of education: Not on file Highest education level: Not on file Occupational History Not on file Tobacco Use Smoking status: Former Current packs/day: 0.00 Types: Cigarettes Quit date: 2018 Years since quittin.3 Smokeless tobacco: Never Vaping Use Vaping status: Never Used Substance and Sexual Activity Alcohol use: Not Currently Alcohol/week: 1.0 standard drink of alcohol Types: 1 Glasses of wine per week Comment: occasionally Drug use: Not Currently Types: Marijuana Comment: On occasion mostly to be able to slee. Sexual activity: Defer Other Topics Concern Not on file Social History Narrative Merged History Encounter Social Drivers of Health Financial Resource Strain: Low Risk (06/13/2023) Overall Financial Resource Strain (CARDIA) Difficulty of Paying Living Expenses: Not very hard Food Insecurity: No Food Insecurity (10/01/2024) Hunger Vital Sign Worried About Running Out of Food in the Last Year: Never true Ran Out of Food in the Last Year: Never true Transportation Needs: No Transportation Needs (10/01/2024) PRAPARE - Transportation Lack of Transportation (Medical): No Lack of Transportation (Non-Medical): No Physical Activity: Not on file Stress: Not on file Social Connections: Not on file Intimate Partner Violence: Not At Risk (10/01/2024) Humiliation, Afraid, Rape, and Kick questionnaire Fear of Current or Ex-Partner: No Emotionally Abused: No Physically Abused: No Sexually Abused: No Housing Stability: Low Risk (10/01/2024) Housing Stability Vital Sign Unable to Pay for Housing in the Last Year: No Number of Times Moved in the Last Year: 0 Homeless in the Last Year: No Immunizations: Immunization History Administered Date(s) Administered Influenza, injectable, quadrivalent, preservative free 03/28/2016, 05/05/2018, 04/06/2019, 03/28/2020, 05/02/2021, 03/04/2023 Influenza, seasonal, injectable, preservative free 05/24/2017, 05/05/2018 Pfizer-BioNTech COVID-19 Bivalent (Bonilla Cap) 12+ years (yocasta-sucrose) 06/27/2022 Pfizer-BioNTech COVID-19 Vaccine (Field Cap) 12+ years (yocasta-sucrose) 09/07/2021 Pfizer-BioNTech COVID-19 Vaccine (Purple Cap) 12+ 03/06/2021, 03/27/2021 Pneumococcal 20-marcos Conj Vaccine 03/07/2023 Pneumococcal Conjugate PCV 13 06/15/2014 Rsvpref, Recombinant, Protein Subunit, Adjuvent 12/03/2023 Tdap 01/15/2015 I have updated and confirmed the past medical, surgical, family and social history. Home Medications: Prior to Admission medications Medication Sig Start Date End Date Taking? Authorizing Provider albuterol 108 (90 Base) MCG/ACT inhaler Inhale 2 puffs 4 (four) times a day as needed for shortnessof breath. Provider, MD Tiff alendronate (Fosamax) 70 MG tablet Take 1 tablet by mouth every 7 (seven) days. Take in the morningwith a full glass of water, on an empty stomach, and do not take anything else by mouth or lie downfor the next 30 min. Tiff Kincaid MD buPROPion (Wellbutrin) 75 MG tablet Take 2 tablets by mouth in the morning and 2 tablets before bedtime. 02/12/23 Tiff Kincaid MD ergocalciferol 1.25 MG (03765 UT) capsule Take 1 capsule by mouth 1 (one) time per week. 03/19/24 Tiff Kincaid MD gabapentin (Neurontin) 100 MG capsule Take 1 capsule by mouth in the morning and 1 capsule before bedtime. Tiff Kincaid MD levothyroxine (Synthroid, Levoxyl) 50 MCG tablet Take 1 tablet by mouth every morning. Tiff Kincaid MD methenamine hippurate (Hiprex) 1 g tablet Take 1 tablet (1 g) by mouth 2 (two) times a day. Vicky Alonzo APRN Multiple Vitamin (multivitamin) tablet Take 1 tablet by mouth in the morning. Tiff Kincaid MD ondansetron ODT (Zofran-ODT) 4 MG disintegrating tablet Dissolve 1 tablet on the tongue every 6 hours as needed for nausea or vomiting. 10/01/24 Yuki Shankar APRN oxyCODONE-acetaminophen (Percocet) 5-325 MG tablet Take 1 tablet by mouth every 8 hours as needed for severe pain. Tiff Kincaid MD pantoprazole (Protonix) 40 MG EC tablet Take 1 tablet by mouth in the morning and 1 tablet before bedtime. Do not crush, chew, or split. Tiff Kincaid MD potassium chloride CR (Klor-Con M20) 20 MEQ ER tablet Take 1 tablet by mouth in the morning. Do notcrush or chew. Tiff Kincaid MD rOPINIRole (Requip) 0.5 MG tablet Take 1 tablet by mouth nightly. 02/28/24 Tiff Kincaid MD rosuvastatin (Crestor) 20 MG tablet Take 1 tablet by mouth nightly. Tiff Kincaid MD Stiolto Respimat 2.5-2.5 MCG/ACT aerosol solution inhaler Inhale 2 Inhalations daily. 10/01/22 Tiff Kincaid MD tiZANidine (Zanaflex) 4 MG tablet Take 1 tablet by mouth every 8 hours as needed for muscle spasms.Tiff Kincaid MD traZODone (Desyrel) 100 MG tablet Take 1-2 tablets by mouth nightly. Provider, HistoricalMD Anti-Thrombotic Medications: Is this patient taking warfarin, new oral anti-coagulant, or anti-platelet medication? No If Yes, What Medication: N/A Current Hospital Medications: Current Medications[5] Objective Objective: Visit Vitals BP (!) 170/104 Pulse 86 Temp 36.8 ??C (98.2 ??F) Wt 70.3 kg (154 lb 15.7 oz) SpO2 92% BMI 27.45 kg/m?? @ Physical Exam: Physical Exam General: Chronically ill-appearing, no acute distress HEENT: Normocephalic, atraumatic. MMM. Trachea midline CV: Hemodynamically stable. RRR. No LE edema. Good cap refill. Pulm: Regular work of breathing. Equal chest rise bilaterally. Abd: soft, diffusely tender with voluntary guarding, distended ostomy with minimal output in bag Ext: atraumatic, no deformities Neuro: GCS 15, CN grossly intact Psych: normal behavior, normal mood Skin: warm, dry, no obvious lesions Laboratory: CBC WBC 8.05 Hb 12.6 Plt 216 Hct 39.4 ANC ?? INR ??, PTT ??, Anti-Xa ?? MCV 88 BMP Na 141 Cl 104 BUN 9 Glu 112 (H) K 4.1 Co2 21 (L) Cr 0.88 Ca 9.3 iCa ?? Mg ??, Phos ?? Lactate ?? LFT AST 22 AlkPhos 82 T Prot 7.4 ALK 11 Bili 0.3 Alb ?? D.Bili ?? Imaging: CT Abdomen Pelvis w IV Contrast Result Date: 10/18/2024 1. Similar to prior there are multiple loops of dilated small bowel with similar transition point in the left lower abdomen favored to represent at least partial obstruction. CRITICAL RESULT: No COMMUNICATION: These findings were discussed via secure chat with MISHEL MARINELLI on 10/18/2024 11:21 PM by Salinas Ricci with acknowledgment of the results . Preliminary report signed by Salinas Ricci DO on 10/18/2024 11:23 PM By electronically signing this report, I, the attending physician, attest that I have personally reviewed the images/data for the above examination(s) and agree with the final edited report. Drafted by Salinas Ricci DO on 10/18/2024 11:13 PM Final report signed by Dominguez Marroquin MD on 10/18/2024 11:40 PM XR Chest 1 View Result Date: 10/18/2024 Right lower lung opacification favors component of known Bochdalek hernia. Additional mild left basilar scarring and atelectasis without acute focal consolidation. No pneumothorax. No significant cardiomegaly. No acute osseous abnormality. CRITICAL RESULT: No. COMMUNICATION: Per this written report. Drafted by Giorgio Cook MD on 10/18/2024 9:03 PM Final report signed by Giorgio Cook MD on 10/18/2024 9:07 PM Radiographic Interpretation: I have reviewed the imaging above and agree with the radiologist interpretation. @OBJECTIVEED@ Assessment/Plan Assessment & Plan: Roel Cervantes is a 68 y.o. female with PMHx significant for COPD (on 2 L at night), PE (finishedanticoagulation 05/2024), perforated diverticulitis (s/p total abdominal colectomy with end ileostomy 2020 s/p revision 2021) and multiple prior bowel obstructions requiring adhesiolysis and SBR who presented to on 10/19/24 with a 1 day of abdominal pain and associated nausea and vomiting. Patient recently admitted twice for partial small bowel obstruction that resolved without operative intervention. On exam, hemodynamically stable. Abdomen distended and ostomy with minimal output in bag. No leukocytosis or electrolyte abnormalities. CT scan demonstrating small bowel obstruction with gradual transition point. Discussed findings with the patient. Discussed that she has had recurrent partial small-bowel obstructions and will likely require operative intervention. She is at high risk foroperative intervention as she has had prior adhesiolysis for greater than 2 hours. Previous op notereports only 140 cm of small bowel remaining. We will admit to SGE, NG decompression and bowel rest. This Consult, Assessment, and Plan has been discussed with Dr. Mendoza, Attending Physician Kendall Schwab MD [1] Past Medical History: Diagnosis Date Acute embolism and thrombosis of unspecified vein Blood clot in vein Acute kidney injury (CMS/HCC) 10/13/2021 - Likely from acute vomiting with onset of abdominal pain. - mIVF @ 75 mL/hr. YAJAIRA (acute kidney injury) (CMS/HCC) 12/31/2021 IVF hydration, monitor Cr, avoid nephrotoxins Altered mental status 04/10/2023 Anemia 04/10/2023 Anxiety disorder, unspecified Anxiety Blood clot in vein BRBPR (bright red blood per rectum) 03/22/2014 Anal hemorrhage Carpal tunnel syndrome surgery both wrist Cellulitis 04/10/2023 COPD (chronic obstructive pulmonary disease) ([facility]) 06/25/2022 Encounter for assessment for small bowel obstruciton 10/17/2021 GERD (gastroesophageal reflux disease) 06/25/2022 Heart failure 06/25/2022 Hematoma 04/10/2023 Hemorrhage of anus and rectum Rectal bleeding HTN (hypertension) 06/25/2022 Hypomagnesemia 10/13/2021 - IV replacement started in ED. - Follow-up labs. Hypothyroidism 06/25/2022 Latent tuberculosis Latent tuberculosis Malignant neoplasm of anal canal ([facility]) Squamous cell carcinoma of anal canal Malignant neoplasm of rectum ([facility]) Rectum cancer Numbness 04/10/2023 Obstipation 04/10/2023 Personal history of diseases of the blood and blood-forming organs and certain disorders involving the immune mechanism History of anemia Personal history of other diseases of the circulatory system History of angina pectoris Personal history of other diseases of the circulatory system History of hypertension Personal history of other diseases of the nervous system and sense organs History of sleep apnea Personal history of other diseases of the respiratory system History of asthma Personal history of other diseases of the respiratory system History of chronic obstructive lung disease Personal history of other endocrine, nutritional and metabolic disease History of hyperlipidemia Personal history of other endocrine, nutritional and metabolic disease History of hypothyroidism Personal history of other malignant neoplasm of rectum, rectosigmoid junction, and anus History of Squamous cell carcinoma of anal canal Personal history of other mental and behavioral disorders History of bipolar disorder Personal history of other mental and behavioral disorders History of depression Pleural effusion 04/10/2023 Recurrent UTI 04/10/2023 Sacroiliitis ([facility]) 04/10/2023 Sepsis ([facility]) 04/10/2023 Shoulder pain 04/10/2023 Sleep apnea, unspecified Sleep disorder breathing SOB (shortness of breath) 04/10/2023 Urge incontinence 10/31/2020 Urinary retention 04/10/2023 Urinary tract infection in female 03/29/2023 Urinary tract infection with hematuria 03/29/2023 Wound of back 07/26/2017 [2] Allergies Allergen Reactions Trimethoprim Hives Codeine Itching, Nausea and Rash Dexamethasone Itching and Hives Sulfa Drugs Rash and Other - please document in the comment field Nausea/Vomiting Ibuprofen Rash and Other - please document in the comment field nausea [3] Past Surgical History: Procedure Laterality Date BAND HEMORRHOIDECTOMY BLADDER SURGERY N/A Bladder surgery from [facility] CARPAL TUNNEL RELEASE Bilateral CATARACT EXTRACTION Bilateral CHOLECYSTECTOMY COLON SURGERY total adominal colectomy COLONOSCOPY EMBOLECTOMY N/A Arterial Embolectomy By Femoral Incision from [facility] EXPLORATORY LAPAROTOMY W/ BOWEL RESECTION FOOT SURGERY HEMORRHOID SURGERY N/A Hemorrhoidectomy from [facility] HYSTERECTOMY N/A Hysterectomy from [facility] PERCUTANEOUS PORTAL VEIN CATHETER N/A Percutaneous Portal Vein Catheter Placement from [facility] RECTAL SURGERY MULTIPLE VAGINA SURGERY 10/17/2023 bladder mesh excision [4] Family History Problem Relation Name Age of Onset Conversions - Other Mother Drug action Alcohol abuse Mother Cardiac disorder Mother Depression Mother Uterine cancer Mother Conversions - Other Father cerebral infarction Alcohol abuse Father Cardiac disorder Father Depression Father Hypertension Father Conversions - Other Sister Drug action Alcohol abuse Sister Depression Sister Hypertension Sister Cerebral aneurysm Brother Depression Brother Hypertension Brother Cerebral aneurysm Sibling Depression Daughter Depression Son Anesthesia problems Neg Hx Malig Hyperthermia Neg Hx [5] Current Facility-Administered Medications Medication Dose Route Frequency Provider Last Rate Last Admin ondansetron (Zofran) injection 4 mg 4 mg Intravenous q6h PRN Parth Hardy MD 4 mg at 10/19/24 0023 Current Outpatient Medications Medication Sig Dispense Refill albuterol 108 (90 Base) MCG/ACT inhaler Inhale 2 puffs 4 (four) times a day as needed for shortnessof breath. alendronate (Fosamax) 70 MG tablet Take 1 tablet by mouth every 7 (seven) days. Take in the morningwith a full glass of water, on an empty stomach, and do not take anything else by mouth or lie downfor the next 30 min. buPROPion (Wellbutrin) 75 MG tablet Take 2 tablets by mouth in the morning and 2 tablets before bedtime. ergocalciferol 1.25 MG (58330 UT) capsule Take 1 capsule by mouth 1 (one) time per week. gabapentin (Neurontin) 100 MG capsule Take 1 capsule by mouth in the morning and 1 capsule before bedtime. levothyroxine (Synthroid, Levoxyl) 50 MCG tablet Take 1 tablet by mouth every morning. methenamine hippurate (Hiprex) 1 g tablet Take 1 tablet (1 g) by mouth 2 (two) times a day. 60 tablet 11 Multiple Vitamin (multivitamin) tablet Take 1 tablet by mouth in the morning. ondansetron ODT (Zofran-ODT) 4 MG disintegrating tablet Dissolve 1 tablet on the tongue every 6 hours as needed for nausea or vomiting. 20 tablet 0 oxyCODONE-acetaminophen (Percocet) 5-325 MG tablet Take 1 tablet by mouth every 8 hours as needed for severe pain. pantoprazole (Protonix) 40 MG EC tablet Take 1 tablet by mouth in the morning and 1 tablet before bedtime. Do not crush, chew, or split. potassium chloride CR (Klor-Con M20) 20 MEQ ER tablet Take 1 tablet by mouth in the morning. Do notcrush or chew. rOPINIRole (Requip) 0.5 MG tablet Take 1 tablet by mouth nightly. rosuvastatin (Crestor) 20 MG tablet Take 1 tablet by mouth nightly. Stiolto Respimat 2.5-2.5 MCG/ACT aerosol solution inhaler Inhale 2 Inhalations daily. tiZANidine (Zanaflex) 4 MG tablet Take 1 tablet by mouth every 8 hours as needed for muscle spasms. traZODone (Desyrel) 100 MG tablet Take 1-2 tablets by mouth nightly. Cosigned by Little Mendoza MD at 10/19/2024 1:19 AM EDT Associated attestation - Little Mendoza MD - 10/19/2024 1:19 AM EDT I saw and evaluated the patient with the resident/fellow. I discussed the case with the resident/fellow and agree with the findings and plan as documented. 68 yo female with prior TAC and end ileostomy and multiple SBOs requiring LONNIE and SBR who presents with recurrent SBO symptoms. Ileostomy still with some output, albeit decreased. Has pSBO. Transition point on CT is similar to the findings on CT from her most recent admission. - NGT for N/V - NPO - Monitor bowel function - Patient is interested in surgery for adhesiolysis. She was previously planned for a clinic visit to discuss elective adhesiolysis. Will continue these discussions with the patient during this hospitalization. Little Mendoza MD, PhD Acute Care Surgery, Trauma and Surgical Critical Care * ED Provider Notes - Nigel Osborn MD - 10/18/2024 7:41 PM EDT - HPI Chief Complaint Patient presents with Abdominal Pain Vomiting PIT NOTE Roel Cervantes is a 68 y.o. female with a h/o COPD, heart failure, cholecystectomy, and bowel resection who presents to the ED with abdominal pain, vomiting. Pt c/o abdominal pain and vomiting. Pt states she thinks she has another SBO. Pt reports SBO in August. Pt c/o increased SOA secondary to abd ominal pain/vomiting. Pt denies urinary symptoms. Pt denies chest pain, cough, and diarrhea. Pt denies any other complaints at this time. 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 I agreewith the HPI as above Patient History Medical History[1] Surgical History[2] Family History[3] Social History[4] Allergies: Allergies[5] Physical Exam ED Triage Vitals [10/18/24 1944] Temp Heart Rate Resp BP 36.4 ??C (97.5 ??F) 96 18 (!) 146/95 SpO2 Temp Source Heart Rate Source Patient Position 94 % Oral -- Sitting BP Location FiO2 (%) Right arm -- Physical Exam Constitutional: General: She is not in acute distress. HENT: Head: Normocephalic. Comments: No facial swelling Mouth/Throat: Mouth: Mucous membranes are moist. Pharynx: Oropharynx is clear. Cardiovascular: Rate and Rhythm: Normal rate. Pulmonary: Effort: Pulmonary effort is normal. No respiratory distress. Breath sounds: Normal air entry. Comments: Speaking full sentences. Symmetric chest rise Abdominal: General: There is no distension. Tenderness: There is abdominal tenderness. Musculoskeletal: General: No deformity. Normal range of motion. Cervical back: Normal range of motion. Comments: Atraumatic, moves all extremities spontaneously Neurological: Mental Status: She is alert. Mental status is at baseline. Comments: Awake Psychiatric: Behavior: Behavior normal. [place] Coma Scale Score: 15 ED Course & MDM Date/Time: 10/18/2024/7:58 PM Scribe Attestation: This note was dictated to me, Mahsa Alvarado, acting as a scribe for Dr. Mishel Marinelli DO. Attending Attestation: The documentation was recorded by Mahsa Alvarado acting as scribe in my presence at the time of the encounter and accurately reflects the service I personally performed. - Assessment: 68 y.o. female presents to ED with complaint of abdominal pain with decreased ostomy output and concern that she has a partial bowel obstruction. It should be noted that the chronic conditions includes multiple bowel surgeries. This complicates the clinical picture because it Comorbidities: may be exacerbating symptoms and increases the risk for morbidity Differential Diagnosis: He left small-bowel obstruction, partial small-bowel obstruction, metabolicderangement, pancreatitis In order to fully explore the differential diagnosis the following treatments and tests were ordered: ED Medication Administration from 10/18/2024 1941 to 10/18/2024 2338 Date/Time Order Dose Route Action 10/18/20242022 EDT morphine PF 4 mg 4 mg Intravenous Given 10/18/20242022 EDT ondansetron (Zofran) injection 4 mg 4 mg Intravenous Given 10/18/20242046 EDT ipratropium-albuterol (Duo-Neb) 0.5-2.5 mg/3 mL nebulizer solution 3 mL 3 mL Nebulization Given 10/18/20242244 EDT morphine PF 4 mg 4 mg Intravenous Given 10/18/20242254 EDT iohexol (OMNIPaque) 300 MG/ML injection 100 mL 100 mL Intravenous Given All Other Orders Ordered Status Ordering Provider 10/18/242050 Troponin T, High Sensitivity, 2 Hour, Plasma PROCEDURE ONCE Final result MISHEL MARINELLI 10/18/241956 CT Abdomen Pelvis w IV Contrast Once Preliminary result MISHEL MARINELLI 10/18/241956 Troponin now and 120 min STAT Final result MISHEL MARINELLI 10/18/241956 EKG now - STAT (adult) Once Preliminary result MISHEL MARINELLI 10/18/241956 XR Chest 1 View One time imaging Final result MISHEL MARINELLI 10/18/241956 CMP STAT Final result MISHEL MARNIELLI 10/18/241956 CBC STAT Final result MISHEL MARINELLI 10/18/241956 Lipase STAT Final result MISHEL MARINELLI 10/18/241956 Lactic acid, venous STAT Final result MISHEL MARINELLI ED Course as of 10/18/24 2338 Sun Oct 18, 20242333 Lipase: 20 [BR] 2336 Lactate: 1.0 Lowest concern for pancreatitis and bowel ischemia [BR] 2336 Troponin T, High Sensitivity, 0 Hour(!): 23 [BR] 7 Troponin T, High Sensitivity, 2 Hour(!): 24 Non concerning for ACS [BR] 7 CBC(!) No acutely actionable abnormalities and CBC or CMP [BR] 8 CMP(!) [BR] 2337 XR Chest 1 View Right lower lung opacification favors component of known Bochdalek hernia. Additional mild left basilar scarring and atelectasis without acute focal consolidation. No pneumothorax. No significant cardiomegaly. No acute osseous abnormality. [BR] 8 CT Abdomen Pelvis w IV Contrast CT abdomen and pelvis concerning for partial bowel obstruction [BR] ED Course User Index [BR] Nigel Osborn MD Social Determinates of Health Risks (including Economic Stability, Education and level of understanding, Healthcare access and quality and concerning social factors): Lives far away Ultimately, this patient was was signed out to the oncoming provider (Signed Out) Patient care assumed by oncoming provider, Antony, at shift change, tentative plan at the time of sign-out was follow up on Surgery Recs ED Prescriptions None - [1] Past Medical History: Diagnosis Date Acute embolism and thrombosis of unspecified vein Blood clot in vein Acute kidney injury (CMS/[facility]) 10/13/2021 - Likely from acute vomiting with onset of abdominal pain. - mIVF @ 75 mL/hr. YAJAIRA (acute kidney injury) (CMS/HCC) 12/31/2021 IVF hydration, monitor Cr, avoid nephrotoxins Altered mental status 04/10/2023 Anemia 04/10/2023 Anxiety disorder, unspecified Anxiety Blood clot in vein BRBPR (bright red blood per rectum) 03/22/2014 Anal hemorrhage Carpal tunnel syndrome surgery both wrist Cellulitis 04/10/2023 COPD (chronic obstructive pulmonary disease) (CMS/HCC) 06/25/2022 Encounter for assessment for small bowel obstruciton 10/17/2021 GERD (gastroesophageal reflux disease) 06/25/2022 Heart failure 06/25/2022 Hematoma 04/10/2023 Hemorrhage of anus and rectum Rectal bleeding HTN (hypertension) 06/25/2022 Hypomagnesemia 10/13/2021 - IV replacement started in ED. - Follow-up labs. Hypothyroidism 06/25/2022 Latent tuberculosis Latent tuberculosis Malignant neoplasm of anal canal (CMS/HCC) Squamous cell carcinoma of anal canal Malignant neoplasm of rectum (CMS/HCC) Rectum cancer Numbness 04/10/2023 Obstipation 04/10/2023 Personal history of diseases of the blood and blood-forming organs and certain disorders involving the immune mechanism History of anemia Personal history of other diseases of the circulatory system History of angina pectoris Personal history of other diseases of the circulatory system History of hypertension Personal history of other diseases of the nervous system and sense organs History of sleep apnea Personal history of other diseases of the respiratory system History of asthma Personal history of other diseases of the respiratory system History of chronic obstructive lung disease Personal history of other endocrine, nutritional and metabolic disease History of hyperlipidemia Personal history of other endocrine, nutritional and metabolic disease History of hypothyroidism Personal history of other malignant neoplasm of rectum, rectosigmoid junction, and anus History of Squamous cell carcinoma of anal canal Personal history of other mental and behavioral disorders History of bipolar disorder Personal history of other mental and behavioral disorders History of depression Pleural effusion 04/10/2023 Recurrent UTI 04/10/2023 Sacroiliitis ([facility]/HCC) 04/10/2023 Sepsis (CMS/HCC) 04/10/2023 Shoulder pain 04/10/2023 Sleep apnea, unspecified Sleep disorder breathing SOB (shortness of breath) 04/10/2023 Urge incontinence 10/31/2020 Urinary retention 04/10/2023 Urinary tract infection in female 03/29/2023 Urinary tract infection with hematuria 03/29/2023 Wound of back 07/26/2017 [2] Past Surgical History: Procedure Laterality Date BAND HEMORRHOIDECTOMY BLADDER SURGERY N/A Bladder surgery from [facility] CARPAL TUNNEL RELEASE Bilateral CATARACT EXTRACTION Bilateral CHOLECYSTECTOMY COLON SURGERY total adominal colectomy COLONOSCOPY EMBOLECTOMY N/A Arterial Embolectomy By Femoral Incision from [employer] EXPLORATORY LAPAROTOMY W/ BOWEL RESECTION FOOT SURGERY HEMORRHOID SURGERY N/A Hemorrhoidectomy from [employer] HYSTERECTOMY N/A Hysterectomy from [facility] PERCUTANEOUS PORTAL VEIN CATHETER N/A Percutaneous Portal Vein Catheter Placement from [employer] RECTAL SURGERY MULTIPLE VAGINA SURGERY 10/17/2023 bladder mesh excision [3] Family History Problem Relation Name Age of Onset Conversions - Other Mother Drug action Alcohol abuse Mother Cardiac disorder Mother Depression Mother Uterine cancer Mother Conversions - Other Father cerebral infarction Alcohol abuse Father Cardiac disorder Father Depression Father Hypertension Father Conversions - Other Sister Drug action Alcohol abuse Sister Depression Sister Hypertension Sister Cerebral aneurysm Brother Depression Brother Hypertension Brother Cerebral aneurysm Sibling Depression Daughter Depression Son Anesthesia problems Neg Hx Malig Hyperthermia Neg Hx [4] Tobacco Use Smoking status: Former Current packs/day: 0.00 Types: Cigarettes Quit date: 2017 Years since quittin.3 Smokeless tobacco: Never Vaping Use Vaping status: Never Used Substance Use Topics Alcohol use: Not Currently Alcohol/week: 1.0 standard drink of alcohol Types: 1 Glasses of wine per week Comment: occasionally Drug use: Not Currently Types: Marijuana Comment: On occasion mostly to be able to slee. [5] Allergies Allergen Reactions Trimethoprim Hives Codeine Itching, Nausea and Rash Dexamethasone Itching and Hives Sulfa Drugs Rash and Other - please document in the comment field Nausea/Vomiting Ibuprofen Rash and Other - please document in the comment field nausea Nigel Osborn MD Resident 10/18/24 2335 Cosigned by Margarito Sue MD at 10/19/2024 9:05 AM EDT Associated attestation - Margarito Sue MD - 10/19/2024 9:05 AM EDT I saw and evaluated the patient with the resident/fellow. I discussed the case with the resident/fellow and agree with the findings and plan as documented. * ED Triage Notes - Gabe Pope RN - 10/18/2024 7:41 PM EDT Pt c/o abdominal pain and vomiting, states she thinks she has another SBO, had one in august. * Progress Notes - Parth Hardy MD - 10/18/2024 7:41 PM EDT ED TRANSFER OF CARE NOTE Transferring provider: Anurag Sumner attending: Linette MOSQUEDA Time: 223- I received sign-out and accepted care of this patient from the previous ED providers caring for this patient. I reviewed the patient's history, exam, work- up, and treatment plan up to this point. Please see the primary ED Provider Note for complete elements of the history, physical exam, and ED course. PERTINENT HISTORY: In brief, Roel Cervantes is a 68 y.o. female with relevant PMH SBO who presented to the ED for evaluation of abdominal pain. PENDING: I accepted care of this patient from the previous provider pending imaging results. Ultimately, imaging demonstrated the following findings: partial SBO ED Medication Administration from 10/18/2024 1941 to 10/18/20242232 Date/Time Order Dose Route Action 10/18/20242022 EDT morphine PF 4 mg 4 mg Intravenous Given 10/18/20242022 EDT ondansetron (Zofran) injection 4 mg 4 mg Intravenous Given 10/18/20242046 EDT ipratropium-albuterol (Duo-Neb) 0.5-2.5 mg/3 mL nebulizer solution 3 mL 3 mL Nebulization Given ED COURSE: ED Course as of 10/19/24 0611 Sun Oct 18, 2024 2334 Lipase: 20 [BR] 2337 Lactate: 1.0 Lowest concern for pancreatitis and bowel ischemia [BR] 2337 Troponin T, High Sensitivity, 0 Hour(!): 23 [BR] 2337 Troponin T, High Sensitivity, 2 Hour(!): 24 Non concerning for ACS [BR] 2337 CBC(!) No acutely actionable abnormalities and CBC or CMP [BR] 2338 CMP(!) [BR] 2338 XR Chest 1 View Right lower lung opacification favors component of known Bochdalek hernia. Additional mild left basilar scarring and atelectasis without acute focal consolidation. No pneumothorax. No significant cardiomegaly. No acute osseous abnormality. [BR] 2338 CT Abdomen Pelvis w IV Contrast CT abdomen and pelvis concerning for partial bowel obstruction [BR] 2346 General surgery consulted, pending recommendations [MM] ED Course User Index [BR] Nigel Osborn MD [MM] Parth Hardy MD Ultimately, this patient Was admitted (Admission) There were no encounter diagnoses.. Patient believed to require admission for the listed diagnoses. The EGS service was consulted for admission and was agreeable to admit to Acute Floor (Med/Surg). ED Prescriptions None - Parth Hardy MD Cosigned by Francisco Pinon MD at 10/19/2024 6:40 AM EDT Associated attestation - Francisco Pinon MD - 10/19/2024 6:40 AM EDT Seen by resident only. documented in this encounter Plan of Treatment Upcoming Encounters Date Type Department Care Team (Late st Contact Info) Description 12/03/2024 9:30 AM EDT Office Visit [facility] General Surgery [address] [place] [id number] Diogenes Al MD [address] [place] [address] documented as of this encounter Procedures Procedure Name Priority Date/Time Associated Diagnosis Comments PHOSPHORUS, PLASMA Routine 10/26/2024 11 :09 AM EDT MAGNESIUM, PLASMA Routine 10/26/2024 11: 09 AM EDT BASIC METABOLIC PANEL, PLASMA Routine 10/26/2024 11:09 AM EDT EXTRA TUBE LAVENDER TOP Routine 10/25/2024 1:08 PM EDT EXTRA TUBES Routine 10/25/2024 1:08 PM EDT POTASSIUM, PLASMA Pending Discharge 10/25/2024 1:08 PM EDT PHOSPHORUS, PLASMA Add-On 10/25/2024 1: 08 PM EDT PHOSPHORUS, PLASMA Routine 10/25/2024 11 :16 AM EDT MAGNESIUM, PLASMA Routine 10/25/2024 11: 16 AM EDT BASIC METABOLIC PANEL, PLASMA Routine 10/25/2024 11:16 AM EDT INSERT PERIPHERAL IV Routine 10/23/2024 10:25 AM EDT CBC W/O DIFFERENTIAL Routine 2024 12:12 AM EDT PHOSPHORUS, PLASMA Routine 2024 12 :12 AM EDT MAGNESIUM, PLASMA Routine 2024 12: 12 AM EDT BASIC METABOLIC PANEL, PLASMA Routine 2024 12:12 AM EDT LAPAROTOMY, EXPLORATORY, WITH LYSIS OF ADHESIONS 10/21/2024 1:22 PM EDT SBO (small bowel obstruction) (CMS/HCC) TYPE AND SCREEN Routine 10/21/2024 1:16 PM EDT INSERT PERIPHERAL IV Routine 10/21/2024 8:18 AM EDT POCT GLUCOSE METER UNSOLICITED RESULTS Routine 10/21/2024 5:58 AM EDT POCT GLUCOSE METER UNSOLICITED RESULTS Routine 10/21/2024 12:53 AM EDT POCT GLUCOSE METER UNSOLICITED RESULTS Routine 10/21/2024 12:02 AM EDT POCT GLUCOSE METER UNSOLICITED RESULTS Routine 10/20/2024 4:21 PM EDT POCT GLUCOSE METER UNSOLICITED RESULTS Routine 10/20/2024 3:38 PM EDT XR GASTROGRAFFIN CHALLENGE Routine 10/20/2024 8:53 AM EDT PHOSPHORUS, PLASMA Routine 10/20/2024 5: 01 AM EDT MAGNESIUM, PLASMA Routine 10/20/2024 5:0 1 AM EDT BASIC METABOLIC PANEL, PLASMA Routine 10/20/2024 5:01 AM EDT INSERT PERIPHERAL IV STAT 10/20/2024 3:07 AM EDT XR ABDOMEN 1 VIEW STAT 10/19/2024 2:[address] ABDOMEN PELVIS W IV CONTRAST STAT 10/18/2024 11:01 PM EDT TROPONIN T, HIGH SENSITIVITY, 2 HOUR, PLASMA Timed 10/18/2024 10:45 PM EDT ECG ADULT STAT 10/18/2024 8:34 PM EDT XR CHEST 1 VIEW STAT 10/18/2024 8:31 PM EDT TROPONIN T, HIGH SENSITIVITY, 0 HOUR, PLASMA, REFLEX TO 2 HOUR STAT 10/18/2024 8:17 PM EDT LACTATE, VENOUS STAT 10/18/2024 8:17 PM EDT CBC W/O DIFFERENTIAL STAT 10/18/2024 8:17 PM EDT LIPASE, PLASMA STAT 10/18/2024 8:17 PM EDT COMPREHENSIVE METABOLIC PANEL, PLASMA STAT 10/18/2024 8:17 PM EDT documented in this encounter Results * Phosphorus (10/26/2024 11:09 AM EDT) Phosphorus, Plasma 3.3 2.5 - 4.5 mg/dL 10/26/2024 12:02 PM EDT [facility] Blood Venous blood specimen / Unknown Venipuncture / Unknown 10/26/2024 11:09 AM EDT 10/26/2024 11:18 AM EDT us Yuki Shankar APRN LAB BLOOD ORDERABLES Final Re sult Performing Organization Address [facility] Co de Phone Number [facility] [address] [place] [address] * (ABNORMAL) Magnesium (10/26/2024 11:09 AM EDT) Pathologist [facility] Magnesium, Plasma 1.7(L) 1.9 - 2.4 mg/dL 10/26/2024 12:02 PM EDT [facility] Blood Venous blood specimen / Unknown Venipuncture / Unknown 10/26/2024 11:09 AM EDT 10/26/2024 11:18 AM EDT us Yuki Shankar APRN LAB BLOOD ORDERABLES Final Re sult Performing Organization Address [facility] Co de Phone Number [facility] [address] [place] [address] * (ABNORMAL) Basic metabolic panel (10/26/2024 11:09 AM EDT) Glucose, Plasma 113(H) 74 - 99 mg/dL 10/26/2024 12:02 PM EDT [facility] BUN, Plasma 9 8 - 23 mg/dL 10/26/2024 12:02 PM EDT [facility] Creatinine, Plasma 0.74 0.60 - 1.10 mg/dL 10/26/2024 12:02 PM EDT [facility] BUN/Creatinine Ratio 12 10/26/2024 12:02 PM EDT [facility] Sodium, Plasma 136 136 - 145 mmol/L 10/26/2024 12:02 PM EDT [facility] Potassium, Plasma 3.8 3.6 - 4.9 mmol/L 10/26/2024 12:02 PM EDT [facility] Chloride, Plasma 101 97 - 107 mmol/L 10/26/2024 12:02 PM EDT [facility] CO2, Plasma 25 22 - 29 mmol/L 10/26/2024 12:02 PM EDT [facility] Anion Gap 10 6 - 16 mmol/L 10/26/2024 12:02 PM EDT [facility] Total Calcium, Plasma 8.2(L) 8.9 - 10.2 mg/dL 10/26/2024 12:02 PM EDT [facility] eGFRcr 88.8 mL/min/1.7 3m*2 10/26/2024 12:02 PM EDT [facility] Comment:Reported eGFRcr in m L/min/1.73m2 is based the CKD-EPI 2020 equation that does not use a race coefficient. Blood Venous blood specimen / Unknown Venipuncture / Unknown 10/26/2024 11:09 AM EDT 10/26/2024 11:18 AM EDT us Yuki Shankar APRN LAB BLOOD ORDERABLES Final Re sult [facility] [address] [place] [address] * Lavender Top (10/25/2024 1:08 PM EDT) Extra Hold for add-ons 10/25/2024 4:02 PM EDT [facility] Comment:Auto resulted. Blood Venous blood specimen / Unknown 10/25/2024 1:08 PM EDT 10/25/2024 2:00 PM EDT us Farnaz Brito MD LAB BLOOD ORDERABLES Yvonne l Result [facility] [address] [place] [address] * (ABNORMAL) Phosphorus (10/25/2024 1:08 PM EDT) Phosphorus, Plasma 1.5(L) 2.5 - 4.5 mg/dL 10/25/2024 1:46 PM EDT [facility] Blood Venous blood specimen / Unknown Venipuncture / Unknown 10/25/2024 1:08 PM EDT 10/25/2024 1:19 PM EDT us Farnaz Brito MD LAB BLOOD ORDERABLES [place] [address] * Potassium (10/25/2024 1:08 PM EDT) Potassium, Plasma 4.0 3.6 - 4.9 mmol/L 10/25/2024 1:46 PM EDT [facility] Blood Venous blood specimen / Unknown Venipuncture / Unknown 10/25/2024 1:08 PM EDT 10/25/2024 1:19 PM EDT us Farnaz Brito MD LAB BLOOD ORDERABLES Yvonne l Result [address] [address] * (ABNORMAL) Phosphorus (10/25/2024 11:16 AM EDT) Phosphorus, Plasma 1.6(L) 2.5 - 4.5 mg/dL 10/25/2024 12:11 PM EDT [facility] Blood Venous blood specimen / Unknown Venipuncture / Unknown 10/25/2024 11:16 AM EDT 10/25/2024 11:23 AM EDT us Farnaz Brito MD LAB BLOOD ORDERABLES Yvonne l Result [facility] [address] [place] [address] * (ABNORMAL) Magnesium (10/25/2024 11:16 AM EDT) Magnesium, Plasma 1.7(L) 1.9 - 2.4 mg/dL 10/25/2024 12:11 PM EDT [facility] Blood Venous blood specimen / Unknown Venipuncture / Unknown 10/25/2024 11:16 AM EDT 10/25/2024 11:23 AM EDT Farnaz Brito MD LAB BLOOD ORDERABLES Yvonne l Result [facility] [address] [place] [address] * (ABNORMAL) Basic metabolic panel (10/25/2024 11:16 AM EDT) Glucose, Plasma 112(H) 74 - 99 mg/dL 10/25/2024 12:11 PM EDT [facility] BUN, Plasma 10 8 - 23 mg/dL 10/25/2024 12:11 PM EDT [facility] Creatinine, Plasma 0.68 0.60 - 1.10 mg/dL 10/25/2024 12:11 PM EDT [facility] BUN/Creatinine Ratio 15 10/25/2024 12:11 PM EDT [facility] Sodium, Plasma 136 136 - 145 mmol/L 10/25/2024 12:11 PM EDT [facility] Potassium, Plasma 4.8 3.6 - 4.9 mmol/L 10/25/2024 12:11 PM EDT [facility] Comment:Hemolyzed, result ma y be falsely increased. Chloride, Plasma 105 97 - 107 mmol/L 10/25/2024 12:11 PM EDT [facility] CO2, Plasma 21(L) 22 - 29 mmol/L 10/25/2024 12:11 PM EDT [facility] Anion Gap 10 6 - 16 mmol/L 10/25/2024 12:11 PM EDT [facility] Total Calcium, Plasma 8.3(L) 8.9 - 10.2 mg/dL 10/25/2024 12:11 PM EDT [facility] eGFRcr 95.6 mL/min/1.7 3m*2 10/25/2024 12:11 PM EDT [facility] Comment:Reported eGFRcr in m L/min/1.73m2 is based the CKD-EPI 2020 equation that does not use a race coefficient. Blood Venous blood specimen / Unknown Venipuncture / Unknown 10/25/2024 11:16 AM EDT 10/25/2024 11:23 AM EDT Farnaz Brito MD LAB BLOOD ORDERABLES Yvonne l Result [facility] [address] [place] [address] * PERIPHERAL IV (SMART[employer] LINK) (10/23/2024 10:25 AM EDT) Narrative Angely Linton, RN - 10/23/2024 10:25 AM EDT Angely Linton, RN 10/23/2024 10:25 AM Insert peripheral IV Performed by: Angely Linton, RN Authorized by: Farnaz Brito MD Hand hygiene: Hand hygiene performed prior to insertion Inserted using aseptic techniques: Yes Preparation: Skin prepped with chg Orientation: Left and upper Location: Arm Catheter placed: Peripheral IV Catheter size: 20g/1.88in Line Technique: Ultrasound Guidance Number of attempts: 2 IV flushes: Without difficulty and positive blood return noted and IV luer locked Patient tolerance: Patient tolerated the procedure well and there were no complications IV site covered with: Transparent semipermeable dressing Education provided to: Patient Farnaz Brito MD IV THERAPY ORDERABLES Fin al Result * (ABNORMAL) CBC W/O Differential (2024 12:12 AM EDT) WBC Count 7.15 3.70 - 10.30 10*3/uL LAB HEMATOLOGY METHOD 2024 12:24 AM EDT [facility] RBC Count 4.27 3.90 - 5.20 10*6/uL LAB HEMATOLOGY METHOD 2024 12:24 AM EDT [facility] HGB 11.7 11.2 - 15.7 g/dL LAB HEMATOLOGY METHOD 2024 12:24 AM EDT [facility] HCT 38.6 34.0 - 45.0 % LAB HEMATOLOGY METHOD 2024 12:24 AM EDT [facility] Platelet Count 207 155 - 369 10*3/uL LAB HEMATOLOGY METHOD 2024 12:24 AM EDT [facility] MCV 90 79 - 98 fL LAB HEMATOLOGY METHOD 2024 12:24 AM EDT [facility] MCH 27.4 26.0 - 32.0 pg LAB HEMATOLOGY METHOD 2024 12:24 AM EDT [facility] MCHC 30.3(L) 30.7 - 35.5 g/dL LAB HEMATOLOGY METHOD 2024 12:24 AM EDT [facility] RDW 15.8(H) 11.5 - 14.5 % LAB HEMATOLOGY METHOD 2024 12:24 AM EDT [facility] MPV 11.2 8.8 - 12.5 fL LAB HEMATOLOGY METHOD 2024 12:24 AM EDT [facility] nRBC 0.0 <=0.0 per 100 WBCs LAB HEMATOLOGY METHOD 2024 12:24 AM EDT [facility] Blood Venous blood specimen / Unknown Venipuncture / Unknown 2024 12:12 AM EDT 2024 12:17 AM EDT us Rebecca Cadena TEST LEAD APPLICATION TESTING LAB BLOOD ORDERABLES Yvonne l Result [facility] [address] [place] [address] * (ABNORMAL) Basic Metabolic Panel, Plasma (2024 12:12 AM EDT) Glucose, Plasma 115(H) 74 - 99 mg/dL 2024 12:48 AM EDT [facility] BUN, Plasma 10 8 - 23 mg/dL 2024 12:48 AM EDT [facility] Creatinine, Plasma 0.77 0.60 - 1.10 mg/dL 2024 12:48 AM EDT [facility] BUN/Creatinine Ratio 13 2024 12:48 AM EDT [facility] Sodium, Plasma 139 136 - 145 mmol/L 2024 12:48 AM EDT [facility] Potassium, Plasma 2.9(L) 3.6 - 4.9 mmol/L 2024 12:48 AM EDT [facility] Chloride, Plasma 102 97 - 107 mmol/L 2024 12:48 AM EDT [facility] CO2, Plasma 28 22 - 29 mmol/L 2024 12:48 AM EDT [facility] Anion Gap 9 6 - 16 mmol/L 2024 12:48 AM EDT [facility] Total Calcium, Plasma 7.9(L) 8.9 - 10.2 mg/dL 2024 12:48 AM EDT [facility] eGFRcr 84.7 mL/min/1.7 3m*2 2024 12:48 AM EDT [facility] Comment:Reported eGFRcr in m L/min/1.73m2 is based the CKD-EPI 2020 equation that does not use a race coefficient. Blood Venous blood specimen / Unknown Venipuncture / Unknown 2024 12:12 AM EDT 2024 12:17 AM EDT us Rebecca Cadena APRN LAB BLOOD ORDERABLES Yvonne l Result [facility] [address] [place] [address] * (ABNORMAL) Magnesium, Plasma (2024 12:12 AM EDT) Magnesium, Plasma 1.5(L) 1.9 - 2.4 mg/dL 2024 12:48 AM EDT [facility] Blood Venous blood specimen / Unknown Venipuncture / Unknown 2024 12:12 AM EDT 2024 12:17 AM EDT Rebecca Gabriel Surinder TEST LEAD APPLICATION TESTING LAB BLOOD ORDERABLES Yvonne l Result Performing Organization Address [facility] Co de Phone Number [facility] [address] [place] [address] * Phosphorus, Plasma (2024 12:12 AM EDT) Phosphorus, Plasma 3.3 2.5 - 4.5 mg/dL 2024 12:48 AM EDT [facility] Blood Venous blood specimen / Unknown Venipuncture / Unknown 2024 12:12 AM EDT 2024 12:17 AM EDT Rebecca Gabriel Surinder TEST LEAD APPLICATION TESTING LAB BLOOD ORDERABLES Yvonne l Result Performing Organization Address [facility] [place] [address] * Type and Screen (10/21/2024 1:16 PM EDT) ABO/Rh O Positive 10/21/2024 12:32 PM EDT [facility] Antibody Screen Negative 10/21/2024 12:32 PM EDT [facility] Specimen Expiration 10/24/2024 23:59 10/21/2024 12:32 PM EDT [facility] Blood Venous blood specimen / Unknown Venipuncture / Unknown 10/21/2024 1:16 PM EDT 10/21/2024 2:10 PM EDT Precious Alonzo MD LAB BLOOD BANK TEST ORDERABLE S Final Result Performing Organization Address [facility]/ZIP Co de Phone Number BLOOD BANK [address] [place] [address], * PERIPHERAL IV (SMARTFORM LINK) (10/21/2024 8:18 AM EDT) Narrative Rachel Byrd RN - 10/21/2024 8:18 AM EDT Rachel Byrd RN 10/21/2024 8:18 AM Insert peripheral IV Performed by: Rachel Byrd RN Authorized by: Farnaz Brito MD Hand hygiene: Hand hygiene performed prior to insertion Inserted using aseptic techniques: Yes Preparation: Skin prepped with chg Orientation: Right Location: Forearm Catheter placed: Peripheral IV Catheter size: 20g/2.00in Line Technique: Ultrasound Guidance Number of attempts: 1 IV flushes: Without difficulty and positive blood return noted and IV luer locked Patient tolerance: Patient tolerated the procedure well, there were no complications and age appropriate response IV site covered with: Transparent semipermeable dressing Education provided to: Patient Farnaz Brito MD IV THERAPY ORDERABLES Fin al Result * POCT glucose meter (10/21/2024 5:58 AM EDT) POCT Glucose 90 74 - 99 mg/dL 10/21/2024 6:00 AM EDT [facility] Comment:Accuracy of a glucos e result obtained from a capillary whole blood specimen relies upon adequate, non-compromised capillary blood flow. If the capillary glucose result is not consistent with the patient's clinical signs and symptoms, glucose testing should be repeated with either an arterial or venous sample on the glucometer or sent to the main labortory for testing. Comment 10/21/2024 6:00 AM EDT [facility] Salary Manager ID Cheng Downing 6:00 AM EDT [facility] Device ID [id number] 10/21/2024 6:00 AM EDT [facility] Specimen Type POC Capillary 10/21/2024 6:00 AM EDT [facility] Blood Capillary blood specimen / Unknown 10/21/2024 5:58 AM EDT 10/21/2024 6:00 AM EDT Farnaz Brito MD LAB POINT OF CARE TEST DOCKED DEVICE UNSOLICITED RESULTS Final Result [facility] [address] [place] [id number] * (ABNORMAL) POCT glucose meter (10/21/2024 12:53 AM EDT) POCT Glucose 116(H) 74 - 99 mg/dL 10/21/2024 12:54 AM EDT [facility] Comment:Accuracy of a glucos e result obtained from a capillary whole blood specimen relies upon adequate, non-compromised capillary blood flow. If the capillary glucose result is not consistent with the patient's clinical signs and symptoms, glucose testing should be repeated with either an arterial or venous sample on the glucometer or sent to the main labortory for testing. Comment 10/21/2024 12:54 AM EDT [facility] Salary Manager ID Audrey Pratima 10/21/2024 12:54 AM EDT [facility] Device ID [id number] 10/21/2024 12:54 AM EDT [facility] Specimen Type POC Capillary 10/21/2024 12:54 AM EDT [facility] Blood Capillary blood specimen / Unknown 10/21/2024 12:53 AM EDT 10/21/2024 12:54 AM EDT Farnaz Brito MD LAB POINT OF CARE TEST DOCKED DEVICE UNSOLICITED RESULTS Final Result Performing Organization Address City/State/[facility] Co de Phone Number [facility] [address] [place] [address] * POCT glucose meter (10/21/2024 12:02 AM EDT) [facility] POCT Glucose 82 74 - 99 mg/dL 10/21/2024 12:03 AM EDT [facility] Comment:Accuracy of a glucos e result obtained from a capillary whole blood specimen relies upon adequate, non-compromised capillary blood flow. If the capillary glucose result is not consistent with the patient's clinical signs and symptoms, glucose testing should be repeated with either an arterial or venous sample on the glucometer or sent to the main labortory for testing. Comment 10/21/2024 12:03 AM EDT [facility] Salary Manager ID Levijuan josejcPratima 10/21/2024 12:03 AM EDT [facility] Device ID [id number] 10/21/2024 12:03 AM EDT [facility] Specimen Type POC Capillary 10/21/2024 12:03 AM EDT [facility] Blood Capillary blood specimen / Unknown 10/21/2024 12:02 AM EDT 10/21/2024 12:03 AM EDT Farnaz Brito MD LAB POINT OF CARE TEST DOCKED DEVICE UNSOLICITED RESULTS Final Result Performing Organization Address City/[facility] Co de Phone Number [facility] [address] [place] [address] * (ABNORMAL) POCT glucose meter (10/20/2024 4:21 PM EDT) Pathologist [facility] POCT Glucose 151(H) 74 - 99 mg/dL 10/20/2024 4:22 PM EDT [facility] Comment:Accuracy of a glucos e result obtained from a capillary whole blood specimen relies upon adequate, non-compromised capillary blood flow. If the capillary glucose result is not consistent with the patient's clinical signs and symptoms, glucose testing should be repeated with either an arterial or venous sample on the glucometer or sent to the main labortory for testing. Comment 10/20/2024 4:22 PM EDT [facility] Salary Manager ID Alvin Veras 4:22 PM EDT [facility] Device ID [id number] 10/20/2024 4:22 PM EDT [facility] Specimen Type POC Capillary 10/20/2024 4:22 PM EDT [facility] Blood Capillary blood specimen / Unknown 10/20/2024 4:21 PM EDT 10/20/2024 4:22 PM EDT Farnaz Brito MD LAB POINT OF CARE TEST DOCKED DEVICE UNSOLICITED RESULTS Final Result Performing Organization Address City/[facility] Co de Phone Number [facility] [address] [place] [address] * (ABNORMAL) POCT glucose meter (10/20/2024 3:38 PM EDT) [facility] POCT Glucose 65(L) 74 - 99 mg/dL 10/20/2024 3:40 PM EDT [facility] Comment:Accuracy of a glucos e result obtained from a capillary whole blood specimen relies upon adequate, non-compromised capillary blood flow. If the capillary glucose result is not consistent with the patient's clinical signs and symptoms, glucose testing should be repeated with either an arterial or venous sample on the glucometer or sent to the main labortory for testing. Comment 10/20/2024 3:40 PM EDT [facility] Salary Manager ID Alvin Veras 3:40 PM EDT [facility] Device ID [id number] 10/20/2024 3:40 PM EDT [facility] Specimen Type POC Capillary 10/20/2024 3:40 PM EDT [facility] Blood Capillary blood specimen / Unknown 10/20/2024 3:38 PM EDT 10/20/2024 3:40 PM EDT us Farnaz Brito MD LAB POINT OF CARE TEST DOCKED DEVICE UNSOLICITED RESULTS Final Result Performing Organization Address City/State/[facility] Co de Phone Number [facility] [address] [place], [place] [id number] * XR Gastrograffin Challenge (10/20/2024 8:53 AM EDT) Anatomical Region Laterality Modality Body Digital Radiogra phy Impressions 10/20/2024 9:32 AM EDT Nonobstructive bowel gas pattern. CRITICAL RESULT: No. COMMUNICATION: Per this written report. By electronically signing this report, I, the attending physician, attest that I have personally reviewed the images/data for the above examination(s) and agree with the final edited report. Drafted by Moreno Rodriguez MD on 10/20/2024 9:13 AM Final report signed by López Dick MD on 10/20/2024 9:32 AM Narrative 10/20/2024 9:32 AM EDT CLINICAL INDICATION: obstruction TECHNIQUE: Supine radiograph of the abdomen. COMPARISON: Abdominal radiograph from 10/19/2024 FINDINGS: Enteric tube tip projects within the peripyloric area. Gaseous distention of loops of large bowel. No significant dilation. No contrast in the bowel loops. No evidence of intra-abdominal free air. Contrast is noted opacifying the urinary bladder. No acute osseous abnormality. Atelectatic changes in the visualized bilateral lung bases. Procedure Note López Dick MD - 10/20/2024 CLINICAL INDICATION: obstruction TECHNIQUE: Supine radiograph of the abdomen. COMPARISON: Abdominal radiograph from 10/19/2024 FINDINGS: Enteric tube tip projects within the peripyloric area. Gaseous distentionof loops of large bowel. No significant dilation. No contrast in the bowelloops. No evidence of intra-abdominal free air. Contrast is notedopacifying the urinary bladder. No acute osseous abnormality. Atelectaticchanges in the visualized bilateral lung bases. IMPRESSION: Nonobstructive bowel gas pattern. CRITICAL RESULT: No. COMMUNICATION: Per this written report. By electronically signing this report, I, the attending physician, wang I have personally reviewed the images/data for the aboveexamination(s) and agree with the final edited report. Drafted by Moreno Rodriguez MD on 10/20/2024 9:13 AM Final report signed by López Dick MD on 10/20/2024 9:32 AM Farnaz Brito MD IMG XR PROCEDURES Final R esult * Phosphorus (10/20/2024 5:01 AM EDT) Phosphorus, Plasma 3.7 2.5 - 4.5 mg/dL 10/20/2024 5:40 AM EDT [facility] Blood Venous blood specimen / Unknown Venipuncture / Unknown 10/20/2024 5:01 AM EDT 10/20/2024 5:10 AM EDT us Farnaz Brito MD LAB BLOOD ORDERABLES Yvonne l Result [facility] [address] [place] [address] * (ABNORMAL) Magnesium (10/20/2024 5:01 AM EDT) Magnesium, Plasma 1.2(L) 1.9 - 2.4 mg/dL 10/20/2024 5:40 AM EDT [facility] Blood Venous blood specimen / Unknown Venipuncture / Unknown 10/20/2024 5:01 AM EDT 10/20/2024 5:10 AM EDT us Farnaz Brito MD LAB BLOOD ORDERABLES Yvonne l Result [facility] [address] [place] [address] * (ABNORMAL) Basic metabolic panel (10/20/2024 5:01 AM EDT) Glucose, Plasma 107(H) 74 - 99 mg/dL 10/20/2024 5:40 AM EDT [facility] BUN, Plasma 13 8 - 23 mg/dL 10/20/2024 5:40 AM EDT [facility] Creatinine, Plasma 0.91 0.60 - 1.10 mg/dL 10/20/2024 5:40 AM EDT [facility] BUN/Creatinine Ratio 14 10/20/2024 5:40 AM EDT [facility] Sodium, Plasma 145 136 - 145 mmol/L 10/20/2024 5:40 AM EDT [facility] Potassium, Plasma 3.6 3.6 - 4.9 mmol/L 10/20/2024 5:40 AM EDT [facility] Chloride, Plasma 105 97 - 107 mmol/L 10/20/2024 5:40 AM EDT [facility] CO2, Plasma 31(H) 22 - 29 mmol/L 10/20/2024 5:40 AM EDT [facility] Anion Gap 9 6 - 16 mmol/L 10/20/2024 5:40 AM EDT [facility] Total Calcium, Plasma 8.8(L) 8.9 - 10.2 mg/dL 10/20/2024 5:40 AM EDT [facility] eGFRcr 69.7 mL/min/1.7 3m*2 10/20/2024 5:40 AM EDT [facility] Comment:Reported eGFRcr in m L/min/1.73m2 is based the CKD-EPI 2020 equation that does not use a race coefficient. Blood Venous blood specimen / Unknown Venipuncture / Unknown 10/20/2024 5:01 AM EDT 10/20/2024 5:10 AM EDT Farnaz Brito MD LAB BLOOD ORDERABLES Yvonne l Result [facility] [address] [place] [id number] * PERIPHERAL IV (SMARTFORM LINK) (10/20/2024 3:07 AM EDT) Narrative Nikky Carl, RN - 10/20/2024 3:07 AM EDT Nikky Carl RN 10/20/2024 3:09 AM Insert peripheral IV Performed by: Nikky Carl RN Authorized by: Little Mendoza MD Hand hygiene: Hand hygiene performed prior to insertion Inserted using aseptic techniques: Yes Preparation: Skin prepped with alcohol and skin prepped with chg Orientation: Left and upper Location: Arm Catheter placed: Peripheral IV Catheter size: 20g/1.16in Line Technique: Ultrasound Guidance Number of attempts: 3 (first two attempts to right lower arm) IV flushes: Without difficulty and positive blood return noted and IV luer locked Patient tolerance: Patient tolerated the procedure well, age appropriate response and there were no complications Patient comfort measures used: Distraction and position of comfort IV site covered with: Transparent semipermeable dressing Education provided to: Patient Comments: Education provided to patient at bedside regarding PIV care, s/s of infection and phlebitis. Patient verbalized understanding. 3CG and/or vein images sent to PACS. Alcohol swab cap(s) applied. us Little Mendoza MD IV THERAPY ORDERABLES Final Resu lt * XR Abdomen 1 View (10/19/2024 2:27 AM EDT) Anatomical Region Laterality Modality Body Digital Radiogra phy Impressions 10/19/2024 2:34 AM EDT Limited field of view abdominal radiograph for the purposes of support hardware localization demonstrates: * Tip of an enteric tube, and associated side-port, terminate in the stomach. * Contrast opacifies the right collecting system and ureter, with a rate is 133 demonstrating severe hydroureteronephrosis. * Gaseous dilation of small bowel. * No acute osseous abnormality. * No abnormal abdominal calcifications. * Visualized lung kline are clear. CRITICAL RESULT: No. COMMUNICATION: Per this written report. An [employer] secured message was sent to the responding clinician, Aung Pope MD, on 10/19/2024 2:34 AM. Drafted by Vinay Church MD on 10/19/2024 2:28 AM Final report signed by Vinay Church MD on 10/19/2024 2:34 AM Narrative 10/19/2024 2:34 AM EDT CLINICAL INDICATION: NGT placement TECHNIQUE: Supine radiograph of the abdomen. COMPARISON: Abdominal radiograph 09/30/2024 FINDINGS: See impression. Procedure Note Vinay Church MD - 10/19/2024 CLINICAL INDICATION: NGT placement TECHNIQUE: Supine radiograph of the abdomen. COMPARISON: Abdominal radiograph 09/30/2024 FINDINGS: See impression. IMPRESSION: Limited field of view abdominal radiograph for the purposes of supporthardware localization demonstrates: *Tip of an enteric tube, and associated side-port, terminate in thestomach. *Contrast opacifies the right collecting system and ureter, with a rateis 133 demonstrating severe hydroureteronephrosis. *Gaseous dilation of small bowel. *No acute osseous abnormality. *No abnormal abdominal calcifications. *Visualized lung kline are clear. CRITICAL RESULT: No. COMMUNICATION: Per this written report. An [employer] secured message was sent to the responding clinician, Aung Garcia MD, on 10/19/2024 2:34 AM. Drafted by Vinay Church MD on 10/19/2024 2:28 AM Final report signed by Vinay Church MD on 10/19/2024 2:34 AM Little Mendoza MD IMG XR PROCEDURES Final Result * CT Abdomen Pelvis w IV Contrast (10/18/2024 11:01 PM EDT) Anatomical Region Laterality Modality Abdomen, Pelvis Computed Tomogra phy Impressions 10/18/2024 11:40 PM EDT 1. Similar to prior there are multiple loops of dilated small bowel with similar transition point in the left lower abdomen favored to represent at least partial obstruction. CRITICAL RESULT: No COMMUNICATION: These findings were discussed via secure chat with MISHEL MARINELLI on 10/18/2024 11:21 PM by Salinas Ricci with acknowledgment of the results . Preliminary report signed by Salinas Ricci DO on 10/18/2024 11:23 PM By electronically signing this report, I, the attending physician, attest that I have personally reviewed the images/data for the above examination(s) and agree with the final edited report. Drafted by Salinas Ricci DO on 10/18/2024 11:13 PM Final report signed by Dominguez Marroquin MD on 10/18/2024 11:40 PM Narrative 10/18/2024 11:40 PM EDT CLINICAL INDICATION: Abdominal pain, acute, nonlocalized TECHNIQUE: Imaging of the abdomen and pelvis was performed, from lung bases through pubic symphysis, using spiral technique, following administration of IV contrast, Omnipaque 300, 100 mL. Delayed (excretory phase) images were performed through the kidneys. Reformatted images in the coronal and sagittal planes were generated from the axial data set to facilitate diagnostic accuracy. Total DLP (Dose-Length Product): 535.47 mGy.cm. Please note: The reported value represents the total of one or more individual components during the CT acquisition on this date and at this time, and as such, the same value may appear in more than one CT report depending on the interpreting/reporting physicians. COMPARISON: September 29, 2024 FINDINGS: Lung Bases: The lung bases are clear. Liver/Gallbladder/Biliary system: The liver demonstrates homogeneous enhancement. Cholecystectomy. Similar moderate intra and extrahepatic biliary ductal dilation. Spleen: The spleen enhances homogeneously. Pancreas: The pancreas enhances homogeneously. Adrenals: The adrenals are morphologically unremarkable. Kidneys: The kidneys demonstrate symmetric nephrogram and excretion. No renal or ureteral calculi. No hydronephrosis. Bowel/Mesentery: Similar prior there is diffusely dilated small bowel in the left upper abdomen with similar transition point in the left lower abdomen. Fecalization of small bowel predominantly within the dilated small bowel left upper abdomen. Colectomy with right lower quadrant ileostomy. The appendix is visualized and normal. No pneumoperitoneum. Rectal stump is unremarkable. Vessels/Lymph Nodes: Abdominal aorta and major branches are patent. Moderate atherosclerotic calcifications of the abdominal aorta. No lymphadenopathy within the abdomen or pelvis. Fluid Survey: No free fluid in the abdomen. No free fluid in the pelvis. Pelvis: The pelvic viscera are unremarkable. Body Wall: Normal. Bones: No acute fracture. Unchanged chronic compression deformity at T12. Procedure Note Dominguez Marroquin MD - 10/18/2024 CLINICAL INDICATION: Abdominal pain, acute, nonlocalized TECHNIQUE: Imaging of the abdomen and pelvis was performed, from lung bases throughpubic symphysis, using spiral technique, following administration of IVcontrast, Omnipaque 300, 100 mL. Delayed (excretory phase) images wereperformed through the kidneys. Reformatted images in the coronal andsagittal planes were generated from the axial data set to facilitatediagnostic accuracy. Total DLP (Dose-Length Product): 535.47 mGy.cm. Please note: The reportedvalue represents the total of one or more individual components during theCT acquisition on this date and at this time, and as such, the same valuemay appear in more than one CT report depending on theinterpreting/reporting physicians. COMPARISON: September 29, 2024 FINDINGS: Lung Bases: The lung bases are clear. Liver/Gallbladder/Biliary system: The liver demonstrates homogeneousenhancement. Cholecystectomy. Similar moderate intra and extrahepaticbiliary ductal dilation. Spleen: The spleen enhances homogeneously. Pancreas: The pancreas enhances homogeneously. Adrenals: The adrenals are morphologically unremarkable. Kidneys: The kidneys demonstrate symmetric nephrogram and excretion. Norenal or ureteral calculi. No hydronephrosis. Bowel/Mesentery: Similar prior there is diffusely dilated small bowel inthe left upper abdomen with similar transition point in the left lowerabdomen. Fecalization of small bowel predominantly within the dilatedsmall bowel left upper abdomen. Colectomy with right lower quadrantileostomy. The appendix is visualized and normal. No pneumoperitoneum.Rectal stump is unremarkable. Vessels/Lymph Nodes: Abdominal aorta and major branches are patent.Moderate atherosclerotic calcifications of the abdominal aorta. Nolymphadenopathy within the abdomen or pelvis. Fluid Survey: No free fluid in the abdomen. No free fluid in the pelvis. Pelvis: The pelvic viscera are unremarkable. Body Wall: Normal. Bones: No acute fracture. Unchanged chronic compression deformity atT12. IMPRESSION: 1. Similar to prior there are multiple loops of dilated small bowel withsimilar transition point in the left lower abdomen favored to represent atleast partial obstruction. CRITICAL RESULT: No COMMUNICATION: These findings were discussed via secure chat with MISHEL MARINELLI 10/18/2024 11:21 PM by Salinas Ricci with acknowledgment of the results . Preliminary report signed by Salinas Ricci DO on 10/18/2024 11:23 PM By electronically signing this report, I, the attending physician, attestthat I have personally reviewed the images/data for the aboveexamination(s) and agree with the final edited report. Drafted by Salinas Ricci DO on 10/18/2024 11:13 PM Final report signed by Dominguez Marroquin MD on 10/18/2024 11:40 PM us Mishelbrunilda Marinelli DO IMG CT PROCEDURES Final Resul t * (ABNORMAL) Troponin T, High Sensitivity, 2 Hour, Plasma (10/18/2024 10:45 PM EDT) Troponin T, High Sensitivity, 2 Hour 24(H) <14 ng/L 10/18/2024 11:10 PM EDT [facility] Troponin Delta 1 <10 ng/L 10/18/2024 11:10 PM EDT [facility] Troponin Delta Interpretation Not Significant 10/18/2024 11:10 PM EDT [facility] Comment:Not Significant. No acute change in troponin observed between the baseline and 2 hour samples. Blood Venous blood specimen / Unknown Venipuncture / Unknown 10/18/2024 10:45 PM EDT 10/18/2024 10:46 PM EDT us Mishelbrunilda Marinelli DO LAB BLOOD ORDERABLES Final Re sult [facility] [address] [place] [address] * EKG now - STAT (adult) (10/18/2024 8:34 PM EDT) EKG DIAGNOSIS CLASS Abnormal MUSE ECG Ventricular Rate 93 BPM MUSE ECG Atrial Rate 93 BPM MUSE ECG MN Interval 150 ms MUSE ECG QRSD Interval 70 ms MUSE ECG QT Interval 352 ms MUSE ECG QTC Interval 437 ms MUSE ECG P [place] 82 degrees MUSE ECG R [place] 12 degrees MUSE ECG T Wave [place] 60 degrees MUSE ECG Diagnosis Normal sinus rhythm MUSE ECG Diagnosis Low voltage QRS MUSE ECG Diagnosis Cannot rule out Anterior infarct , age undetermined MUSE ECG Diagnosis Abnormal ECG MUSE ECG Diagnosis MUSE ECG Diagnosis Confirmed by Grzegorz Butcher ([id number]) on 10/19/2024 12:57:13 PM MUSE ECG 10/18/2024 8:34 PM EDT 10/19/2024 12:57 PM EDT us Mishel Marinelli DO ECG ORDERABLES Final Result MUSE ECG * XR Chest 1 View (10/18/2024 8:31 PM EDT) Anatomical Region Laterality Modality Chest Digital Radiogra phy Impressions 10/18/2024 9:07 PM EDT Right lower lung opacification favors component of known [place]chdale[place] hernia. Additional mild left basilar scarring and atelectasis without acute focal consolidation. No pneumothorax. No significant cardiomegaly. No acute osseous abnormality. CRITICAL RESULT: No. COMMUNICATION: Per this written report. Drafted by Giorgio Cook MD on 10/18/2024 9:03 PM Final report signed by Giorgio Cook MD on 10/18/2024 9:07 PM Narrative 10/18/2024 9:07 PM EDT CLINICAL INDICATION: abd pain TECHNIQUE: XR CHEST 1 VIEW COMPARISON: Abdominal radiograph 09/29/2024. CT abdomen pelvis 09/29/2024. Chest radiograph 07/09/2023. FINDINGS: Right lower lung opacification favors component of known [place] hernia. Additional mild left basilar scarring and atelectasis without acute focal consolidation. No pneumothorax. No significant cardiomegaly. No acute osseous abnormality. Procedure Note Giorgio Cook MD - 10/18/2024 CLINICAL INDICATION: abd pain TECHNIQUE: XR CHEST 1 VIEW COMPARISON: Abdominal radiograph 09/29/2024. CT abdomen pelvis 09/29/2024. Chestradiograph 07/09/2023. FINDINGS: Right lower lung opacification favors component of known [place]dalek hernia.Additional mild left basilar scarring and atelectasis without acute focalconsolidation. No pneumothorax. No significant cardiomegaly. No acuteosseous abnormality. IMPRESSION: Right lower lung opacification favors component of known [place]dale[place] hernia.Additional mild left basilar scarring and atelectasis without acute focalconsolidation. No pneumothorax. No significant cardiomegaly. No acuteosseous abnormality. CRITICAL RESULT: No. COMMUNICATION: Per this written report. Drafted by Giorgio Cook MD on 10/18/2024 9:03 PM Final report signed by Giorgio Cook MD on 10/18/2024 9:07 PM Agentrun DO IMG XR PROCEDURES Final Resul t * (ABNORMAL) Troponin now and 120 min (10/18/2024 8:17 PM EDT) Troponin T, High Sensitivity, 0 Hour 23(H) <14 ng/L 10/18/2024 8:51 PM EDT [facility] Blood Venous blood specimen / Unknown Venipuncture / Unknown 10/18/2024 8:17 PM EDT 10/18/2024 8:22 PM EDT [facility] LAB BLOOD ORDERABLES Final Re sult Performing Organization Address City/[facility]/ZIP Co de Phone Number [facility] [address] [place] [address] * Lactic acid, venous (10/18/2024 8:17 PM EDT) [facility] Lactate, Venous, Whole Blood 1.0 0.5 - 2.2 mmol/L LAB HEMATOLOGY METHOD 10/18/2024 8:29 PM EDT [facility] Blood Venous blood specimen / Unknown Venipuncture / Unknown 10/18/2024 8:17 PM EDT 10/18/2024 8:26 PM EDT [facility] LAB BLOOD ORDERABLES Final Re sult [facility] [address] [place] [address] * Lipase (10/18/2024 8:17 PM EDT) Lipase, Plasma 20 19 - 63 U/L 10/18/2024 8:51 PM EDT [facility] Blood Venous blood specimen / Unknown Venipuncture / Unknown 10/18/2024 8:17 PM EDT 10/18/2024 8:22 PM EDT Mishelbrunilda Marinelli DO LAB BLOOD ORDERABLES Final Re sult [facility] [address] [place] [address] * (ABNORMAL) CBC (10/18/2024 8:17 PM EDT) WBC Count 8.05 3.70 - 10.30 10*3/uL LAB HEMATOLOGY METHOD 10/18/2024 8:29 PM EDT [facility] RBC Count 4.49 3.90 - 5.20 10*6/uL LAB HEMATOLOGY METHOD 10/18/2024 8:29 PM EDT [facility] HGB 12.6 11.2 - 15.7 g/dL LAB HEMATOLOGY METHOD 10/18/2024 8:29 PM EDT [facility] HCT 39.4 34.0 - 45.0 % LAB HEMATOLOGY METHOD 10/18/2024 8:29 PM EDT [facility] Platelet Count 216 155 - 369 10*3/uL LAB HEMATOLOGY METHOD 10/18/2024 8:29 PM EDT [facility] MCV 88 79 - 98 fL LAB HEMATOLOGY METHOD 10/18/2024 8:29 PM EDT [facility] MCH 28.1 26.0 - 32.0 pg LAB HEMATOLOGY METHOD 10/18/2024 8:29 PM EDT [facility] MCHC 32.0 30.7 - 35.5 g/dL LAB HEMATOLOGY METHOD 10/18/2024 8:29 PM EDT [facility] RDW 16.4(H) 11.5 - 14.5 % LAB HEMATOLOGY METHOD 10/18/2024 8:29 PM EDT [facility] MPV 11.0 8.8 - 12.5 fL LAB HEMATOLOGY METHOD 10/18/2024 8:29 PM EDT [facility] nRBC 0.0 <=0.0 per 100 WBCs LAB HEMATOLOGY METHOD 10/18/2024 8:29 PM EDT [facility] Blood Venous blood specimen / Unknown Venipuncture / Unknown 10/18/2024 8:17 PM EDT 10/18/2024 8:22 PM EDT Mishel Lisy Marinelli DO LAB BLOOD ORDERABLES Final Re sult [facility] [address] [place] [address] * (ABNORMAL) CMP (10/18/2024 8:17 PM EDT) Glucose, Plasma 112(H) 74 - 99 mg/dL 10/18/2024 8:51 PM EDT [facility] BUN, Plasma 9 8 - 23 mg/dL 10/18/2024 8:51 PM EDT [facility] Creatinine, Plasma 0.88 0.60 - 1.10 mg/dL 10/18/2024 8:51 PM EDT [facility] BUN/Creatinine Ratio 10 10/18/2024 8:51 PM EDT [facility] Sodium, Plasma 141 136 - 145 mmol/L 10/18/2024 8:51 PM EDT [facility] Potassium, Plasma 4.1 3.6 - 4.9 mmol/L 10/18/2024 8:51 PM EDT [facility] Chloride, Plasma 104 97 - 107 mmol/L 10/18/2024 8:51 PM EDT [facility] CO2, Plasma 21(L) 22 - 29 mmol/L 10/18/2024 8:51 PM EDT [facility] Anion Gap 16 6 - 16 mmol/L 10/18/2024 8:51 PM EDT [facility] Total Calcium, Plasma 9.3 8.9 - 10.2 mg/dL 10/18/2024 8:51 PM EDT [facility] Total Protein 7.4 6.3 - 7.9 g/dL 10/18/2024 8:51 PM EDT [facility] Albumin, Plasma 3.4(L) 3.5 - 5.2 g/dL 10/18/2024 8:51 PM EDT [facility] AST, Plasma 22 10 - 35 U/L 10/18/2024 8:51 PM EDT [facility] Comment:Hemolyzed, result ma y be falsely increased. ALT, Plasma 11 10 - 35 U/L 10/18/2024 8:51 PM EDT [facility] Alkaline Phosphatase, Plasma 82 46 - 142 U/L 10/18/2024 8:51 PM EDT [facility] Total Bilirubin, Plasma 0.3 0.2 - 1.1 mg/dL 10/18/2024 8:51 PM EDT [facility] eGFRcr 72.6 mL/min/1.7 3m*2 10/18/2024 8:51 PM EDT [facility] Comment:Reported eGFRcr in m L/min/1.73m2 is based the CKD-EPI 2020 equation that does not use a race coefficient. Blood Venous blood specimen / Unknown Venipuncture / Unknown 10/18/2024 8:17 PM EDT 10/18/2024 8:22 PM EDT us Mishel Marinelli DO LAB BLOOD ORDERABLES Final Re sult [facility] [address] [place] [address] documented in this encounter Visit Diagnoses Diagnosis SBO (small bowel obstruction) (CMS/HCC)- Primary Unspecified intestinal obstruction SBO (small bowel obstruction) (CMS/HCC) Unspecified intestinal obstruction Hypothyroidism Unspecified hypothyroidism Hyperlipidemia Other and unspecified hyperlipidemia HTN (hypertension) Unspecified essential hypertension GERD (gastroesophageal reflux disease) Esophageal reflux Emphysema/COPD (CMS/HCC) Other emphysema Electrolyte imbalance Electrolyte and fluid disorders not elsewhere classified Mood disorder (CMS/HCC) Unspecified episodic mood disorder COPD (chronic obstructive pulmonary disease) (CMS/HCC) Chronic airway obstruction, not elsewhere classified Ileostomy present (CMS/HCC) documented in this encounter Administered Medications Inactive Administered Medications - up to 3 most recent administrations Medication Order MAR Action Action Date Dose Rate Site acetaminophen (Tylenol) tablet 650 mg 650 mg, Nasogastric, Every 6 hours, First dose on Sat10/19/24 at 0640, Until Discontinued, Routine Given 10/26/2024 11:58 AM EDT 650 mg Given 10/26/2024 6:18 AM EDT 650 mg Given 10/25/2024 11:43 PM EDT 650 mg amLODIPine (Norvasc) tablet 5 mg 5 mg, Oral, Daily, First dose on Sat10/25/24 at 1515, Until Discontinued, Routine Given 10/26/2024 8:33 AM EDT 5 mg Given 10/25/2024 4:28 PM EDT 5 mg buPROPion (Wellbutrin) tablet 150 mg 150 mg, Nasogastric, 2 times daily, First dose (after last modification) on Sat10/19/24 at 0900, Until Discontinued, Routine Given 10/26/2024 8:33 AM EDT 150 mg Given 10/25/2024 8:21 PM EDT 150 mg Given 10/25/2024 9:38 AM EDT 150 mg calcium carbonate (Tums) chewable tablet 500 mg 500 mg, Oral, 4 times daily PRN, Starting on Sat10/23/24 at 0511, Until Sat10/26/24 at 1519, Routine, indigestion, heartburn carvedilol (Coreg) tablet 3.125 mg 3.125 mg, Nasogastric, 2 times daily, First dose on Sat10/19/24 at 0900, Until Discontinued, Routine Given 10/26/2024 8:33 AM EDT 3.125 mg Given 10/25/2024 8:21 PM EDT 3.125 mg Given 10/25/2024 9:39 AM EDT 3.125 mg dextrose 5 % and lactated Ringer's infusion 50 mL/hr, Intravenous, Continuous, Starting on Sat10/19/24 at 0110, Until Sat10/24/24 at 0540, Routine New Bag 2024 1:07 PM EDT 100 mL/hr 100 mL/ hr New Bag 10/21/2024 4:57 PM EDT 100 mL/hr 100 mL/hr New Bag 10/20/2024 10:18 PM EDT 100 mL/hr 100 mL/hr dextrose 50 % solution - Pyxis Override Pull 1 dose, Starting on Sat10/20/24 at 1545, Until Sat10/20/24 at 1551 Given 10/20/2024 3:51 PM EDT 50 mL dextrose 50 % solution - Pyxis Override Pull 1 dose, Starting on Sat10/21/24 at 0019, Until Sat10/21/24 at 0025 Given 10/21/2024 12:25 AM EDT 205 mL dextrose 50 % solution 12.5 g 12.5 g, Intravenous, Every 15 min PRN, Starting on Sat10/21/24 at 0033, Until Sat10/26/24 at 1519, Routine, low blood sugar enoxaparin (Lovenox) syringe 40 mg 40 mg, Subcutaneous, Daily, First dose on Sat10/19/24 at 0900, Until Discontinued, Routine Given 10/26/2024 8:33 AM EDT 40 mg Left Lower Abdomen Given 10/25/2024 9:39 AM EDT 40 mg Ri ght Lower Abdomen Given 10/24/2024 8:18 AM EDT 40 mg Le ft Upper Arm (Back) gabapentin (Neurontin) 250 MG/5ML solution 125 mg 125 mg, Nasogastric, 2 times daily, First dose on Sat10/19/24 at 0900, Until Discontinued, Routine Given 2024 9:47 AM EDT 125 mg Given 10/21/2024 9:42 PM EDT 125 mg Given 10/21/2024 9:40 AM EDT 125 mg gabapentin (Neurontin) capsule 100 mg 100 mg, Nasogastric, 2 times daily, First dose on Sat10/22/24 at 2100, Until Discontinued, Routine Given 10/26/2024 8:33 AM EDT 100 mg Given 10/25/2024 8:22 PM EDT 100 mg Given 10/25/2024 9:39 AM EDT 100 mg glucagon (human recombinant) injection 1 mg 1 mg, Intramuscular, Every 15 min PRN, Starting on Sat10/21/24 at 0033, Until Sat10/26/24 at 1519, Routine, low blood sugar per Hypoglycemia Prevention and Treatment protocol HYDROmorphone (Dilaudid) injection 0.5 mg 0.5 mg, Intravenous, Every 2 hour PRN, Starting on Sat10/19/24 at 0105, Until 10/24/24 at 0632, Routine, mild - moderate pain Given 10/24/2024 4:4 9 AM EDT 0.5 mg Given 10/24/2024 1:01 AM EDT 0.5 mg Given 10/23/2024 10:45 PM EDT 0.5 mg HYDROmorphone (Dilaudid) injection 0.5 mg 0.5 mg, Intravenous, Every 10 min PRN, 2 doses, Starting on Sat10/21/24 at 1554, Until Sat10/21/24 at 1721, Routine, Recovery (Phase I only), pain score of 9-10 out of 10 Given 10/21/2024 5:21 PM EDT 0.5 mg Given 10/21/2024 4:53 PM EDT 0.5 mg iohexol (OMNIPaque) 300 MG/ML injection 100 mL 100 mL, Intravenous, Once in imaging, 1 dose, Starting on Sat10/18/24 at 2253, Until Sat10/18/24 at 2255, Routine, Imaging Protocol Orders Given 10/18/2024 10:55 PM EDT 100 mL ipratropium-albuterol (Duo-Neb) 0.5-2.5 mg/3 mL nebulizer solution 3 mL 3 mL, Nebulization, Once, 1 dose, On Sat10/18/24 at 2000, STAT Given 10/18/2024 8:47 PM EDT 3 mL lactated Ringer's bolus 500 mL 500 mL, Intravenous, Once, 1 dose, On Sat10/21/24 at 2315, Administer over 2 Hours, Routine New Bag 10/21/2024 10:23 PM EDT 500 mL 250 mL/h r lactated Ringer's bolus 500 mL 500 mL, Intravenous, Once, 1 dose, On Cherri 10/22/24 at 1830, Administer over 2 Hours, Routine New Bag 2024 5:45 PM EDT 500 mL 250 mL/hr lactated Ringer's infusion 500 mL 500 mL, Intravenous, Once, 1 dose, On Topmost 10/18/24 at 2345, STAT New Bag 10/18/2024 11:49 PM EDT 500 mL loperamide (Imodium A-D) tablet 2 mg 2 mg, Oral, 4 times daily PRN, Starting on Sat10/26/24 at 0837, Until Sat10/26/24 at 1519, Routine, diarrhea magnesium oxide (Mag-Ox) tablet 400 mg 400 mg, Oral, Daily, 3 doses, First dose on Sat10/26/24 at 1100, Last dose on Sat10/28/24 at 0900, Routine Given 10/26/2024 11:22 AM EDT 400 mg magnesium sulfate IVPB 2 g 2 g, Intravenous, Once, 1 dose, On 10/24/24 at 1130, at 25 mL/hr, Administer over 2 Hours, Routine New Bag 10/24/2024 12:17 PM EDT 2 g 25 mL/hr magnesium sulfate IVPB 2 g 2 g, Intravenous, Once, 1 dose, On 10/25/24 at 1315, Routine New Bag 10/25/2024 1:45 PM EDT 2 g 25 mL/hr magnesium sulfate IVPB 4 g 4 g, Intravenous, Once, 1 dose, On 10/20/24 at 0555, Routine New Bag 10/20/2024 6:04 AM EDT 4 g 25 mL/hr magnesium sulfate IVPB 4 g 4 g, Intravenous, Once, 1 dose, On Cherri 10/22/24 at 0145, Routine, Recovery(Phase II-Outpatient)/On Unit(Inpatient) New Bag 2024 1:11 AM EDT 4 g 25 mL/hr methocarbamol (Robaxin) tablet 500 mg 500 mg, Nasogastric, 4 times daily, First dose on Sat10/19/24 at 0900, Until Discontinued, Routine Given 10/24/2024 8:18 AM EDT 500 mg Given 10/23/2024 8:21 PM EDT 500 mg Given 10/23/2024 5:28 PM EDT 500 mg methocarbamol (Robaxin) tablet 750 mg 750 mg, Nasogastric, 4 times daily, First dose (after last modification) on 10/24/24 at 1400, Until Discontinued, Routine Given 10/26/2024 8:33 AM EDT 750 mg Given 10/25/2024 10:25 PM EDT 750 mg Given 10/25/2024 5:51 PM EDT 750 mg mometasone-formoterol (Dulera 200) 200-5 MCG/ACT inhaler 2 puff 2 puff, Inhalation, 2 times daily, First dose on Sat10/19/24 at 0900, Until Discontinued, Routine Given 10/26/2024 8:33 AM EDT 2 puffs Given 10/25/2024 8:22 PM EDT 2 puffs Given 10/25/2024 9:39 AM EDT 2 puffs morphine PF 4 mg 4 mg, Intravenous, Once, 1 dose, On Sat10/18/24 at 2000, STAT Given 10/18/2024 8:23 PM EDT 4 mg morphine PF 4 mg 4 mg, Intravenous, Once, 1 dose, On Sat10/18/24 at 2230, STAT Given 10/18/2024 10:45 PM EDT 4 mg ondansetron (Zofran) injection 4 mg 4 mg, Intravenous, Once, 1 dose, On Sat10/18/24 at 2000, STAT Given 10/18/2024 8:23 PM EDT 4 mg ondansetron (Zofran) injection 4 mg 4 mg, Intravenous, Every 6 hours PRN, 3 doses, Starting on Sat10/19/24 at 0020, Until Sat10/19/24 at 0112, STAT, nausea, vomiting Given 10/19/2024 12:23 AM EDT 4 m g ondansetron (Zofran) injection 4 mg 4 mg, Intravenous, Every 6 hours PRN, Starting on Sat10/19/24 at 0105, Until Sat10/26/24 at 1519, Routine, vomiting, nausea Given 10/24/2024 4:04 PM EDT 4 mg Given 10/20/2024 3:11 AM EDT 4 mg Given 10/19/2024 8:04 AM EDT 4 mg ondansetron ODT (Zofran-ODT) disintegrating tablet 4 mg 4 mg, Oral, Every 6 hours PRN, Starting on Sat10/19/24 at 0105, Until Sat10/26/24 at 1519, Routine, nausea, vomiting Given 10/25/2024 1:45 PM EDT 4 mg oxyCODONE (Roxicodone) immediate release tablet 10 mg 10 mg, Oral, Once as needed, 2 doses, Starting on Sat10/21/24 at 1554, Until Sat10/21/24 at 1816, Routine, Recovery (Phase I only), pain score of 6-8 out of 10 Given 10/21/2024 4:51 PM EDT 10 mg oxyCODONE (Roxicodone) immediate release tablet 10 mg 10 mg, Oral, Every 6 hours PRN, Starting on Sat10/24/24 at 0632, Until Sat10/26/24 at 1519, Routine, severe pain Given 10/26/2024 10:36 AM EDT 10 mg Given 10/26/2024 4:25 AM EDT 10 mg Given 10/25/2024 10:25 PM EDT 10 mg oxyCODONE (Roxicodone) immediate release tablet 5 mg 5 mg, Oral, Every 6 hours PRN, Starting on Sat10/24/24 at 0632, Until Sat10/26/24 at 1519, Routine, moderate pain oxyCODONE (Roxicodone) immediate release tablet 5 mg 5 mg, Oral, Once, 1 dose, On Sat10/25/24 at 0015, Routine Given 10/24/2024 11:52 PM EDT 5 mg pantoprazole (Protonix) EC tablet 40 mg 40 mg, Oral, Daily, First dose on Sat10/25/24 at 0900, Until Discontinued, Routine Given 10/26/2024 8:33 AM EDT 40 mg Given 10/25/2024 9:39 AM EDT 40 mg pantoprazole (Protonix) injection 40 mg 40 mg, Intravenous, Daily, First dose on Sat10/19/24 at 0900, Until Discontinued, Routine Given 10/24/2024 8:18 AM EDT 40 mg Given 10/23/2024 8:26 AM EDT 40 mg Given 2024 8:08 AM EDT 40 mg phosphorus (K Phos Neutral) tablet 1 tablet 1 tablet (250 mg), Oral, 2 times daily, 6 doses, First dose on Sat10/26/24 at 1100, Last dose on Sat10/28/24 at 2100, Routine Given 10/26/2024 11:22 AM EDT 1 tablet potassium chloride (Klor-Con) packet 20 mEq 20 mEq, Oral, Once, 1 dose, On 10/24/24 at 1315, Routine Given 10/24/2024 1:26 PM EDT 20 mEq potassium chloride (Klor-Con) packet 40 mEq 40 mEq, Oral, Every 4 hours, 2 doses, First dose (after last modification) on 10/24/24 at 1315, Last dose on Sat10/24/24 at 1715, Routine Given 10/24/2024 5:12 PM EDT 40 mEq Given 10/24/2024 1:26 PM EDT 40 mEq potassium chloride IVPB 10 mEq 10 mEq, Intravenous, Every 1 hour, 8 doses, First dose on Cherri 10/22/24 at 0145, Last dose on Sat10/22/24 at 0845, Routine, Recovery(Phase II-Outpatient)/On Unit(Inpatient)Indications:Hypokal emia New Bag 2024 11:54 AM EDT 10 mEq 100 mL/hr New Bag 2024 9:04 AM EDT 10 mEq 100 mL/hr New Bag 2024 7:38 AM EDT 10 mEq 100 mL/hr Povidone-Iodine 5 % swab solution 1 Application Nasal, Once, 1 dose, On Sat10/21/24 at 1330, Routine Given 10/21/2024 1:17 PM EDT 1 Application prochlorperazine (Compazine) injection 10 mg 10 mg, Intravenous, Once, 1 dose, On Sat10/19/24 at 0110, STAT Given 10/19/2024 1:13 AM EDT 10 mg prochlorperazine (Compazine) injection 2.5 mg 2.5 mg, Intravenous, Every 6 hours PRN, Starting on 10/24/24 at 1846, Until Sat10/26/24 at 1519, Routine, nausea, vomiting Given 10/24/2024 8:13 PM EDT 2.5 mg rOPINIRole (Requip) tablet 0.5 mg 0.5 mg, Oral, Nightly, First dose on Sat10/20/24 at 2100, Until Discontinued, Routine Given 10/21/2024 8:47 PM EDT 0.5 mg Given 10/20/2024 8:46 PM EDT 0.5 mg rOPINIRole (Requip) tablet 0.5 mg 0.5 mg, Nasogastric, Nightly, First dose (after last modification) on Cherri 10/22/24 at 2100, Until Discontinued, Routine Given 10/25/2024 8:22 PM EDT 0.5 mg Given 10/24/2024 8:12 PM EDT 0.5 mg Given 10/23/2024 8:21 PM EDT 0.5 mg rosuvastatin (Crestor) tablet 20 mg 20 mg, Oral, Nightly, First dose on Sat10/26/24 at 2100, Until Discontinued, Routine sodium chloride 0.9 % flush 10 mL 10 mL, Intravenous, Every 12 hours, First dose on Sat10/19/24 at 0110, Until Discontinued, Routine Given 10/19/2024 1:17 AM EDT 10 mL sodium chloride 0.9 % flush 10 mL 10 mL, Intravenous, Every 12 hours, First dose on Sat10/21/24 at 1330, Until Discontinued, Routine, Holding - Preprocedure Given 2024 1:07 PM EDT 10 mL Given 2024 8:36 AM EDT 10 mL Given 2024 1:27 AM EDT 10 mL sodium phosphates 30 mmol in sodium chloride 0.9 % 500 mL IVPB 30 mmol, Intravenous, Once, 1 dose, On Sat10/25/24 at 1315, Routine New Bag 10/25/2024 2:01 PM EDT 30 mmol 138.8 mL/hr Tiotropium [place] Monohydrate (Spiriva Respimat) 2.5 MCG/ACT inhaler 2 puff 2 puff, Inhalation, Daily, First dose on Sat10/19/24 at 0900, Until Discontinued, Routine Given 10/26/2024 8:33 AM EDT 2 puffs Given 2024 8:36 AM EDT 2 puffs Given 10/19/2024 9:33 AM EDT 2 puffs traZODone (Desyrel) tablet 50 mg 50 mg, Oral, Nightly, First dose on Sat10/25/24 at 2230, Until Discontinued, Routine Given 10/25/2024 10:24 PM EDT 50 mg documented in this encounter Active and Recently Administered Medications Times are shown in EDT. Scheduled Medication Order 10/24/2024 10/25/2024 10/26/2024 acetaminophen (Tylenol) tablet 650 mg 650 mg, Nasogastric, Every 6 hours, First dose on Sat10/19/24 at 0640, Until Discontinued, Routine 0101 (Given - Provider: Concepcion Mcdowell RN)0449 (Given - Provider: Concepcion Mcdowell RN)1216 (Given - Provider: Genoveva Caraballo)1759 (Given - Provider: Genoveva Caraballo)2351 (Given - Provider: Madisyn Hill) 0642 (Not Given - Provider: Madisyn D Hill - Reason: Patient/family refused)1313 (Given - Provider: Genoveva Caraballo)1751 (Given - Provider: Genoveva Caraballo)2343 (Given - Provider: Opal Kumar RN) 0618 (Given - Provider: Opal Kumar RN)1158 (Given - Provider: Mikey Holt, RN) amLODIPine (Norvasc) tablet 5 mg 5 mg, Oral, Daily, First dose on Sat10/25/24 at 1515, Until Discontinued, Routine 1628 (Given - Provider: Genoveva Caraballo) 0833 (Given - Provider: Mikey Holt, RN) buPROPion (Wellbutrin) tablet 150 mg 150 mg, Nasogastric, 2 times daily, First dose (after last modification) on Sat10/19/24 at 0900, Until Discontinued, Routine 0818 (Given - Provider: Genoveva Caraballo)2011 (Given - Provider: Madisyn Hill) 0938 (Given - Provider: Genoveva Caraballo)2020 (Given - Provider: Opal Kumar RN) 0833 (Given - Provider: Mikey Holt, STEFFI) carvedilol (Coreg) tablet 3.125 mg 3.125 mg, Nasogastric, 2 times daily, First dose on Sat10/19/24 at 0900, Until Discontinued, Routine 0818 (Not Given - Provider: Genoveva Caraballo - Reason: Patient/family refused)2011 (Given - Provider: Madisyn Hill) 0939 (Given - Provider: Genoveva Caraballo)2020 (Given - Provider: Opal uKmar RN) 0833 (Given - Provider: Mikey Holt, RN) enoxaparin (Lovenox) syringe 40 mg 40 mg, Subcutaneous, Daily, First dose on Sat10/19/24 at 0900, Until Discontinued, Routine 0818 (Given - Provider: Genoveva Caraballo) 0939 (Given - Provider: Genoveva Caraballo) 0833 (Given - Provider: Mikey Holt, STEFFI) gabapentin (Neurontin) capsule 100 mg 100 mg, Nasogastric, 2 times daily, First dose on Sat10/22/24 at 2100, Until Discontinued, Routine 0818 (Given - Provider: Genoveva Caraballo)2011 (Given - Provider: Madisyn Hill) 0939 (Given - Provider: Genoveva Caraballo)2021 (Given - Provider: Opal Kumar RN) 0833 (Given - Provider: Mikey Holt, RN) magnesium oxide (Mag-Ox) tablet 400 mg 400 mg, Oral, Daily, 3 doses, First dose on Sat10/26/24 at 1100, Last dose on Sat10/28/24 at 0900, Routine 1122 (Given - Provid er: Mikey Holt RN) magnesium sulfate IVPB 2 g (COMPLETED) 2 g, Intravenous, Once, 1 dose, On 10/24/24 at 1130, at 25 mL/hr, Administer over 2 Hours, Routine 1217 (New Bag - Provider: Genoveva Caraballo) magnesium sulfate IVPB 2 g (COMPLETED) 2 g, Intravenous, Once, 1 dose, On Sat10/25/24 at 1315, Routine 1345 (New Bag - Provider: Genoveva Caraballo) methocarbamol (Robaxin) tablet 500 mg (CANCELED) 500 mg, Nasogastric, 4 times daily, First dose on Sat10/19/24 at 0900, Until Discontinued, Routine 0818 (Given - Provider: Genoveva Caraballo) methocarbamol (Robaxin) tablet 750 mg 750 mg, Nasogastric, 4 times daily, First dose (after last modification) on 10/24/24 at 1400, Until Discontinued, Routine 1325 (Given - Provider: Genoveva Caraballo)1712 (Given - Provider: Genoveva Caraballo)2324 (Given - Provider: Madisyn Hill) 0939 (Given - Provider: Genoveva Caraballo)1313 (Given - Provider: Genoveva Caraballo)1751 (Given - Provider: Genoveva Caraballo)2225 (Given - Provider: Opal Kumar RN) 0833 (Given - Provider: Mikey Holt, STEFFI)1400 (Canceled Entry - Provider: Automatic Discharge Provider - Comment: Automatically canceled at discontinue of medication order) mometasone-formoterol (Dulera 200) 200-5 MCG/ACT inhaler 2 puff 2 puff, Inhalation, 2 times daily, First dose on Sat10/19/24 at 0900, Until Discontinued, Routine 0818 (Given - Provider: Genoveva Caraballo)2017 (Given - Provider: Madisyn Hill) 0939 (Given - Provider: Genoveva Caraballo)202 (Given - Provider: Opal Kumar RN) 0833 (Given - Provider: Mikey Holt RN) oxyCODONE (Roxicodone) immediate release tablet 5 mg (COMPLETED) 5 mg, Oral, Once, 1 dose, On 10/25/24 at 0015, Routine 2352 (Given - Provider: Madisyn Hill) pantoprazole (Protonix) EC tablet 40 mg 40 mg, Oral, Daily, First dose on 10/25/24 at 0900, Until Discontinued, Routine 09 (Given - Provider: Genoveva Caraballo) 08 (Given - Provider: Mikey Holt RN) pantoprazole (Protonix) injection 40 mg (CANCELED) 40 mg, Intravenous, Daily, First dose on Sat10/19/24 at 0900, Until Discontinued, Routine 08 (Given - Provider: Genoveva Caraballo) phosphorus (K Phos Neutral) tablet 1 tablet 1 tablet (250 mg), Oral, 2 times daily, 6 doses, First dose on Sat10/26/24 at 1100, Last dose on Sat10/28/24 at 2100, Routine 1122 (Given - Provid er: Mikey Holt RN) potassium chloride (Klor-Con) packet 20 mEq (COMPLETED) 20 mEq, Oral, Once, 1 dose, On 10/24/24 at 1315, Routine 1326 (Given - Provider: Genoveva Caraballo) potassium chloride (Klor-Con) packet 40 mEq (COMPLETED) 40 mEq, Oral, Every 4 hours, 2 doses, First dose (after last modification) on 10/24/24 at 1315, Last dose on 10/24/24 at 1715, Routine 1326 (Given - Provider: Genoveva Caraballo)1712 (Given - Provider: Genoveva Caraballo) rOPINIRole (Requip) tablet 0.5 mg 0.5 mg, Nasogastric, Nightly, First dose (after last modification) on Cherri 10/22/24 at 2100, Until Discontinued, Routine 2011 (Given - Provider: Madisyn Hill) 2021 (Given - Provider: Opal Kumar RN) rosuvastatin (Crestor) tablet 20 mg 20 mg, Oral, Nightly, First dose on 10/26/24 at 2100, Until Discontinued, Routine sodium phosphates 30 mmol in sodium chloride 0.9 % 500 mL IVPB (COMPLETED) 30 mmol, Intravenous, Once, 1 dose, On 5/4/25 at 1315, Routine 1401 (New Bag - Provider: Genoveva Caraballo) Tiotropium [place] Monohydrate (Spiriva Respimat) 2.5 MCG/ACT inhaler 2 puff 2 puff, Inhalation, Daily, First dose on Sat10/19/24 at 0900, Until Discontinued, Routine 0825 (Not Given - Provider: Genoveva Caraballo - Reason: Patient/family refused) 0942 (Not Given - Provider: Genoveva Caraballo - Reason: Patient/family refused) 0833 (Given - Provider: Mikey Holt RN) traZODone (Desyrel) tablet 50 mg 50 mg, Oral, Nightly, First dose on Sat10/25/24 at 2230, Until Discontinued, Routine 2224 (Given - Provider: Opal Kumar RN) PRN Medication Order 10/24/2024 10/25/2024 10/26/2024 calcium carbonate (Tums) chewable tablet 500 mg 500 mg, Oral, 4 times daily PRN, Starting on Sat10/23/24 at 0511, Until Sat10/26/24 at 1519, Routine, indigestion, heartburn dextrose 50 % solution 12.5 g(Linked Group 1) 12.5 g, Intravenous, Every 15 min PRN, Starting on Sat10/21/24 at 0033, Until Sat10/26/24 at 1519, Routine, low blood sugar glucagon (human recombinant) injection 1 mg(Linked Group 1) 1 mg, Intramuscular, Every 15 min PRN, Starting on Sat10/21/24 at 0033, Until Sat10/26/24 at 1519, Routine, low blood sugar per Hypoglycemia Prevention and Treatment protocol HYDROmorphone (Dilaudid) injection 0.5 mg (CANCELED) 0.5 mg, Intravenous, Every 2 hour PRN, Starting on Sat10/19/24 at 0105, Until Sat10/24/24 at 0632, Routine, mild - moderate pain 0101 (Given - Provider: Concepcion Mcdowell RN)0449 (Given - Provider: Concepcion Mcdowell RN) loperamide (Imodium A-D) tablet 2 mg 2 mg, Oral, 4 times daily PRN, Starting on Sat10/26/24 at 0837, Until Sat10/26/24 at 1519, Routine, diarrhea ondansetron (Zofran) injection 4 mg(Linked Group 2) 4 mg, Intravenous, Every 6 hours PRN, Starting on Sat10/19/24 at 0105, Until 10/26/24 at 1519, Routine, vomiting, nausea 1604 (Given - Provider: Genoveva Caraballo) 0005 (Canceled Entry - Provider: Madisyn Hill)1345 (See Alternative - Provider: Genoveva Caraballo) ondansetron ODT (Zofran-ODT) disintegrating tablet 4 mg(Linked Group 2) 4 mg, Oral, Every 6 hours PRN, Starting on Sat10/19/24 at 0105, Until 10/26/24 at 1519, Routine, nausea, vomiting 1604 (See Alternative - Provider: Genoveva Caraballo) 0005 (See Alternative - Provider: Madisyn Hill)1345 (Given - Provider: Genoveva Caraballo) oxyCODONE (Roxicodone) immediate release tablet 10 mg(Linked Group 3) 10 mg, Oral, Every 6 hours PRN, Starting on 10/24/24 at 0632, Until Sat10/26/24 at 1519, Routine, severe pain 0819 (Given - Provider: Genoveva Caraballo)1325 (Given - Provider: Genoveva Caraballo)2011 (Given - Provider: Madisyn Hill) 0434 (Given - Provider: Madisyn Hill)0945 (Given - Provider: Genoveva Caraballo)1629 (Given - Provider: Genoveva Caraballo)2225 (Given - Provider: Opal Kumar RN) 0425 (Given - Provider: Opal Kumar RN)1036 (Given - Provider: Mikey Holt RN) oxyCODONE (Roxicodone) immediate release tablet 5 mg(Linked Group 3) 5 mg, Oral, Every 6 hours PRN, Starting on 10/24/24 at 0632, Until Sat10/26/24 at 1519, Routine, moderate pain 0819 (See Alternative - Provider: Genoveva Caraballo)1325 (See Alternative - Provider: Genoveva Caraballo)2011 (See Alternative - Provider: Madisyn Hill) 0434 (See Alternative - Provider: Madisyn Hill)0945 (See Alternative - Provider: Genoveva Caraballo)1629 (See Alternative - Provider: Genoveva Caraballo)2225 (See Alternative - Provider: Opal Kumar, RN) 0425 (See Alternative - Provider: Opal Kumar, RN)1036 (See Alternative - Provider: Mikey Holt RN) prochlorperazine (Compazine) injection 2.5 mg 2.5 mg, Intravenous, Every 6 hours PRN, Starting on Sat10/24/24 at 1846, Until Sat10/26/24 at 1519, Routine, nausea, vomiting 2012 (Given - Provider: Madisyn Hill) Linked Groups Order Group 1: glucose (Glutose) 40 % oral gel 15 grams of glucose (CANCELED) 15 grams of glucose, Sublingual, Every 15 min PRN, Starting on Sat10/21/24 at 0033, Until Sat10/21/24 at 0749, Routine, low blood sugar, per Hypoglycemia Prevention and Treatment protocol Or dextrose 50 % solution 12.5 gJump to med 12.5 g, Intravenous, Every 15 min PRN, Starting on Sat10/21/24 at 0033, Until Sat10/26/24 at 1519, Routine, low blood sugar Or glucagon (human recombinant) injection 1 mgJump to med 1 mg, Intramuscular, Every 15 min PRN, Starting on Sat10/21/24 at 0033, Until Sat10/26/24 at 1519, Routine, low blood sugar per Hypoglycemia Prevention and Treatment protocol Group 2: ondansetron ODT (Zofran-ODT) disintegrating tablet 4 mgJump to med 4 mg, Oral, Every 6 hours PRN, Starting on Sat10/19/24 at 0105, Until Sat10/26/24 at 1519, Routine, nausea, vomiting Or ondansetron (Zofran) injection 4 mgJump to med 4 mg, Intravenous, Every 6 hours PRN, Starting on Sat10/19/24 at 0105, Until Sat10/26/24 at 1519, Routine, vomiting, nausea Or ondansetron (Zofran) 4 MG/5ML solution 4 mg (CANCELED) 4 mg, Oral, Every 6 hours PRN, Starting on Sat10/19/24 at 0105, Until Sat10/19/24 at 0632, Routine, nausea, vomiting Group 3: oxyCODONE (Roxicodone) immediate release tablet 5 mgJump to med 5 mg, Oral, Every 6 hours PRN, Starting on 10/24/24 at 0632, Until 10/26/24 at 1519, Routine, moderate pain Or oxyCODONE (Roxicodone) immediate release tablet 10 mgJump to med 10 mg, Oral, Every 6 hours PRN, Starting on 10/24/24 at 0632, Until 10/26/24 at 1519, Routine, severe pain documented in this encounter Additional Health Concerns Assessment Noted Time A fall risk assessment has been complete d for the patient 03/20/2024 8:48 AM EDT A Body Mass Index follow-up plan has been documented for the patient 10/26/2024 12:39 PM EDT documented as of this encounter Care Teams Retail Management Trainee Relationship Specialty Start Date End Date Roman Medina MD PCP - General 06/24/22 Lazarus North MD [address] [place] [id number] 06/24/22 documented as of this encounter
--- OUTSIDE RECORDS SUMMARY | 2024-10-21 12:30 | XMS_ITS | Encounter Summary ---
Author Organization [facility] Address [address] [place] [address] Care Team Providers Care Agile Tester Name Role Phone Roman Medina MD Primary Care Provider [phone] Lazarus North MD Unavailable [phone] Reason for Visit * Reason Comments Abdominal Pain Vomiting * Auth/Cert (Routine) Specialty Diagnoses / Procedures Referred By Contairam t Referred To Contact Diagnoses SBO (small bowel obstruction) ([facility]) Little Mendoza MD [id number] [place] [address] Phone: tel: fax: [facility] [address] [place] [address] Phone: tel: Referral ID Status Reason Start Date Expiration Date Visits Re quested Visits Authorized [id number] 1 1 Encounter Details Date Type Department Care Team (Late st Contact Info) Description 10/21/2024 12:30 PM EDT - 10/21/2024 3:00 PM EDT Surgery [facility] [address] [place] [address] Farnaz Brito MD [address] [address] LAPAROTOMY, EXPLORATORY, WITH LYSIS OF ADHESIONS Surgery Details Date/Time Status Location OR Service Patient Class Case Class Case Type Trauma Case? 10/21/2024 12:30 PM Posted [facility] OR [facility] OR 02 General Surgery Inpatient T-Timed: to be done within 24 hours Panel 1 Procedure L[facility] Anes Op Region Wound Class Comments LAPAROTOMY, EXPLORATORY, WITH LYSIS OF ADHESIONS N/A General Abdomen Class II/ Clean C ontaminated Surgeon Surgeon Role Service Panel Farnaz Brito MD Primary General Surgery 1 Farnaz Brito MD Primary General Surgery 1 Gui Will MD Resident - Assisting 1 Farnaz Trejo MD Resident - Assisting 1 documented in this encounter Social History Tobacco Use Types Packs/Day Years Used Date Smoking Tobacco: Former Cigarettes Q uit: 2018 Smokeless Tobacco: Never Alcohol Use Standard Drinks/Week Comments Not Currently 1 (1 standard drink = 0.6 oz pur e alcohol) occasionally Humiliation, Afraid, Rape, and Kick questionnair e Answer Date Recorded Within the last year, have y ou been afraid of your partner or ex-partner? No 10/01/2024 Within the last year, have y ou been humiliated or emotionally abused in other ways by your partner or ex-partner? No Within the last year, have y ou been kicked, hit, slapped, or otherwise physically hurt by your partner or ex-partner? No 10/01/2024 Within the last year, have y ou been raped or forced to have any kind of sexual activity by your partner or ex-partner? No 10/01/2024 Overall Financial Resource Strain (CARDIA) Answe r [...] the money to buy more. Never true 10/02/19 25 Within the past 12 months, t he food you bought just didn't last and you didn't have money to get more. Never true 10/01/2024 PRAPARE - Transportation Answer Date Re corded In the past 12 months, has l ack of transportation kept you from medical appointments or from getting medications? No 09/22 In the past 12 months, has l ack of transportation kept you from meetings, work, or from getting things needed for daily living? No 10/01/2024 Housing Stability Vital Sign Answer Efe e [...] place to sleep or slept in a halfway (including now)? No 07/15/2023 Housing Stability Vital Sign Answer Efe e Recorded In the last 12 months, was t here a time when you were not able to pay the mortgage or rent on time? No 10/01/2024 In the past 12 months, how m any times have you moved where you were living? 0 10/01/2024 At any time in the past 12 m [facility], were you homeless or living in a halfway (including now)? 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 0 12/07/2023 CAGE Questionnaire Score 0 024 Utilities Answer Date Recorded In the past 12 months has th e electric, gas, oil, or water company threatened to shut off services in your home? No 10/01/2024 PHQ-2A Answer Date Recorded Patient Health Questionnaire-2 Score 2 04/10/2023 Comments No Sex and Gender Information Value Date Recorded Sex Assigned at Female 10/17/2023 8:34 AM EDT Legal Sex Female 6:40 PM EDT Gender Identity Female 10/17/2023 8:34 AM EDT Sexual Orientation Not on file documented as of this encounter Last Filed Vital Signs Vital Sign Reading Time Taken Comments Blood Pressure 147/69 10/21/2024 12:39 PM EDT Pulse 75 10/21/2024 12:39 PM EDT Temperature 36.9 C (98.4 F) 10/21/2024 12:39 PM EDT Respiratory Rate 18 10/21/2024 12:3 9 PM EDT Oxygen Saturation 97% 10/21/2024 12: 50 PM EDT Inhaled Oxygen Concentration - - Weight 70.3 kg (154 lb 15.7 oz) 10/18/2024 8:35 PM EDT Height - - Body [...] Date of Assessment Author No Risk Indicated 10/21/2024 8:00 AM EDT Mahsa Lovelace RN * Question Answer Date of Assessment Author 1. Wish to be (Past 1 Month) No 025 8:00 AM EDT Mahsa Lovelace RN 2. Non-Specific Active Suici claribel Thoughts (Past 1 Month) No 10/21/2024 8:00 AM EDT Mahsa Lovelace RN 6. Suicidal Behavior (Lifetime) No 8:00 AM EDT Mahsa Lovelace RN documented as of this encounter Mental Status * Because of a physical, mental, or emotional condition, do you have serious difficulty concentrating, remembering, or making decisions? (5 years old or older) Answer Entry Date Author No 07/15/2023 12:07 PM Carlos Bradley RN documented in this encounter Discharge Instructions * Discharge Instructions* Rebecca Cadena, ANGELINE - 10/26/2024 8:57 AM EDT Discharge Instructions: [...] please call our General Surgery Clinic at [phone]. If there are questions or concerns after discharge from the hospital, call Linda Parham, Nurse Coordinator between 7am-3pm at [phone]. If it is after hours, weekends, and holidays please call [phone] and ask for the resident refrigeration plant cork insulator for Emergency General Surgery. Medication requests should be made between the hours of 9:00 AM to 3:00 PM Saturday thru Saturday. Please note that based upon recent changes to [place] law related to prescribing opioid pain medications, our providers will not provide refills on controlled medications after your hospital discharge following a major surgery or trauma. [place]:260. documented in this encounter Medications at Time of Discharge acetaminophen (Tylenol) 325 MG tablet Take 2 tablets by mouth every 6 hours. Under [place] law, monthly prescriptions (30 days) can be refilled at 25 days and three-month prescriptions (90 days) at 80 days. Please contact the insurance company with questions if refills are denied. 100 tablet 5 albuterol 108 (90 Base) MCG/ACT inhaler Inhale [...] 1 5 12/26/19 25 ergocalciferol 1.25 MG (17971 UT) capsule Take 1 capsule by mouth [...] Note Roel Cervantes 69 y.o. female CSN: [id number] Admission: 10/18/2024 8:19 PM Primary Problem: SBO (small bowel obstruction) ([facility]) Primary J2Ee Java Developer: Primary Caregiver: Self Assistance Available at Discharge: Availability of Care Givers (#Hours): 24 hours (Patient's spouse is available 24/ as needed) Family/J2Ee Java Developer(s) Willingness Assessed to care for patient at [...] Keren Bro RN * Discharge Summary - Patrick Cadenanaz Gabriel APRN - 10/26/2024 11:37 AM EDT Hospitalization Admit Date/Time: 10/18/2024 8:19 PM Admitting Attending: Little Mendoza Discharge Date: 10/26/2024 Discharge Attending Physician: King Zapata MD PCP name and Address: Roman Medina MD [address] [place] [address] Referring provider name and address: No referring provider defined for this encounter. Chief Concern, Brief History of Present Illness, and Hospital Course Chief Complaint: abd pain, N/V Roel Cervantes [...] tablets by mouth every 6 hours. Under [place] law, monthly prescriptions (30 days) can be [...] 2 times a day. ergocalciferol 1.25 MG (79334 UT) capsule Commonly known as: Vitamin D-2 [...] Your Medications These medications were sent to [facility] - [place], [place] - [address] [address] [address] methenamine hippurate 1 g tablet These medications were sent to [facility] - [place], [place] - [address] [facility] [address] acetaminophen 325 MG tablet amLODIPine 5 MG tablet carvedilol 3.125 MG tablet loperamide 2 MG tablet naloxone 4 mg/0.1 mL nasal spray oxyCODONE 5 MG immediate release tablet Discharge Diagnosis Medical Problems Active and Resolved Hospital Problems Hospital HTN (hypertension) Overview Addendum 09/08/2024 9:51 AM by Estrellita Hennessy APRN Resume home carvedilol COPD (chronic obstructive pulmonary disease) ([facility]) Overview Addendum 10/25/2024 9:40 AM by Brigid Branham MD 2L nightly home O2 Mood disorder ([facility]) Overview Addendum 09/29/2024 11:28 AM by Estrellita Hennessy APRN Resume home meds Hypothyroidism Overview Addendum 10/26/2024 6:12 AM by King Zapata MD No home meds GERD (gastroesophageal reflux disease) Overview Addendum 09/08/2024 9:51 AM by Estrellita Hennessy APRN Resume PPI Emphysema/COPD ([facility]) Overview Addendum 09/29/2024 11:29 AM by Estrellita Hennessy APRN Pulm hygiene, IS, PEP Home inhalers Ileostomy present ([facility]) Overview Addendum 10/25/2024 9:42 AM by Brigid Branham MD Hx of perf diverticulitis s/p total colectomy with end ileostomy 2020 and revision 2021 Monitor output RESOLVED: Electrolyte imbalance Overview Signed 09/29/2024 11:31 AM by Estrellita Hennessy APRN Monitor/trend Replete as needed * (Principal) RESOLVED: SBO (small bowel obstruction) ([facility]) Overview Addendum 10/24/2024 9:23 AM by Chito [...] please call our General Surgery Clinic at [phone]. If there are questions or concerns after discharge from the hospital, call Linda Parham, Nurse Coordinator between 7am-3pm at [phone]. If it is after hours, weekends, and holidays please call [phone] and ask for the resident refrigeration plant cork insulator for Emergency General Surgery. Medication requests should be made between the hours of 9:00 AM to 3:00 PM Saturday thru Saturday. Please note that based upon recent changes to [place] law related to prescribing opioid pain medications, our providers will not provide refills on controlled medications after your hospital discharge following a major surgery or trauma. [place], [place] KAR9:260. Outpatient Follow-Up Future Appointments Date Time Provider Department Center 11/05/2024 10:15 AM Farnaz Brito MD [facility] Test Results Pending At Discharge Pending Labs [...] refill takes less than 2 seconds. Comments: [place] c/d/i Neurological: General: No focal deficit present. [...] sent to lab via tube system. * Sary Mich - Roger Rush RN - 10/26/2024 11:06 AM EDT Images from the original note were not included. [address] Small Bowel Obstruction A small bowel obstruction [...] stool). Last Reviewed Date: 2024 00:00:00 ?? [id number] [employer]. All rights reserved. This information is not [...] Edited by: Eran Quiñonez MD at 10/25/2024 0772 Relevant review of systems was obtained as [...] POA * (Principal) SBO (small bowel obstruction) ([facility]) Yes Overview Addendum 10/24/2024 9:23 AM by Chito Dubon MD 10/21: s/p LONNIE (Daryl) Reg Diet Strict I/Os HTN (hypertension) Yes Overview Addendum 09/08/2024 9:51 AM by Estrellita Hennessy APRN Resume home carvedilol Mood disorder ([facility]) Yes Overview Addendum 09/29/2024 11:28 AM by Estrellita Hennessy APRN Resume home meds Hypothyroidism Yes Overview Addendum 09/08/2024 9:51 AM by Estrellita Hennessy APRN Resumharvey home meds GERD (gastroesophageal reflux disease) Yes Overview Addendum 09/08/2024 9:51 AM by Estrellita Hennessy APRN Resume PPI Emphysema/COPD ([facility]) Yes Overview Addendum 09/29/2024 11:29 AM by [...] Chito Dubon MD Complicates care Anal cancer ([facility]) Astigmatism of both eyes with presbyopia Combined form of age-related cataract, both eyes Coronary artery calcification seen on CT scan Diastolic dysfunction Elevated left ventricular end-diastolic pressure (LVEDP) Almazan catheter problem ([facility]) HHD (hypertensive heart disease) Lumbar radiculopathy Vitamin D deficiency At high risk for falls Complication of implanted vaginal mesh, unspecified complication, subsequent encounter Ileostomy present ([facility]) Overview Signed 09/29/2024 11:30 AM by Estrellita [...] Review Outcome: Ongoing, Progressing Flowsheets (Taken 10/25/2024 0622) Progress: improving Plan of Care Reviewed With: [...] Airway None Output by Drain (mL) 10/22/24 0700 - 10/22/24 1859 10/22/24 1900 - 10/23/24 0659 10/23/24 07 - 10/23/24 1859 10/23/24 1900 - 10/24/24 0659 10/24/24 0700 - 10/24/24 0706 Requested LDAs do not [...] POA * (Principal) SBO (small bowel obstruction) ([facility]) Yes Overview Signed 2024 9:46 AM by Estrellita Hennessy APRN 10/21: s/p LONNIE (Daryl) NGT NPO, mIVF's HTN (hypertension) Yes Overview Addendum 09/08/2024 9:51 AM by Estrellita Hennessy APRN Resume home carvedilol Mood disorder ([facility]) Yes Overview Addendum 09/29/2024 11:28 AM by Estrellita Hennessy APRN Resume home meds Hypothyroidism Yes Overview Addendum 09/08/2024 9:51 AM by Estrellita Hennessy APRN Resume home meds GERD (gastroesophageal reflux disease) Yes Overview Addendum 09/08/2024 9:51 AM by Estrellita Hennessy APRN Resume PPI Emphysema/COPD ([facility]) Yes Overview Addendum 09/29/2024 11:29 AM by Estrellita Hennessy APRN Pulm hygiene, IS, PEP Home inhalers Electrolyte imbalance Yes Overview Signed 09/29/2024 11:31 AM by Estrellita Hennessy APRN Monitor/trend Replete as needed Hyperlipidemia Yes Overview Addendum 09/08/2024 9:51 AM by Estrellita Hennessy APRN Resume home statin Non-Hospital Problems Degenerative disc disease, lumbar Mild obstructive sleep apnea Anal cancer ([facility]) Astigmatism of both eyes with presbyopia Combined form of age-related cataract, both eyes Coronary artery calcification seen on CT scan Diastolic dysfunction Elevated left ventricular end-diastolic pressure (LVEDP) Almazan catheter problem ([facility]) HHD (hypertensive heart disease) Lumbar radiculopathy Vitamin D deficiency At high risk for falls Complication of implanted vaginal mesh, unspecified complication, subsequent encounter Ileostomy present ([facility]) Overview Signed 09/29/2024 11:30 AM by Estrellita [...] Note Roel Cervantes 69 y.o. female CSN: [id number] Admission: 10/18/2024 8:19 PM Primary Problem: SBO (small bowel obstruction) ([facility]) Optical Effects Camera Operator reviewed chart and spoke with patient at bedside to complete this Initial Case Management Assessment. PCP: Roman Medina MD Emergency Contact: Extended Emergency Contact Information Primary Emergency Contact: Cr Andersen Mobile Relation: Spouse Reeling Machine Setup Operator needed? No Secondary Emergency Contact: RubenAugusto Mobile Relation: Friend Reeling Machine Setup Operator needed? No Insurance: Primary Visit Coverage Payer Plan Sponsor Code Group Number Group Name AETNA MEDICARE AETNA MEDICARE [id number] Primary Visit Coverage Subscriber Subscriber ID Subscriber Name Subscriber N Subscriber Address [id number] ROEL CERVANTES [facility] [phone] [address] [place] [address] Secondary Visit Coverage Payer Plan Sponsor Code Group Number Group Name [place] TRAD[place] Secondary Visit Coverage Subscriber Subscriber ID Subscriber Name Subscriber SSN Subscriber Address [id number] ROEL CERVANTES [facility] [id number] [address] [facility] [place] [address] Patient information: Lives with spouse and one other person [address] [place] [address] 4 steps to enter trailer, no interior [...] walker, rolling, wheelchair, manual [facility] Income Information: Income Source: Disabled Income/Expense Information: (Meets 300% FPG) Current Resources Utilized: Food [place] Housing Circumstances-Z Codes: Housing Circumstances (select all [...] / Outpatient Dialysis Services: Current DME Provider: [facility] provides home oxygen Living Will/Advance Directive/Power of Head Banquet Waiter/Waitress /Guardian: Have you reviewed your Advance Directive [...] 1859 10/22/24 1900 - 10/23/24 0659 10/23/24 07 - 10/23/24 0707 Requested LDAs do not [...] Signed 2024 9:46 AM by Estrellita Hennessy, CAMPUS DIRECTOR 10/21: s/p LONNIE (Daryl) NGT NPO, mIVF's HTN (hypertension) Yes Overview Addendum 09/08/2024 9:51 AM by Estrellita Hennessy APRN Resume home carvedilol Mood disorder ([facility]) Yes Overview Addendum 09/29/2024 11:28 AM by Estrellita Hennessy APRN Resume home meds Hypothyroidism Yes Overview Addendum 09/08/2024 9:51 AM by Estrellita Hennessy APRN Resume home meds GERD (gastroesophageal reflux disease) Yes Overview Addendum 09/08/2024 9:51 AM by Estrellita Hennessy APRN Resume PPI Emphysema/COPD ([facility]) Yes Overview Addendum 09/29/2024 11:29 AM by Estrellita Hennessy APRN Pulm hygiene, IS, PEP Home inhalers Electrolyte imbalance Yes Overview Signed 09/29/2024 11:31 AM by Estrellita Hennessy APRN Monitor/trend Replete as needed Hyperlipidemia Yes Overview Addendum 09/08/2024 9:51 AM by Estrellita Hennessy APRN Resume home statin Non-Hospital Problems Degenerative disc disease, lumbar Mild obstructive sleep apnea Anal cancer ([facility]) Astigmatism of both eyes with presbyopia Combined form of age-related cataract, both eyes Coronary artery calcification seen on CT scan Diastolic dysfunction Elevated left ventricular end-diastolic pressure (LVEDP) Almazan catheter problem ([facility]) HHD (hypertensive heart disease) Lumbar radiculopathy Vitamin D deficiency At high risk for falls Complication of implanted vaginal mesh, unspecified complication, subsequent encounter Ileostomy present ([facility]) Overview Signed 09/29/2024 11:30 AM by Estrellita [...] Note Roel Cervantes 69 y.o. female CSN: [id number] Admission: 10/18/2024 8:19 PM Primary Problem: SBO (small bowel obstruction) (CMS/HCC) Anticipated Discharge Date: 10/27 Has Discharge Plans Changed? No Medicare Second Notice: Needs IMM prior to DC Additional Comments Per primary treatment team, patient is not medically ready to discharge at this time. CM continues to follow. Keren Bro RN * Progress Notes - Namrata Ortega - 2024 9:40 AM EDT Physical Therapy Evaluation Patient Name: Roel Cervatnes Today's Date: 2024 PT Discharge Recommendations: Home with assistance (initial 24 hour assist) Equipment Recommended: Patient owns appropriate equipment, None History Roel Cervantes is 69 y.o. female admitted 10/18/2024 for work-up of SBO (small bowel obstruction) ([facility]). Problem List Active Hospital Problems Diagnosis Date Noted SBO (small bowel obstruction) ([facility]) 10/19/2024 Electrolyte imbalance 09/29/2024 Hypothyroidism 06/25/2022 HTN (hypertension) 06/25/2022 GERD (gastroesophageal reflux disease) 06/25/2022 Mood disorder ([facility]) 06/25/2022 Emphysema/COPD ([facility]) 11/17/2014 Hyperlipidemia 10/13/2021 Procedures 10/21/2024 Procedure(s): LAPAROTOMY, EXPLORATORY, WITH LYSIS OF ADHESIONS Past Medical History Patient has a past medical history of Acute embolism and thrombosis of unspecified vein, Acute kidney injury ([facility]) (10/13/2021), YAJAIRA (acute kidney injury) ([facility]) (12/31/2021), Altered mental status (04/10/2023), Anemia (04/10/2023), Anxiety disorder, unspecified, Blood clot in vein, BRBPR (bright red blood per rectum) (03/22/2014), Carpal tunnel syndrome, Cellulitis (04/10/2023), COPD (chronic obstructive pulmonary disease) ([facility]) (06/25/2022), Encounter for assessment for small bowelobstruciton (10/17/2021), GERD (gastroesophageal reflux disease) (06/25/2022), Heart failure (06/25/2022), Hematoma (04/10/2023), Hemorrhage of anus and rectum, HTN (hypertension) (06/25/2022), Hypomagnesemia (10/13/2021), Hypothyroidism (06/25/2022), Latent tuberculosis, 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[facility]), Malignant neoplasm of rectum ([facility]), Numbness (04/10/2023), Obstipation (04/10/2023), Partial small bowel obstruction ([facility]) (10/13/2021), Personal history of diseases of the [...] disorders, Pleural effusion (04/10/2023), Pulmonary embolism, bilateral ([facility]) (10/08/2022), Recurrent UTI (04/10/2023), Sacroiliitis ([facility]) (04/10/2023), Sepsis ([facility]) (04/10/2023), Shoulder pain (04/10/2023), Sleep apnea, unspecified, [...] (Room air) Lines and Tubes: Telemetry NG/OG Forrest Sump Nasogastric 14 Fr Right nostril (Active) [...] admission Level of Mobility: Ambulatory- community Mobility [place]: Independent gait with device (cane or RW) [...] Mobility Bed Mobility Exam: Rolling/Turning Level of [place]: Contact guard Physical/Nonphysical Assist: Supervision, Verbal Cues Bed Mobility Exam: Scooting/Bridging Level of [place]: Contact guard Physical/Nonphysical Assist: Supervision, Verbal Cues Bed Mobility Exam: Supine to Sit Level of [place]: Contact guard Physical/Nonphysical Assist: Supervision, Verbal Cues, Minimal cues Assistive Device: Bed rails Bed Mobility Exam: Sit to Supine Level of [place]: Contact guard Physical/Nonphysical Assist: Supervision, Verbal Cues, Minimal cues Assistive Device: Bed rails Transfers Transfer Exam: Sit to stand Level of [place]: Minimum assist (75% patient's effort) Physical/Nonphysical Assist: Supervision, Verbal Cues, Minimal cues, 1 person + 1 person to manage equipment Assistive Device: Walker, rolling Transfer Exam: Stand to Sit Level of [place]: Contact guard Physical/Nonphysical Assist: Supervision, Verbal Cues, [...] signs remained stable throughout mobility. Standardized Assessments [facility] 6-Clicks Mobility Assessment Difficulty patient has turning [...] 3-5 steps with a railing?: A little [facility] 6-Clicks Mobility Assessment Total : 18 No [...] AM. * Progress Notes - Mahsa Winn - 2024 9:39 AM EDT Occupational Therapy Evaluation Patient Name: Roel Cervantes Today's Date: 2024 OT Discharge Recommendations: Home with 24 hour assistance Equipment Recommended: Patient owns appropriate equipment History Roel Cervantes is 69 y.o. female admitted 10/18/2024 for work-up of SBO (small bowel obstruction) ([facility]). Problem List Active Hospital Problems Diagnosis Date Noted SBO (small bowel obstruction) ([facility]) 10/19/2024 Electrolyte imbalance 09/29/2024 Hypothyroidism 06/25/2022 HTN (hypertension) 06/25/2022 GERD (gastroesophageal reflux disease) 06/25/2022 Mood disorder ([facility]) 06/25/2022 Emphysema/COPD ([facility]) 11/17/2014 Hyperlipidemia 10/13/2021 Procedures 10/21/2024 Procedure(s): LAPAROTOMY, EXPLORATORY, WITH LYSIS OF ADHESIONS Past Medical History Patient has a past medical history of Acute embolism and thrombosis of unspecified vein, Acute kidney injury ([facility]) (10/13/2021), YAJAIRA (acute kidney injury) ([facility]) (12/31/2021), Altered mental status (04/10/2023), Anemia (04/10/2023), Anxiety disorder, unspecified, Blood clot in vein, BRBPR (bright red blood per rectum) (03/22/2014), Carpal tunnel syndrome, Cellulitis (04/10/2023), COPD (chronic obstructive pulmonary disease) ([facility]) (06/25/2022), Encounter for assessment for small bowelobstruciton (10/17/2021), GERD (gastroesophageal reflux disease) (06/25/2022), Heart failure (06/25/2022), Hematoma (04/10/2023), Hemorrhage of anus and rectum, HTN (hypertension) (06/25/2022), Hypomagnesemia (10/13/2021), Hypothyroidism (06/25/2022), Latent tuberculosis, 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[facility]), Malignant neoplasm of rectum ([facility]), Numbness (04/10/2023), Obstipation (04/10/2023), Partial small bowel obstruction ([facility]) (10/13/2021), Personal history of diseases of the [...] disorders, Pleural effusion (04/10/2023), Pulmonary embolism, bilateral ([facility]) (10/08/2022), Recurrent UTI (04/10/2023), Sacroiliitis (CMS/HCC) (04/10/2023), [...] (Room air) Lines and Tubes: Telemetry NG/OG Forrest Sump Nasogastric 14 Fr Right nostril (Active) [...] admission Level of Mobility: Ambulatory- community Mobility [place]: Independent gait with device (cane or RW) [...] Mobility Bed Mobility Exam: Rolling/Turning Level of [place]: Contact guard Physical/Nonphysical Assist: Supervision, Verbal Cues Bed Mobility Exam: Scooting/Bridging Level of [place]: Contact guard Physical/Nonphysical Assist: Supervision, Verbal Cues Bed Mobility Exam: Supine to Sit Level of [place]: Contact guard Physical/Nonphysical Assist: Supervision, Verbal Cues, Minimal cues Assistive Device: Bed rails Bed Mobility Exam: Sit to Supine Level of [place]: Contact guard Physical/Nonphysical Assist: Supervision, Verbal Cues, Minimal cues Assistive Device: Bed rails Transfers Transfer Exam: Sit to stand Level of [place]: Minimum assist (75% patient's effort) Physical/Nonphysical Assist: Supervision, Verbal Cues, Minimal cues, 1 person + 1 person to manage equipment Assistive Device: Walker, rolling Transfer Exam: Stand to Sit Level of [place]: Minimum assist (75% patient's effort) Physical/Nonphysical Assist: [...] CGA for dynamic sitting balance. Standardized Assessments [facility] 6-Click Daily Activities Help from Other: Don/Doff Regular Lower Body Clothings: Little Help From Other: Bathing: Little Help From Other: Toileting: Little Help From Other: Don/Doff Upper Body Clothings: Little Help From Other: Grooming: None Help From Other: Eating Meals: None [facility] 6 Click - Daily Activities Score: 20 [...] 0659 10/22/24 07 - 10/22/24 1859 10/22/24 190 [...] Yes Overview Addendum 09/08/2024 9:51 AM by GerhardEstrellita mary APRN Resume home carvedilol Mood disorder ([facility]) Yes Overview Addendum 09/29/2024 11:28 AM by Estrellita Hennessy APRN Resume home meds Hypothyroidism Yes Overview Addendum 09/08/2024 9:51 AM by Estrellita Hennessy APRN Resume home meds GERD (gastroesophageal reflux disease) Yes Overview Addendum 09/08/2024 9:51 AM by Estrellita Hennessy APRN Resume PPI Emphysema/COPD ([facility]) Yes Overview Addendum 09/29/2024 11:29 AM by Estrellita Hennessy APRN Pulm hygiene, IS, PEP Home inhalers Electrolyte imbalance Yes Overview Signed 09/29/2024 11:31 AM by Estrellita Hennessy APRN Monitor/trend Replete as needed Hyperlipidemia Yes Overview Addendum 09/08/2024 9:51 AM by Estrellita Hennessy APRN Resume home statin Non-Hospital Problems Degenerative disc disease, lumbar Mild obstructive sleep apnea Anal cancer ([facility]) Astigmatism of both eyes with presbyopia Combined form of age-related cataract, both eyes Coronary artery calcification seen on CT scan Diastolic dysfunction Elevated left ventricular end-diastolic pressure (LVEDP) Almazan catheter problem ([facility]) HHD (hypertensive heart disease) Lumbar radiculopathy Vitamin D deficiency At high risk for falls Complication of implanted vaginal mesh, unspecified complication, subsequent encounter Ileostomy present ([facility]) Overview Signed 09/29/2024 11:30 AM by Estrellita Hennessy APRN Monitor output Plan: [ ] DC almazan, TOV [ ] Bolus for decreased UOP Hydronephrosis on KUB Lytes repleted Strict I&O's, Monitor UOP TLD: NGT LWSx FEN: NPO, mIVF's Dispo: Home with assistance (initial 24 hour assist) Edited by: Estrellita Hennessy APRN at 2024 1736 Farnaz Trejo MD Cosigned by Farnaz Brito [...] from the original note were not included. [facility] Department of Surgery Division of Acute [...] nursing staff. 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 Owen Pope MD PGY-1 General Surgery Pager: [phone] * Anesthesia PACU Signout - Blaine Rucker [...] PM EDT Operative Note Date: 10/21/24 Location: [facility] Name: Roel Cervantes, : 1955, Diagnoses: Pre-op Diagnosis SBO (small bowel obstruction) (CMS/HCC) Post-op Diagnosis SBO (small bowel obstruction) (CMS/HCC) Procedure(s): Exploratory laparotomy, lysis of adhesions >90 minutes Attending Surgeon(s): * Farnaz Brito - Primary Uke Driver(s): * Farnaz Trejo MD - Resident - Assisting * Gui Will MD - Resident - Assisting Anesthesia: General ASA: III Blood Administration: Blood Product Administration History None Estimated Blood Loss: Minimal Drains: NG/OG Forrest Sump Nasogastric 14 Fr Right nostril (Active) [...] below bladder and tubing free of kinks 10/22/24 1200 CAUTI: Securement Method Securing device (Describe) 10/22/24 1200 CAUTI: Specimen Collection Port Covered with Alcohol Cap Yes 10/22/24 1200 CAUTI: Urinary Catheter Necessity Yes, meets criteria 10/22/241199 CAUTI: Urinary Catheter Necessity Reasons Q1-2 hourly urine output of critically ill patient 10/22/24 1200 Output (mL) 40 mL 10/22/24 1200 Specimen: None Findings: Adhesions throughout the abdomen with dense adhesions of small bowel within the pelvis, transition point within the right pelvis. Indications: Roel Cervantes is an 69 y.o. female who is having surgery for SBO (small bowel obstruction) ([facility]). She has had multiple admissions for small [...] closed using interrupted 0 PDS sutures in pnwiwh-zk-fboal fashion. Soft tissue was irrigated and skin [...] 10/21/2024 2:11 PM EDT Date: 10/21/24 Location: [facility] Name: Roel Cervantes, : 1955, Diagnoses: Pre-op Diagnosis SBO (small bowel obstruction) (CMS/HCC) Post-op Diagnosis SBO (small bowel obstruction) (CMS/HCC) Procedure(s): Lysis of adhesions Attending Surgeon(s): * Farnaz Brito - Primary Uke Driver(s): * Gui Will MD - Resident - Assisting Anesthesia: General ASA: III Blood Administration: Blood Product Administration History None Estimated Blood Loss: Minimal Drains: NG/OG Forrest Sump Nasogastric 14 Fr Right nostril (Active) Placement Verification aspiration;auscultation;distal tube length 10/19/24 1202 Tube Placement Length Marking (cm) 70cm 10/19/24 1202 Site Assessment Clean;Dry;Intact 10/20/241914 Surrounding Skin Intact;Non reddened 10/20/241914 Secured Location Right Nostril 10/20/241914 NG/OG Status Clamped 10/20/242039 Drainage Appearance Bile 10/20/241914 NG/OG Interventions Low intermittant suction 10/20/24 2215 Output (mL) 800 mL 10/21/24 0506 Ileostomy RLQ (Active) Stomal Appliance 2 piece 10/21/24 1328 Site Assessment Bryce 10/21/24 1328 Peristomal Assessment Intact 10/21/24 1328 Ileostomy Stool Appearance Watery 10/21/248 Ileostomy Stool Color Green 10/21/24 1328 Urethral [...] from the original note were not included. 08134 Preventing a Surgical Site Infection A risk [...] of infection. ?? Controlled body temperature. A yczek-ebtd-vfmnbl temperature during or after surgery prevents oxygen [...] and water or with an alcohol-based hand range ecologist before and after caring for you. Don?t [...] away. Last Reviewed Date: 2024 00:00:00 ?? 1512-2742 [employer]. All rights reserved. This information is not intended as a substitute for professional medical care. Always follow your healthcare professional's instructions. * Sary OnFHIR - Linda Parham RN - 10/21/2024 9:51 AM EDT Images from the original note were not included. 30731 Colorectal Surgery: Recovering in the Hospital and [...] site. Last Reviewed Date: 2024 00:00:00 ?? 2924-6602 [employer]. All rights reserved. This information is not intended as a substitute for professional medical care. Always follow your healthcare professional's instructions. * Sary SheppardSIXTO - Linda Parham RN - 10/21/2024 9:51 AM EDT Images from the original note were not included. 78475 Understanding Lysis of Adhesions Lysis of adhesions is a surgery to cut bands of tissue that form between organs. These bands are called adhesions. They are often caused by scar tissue that formed after an earlier surgery. Adhesionscan connect organs to each other. How to say it LY-sihs uo-DRK-qfbgoa Why lysis of adhesions is done Adhesions [...] (rare). Last Reviewed Date: 2024 00:00:00 ?? 6194-9500 [employer]. All rights reserved. This information is not intended as a substitute for professional medical care. Always follow your healthcare professional's instructions. * Sary Epps - Linda Parham RN - 10/21/2024 9:51 AM EDT Images from the original note were not included. [id number] Abdominal Pain, Adhesions from Surgery Surgery on [...] period Last Reviewed Date: 2024 00:00:00 ?? 5947-0052 [employer]. All rights reserved. This information is not intended as a substitute for professional medical care. Always follow your healthcare professional's instructions. * Sary On[facility]IR - Linda Parham RN - 10/21/2024 9:51 AM EDT Images from the original note were not included. 37782 Small Bowel Obstruction A small bowel obstruction [...] stool). Last Reviewed Date: 2024 00:00:00 ?? 6388-0300 [employer]. All rights reserved. This information is not [...] - 10/20/2024 11:40 AM EDT 10/20/24 Roel Cervantes HPI 68 YO F with [...] Results from last 7 days Lab Units 10/18/24 2017 HEMOGLOBIN g/dL 12.6 HEMATOCRIT % 39.4 INR Cr Results from last 7 days Lab Units 10/20/24 0501 10/18/242016 CREATININE mg/dL 0.91 0.88 Medications reviewed. Vital signs reviewed. Labs reviewed. Radiography reviewed. 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 Serial abd exams Conservative management NGT cLWSx NPO HTN (hypertension) Overview Addendum 09/08/2024 9:51 AM by Estrellita Hennessy APRN Resume home carvedilol Mood disorder ([facility]/HCC) Overview Addendum 09/29/2024 11:28 AM by Estrellita Hennessy APRN Resume home meds Hypothyroidism Overview Addendum 09/08/2024 9:51 AM by Estrellita Hennessy APRN Resume home meds GERD (gastroesophageal reflux disease) Overview Addendum 09/08/2024 9:51 AM by Estrellita Hennessy APRN Resume PPI Pulmonary embolism, bilateral ([facility]/HCC) Degenerative disc disease, lumbar Emphysema/COPD ([facility]/HCC) Overview Addendum 09/29/2024 11:29 AM by Estrellita Hennessy APRN Pulm hygiene, IS, PEP Home inhalers Mild obstructive sleep apnea Anal cancer ([facility]/HCC) Astigmatism of both eyes with presbyopia Combined form of age-related cataract, both eyes Compression fracture Coronary artery calcification seen on CT scan Diastolic dysfunction Elevated left ventricular end-diastolic pressure (LVEDP) Almazan catheter problem ([facility]/HCC) HHD (hypertensive heart disease) Lumbar radiculopathy Vitamin D deficiency At high risk for falls Complication of implanted vaginal mesh, unspecified complication, subsequent encounter Ileostomy present ([facility]) Overview Signed 09/29/2024 11:30 AM by Estrellita [...] Note Roel Cervantes 68 y.o. female CSN: [id number] Admission: 10/18/2024 8:19 PM Primary Problem: SBO (small bowel obstruction) ([facility]) Per primary treatment team, patient is not medically ready to discharge today. NGT in place. GG challenge pending. CM continues to follow. Keren Bro RN * H&P - Kendall Schwab MD - 10/19/2024 12:38 AM EDTAssociated Order(s): Consult to Emergency General Surgery Images from the original note were not included. [facility] Department of Surgery Division of Acute Care / Emergency General Surgery History & Physical Note Reason for Consult: pSBO Requesting Service: Emergency Department Consult Date and Time: 10/19/2024 2341 Consult to Emergency General Surgery Consult performed by: Kendall Schwab MD Consult ordered by: Corby Ramos MD Subjective History of Present Illness: Chief Complaint: abd pain, N/V Roelharvey Cervantes [...] a day as needed for shortnessof breath. ProviderTiff MD alendronate (Fosamax) 70 MG tablet Take 1 tablet by mouth every 7 (seven) days. Take in the morningwith a full glass of water, on an empty stomach, and do not take anything else by mouth or lie downfor the next 30 min. ProviderTiff MD buPROPion (Wellbutrin) 75 MG tablet Take 2 tablets by mouth in the morning and 2 tablets before bedtime. 02/12/23 Tiff Kincaid MD ergocalciferol 1.25 MG (39536 UT) capsule Take 1 capsule by mouth [...] tablet Take 1-2 tablets by mouth nightly. Tiff Kincaid MD Anti-Thrombotic Medications: Is this patient taking warfarin, [...] Cellulitis 04/10/2023 COPD (chronic obstructive pulmonary disease) ([facility]/HCC) 06/25/2022 Encounter for assessment for small bowel obstruciton 10/17/2021 GERD (gastroesophageal reflux disease) 06/25/2022 Heart failure 06/25/2022 Hematoma 04/10/2023 Hemorrhage of anus and rectum Rectal bleeding HTN (hypertension) 06/25/2022 Hypomagnesemia 10/13/2021 - IV replacement started in ED. - Follow-up labs. Hypothyroidism 06/25/2022 Latent tuberculosis Latent tuberculosis Malignant neoplasm of anal canal (CMS/HCC) Squamous cell carcinoma of anal canal Malignant neoplasm of rectum ([facility]/HCC) Rectum cancer Numbness 04/10/2023 Obstipation 04/10/2023 Personal [...] Pleural effusion 04/10/2023 Recurrent UTI 04/10/2023 Sacroiliitis ([facility]) 04/10/2023 Sepsis ([facility]) 04/10/2023 Shoulder pain 04/10/2023 Sleep apnea, unspecified [...] HEMORRHOIDECTOMY BLADDER SURGERY N/A Bladder surgery from [facility] CARPAL TUNNEL RELEASE Bilateral CATARACT EXTRACTION Bilateral CHOLECYSTECTOMY COLON SURGERY total adominal colectomy COLONOSCOPY EMBOLECTOMY N/A Arterial Embolectomy By Femoral Incision from [facility] EXPLORATORY LAPAROTOMY W/ BOWEL RESECTION FOOT SURGERY HEMORRHOID SURGERY N/A Hemorrhoidectomy from [facility] HYSTERECTOMY N/A Hysterectomy from [facility] PERCUTANEOUS PORTAL VEIN CATHETER N/A Percutaneous Portal Vein Catheter Placement from [facility] RECTAL SURGERY MULTIPLE VAGINA SURGERY 10/17/2023 bladder [...] 2 tablets before bedtime. ergocalciferol 1.25 MG (45070 UT) capsule Take 1 capsule by mouth [...] at this time. History provided by: Patient doffer used: [facility]/Nigel Osborn MD: I assumed responsibility for full [...] baseline. Comments: Awake Psychiatric: Behavior: Behavior normal. Sarah Coma Scale Score: 15 ED Course & [...] solution 3 mL 3 mL Nebulization Given 10/18/2024 2245 EDT morphine PF 4 mg 4 mg Intravenous Given 10/18/2024 225 EDT iohexol (OMNIPaque) 300 MG/ML injection 100 [...] MARINELLI 10/18/241956 CMP STAT Final result MISHEL MARINELLI 10/18/241956 CBC STAT Final result MISHEL MARINELLI 10/18/241956 Lipase STAT Final result MISHEL MARINELLI 10/18/241956 Lactic acid, venous STAT Final result MISHEL MARINELLI ED Course as of 10/18/24 233 Tatiana Oct 18, 2024 233 Lipase: 20 [BR] 2336 Lactate: 1.0 Lowest concern for pancreatitis and bowel ischemia [BR] 2336 Troponin T, High Sensitivity, 0 Hour(!): 23 [BR] 2337 Troponin T, High Sensitivity, 2 Hour(!): 24 Non concerning for ACS [BR] 2336 CBC(!) No acutely actionable abnormalities and CBC or CMP [BR] 2337 CMP(!) [BR] 233 XR Chest 1 View Right lower lung opacification favors component of known Bochdalek hernia. Additional mild left basilar scarring and atelectasis without acute focal consolidation. No pneumothorax. No significant cardiomegaly. No acute osseous abnormality. [BR] 2337 CT Abdomen Pelvis w IV Contrast CT [...] Blood clot in vein Acute kidney injury ([facility]) 10/13/2021 - Likely from acute vomiting with onset of abdominal pain. - mIVF @ 75 mL/hr. YAJAIRA (acute kidney injury) ([facility]) 12/31/2021 IVF hydration, monitor Cr, avoid nephrotoxins Altered mental status 04/10/2023 Anemia 04/10/2023 Anxiety disorder, unspecified Anxiety Blood clot in vein BRBPR (bright red blood per rectum) 03/22/2014 Anal hemorrhage Carpal tunnel syndrome surgery both wrist Cellulitis 04/10/2023 COPD (chronic obstructive pulmonary disease) ([facility]) 06/25/2022 Encounter for assessment for small bowel [...] Pleural effusion 04/10/2023 Recurrent UTI 04/10/2023 Sacroiliitis (CMS/HCC) 04/10/2023 Sepsis (CMS/HCC) 04/10/2023 Shoulder pain 04/10/2023 Sleep apnea, unspecified Sleep disorder breathing SOB (shortness of breath) 04/10/2023 Urge incontinence 10/31/2020 Urinary retention 04/10/2023 Urinary tract infection in female 03/29/2023 Urinary tract infection with hematuria 03/29/2023 Wound of back 07/26/2017 [2] Past Surgical History: Procedure Laterality Date BAND HEMORRHOIDECTOMY BLADDER SURGERY N/A Bladder surgery from [facility] CARPAL TUNNEL RELEASE Bilateral CATARACT EXTRACTION Bilateral CHOLECYSTECTOMY COLON SURGERY total adominal colectomy COLONOSCOPY EMBOLECTOMY N/A Arterial Embolectomy By Femoral Incision from [facility] EXPLORATORY LAPAROTOMY W/ BOWEL RESECTION FOOT SURGERY HEMORRHOID SURGERY N/A Hemorrhoidectomy from [facility] HYSTERECTOMY N/A Hysterectomy from [facility] PERCUTANEOUS PORTAL VEIN CATHETER N/A Percutaneous Portal Vein Catheter Placement from [facility] RECTAL SURGERY MULTIPLE VAGINA SURGERY 10/17/2023 bladder [...] field nausea Nigel Osborn MD Resident 10/18/24 3530 Cosigned by Margarito Sue MD at 10/19/2024 [...] of 10/19/24 0611 Sun Oct 18, 2024 233 Lipase: 20 [BR] 2337 Lactate: 1.0 Lowest [...] Description 12/03/2024 9:30 AM EDT Office Visit [facility] General Surgery [address] [place] [address] Diogenes Al MD [address] [facility] [address] [place] [address] documented as of this encounter Procedures Procedure [...] 1:22 PM EDT SBO (small bowel obstruction) (CMS/[facility]) TYPE AND SCREEN Routine 10/21/2024 1:16 PM [...] - 4.5 mg/dL 10/26/2024 12:02 PM EDT [facility] Blood Venous blood specimen / Unknown Venipuncture / Unknown 10/26/2024 11:09 AM EDT 10/26/2024 11:18 AM EDT Yuki Shankar APRN LAB BLOOD ORDERABLES Final Re sult Performing Organization Address [facility]/ZIP Co de Phone Number [facility] [address] [place] [address] * (ABNORMAL) Magnesium (10/26/2024 11:09 AM EDT) Magnesium, Plasma 1.7(L) 1.9 - 2.4 mg/dL 10/26/2024 12:02 PM EDT [facility] Blood Venous blood specimen / Unknown Venipuncture / Unknown 10/26/2024 11:09 AM EDT 10/26/2024 11:18 AM EDT Yuki Shankar APRN LAB BLOOD ORDERABLES Final Re sult Performing Organization Address [facility] Co de Phone Number [facility] [address] [place] [address] * (ABNORMAL) Basic metabolic panel (10/26/2024 11:09 AM EDT) Glucose, Plasma 113(H) 74 - 99 mg/dL 10/26/2024 12:02 PM EDT [facility] BUN, Plasma 9 8 - 23 mg/dL 10/26/2024 12:02 PM EDT [facility] Creatinine, Plasma 0.74 0.60 - 1.10 mg/dL 10/26/2024 12:02 PM EDT [facility] BUN/Creatinine Ratio 12 10/26/2024 12:02 PM EDT [facility] Sodium, Plasma 136 136 - 145 mmol/L 10/26/2024 12:02 PM EDT [facility] Potassium, Plasma 3.8 3.6 - 4.9 mmol/L 10/26/2024 12:02 PM EDT [facility] Chloride, Plasma 101 97 - 107 mmol/L 10/26/2024 12:02 PM EDT [facility] CO2, Plasma 25 22 - 29 mmol/L 10/26/2024 12:02 PM EDT [facility] [facility] Anion Gap 10 6 - 16 mmol/L 10/26/2024 12:02 PM EDT [facility] Total Calcium, Plasma 8.2(L) 8.9 - 10.2 mg/dL 10/26/2024 12:02 PM EDT [facility] eGFRcr 88.8 mL/min/1.7 3m*2 10/26/2024 12:02 PM EDT [facility] Comment:Reported eGFRcr in m L/min/1.73m2 is based the CKD-EPI 2020 equation that does not use a race coefficient. Blood Venous blood specimen / Unknown Venipuncture / Unknown 10/26/2024 11:09 AM EDT 10/26/2024 11:18 AM EDT us Yuki Shankar APRN LAB BLOOD ORDERABLES Final Re sult [facility] [address] [place] [address] * Lavender Top (10/25/2024 1:08 PM EDT) Extra Hold for add-ons 10/25/2024 4:02 PM EDT [facility] Comment:Auto resulted. Blood Venous blood specimen / Unknown 10/25/2024 1:08 PM EDT 10/25/2024 2:00 PM EDT Farnaz Brito MD LAB BLOOD ORDERABLES Yvonne l Result [facility] [address] [place] [address] * (ABNORMAL) Phosphorus (10/25/2024 1:08 PM EDT) Phosphorus, Plasma 1.5(L) 2.5 - 4.5 mg/dL 10/25/2024 1:46 PM EDT [facility] Blood Venous blood specimen / Unknown Venipuncture / Unknown 10/25/2024 1:08 PM EDT 10/25/2024 1:19 PM EDT Farnaz Brito MD LAB BLOOD ORDERABLES Yvonne l Result [facility] [address] [place] [address] * Potassium (10/25/2024 1:08 PM EDT) Potassium, Plasma 4.0 3.6 - 4.9 mmol/L 10/25/2024 1:46 PM EDT [facility] Blood Venous blood specimen / Unknown Venipuncture / Unknown 10/25/2024 1:08 PM EDT 10/25/2024 1:19 PM EDT Farnaz Brito MD LAB BLOOD ORDERABLES Yvonne l Result Performing Organization Address City/[facility]/[place] [address] * (ABNORMAL) Phosphorus (10/25/2024 11:16 AM EDT) Phosphorus, Plasma 1.6(L) 2.5 - 4.5 mg/dL 10/25/2024 12:11 PM EDT [facility] Blood Venous blood specimen / Unknown Venipuncture / Unknown 10/25/2024 11:16 AM EDT 10/25/2024 11:23 AM EDT Farnaz Brito MD LAB BLOOD ORDERABLES Yvonne l Result [facility] [address] [place] [address] * (ABNORMAL) Magnesium (10/25/2024 11:16 AM EDT) Magnesium, Plasma 1.7(L) 1.9 - 2.4 mg/dL 10/25/2024 12:11 PM EDT [facility] Blood Venous blood specimen / Unknown Venipuncture / Unknown 10/25/2024 11:16 AM EDT 10/25/2024 11:23 AM EDT us Farnaz Brito MD LAB BLOOD ORDERABLES Yvonne dukes Result [facility] [address] [place] [address] * (ABNORMAL) Basic metabolic panel (10/25/2024 11:16 AM EDT) Glucose, Plasma 112(H) 74 - 99 mg/dL 10/25/2024 12:11 PM EDT [facility] BUN, Plasma 10 8 - 23 mg/dL 10/25/2024 12:11 PM EDT [facility] Creatinine, Plasma 0.68 0.60 - 1.10 mg/dL 10/25/2024 12:11 PM EDT [facility] BUN/Creatinine Ratio 15 10/25/2024 12:11 PM EDT [facility] Sodium, Plasma 136 136 - 145 mmol/L 10/25/2024 12:11 PM EDT [facility] Potassium, Plasma 4.8 3.6 - 4.9 mmol/L 10/25/2024 12:11 PM EDT [facility] Comment:Hemolyzed, result ma y be falsely increased. Chloride, Plasma 105 97 - 107 mmol/L 10/25/2024 12:11 PM EDT [facility] CO2, Plasma 21(L) 22 - 29 mmol/L 10/25/2024 12:11 PM EDT [facility] Anion Gap 10 6 - 16 mmol/L 10/25/2024 12:11 PM EDT [facility] Total Calcium, Plasma 8.3(L) 8.9 - 10.2 mg/dL 10/25/2024 12:11 PM EDT [facility] eGFRcr 95.6 mL/min/1.7 3m*2 10/25/2024 12:11 PM EDT [facility] Comment:Reported eGFRcr in m L/min/1.73m2 is based the CKD-EPI 2020 equation that does not use a race coefficient. Blood Venous blood specimen / Unknown Venipuncture / Unknown 10/25/2024 11:16 AM EDT 10/25/2024 11:23 AM EDT Farnaz Brito MD LAB BLOOD ORDERABLES Yvonne l Result [facility] [address] [place] [address] * PERIPHERAL IV (SMARTFORM LINK) (10/23/2024 10:25 [...] CBC W/O Differential (2024 12:12 AM EDT) [facility] WBC Count 7.15 3.70 - 10.30 10*3/uL LAB HEMATOLOGY METHOD 2024 12:24 AM EDT [facility] RBC Count 4.27 3.90 - 5.20 10*6/uL LAB HEMATOLOGY METHOD 2024 12:24 AM EDT [facility] HGB 11.7 11.2 - 15.7 g/dL LAB HEMATOLOGY METHOD 2024 12:24 AM EDT [facility] HCT 38.6 34.0 - 45.0 % LAB HEMATOLOGY METHOD 2024 12:24 AM EDT [facility] Platelet Count 207 155 - 369 10*3/uL LAB HEMATOLOGY METHOD 2024 12:24 AM EDT [facility] MCV 90 79 - 98 fL LAB HEMATOLOGY METHOD 2024 12:24 AM EDT [facility] MCH 27.4 26.0 - 32.0 pg LAB HEMATOLOGY METHOD 2024 12:24 AM EDT [facility] MCHC 30.3(L) 30.7 - 35.5 g/dL LAB HEMATOLOGY METHOD 2024 12:24 AM EDT [facility] RDW 15.8(H) 11.5 - 14.5 % LAB HEMATOLOGY METHOD 2024 12:24 AM EDT [facility] MPV 11.2 8.8 - 12.5 fL LAB HEMATOLOGY METHOD 2024 12:24 AM EDT [facility] nRBC 0.0 <=0.0 per 100 WBCs LAB HEMATOLOGY METHOD 2024 12:24 AM EDT [facility] Blood Venous blood specimen / Unknown Venipuncture / Unknown 2024 12:12 AM EDT 2024 12:17 AM EDT us Rebecca Cadena CAMPUS DIRECTOR LAB BLOOD ORDERABLES Yvonne l Result [facility] [address] [place] [address] * (ABNORMAL) Basic Metabolic Panel, Plasma (2024 12:12 AM EDT) Glucose, Plasma 115(H) 74 - 99 mg/dL 2024 12:48 AM EDT [facility] BUN, Plasma 10 8 - 23 mg/dL 2024 12:48 AM EDT [facility] Creatinine, Plasma 0.77 0.60 - 1.10 mg/dL 2024 12:48 AM EDT [facility] BUN/Creatinine Ratio 13 2024 12:48 AM EDT [facility] Sodium, Plasma 139 136 - 145 mmol/L 2024 12:48 AM EDT [facility] Potassium, Plasma 2.9(L) 3.6 - 4.9 mmol/L 2024 12:48 AM EDT [facility] Chloride, Plasma 102 97 - 107 mmol/L 2024 12:48 AM EDT [facility] CO2, Plasma 28 22 - 29 mmol/L 2024 12:48 AM EDT [facility] Anion Gap 9 6 - 16 mmol/L 2024 12:48 AM EDT [facility] Total Calcium, Plasma 7.9(L) 8.9 - 10.2 mg/dL 2024 12:48 AM EDT [facility] eGFRcr 84.7 mL/min/1.7 3m*2 2024 12:48 AM EDT [facility] Comment:Reported eGFRcr in m L/min/1.73m2 is based the CKD-EPI 2020 equation that does not use a race coefficient. Blood Venous blood specimen / Unknown Venipuncture / Unknown 2024 12:12 AM EDT 2024 12:17 AM EDT us Rebecca Cadena APRN LAB BLOOD ORDERABLES Yvonne l Result Performing Organization Address City/[facility]/ZIP Co de Phone Number [facility] [address] [place] [address] * (ABNORMAL) Magnesium, Plasma (2024 12:12 AM EDT) Magnesium, Plasma 1.5(L) 1.9 - 2.4 mg/dL 2024 12:48 AM EDT [facility] Blood Venous blood specimen / Unknown Venipuncture / Unknown 2024 12:12 AM EDT 2024 12:17 AM EDT us Rebecca Cadena CAMPUS DIRECTOR LAB BLOOD ORDERABLES Yvonne l Result [facility] [address] [place] [address] * Phosphorus, Plasma (2024 12:12 AM EDT) Phosphorus, Plasma 3.3 2.5 - 4.5 mg/dL 2024 12:48 AM EDT [facility] Blood Venous blood specimen / Unknown Venipuncture / Unknown 2024 12:12 AM EDT 2024 12:17 AM EDT us Rebecca Cadena CAMPUS DIRECTOR LAB BLOOD ORDERABLES Yvonne l Result Performing Organization Address City/[facility]/[place] [address] * Type and Screen (10/21/2024 1:16 PM EDT) ABO/Rh O Positive 10/21/2024 12:32 PM EDT BLO[facility] BANK Antibody Screen Negative 10/21/2024 12:32 PM EDT [facility]LO[facility] Specimen Expiration 10/24/2024 23:59 10/21/2024 12:32 PM EDT [facility] Blood Venous blood specimen / Unknown Venipuncture / Unknown 10/21/2024 1:16 PM EDT 10/21/2024 2:10 PM EDT us Precious Alonzo MD LAB BLOOD BANK TEST ORDERABLE S Final Result Performing Organization Address [facility] Co de Phone Number BLOOD BANK [address] [place] [address] * PERIPHERAL IV (SMARTFORM LINK) (10/21/2024 8:18 [...] Transparent semipermeable dressing Education provided to: Patient us Farnaz Brito MD IV THERAPY ORDERABLES Fin al Result * POCT glucose meter (10/21/2024 5:58 AM EDT) [facility] POCT Glucose 90 74 - 99 mg/dL [...] for testing. Comment 10/21/2024 6:00 AM EDT [facility] Crystallography Teacher ID Cheng Downing 6:00 AM EDT [facility] Device ID [id number] 10/21/2024 6:00 AM EDT [facility] Specimen Type POC Capillary 10/21/2024 6:00 AM EDT [facility] Blood Capillary blood specimen / Unknown 10/21/2024 5:58 AM EDT 10/21/2024 6:00 AM EDT Farnaz Brito MD LAB POINT OF CARE TEST DOCKED DEVICE UNSOLICITED RESULTS Final Result [facility] [address] [place] [address] * (ABNORMAL) POCT glucose meter (10/21/2024 12:53 AM EDT) Pathologist [facility] POCT Glucose 116(H) 74 - 99 mg/dL [...] Comment 10/21/2024 12:54 AM EDT [facility] Crystallography Teacher ID Pratima Ventura 10/21/2024 12:54 AM EDT [facility] Device ID [id number] 10/21/2024 12:54 AM EDT [facility] Specimen Type POC Capillary 10/21/2024 12:54 AM EDT [facility] Blood Capillary blood specimen / Unknown 10/21/2024 12:53 AM EDT 10/21/2024 12:54 AM EDT us Farnaz Brito MD LAB POINT OF CARE TEST DOCKED DEVICE UNSOLICITED RESULTS Final Result Performing Organization Address City/[facility]/ZIP Co de Phone Number [facility] [address] [place] [address] * POCT glucose meter (10/21/2024 12:02 AM [...] Comment 10/21/2024 12:03 AM EDT [facility] Crystallography Teacher ID Pratima Ventura 10/21/2024 12:03 AM EDT [facility] Device ID [id number] 10/21/2024 12:03 AM EDT [facility] Specimen Type POC Capillary 10/21/2024 12:03 AM EDT [facility] Blood Capillary blood specimen / Unknown 10/21/2024 12:02 AM EDT 10/21/2024 12:03 AM EDT us Farnaz Brito MD LAB POINT OF CARE TEST DOCKED DEVICE UNSOLICITED RESULTS Final Result [facility] [address] [place] [address] * (ABNORMAL) POCT glucose meter (10/20/2024 4:21 PM EDT) [facility] POCT Glucose 151(H) 74 - 99 mg/dL 10/20/2024 4:22 PM EDT [facility] Comment:Accuracy of [...] Comment 10/20/2024 4:22 PM EDT [facility] Crystallography Teacher ID VerasAlvin 4:22 PM EDT [facility] Device ID [id number] 10/20/2024 4:22 PM EDT [facility] Specimen Type POC Capillary 10/20/2024 4:22 PM EDT [facility] Blood Capillary blood specimen / Unknown 10/20/2024 4:21 PM EDT 10/20/2024 4:22 PM EDT Farnaz Brito MD LAB POINT OF CARE TEST DOCKED DEVICE UNSOLICITED RESULTS Final Result Performing Organization Address [facility] de Phone Number [facility] [address] [place] [address] * (ABNORMAL) POCT glucose meter (10/20/2024 3:38 [...] 10/20/2024 3:40 PM EDT [facility] Crystallography Teacher ID VerasAlvin 3:40 PM EDT [facility] Device ID [id number] 10/20/2024 3:40 PM EDT [facility] Specimen Type POC Capillary 10/20/2024 3:40 PM EDT [facility] Blood Capillary blood specimen / Unknown 10/20/2024 3:38 PM EDT 10/20/2024 3:40 PM EDT Farnaz Brito MD LAB POINT OF CARE TEST DOCKED DEVICE UNSOLICITED RESULTS Final Result [facility] [address] [place] [id number] * XR Gastrograffin Challenge (10/20/2024 8:53 AM [...] signing this report, I, the attending physician, ericat I have personally reviewed the images/data for the aboveexamination(s) and agree with the final edited report. Drafted by Moreno Rodriguez MD on 10/20/2024 9:13 AM Final report signed by López Dick MD on 10/20/2024 9:32 AM Farnaz Brito MD IMG XR PROCEDURES Final R esult * Phosphorus (10/20/2024 5:01 AM EDT) Phosphorus, Plasma 3.7 2.5 - 4.5 mg/dL 10/20/2024 5:40 AM EDT [facility] Blood Venous blood specimen / Unknown Venipuncture / Unknown 10/20/2024 5:01 AM EDT 10/20/2024 5:10 AM EDT Farnaz Brito MD LAB BLOOD ORDERABLES Yvonne l Result Performing Organization Address City/[facility]/ZIP Co de Phone Number [facility] [address] [place] [address] * (ABNORMAL) Magnesium (10/20/2024 5:01 AM EDT) Magnesium, Plasma 1.2(L) 1.9 - 2.4 mg/dL 10/20/2024 5:40 AM EDT [facility] Blood Venous blood specimen / Unknown Venipuncture / Unknown 10/20/2024 5:01 AM EDT 10/20/2024 5:10 AM EDT Farnaz Brito MD LAB BLOOD ORDERABLES Yvonne l Result Performing Organization Address City/[facility]/ZIP Co de Phone Number [facility] [address] [place] [address] * (ABNORMAL) Basic metabolic panel (10/20/2024 5:01 AM EDT) Glucose, Plasma 107(H) 74 - 99 mg/dL 10/20/2024 5:40 AM EDT [facility] BUN, Plasma 13 8 - 23 mg/dL 10/20/2024 5:40 AM EDT [facility] Creatinine, Plasma 0.91 0.60 - 1.10 mg/dL 10/20/2024 5:40 AM EDT [facility] BUN/Creatinine Ratio 14 10/20/2024 5:40 AM EDT [facility] Sodium, Plasma 145 136 - 145 mmol/L 10/20/2024 5:40 AM EDT [facility] Potassium, Plasma 3.6 3.6 - 4.9 mmol/L 10/20/2024 5:40 AM EDT [facility] Chloride, Plasma 105 97 - 107 mmol/L 10/20/2024 5:40 AM EDT [facility] CO2, Plasma 31(H) 22 - 29 mmol/L 10/20/2024 5:40 AM EDT [facility] Anion Gap 9 6 - 16 mmol/L 10/20/2024 5:40 AM EDT [facility] Total Calcium, Plasma 8.8(L) 8.9 - 10.2 mg/dL 10/20/2024 5:40 AM EDT [facility] eGFRcr 69.7 mL/min/1.7 3m*2 10/20/2024 5:40 AM EDT [facility] Comment:Reported eGFRcr in m L/min/1.73m2 is based the CKD-EPI 2020 equation that does not use a race coefficient. Blood Venous blood specimen / Unknown Venipuncture / Unknown 10/20/2024 5:01 AM EDT 10/20/2024 5:10 AM EDT us Farnaz Brito MD LAB BLOOD ORDERABLES Yvonne l Result [facility] [address] [place] [address] * PERIPHERAL IV (SMARTFORM LINK) (10/20/2024 3:07 AM EDT) Narrative Nikky Carl RN - 10/20/2024 3:07 AM EDT Nikky [...] No. COMMUNICATION: Per this written report. An [employer] secured message was sent to the responding [...] No. COMMUNICATION: Per this written report. An [employer] secured message was sent to the responding [...] discussed via secure chat with MISHEL MARINELLI on10/18/2024 11:21 PM by Salinas Ricci with acknowledgment [...] Marroquin MD on 10/18/2024 11:40 PM us Mishel Marinelli DO IMG CT PROCEDURES Final Resul t * (ABNORMAL) Troponin T, High Sensitivity, 2 Hour, Plasma (10/18/2024 10:45 PM EDT) Troponin T, High Sensitivity, 2 Hour 24(H) <14 ng/L 10/18/2024 11:10 PM EDT [facility] Troponin Delta 1 <10 ng/L 10/18/2024 11:10 PM EDT [facility] Troponin Delta Interpretation Not Significant 10/18/2024 11:10 PM EDT [facility] Comment:Not Significant. No acute change in troponin observed between the baseline and 2 hour samples. Blood Venous blood specimen / Unknown Venipuncture / Unknown 10/18/2024 10:45 PM EDT 10/18/2024 10:46 PM EDT Mishel Marinelli DO LAB BLOOD ORDERABLES Final Re sult [facility] [address] [place] [address] * EKG now - STAT (adult) (10/18/2024 8:34 PM EDT) EKG DIAGNOSIS CLASS Abnormal MUSE ECG Ventricular Rate 93 BPM MUSE ECG Atrial Rate 93 BPM MUSE ECG WA Interval 150 ms MUSE ECG QRSD Interval 70 ms MUSE ECG QT Interval 352 ms MUSE ECG QTC Interval 437 ms MUSE ECG P [place] 82 degrees MUSE ECG R [place] 12 degrees MUSE ECG T Wave [place] 60 degrees MUSE ECG Diagnosis Normal sinus rhythm MUSE ECG Diagnosis Low voltage QRS MUSE ECG Diagnosis Cannot rule out Anterior infarct , age undetermined MUSE ECG Diagnosis Abnormal ECG MUSE ECG Diagnosis MUSE ECG Diagnosis Confirmed by Grzegorz Butcher ([id number]) on 10/19/2024 12:57:13 PM MUSE ECG 10/18/2024 [...] Giorgio Cook MD on 10/18/2024 9:07 PM Mishel Marinelli IMG XR PROCEDURES Final Resul t * (ABNORMAL) Troponin now and 120 min (10/18/2024 8:17 PM EDT) Troponin T, High Sensitivity, 0 Hour 23(H) <14 ng/L 10/18/2024 8:51 PM EDT [facility] Blood Venous blood specimen / Unknown Venipuncture / Unknown 10/18/2024 8:17 PM EDT 10/18/2024 8:22 PM EDT Mishel Lisy [employer] LAB BLOOD ORDERABLES Final Re sult Performing Organization Address City/[facility]/ZIP Co de Phone Number [facility] [address] [place] [address] * Lactic acid, venous (10/18/2024 8:17 PM EDT) [facility] Lactate, Venous, Whole Blood 1.0 0.5 - 2.2 mmol/L LAB HEMATOLOGY METHOD 10/18/2024 8:29 PM EDT [facility] Blood Venous blood specimen / Unknown Venipuncture / Unknown 10/18/2024 8:17 PM EDT 10/18/2024 8:26 PM EDT [email or web address] LAB BLOOD ORDERABLES Final Re sult [facility] [address] [place] [address] * Lipase (10/18/2024 8:17 PM EDT) Lipase, Plasma 20 19 - 63 U/L 10/18/2024 8:51 PM EDT [facility] Blood Venous blood specimen / Unknown Venipuncture / Unknown 10/18/2024 8:17 PM EDT 10/18/2024 8:22 PM EDT us Mishel Lisy Marinelli DO LAB BLOOD ORDERABLES Final Re sult [facility] [address] [place] [address] * (ABNORMAL) CBC (10/18/2024 8:17 PM EDT) WBC Count 8.05 3.70 - 10.30 10*3/uL LAB HEMATOLOGY METHOD 10/18/2024 8:29 PM EDT [facility] RBC Count 4.49 3.90 - 5.20 10*6/uL LAB HEMATOLOGY METHOD 10/18/2024 8:29 PM EDT [facility] HGB 12.6 11.2 - 15.7 g/dL LAB HEMATOLOGY METHOD 10/18/2024 8:29 PM EDT [facility] HCT 39.4 34.0 - 45.0 % LAB HEMATOLOGY METHOD 10/18/2024 8:29 PM EDT [facility] Platelet Count 216 155 - 369 10*3/uL LAB HEMATOLOGY METHOD 10/18/2024 8:29 PM EDT [facility] MCV 88 79 - 98 fL LAB HEMATOLOGY METHOD 10/18/2024 8:29 PM EDT [facility] MCH 28.1 26.0 - 32.0 pg LAB HEMATOLOGY METHOD 10/18/2024 8:29 PM EDT [facility] MCHC 32.0 30.7 - 35.5 g/dL LAB HEMATOLOGY METHOD 10/18/2024 8:29 PM EDT [facility] RDW 16.4(H) 11.5 - 14.5 % LAB HEMATOLOGY METHOD 10/18/2024 8:29 PM EDT [facility] MPV 11.0 8.8 - 12.5 fL LAB HEMATOLOGY METHOD 10/18/2024 8:29 PM EDT [facility] nRBC 0.0 <=0.0 per 100 WBCs LAB HEMATOLOGY METHOD 10/18/2024 8:29 PM EDT [facility] Blood Venous blood specimen / Unknown Venipuncture / Unknown 10/18/2024 8:17 PM EDT 10/18/2024 8:22 PM EDT us Mishel L Taqueria DO LAB BLOOD ORDERABLES Final Re sult [facility] [address] [place] [address] * (ABNORMAL) CMP (10/18/2024 8:17 PM EDT) Glucose, Plasma 112(H) 74 - 99 mg/dL 10/18/2024 8:51 PM EDT [facility] BUN, Plasma 9 8 - 23 mg/dL 10/18/2024 8:51 PM EDT [facility] Creatinine, Plasma 0.88 0.60 - 1.10 mg/dL 10/18/2024 8:51 PM EDT [facility] BUN/Creatinine Ratio 10 10/18/2024 8:51 PM EDT [facility] Sodium, Plasma 141 136 - 145 mmol/L 10/18/2024 8:51 PM EDT [facility] Potassium, Plasma 4.1 3.6 - 4.9 mmol/L 10/18/2024 8:51 PM EDT [facility] Chloride, Plasma 104 97 - 107 mmol/L 10/18/2024 8:51 PM EDT [facility] CO2, Plasma 21(L) 22 - 29 mmol/L 10/18/2024 8:51 PM EDT [facility] Anion Gap 16 6 - 16 mmol/L 10/18/2024 8:51 PM EDT [facility] Total Calcium, Plasma 9.3 8.9 - 10.2 mg/dL 10/18/2024 8:51 PM EDT [facility] Total Protein 7.4 6.3 - 7.9 g/dL 10/18/2024 8:51 PM EDT [facility] Albumin, Plasma 3.4(L) 3.5 - 5.2 g/dL 10/18/2024 8:51 PM EDT [facility] AST, Plasma 22 10 - 35 U/L 10/18/2024 8:51 PM EDT [facility] Comment:Hemolyzed, result ma y be falsely increased. ALT, Plasma 11 10 - 35 U/L 10/18/2024 8:51 PM EDT [facility] Alkaline Phosphatase, Plasma 82 46 - 142 U/L 10/18/2024 8:51 PM EDT [facility] Total Bilirubin, Plasma 0.3 0.2 - 1.1 mg/dL 10/18/2024 8:51 PM EDT [facility] eGFRcr 72.6 mL/min/1.7 3m*2 10/18/2024 8:51 PM EDT [facility] Comment:Reported eGFRcr in m L/min/1.73m2 is based the CKD-EPI 2020 equation that does not use a race coefficient. Blood Venous blood specimen / Unknown Venipuncture / Unknown 10/18/2024 8:17 PM EDT 10/18/2024 8:22 PM EDT us Mishel Marinelli DO LAB BLOOD ORDERABLES Final Re sult [facility] [address] [place] [address] documented in this encounter Visit Diagnoses Diagnosis SBO (small bowel obstruction) (CMS/HCC)- Primary Unspecified intestinal obstruction SBO (small bowel obstruction) (CMS/HCC) Unspecified intestinal obstruction SBO (small bowel obstruction) (CMS/HCC) Unspecified intestinal obstruction documented in this encounter Administered Medications Inactive [...] 10/25/2024 9:39 AM EDT 3.125 mg dextrose 50 % solution 12.5 g 12.5 [...] Le ft Upper Arm (Back) gabapentin (Neurontin) capsule 100 mg 100 mg, [...] sugar per Hypoglycemia Prevention and Treatment protocol loperamide (Imodium A-D) tablet 2 mg 2 mg, Oral, 4 times daily PRN, Starting on Sat10/26/24 at 0837, Until Sat10/26/24 at 1519, Routine, diarrhea magnesium oxide (Mag-Ox) tablet 400 mg 400 mg, Oral, Daily, 3 doses, First dose on Sat10/26/24 at 1100, Last dose on Sat10/28/24 at 0900, Routine Given 10/26/2024 11:22 AM EDT 400 mg methocarbamol (Robaxin) tablet 750 mg 750 [...] Given 10/25/2024 9:39 AM EDT 2 puffs ondansetron (Zofran) injection 4 mg 4 mg, [...] Until 10/26/24 at 1519, Routine, moderate pain pantoprazole (Protonix) EC tablet 40 mg 40 mg, Oral, Daily, First dose on Sat10/25/24 at 0900, Until Discontinued, Routine Given 10/26/2024 8:33 AM EDT 40 mg Given 10/25/2024 9:39 AM EDT 40 mg phosphorus (K Phos Neutral) tablet 1 tablet 1 tablet (250 mg), Oral, 2 times daily, 6 doses, First dose on Sat10/26/24 at 1100, Last dose on Sat10/28/24 at 2100, Routine Given 10/26/2024 11:22 AM EDT 1 tablet prochlorperazine (Compazine) injection 2.5 mg 2.5 mg, Intravenous, Every 6 hours PRN, Starting on 10/24/24 at 1846, Until Sat10/26/24 at 1519, Routine, nausea, vomiting Given 10/24/2024 8:13 PM EDT 2. 5 mg rOPINIRole (Requip) tablet 0.5 mg 0.5 mg, Nasogastric, Nightly, First dose (after last modification) on [place] 10/22/24 at 2100, Until Discontinued, Routine Given 10/25/2024 8:22 PM EDT 0.5 mg Given 10/24/2024 8:12 PM EDT 0.5 mg Given 10/23/2024 8:21 PM EDT 0.5 mg rosuvastatin (Crestor) tablet 20 mg 20 mg, Oral, Nightly, First dose on Sat10/26/24 at 2100, Until Discontinued, Routine Tiotropium [place] Monohydrate (Spiriva Respimat) 2.5 MCG/ACT inhaler 2 [...] Hill) 0642 (Not Given - Provider: Madisyn Hill - Reason: Patient/family refused)1313 (Given - Provider: Genoveva Caraballo)1751 (Given - Provider: Genoveva Caraballo)2343 (Given - Provider: Opal Kumar, STEFFI) 0618 (Given - Provider: Opal Kumar RN)1158 [...] Provider: Genoveva Caraballo)2020 (Given - Provider: Opal Kumar, STEFFI) 0833 (Given - Provider: Mikey Holt, RN) carvedilol (Coreg) tablet 3.125 mg 3.125 mg, Nasogastric, 2 times daily, First dose on Sat10/19/24 at 0900, Until Discontinued, Routine 0818 (Not Given - Provider: Genoveva Caraballo - Reason: Patient/family refused)2011 (Given - Provider: Madisyn Hill) 09 (Given - Provider: Genoveva Caraballo)2020 (Given - Provider: Opal Kumar, RN) 0833 (Given - Provider: Mikey Holt, RN) enoxaparin (Lovenox) syringe 40 mg 40 mg, Subcutaneous, Daily, First dose on Sat10/19/24 at 0900, Until Discontinued, Routine 0818 (Given - Provider: Genoveva Caraballo) 09 (Given - Provider: Genoveva Caraballo) 0833 (Given - Provider: Mikey Holt, RN) gabapentin (Neurontin) capsule 100 mg 100 mg, Nasogastric, 2 times daily, First dose on Cherri 10/22/24 at 2100, Until Discontinued, Routine 0818 (Given - Provider: Genoveva Caraballo)2011 (Given - Provider: Madisyn Hill) 938 (Given - Provider: Genoveva Caraballo)2021 (Given - Provider: Opal Kumar, STEFFI) 0833 (Given - Provider: Mikey Holt, RN) magnesium oxide (Mag-Ox) tablet 400 mg 400 mg, Oral, Daily, 3 doses, First dose on Sat10/26/24 at 1100, Last dose on Sat10/28/24 at 0900, Routine 1122 (Given - Provid er: Mikey Holt, RN) magnesium sulfate IVPB 2 g (COMPLETED) 2 g, Intravenous, Once, 1 dose, On 10/24/24 at 1130, at 25 mL/hr, Administer over 2 Hours, Routine 1217 (New Bag - Provider: Genoveva Caraballo) magnesium sulfate IVPB 2 g (COMPLETED) 2 g, Intravenous, Once, 1 dose, On 10/25/24 at 1315, Routine 1345 (New Bag - [...] Provider: Genoveva Caraballo)2225 (Given - Provider: Opal Kumar, STEFFI) 0833 (Given - Provider: Mikey Holt, STEFFI)1400 [...] 0833 (Given - Provider: Mikey Holt, STEFFI) oxyCODONE (Roxicodone) immediate release tablet 5 mg (COMPLETED) 5 mg, Oral, Once, 1 dose, On 10/25/24 at 0015, Routine 2352 (Given - Provider: Madisyn Hill) pantoprazole (Protonix) EC tablet 40 mg 40 mg, Oral, Daily, First dose on 10/25/24 at 0900, Until Discontinued, Routine 0939 (Given - Provider: Genoveva Caraballo) 0833 (Given - Provider: Mikey Holt, STEFFI) pantoprazole (Protonix) injection 40 mg (CANCELED) 40 mg, Intravenous, Daily, First dose on Sat10/19/24 at 0900, Until Discontinued, Routine 0818 (Given - Provider: Genoveva Caraballo) phosphorus (K [...] 1715, Routine 1326 (Given - Provider: Genoveva Caraabllo)171 (Given - Provider: Genoveva Caraballo) rOPINIRole (Requip) tablet 0.5 mg 0.5 mg, Nasogastric, Nightly, First dose (after last modification) on Cherri 10/22/24 at 2100, Until Discontinued, Routine 2011 (Given - Provider: Madisyn Hill) 2021 (Given - Provider: Opal Kumar, STEFFI) rosuvastatin (Crestor) tablet 20 mg 20 mg, Oral, Nightly, First dose on 10/26/24 at 2100, Until Discontinued, Routine sodium phosphates 30 mmol in sodium chloride 0.9 % 500 mL IVPB (COMPLETED) 30 mmol, Intravenous, Once, 1 dose, On 10/25/24 at 1315, Routine 1401 (New Bag - Provider: Genoveva Caraballo) Tiotropium [place] Monohydrate (Spiriva Respimat) 2.5 MCG/ACT inhaler 2 puff 2 puff, Inhalation, Daily, First dose on 10/19/24 at 0900, Until Discontinued, Routine 0825 (Not Given - Provider: Genoveva Caraballo - Reason: Patient/family refused) 0942 (Not Given - Provider: Genoveva Caraballo - Reason: Patient/family refused) 0833 (Given - Provider: Mikey Holt, STEFFI) traZODone (Desyrel) tablet 50 mg 50 mg, Oral, Nightly, First dose on 10/25/24 at 2230, Until Discontinued, Routine 2224 (Given - Provider: Opal Kumar, STEFFI) PRN Medication Order 10/24/2024 10/25/2024 10/26/2024 calcium carbonate (Tums) chewable tablet 500 mg 500 mg, Oral, 4 times daily PRN, Starting on Sat10/23/24 at 0511, Until 10/26/24 at 1519, Routine, indigestion, heartburn dextrose 50 [...] moderate pain 0101 (Given - Provider: Concepcion Mcdowell, RN)0449 (Given - Provider: Concepcion Mcdowell, RN) loperamide (Imodium A-D) tablet 2 mg 2 mg, Oral, 4 times daily PRN, Starting on Sat10/26/24 at 0837, Until Sat10/26/24 at 1519, Routine, diarrhea ondansetron (Zofran) injection 4 mg(Linked Group 2) 4 mg, Intravenous, Every 6 hours PRN, Starting on Sat10/19/24 at 0105, Until Sat10/26/24 at 1519, Routine, vomiting, nausea 1604 (Given - Provider: Genoveva Caraballo) 0005 (Canceled Entry - Provider: Madisyn Hill)1345 (See Alternative - Provider: Genoveva Caraballo) ondansetron ODT (Zofran-ODT) disintegrating tablet 4 mg(Linked Group 2) 4 mg, Oral, Every 6 hours PRN, Starting on Sat10/19/24 at 0105, Until Sat10/26/24 at 1519, Routine, nausea, vomiting 1604 (See [...] Provider: Genoveva Caraballo)2225 (Given - Provider: Opal Kumar, RN) 0425 (Given - Provider: Opal Kumar, RN)1036 (Given - Provider: Mikey Holt, RN) oxyCODONE (Roxicodone) immediate release tablet 5 mg(Linked Group 3) 5 mg, Oral, Every 6 hours PRN, Starting on 10/24/24 at 0632, Until 10/26/24 at 1519, Routine, moderate pain 0819 (See Alternative - Provider: Genoveva Caraballo)1325 (See Alternative - Provider: Genoveva Caraballo)2011 (See Alternative - Provider: Madisyn Hill) 0434 (See Alternative - Provider: Madisyn Hill)0945 (See Alternative - Provider: Genoveva Caraballo)1629 (See Alternative - Provider: Genoveva Caraballo)222 (See Alternative - Provider: Opal Kumar, STEFFI) 0425 (See Alternative - Provider: Opal Kumar, STEFFI)1036 (See Alternative - Provider: Mikey Holt, RN) prochlorperazine (Compazine) injection 2.5 mg 2.5 mg, Intravenous, Every 6 hours PRN, Starting on 10/24/24 at 1846, Until 10/26/24 at 1519, Routine, nausea, vomiting 2012 (Given - Provider: Madisyn Hill) Linked Groups Order Group 1: glucose (Glutose) 40 % oral gel 15 grams of glucose (CANCELED) 15 grams of glucose, Sublingual, Every 15 min PRN, Starting on 10/21/24 at 0033, Until 10/21/24 at 0749, Routine, low blood sugar, per Hypoglycemia Prevention and Treatment protocol Or dextrose 50 % solution 12.5 gJump to med 12.5 g, Intravenous, Every 15 min PRN, Starting on 10/21/24 at 0033, Until 10/26/24 at 1519, Routine, low blood sugar Or [...] Until Sat10/26/24 at 1519, Routine, moderate pain Or oxyCODONE (Roxicodone) immediate release tablet 10 mgJump to med 10 mg, Oral, Every 6 hours PRN, Starting on 10/24/24 at 0632, Until Sat10/26/24 at 1519, Routine, severe pain documented in this encounter Additional Health Concerns Assessment Noted Time A fall risk assessment has been complete d for the patient 03/20/2024 8:48 AM EDT A Body Mass Index follow-up plan has been documented for the patient 10/26/2024 12:39 PM EDT documented as of this encounter Care Teams Agile Tester Relationship Specialty Start Date End Date Roman Medina MD PCP - General 06/24/22 Lazarus North MD [address] [place] [address] 06/24/22 documented as of this encounter
--- OUTSIDE RECORDS SUMMARY | 2024-10-21 13:37 | XMS_ITS | Encounter Summary ---
Author Organization [facility] Address [address] [id number] Care Team Providers Care Research Hydraulic Engineer Name Role Phone Roman Medina MD Primary Care Provider [phone] Lazarus North MD Unavailable [phone] Reason for Visit * Auth/Cert (Routine) Specialty Diagnoses / Procedures Referred By Contac t Referred To Contact Diagnoses SBO (small bowel obstruction) (CMS/HCC) Little Mendoza MD [address] [facility] [address] [place] [address] Phone: tel: fax: [facility] [address] [place] [address] Phone: tel: Referral ID Status Reason Start Date Expiration Date Visits Re quested Visits Authorized [id number] 1 1 Encounter Details Date Type Department Care Team (Late st Contact Info) Description 10/21/2024 1:37 PM EDT Anesthesia Event [facility] O[facility] ROOM [address] [place] [address] Ирина Tejeda CRNA [address] [place] [address] Vinay Bartlett DO [address] [place], [place] [id number] Anesthesia Record Procedure Summary Procedure Name Responsible Anesthesiologist Anesthesia Start Time Anesthesia Stop Time LAPAROTOMY, EXPLORATORY, WITH LYSIS OF ADHESIONS (Abdomen) Ирина Tejeda CRNA 10/21/24 1337 10/21/24 1631 Events Date Time Event Comment 10/21/2024 1219 1337 In Room 1337 AN Equip Check 1337 An Start The patient was reevaluated immediately before sedation and remains eligible for anesthesia plan. 1337 An Start Data 1347 An Induction The patient was reevaluated immediately before moderate or deep sedation use and before anesthesia induction. 1349 An Intubation 1400 [place] Venipuncture se tting used on NIBP for second IV placement 1405 Anesthesia Ready 1411 Proc Start 1431 Attending Handoff 1608 Proc Fin 1615 An Extubation Spontaneous ve ntilation, adequate tidal volume. TOF 4/4, ST > 5 seconds. Oral airway placed, OP suctioned. Extubated. Vital signs stable. Transported to PACU with O2 via face tent. 1615 an stop data 1619 Out of Room 1631 Handoff to Receiving I compl eted my handoff to the receiving clinician during which we: 1. Identified the patient 2. Identified the responsible provider 3. Reviewed the pertinent medical history 4. Discussed the surgical course 5. Reviewed intra-op anesthesia management and issues during anesthesia 6. Set expectations for post-procedure period 7. Allowed opportunity for questions and acknowledgement of understanding. 1631 An Stop Meds Name Total midazolam (Versed) injection 1 mg/mL 2 m g fentaNYL (Sublimaze) injection 50 mcg/mL 100 mcg lidocaine PF (Xylocaine-MPF) 2% 60 mg propofol (Diprivan) injection 10 mg/mL 1 30 mg rocuronium (ZeMuron) injection 10 mg/mL 60 mg succinylcholine (Anectine) injection 20 mg/mL 100 mg HYDROmorphone PF (Dilaudid) injection 1 mg/mL 1.5 mg ondansetron (Zofran) injection 2 mg/mL 4 mg sugammadex (Bridion) injection 100 mg/mL 200 mg cefOXitin (Mefoxin) vial 2 g 4 g dexmedetomidine (Precedex) infusion in N aCl 4 mcg/mL 24 mcg lactated Ringer's infusion 1,300 mL * Agents Name O2 * Blood No blood administrations on file. Lines, Drains, and Airways Type Details Placement Removal Ileostomy 10/13/21 (unknown da te - this is date/time of admission to floor); 1900; Yes; RLQ 10/13/21 1900 by Yesenia Dykes RN Wound 10/21/24; 1416; N; Y es; Surgical; Abdomen; Upper 10/21/24 1416 by Lynn Vieira RN Negative Pressure Wound Therapy 10/21/24; 1608; (preventative); 10/21/24; Dr. Brito; Yes; Surgical; Abdomen; Lower 10/21/24 1608 by Kylah Shahid RN NG/OG Tube Placement Date: 10/19/24; Placement Time: 0811; Inserted by: Tobi Sesay RN; Type: Nasogastric; Size: 14 Fr; Location: Right nostril; Removal Date: 10/23/24; Removal Time: 0707; Removal Reason: Other (Comment) (removed by team at bedside) 10/19/24 0811 by Kayla Farris RN 10/23/24 0707 by Genoveva Caraballo Peripheral IV Placement Date: 10/20/24; Placement Time: 0309 (created via procedure documentation); Catheter Size: 20 G; Orientation: Left, Upper; Location: Arm; Site Prep: Alcohol, Chlorhexidine ; Technique: Ultrasound guidance; Insertion Attempts: 3 (first two attempts to right lower arm); Removal Date: 10/21/24; Removal Time: 1327; Removal Reason: Infiltrated 10/20/24 0309 by Nikky Carl RN 10/21/24 1327 by Eveline Mcdowell RN Peripheral IV Placement Date: 10/21/24; Placement Time: 0819 (created via procedure documentation); Catheter Size: 20 G; Orientation: Right; Location: Forearm; Site Prep: Chlorhexidine ; Technique: Ultrasound guidance; Insertion Attempts: 1; Removal Date: 10/22/24; Removal Reason: Other (Comment) (painful) 10/21/24 0819 by Rachel Byrd RN 10/22/24 0000 by Concepcion Mcdowell RN ETT Placement Date: 10/21/24; Placement Time: 1349 (created via procedure documentation); Mask Ventilation: 0 (RSI); Technique: Direct laryngoscopy; Type: ETT - single; Single Lumen Tube Size: 7 mm; Cuffed: Yes; Laryngoscope: Ruth Ann; Blade Size: 3; Location: Oral; Grade View: Grade I; Insertion Attempts: 1; Placement Verification: Auscultation, Capnometry; Airway Comments: Bilateral chest rise, bilateral breath sounds, negative epigastric sounds. +ETCO2. Atraumatic intubation, no change in dentition. ; Placed by: KRISTI; Removal Date: 10/21/24; Removal Time: 1615 10/21/24 1349 by Ирина Tejeda CRNA 10/21/24 1615 by Ирина Tejeda CRNA Urethral Catheter Placement Date: 10/21/24; Placement Time: 1355; Inserted by: Lynn Vieira RN; Type: Non-latex, Single lumen, Temperature probe; Size: 16 Fr.; Balloon Size: 10 mL; Urine Returned: Yes; Removal Date: 10/22/24; Removal Time: 1400; Removal Reason: Per order 10/21/24 1355 by Lynn Vieira RN 10/22/24 1400 by Polo Anderson RN Peripheral IV Placement Date: 10/21/24; Placement Time: 1418 (created via procedure documentation); Catheter Size: 18 G; Orientation: Left; Location: Forearm; Local Anesth: None; Technique: Ultrasound guidance; Inserted by: Ирина Tejeda CRNA; Insertion Attempts: 1; Removal Date: 10/23/24; Removal Reason: Other (Comment) (IV not in place during assessment) 10/21/24 1418 by Ирина Tejeda CRNA 10/23/24 0000 by Genoveva Caraballo documented in this encounter Social History Tobacco [...] place to sleep or slept in a [facility] (including now)? No 07/15/2023 Housing Stability Vital [...] time in the past 12 m [facility], were you homeless or living in a [facility] (including now)? 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 0 12/07/2023 CAGE Questionnaire Score 0 024 Utilities Answer Date Recorded In the past 12 months has th [employer] electric, gas, oil, or water company threatened [...] on file documented as of this encounter Functional Status * Are you [...] Assessment Author No Risk Indicated 10/21/2024 8:00 PM EDT Mahan, Aung M, RN * Question Answer Date of Assessment Author 1. Wish to be (Past 1 Month) No 025 8:00 PM EDT Aung Mahan, RN 2. Non-Specific Active Suici claribel Thoughts (Past 1 Month) No 10/21/2024 8:00 PM EDT David Mahan, RN 6. Suicidal Behavior (Lifetime) No 8:00 PM EDT Aung Mahan, RN documented as of this encounter Mental Status * Because of a physical, mental, or emotional condition, do you have serious difficulty concentrating, remembering, or making decisions? (5 years old or older) Answer Entry Date Author No 07/15/2023 12:07 PM EST Carlos Zavala RN documented in this encounter Miscellaneous Notes * Anesthesia Postprocedure Evaluation - Ирина Tejeda CRNA - 10/21/2024 4:31 PM EDT Patient: Davina Vidal Anesthesia Type: general Vitals Value Taken Time BP 167/79 10/21/24 16:25 Temp 98.1 10/21/24 16:31 Pulse 63 10/21/24 16:30 Resp 18 10/21/24 16:30 SpO2 84 % 10/21/24 16:30 Vitals shown include unfiled device data. Anesthesia Post Evaluation Patient location during evaluation: PACU Patient participation: complete - patient participated Level of consciousness: baseline Pain management: adequate (pain score 0-3) Airway patency: natural airway Cardiovascular status: acceptable Respiratory status: acceptable and spontaneous ventilation (face tent) Hydration status: acceptable No notable events documented. * Anesthesia Procedure Notes - Ирина Tejeda CRNA - 10/21/2024 2:20 PM EDT Associated Order(s): Airway Airway Date/Time: 10/21/2024 1:49 PM Reason: elective Airway not difficult General Information and Staff Patient location during procedure: OR CIGAR BANDER: Ирина Tejeda CRNA Performed: CIGAR BANDER Patient Condition Indications for airway management: anesthesia and airway protection Patient position: sniffing Final Airway Details Final airway type: endotracheal airway Successful airway: ETT Cuffed: yes Successful intubation technique: direct laryngoscopy Adjuncts used in placement: intubating stylet and cricoid pressure Endotracheal tube insertion site: oral Blade: Ruth Ann Blade size: #3 ETT size (mm): 7.0 Cormack-Lehane Classification: grade I - full view of glottis Placement verified by: chest auscultation and capnometry Measured from: lips ETT to lips (cm): 21 Additional Comments Bilateral chest rise, bilateral breath sounds, negative epigastric sounds. +ETCO2. Atraumatic intubation, no change in dentition. * Anesthesia Procedure Notes - Ирина Tejeda CRNA - 10/21/2024 2:17 PM EDT Associated Order(s): Peripheral IV Peripheral IV Inserted by: Ирина Tejeda CRNA Placement Needle size: 18 G Location: forearm Local anesthetic: none Site prep: alcohol Technique: ultrasound guided Attempts: 1 * Anesthesia Preprocedure Evaluation - Jonatan Ashraf MD - 10/20/2024 2:42 PM EDT Patient: Davina Vidal Procedure Information Date/Time: 10/21/24 1335 Procedure: LAPAROTOMY, EXPLORATORY, WITH LYSIS OF ADHESIONS Location: [facility] Surgeons: Farnaz Brito MD HPI Davina Vidal is a 68 y.o. female with PMHx of COPD (on 2 L at night), PE (completed anticoagulation 05/2024), HTN, HLD, mood disorder, hypothyroidism, GERD, lumbar DDD, Neoplasm of anal canal andrectum perforated diverticulitis (s/p total abdominal colectomy with end ileostomy 2020 s/p revision 2021) and multiple prior bowel obstructions requiring adhesiolysis presenting 10/19/24 for SBO. Date Difficult Airway Blade Size ETT Size C-L Class Final Type Intubation Method 10/17/23 No 3 7.0 grade I - full view of glottis endotracheal airway direct laryngoscopy 08/30/22 No 3 7.5 grade I - full view of glottis endotracheal airway direct laryngoscopy 10/16/21 No 3 7.0 grade I - full view of glottis endotracheal airway direct laryngoscopy NPO STATUS: [place], right nare NG in place Activity Level/METS: near 4, limited by weakness/deconditioning and COPD. No chest pain Relevant Problems Anesthesia (+) Mild obstructive sleep apnea Cardio (+) Coronary artery calcification seen on CT scan (+) HTN (hypertension) (+) Pulmonary embolism, bilateral (CMS/HCC) Endo (+) Hypothyroidism GI (+) GERD (gastroesophageal reflux disease) (+) Partial small bowel obstruction (CMS/HCC) (+) SBO (small bowel obstruction) (CMS/HCC) Pulmonary (+) Emphysema/COPD (CMS/HCC) Nervous (+) Lumbar radiculopathy Circulatory (+) Diastolic dysfunction (+) Elevated left ventricular end-diastolic pressure (LVEDP) (+) HHD (hypertensive heart disease) Digestive (+) Anal cancer (CMS/HCC) (+) Vitamin D deficiency Musculoskeletal (+) Compression fracture Other (+) At high risk for falls (+) Mood disorder (CMS/HCC) SOCIAL HX Tobacco Use History[1] Social History Substance and Sexual Activity Alcohol Use Not Currently Alcohol/week: 1.0 standard drink of alcohol Types: 1 Glasses of wine per week Comment: occasionally Social History Substance and Sexual Activity Drug Use Not Currently Types: Marijuana Comment: On occasion mostly to be able to slee. SURGICAL HX Surgical History[2] ALLERGIES Allergies[3] MEDICATIONS Scheduled acetaminophen, 650 mg, Nasogastric, q6h buPROPion, 150 mg, Nasogastric, BID carvedilol, 3.125 mg, Nasogastric, BID diatrizoate meglumine-sodium, 120 mL, Oral, Once in imaging enoxaparin, 40 mg, Subcutaneous, Daily gabapentin, 125 mg, Nasogastric, BID methocarbamol, 500 mg, Nasogastric, 4x daily mometasone-formoterol, 2 puff, Inhalation, BID pantoprazole, 40 mg, Intravenous, Daily rOPINIRole, 0.5 mg, Oral, Nightly Tiotropium [place] Monohydrate, 2 puff, Inhalation, Daily LABS Labs in last 18 hours CBC WBC ?? Hb ?? Plt ?? Hct ?? ANC ?? INR ??, PTT ??, Anti-Xa ?? BMP Na 145 Cl 105 BUN 13 Glu 107 (H) K 3.6 Co2 31 (H) Cr 0.91 Ca 8.8 (L) iCa ?? Mg 1.2 (L), Phos 3.7 Lactate ?? LFT AST ?? AlkPhos ?? T Prot ?? ALK ?? Bili ?? Alb ?? D.Bili ?? EKG, ECHO, Cath, Imaging, PFTs EKG Encounter Date: 10/18/24 EKG now - STAT (adult) Result Value EKG DIAGNOSIS CLASS Abnormal Ventricular Rate 93 Atrial Rate 93 WV Interval 150 QRSD Interval 70 QT Interval 352 QTC Interval 437 P Ozan 82 R Ozan 12 T Wave Ozan 60 Diagnosis Normal sinus rhythm Diagnosis Low voltage QRS Diagnosis Cannot rule out Anterior infarct , age undetermined Diagnosis Abnormal ECG Diagnosis Diagnosis Confirmed by Grzegorz Butcher ([id number]) on 10/19/2024 12:57:13 PM *Note: Due to a large number of results and/or encounters for the requested time period, some results have not been displayed. A complete set of results can be found in Results Review. ECHO 2020 The left ventricular end-diastolic dimension is normal for females (3.8-4.8cm) The left ventricle is hyperdynamic, with EF 60 - 80%, suggestive of high cardiac output state. The right ventricle is not well visualized. The right ventricle is grossly normal size. The right ventricular systolic function is normal. No hemodynamically significant valvular aortic stenosis. Trace pericardial effusion. Large left pleural effusion. CXR PFTs Pulmonary Functions Testing Results: No results found for: YIY4FLI , [id number] , NHA3MXE , FVCPRED OSH PFT 01/09/23 - FVC 2.62 83%, FEV1 1.38 57%, ratio 53%. Moderate obstructive lung disease. Significant airway reversibility noted in FEV1 at 13%. Significant small airway reversibility also noted. No restriction noted. No air trapping noted. OSH 6 MWT 01/09/23 - performed on RA did not showed any significant desaturations less than 89%. Saturation were maintained at 93% throughout the testing. Test was aborted at 3 minutes due to back andleg pain. Walked only 170 feet. Body mass index is 27.45 kg/m??. Vitals: 10/20/24 1158 BP: 136/75 Pulse: 71 Resp: 16 Temp: 36.8 ??C (98.3 ??F) SpO2: 90% ROS Anesthesia: history of previous anesthesia and obstructive sleep apnea (Has a CPAP but doen't wear it cause it isn't working). Does not have a history of anesthetic complications. Cardiovascular: CAD (seen on CT imaging), CHF and hyperlipidemia. Does not have atrial fibrillation, dysrhythmias, pacemaker or past NH. hypertension: Does not have chest pain. Respiratory: home oxygen (2L nocturnally). no asthma: COPD: breathing at baseline. HEENT: missing teeth.Does not have loose teeth. Neurological: seizures (not on AEDs): last episode was > 1 year ago. Did not have a cerebrovascular accident. Neuro additional comments: Mood disorder Musculoskeletal: Does not have cervical spine instability. Musc/Skel/Integ additional comments: lumbar DDD Gastrointestinal: GERD: well controlled.Does not have cirrhosis. GI/ additional comments: Neoplasm of anal canal and rectum, perforated sigmoid diverticulitis s/pTAC with end ileostomy, colostomy (Dr. Sanders, 09/2021) Genitourinary: Does not have chronic renal disease. Hematological/Lymphatic: History of DVT (LLE 2002 pt states due to hormone replacement.). History of pulmonary embolism (completed anticoagulation). history of chemotherapy (1994) without cardiopulmonary complications. 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 Endocrine/Metabolic: does not have diabetes mellitus. thyroid disorder. Physical Exam Airway Mallampati: I Mouth opening: normal TM distance: >3 FB Neck ROM: full Cardiovascular Rhythm: regular Rate: normal Dental (+) edentulous Pulmonary Breath sounds clear to auscultation Neurological Oriented: normal to time, normal to place and normal to person and oriented to person, place and time Skin Skin: warm and dry Musculoskeletal Extremities Anesthesia Plan ASA 3 Plan was reviewed with: CIGAR BANDER Anesthesia technique(s) discussed with the patient/family: general Anesthesia plan agreed upon was: general Anesthetic plan and risks discussed with patient. Use of blood products discussed with patient who consented to blood products. Additional Equipment Requests [1] Social History Tobacco Use Smoking Status Former Current packs/day: 0.00 Types: Cigarettes Quit date: 2018 Years since quittin.3 Smokeless Tobacco Never [2] Past Surgical History: Procedure Laterality Date BAND HEMORRHOIDECTOMY BLADDER SURGERY N/A Bladder surgery from [facility] CARPAL TUNNEL RELEASE Bilateral CATARACT EXTRACTION Bilateral CHOLECYSTECTOMY COLON SURGERY total adominal colectomy COLONOSCOPY EMBOLECTOMY N/A Arterial Embolectomy By Femoral Incision from [facility] EXPLORATORY LAPAROTOMY W/ BOWEL RESECTION FOOT SURGERY HEMORRHOID SURGERY N/A Hemorrhoidectomy from [facility] HYSTERECTOMY N/A Hysterectomy from [facility] PERCUTANEOUS PORTAL VEIN CATHETER N/A Percutaneous Portal Vein Catheter Placement from [facility] RECTAL SURGERY MULTIPLE VAGINA SURGERY 10/17/2023 bladder mesh excision [3] Allergies Allergen Reactions Codeine Itching, Nausea and Rash Dexamethasone Itching and Hives Sulfa Drugs Rash and Other - please document in the comment field Nausea/Vomiting Ibuprofen Rash and Other - please document in the comment field nausea documented in this encounter Plan of Treatment Upcoming Encounters Date Type Department Care Team (Late st Contact Info) Description 12/03/2024 9:30 AM EDT Office Visit [facility] General Surgery [address] [place] [address] Diogenes Al MD [address] [place] [address] documented as of this encounter Procedures Procedure Name Priority Date/Time Associated Diagnosis Comments ANESTHESIA ULTRASOUND GUIDED Routine 10/21/2024 2:17 PM EDT PB ANESTHESIA PLACEHOLDER Routine 10/21/2024 1:49 PM EDT WV AN ELECTIVE ENDOTRACHEAL AIRWAY Routine 10/21/2024 1:49 PM EDT documented in this encounter Results * ANESTHESIA ULTRASOUND GUIDED (10/21/2024 2:17 PM EDT) Narrative Ирина Tejeda CRNA - 10/21/2024 2:17 PM EDT Ирина Tejeda CRNA 10/21/2024 2:18 PM Peripheral IV Inserted by: Ирина Tejeda CRNA Placement Needle size: 18 G Location: forearm Local anesthetic: none Site prep: alcohol Technique: ultrasound guided Attempts: 1 us Jonatan Ashraf MD ANESTHESIA ORDERABLES Final R esult * WV AN ELECTIVE ENDOTRACHEAL AIRWAY, PB ANESTHESIA PLACEHOLDER (10/21/2024 1:49 PM EDT) Narrative Ирина Tejeda CRNA - 10/21/2024 1:49 PM EDT Ирина Tejeda CRNA 10/21/2024 2:20 PM Airway Date/Time: 10/21/2024 1:49 PM Reason: elective Airway not difficult General Information and Staff Patient location during procedure: OR CIGAR BANDER: Ирина Tejeda CRNA Performed: KRISTI Patient Condition Indications for airway management: anesthesia and airway protection Patient position: sniffing Final Airway Details Final airway type: endotracheal airway Successful airway: ETT Cuffed: yes Successful intubation technique: direct laryngoscopy Adjuncts used in placement: intubating stylet and cricoid pressure Endotracheal tube insertion site: oral Blade: Ruth Ann Blade size: #3 ETT size (mm): 7.0 Cormack-Lehane Classification: grade I - full view of glottis Placement verified by: chest auscultation and capnometry Measured from: lips ETT to lips (cm): 21 Additional Comments Bilateral chest rise, bilateral breath sounds, negative epigastric sounds. +ETCO2. Atraumatic intubation, no change in dentition. us Jonatan Ashraf MD ANESTHESIA ORDERABLES Final R esult documented in this encounter Visit Diagnoses Not on filedocumented in this encounter Administered Medications Inactive Administered Medications - up to 3 most recent administrations Medication Order MAR Action Action Date Dose Rate Site cefOXitin (Mefoxin) injection Intravenous, As needed, Starting on Sat10/21/24 at 1409, Until Sat10/21/24 at 1631, Routine, Anesthesia Intraprocedure Given 10/21/2024 4:09 PM EDT 2 g Given 10/21/2024 2:09 PM EDT 2 g dexmedetomidine in NS (Precedex) 4 mcg/mL infusion Intravenous, As needed, Starting on Sat10/21/24 at 1630, Until Sat10/21/24 at 1631, Routine Given 10/21/2024 4:30 PM EDT 12 mcg Given 10/21/2024 4:21 PM EDT 12 mcg fentaNYL (Sublimaze) injection Intravenous, As needed, Starting on Sat10/21/24 at 1409, Until Sat10/21/24 at 1631, Routine, Anesthesia Intraprocedure Given 10/21/2024 2:18 PM EDT 50 mcg Given 10/21/2024 2:09 PM EDT 50 mcg HYDROmorphone PF (Dilaudid) injection Intravenous, As needed, Starting on Sat10/21/24 at 1532, Until Sat10/21/24 at 1631, Routine, Anesthesia Intraprocedure Given 10/21/2024 4:30 PM EDT 0.5 mg Given 10/21/2024 4:09 PM EDT 0.5 mg Given 10/21/2024 3:32 PM EDT 0.5 mg lactated Ringer's infusion Intravenous, Continuous PRN, Starting on Sat10/21/24 at 1337, Until Sat10/21/24 at 1631, Routine New Bag 10/21/2024 2:44 PM EDT New Bag 10/21/2024 1:37 PM EDT lidocaine PF (Xylocaine) 2 % injection Intravenous, As needed, Starting on Sat10/21/24 at 1347, Until Sat10/21/24 at 1631, Routine, Anesthesia Intraprocedure Given 10/21/2024 1:47 PM EDT 60 mg midazolam (Versed) injection Intravenous, As needed, Starting on Sat10/21/24 at 1337, Until Sat10/21/24 at 1631, Routine, Anesthesia Intraprocedure Given 10/21/2024 1:37 PM EDT 2 mg ondansetron (Zofran) injection Intravenous, As needed, Starting on Sat10/21/24 at 1559, Until Sat10/21/24 at 1631, Routine, Anesthesia Intraprocedure Given 10/21/2024 3:59 PM EDT 4 mg propofol (Diprivan) injection Intravenous, As needed, Starting on Sat10/21/24 at 1347, Until Sat10/21/24 at 1631, Routine, Anesthesia Intraprocedure Given 10/21/2024 1:47 PM EDT 130 mg rocuronium (ZeMuron) injection Intravenous, As needed, Starting on Sat10/21/24 at 1356, Until Sat10/21/24 at 1631, Routine, Anesthesia Intraprocedure Given 10/21/2024 3:32 PM EDT 10 mg Given 10/21/2024 1:56 PM EDT 45 mg Given 10/21/2024 1:47 PM EDT 5 mg succinylcholine (Anectine) injection Intravenous, As needed, Starting on Sat10/21/24 at 1347, Until Sat10/21/24 at 1631, Routine, Anesthesia Intraprocedure Given 10/21/2024 1:47 PM EDT 100 mg sugammadex (Bridion) 100 MG/ML injection Intravenous, As needed, Starting on Sat10/21/24 at 1606, Until Sat10/21/24 at 1631, Routine, Anesthesia Intraprocedure Given 10/21/2024 4:06 PM EDT 200 mg documented in this encounter Additional Health Concerns Assessment Noted Time A fall risk assessment has been complete d for the patient 03/20/2024 8:48 AM EDT A Body Mass Index follow-up plan has been documented for the patient 10/26/2024 12:39 PM EDT documented as of this encounter Care Teams Research Hydraulic Engineer Relationship Specialty Start Date End Date Roman Medina MD PCP - General 06/24/22 Lazarus North MD [address] [place] [id number] 06/24/22 documented as of this encounter
--- OUTSIDE RECORDS SUMMARY | 2024-11-05 10:15 | XMS_ITS | Encounter Summary ---
Author Organization Healthcare Address [address] [place] [address] Care Team Providers Care Vendor Management Consultant Name Role Phone Roman Medina MD Primary Care Provider [phone] Lazarus North MD Unavailable [phone] Reason for Visit * Reason Comments Post-op Encounter Details Date Type Department Care Team (Late st Contact Info) Description 11/05/2024 10:15 AM EDT Office Visit [facility] General Surgery [address] [place] [address] Farnaz Brito MD [address] [facility] [address] [place] [address] SBO (small bowel obstruction) (CMS/HCC) [...] place to sleep or slept in a chcf (including now)? No 07/15/2023 Housing Stability Vital Sign Answer Efe e Recorded In the last 12 months, was t here a time when you were not able to pay the mortgage or rent on time? No 10/23/2024 In the past 12 months, how m any times have you moved where you were living? 0 10/23/2024 At any time in the past 12 m [facility], were you homeless or living in a chcf (including now)? 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-PAPER CUTTER OPERATOR) to steady your nerves or to [...] List Items Addressed This Visit Ileostomy present (CMS/[facility]) Overview Hx of perf diverticulitis [...] [facility] General Surgery [address] [place] [address] Diogenes Al MD [address] [place] [address] documented as of this encounter Visit Diagnoses [...] documented as of this encounter Care Teams Vendor Management Consultant Relationship Specialty Start Date End Date Roman Medina MD PCP - General 06/24/22 Lazarus North MD [phone] [facility] [place] [address] [id number] 06/24/22 documented as of this encounter
--- NOTE | 2024-12-03 07:00 | CT_ITS ---
FINAL REPORT TECHNIQUE: Pre-and postcontrast images of the abdomen and pelvis were performed by computed tomography. Extensive 3-D reconstruction images were performed. A CTA was performed. This study was performed with techniques to keep radiation doses as low as reasonably achievable (ALARA). Individualized dose reduction techniques using automated exposure control or adjustment of mA and/or kV according to the patient's size were employed. 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 There is mild fatty infiltration of the liver, and the patient has undergone a prior cholecystectomy. The common bile duct measures up to 1.0 cm in size, likely post cholecystectomy change. An anterior abdominal wall ostomy on the right is once again noted. The spleen, pancreas, adrenal glands, and kidneys are unremarkable. There is mild stranding of fat anterior to the sacrum. There is lumbar scoliosis convex to the left, 20 degrees. CTA: There is redemonstration of lobular appearing mural thrombus in the posteromedial lower thoracic aorta extending into the abdominal aorta, measuring up to 1.2 cm in depth. The overall appearance is similar to the prior MRI of 11/20/2024. There is no evidence of increase in the amount of thrombus identified in the aorta. There is a small patient at the origin of the celiac axis which does not produce hemodynamically significant stenosis. The celiac, SMA, and JACOBO arteries are patent. Single renal arteries are noted bilaterally. 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 No evidence of new or worsening aortic dissection is identified. No significant narrowing is noted in the mesenteric or renal arteries. Reviewed, Interpreted and Dictated by Michael Avery MD Transcribed by Micheline Cohn Authenticated and [facility]
--- OUTSIDE RECORDS SUMMARY | 2024-12-03 07:39 | XMS_ITS | Encounter Summary ---
Author Organization [facility] Address [address] [place] [address] Care Team Providers Care Transitional Nurse Name Role Phone Roman Medina MD Primary Care Provider [phone] Lazarus North MD Unavailable [phone] Encounter Details Date Type Department Care Team (Latest Contact Info) Description 10/19/2024 Travel Social History Tobacco Use Types Packs/Day Years [...] place to sleep or slept in a half-way (including now)? No 07/15/2023 Housing Stability Vital [...] time in the past 12 m [facility], were you homeless or living in a half-way (including now)? No 10/01/2024 CAGE ASSESSMENT Answer [...] drink first t cash in the morning (EYE-VIDEO ENGINEER) to steady your nerves or to get [...] Carlos Bradley RN documented in this encounter Plan of Treatment Upcoming Encounters Date Type Department Care Team (Late st Contact Info) Description 12/03/2024 9:30 AM EDT Office Visit [facility] General Surgery [address], [address] [place] [address] Diogenes Al MD [address] [place] [address] documented as of this encounter Visit Diagnoses Not on filedocumented in this encounter Additional Health Concerns Assessment Noted Time A fall risk assessment has been complete d for the patient 03/20/2024 8:48 AM EDT A Body Mass Index follow-up plan has been documented for the patient 10/26/2024 12:39 PM EDT documented as of this encounter Care Teams Transitional Nurse Relationship Specialty Start Date End Date Roman Medina MD PCP - General 06/24/22 Lazarus North MD [address] [place] [address] 06/24/22 documented as of this encounter
--- OUTSIDE RECORDS SUMMARY | 2024-12-03 07:39 | XMS_ITS | Encounter Summary ---
Author Organization [facility] Address [address] [place] [address] Care Team Providers Care All Source Intelligence Technician Name Role Phone Roman Medina MD Primary Care Provider [phone] Lazarus North MD Unavailable [phone] Encounter Details Date Type Department Care Team (Latest Contact Info) Description 10/18/2024 Travel Social History Tobacco Use Types Packs/Day [...] place to sleep or slept in a mcc (including now)? No 07/15/2023 Housing Stability Vital Sign Answer Efe e Recorded In the last 12 months, was t here a time when you were not able to pay the mortgage or rent on time? No 10/01/2024 In the past 12 months, how m any times have you moved where you were living? 0 10/01/2024 At any time in the past 12 m [facility], were you homeless or living in a mcc (including now)? No 10/01/2024 CAGE ASSESSMENT Answer [...] drink first t cash in the morning (EYE-FLIGHT ENGINEER INSTRUCTOR) to steady your nerves or to get [...] Date of Assessment Author No Risk Indicated 10/18/2024 8:35 PM Chiquis Herrera RN * Question Answer Date of Assessment Author 1. Wish to be (Past 1 Month) No 025 8:35 PM Chiquis Herrera RN 2. Non-Specific Active Suici claribel Thoughts (Past 1 Month) No 10/18/2024 8:35 PM KIAHT Chiquis Maddox, RN 6. Suicidal Behavior (Lifetime) No 8:35 PM KIAHT Chiquis Maddox, RN documented as of this encounter Mental [...] Description 12/03/2024 9:30 AM EDT Office Visit [facility] General Surgery [address], [address] [place] [address] Diogenes Al MD [address] [place] [address] documented as of this encounter Visit Diagnoses Not on filedocumented in this encounter Additional Health Concerns Assessment Noted Time A fall risk assessment has been complete d for the patient 03/20/2024 8:48 AM EDT A Body Mass Index follow-up plan has been documented for the patient 10/26/2024 12:39 PM EDT documented as of this encounter Care Teams All Source Intelligence Technician Relationship Specialty Start Date End Date Roman Medina MD PCP - General 06/24/22 Lazarus North MD [address] [place] [address] 06/24/22 documented as of this encounter
--- OUTSIDE RECORDS SUMMARY | 2024-12-03 07:39 | XMS_ITS | Encounter Summary ---
Author Organization Healthcare Address [address] [place] [address] Care Team Providers Care Decal Decorator Name Role Phone Roman Medina MD Primary Care Provider [phone] Lazarus North MD Unavailable [phone] Reason for Visit * Reason Comments Med Refill Encounter Details Date Type Department Care Team (Late st Contact Info) Description 10/21/2024 Refill [facility] [address] [place] [address] Vicky Alonzo E, CARTON FORMING MACHINE TENDER [address] [place] [address] Recurrent UTI (Primary Dx) Social History Tobacco Use Types Packs/Day Years [...] place to sleep or slept in a residential (including now)? No 07/15/2023 Housing Stability Vital Sign Answer Efe e Recorded In the last 12 months, was t here a time when you were not able to pay the mortgage or rent on time? No 10/23/2024 In the past 12 months, how m any times have you moved where you were living? 0 10/23/2024 At any time in the past 12 m [facility], were you homeless or living in a residential (including now)? 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-CLAIMS REPRESENTATIVE) to steady your nerves or to get rid of a hangover? 0 12/07/2023 CAGE Questionnaire Score 0 024 Utilities Answer Date Recorded In the past 12 months has e [employer], gas, oil, or water [employer] threatened to shut off services in your [...] Date of Assessment Author No Risk Indicated 10/23/2024 7:45 AM EDT Elmer Caraballo * Question Answer Date of Assessment Author 1. Wish to be (Past 1 Month) No 025 7:45 AM EDT Genoveva Caraballo 2. Non-Specific Active Suici claribel Thoughts (Past 1 Month) No 10/23/2024 7:45 AM EDT Genoveva Caraballo 6. Suicidal Behavior (Lifetime) No 7:45 AM EDT Genoveva Caraballo documented as of this encounter Mental Status * Because of a physical, mental, or emotional condition, do you have serious difficulty concentrating, remembering, or making decisions? (5 years old or older) Answer Entry Date Author No 07/15/2023 12:07 PM Carlos Bradley, STEFFI documented in this encounter Miscellaneous Notes * Telephone Encounter - Serina Quinones - 10/23/2024 12:26 PM EDT 10/23/24- The pt was called and advised refills was approved if she needed more she would need to schedule a follow up however she says that she will get pcp to take over meds refill * Telephone Encounter - Yana Goncalves, PharmD - 10/21/2024 8:22 AM EDT Methenamine medication(s) has been approved per protocol. Patient must schedule an appointment and be seen in clinic for additional refills. documented in this encounter Plan of Treatment Upcoming Encounters Date Type Department Care Team (Late st Contact Info) Description 12/03/2024 9:30 AM EDT Office Visit [facility] General Surgery [address] [place] [address] Diogenes Al MD [address] [place] [address] documented as of this encounter Visit Diagnoses Diagnosis Recurrent UTI- Primary Urinary tract infection, site not specified documented in this encounter Additional Health Concerns Assessment Noted Time A fall risk assessment has been complete d for the patient 03/20/2024 8:48 AM EDT A Body Mass Index follow-up plan has been documented for the patient 10/26/2024 12:39 PM EDT documented as of this encounter Care Teams Decal Decorator Relationship Specialty Start Date End Date Roman Medina MD PCP - General 06/24/22 Lazarus North MD [address] [place] [address] 06/24/22 documented as of this encounter
--- OUTSIDE RECORDS SUMMARY | 2024-12-03 07:39 | XMS_ITS | Encounter Summary ---
Author Organization [facility] Address [address] [place] [address] Care Team Providers Care Storm Chaser Name Role Phone Roman Medina MD Primary Care Provider [phone] Lazarus North MD Unavailable [phone] Encounter Details Date Type Department Care Team (Latest Contact Info) Description 10/20/2024 Travel Social History Tobacco Use Types Packs/Day [...] place to sleep or slept in a long term (including now)? No 07/15/2023 Housing Stability Vital [...] were you homeless or living in a long term (including now)? No 10/01/2024 CAGE ASSESSMENT Answer [...] drink first t cash in the morning (EYE-DOG WARDEN) to steady your nerves or to get [...] Date of Assessment Author No Risk Indicated 10/20/2024 7:00 AM EDT Elmer Sewell RN * Question Answer Date of Assessment Author 1. Wish to be (Past 1 Month) No 025 7:00 AM KIAHT Vicky Sewell RN 2. Non-Specific Active Suici claribel Thoughts (Past 1 Month) No 10/20/2024 7:00 AM EDT Vicky Sewell RN 6. Suicidal Behavior (Lifetime) No 7:00 AM KIAHT Vicky Sewell, RN documented as of this encounter Mental [...] Description 12/03/2024 9:30 AM EDT Office Visit [facility] General Surgery [address] [place] [address] Diogenes Al MD [address] [place] [address] documented as of this encounter Visit Diagnoses Not on filedocumented in this encounter Additional Health Concerns Assessment Noted Time A fall risk assessment has been complete d for the patient 03/20/2024 8:48 AM EDT A Body Mass Index follow-up plan has been documented for the patient 10/26/2024 12:39 PM EDT documented as of this encounter Care Teams Storm Chaser Relationship Specialty Start Date End Date Roman Medina MD PCP - General 06/24/22 Lazarus North MD [address] [place] [address] 06/24/22 documented as of this encounter
--- OUTSIDE RECORDS SUMMARY | 2024-12-03 07:40 | XMS_ITS | Encounter Summary ---
Author Organization Healthcare Address [address] [place] [address] Care Team Providers Care Director Of Strategic Partnerships Name Role Phone Roman Medina MD Primary Care Provider [phone] Lazarus North MD Unavailable [phone] Encounter Details Date Type Department Care Team (Late st Contact Info) Description 11/18/2024 Orders Only External Location [address] [place] [address] Provider, External Social History Tobacco Use Types Packs/Day Years [...] any time in the past 12 m [facility], were you homeless or living in [...] drink first t cash in the morning (EYE-PROTECTIVE SIGNAL INSTALLER) to steady your nerves or to get [...] 9:30 AM EDT Office Visit [facility] General Surgery [address] [place] [address] Diogenes Al MD [address] [place] [address] documented as of this encounter Procedures Procedure Name Priority Date/Time Associated Diagnosis Comments CT THORACIC OUTSIDE IMAGES 11/18/2024 9:12 PM EDT documented in this encounter Results * CT THORACIC OUTSIDE IMAGES (11/18/2024 9:12 PM EDT) Anatomical Region Laterality Modality Computed Tomogra phy 11/18/2024 9:12 PM EDT us External Provider IMG CT PROCEDURES Final Result documented in this encounter Visit Diagnoses Not on filedocumented in this encounter Additional Health Concerns Assessment Noted Time A fall risk assessment has been complete d for the patient 03/20/2024 8:48 AM EDT A Body Mass Index follow-up plan has been documented for the patient 11/05/2024 12:06 PM EDT documented as of this encounter Care Teams Director Of Strategic Partnerships Relationship Specialty Start Date End Date Roman Medina MD PCP - General 06/24/22 Lazarus North MD [address] [place] [id number] 06/24/22 documented as of this encounter
--- OUTSIDE RECORDS SUMMARY | 2024-12-03 07:40 | XMS_ITS | Encounter Summary ---
Author Organization Healthcare Address [address] [place] [address] Care Team Providers Care Clerical Aide Teacher Name Role Phone Roman Medina MD Primary Care Provider [phone] Lazarus North MD Unavailable [phone] Reason for Visit * Reason Comments Med Refill Encounter Details Date Type Department Care Team (Late st Contact Info) Description 11/27/2024 Refill [facility] [address] [place] [address] Vicky Alonzo E, PRESS MACHINE FEEDER [address] [place] [address] Recurrent UTI Social History Tobacco Use Types Packs/Day Years [...] any time in the past 12 m [facility], were you homeless or living [...] drink first t cash in the morning (EYE-SCHOOL PHOTOGRAPH EDITOR) to steady your nerves or to get rid of a hangover? 0 12/07/2023 CAGE Questionnaire Score 0 024 Utilities Answer Date Recorded In the past 12 months has th e [employer], gas, oil, or water [facility] threatened to shut off services in your [...] Date Author No 07/15/2023 12:07 PM EST Zavala, Carlos, RN documented in this encounter Plan of Treatment Upcoming Encounters Date Type Department Care Team (Late st Contact Info) Description 12/03/2024 9:30 AM EDT Office Visit [facility] General Surgery [address] [place] [address] Diogenes Al MD [address] [place] [address] documented as of this encounter Visit Diagnoses Diagnosis Recurrent UTI Urinary tract infection, site not specified documented in this encounter Additional Health Concerns Assessment Noted Time A fall risk assessment has been complete d for the patient 03/20/2024 8:48 AM EDT A Body Mass Index follow-up plan has been documented for the patient 11/05/2024 12:06 PM EDT documented as of this encounter Care Teams Clerical Aide Teacher Relationship Specialty Start Date End Date Roman Mdeina MD PCP - General 06/24/22 Lazarus North MD [address] [place] [address] 06/24/22 documented as of this encounter
--- OUTSIDE RECORDS SUMMARY | 2024-12-03 07:40 | XMS_ITS | Clinical Summary ---
Author Organization [facility] Address [address] 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 Active rosuvastatin (Crestor) 20 MG tablet Take 1 tablet by mouth nightly. Active alendronate (Fosamax) 70 MG tablet Take 1 tablet by mouth every 7 days. Take in the morning with a full glass of water, on an empty stomach, and do not take anything else by mouth or lie down for the next 30 min. Active tiZANidine (Zanaflex) 4 MG tablet Take 1 tablet by mouth every 8 hours as needed for muscle spasms. Active buPROPion (Wellbutrin) 75 MG tablet Take 2 tablets by mouth 2 times a day. 023 Active albuterol 108 (90 Base) MCG/ACT inhaler Inhale 2 puffs 4 times a day as needed for shortness of breath. Active Multiple Vitamin (multivitamin) tablet Take 1 tablet by mouth daily. Active gabapentin (Neurontin) 100 MG capsule Take 1 capsule by mouth 2 times a day. Active oxyCODONE-acetami nophen (Percocet) 5-325 MG tablet Take 1 tablet by mouth every 8 hours as needed for severe pain. Active potassium chloride CR (Klor-Con M20) 20 MEQ ER tablet Take 1 tablet by mouth daily. Do not crush or chew. Active pantoprazole (Protonix) 40 MG EC tablet Take 1 tablet by mouth 2 times a day. Do not crush, chew, or split. Active ergocalciferol 1.25 MG (27249 UT) capsule Take 1 capsule by mouth 1 time per week. Active rOPINIRole (Requip) 0.5 MG tablet Take 1 tablet by mouth nightly. Active ondansetron ODT (Zofran-ODT) 4 MG disintegrating tablet Dissolve 1 tablet on the tongue every 6 hours as needed for nausea or vomiting. 20 tablet Active Bevespi Aerosphere 9-4.8 MCG/ACT aerosol Inhale 2 puffs 2 times a day. Active acetaminophen (Tylenol) 325 MG tablet Take 2 tablets by mouth every 6 hours. Under [place] law, monthly prescriptions (30 days) can be refilled at 25 days and three-month prescriptions (90 days) at 80 days. Please contact the insurance company with questions if refills are denied. 100 tablet Active amLODIPine (Norvasc) 5 MG tablet Take 1 tablet by mouth daily. 30 tablet 1 2024 Active carvedilol (Coreg) 3.125 MG tablet Take 1 tablet by mouth 2 times a day. 60 tablet 1 2024 Active loperamide (Imodium A-D) 2 MG tablet Take 1 tablet by mouth 4 times a day as needed for diarrhea. 30 tablet Active naloxone (Narcan) 4 mg/0.1 mL nasal spray 1. Give 1 spray in nostril for no/slow breathing or cannot wake after opioid use 2. Call 911 3. Repeat in other nostril if symptoms continue 1 each Active Additional Information Patient not taking.Reported on 11/05/2024 methenamine hippurate (Hiprex) 1 g tabletIndications :Recurrent UTI TAKE ONE TABLET BY MOUTH 2 TIMES A DAY 60 tablet 025 Active methenamine hippurate (Hiprex) 1 g tabletIndications :Recurrent UTI TAKE ONE TABLET BY MOUTH 2 TIMES A DAY 60 tablet 025 2024 Discontinued oxyCODONE (Roxicodone) 5 MG immediate release tablet [...] for up to 2 days. 40 tablet 025 2024 phosphorus (K Phos Neutral) tablet Take 1 tablet by mouth 2 times a day for 5 doses. 5 tablet 025 2024 Active Problems Problem Noted Date Diagnosed Date SBO (small bowel obstruction) 11/05/2024 Ileostomy present 09/29/2024 Overview (10/25/2024): Hx of perf diverticulitis s/p total colectomy with end ileostomy 2020 and revision 2021 Monitor output Complication of implanted va ginal mesh, unspecified complication, subsequent encounter 10/17/2023 At high risk for falls 10/10/2023 Anal cancer 04/10/2023 04/10/2023 Coronary artery calcification seen on CT scan 04/10/2023 Diastolic dysfunction 04/10/2023 04/10/2023 Elevated left ventricular end-diastolic pressure (LVEDP) 04/10/2023 04/10/2023 Almazan catheter problem 04/10/2023 HHD (hypertensive heart disease) 04/10/2023 04/10/2023 Lumbar radiculopathy 04/10/2023 04/10/2023 Vitamin D deficiency 04/10/2023 04/10/2023 HTN (hypertension) 06/25/2022 Overview (09/08/2024): Resume home carvedilol COPD (chronic obstructive pulmonary disease) 07/2022 Overview (10/25/2024): 2L nightly home O2 Mood disorder 06/25/2022 Overview (09/29/2024): Resume home meds Hypothyroidism 06/25/2022 Overview (10/26/2024): No home meds GERD (gastroesophageal reflux disease) Overview (09/08/2024): Resume PPI Hyperlipidemia 10/13/2021 Overview (09/08/2024): Resume home statin Astigmatism of both eyes with presbyopia 015 04/10/2023 Combined form of age-related cataract, both eyes 04/12/2015 04/10/2023 Emphysema/COPD 11/17/2014 02/17/2023 Overview (09/29/2024): Pulm hygiene, IS, PEP Home inhalers Mild obstructive sleep apnea 08/20/2014 Overview (10/24/2024): Complicates care Degenerative disc disease, lumbar 04/08/2014 02/17/2023 Resolved Problems Problem Noted Date Diagnosed Date Resolved Date SBO (small bowel obstruction) 10/19/2024 10/26/2024 Overview (10/24/2024): 10/21: s/p LONNIE (Daryl) Reg Diet Strict I/Os SBO (small bowel obstruction) 09/29/2024 09/29/2024 Overview (09/29/2024): 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 NGT NPO Electrolyte imbalance 09/29/20242024 Overview (09/29/2024): Monitor/trend Replete as needed Overweight (BMI 25.0-29.9) 09/29/2024 0 09/29/2024 Overview (09/29/2024): BMI 27.46 Abdominal pain, unspecified abdominal location 09/06/2024 09/29/2024 Overview (09/08/2024): See partial SBO Hypocalcemia 07/14/2023 09/08/2024 Small bowel obstruction 07/09/2023 06/12/2023 Overview (12/08/2023): Transition point appears to be at the stoma Red rubber in stoma for decompression, has had good results NG-tube if needed for symptomatic control Antiemetic Pain control NPO Fluids Pre-op evaluation 06/26/2023 09/08/2024 Altered mental status 04/10/2023 04/10/20232024 Anemia 04/10/2023 04/10/2023 09/08/2024 Cellulitis 04/10/2023 04/10/2023 09/08/2024 Edema 04/10/2023 04/10/2023 09/29/2024 Hematoma 04/10/2023 04/10/2023 09/29/2024 Hyperkalemia 04/10/2023 04/10/2023 09/08/2024 Numbness 04/10/2023 04/10/2023 09/29/2024 Obstipation 04/10/2023 04/10/2023 09/29/2024 Pleural effusion 04/10/2023 04/10/2023 09/29/2024 Sacroiliitis 04/10/2023 04/10/2023 09/29/2024 Sepsis 04/10/2023 04/10/2023 09/08/2024 SOB (shortness of breath) 04/10/2023 04/10/2023 Shoulder pain 04/10/2023 04/10/2023 09/08/2024 Urinary retention 04/10/2023 09/08/2024 Recurrent UTI 04/10/2023 09/08/2024 Complication of implanted vaginal mesh 04/10/2023 09/29/2024 Urinary tract infection with hematuria 03/29/2023 09/08/2024 Urinary tract infection in female 03/29/2023 09/08/2024 Nausea and vomiting, unspeci fied vomiting type 02/17/2023 09/08/2024 Pulmonary embolism, bilateral 10/08/2022 2024 Small bowel obstruction 08/26/2022 0301/2023 Overview (09/08/2022): S/P Ex-lap with lysis of adhesions on 08/30 (Kieran) Initial post-op pain controlled on DESK LIEUTENANT, d/c DESK LIEUTENANT on 09/06 Diet advanced slowly, tolerated well TPN started, now stopped Small bowel obstruction 06/25/202208/2022 Overview (06/26/2022): Vomiting and pain Pain continues to improve No nausea Stoma output continues Heart failure 06/25/2022 06/26/2022 Overview (06/25/2022): Home meds Incarcerated hernia 02/09/2022 02/11/20 22 Abdominal pain 12/31/2021 01/02/2022 Overview (12/31/2021): Possible UTI vs pSBO Admit to SGE Bowel rest, monitor ileostomy function, IV fluids Dysuria 12/31/2021 01/03/2022 Overview (12/31/2021): Cloudy urine, lower abdominal cramping UA and UCx pending Will treat for UTI YAJAIRA (acute kidney injury) 12/31/2021 Overview (12/31/2021): IVF hydration, monitor Cr, avoid nephrotoxins Altered bowel elimination du e to intestinal ostomy 11/08/2021 11/09/2021 Overview (11/08/2021): -Immodium Impaired mobility 11/06/2021 12/31/2021 Overview (11/06/2021): Acute rehab recs- declined and prefers home. Hypoxia 11/06/2021 11/08/2021 Overview (11/06/2021): Home Oxygen at home ad enrique Depression 11/04/2021 12/09/2023 Overview (08/26/2022): Home meds as appropriate Ileus 11/03/2021 12/31/2021 Overview (11/07/2021): Developed nausea and vomiting overnight 11/01, NG placed to suction for decompressed Reduced immodium frequency Clamp trial 11/03 - NG removed Continued nausea and vomiting 11/04, imodium and fiber discontinued 11/05 ROBF, CLD, ADAT 11/07 reg diet Malnutrition 10/27/2021 12/31/2021 Overview (11/05/2021): TPN started 10/27, discontinued 10/29 ADAT Intra-abdominal fluid collection 10/26/2021 11/01/2021 Overview (10/26/2021): - IR drain placed 10/24 - No growth to date Encounter for assessment for small bowel obstruciton 10/17/2021 10/21/2021 Small bowel obstruction 10/13/202101/23 Overview (02/10/2022): - Patient with decreased ostomy output and increasing abdominal tenderness, pain improving - NGT for decompression - AROBF Hypomagnesemia 10/13/2021 10/21/2021 Overview (10/13/2021): - IV replacement started in ED. - Follow-up labs. Acute kidney injury 10/13/2021 10/22/19 Overview (10/13/2021): - Likely from acute vomiting with onset of abdominal pain. - mIVF @ 75 mL/hr. Partial small bowel obstruction 10/13/2021 2024 Overview (09/29/2024): Decreased ileostomy output 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 Serial abd exams Conservative management NGT cLWSx NPO Urinary retention 03/29/2021 11/08/2021 Overview (10/27/2021): Bladder scan q8h Okay to I&O cath > 400 mL Urge incontinence 10/31/2020 02/17/2023 09/08/2024 Wound of back 07/26/2017 04/10/2023 09/08/2024 Cataract 08/20/2014 04/10/2023 09/29/2024 Obstructive chronic bronchitis 06/09/2014 04/10/2023 09/29/2024 Compression fracture 04/08/2014 04/10/2023 025 BRBPR (bright red blood per rectum) 03/22/201404/1009/08/2024 Overview (04/10/2023): Anal hemorrhage Encounters Date Type Department Care Team Description 11/27/2024 Refill [facility] [address] [place] [address] Vicky Alonzo, ANGLEINE Recurrent UTI 11/18/2024 Orders Only External Location [address] [place] [id number] Provider, External 11/18/2024 Orders Only External Location [address] [place] [phone] Provider, External 11/09/2024 Telephone [facility] Surgery [address] [place] [address] Linda Parham RN 11/05/2024 10:15 AM EDT Office Visit [facility] [address], [address] [place] [address] Farnaz Brito MD SBO (small bowel obstruction) (CMS/[facility]) (Primary Dx); Ileostomy present (CMS/HCC) 11/05/2024 Travel 10/21/2024 1:37 PM EDT Anesthesia Event [facility] [address] Ирина Tejeda CRNA Sullivan, Daniel J, DO 10/21/2024 12:30 PM EDT - 10/21/2024 3:00 PM EDT Surgery [facility] [address] [place] [address] Farnaz Brito MD LAPAROTOMY, EXPLORATORY, WITH LYSIS OF ADHESIONS 10/21/2024 Refill [facility] [address] [place] [phone] Vicky Alonzo, SNAKE CHARMER Recurrent UTI (Primary Dx) 10/20/2024 Travel 10/19/2024 Travel 10/18/2024 8:19 PM EDT - 10/26/2024 1:18 PM EDT Hospital Encounter [facility] [address] [place] [address] Margarito Sue MD Akpunonu, MD Reji Snyder Helen S, MD Wheelock, Brittany N, MD Bernard, Andrew C, MD SBO (small bowel obstruction) ([facility]) (Primary Dx) Discharge Disposition: Home or Self Care 10/18/2024 Travel 09/30/2024 Travel 09/29/2024 Travel 09/28/2024 10:24 PM EDT - 10/01/2024 2:15 PM EDT Hospital Encounter [facility] [address] [place] [address] Wilian Romano MD Wheelock, Brittany N, MD Reynolds, Jessica K, MD Nausea and vomiting, unspecified vomiting type (Primary Dx) Discharge Disposition: Home or Self Care 09/28/2024 Travel 09/09/2024 Travel 09/07/2024 Travel 09/06/2024 Travel 09/05/2024 8:24 PM EDT - 09/09/2024 1:11 PM EDT Hospital Encounter [facility] [address] [place] [address] Po Hall MD Cruz, Angelo A, MD Tucker, Brian K, DO Reynolds, Jessica K, MD Detelich, Danielle M, MD Abdominal pain, unspecified abdominal location (Primary Dx); SBO (small bowel obstruction) (CMS/HCC) Discharge Disposition: Home or Self Care 09/05/2024 Travel from Last 3 Months Immunizations Immunization Administration Dates Next Due Influenza, High-dose, Split Virus, Trivalent, Injectable, preservative free 05/29/2024 Influenza, injectable, quadr ivalent, preservative free 03/04/2023,05/02/2021,03/28/2020,2018,05/05/2018,03/28/2016 Influenza, seasonal, injecta ble, preservative free 05/05/2018,05/24/2017 Palette COVID-19 Vac cine (Purple Cap) 12+ 03/27/2021,03/06/2021 Pneumococcal 20-marcos Conj Vaccine 03/07/2023 Pneumococcal Conjugate PCV 13 06/15/2014 Rsvpref, Recombinant, Protei n Subunit, Adjuvent 12/03/2023 Tdap 01/15/2015 Family History Medical History Relation Name Comments Cerebral aneurysm Brother 1 Depression Brother 2 Hypertension Brother 3 Depression Daughter Alcohol abuse Father Cardiac disorder Father Conversions - Other Father cerebral infarction Depression Father Hypertension Father Alcohol abuse Mother Cardiac disorder Mother Conversions - Other Mother Drug act ion Depression Mother Uterine cancer Mother Cerebral aneurysm Sibling Conversions - Other Sister 1 Drug act ion Alcohol abuse Sister 2 Depression Sister 3 Hypertension Sister 4 Depression Son Anesthesia problems Neg Hx Malig Hyperthermia Neg Hx Relation Name Status Comments Brother 1 Brother 2 Brother 3 Daughter Father Mother Sibling Sister 1 Sister 2 Sister 3 Sister 4 Son Social History Tobacco Use Types Packs/Day Years Used Date Smoking Tobacco: Former Cigarettes Q uit: 2018 Smokeless Tobacco: Never Tobacco Cessation:Counseling Given: Not Answered Alcohol Use Standard Drinks/Week Comments Not Currently [...] place to sleep or slept in a retirement (including now)? No 07/15/2023 Housing Stability Vital Sign Answer Eef e Recorded In the last 12 months, was t here a time when you were not able to pay the mortgage or rent on time? No 10/23/2024 In the past 12 months, how m any times have you moved where you were living? 0 10/23/2024 At any time in the past 12 m [facility], were you homeless or living in a retirement (including now)? 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-PHYSICAL METEOROLOGIST) to steady your nerves or to get rid of a hangover? 0 12/07/2023 CAGE Questionnaire Score 0 024 Utilities Answer Date Recorded In the past 12 months has e [employer], gas, oil, or water company threatened to shut off services in your home? No 10/23/2024 PHQ-2A Answer Date Recorded Patient Health Questionnaire-2 Score 2 04/10/2023 Comments No Sex and Gender Information Value Date Recorded Sex Assigned at Female 10/17/2023 8:34 AM EDT Legal Sex Female 6:40 PM EDT Gender Identity Female 10/17/2023 8:34 AM EDT Sexual Orientation Not on file Last Filed Vital Signs Vital Sign Reading Time Taken Comments Blood Pressure 126/86 11/05/2024 10:19 AM EDT Pulse 94 11/05/2024 10:19 AM EDT Temperature 36.5 C (97.7 F) 11/05/2024 10:19 AM EDT Respiratory Rate 16 10/26/2024 3:23 AM EDT Oxygen Saturation 93% 10/26/2024 11:31 AM EDT Inhaled Oxygen Concentration - - Weight 60.9 kg (134 lb 3.2 oz) 11/05/2024 10:19 AM EDT Height 160 cm (5' 3 ) 11/05/2024 10:19 AM EDT Body Mass Index 23.77 11/05/2024 10:19 AM EDT Plan of Treatment Upcoming Encounters Date Type Department Care Team (Late st Contact Info) Description 12/03/2024 9:30 AM EDT Office Visit [facility] General Surgery [address], [address] [place] [address] Diogenes Al MD [address] [place] [phone] Health Maintenance Due Date Last Done Comments [facility]-Bone Density Scan 1955 [facility]-Medicare Annual Wellness (AWV) 1955 [facility]-Infant/Child/Adol SDOH Screenings 1955 [facility]-Zoster Vaccines (1 of 2) 1976 CT Colonography 2002 FIT-DNA 2002 FIT 2002 FOBT 2002 Sigmoidoscopy 2002 [facility]-Breast Cancer Screening 10/23/2007 [id number] Vaccine ( season) 2024 06/27/2022, 09/07/2021, 03/27/2021, Additional history exists [facility]-DTaP,Tdap,and Td Vaccines (2 - Td or Tdap) 01/15/2025 01/15/2015 [facility]-Depression Screening 03/20/2025 03/20/2024, 1011/2020 [facility]- SDOH Screenings 04/25/2025 [facility]-Adult SDOH Screenings 04/25/2025 10/23/2024 Colonoscopy 05/08/2027 05/08/2017, 04/20/2015 [facility]-Colorectal Cancer Screening 05/08/2027 [facility]-Pneumococcal Vaccine: 50+ Years Completed 03/07/2023, 06/15/2014 [facility]-RSV Vaccine: 60+ Years or Completed 12/03/2023 [facility]-Influenza Vaccine Completed 05/29/2024 , 03/04/2023, 05/02/2021, Additional history exists [facility]-Hepatitis C Screening Completed 2024, 07/09/2023, 10/13/2021, Additional history exists HPV Vaccines Aged Out No longer eligi ble based on patient's age to complete this topic [facility]-HIB Vaccines Aged Out No longer e ligible based on patient's age to complete this topic [facility]-Hepatitis A Vaccines Aged Out No longer eligible based on patient's age to complete this topic [facility]-IPV Vaccines Aged Out No longer e ligible based on patient's age to complete this topic [facility]-Rotavirus Vaccines Aged Out No lo nger eligible based on patient's age to complete this topic Procedures Procedure Name Priority Date/Time Associated Diagnosis Comments CT OUTSIDE IMAGES 11/18/2024 9:[address] THORACIC OUTSIDE IMAGES 11/18/2024 9:12 PM EDT PHOSPHORUS, PLASMA Routine 10/26/2024 11:09 AM EDT MAGNESIUM, PLASMA Routine 10/26/2024 11:09 AM EDT BASIC METABOLIC PANEL, PLASMA Routine 10/26/2024 11:09 AM EDT EXTRA TUBE LAVENDER TOP Routine 10/25/2024 1:08 PM EDT EXTRA TUBES Routine 10/25/2024 1:08 PM EDT PHOSPHORUS, PLASMA Add-On 10/25/2024 1: 08 PM EDT POTASSIUM, PLASMA Pending Discharge 10/25/2024 1:08 PM EDT PHOSPHORUS, PLASMA Routine 10/25/2024 11:16 AM EDT MAGNESIUM, PLASMA Routine 10/25/2024 11:16 AM EDT BASIC METABOLIC PANEL, PLASMA Routine 10/25/2024 11:16 AM EDT INSERT PERIPHERAL IV Routine 10/23/2024 10:25 AM EDT CBC W/O DIFFERENTIAL Routine 2024 12:12 AM EDT BASIC METABOLIC PANEL, PLASMA Routine 2024 12:12 AM EDT MAGNESIUM, PLASMA Routine 2024 12:12 AM EDT PHOSPHORUS, PLASMA Routine 2024 12:12 AM EDT ANESTHESIA ULTRASOUND GUIDED Routine 10/21/2024 2:17 PM EDT PB ANESTHESIA PLACEHOLDER Routine 10/21/2024 1:49 PM EDT CA AN ELECTIVE ENDOTRACHEAL AIRWAY Routine 10/21/2024 1:49 PM EDT LAPAROTOMY, EXPLORATORY, WITH LYSIS OF ADHESIONS [...] LACTATE, VENOUS STAT 10/18/2024 8:17 PM EDT LIPASE, PLASMA STAT 10/18/2024 8:17 PM EDT CBC W/O DIFFERENTIAL STAT 10/18/2024 8:17 PM EDT COMPREHENSIVE METABOLIC PANEL, PLASMA STAT 10/18/2024 8:17 PM EDT POCT GLUCOSE METER UNSOLICITED RESULTS Routine 09/30/2024 11:53 PM EDT INSERT PERIPHERAL IV STAT 09/30/2024 9:51 PM EDT XR GASTROGRAFFIN CHALLENGE Timed 09/30/2024 6:58 PM EDT POCT GLUCOSE METER UNSOLICITED RESULTS Routine 09/30/2024 5:26 PM EDT BASIC METABOLIC PANEL, PLASMA Routine 09/30/2024 3:52 AM EDT CBC W/O DIFFERENTIAL Routine 09/30/2024 3:52 AM EDT MAGNESIUM, PLASMA Routine 09/30/2024 3:5 2 AM EDT PHOSPHORUS, PLASMA Routine 09/30/2024 3: 52 AM EDT XR ABDOMEN 1 VIEW STAT 09/29/2024 11:05 AM EDT PHOSPHORUS, PLASMA Routine 09/29/2024 6: 21 AM EDT MAGNESIUM, PLASMA Routine 09/29/2024 6:2 1 AM EDT BASIC METABOLIC PANEL, PLASMA Routine 09/29/2024 6:21 AM EDT CBC W/O DIFFERENTIAL Routine 09/29/2024 6:21 AM EDT XR ABDOMEN 1 VIEW Routine 09/29/2024 6:2 0 AM EDT TROPONIN T, HIGH SENSITIVITY, 2 HOUR, PLASMA Timed 09/29/2024 1:[address] ABDOMEN PELVIS W IV CONTRAST STAT 09/29/2024 1:07 AM EDT SEND SARATH MESSAGE STAT 09/29/2024 12:39 AM EDT URINALYSIS MICROSCOPIC FOR UA REFLEX STAT 09/29/2024 12:39 AM EDT URINE BONILLA PANEL STAT 09/29/2024 12:39 AM EDT URINALYSIS WITH REFLEX MICROSCOPIC STAT 09/29/2024 12:39 AM EDT URINALYSIS WITH REFLEX MICROSCOPIC AND CULTURE STAT 09/29/2024 12:39 AM EDT URINE CULTURE STAT 09/29/2024 12:39 AM EDT TROPONIN T, HIGH SENSITIVITY, 0 HOUR, PLASMA, REFLEX TO 2 HOUR STAT 09/28/2024 11:00 PM EDT ECG ADULT STAT 09/28/2024 10:40 PM EDT LIPASE, PLASMA STAT 09/28/2024 9:59 PM EDT CBC WITH AUTO DIFFERENTIAL STAT 09/28/2024 9:59 PM EDT COMPREHENSIVE METABOLIC PANEL, PLASMA STAT 09/28/2024 9:59 PM EDT MAGNESIUM, PLASMA Routine 09/09/2024 5:0 0 AM EDT PHOSPHORUS, PLASMA Routine 09/09/2024 5: 00 AM EDT BASIC METABOLIC PANEL, PLASMA Routine 09/09/2024 5:00 AM EDT XR GASTROGRAFFIN CHALLENGE Timed 09/09/2024 12:51 AM EDT POCT GLUCOSE METER UNSOLICITED RESULTS Routine 09/08/2024 8:07 PM EDT INSERT PERIPHERAL IV Routine 09/08/2024 11:38 AM EDT CBC W/O DIFFERENTIAL Routine 09/08/2024 5:35 AM EDT BASIC METABOLIC PANEL, PLASMA Routine 09/08/2024 5:35 AM EDT MAGNESIUM, PLASMA Routine 09/08/2024 5:3 5 AM EDT PHOSPHORUS, PLASMA Routine 09/08/2024 5: 35 AM EDT XR GASTROGRAFFIN CHALLENGE Timed 09/07/2024 8:26 PM EDT INSERT PERIPHERAL IV STAT 09/07/2024 3:37 PM EDT URINALYSIS MICROSCOPIC FOR UA REFLEX Routine 09/07/2024 12:01 PM EDT URINALYSIS WITH REFLEX MICROSCOPIC Routine 09/07/2024 12:01 PM EDT PHOSPHORUS, PLASMA Routine 09/07/2024 3: 48 AM EDT MAGNESIUM, PLASMA Routine 09/07/2024 3:4 8 AM EDT BASIC METABOLIC PANEL, PLASMA Routine 09/07/2024 3:48 AM EDT CBC W/O DIFFERENTIAL Routine 09/07/2024 3:48 AM EDT XR ABDOMEN 1 VIEW STAT 09/06/2024 1:[address] ABDOMEN PELVIS WO IV CONTRAST STAT 09/05/2024 11:11 PM EDT ED HIV 1/2 ANTIBODY/ANTIGEN SCREEN WITH REFLEX TO HIV I/II DIFFERENTIATION STAT 09/05/2024 10:50 PM EDT ED PROTOCOL HIV 1/2 ANTIBODY/ANTIGEN SCREEN W/REFLEX TO HIV 1/2 ANTIBODY DIFFERENTIATION STAT 09/05/2024 10:50 PM EDT CBC WITH AUTO DIFFERENTIAL STAT 09/05/2024 10:50 PM EDT EXTRA TUBE LIGHT GREEN TOP Routine 09/05/2024 9:06 PM EDT EXTRA TUBES Routine 09/05/2024 9:06 PM EDT HEPATITIS C ANTIBODY - ED W/REFLEX TO HCV QUANT PCR STAT 09/05/2024 9:02 PM EDT LACTATE, VENOUS STAT 09/05/2024 9:02 PM EDT LIPASE, PLASMA STAT 09/05/2024 9:02 PM EDT COMPREHENSIVE METABOLIC PANEL, PLASMA STAT 09/05/2024 9:02 PM EDT COLONOSCOPY 05/08/2017 from Last 3 Months or Most Recently Relevant to Health Maintenance Results * CT OUTSIDE IMAGES (11/18/2024 9:17 PM EDT) Anatomical Region Laterality Modality Computed Tomogra phy 11/18/2024 9:17 PM EDT us External Provider IMG CT PROCEDURES Final Result * CT THORACIC OUTSIDE IMAGES (11/18/2024 9:12 PM EDT) Anatomical Region Laterality Modality Computed Tomogra phy 11/18/2024 9:12 PM EDT us External Provider IMG CT PROCEDURES Final Result * Phosphorus (10/26/2024 11:09 AM EDT) Only the most recent of10 resultswithin the time period is included. Phosphorus, Plasma 3.3 2.5 - 4.5 mg/dL 10/26/2024 12:02 PM EDT [facility] Blood Venous blood specimen / Unknown Venipuncture / Unknown 10/26/2024 11:09 AM EDT 10/26/2024 11:18 AM EDT Yuki Shankar APRN LAB BLOOD ORDERABLES Final Re sult Performing Organization Address [facility] [place] [address] * (ABNORMAL) Magnesium (10/26/2024 11:09 AM EDT) Only the most recent of9 resultswithin the time period is included. Magnesium, Plasma 1.7(L) 1.9 - 2.4 mg/dL 10/26/2024 12:02 PM EDT [facility] Blood Venous blood specimen / Unknown Venipuncture / Unknown 10/26/2024 11:09 AM EDT 10/26/2024 11:18 AM EDT Yuki Shankar SNAKE CHARMER LAB BLOOD ORDERABLES Final Re sult Performing Organization Address City/[facility] Co de Phone Number [facility] [address] [place], [place] [id number] * (ABNORMAL) Basic metabolic panel (10/26/2024 11:09 AM EDT) Only the most recent of9 resultswithin the time period is included. Glucose, Plasma 113(H) 74 - 99 mg/dL 10/26/2024 12:02 PM EDT [facility] BUN, Plasma 9 8 - 23 mg/dL 10/26/2024 12:02 PM EDT [facility] Creatinine, Plasma 0.74 0.60 - 1.10 mg/dL 10/26/2024 12:02 PM EDT [facility] BUN/Creatinine Ratio 12 10/26/2024 12:02 PM EDT [facility] Sodium, Plasma 136 136 - 145 mmol/L 10/26/2024 12:02 PM EDT [facility] Potassium, Plasma 3.8 3.6 - 4.9 mmol/L 10/26/2024 12:02 PM EDT [facility] Chloride, Plasma 101 97 - 107 mmol/L 10/26/2024 12:02 PM EDT [facility] CO2, Plasma 25 22 - 29 mmol/L 10/26/2024 12:02 PM EDT [facility] Anion Gap 10 6 - 16 mmol/L 10/26/2024 12:02 PM EDT [facility] Total Calcium, Plasma 8.2(L) 8.9 - 10.2 mg/dL 10/26/2024 12:02 PM EDT [facility] eGFRcr 88.8 mL/min/1.7 3m*2 10/26/2024 12:02 PM EDT [facility] Comment:Reported eGFRcr in m L/min/1.73m2 is based the CKD-EPI 2020 equation that does not use a race coefficient. Blood Venous blood specimen / Unknown Venipuncture / Unknown 10/26/2024 11:09 AM EDT 10/26/2024 11:18 AM EDT us Yuki Shankar APRN LAB BLOOD ORDERABLES Final Re sult [facility] [address] [place] [address] * Lavender Top (10/25/2024 1:08 PM EDT) Extra Hold for add-ons 10/25/2024 4:02 PM EDT [facility] Comment:Auto resulted. Blood Venous blood specimen / Unknown 10/25/2024 1:08 PM EDT 10/25/2024 2:00 PM EDT Farnaz Brito MD LAB BLOOD ORDERAB[place] [address] * Potassium (10/25/2024 1:08 PM EDT) Pathologist [facility] Potassium, Plasma 4.0 3.6 - 4.9 mmol/L 10/25/2024 1:46 PM EDT [facility] Blood Venous blood specimen / Unknown Venipuncture / Unknown 10/25/2024 1:08 PM EDT 10/25/2024 1:19 PM EDT Farnaz Brito MD LAB BLOOD ORDERABLES Yvonne l Result Performing Organization Address City/[facility]/[place] [address] * PERIPHERAL IV (SMARTFORM LINK) (10/23/2024 10:25 AM EDT) Only the most recent of6 resultswithin the time period is included. Narrative Angely Linton, RN - 10/23/2024 10:25 [...] CBC W/O Differential (2024 12:12 AM EDT) Only the most recent of6 resultswithin the time period is included. WBC Count 7.15 3.70 - 10.30 10*3/uL LAB HEMATOLOGY METHOD 2024 12:24 AM EDT [facility] RBC Count 4.27 3.90 - 5.20 10*6/uL LAB HEMATOLOGY METHOD 2024 12:24 AM EDT [facility] HGB 11.7 11.2 - 15.7 g/dL LAB HEMATOLOGY METHOD 2024 12:24 AM EDT [facility] HCT 38.6 34.0 - 45.0 % LAB HEMATOLOGY METHOD 2024 12:24 AM EDT [facility] Platelet Count 207 155 - 369 10*3/uL LAB HEMATOLOGY METHOD 2024 12:24 AM EDT [facility] MCV 90 79 - 98 fL LAB HEMATOLOGY METHOD 2024 12:24 AM EDT [facility] MCH 27.4 26.0 - 32.0 pg LAB HEMATOLOGY METHOD 2024 12:24 AM EDT [facility] MCHC 30.3(L) 30.7 - 35.5 g/dL LAB HEMATOLOGY METHOD 2024 12:24 AM EDT [facility] RDW 15.8(H) 11.5 - 14.5 % LAB HEMATOLOGY METHOD 2024 12:24 AM EDT [facility] MPV 11.2 8.8 - 12.5 fL LAB HEMATOLOGY METHOD 2024 12:24 AM EDT [facility] nRBC 0.0 <=0.0 per 100 WBCs LAB HEMATOLOGY METHOD 2024 12:24 AM EDT [facility] Blood Venous blood specimen / Unknown Venipuncture / Unknown 2024 12:12 AM EDT 2024 12:17 AM EDT Rebecca Cadena SNAKE CHARMER LAB BLOOD ORDERABLES Yvonne dukes Result [facility] [address] [place] [address] * ANESTHESIA ULTRASOUND GUIDED (10/21/2024 2:17 PM EDT) Narrative Ирина Tejeda CRNA - 10/21/2024 2:17 PM EDT Ирина Tejeda CRNA 10/21/2024 2:18 PM Peripheral IV Inserted by: Ирина Tejeda CRNA Placement Needle size: 18 G Location: forearm Local anesthetic: none Site prep: alcohol Technique: ultrasound guided Attempts: 1 us Jonatan Ashraf MD ANESTHESIA ORDERABLES Final R esult * CA AN ELECTIVE ENDOTRACHEAL AIRWAY, PB ANESTHESIA PLACEHOLDER (10/21/2024 1:49 PM EDT) Narrative Ирина Tejeda CRNA - 10/21/2024 1:49 PM EDT Ирина Tejeda CRNA 10/21/2024 2:20 PM Airway Date/Time: 10/21/2024 1:49 PM Reason: elective Airway not difficult General Information and Staff Patient location during procedure: OR CROSSTIE INSPECTOR: Ирина Tejeda CRNA Performed: KRISTI Patient Condition [...] MD ANESTHESIA ORDERABLES Final R esult * Type and Screen (10/21/2024 1:16 PM EDT) Pathologist [facility] ABO/Rh O Positive 10/21/2024 12:32 PM EDT B[facility] Antibody Screen Negative 10/21/2024 12:32 PM EDT [facility] Specimen Expiration 10/24/2024 23:59 10/21/2024 12:32 PM EDT [facility] Blood Venous blood specimen / Unknown Venipuncture / Unknown 10/21/2024 1:16 PM EDT 10/21/2024 2:10 PM EDT us Precious Alonzo MD LAB BLOOD BANK TEST ORDERABLE S Final Result Performing Organization Address City/[facility] Co de Phone Number BLOOD BANK [address] [place] [address], * POCT glucose meter (10/21/2024 5:58 AM EDT) Only the most recent of8 resultswithin the time period is included. [facility] POCT Glucose 90 74 - 99 mg/dL 10/21/2024 6:00 AM EDT [facility] Comment:Accuracy of [...] for testing. Comment 10/21/2024 6:00 AM EDT [facility] Ski Maker ID Cheng Downing 6:00 AM EDT [facility]ALTH[facility]ARE LAB Device ID [id number] 10/21/2024 6:00 AM EDT [facility] Specimen Type POC Capillary 10/21/2024 6:00 AM EDT [facility] Blood Capillary blood specimen / Unknown 10/21/2024 5:58 AM EDT 10/21/2024 6:00 AM EDT Farnaz Brito MD LAB POINT OF CARE TEST DOCKED DEVICE UNSOLICITED RESULTS Final Result Performing Organization Address City/[facility]/ZIP Co de Phone Number [facility] [address] [place] [address] * XR Gastrograffin Challenge (10/20/2024 8:53 AM EDT) Only the most recent of4 resultswithin the time period is included. Anatomical Region Laterality Modality Body Digital Radiogra [...] López Dick MD on 10/20/2024 9:32 AM us Farnaz Brito MD IMG XR PROCEDURES Final R esult * XR Abdomen 1 View (10/19/2024 2:27 AM EDT) Only the most recent of4 resultswithin the time period is included. Anatomical Region Laterality Modality Body Digital Radiogra [...] No. COMMUNICATION: Per this written report. An Haptik secured message was sent to the responding [...] No. COMMUNICATION: Per this written report. An Haptik secured message was sent to the responding clinician, Aung Garcia MD, on 10/19/2024 2:34 AM. Drafted by Vinay Church MD on 10/19/2024 2:28 AM Final report signed by Vinay Church MD on 10/19/2024 2:34 AM Little Mendoza MD IMG XR PROCEDURES Final Result * CT Abdomen Pelvis w IV Contrast (10/18/2024 11:01 PM EDT) Only the most recent of2 resultswithin the time period is included. Anatomical Region Laterality Modality Abdomen, Pelvis Computed Tomogra phy Impressions 10/18/2024 11:40 PM EDT 1. Similar to prior there are multiple loops of dilated small bowel with similar transition point in the left lower abdomen favored to represent at least partial obstruction. CRITICAL RESULT: No COMMUNICATION: These findings were discussed via secure chat with JUNE MARINELLI on 10/18/2024 11:21 PM by [place] [...] findings were discussed via secure chat with JUNE MARINELLI on10/18/2024 11:21 PM by [place] Ricci [...] Marroquin MD on 10/18/2024 11:40 PM us June Marinelli DO IMG CT PROCEDURES Final Resul t * (ABNORMAL) Troponin T, High Sensitivity, 2 Hour, Plasma (10/18/2024 10:45 PM EDT) Only the most recent of2 resultswithin the time period is included. Troponin T, High Sensitivity, 2 Hour 24(H) <14 ng/L 10/18/2024 11:10 PM EDT [facility] Troponin Delta 1 <10 ng/L 10/18/2024 11:10 PM EDT [facility] Troponin Delta Interpretation Not Significant 10/18/2024 11:10 PM EDT [facility] Comment:Not Significant. No acute change in troponin observed between the baseline and 2 hour samples. Blood Venous blood specimen / Unknown Venipuncture / Unknown 10/18/2024 10:45 PM EDT 10/18/2024 10:46 PM EDT us [employer] DO LAB BLOOD ORDERABLES Final Re sult [facility] [address] [place] [address] * EKG now - STAT (adult) (10/18/2024 8:34 PM EDT) Only the most recent of2 resultswithin the time period is included. EKG DIAGNOSIS CLASS Abnormal MUSE ECG Ventricular Rate 93 BPM MUSE ECG Atrial Rate 93 BPM MUSE ECG CA Interval 150 ms MUSE ECG QRSD Interval 70 ms MUSE ECG QT Interval 352 ms MUSE ECG QTC Interval 437 ms MUSE ECG P [place] 82 degrees MUSE ECG R [place] 12 degrees MUSE ECG T Wave [place] 60 degrees MUSE ECG Diagnosis Normal sinus rhythm MUSE ECG Diagnosis Low voltage QRS MUSE ECG Diagnosis Cannot rule out Anterior infarct , age undetermined MUSE ECG Diagnosis Abnormal ECG MUSE ECG Diagnosis MUSE ECG Diagnosis Confirmed by Grzegorz Butcher ([id number]) on 10/19/2024 12:57:13 PM MUSE ECG 10/18/2024 8:34 PM EDT 10/19/2024 12:57 PM EDT [employer] [place] DO ECG ORDERABLES Final Result Performing Organization Address City/[facility]/ZIP Co de Phone Number MUSE ECG * XR Chest 1 View [...] Giorgio Cook MD on 10/18/2024 9:07 PM us June Marinelli DO IMG XR PROCEDURES Final Resul t * (ABNORMAL) Troponin now and 120 min (10/18/2024 8:17 PM EDT) Only the most recent of2 resultswithin the time period is included. Troponin T, High Sensitivity, 0 Hour 23(H) <14 ng/L 10/18/2024 8:51 PM EDT [facility] Blood Venous blood specimen / Unknown Venipuncture / Unknown 10/18/2024 8:17 PM EDT 10/18/2024 8:22 PM EDT [employer] LAB BLOOD ORDERABLES Final Re sult Performing Organization Address City/[facility] Co de Phone Number [facility] [address] [place] [address] * Lactic acid, venous (10/18/2024 8:17 PM EDT) Only the most recent of2 resultswithin the time period is included. Pathologist [facility] Lactate, Venous, Whole Blood 1.0 0.5 - 2.2 mmol/L LAB HEMATOLOGY METHOD 10/18/2024 8:29 PM EDT [facility] Blood Venous blood specimen / Unknown Venipuncture / Unknown 10/18/2024 8:17 PM EDT 10/18/2024 8:26 PM EDT [employer] LAB BLOOD ORDERABLES Final Re sult Performing Organization Address [facility] Co de Phone Number [facility] [address] [place] [address] * Lipase (10/18/2024 8:17 PM EDT) Only the most recent of3 resultswithin the time period is included. Pathologist [facility] Lipase, Plasma 20 19 - 63 U/L 10/18/2024 8:51 PM EDT [facility] Blood Venous blood specimen / Unknown Venipuncture / Unknown 10/18/2024 8:17 PM EDT 10/18/2024 8:22 PM EDT [employer] LAB BLOOD ORDERABLES Final Re sult Performing Organization Address City/[facility] Co de Phone Number [facility] [address] [place] [phone] * (ABNORMAL) CMP (10/18/2024 8:17 PM EDT) Only the most recent of3 resultswithin the time period is included. Glucose, Plasma 112(H) 74 - 99 mg/dL 10/18/2024 8:51 PM EDT [facility] BUN, Plasma 9 8 - 23 mg/dL 10/18/2024 8:51 PM EDT [facility] Creatinine, Plasma 0.88 0.60 - 1.10 mg/dL 10/18/2024 8:51 PM EDT [facility] BUN/Creatinine Ratio 10 10/18/2024 8:51 PM EDT [facility] Sodium, Plasma 141 136 - 145 mmol/L 10/18/2024 8:51 PM EDT [facility] Potassium, Plasma 4.1 3.6 - 4.9 mmol/L 10/18/2024 8:51 PM EDT [facility] Chloride, Plasma 104 97 - 107 mmol/L 10/18/2024 8:51 PM EDT [facility] CO2, Plasma 21(L) 22 - 29 mmol/L 10/18/2024 8:51 PM EDT [facility] Anion Gap 16 6 - 16 mmol/L 10/18/2024 8:51 PM EDT [facility] Total Calcium, Plasma 9.3 8.9 - 10.2 mg/dL 10/18/2024 8:51 PM EDT [facility] Total Protein 7.4 6.3 - 7.9 g/dL 10/18/2024 8:51 PM EDT [facility] Albumin, Plasma 3.4(L) 3.5 - 5.2 g/dL 10/18/2024 8:51 PM EDT [facility] AST, Plasma 22 10 - 35 U/L 10/18/2024 8:51 PM EDT [facility] Comment:Hemolyzed, result ma y be falsely increased. ALT, Plasma 11 10 - 35 U/L 10/18/2024 8:51 PM EDT [facility] Alkaline Phosphatase, Plasma 82 46 - 142 U/L 10/18/2024 8:51 PM EDT [facility] Total Bilirubin, Plasma 0.3 0.2 - 1.1 mg/dL 10/18/2024 8:51 PM EDT [facility] eGFRcr 72.6 mL/min/1.7 3m*2 10/18/2024 8:51 PM EDT [facility] Comment:Reported eGFRcr in m L/min/1.73m2 is based the CKD-EPI 2020 equation that does not use a race coefficient. Blood Venous blood specimen / Unknown Venipuncture / Unknown 10/18/2024 8:17 PM EDT 10/18/2024 8:22 PM EDT June Marinelli DO LAB BLOOD ORDERABLES Final Re sult Performing Organization Address [facility] Co de Phone Number [facility] [address] [place] [address] * SEND SARATH MESSAGE (09/29/2024 12:39 AM EDT) Urine Urine specimen obtained by clean catch procedure / Unknown Non-blood Collection / Unknown 09/29/2024 12:39 AM EDT 09/29/2024 12:51 AM EDT Mel Gilliam MD LAB URINE ORDERABLES Final Re sult Performing Organization Address [facility] Co de Phone Number [facility] [address] [place] [address] * Urine Bonilla Panel (09/29/2024 12:39 AM EDT) Extra Sent for Culture 09/29/2024 2:02 AM EDT [facility] Urine Urine specimen obtained by clean catch procedure / Unknown Non-blood Collection / Unknown 09/29/2024 12:39 AM EDT 09/29/2024 12:51 AM EDT Mel Gilliam MD LAB URINE ORDERABLES Final Re sult Performing Organization Address [facility] de Phone Number [facility] [address] [place] [address] * Urinalysis Microscopic Examination (09/29/2024 12:39 AM EDT) Only the most recent of2 resultswithin the time period is included. Urine Urine specimen obtained by clean catch procedure / Unknown Non-blood Collection / Unknown 09/29/2024 12:39 AM EDT 09/29/2024 12:51 AM EDT us Mel Gilliam MD LAB URINE ORDERABLES Final Re sult [facility] [address] [place] [address] * (ABNORMAL) Urinalysis with reflex microscopic (Culture NOT Included) (09/29/2024 12:39 AM EDT) Only the most recent of2 resultswithin the time period is included. Color, Urine Dark Yellow LAB URINALYSIS - AUTOMATED METHOD 09/29/2024 1:20 AM EDT [facility] Clarity, Urine Cloudy LAB URINALYSIS - AUTOMATED METHOD 09/29/2024 1:20 AM EDT [facility] Spec [place], Urine 1.024 1.005 - 1.030 LAB URINALYSIS - AUTOMATED METHOD 09/29/2024 1:20 AM EDT [facility] pH, Urine 5.5 5.0 - 8.0 LAB URINALYSIS - AUTOMATED METHOD 09/29/2024 1:20 AM EDT [facility] Protein, Urine 30(A) Negative mg/dL LAB URINALYSIS - AUTOMATED METHOD 09/29/2024 1:20 AM EDT [facility] Glucose, Urine Negative Negative mg/dL LAB URINALYSIS - AUTOMATED METHOD 09/29/2024 1:20 AM EDT [facility] Ketones, Urine Trace(A) Negative mg/dL LAB URINALYSIS - AUTOMATED METHOD 09/29/2024 1:20 AM EDT [facility] Blood, Urine Trace(A) Negative LAB URINALYSIS - AUTOMATED METHOD 09/29/2024 1:20 AM EDT [facility] Bilirubin, Urine Small(A) Negative LAB URINALYSIS - AUTOMATED METHOD 09/29/2024 1:20 AM EDT [facility] Urobilinogen, Urine 0.2 0.2 to 1.0 mg/dL LAB URINALYSIS - AUTOMATED METHOD 09/29/2024 1:20 AM EDT [facility] Leukocytes, Urine Moderate(A) Negative LAB URINALYSIS - AUTOMATED METHOD 09/29/2024 1:20 AM EDT [facility] Nitrite, Urine Positive(A) Negative LAB URINALYSIS - AUTOMATED METHOD 09/29/2024 1:20 AM EDT [facility] RBC, Urine 4 - 10(A) 0 to 3 /HPF LAB URINALYSIS - AUTOMATED METHOD 09/29/2024 1:20 AM EDT [facility] WBC, Urine >50(A) 0 to 5 /HPF LAB URINALYSIS - AUTOMATED METHOD 09/29/2024 1:20 AM EDT [facility] Squamous Epithelial Cells 3 - 5 0 to 5 /HPF LAB URINALYSIS - AUTOMATED METHOD 09/29/2024 1:20 AM EDT [facility] Hyaline Casts 3 - 5 0 to 5 /LPF LAB URINALYSIS - AUTOMATED METHOD 09/29/2024 1:20 AM EDT [facility] Bacteria, Urine Present Negative LAB URINALYSIS - AUTOMATED METHOD 09/29/2024 1:20 AM EDT [facility] Renal Tubular Cells Present Absent 09/29/2024 1:20 AM EDT [facility] Transitional Epithelial Cells Present Absent 09/29/2024 1:20 AM EDT [facility] Urine Urine specimen obtained by clean catch procedure / Unknown Non-blood Collection / Unknown 09/29/2024 12:39 AM EDT 09/29/2024 12:51 AM EDT Narrative [facility] - 09/29/2024 1:20 AM EDT Performed by manual method us Mel Gilliam MD LAB URINE ORDERABLES Final Re sult [facility] [address] [place] [address] * Urine Culture (09/29/2024 12:39 AM EDT) Culture >=100,000 CFU/mL Mixed urogenital , fecal, or skin maria eugenia present. 10/01/2024 7:29 AM EDT [facility] Comment:This is a corrected result. Previous organism was Gram Negative Real on 09/30/2024 at 1251 EDT. Urine Urine specimen obtained by clean catch procedure / Unknown Non-blood Collection / Unknown 09/29/2024 12:39 AM EDT 09/29/2024 12:51 AM EDT us Mel Gilliam MD LAB MICROBIOLOGY - GENERAL OR DERABLES Final Result [facility] [address] [place] [address] * (ABNORMAL) CBC w/diff (09/28/2024 9:59 PM EDT) Only the most recent of2 resultswithin the time period is included. WBC Count 8.66 3.70 - 10.30 10*3/uL LAB HEMATOLOGY METHOD 09/28/2024 10:06 PM EDT [facility] RBC Count 4.63 3.90 - 5.20 10*6/uL LAB HEMATOLOGY METHOD 09/28/2024 10:06 PM EDT [facility] HGB 13.2 11.2 - 15.7 g/dL LAB HEMATOLOGY METHOD 09/28/2024 10:06 PM EDT [facility] HCT 40.2 34.0 - 45.0 % LAB HEMATOLOGY METHOD 09/28/2024 10:06 PM EDT [facility] Platelet Count 209 155 - 369 10*3/uL LAB HEMATOLOGY METHOD 09/28/2024 10:06 PM EDT [facility] MCV 87 79 - 98 fL LAB HEMATOLOGY METHOD 09/28/2024 10:06 PM EDT [facility] MCH 28.5 26.0 - 32.0 pg LAB HEMATOLOGY METHOD 09/28/2024 10:06 PM EDT [facility] MCHC 32.8 30.7 - 35.5 g/dL LAB HEMATOLOGY METHOD 09/28/2024 10:06 PM EDT [facility] RDW 15.9(H) 11.5 - 14.5 % LAB HEMATOLOGY METHOD 09/28/2024 10:06 PM EDT [facility] MPV 10.4 8.8 - 12.5 fL LAB HEMATOLOGY METHOD 09/28/2024 10:06 PM EDT [facility] nRBC 0.0 <=0.0 per 100 WBCs LAB HEMATOLOGY METHOD 09/28/2024 10:06 PM EDT [facility] Differential Type Automated LAB HEMATOLOGY METHOD 09/28/2024 10:06 PM EDT [facility] Neutrophils % 81 % LAB HEMATOLOGY METHOD 09/28/2024 10:06 PM EDT [facility] Lymphocytes % 13 % LAB HEMATOLOGY METHOD 09/28/2024 10:06 PM EDT [facility] Monocytes % 6 % LAB HEMATOLOGY METHOD 09/28/2024 10:06 PM EDT [facility] Eosinophils % 0 % LAB HEMATOLOGY METHOD 09/28/2024 10:06 PM EDT [facility] Basophils % 0 % LAB HEMATOLOGY METHOD 09/28/2024 10:06 PM EDT [facility] Immature Granulocytes % 0 % LAB HEMATOLOGY METHOD 09/28/2024 10:06 PM EDT [facility] Neutrophils Absolute 6.93(H) 1.60 - 6.10 10*3/uL LAB HEMATOLOGY METHOD 09/28/2024 10:06 PM EDT [facility] Lymphocytes Absolute 1.12(L) 1.20 - 3.90 10*3/uL LAB HEMATOLOGY METHOD 09/28/2024 10:06 PM EDT [facility] Monocytes Absolute 0.54 0.30 - 0.90 10*3/uL LAB HEMATOLOGY METHOD 09/28/2024 10:06 PM EDT [facility] Eosinophils Absolute 0.01 0.00 - 0.50 10*3/uL LAB HEMATOLOGY METHOD 09/28/2024 10:06 PM EDT [facility] Basophils Absolute 0.03 0.00 - 0.10 10*3/uL LAB HEMATOLOGY METHOD 09/28/2024 10:06 PM EDT [facility] Immature Granulocytes Absolute 0.03 0.00 - 0.06 10*3/uL LAB HEMATOLOGY METHOD 09/28/2024 10:06 PM EDT [facility] Blood Venous blood specimen / Unknown Venipuncture / Unknown 09/28/2024 9:59 PM EDT 09/28/2024 10:03 PM EDT [facility] - 09/28/2024 10:06 PM EDT Therapeutic decision making should be based on absolute values, rather than percentages. us Mel Gilliam MD LAB BLOOD ORDERABLES Final Re sult [facility] [address] [place] [address] * CT Abdomen Pelvis wo IV Contrast (09/05/2024 11:11 PM EDT) Anatomical Region Laterality Modality Abdomen, Pelvis Computed Tomogra phy Impressions 09/06/2024 12:29 AM EDT 1. Postsurgical changes from colectomy with similar appearance of the rectal stump and presacral soft tissue thickening. There are findings concerning for at least partial small bowel obstruction, with transition point noted in the lower left pelvis. CRITICAL RESULT: No. COMMUNICATION: Per this written report. Preliminary report signed by King Field DO on 09/06/2024 12:21 AM By electronically signing this report, I, the attending physician, attest that I have personally reviewed the images/data for the above examination(s) and agree with the final edited report. Drafted by King Field DO on 09/06/2024 12:05 AM Final report signed by Dominguez Marroquin MD on 09/06/2024 12:29 AM Narrative 09/06/2024 12:29 AM EDT CLINICAL INDICATION: Abdominal pain, acute, nonlocalized TECHNIQUE: Imaging of the abdomen and pelvis was performed from lung bases through pubic symphysis, using spiral technique, without administration of IV contrast. Reformatted images in the coronal and sagittal planes were generated from the axial data set to facilitate diagnostic accuracy. Total DLP (Dose-Length Product): 374.19 mGy.cm. Please note: The reported value represents the total of one or more individual components during the CT acquisition on this date and at this time, and as such, the same value may appear in more than one CT report depending on the interpreting/reporting physicians. COMPARISON: CT abdomen pelvis December 07, 2023 FINDINGS: Lack of IV contrast limits evaluation of abdominal and pelvic organs. Lung Bases: Bilateral lower lobe linear subsegmental atelectasis Other: Multivessel coronary artery calcifications. Liver/Gallbladder/Biliary System: The liver demonstrates no focal lesion. Prior cholecystectomy. Similar mild intra and moderate extrahepatic biliary ductal dilation, presumably related to prior cholecystectomy. Spleen: The spleen is normal. Pancreas: The pancreas is normal. Adrenals: The adrenals are morphologically unremarkable. Kidneys: The kidneys are normal. No renal or ureteral calculi. No hydronephrosis. Bowel/Mesentery: Postsurgical changes from prior colectomy. Rectal stump is redemonstrated with similar previous sacral soft tissue thickening. There are mildly dilated loops of small bowel with apparent transition point in the lower left pelvis (series 5, image 63). Vessels/Lymph Nodes: There is a moderate to severe amount of calcified atherosclerotic plaque involving the abdominal aorta and common iliac arteries. No lymphadenopathy within the abdomen or pelvis. Fluid Survey: No free fluid in the abdomen. No free fluid in the pelvis. Pelvis: Bladder is decompressed. Prior hysterectomy. No suspicious adnexal masses. Body Wall: Postsurgical changes from right lower quadrant ileostomy postsurgical changes in the ventral abdomen. Mild body wall edema. Bones: Similar appearance of T12 superior end plate compression deformity. Mild degenerative changes of the spine. Procedure Note Dominguez Marroquin MD - 09/06/2024 CLINICAL INDICATION: Abdominal pain, acute, nonlocalized TECHNIQUE: Imaging of the abdomen and pelvis was performed from lung bases throughpubic symphysis, using spiral technique, without administration of IVcontrast. Reformatted images in the coronal and sagittal planes weregenerated from the axial data set to facilitate diagnostic accuracy. Total DLP (Dose-Length Product): 374.19 mGy.cm. Please note: The reportedvalue represents the total of one or more individual components during theCT acquisition on this date and at this time, and as such, the same valuemay appear in more than one CT report depending on theinterpreting/reporting physicians. COMPARISON: CT abdomen pelvis December 07, 2023 FINDINGS: Lack of IV contrast limits evaluation of abdominal and pelvic organs. Lung Bases: Bilateral lower lobe linear subsegmental atelectasis Other: Multivessel coronary artery calcifications. Liver/Gallbladder/Biliary System: The liver demonstrates no focal lesion.Prior cholecystectomy. Similar mild intra and moderate extrahepaticbiliary ductal dilation, presumably related to prior cholecystectomy. Spleen: The spleen is normal. Pancreas: The pancreas is normal. Adrenals: The adrenals are morphologically unremarkable. Kidneys: The kidneys are normal. No renal or ureteral calculi. Nohydronephrosis. Bowel/Mesentery: Postsurgical changes from prior colectomy. Rectal stumpis redemonstrated with similar previous sacral soft tissue thickening.There are mildly dilated loops of small bowel with apparent transitionpoint in the lower left pelvis (series 5, image 63). Vessels/Lymph Nodes: There is a moderate to severe amount of calcifiedatherosclerotic plaque involving the abdominal aorta and common iliacarteries. No lymphadenopathy within the abdomen or pelvis. Fluid Survey: No free fluid in the abdomen. No free fluid in the pelvis. Pelvis: Bladder is decompressed. Prior hysterectomy. No suspicious adnexalmasses. Body Wall: Postsurgical changes from right lower quadrant ileostomypostsurgical changes in the ventral abdomen. Mild body wall edema. Bones: Similar appearance of T12 superior end plate compression deformity.Mild degenerative changes of the spine. IMPRESSION: 1. Postsurgical changes from colectomy with similar appearance of therectal stump and presacral soft tissue thickening. There are findingsconcerning for at least partial small bowel obstruction, with transitionpoint noted in the lower left pelvis. CRITICAL RESULT: No. COMMUNICATION: Per this written report. Preliminary report signed by King Field DO on 09/06/2024 12:21 AM By electronically signing this report, I, the attending physician, attestthat I have personally reviewed the images/data for the aboveexamination(s) and agree with the final edited report. Drafted by King Field DO on 09/06/2024 12:05 AM Final report signed by Dominguez Marroquin MD on 09/06/2024 12:29 AM us King Paniagua MD IMG CT PROCEDURES Final Res ult * ED HIV 1/2 Antibody/Antigen Screen w/Reflex to HIV 1/2 Differentiation (09/05/2024 10:50 PM EDT) HIV 1 & 2 Antibody/Antigen Screen Non Reactive Non Reactive 09/05/2024 11:40 PM EDT [facility] Comment:Screening for HIV 1 & 2 antibodies, and P24 antigen is NONREACTIVE. No confirmatory testing is required. Blood Venous blood specimen / Unknown Venipuncture / Unknown 09/05/2024 10:50 PM EDT 09/05/2024 10:59 PM EDT King Paniagua MD LAB BLOOD ORDERABLES Final Result [facility] [address] [place] [address] * Light Green Top (09/05/2024 9:06 PM EDT) [facility] Extra Hold for add-ons 09/06/2024 12:01 AM EDT [facility] Comment:Auto resulted. Blood Venous blood specimen / Unknown 09/05/2024 9:06 PM EDT 09/05/2024 9:06 PM EDT King Paniagua MD LAB BLOOD ORDERABLES Final Result Performing Organization Address City/[facility]/ZIP Co de Phone Number [facility] [address] [place] [address] * Hepatitis C Antibody - ED (09/05/2024 9:02 PM EDT) [facility] Hepatitis C Antibody Negative Negative 09/05/2024 10:04 PM EDT [facility] Blood Venous blood specimen / Unknown Venipuncture / Unknown 09/05/2024 9:02 PM EDT 09/05/2024 9:14 PM EDT King Paniagua MD LAB BLOOD ORDERABLES Final Result Performing Organization Address [facility] Co de Phone Number [facility] [address] [place] [address] * COLONOSCOPY (05/08/2017) Anatomical Region Laterality Modality Endoscopy Narrative 05/08/2017 Ordered by an unspecified provider. Historical Provider GI PROCEDURE ORDERABLES F inal Result from Last 3 Months or Most Recently Relevant to Health Maintenance Insurance MEDICAID-[place] [employer] MEDICARE Advance Directives * Full Code (Latest Code Status on File) Date Activated Date Inactivated Comments 10/19/2024 1:06 AM 10/26/2024 3:24 PM Question Answer Comments I have reviewed the capacity from the link above and, if needed, have updated to appropriate status: Yes * Full Code Date Activated Date Inactivated Comments 09/29/2024 4:08 AM 10/01/2024 4:15 PM * Full Code Date Activated Date Inactivated Comments 09/06/2024 1:54 AM 09/09/2024 3:17 PM * Full Code Date Activated Date Inactivated Comments 12/07/2023 3:22 PM 12/09/2023 7:28 PM Question Answer Comments Patient has decision-making capacity? Yes * Full Code Date Activated Date Inactivated Comments 10/17/2023 3:21 PM 10/18/2023 5:55 PM Question Answer Comments Patient has decision-making capacity? Yes Care Teams Industrial Spray Painter Relationship Specialty Start Date End Date Roman Medina MD PCP - General 06/24/22 Lazarus North MD [address] [place] [address] 06/24/22
--- OUTSIDE RECORDS SUMMARY | 2024-12-03 07:40 | XMS_ITS | Encounter Summary ---
Author Organization Healthcare Address [address] [place] [address] Care Team Providers Care Foiling Machine Operator Name Role Phone Roman Medina MD Primary Care Provider [phone] Lazarus North MD Unavailable [phone] Encounter Details Date Type Department Care Team (Late st Contact Info) Description 11/18/2024 Orders Only External Location [address] [place] [address] Provider, External Social History Tobacco Use Types [...] living in a half-way (including now)? 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-LIBRARY ASSOCIATE) to steady your nerves or to get [...] Description 12/03/2024 9:30 AM EDT Office Visit [facility] General Surgery [address], [address] [place] [address] Diogenes Al MD [address] [place] [address] documented as of this encounter Procedures Procedure Name Priority Date/Time Associated Diagnosis Comments CT OUTSIDE IMAGES 11/18/2024 9:17 PM EDT documented in this encounter Results * CT OUTSIDE IMAGES (11/18/2024 9:17 [...] documented as of this encounter Care Teams Foiling Machine Operator Relationship Specialty Start Date End Date Roman Medina MD PCP - General 06/24/22 Lazarus North MD [address] [place] [address] 06/24/22 documented as of this encounter
--- OUTSIDE RECORDS SUMMARY | 2024-12-03 07:40 | XMS_ITS | Encounter Summary ---
Author Organization Healthcare Address [address] [place] [address] Care Team Providers Care Harness Builder Name Role Phone Roman Medina MD Primary Care Provider [phone] Lazarus North MD Unavailable Encounter Details Date Type Department Care Team (Late st Contact Info) Description 11/09/2024 Telephone [facility] General Surgery [address], [address] [place] [address] Linda Parham, RN CH-PAV A 7 T2 UNI Social History Tobacco Use Types Packs/Day Years [...] place to sleep or slept in a [place] health care facility (including now)? No 07/15/2023 Housing Stability Vital Sign Answer Efe e Recorded In the last 12 months, was t here a time when you were not able to pay the mortgage or rent on time? No 10/23/2024 In the past 12 months, how m any times have you moved where you were living? 0 10/23/2024 At any time in the past 12 m [facility], were you homeless or living in a [place] health care facility (including now)? 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-SENIOR FRONT END WEB DEVELOPER) to steady your nerves or to get rid of a hangover? 0 12/07/2023 CAGE Questionnaire Score 0 024 Utilities Answer Date Recorded In the past 12 months has e electric, gas, oil, or water company [...] encounter Miscellaneous Notes * Telephone Encounter - Linda Parham RN - 11/10/2024 1:11 PM EDT No new orders or change in treatment plan. Patient can continue to do dry dressing changes daily and PRN. She can also wear an abdominal binder with a space cut out for the ostomy. Patient verbalizedunderstanding. * Telephone Encounter - Linda Parham RN - 11/09/2024 1:35 PM EDT Patient called to report midline abdominal incision has opened up Requested she send pictures. She is currently here with her who had a stroke yesterday. Went to husbands room. Pictures added to chart. Scant amount of yellow drainage on dry dressing. Opening is superficial. Replaced dry dressing and sent message to team. documented in this encounter Plan of Treatment Upcoming Encounters Date Type Department Care Team (Late st Contact Info) Description 12/03/2024 9:30 AM EDT Office Visit [facility] General Surgery [address] [place] [address] Diogenes Al MD [address] [place] [address] documented as of this encounter Visit Diagnoses Not on filedocumented in this encounter Additional Health Concerns Assessment Noted Time A fall risk assessment has been complete d for the patient 03/20/2024 8:48 AM EDT A Body Mass Index follow-up plan has been documented for the patient 11/05/2024 12:06 PM EDT documented as of this encounter Care Teams Harness Builder Relationship Specialty Start Date End Date Roman Medina MD PCP - General 06/24/22 Lazarus North MD [address] [place] [id number] 06/24/22 documented as of this encounter
--- OUTSIDE RECORDS SUMMARY | 2024-12-03 07:40 | XMS_ITS | Encounter Summary ---
Author Organization [facility] Address [address] [place] [address] Care Team Providers Care Blow Up Operator Name Role Phone Roman Medina MD Primary Care Provider [phone] Lazarus North MD Unavailable [phone] Encounter Details Date Type Department Care Team (Latest Contact Info) Description 11/05/2024 Travel Social History Tobacco Use Types Packs/Day [...] time in the past 12 m [facility], were you homeless or living in [...] drink first t cash in the morning (EYE-CAPTAIN'S ASSISTANT) to steady your nerves or to get [...] Description 12/03/2024 9:30 AM EDT Office Visit [facility] General Surgery [address], [address] [place] [address] Diogenes Al MD [address] [place] [address] documented as of this encounter Visit Diagnoses Not on filedocumented in this encounter Additional Health Concerns Assessment Noted Time A fall risk assessment has been complete d for the patient 03/20/2024 8:48 AM EDT A Body Mass Index follow-up plan has been documented for the patient 11/05/2024 12:06 PM EDT documented as of this encounter Care Teams Blow Up Operator Relationship Specialty Start Date End Date Roman Medina MD PCP - General 06/24/22 Lazarus North MD [address] [place] [address] 06/24/22 documented as of this encounter
[2024-12-03] MEDS: 0.9 % SODIUM CHLORIDE 50 ML VIAL IV (07:44)
[2024-12-03] MEDS: SODIUM CHLORIDE 0.9% 10ML SYR (RAD ONLY) 10 ML IV (07:44)
[2024-12-03] MEDS: IOPAMIDOL-370 (76%);100ML BOTTLE 100 ML IV (07:44)
== END 2024-12-03 23:59 | disposition home or self-care (01) ==
LOC: RAD 06:56
PROVIDERS: PCP Family Medicine; Visit Provider Internal Medicine Adolescent Medicine
DX: I74.11 Embolism and thrombosis of thoracic aorta (principal)
CPT/HCPCS: 74174; Q9967

== ENCOUNTER 2024-12-08 10:54 | Day surgery (SDC) | payer MEDICARE, MEDICAID, SELFPAY ==
[2024-12-08 11:01] VITALS: BP 125/79; PULSE 72; RESP 16; TEMP 36.5; O2SAT 94; BMI 24.7
--- NOTE | 2024-12-08 11:21 | EXP.PAIN.PRO ---
Procedure Date: 12/08/24 Time: 11:10 Anesthesiologist:: Wilian Griggs CRNA Complications:: None Pre-procedure Diagnosis:: Bilateral sacroiliitis Post-procedure Diagnosis:: Same Indications for Procedure:: Patient is a very pleasant 69-year-old female comes to clinic today for bilateral sacroiliac joint injection cortisone local anesthetic. She reports low lumbar back pain off the midline bilaterally. Bilateral posterior hip pain. Difficulty transitioning from sitting to standing. She rates her pain 7/10. Procedure Details:: Procedure: Bilateral sacroiliac joint injections under fluoroscopy Informed consent was obtained and the risks and benefits of the procedure were explained to the patient.~ The patient was taken to the procedure room and noninvasive monitors were placed including a noninvasive blood pressure cuff and pulse oximeter.~ The patient was placed prone on the procedure table. Both hips were cleansed using Betadine as a cleansing solution. C-arm fluoroscopy was used to view the right sacroiliac joint.~ The skin and subcutaneous tissues were anesthetized using lidocaine 1.5% and a 25-gauge needle.~ After this, a 22-gauge spinal needle was inserted under fluoroscopic guidance into the inferior aspect of the right sacroiliac joint.~ Omnipaque dye was injected and good spread was seen throughout the joint.~ After this, approximately 5 mL of bupivacaine, 0.25% and Depo-Medrol, 40 mg was incrementally injected into the right sacroiliac joint. We then moved to the left sacroiliac joint.~ The skin and subcutaneous tissues were anesthetized using lidocaine 1.5% and a 25-gauge needle.~ After this, a 22-gauge spinal needle was inserted under fluoroscopic guidance into the inferior aspect of the left sacroiliac joint.~ Omnipaque dye was injected and good spread was seen throughout the joint. After this, approximately 5 mL of bupivacaine, 0.25% and Depo-Medrol, 40 mg was incrementally injected into the left sacroiliac joint.~ The patient tolerated the procedure well with no complications. The patient was observed in the Pain Clinic and then was discharged home neurologically intact. Plan and Disposition:: Patient was discharged without incident.
[2024-12-08 11:30] VITALS: BP 116/79; PULSE 69; RESP 16; O2SAT 95
--- NOTE | 2024-12-08 11:37 | P.PCN_ITS ---
Procedure Date: 12/08/24 Time: 11:10 Anesthesiologist:: Wilian Griggs CRNA Complications:: None Pre-procedure Diagnosis:: Bilateral sacroiliitis Post-procedure Diagnosis:: Same Indications for Procedure:: Patient is a very pleasant 69-year-old female that comes to our clinic today for bilateral sacroiliac joint injections cortisone local anesthetic. Patient describes low lumbar back pain off the midline bilaterally. Bilateral posterior hip pain. Difficulty transitioning from sitting to standing. Difficulty with ambulation due to bilateral posterior hip pain. She rates her pain 6/10. Procedure Details:: Procedure: Bilateral sacroiliac joint injections under fluoroscopy Informed consent was obtained and the risks and benefits of the procedure were explained to the patient.~ The patient was taken to the procedure room and nonin vasive monitors were placed including a noninvasive blood pressure cuff and pulse oximeter.~ The patient was placed prone on the procedure table. Both hips were cleansed using Betadine as a cleansing solution. C-arm fluoroscopy was used to view the right sacroiliac joint.~ The skin and subcutaneous tissues were anesthetized using lidocaine 1.5% and a 25-gauge needle.~ After this, a 22-gauge spinal needle was inserted under fluoroscopic guidance into the inferior aspect of the right sacroiliac joint.~ Omnipaque dye was injected and good spread was seen throughout the joint.~ After this, approximately 5 mL of bupivacaine, 0.25% and Depo-Medrol, 40 mg was incrementally injected into the right sacroiliac joint. We then moved to the left sacroiliac joint.~ The skin and subcutaneous tissues were anesthetized using lidocaine 1.5% and a 25-gauge needle.~ After this, a 22- gauge spinal needle was inserted under fluoroscopic guidance into the inferior aspect of the left sacroiliac joint.~ Omnipaque dye was injected and good spread was seen throughout the joint. After this, approximately 5 mL of bupivacaine, 0.25% and Depo-Medrol, 40 mg was incrementally injected into the left sacroiliac joint.~ The patient tolerated the procedure well with no complications. The patient was observed in the Pain Clinic and then was discharged home neurologically intact. Plan and Disposition:: Patient was discharged without incident.
[2024-12-08] MEDS: BUPIVACAINE 0.25% 10ML INJ 25 MG IJ (12:11)
[2024-12-08] MEDS: LIDOCAINE 1% 5ML PF VIAL 5 ML (12:12)
[2024-12-08] MEDS: DEXAMETHASONE 10MG/ML 1ML VIAL 10 MG (12:12)
[2024-12-08 12:21] VITALS: BP 125/79; PULSE 72; RESP 18; O2SAT 94
[2024-12-08 12:26] VITALS: BP 125/79; PULSE 72; RESP 18; O2SAT 94
== END 2024-12-08 11:30 | disposition home or self-care (01) ==
PROVIDERS: PCP Family Medicine; Visit Provider Nurse Anesthetist, Certified Registered
DX: M46.1 Sacroiliitis, not elsewhere classified (principal); I25.10 Atherosclerotic heart disease of native coronary artery without angina pectoris; J44.9 Chronic obstructive pulmonary disease, unspecified; E78.5 Hyperlipidemia, unspecified; I10 Essential (primary) hypertension; G47.33 Obstructive sleep apnea (adult) (pediatric); Z88.5 Allergy status to narcotic agent; Z88.2 Allergy status to sulfonamides; Z88.1 Allergy status to other antibiotic agents; Z91.09 Other allergy status, other than to drugs and biological substances; Z88.6 Allergy status to analgesic agent; Z86.718 Personal history of other venous thrombosis and embolism; Z87.891 Personal history of nicotine dependence; Z79.899 Other long term (current) drug therapy; Z79.83 Long term (current) use of bisphosphonates; Z79.890 Hormone replacement therapy
CPT/HCPCS: G0260; J0665; J1100; J2003

== ENCOUNTER 2024-12-15 10:55 | Day surgery (SDC) | payer MEDICARE, MEDICAID, SELFPAY ==
[2024-12-14 12:14] VITALS: BMI 24.7
[2024-12-15] MEDS: TETRACAINE 0.5% OPTH SOL 15ML OP (11:36)
[2024-12-15] MEDS: APRACLONIDINE 0.5% OPHTH SOLN 5ML OP (11:37)
[2024-12-15] MEDS: PHENYLEPHRINE 2.5% OPHTH SOLN 2ML OP (11:40)
[2024-12-15] MEDS: TROPICAMIDE 1% OPTH SOLN 2ML OP (11:40)
[2024-12-15 11:42] VITALS: BP 101/59; PULSE 86; RESP 18; TEMP 36.1; O2SAT 97
--- NOTE | 2024-12-15 12:04 | P.PCN_ITS ---
[facility] Procedure Note Date: 12/15/24 Time: 12:04 Procedure Note:: Preoperative diagnosis: Posterior Opacification [both] eye Postoperative diagnosis: same Operation: YAG Laser Capsulotomy The patient has undergone uneventful cataract surgery in the past. The patient has noticed that the vision has decreased from the previous good level postop. The patient reports that he/she is having trouble reading and/or driving or that glare is giving them a problem. On exam, the patient was found to have visually significant posterior capsular opacification. The treatment options, risks and benefits were explained and the patient elected to have YAG laser capsulotomy in an attempt to improve the vision. Of note, the best corrected visual acuity is in the 23/30 or worse range by refraction or glare testing. The eye was dilated and 1 drop of 0.5% Iopidine applied. YAG laser energy was applied to the posterior capsular bag with good formation of an opening and no complications were noted. The patient will be seen back for follow up in 2 weeks OD 49 pulses/161mj OS 43pulses/143mj
== END 2024-12-15 12:02 | disposition home or self-care (01) ==
PROVIDERS: PCP Family Medicine; Visit Provider Ophthalmology
PROC: (CPT 66821; principal; 2024-12-15 13:00)
DX: H26.493 Other secondary cataract, bilateral (principal); F41.9 Anxiety disorder, unspecified; M19.90 Unspecified osteoarthritis, unspecified site; J44.9 Chronic obstructive pulmonary disease, unspecified; F32.A Depression, unspecified; H04.123 Dry eye syndrome of bilateral lacrimal glands; K21.9 Gastro-esophageal reflux disease without esophagitis; E78.00 Pure hypercholesterolemia, unspecified; H91.90 Unspecified hearing loss, unspecified ear; Z96.1 Presence of intraocular lens; Z98.41 Cataract extraction status, right eye; Z98.42 Cataract extraction status, left eye; Z97.3 Presence of spectacles and contact lenses; Z87.891 Personal history of nicotine dependence; Z79.899 Other long term (current) drug therapy; Z79.83 Long term (current) use of bisphosphonates; Z88.5 Allergy status to narcotic agent; Z88.6 Allergy status to analgesic agent; Z88.2 Allergy status to sulfonamides; Z88.1 Allergy status to other antibiotic agents; Z79.890 Hormone replacement therapy; Z79.01 Long term (current) use of anticoagulants; Z79.51 Long term (current) use of inhaled steroids
CPT/HCPCS: 66821

== ENCOUNTER 2024-12-31 14:27 | Outpatient (POV) | payer MEDICARE, MEDICAID, SELFPAY ==
--- OUTSIDE RECORDS SUMMARY | 2024-11-05 10:15 | XMS_ITS | Encounter Summary ---
Author Organization Healthcare Address [address] [place] [address] Care Team Providers Care Display Fabrication Supervisor Name Role Phone Roman Medina MD Primary Care Provider [phone] Lazarus North MD Unavailable [phone] Reason for Visit * Reason Comments Post-op Encounter Details Date Type Department Care Team (Late st Contact Info) Description 11/05/2024 10:15 AM EDT Office Visit [facility] General Surgery [address] [place] [address] Farnaz Brito MD [address] [facility] [address] [place] [address] SBO (small bowel obstruction) (CMS/HCC) (Primary Dx); Ileostomy present (CMS/HCC) Social History Tobacco Use Types Packs/Day Years [...] place to sleep or slept in a senior living (including now)? No 07/15/2023 Housing Stability Vital Sign Answer Efe e Recorded In the last 12 months, was t here a time when you were not able to pay the mortgage or rent on time? No 10/23/2024 In the past 12 months, how m any times have you moved where you were living? 0 10/23/2024 At any time in the past 12 m [facility], were you homeless or living in a senior living (including now)? 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 0 12/07/2023 CAGE Questionnaire Score 0 024 Utilities Answer Date Recorded In the past 12 months has th e [employer], gas, oil, or water company threatened to [...] Sign Reading Time Taken Comments Blood Pressure 126/86 11/05/2024 10:19 AM EDT Pulse 94 11/05/2024 10:19 AM EDT Temperature 36.5 C (97.7 F) 11/05/2024 10:19 AM EDT Respiratory Rate - - Oxygen Saturation - - Inhaled Oxygen Concentration - - Weight 60.9 kg (134 lb 3.2 oz) 11/05/2024 10:19 AM EDT Height 160 cm (5' 3 ) 11/05/2024 10:19 AM EDT Body Mass Index 23.77 11/05/2024 10:19 AM EDT documented in this encounter Functional [...] Yes 07/15/2023 12:07 PM Carlos Bradley RN documented as of this encounter Mental Status * Because of a physical, mental, or emotional condition, do you have serious difficulty concentrating, remembering, or making decisions? (5 years old or older) Answer Entry Date Author No 07/15/2023 12:07 PM Carlos Bradley RN documented in this encounter Miscellaneous Notes * Progress Notes - Krissy Talley MD - 11/05/2024 10:15 AM EDT Dear Roman Medina MD, Davina Vidal is a 69 y.o. year old female who returns to clinic for routine follow up after ex lap andlysis of adhesions for obstruction. Patient is recovering as expected without any concern. She had been seen at an outside ED due to concern for stool leakage from her appliance contaminating her midline wound at which time a few sutures were placed in the inferior portion of her incision. The following portions of the chart were reviewed this encounter and updated as appropriate: Relevant review of systems was obtained and is negative unless as stated above in HPI. On exam, surgical incisions are healing well. Inferior portion of incision closed and healing well with small area of exposed, granulating subcutaneous tissue. No drainage or erythema. No concerning tenderness to palpation. No evidence of incisional hernia. Surgical pathology: No specimen obtained. Assessment/Plan In Summary: Davina Vidal is a 69 y.o. year old female s/p ex lap with lysis of adhesions for SBO. She is eating normally with appropriate stoma output. Incision does not appear dehisced. All sutures removed. Small area of granulating tissue at the left lateral aspect of her wound. Covered with b acitracin and a bandage. Below is a summary of the diagnoses addressed in today's visit and any associated orders. 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 I saw and evaluated the patient. I discussed the case with the resident/fellow and agree with the findings and plan as documented. Farnaz Brito MD Cosigned by Farnaz Brito MD at 11/05/2024 12:06 PM EDT Associated attestation - Farnaz Brito MD - 11/05/2024 12:06 PM EDT I saw and evaluated the patient. I discussed the case with the resident/fellow and agree with the findings and plan as documented. documented in this encounter Plan of Treatment Not on file documented as of this encounter Visit Diagnoses Diagnosis SBO (small bowel obstruction) (CMS/HCC)- Primary Unspecified intestinal obstruction Ileostomy present (CMS/HCC) documented in this encounter Additional Health Concerns Assessment Noted Time A fall risk assessment has been complete d for the patient 03/20/2024 8:48 AM EDT A Body Mass Index follow-up plan has been documented for the patient 11/05/2024 12:06 PM EDT documented as of this encounter Care Teams Display Fabrication Supervisor Relationship Specialty Start Date End Date Roman Medina MD PCP - General 06/24/22 Lazarus North MD [address] [place] [address] 06/24/22 documented as of this encounter
--- OUTSIDE RECORDS SUMMARY | 2024-12-03 09:30 | XMS_ITS | Encounter Summary ---
Author Organization Healthcare Address [address] [place] [address] Care Team Providers Care Public Health Social Worker Name Role Phone Roman Medina MD Primary Care Provider [phone] Lazarus North MD Unavailable [phone] Reason for Visit * Reason Comments Wound Check Encounter Details Date Type Department Care Team (Late st Contact Info) Description 12/03/2024 9:30 AM EDT Office Visit [facility] General Surgery [address], [address] [place] [address] Diogenes Al MD [address] [facility] [address] [place] [address] Open wound (Primary Dx); Encounter for wound care Social History Tobacco Use Types Packs/Day Years [...] place to sleep or slept in a alf (including now)? No 07/15/2023 Housing Stability Vital Sign Answer Efe e Recorded In the last 12 months, was t here a time when you were not able to pay the mortgage or rent on time? No 10/23/2024 In the past 12 months, how m any times have you moved where you were living? 0 10/23/2024 At any time in the past 12 m [facility], were you homeless or living in a alf (including now)? 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-OFFICE SWEEPER) to steady your nerves or to get rid of a hangover? 0 12/07/2023 CAGE Questionnaire Score 0 024 Utilities Answer Date Recorded In the past 12 months has e [employer], gas, oil, or water company threatened to [...] Sign Reading Time Taken Comments Blood Pressure 118/77 12/03/2024 9:42 AM EDT Pulse 77 12/03/2024 9:42 AM EDT Temperature 36.6 C (97.8 F) 12/03/2024 9:42 AM EDT Respiratory Rate - - Oxygen Saturation - - Inhaled Oxygen Concentration - - Weight 63.4 kg (139 lb 11.2 oz) 12/03/2024 9:42 AM EDT Height 160 cm (5' 3 ) 12/03/2024 9:42 AM EDT Body Mass Index 24.75 12/03/2024 9:42 AM EDT documented in this encounter Functional [...] encounter Miscellaneous Notes * Progress Notes - Zaina Sorenson RN - 12/03/2024 9:30 AM EDT Attached media from the original note were not included. Cosigned by Diogenes Al MD at 12/03/2024 10:13 AM EDT * Progress Notes - Diogenes Al MD - 12/03/2024 9:30 AM EDT Dear Roman Medina MD, Davina Vidal is a 69 y.o. year old female who returns to clinic for routine follow up after ex lap with lysis of adhesions. Patient is recovering as expected without any concern. The following portions of the chart were reviewed this encounter and updated as appropriate: Meds Relevant review of systems was obtained and is negative unless as stated above in HPI. On exam, surgical incisions are healing well except one area at the inferior portion of her wound that is well granulated but wound contracture has stalled. No concerning tenderness to palpation. No evidence of incisional hernia. Surgical pathology: No specimen obtained. Assessment/Plan In Summary: Davina Vidal is a 69 y.o. year old female with a small non- healing wound after ex lap and lysis of adhesions. Silver nitrate applied to wound. Below is a summary of the diagnoses addressed in today's visit and any associated orders. Problem List Items Addressed This Visit None Visit Diagnoses Open wound - Primary Relevant Orders DME Wound Supplies We will see her back for: Follow up if symptoms worsen or fail to improve. documented in this encounter Plan of Treatment Not on file documented as of this encounter Visit Diagnoses Diagnosis Open wound- Primary Open wound(s) (multiple) of unspecified site(s), without mention of complication Encounter for wound care documented in this encounter Additional Health Concerns Assessment Noted Time A fall risk assessment has been complete d for the patient 03/20/2024 8:48 AM EDT A Body Mass Index follow-up plan has been documented for the patient 12/03/2024 10:13 AM EDT documented as of this encounter Care Teams Public Health Social Worker Relationship Specialty Start Date End Date Roman Medina MD PCP - General 06/24/22 Lazarus North MD [address] [place] [address] 06/24/22 documented as of this encounter
--- OUTSIDE RECORDS SUMMARY | 2024-12-31 14:32 | XMS_ITS | Encounter Summary ---
Author Organization Healthcare Address [address] [place] [address] Care Team Providers Care Csr Name Role Phone Roman Medina MD Primary Care Provider [phone] Lazarus North MD Unavailable [phone] Encounter Details Date Type Department Care Team (Late st Contact Info) Description 11/09/2024 Telephone [facility] General Surgery [address], [address] [place] [address] Linda Parham, RN [facility]-PAV A [...] place to sleep or slept in a jail (including now)? No 07/15/2023 Housing Stability Vital Sign Answer Efe e Recorded In the last 12 months, was t here a time when you were not able to pay the mortgage or rent on time? No 10/23/2024 In the past 12 months, how m any times have you moved where you were living? 0 10/23/2024 At any time in the past 12 m [facility], were you homeless or living in a jail (including now)? 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-HOME HEALTH CARE RESPIRATORY THERAPIST) to steady your nerves or to get [...] documented as of this encounter Care Teams Csr Relationship Specialty Start Date End Date Roman Medina MD PCP - General 06/24/22 Lazarus North MD [address] [place] [address] 06/24/22 documented as of this encounter
--- OUTSIDE RECORDS SUMMARY | 2024-12-31 14:32 | XMS_ITS | Encounter Summary ---
Author Organization Healthcare Address [address] [place] [address] Care Team Providers Care Library Customer Service Clerk Name Role Phone Roman Medina MD Primary Care Provider [phone] Lazarus North MD Unavailable [phone] Reason for Visit * Reason Comments Med Refill Encounter Details Date Type Department Care Team (Late st Contact Info) Description 11/27/2024 Refill [facility] [address] [place] [address] Vicky Alonzo E, MAINTENANCE MECHANIC ENGINE [address] [place] [address] Recurrent UTI Social History Tobacco [...] place to sleep or slept in a nursing home (including now)? No 07/15/2023 Housing Stability Vital [...] were you homeless or living in a nursing home (including now)? 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-HEAD CONTROL CLERK) to steady your nerves or to get rid of a hangover? 0 12/07/2023 CAGE Questionnaire Score 0 024 Utilities Answer Date Recorded In the past 12 months has e electric, gas, oil, or water [employer] threatened to shut off services in your [...] documented as of this encounter Care Teams Library Customer Service Clerk Relationship Specialty Start Date End Date Roman Medina MD PCP - General 06/24/22 Lazarus North MD [address] [place] [address] 06/24/22 documented as of this encounter
--- OUTSIDE RECORDS SUMMARY | 2024-12-31 14:32 | XMS_ITS | Encounter Summary ---
Author Organization [facility] Address [address] [place] [address] Care Team Providers Care Research Nurse Name Role Phone Roman Medina MD Primary Care Provider [phone] Lazarus North MD Unavailable [phone] Encounter Details Date Type Department Care Team [...] any time in the past 12 m [facility], were you homeless or living in a [...] drink first t cash in the morning (EYE-ACCOUNT GROUP SUPERVISOR) to steady your nerves or to get [...] as of this encounter Care Teams Research Nurse Relationship Specialty Start Date End Date Roman Medina MD PCP - General 06/24/22 Lazarus North MD [address] [place] [address] 06/24/22 documented as of this encounter
--- OUTSIDE RECORDS SUMMARY | 2024-12-31 14:32 | XMS_ITS | Clinical Summary ---
Author Organization Address [address] [place] [address] Care Team Providers Care Superintendent Geophysical Laboratory Name Role Phone Roman Medina MD Primary Care Provider [phone] Lazarus North MD Unavailable [phone] Allergies Active Allergy Reactions Criticality Noted Date [...] tablets by mouth 2 times a day. 02/13/20 Active albuterol 108 (90 Base) MCG/ACT inhaler [...] chew, or split. Active ergocalciferol 1.25 MG (63704 UT) capsule Take 1 capsule by mouth 1 time per week. 03/19/20 24 Active rOPINIRole (Requip) 0.5 MG tablet Take 1 tablet by mouth nightly. 02/28/20 24 Active ondansetron ODT (Zofran-ODT) 4 MG disintegrating tablet Dissolve 1 tablet on the tongue every 6 hours as needed for nausea or vomiting. 20 tablet 10/02/19 25 Active Bevespi Aerosphere 9-4.8 MCG/ACT aerosol Inhale 2 puffs 2 times a day. 10/13/19 25 Active acetaminophen (Tylenol) 325 MG tablet Take 2 tablets by mouth every 6 hours. Under [place] law, monthly prescriptions (30 days) can be refilled at 25 days and three-month prescriptions (90 days) at 80 days. Please contact the insurance company with questions if refills are denied. 100 tablet 10/27/19 25 Active amLODIPine (Norvasc) 5 MG tablet Take 1 tablet by mouth daily. 30 tablet 1 10/28/19 25 Active carvedilol (Coreg) 3.125 MG tablet Take 1 tablet by mouth 2 times a day. 60 tablet 1 10/27/19 25 Active loperamide (Imodium A-D) 2 MG tablet Take 1 tablet by mouth 4 times a day as needed for diarrhea. 30 tablet 10/27/19 25 Active methenamine hippurate (Hiprex) 1 g tabletIndications :Recurrent UTI TAKE ONE TABLET BY MOUTH 2 TIMES A DAY 60 tablet 11/28/19 25 Active Eliquis 5 MG tablet Take 1 tablet by mouth 2 times a day. 11/21/19 25 Active naloxone (Narcan) 4 mg/0.1 mL nasal spray 1. Give 1 spray in nostril for no/slow breathing or cannot wake after opioid use 2. Call 911 3. Repeat in other nostril if symptoms continue 1 each 10/27/19 25 025 Discontin ued(Thera py completed ) Active Problems Problem Noted Date Diagnosed Date Encounter for wound care 12/03/2024 SBO (small bowel obstruction) 11/05/2024 Ileostomy present [...] Hypocalcemia 07/14/2023 09/08/2024 Small bowel obstruction 07/09/2023 0612/2023 Overview (12/08/2023): Transition point appears to be [...] embolism, bilateral 10/08/2022 2024 Small bowel obstruction 08/26/202208/22 Overview (09/08/2022): S/P Ex-lap with lysis of adhesions on 08/30 (Kieran) Initial post-op pain controlled on STRATIGRAPHY TEACHER, d/c STRATIGRAPHY TEACHER on 09/06 Diet advanced slowly, tolerated well TPN started, now stopped Small bowel obstruction 06/25/2022 01/0 08/2022 Overview (06/26/2022): Vomiting and pain Pain continues [...] Encounters Date Type Department Care Team Description 12/03/2024 9:30 AM EDT Office Visit [facility] General Surgery [address] [place] [phone] Diogenes Al MD Open wound (Primary Dx); Encounter for wound care 12/03/2024 Travel 11/27/2024 Refill [facility] Urology [address], [address] [place] [phone] Vicky Alonzo APRN Recurrent UTI 11/18/2024 Orders Only External Location [address] [place] [address] Provider, External 11/18/2024 Orders Only External Location [address] [place] [phone] Provider, External 11/09/2024 Telephone [facility] General Surgery [address] [place] [address] Linda Parham RN 11/05/2024 10:15 AM EDT Office Visit [facility] General Surgery [address], [address] [place] [address] Farnaz Brito MD SBO (small bowel obstruction) (CMS/[facility]) (Primary Dx); Ileostomy present (CMS/HCC) 11/05/2024 Travel 10/21/2024 1:37 PM EDT Anesthesia Event [facility] [address] [place] [address] Ирина Tejeda CRNA Sullivan, Daniel J, DO 10/21/2024 12:30 PM EDT - 10/21/2024 3:00 PM EDT Surgery [facility] [address] [place] [address] Farnaz Brito MD LAPAROTOMY, EXPLORATORY, WITH LYSIS OF ADHESIONS 10/21/2024 Refill [facility] Urology [address] [place] [phone] Vicky Alonzo APRN Recurrent UTI (Primary Dx) 10/20/2024 Travel 10/19/2024 Travel 10/18/2024 8:19 PM EDT - 10/26/2024 1:18 PM EDT Hospital Encounter [facility] [address] [place] [address] Margarito Sue MD Akpunonu, MD Reji Snyder, MD Daryl Pond, MD Benny Ruth, King Mcdonald MD SBO (small bowel obstruction) ([facility]) (Primary Dx) Discharge Disposition: Home or Self Care 10/18/2024 Travel 09/28/2024 10:24 PM EDT - 10/01/2024 2:15 PM EDT Hospital Encounter [facility] [address] [place] [address] Wilian Romano MD Wheelock, MD Kieran Ruth, June Montiel MD Nausea and vomiting, unspecified vomiting type (Primary Dx) Discharge Disposition: Home or Self Care from Last 3 Months Immunizations Immunization Administration Dates Next Due Influenza, High-dose, Split Virus, Trivalent, Injectable, preservative free 05/29/2024 Influenza, injectable, quadr ivalent, preservative free 03/04/2023,05/02/2021,03/28/2020,2018,05/05/2018,03/28/2016 Influenza, seasonal, injecta ble, preservative free 05/05/2018,05/24/2017 [employer] COVID-19 Vac cine (Purple Cap) 12+ 03/27/2021,03/06/2021 [...] time in the past 12 m [facility], were you homeless or living in a halfway (including now)? 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-MED CARE MANAGER) to steady your nerves or to [...] F) 12/03/2024 9:42 AM EDT Respiratory Rate 16 10/26/2024 3:23 AM EDT Oxygen Saturation 93% 10/26/2024 11: 31 AM EDT Inhaled Oxygen Concentration - - Weight 63.4 kg (139 lb 11.2 oz) 12/03/2024 9:42 AM EDT Height 160 cm (5' 3 ) 12/03/2024 9:42 AM EDT Body Mass Index 24.75 12/03/2024 9:42 AM EDT Plan of Treatment Health Maintenance Due Date Last Done Comments [facility]-Bone Density Scan 1955 [facility]-Medicare Annual Wellness (AWV) 1955 [facility]-/Child/Adol SDOH Screenings 1955 [facility]-Zoster Vaccines (1 of 2) 1976 CT Colonography 2002 FIT-DNA 2002 FIT 2002 FOBT 2002 Sigmoidoscopy 2002 [facility]-Breast Cancer Screening 10/23/2007 [id number] Vaccine ( season) 2024 06/27/2022, 09/07/2021, 03/27/2021, Additional history exists [facility]-DTaP,Tdap,and Td Vaccines (2 - Td or Tdap) 01/15/2025 01/15/2015 [facility]-Influenza Vaccine (#1) 02/22/202505/29, 03/04/2023, 05/02/2021, Additional history exists [facility]-Depression Screening 03/20/2025 03/20/2024, 11/2020 [facility]- SDOH Screenings 04/25/2025 [facility]-Adult SDOH Screenings 04/25/2025 10/23/2024 Colonoscopy 05/08/2027 05/08/2017, 04/20/2015 [facility]-Colorectal Cancer Screening 05/08/2027 [facility]-Pneumococcal Vaccine: 50+ Years Completed 03/07/2023, 06/15/2014 [facility]-RSV Vaccine: 60+ Years or Completed 12/03/2023 [facility]-Hepatitis C Screening Completed 2024, 07/09/2023, 10/13/2021, [...] 9:12 PM EDT PHOSPHORUS, PLASMA Routine 10/26/2024 11 :09 AM EDT MAGNESIUM, PLASMA Routine 10/26/2024 11: 09 AM EDT BASIC METABOLIC PANEL, PLASMA Routine 10/26/2024 11:09 AM EDT EXTRA TUBE LAVENDER TOP Routine 10/25/2024 1:08 PM EDT EXTRA TUBES Routine 10/25/2024 1:08 PM EDT PHOSPHORUS, PLASMA Add-On 10/25/2024 1: 08 PM EDT POTASSIUM, PLASMA Pending Discharge 10/25/2024 1:08 PM EDT PHOSPHORUS, PLASMA Routine 10/25/2024 11 :16 AM EDT MAGNESIUM, PLASMA Routine 10/25/2024 11: 16 AM EDT BASIC METABOLIC PANEL, PLASMA Routine 10/25/2024 11:16 AM EDT INSERT PERIPHERAL IV Routine 10/23/2024 10:25 AM EDT CBC W/O DIFFERENTIAL Routine 2024 12:12 AM EDT BASIC METABOLIC PANEL, PLASMA Routine 2024 12:12 AM EDT MAGNESIUM, PLASMA Routine 2024 12: 12 AM EDT PHOSPHORUS, PLASMA Routine 2024 12 :12 AM EDT ANESTHESIA ULTRASOUND GUIDED Routine 10/21/2024 2:17 PM EDT PB ANESTHESIA PLACEHOLDER Routine 10/21/2024 1:49 PM EDT OK AN ELECTIVE ENDOTRACHEAL AIRWAY Routine 10/21/2024 1:49 [...] PANEL, PLASMA STAT 10/18/2024 8:17 PM EDT HEPATITIS C ANTIBODY - ED W/REFLEX TO HCV QUANT PCR STAT 09/05/2024 9:02 PM EDT COLONOSCOPY 05/08/2017 [...] 11:09 AM EDT) Only the most recent of5 resultswithin the time period is included. Phosphorus, Plasma 3.3 2.5 - 4.5 mg/dL 10/26/2024 12:02 PM EDT [facility] Blood Venous blood specimen / Unknown Venipuncture / Unknown 10/26/2024 11:09 AM EDT 10/26/2024 11:18 AM EDT Yuki Shankar APRN LAB BLOOD ORDERABLES Final Re sult Performing Organization Address City/[facility]/ZIP Co de Phone Number [facility] [address] [place] [address] * (ABNORMAL) Magnesium (10/26/2024 11:09 AM EDT) Only the most recent of4 resultswithin the time period is included. Magnesium, Plasma 1.7(L) 1.9 - 2.4 mg/dL 10/26/2024 12:02 PM EDT [facility] Blood Venous blood specimen / Unknown Venipuncture / Unknown 10/26/2024 11:09 AM EDT 10/26/2024 11:18 AM EDT Yuki Shankar APRN LAB BLOOD ORDERABLES Final Re sult [facility] [address] [place] [address] * (ABNORMAL) Basic metabolic panel (10/26/2024 11:09 AM EDT) Only the most recent of4 resultswithin the time period is included. Glucose, Plasma 113(H) 74 - 99 mg/dL 10/26/2024 12:02 PM EDT [facility] BUN, Plasma 9 8 - 23 mg/dL 10/26/2024 12:02 PM EDT [facility] Creatinine, Plasma 0.74 0.60 - 1.10 mg/dL 10/26/2024 12:02 PM EDT [facility] BUN/Creatinine Ratio 12 10/26/2024 12:02 PM EDT [facility] Sodium, Plasma 136 136 - 145 mmol/L 10/26/2024 12:02 PM EDT [facility] Potassium, Plasma 3.8 3.6 - 4.9 mmol/L 10/26/2024 12:02 PM EDT [facility] Chloride, Plasma 101 97 - 107 mmol/L 10/26/2024 12:02 PM EDT [facility] CO2, Plasma 25 22 - 29 mmol/L 10/26/2024 12:02 PM EDT [facility] Anion Gap 10 6 - 16 mmol/L 10/26/2024 12:02 PM EDT [facility] Total Calcium, Plasma 8.2(L) 8.9 - 10.2 mg/dL 10/26/2024 12:02 PM EDT [facility] eGFRcr 88.8 mL/min/1.7 3m*2 10/26/2024 12:02 PM EDT [facility] Comment:Reported eGFRcr in m L/min/1.73m2 is based the CKD-EPI 2020 equation that does not use a race coefficient. Blood Venous blood specimen / Unknown Venipuncture / Unknown 10/26/2024 11:09 AM EDT 10/26/2024 11:18 AM EDT us Yuki Shankar APRN LAB BLOOD ORDERABLES Final Re sult [facility] [address] [place] [address] * Lavender Top (10/25/2024 1:08 PM EDT) Extra Hold for add-ons 10/25/2024 4:02 PM EDT [facility] Comment:Auto resulted. Blood Venous blood specimen / Unknown 10/25/2024 1:08 PM EDT 10/25/2024 2:00 PM EDT Farnaz Brito MD LAB BLOOD ORDERABLES Yvonne l Result Performing Organization Address [facility] Co de Phone Number [facility] [address] [place] [address] * Potassium (10/25/2024 1:08 PM EDT) Potassium, Plasma 4.0 3.6 - 4.9 mmol/L 10/25/2024 1:46 PM EDT [facility] Blood Venous blood specimen / Unknown Venipuncture / Unknown 10/25/2024 1:08 PM EDT 10/25/2024 1:19 PM EDT Farnaz Brito MD LAB BLOOD ORDERABLES Yvonne l Result Performing Organization Address City/[facility] Co de Phone Number [facility] [address] [place] [address] * PERIPHERAL IV (SMARTFORM LINK) (10/23/2024 10:25 AM EDT) Only the most recent of3 resultswithin the time period is included. Narrative Angely Linton, RN - 10/23/2024 10:25 AM EDT Angely Linton RN 10/23/2024 10:25 AM Insert peripheral IV [...] 12:12 AM EDT) Only the most recent of2 resultswithin the time period is included. WBC Count 7.15 3.70 - 10.30 10*3/uL LAB HEMATOLOGY METHOD 2024 12:24 AM EDT [facility] RBC Count 4.27 3.90 - 5.20 10*6/uL LAB HEMATOLOGY METHOD 2024 12:24 AM EDT [facility] HGB 11.7 11.2 - 15.7 g/dL LAB HEMATOLOGY METHOD 2024 12:24 AM EDT [facility] HCT 38.6 34.0 - 45.0 % LAB HEMATOLOGY METHOD 2024 12:24 AM EDT [facility] Platelet Count 207 155 - 369 10*3/uL LAB HEMATOLOGY METHOD 2024 12:24 AM EDT [facility] MCV 90 79 - 98 fL LAB HEMATOLOGY METHOD 2024 12:24 AM EDT [facility] MCH 27.4 26.0 - 32.0 pg LAB HEMATOLOGY METHOD 2024 12:24 AM EDT [facility] MCHC 30.3(L) 30.7 - 35.5 g/dL LAB HEMATOLOGY METHOD 2024 12:24 AM EDT [facility] RDW 15.8(H) 11.5 - 14.5 % LAB HEMATOLOGY METHOD 2024 12:24 AM EDT [facility] MPV 11.2 8.8 - 12.5 fL LAB HEMATOLOGY METHOD 2024 12:24 AM EDT [facility] nRBC 0.0 <=0.0 per 100 WBCs LAB HEMATOLOGY METHOD 2024 12:24 AM EDT [facility] Blood Venous blood specimen / Unknown Venipuncture / Unknown 2024 12:12 AM EDT 2024 12:17 AM EDT Rebecca Cadena ANGELINE LAB BLOOD ORDERABLES Yvonne dukes Result [facility] [address] [place] [address] * ANESTHESIA ULTRASOUND GUIDED (10/21/2024 2:17 PM EDT) Narrative Ирина Tejeda CRNA - 10/21/2024 2:17 PM EDT Ирина Tejeda CRNA 10/21/2024 2:18 PM Peripheral IV Inserted by: Ирина Tejeda CRNA Placement Needle size: 18 G Location: forearm Local anesthetic: none Site prep: alcohol Technique: ultrasound guided Attempts: 1 us Jonatan Ashraf MD ANESTHESIA ORDERABLES Final R esult * OK AN ELECTIVE ENDOTRACHEAL AIRWAY, PB ANESTHESIA PLACEHOLDER (10/21/2024 1:49 PM EDT) Narrative Ирина Tejeda CRNA - 10/21/2024 1:49 PM EDT Ирина Tejeda CRNA 10/21/2024 2:20 PM Airway Date/Time: 10/21/2024 1:49 PM Reason: elective Airway not difficult General Information and Staff Patient location during procedure: [place] CLINICAL IMMUNOLOGIST: Ирина Tejeda CRNA Performed: KRISTI Patient Condition [...] ORDERABLE S Final Result Performing Organization Address City/[facility]/ZIP Co de Phone Number BLOOD BANK [address] [place] [address], * POCT glucose meter (10/21/2024 5:58 AM EDT) Only the most recent of5 resultswithin the time period is included. [facility] POCT Glucose 90 74 - 99 mg/dL [...] Comment 10/21/2024 6:00 AM EDT [facility] Associate Manager Affiliate Marketing ID Cheng Downing 6:00 AM EDT [facility]ALTH[facility]ARE LAB Device ID [id number] 10/21/2024 6:00 AM EDT [facility] Specimen Type POC Capillary 10/21/2024 6:00 AM EDT [facility] Blood Capillary blood specimen / Unknown 10/21/2024 5:58 AM EDT 10/21/2024 6:00 AM EDT Farnaz Brito MD LAB POINT OF CARE TEST DOCKED DEVICE UNSOLICITED RESULTS Final Result [facility] [address] [place] [address] * XR Gastrograffin Challenge (10/20/2024 8:53 AM [...] No. COMMUNICATION: Per this written report. An DAQRI secured message was sent to the responding [...] No. COMMUNICATION: Per this written report. An DAQRI secured message was sent to the responding clinician, Aung Garcia MD, on 10/19/2024 2:34 AM. Drafted by Vinay Church MD on 10/19/2024 2:28 AM Final report signed by Vinay Church MD on 10/19/2024 2:34 AM us Little Mendoza MD IMG XR PROCEDURES Final [...] 24(H) <14 ng/L 10/18/2024 11:10 PM EDT [facility] Troponin Delta 1 <10 ng/L 10/18/2024 11:10 PM EDT [facility] Troponin Delta Interpretation Not Significant 10/18/2024 11:10 PM EDT [facility] Comment:Not Significant. No acute change in troponin observed between the baseline and 2 hour samples. Blood Venous blood specimen / Unknown Venipuncture / Unknown 10/18/2024 10:45 PM EDT 10/18/2024 10:46 PM EDT June Marinelli DO LAB BLOOD ORDERABLES Final Re sult [facility] [address] [place] [address] * EKG now - STAT (adult) (10/18/2024 8:34 PM EDT) EKG DIAGNOSIS CLASS Abnormal MUSE ECG Ventricular Rate 93 BPM MUSE ECG Atrial Rate 93 BPM MUSE ECG OK Interval 150 ms MUSE ECG QRSD Interval 70 ms MUSE ECG QT Interval 352 ms MUSE ECG QTC Interval 437 ms MUSE ECG P [place] 82 degrees MUSE ECG R [place] 12 degrees MUSE ECG T Wave [place] 60 degrees MUSE ECG Diagnosis Normal sinus rhythm MUSE ECG Diagnosis Low voltage QRS MUSE ECG Diagnosis Cannot rule out Anterior infarct , age undetermined MUSE ECG Diagnosis Abnormal ECG MUSE ECG Diagnosis MUSE ECG Diagnosis Confirmed by Grzegorz Butcher ([id number]) on 10/19/2024 12:57:13 PM MUSE ECG 10/18/2024 8:34 PM EDT 10/19/2024 12:57 PM EDT June Marinelli DO ECG ORDERABLES Final Result Performing Organization Address [facility] Co de Phone Number MUSE ECG * [...] Giorgio Cook MD on 10/18/2024 9:07 PM June Marinelli DO IMG XR PROCEDURES Final Resul t * (ABNORMAL) Troponin now and 120 min (10/18/2024 8:17 PM EDT) Troponin T, High Sensitivity, 0 Hour 23(H) <14 ng/L 10/18/2024 8:51 PM EDT [facility] Blood Venous blood specimen / Unknown Venipuncture / Unknown 10/18/2024 8:17 PM EDT 10/18/2024 8:22 PM EDT June Marinelli DO LAB BLOOD ORDERABLES Final Re sult [facility] [address] [place] [address] * Lactic acid, venous (10/18/2024 8:17 PM EDT) Pathologist [facility] Lactate, Venous, Whole Blood 1.0 0.5 - 2.2 mmol/L LAB HEMATOLOGY METHOD 10/18/2024 8:29 PM EDT [facility] Blood Venous blood specimen / Unknown Venipuncture / Unknown 10/18/2024 8:17 PM EDT 10/18/2024 8:26 PM EDT [employer] LAB BLOOD ORDERABLES Final Re sult [facility] [address] [place] [address] * Lipase (10/18/2024 8:17 PM EDT) Pathologist [facility] Lipase, Plasma 20 19 - 63 U/L 10/18/2024 8:51 PM EDT [facility] Blood Venous blood specimen / Unknown Venipuncture / Unknown 10/18/2024 8:17 PM EDT 10/18/2024 8:22 PM EDT [employer] LAB BLOOD ORDERABLES Final Re sult [facility] [address] [place] [address] * (ABNORMAL) CMP (10/18/2024 8:17 PM EDT) Pathologist [facility] Glucose, Plasma 112(H) 74 - 99 mg/dL 10/18/2024 8:51 PM EDT [facility] BUN, Plasma 9 8 - 23 mg/dL 10/18/2024 8:51 PM EDT [facility] Creatinine, Plasma 0.88 0.60 - 1.10 mg/dL 10/18/2024 8:51 PM EDT [facility] BUN/Creatinine Ratio 10 10/18/2024 8:51 PM EDT [facility] Sodium, Plasma 141 136 - 145 mmol/L 10/18/2024 8:51 PM EDT [facility] Potassium, Plasma 4.1 3.6 - 4.9 mmol/L 10/18/2024 8:51 PM EDT [facility] Chloride, Plasma 104 97 - 107 mmol/L 10/18/2024 8:51 PM EDT [facility] CO2, Plasma 21(L) 22 - 29 mmol/L 10/18/2024 8:51 PM EDT [facility] Anion Gap 16 6 - 16 mmol/L 10/18/2024 8:51 PM EDT [facility] Total Calcium, Plasma 9.3 8.9 - 10.2 mg/dL 10/18/2024 8:51 PM EDT [facility] Total Protein 7.4 6.3 - 7.9 g/dL 10/18/2024 8:51 PM EDT [facility] Albumin, Plasma 3.4(L) 3.5 - 5.2 g/dL 10/18/2024 8:51 PM EDT [facility] AST, Plasma 22 10 - 35 U/L 10/18/2024 8:51 PM EDT [facility] Comment:Hemolyzed, result ma y be falsely increased. ALT, Plasma 11 10 - 35 U/L 10/18/2024 8:51 PM EDT [facility] Alkaline Phosphatase, Plasma 82 46 - 142 U/L 10/18/2024 8:51 PM EDT [facility] Total Bilirubin, Plasma 0.3 0.2 - 1.1 mg/dL 10/18/2024 8:51 PM EDT [facility] eGFRcr 72.6 mL/min/1.7 3m*2 10/18/2024 8:51 PM EDT [facility] Comment:Reported eGFRcr in m L/min/1.73m2 is based the CKD-EPI 2020 equation that does not use a race coefficient. Blood Venous blood specimen / Unknown Venipuncture / Unknown 10/18/2024 8:17 PM EDT 10/18/2024 8:22 PM EDT us June Marinelli DO LAB BLOOD ORDERABLES Final Re sult [facility] [address] [place] [address] * Hepatitis C Antibody - ED (09/05/2024 9:02 PM EDT) Hepatitis C Antibody Negative Negative 09/05/2024 10:04 PM EDT [facility] Blood Venous blood specimen / Unknown Venipuncture / Unknown 09/05/2024 9:02 PM EDT 09/05/2024 9:14 PM EDT King Paniagua MD LAB BLOOD ORDERABLES Final Result [facility] [address] [place] [address] * COLONOSCOPY (05/08/2017) Anatomical Region Laterality Modality Endoscopy Narrative 05/08/2017 Ordered by an unspecified provider. us Historical Provider GI PROCEDURE ORDERABLES F inal [...] Patient has decision-making capacity? Yes Care Teams Superintendent Geophysical Laboratory Relationship Specialty Start Date End Date Roman Medina MD PCP - General 06/24/22 Lazarus North MD [address] [place] [address] 06/24/22
--- OUTSIDE RECORDS SUMMARY | 2024-12-31 14:32 | XMS_ITS | Encounter Summary ---
Author Organization [facility] Address [address] [place] [address] Care Team Providers Care Candy Rolling Machine Operator Name Role Phone Roman Medina MD Primary Care Provider [phone] Lazarus North MD Unavailable [phone] Encounter Details Date Type Department Care Team (Latest Contact Info) Description 12/03/2024 Travel Social History Tobacco Use Types Packs/Day [...] place to sleep or slept in a correction (including now)? No 07/15/2023 Housing Stability Vital Sign Answer Efe e Recorded In the last 12 months, was t here a time when you were not able to pay the mortgage or rent on time? No 10/23/2024 In the past 12 months, how m any times have you moved where you were living? 0 10/23/2024 At any time in the past 12 m [facility], were you homeless or living in a correction (including now)? 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-UNIVERSITY RELATIONS VICE PRESIDENT) to steady your nerves or to get [...] documented as of this encounter Care Teams Candy Rolling Machine Operator Relationship Specialty Start Date End Date Roman Medina MD PCP - General 06/24/22 Lazraus North MD [address] [place] [address] 06/24/22 documented as of this encounter
--- OUTSIDE RECORDS SUMMARY | 2024-12-31 14:32 | XMS_ITS | Encounter Summary ---
Author Organization Healthcare Address [address] [place] [address] Care Team Providers Care Tile Power Shear Operator Name Role Phone Roman Medina MD Primary Care Provider [phone] Lazarus North MD Unavailable [phone] Encounter Details Date Type Department Care Team (Late st Contact Info) Description 11/18/2024 Orders Only External Location [address] [place] [address] Provider, External Social History Tobacco Use Types [...] place to sleep or slept in a assisted (including now)? No 07/15/2023 Housing Stability Vital Sign Answer Efe e Recorded In the last 12 months, was t here a time when you were not able to pay the mortgage or rent on time? No 10/23/2024 In the past 12 months, how m any times have you moved where you were living? 0 10/23/2024 At any time in the past [address] [facility], were you homeless or living in a assisted (including now)? 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-BRICK HANDLER) to steady your nerves or to get [...] on file documented as of this encounter Procedures Procedure [...] documented as of this encounter Care Teams Tile Power Shear Operator Relationship Specialty Start Date End Date Roman Medina MD PCP - General 06/24/22 Lazarus North MD [address] [place] [address] 06/24/22 documented as of this encounter
--- OUTSIDE RECORDS SUMMARY | 2024-12-31 14:32 | XMS_ITS | Encounter Summary ---
Author Organization Healthcare Address [address] [place] [address] Care Team Providers Care Home Health Clinician Name Role Phone Roman Medina MD Primary Care Provider [phone] Lazarus North MD Unavailable [phone] Encounter Details Date Type Department Care Team (Late st Contact Info) Description 11/18/2024 Orders Only External Location [address] [place] [address] Provider, External Social History Tobacco Use Types [...] to sleep or slept in a senior care (including now)? No 07/15/2023 Housing Stability Vital [...] you homeless or living in a senior care (including now)? 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-STEEL LAYER) to steady your nerves or to get [...] documented as of this encounter Care Teams Home Health Clinician Relationship Specialty Start Date End Date Roman Medina MD PCP - General 06/24/22 Lazarus North MD [address] [place] [address] 06/24/22 documented as of this encounter
[2024-12-31 14:45] VITALS: BP 133/72; PULSE 66; RESP 14; O2SAT 97; BMI 24.7
--- NOTE | 2024-12-31 14:54 | EXP.PAIN.SOA ---
[facility] Disclaimer: The information contained in this section may have been updated after the patient was seen, as this information can be updated by other users. Medical History Pleural effusion, right Encounter for post surgical wound check Nausea and vomiting History of DVT (deep vein thrombosis) Left leg pain Hypocalcemia Hypomagnesemia Hypokalemia Fall Fracture of first metatarsal bone of left foot Fracture of left foot Blood pressure instability Pericardial effusion Urethritis YAJAIRA (acute kidney injury) Gastroenteritis Seasonal allergies Pulmonary embolism Chest pain Pleural effusion Hypotension UTI (urinary tract infection), bacterial Ileus, unspecified Urinary tract infection Acute urinary retention Hyperkalemia YAJAIRA (acute kidney injury) Acute abdomen Sepsis Altered mental status Almazan catheter problem Urine incontinence Cellulitis Diastolic dysfunction Encounter for pre-operative cardiovascular clearance Renal insufficiency Shoulder pain History of pulmonary embolism COPD mixed type Thrombosis Hemorrhoids Cataract Hypokalemia Claudication Pleural effusion, left Stopped smoking with greater than 30 pack year history Dyspnea on exertion Edema HHD (hypertensive heart disease) Elevated left ventricular end-diastolic pressure (LVEDP) CAD (coronary artery disease) Numbness Coronary artery calcification seen on CT scan COPD (chronic obstructive pulmonary disease) Tobacco abuse PRAKASH on CPAP SOB (shortness of breath) HTN (hypertension) Vitamin D deficiency (~11/21/17) Hyperlipidemia (~11/21/17) Surgical History History of carpal tunnel release History of cholecystectomy H/O: hysterectomy History of intestinal surgery Family History Other No significant family history Social History Smoking Status: Never smoker years smoked: 45 smoking status stop date: 2017 second hand exposure: Yes alcohol intake: never substance use type: marijuana current occupational status: other Travel in the last 8 weeks?: None household members: spouse housing: house current occupational exposures/hazards: No caffeine: No PM Subjective & Objective Subjective Subjective:: Patient is a pleasant 69-year-old female who presents today for follow-up of her bilateral SI injections on 12/08/2024. Today she rates her pain a 4 out of 10 in this location. She states she has had at least 80% improvement following this injection and feels like it is still helping. 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 She rates that pain probably an 8 out of 10. Patient denies any recent falls or injuries. Patient is currently having continued issues with fluid on her lungs. She does mention that her lung doctor did talk about having to have another procedure to pull the fluid off and also test the liquid. Patient is currently however on her blood thinners that she cannot stop due to a recent blood clot in her abdomen from her last surgery.Patient is prescribed ropinirole 0.5 mg at bedtime and tizanidine 4 mg 3 times daily. She denies any side effects. Patient is prescribed gabapentin and Percocet from her PCP. Her Joshua has been reviewed and is appropriate. Review of Systems: General: No recent weight changes, no fever, no sleep disturbances Respiratory: No cough, no shortness of air, no recurring pulmonary infections Cardiovascular/peripheral vascular: No chest pain, no palpitations, no edema, no shortness of breath Gastrointestinal: No new onset incontinence, normal bowel movements reported Genitourinary: No new onset incontinence Musculoskeletal: Mid back pain Psychiatric: [Normal mood/affect] Neurological: [Denies weakness in extremities], [denies balance issues] Pain at rest (0-10 scale): 8 Objective Objective:: Physical Exam: General: Alert and oriented x3, no acute distress, pleasant and cooperative Lungs: Respirations even and unlabored, symmetrical chest expansion Eyes: PERRL Musculoskeletal: Flexion and extension of thoracic [spine] somewhat guarded secondary to pain, [antalgic gait noted] Neurological: Speech clear, no gross sensory deficit Has patient had previous pain injection?: Yes Percent improvement in pain since last injection: 80% Conservative treatment options previously tried: Home exercise plan Length of treatment: Longer than 12 weeks Meds Home Medications and Allergies Home Medications ?Medication ?Instructions ?Recorded ?Confirmed ?Type multivitamin 1 tab PO DAILY 09/23/23 12/31/24 History methenamine hippurate 1 gram tablet 1 g PO BID 11/27/23 12/31/24 History potassium chloride 20 mEq 20 meq PO DAILY 08/20/24 12/31/24 History tablet,extended release(part/cryst) glycopyrrolate 9 mcg-formoterol 2 puff inhalation BID 90 days 10/12/24 12/31/24 Rx 4.8 mcg HFA aerosol inhaler #10.7 grams (Bevespi Aerosphere) levothyroxine 50 mcg tablet 50 mcg PO DAILY #90 tabs 10/21/24 12/31/24 Rx pantoprazole 40 mg tablet,delayed 40 mg PO BID #180 tabs 10/21/24 12/31/24 Rx release albuterol sulfate 90 mcg/actuation 2 puff inhalation QIDP PRN 11/19/24 12/31/24 History aerosol inhaler Shortness Of Breath Or Wheezing alendronate 70 mg tablet 70 mg PO WEEKLY 11/19/24 12/31/24 History tizanidine 4 mg tablet See Rx Instructions .Route 11/23/24 12/31/24 Rx .COMPLEX #90 tabs apixaban 5 mg tablet (Eliquis) 5 mg PO BID #60 tabs 12/11/24 12/31/24 Rx ondansetron HCl 8 mg tablet 8 mg PO Q8H #90 tabs 12/11/24 12/31/24 Rx oxycodone-acetaminophen 5 mg-325 1 tab PO Q8HP PRN Moderate Pain 12/11/24 12/31/24 Rx mg tablet (Percocet) (Scale Score 5-6) #90 tabs bupropion HCl 75 mg tablet 150 mg (2 x 75 mg) PO 0600,1200 12/17/24 12/31/24 Rx #120 tabs gabapentin 100 mg capsule 100 mg PO BID #60 caps 12/17/24 12/31/24 Rx ropinirole 0.5 mg tablet See Rx Instructions .Route 12/17/24 12/31/24 Rx .COMPLEX #30 tabs trazodone 100 mg tablet 100 - 200 mg (1 - 2 x 100 mg) PO 12/21/24 12/31/24 Rx HS #180 tabs ergocalciferol (vitamin D2) 1,250 1,250 mcg PO WEEKLY #5 caps 12/24/24 12/31/24 Rx mcg (50,000 unit) capsule rosuvastatin 20 mg tablet 20 mg PO HS #30 tabs 12/30/24 12/31/24 Rx New Prescriptions to Start Prescriptions: Allergies Allergy/AdvReac Type Severity Reaction Status Date / Time codeine Allergy Intermediate I-HIVES Verified 12/30/24 10:30 sulfamethoxazole (From Allergy Intermediate I-HIVES Verified 12/30/24 10:30 Septra) trimethoprim (From Septra) Allergy Intermediate I-HIVES Verified 12/30/24 10:30 ibuprofen (IBUPROFEN) Allergy Unknown VOMITING Verified 12/30/24 10:30 Assessment and Plan *Assessment and plan (1) Thoracic radiculopathy: Status: Acute Category: Medical Code(s): M54.14 - Radiculopathy, thoracic region (2) Degenerative disc disease, thoracic: Status: Acute Category: Medical Code(s): M51.34 - Other intervertebral disc degeneration, thoracic region Plan We did discuss the possibility of a thoracic epidural however we are both in agreement that with her recent blood clot most likely she would not be able to stop her blood thinners. I did counseling center manager her that I will still follow-up with her primary care to confirm this and that if it is different on his response we will call her back in order to possibly proceed forward with the thoracic epidural. Patient agrees with this plan of care. I did review both her tizanidine and ropinirole and she does have medication refills on these and does not require any additional prescriptions. She will return to clinic in 6 weeks for reevaluation of symptoms and plan of care. Patient has been instructed to contact the clinic with any concerns before the next appointment. Dr. Brown has reviewed this note and agrees with this plan of care. This note was dictated using voice recognition software and make contain errors or omissions. All injections are used with Lidocaine, Bupivacaine and dexamethasone. Occasionally urine drug screen is needed to verify patient's compliance with our office pain contract. This is ordered based off specific treatments related to chronic pain with the potential to abuse certain medications.
== END 2024-12-31 23:59 | disposition home or self-care (01) ==
PROVIDERS: PCP Family Medicine; Visit Provider Nurse Practitioner Family
DX: M51.14 Intervertebral disc disorders with radiculopathy, thoracic region (principal); Z79.899 Other long term (current) drug therapy
CPT/HCPCS: 99212; G0463

== ENCOUNTER 2025-01-13 12:00 | Outpatient (CLI) | payer MEDICARE, MEDICAID, SELFPAY ==
--- OUTSIDE RECORDS SUMMARY | 2024-12-03 09:30 | XMS_ITS | Encounter Summary ---
Author Organization Healthcare Address [address] [place] [address] Care Team Providers Care Public Works Manager Name Role Phone Roman Medina MD Primary Care Provider [phone] Lazarus North MD Unavailable [phone] Reason for Visit * Reason Comments Wound Check Encounter Details Date Type Department Care Team (Late st Contact Info) Description 12/03/2024 9:30 AM EDT Office Visit [facility] General Surgery [address], [address] [place] [address] Diogenes Al MD [address] [facility] [address] [place] [address] Open wound (Primary Dx); Encounter [...] place to sleep or slept in a usp (including now)? No 07/15/2023 Housing Stability Vital Sign Answer Efe e Recorded In the last 12 months, was t here a time when you were not able to pay the mortgage or rent on time? No 10/23/2024 In the past 12 months, how m any times have you moved where you were living? 0 10/23/2024 At any time in the past 12 m [facility], were you homeless or living in a usp (including now)? 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-ROCK PICKER) to steady your nerves or to get rid of a hangover? 0 12/07/2023 CAGE Questionnaire Score 0 024 Utilities Answer Date Recorded In the past 12 months has e [employer], gas, oil, or water company threatened to [...] as of this encounter Care Teams Public Works Manager Relationship Specialty Start Date End Date Roman Medina MD PCP - General 06/24/22 Lazarus North MD [address] [place] [address] 06/24/22 documented as of this encounter
--- OUTSIDE RECORDS SUMMARY | 2025-01-14 15:08 | XMS_ITS | Encounter Summary ---
Author Organization [facility] Address [address] [place] [address] Care Team Providers Care Structural Biologist Name Role Phone Roman Medina MD Primary Care Provider [phone] Lazarus North MD Unavailable [phone] Encounter Details Date Type Department Care Team [...] any time in the past 12 m [facility], were you homeless or living in a [facility] (including now)? 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-BROADCAST PRODUCER) to steady your nerves or to get [...] documented as of this encounter Care Teams Structural Biologist Relationship Specialty Start Date End Date Roman Medina MD PCP - General 06/24/22 Lazarus North MD [address] [place] [address] 06/24/22 documented as of this encounter
--- OUTSIDE RECORDS SUMMARY | 2025-01-14 15:08 | XMS_ITS | Encounter Summary ---
Author Organization Healthcare Address [address] [place] [address] Care Team Providers Care Roll Carrier Name Role Phone Roman Medina MD Primary Care Provider [phone] Lazarus North MD Unavailable [phone] Encounter Details Date Type Department Care Team (Late st Contact Info) Description 11/18/2024 Orders Only External Location [address] [place] [address] Provider, External Social History Tobacco Use Types [...] place to sleep or slept in a long-term (including now)? No 07/15/2023 Housing Stability Vital [...] time in the past 12 m [facility], were you homeless or living in a long-term (including now)? 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-APPRENTICE LINEMAN THIRD STEP) to steady your nerves or to get [...] documented as of this encounter Care Teams Roll Carrier Relationship Specialty Start Date End Date Roman Medina MD PCP - General 06/24/22 Lazarus North MD [address] [place] [address] 06/24/22 documented as of this encounter
--- OUTSIDE RECORDS SUMMARY | 2025-01-14 15:08 | XMS_ITS | Encounter Summary ---
Author Organization Healthcare Address [address] [place] [address] Care Team Providers Care Software Engineering Analyst Name Role Phone Roman Medina MD Primary Care Provider [phone] Lazarus North MD Unavailable [phone] Reason for Visit * Reason Comments Med Refill Encounter Details Date Type Department Care Team (Late st Contact Info) Description 11/27/2024 Refill [facility] [address] [place] [address] Vicky Alonzo E, TRUST OPERATIONS ASSISTANT [address] [place] [address] Recurrent UTI Social History Tobacco [...] place to sleep or slept in a penitentiary (including now)? No 07/15/2023 Housing Stability Vital [...] time in the past 12 m [facility], were you homeless or living in a penitentiary (including now)? 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-MANUFACTURING TECH) to steady your nerves or to get rid of a hangover? 0 12/07/2023 CAGE Questionnaire Score 0 024 Utilities Answer Date Recorded In the past 12 months has e electric, gas, oil, or water [employer] threatened to shut off services in your [...] documented as of this encounter Care Teams Software Engineering Analyst Relationship Specialty Start Date End Date Roman Medina MD PCP - General 06/24/22 Lazarus North MD [address] [place] [address] 06/24/22 documented as of this encounter
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
--- OUTSIDE RECORDS SUMMARY | 2025-01-14 15:09 | XMS_ITS | Clinical Summary ---
Author Organization [facility] Address [address] [place] [address] Care Team Providers Care Drawer In Jacquard Loom Name Role Phone Roman Medina MD Primary Care Provider [phone] Lazarus North MD Unavailable [phone] Allergies Active Allergy Reactions Criticality Noted Date [...] by mouth 2 times a day. Active oxyCODONE-acetamin ophen (Percocet) 5-325 MG tablet Take 1 tablet [...] chew, or split. Active ergocalciferol 1.25 MG (66666 UT) capsule Take 1 capsule by mouth [...] tablets by mouth every 6 hours. Under [place] law, monthly prescriptions (30 days) can be [...] 25 Active methenamine hippurate (Hiprex) 1 g tabletIndications: Recurrent UTI TAKE ONE TABLET BY MOUTH 2 TIMES A DAY 60 tablet 11/28/19 25 Active Eliquis 5 MG tablet Take 1 tablet by mouth 2 times a day. 11/21/19 25 Active Active Problems Problem Noted Date Diagnosed Date [...] 08/30 (Kieran) Initial post-op pain controlled on DANCE STUDIO MANAGER, d/c DANCE STUDIO MANAGER on 09/06 Diet advanced slowly, tolerated well [...] 12/31/2021 Overview (11/05/2021): TPN started 10/27, discontinued 5/8 ADAT Intra-abdominal fluid collection 10/26/2021 11/01/2021 Overview (10/26/2021): - IR drain placed 10/24 - No growth to date Encounter for assessment for small bowel obstruciton 10/17/2021 10/21/2021 Small bowel obstruction 10/13/2021 0810/2021 Overview (02/10/2022): - Patient with decreased ostomy [...] Description 12/03/2024 9:30 AM EDT Office Visit [facility] General Surgery [address], [address] [place] [address] Diogenes Al MD Open wound (Primary Dx); Encounter for wound care 12/03/2024 Travel 11/27/[address] [facility] Urology [address], [address] [place] [address] Vicky Alonzo APRN Recurrent UTI 11/18/2024 Orders Only External Location [address] [place] [address] Provider, External 11/18/2024 Orders Only External Location [address] [place] [id number] Provider, External 11/09/[address] [facility] General Surgery [address], [address] [place] [phone] Linda Parham RN 11/05/2024 10:15 AM EDT Office Visit [facility] General Surgery [address], [address] [place] [address] Farnaz Brito MD SBO (small bowel obstruction) (CMS/HCC) (Primary Dx); Ileostomy present (CMS/HCC) 11/05/2024 Travel 10/21/2024 1:37 PM EDT Anesthesia Event [facility] [address] [place] [address] Ирина Tejeda CRNA Sullivan, Daniel J, DO 10/21/2024 12:30 PM EDT - 10/21/2024 3:00 PM EDT Surgery [facility] [address] [place] [address] Farnaz Brito MD LAPAROTOMY, EXPLORATORY, WITH LYSIS OF ADHESIONS 10/21/[address] [facility]rology [address] [place] [phone] Vicky Alonzo DIETARY AID Recurrent UTI (Primary Dx) 10/20/2024 Travel 10/19/2024 Travel 10/18/2024 8:19 PM EDT - 10/26/2024 1:18 PM EDT Hospital Encounter [facility] [address] [place] [address] Margarito Sue MD Akpunonu, MD Reji Snyder Helen S, MD Wheelock, MD Benny Ruth, King Mcdonald MD SBO (small bowel obstruction) (CMS/HCC) (Primary Dx) Discharge Disposition: Home or Self Care 10/18/2024 Travel from Last 3 Months Immunizations Immunization Administration Dates Next Due Influenza, High-dose, Split Virus, Trivalent, Injectable, preservative free 05/29/2024 Influenza, injectable, quadr ivalent, preservative free 03/04/2023,05/02/2021,03/28/2020,2018,05/05/2018,03/28/2016 Influenza, seasonal, injecta ble, preservative free 05/05/2018,05/24/2017 [employer] COVID-19 Vac cine (Purple Cap) 12+ 03/27/2021,03/06/2021 [...] place to sleep or slept in a intermediate (including now)? No 07/15/2023 Housing Stability Vital Sign Answer Efe e Recorded In the last 12 months, was t here a time when you were not able to pay the mortgage or rent on time? No 10/23/2024 In the past 12 months, how m any times have you moved where you were living? 0 10/23/2024 At any time in the past 12 m [facility], were you homeless or living in a intermediate (including now)? 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-PATTERN FINISHER) to steady your nerves or to get rid of a hangover? 0 12/07/2023 CAGE Questionnaire Score 0 024 Utilities Answer Date Recorded In the past 12 months has th [place], gas, oil, or water ooma threatened to shut off services in your [...] 2002 Sigmoidoscopy 2002 [facility]-Breast Cancer Screening 10/23/2007 [id number] Vaccine ( season) 2024 06/27/2022, 09/07/2021, 03/27/2021, Additional history exists [facility]-DTaP,Tdap,and Td Vaccines (2 - Td or Tdap) 01/15/2025 01/15/2015 [facility]-Influenza Vaccine (#1) 02/22/202505/29, 03/04/2023, 05/02/2021, Additional history exists [facility]-Depression Screening 03/20/2025 03/20/2024, 1011/2020 [facility]- SDOH [...] ANESTHESIA PLACEHOLDER Routine 10/21/2024 1:49 PM EDT [place] AN ELECTIVE ENDOTRACHEAL AIRWAY Routine 10/21/2024 1:49 [...] - 4.5 mg/dL 10/26/2024 12:02 PM EDT [facility] Blood Venous blood specimen / Unknown Venipuncture / Unknown 10/26/2024 11:09 AM EDT 10/26/2024 11:18 AM EDT Yuki Shankar APRN LAB BLOOD ORDERABLES Final Re sult [facility] [address] [place] [address] * (ABNORMAL) Magnesium (10/26/2024 11:09 AM EDT) Only the most recent of4 resultswithin the time period is included. Magnesium, Plasma 1.7(L) 1.9 - 2.4 mg/dL 10/26/2024 12:02 PM EDT [facility] Blood Venous blood specimen / Unknown Venipuncture / Unknown 10/26/2024 11:09 AM EDT 10/26/2024 11:18 AM EDT Yuki Shankar APRN LAB BLOOD ORDERABLES Final Re sult [facility] [address] [place] [address] * (ABNORMAL) Basic metabolic panel (10/26/2024 11:09 AM EDT) Only the most recent of4 resultswithin the time period is included. Glucose, Plasma 113(H) 74 - 99 mg/dL 10/26/2024 12:02 PM EDT [facility] BUN, Plasma 9 8 - 23 mg/dL 10/26/2024 12:02 PM EDT [facility] Creatinine, Plasma 0.74 0.60 - 1.10 mg/dL 10/26/2024 12:02 PM EDT [facility] BUN/Creatinine Ratio 12 10/26/2024 12:02 PM EDT [facility] Sodium, Plasma 136 136 - 145 mmol/L 10/26/2024 12:02 PM EDT [facility] Potassium, Plasma 3.8 3.6 - 4.9 mmol/L 10/26/2024 12:02 PM EDT [facility] Chloride, Plasma 101 97 - 107 mmol/L 10/26/2024 12:02 PM EDT [facility] CO2, Plasma 25 22 - 29 mmol/L 10/26/2024 12:02 PM EDT [facility] Anion Gap 10 6 - 16 mmol/L 10/26/2024 12:02 PM EDT [facility] Total Calcium, Plasma 8.2(L) 8.9 - 10.2 mg/dL 10/26/2024 12:02 PM EDT [facility] eGFRcr 88.8 mL/min/1.7 3m*2 10/26/2024 12:02 PM EDT [facility] Comment:Reported eGFRcr in m L/min/1.73m2 is based the CKD-EPI 2020 equation that does not use a race coefficient. Blood Venous blood specimen / Unknown Venipuncture / Unknown 10/26/2024 11:09 AM EDT 10/26/2024 11:18 AM EDT us Yuki Shankar APRN LAB BLOOD ORDERABLES Final Re sult [facility] [address] [place] [address] * Lavender Top (10/25/2024 1:08 PM EDT) Extra Hold for add-ons 10/25/2024 4:02 PM EDT [facility] Comment:Auto resulted. Blood Venous blood specimen / Unknown 10/25/2024 1:08 PM EDT 10/25/2024 2:00 PM EDT us Farnaz Brito MD LAB BLOOD ORDERABLES Yvonne l Result [facility] [address] [place] [address] * Potassium (10/25/2024 1:08 PM EDT) Potassium, Plasma 4.0 3.6 - 4.9 mmol/L 10/25/2024 1:46 PM EDT [facility] Blood Venous blood specimen / Unknown Venipuncture / Unknown 10/25/2024 1:08 PM EDT 10/25/2024 1:19 PM EDT Farnaz Brito MD LAB BLOOD ORDERABLES Yvonne l Result [facility] [address] [place] [address] * PERIPHERAL IV (SMARTFORM LINK) (10/23/2024 10:25 AM EDT) Only the most recent of3 resultswithin the time period is included. Narrative Angely Linton RN - 10/23/2024 10:25 AM EDT Angely [...] LAB HEMATOLOGY METHOD 2024 12:24 AM EDT [facility] RBC Count 4.27 3.90 - 5.20 10*6/uL LAB HEMATOLOGY METHOD 2024 12:24 AM EDT [facility] HGB 11.7 11.2 - 15.7 g/dL LAB HEMATOLOGY METHOD 2024 12:24 AM EDT [facility] HCT 38.6 34.0 - 45.0 % LAB HEMATOLOGY METHOD 2024 12:24 AM EDT [facility] Platelet Count 207 155 - 369 10*3/uL LAB HEMATOLOGY METHOD 2024 12:24 AM EDT [facility] MCV 90 79 - 98 fL LAB HEMATOLOGY METHOD 2024 12:24 AM EDT [facility] MCH 27.4 26.0 - 32.0 pg LAB HEMATOLOGY METHOD 2024 12:24 AM EDT [facility] MCHC 30.3(L) 30.7 - 35.5 g/dL LAB HEMATOLOGY METHOD 2024 12:24 AM EDT [facility] RDW 15.8(H) 11.5 - 14.5 % LAB HEMATOLOGY METHOD 2024 12:24 AM EDT [facility] MPV 11.2 8.8 - 12.5 fL LAB HEMATOLOGY METHOD 2024 12:24 AM EDT [facility] nRBC 0.0 <=0.0 per 100 WBCs LAB HEMATOLOGY METHOD 2024 12:24 AM EDT [facility] Blood Venous blood specimen / Unknown Venipuncture / Unknown 2024 12:12 AM EDT 2024 12:17 AM EDT us eRbecca Cadena DIETARY AID LAB BLOOD ORDERABLES Yvonne l Result [facility] [address] [place] [address] * ANESTHESIA ULTRASOUND GUIDED (10/21/2024 2:17 PM EDT) Narrative Ирина Tejeda CRNA - 10/21/2024 2:17 PM EDT Ирина Tejeda CRNA 10/21/2024 2:18 PM Peripheral IV Inserted by: Tejeda, Ирина O, SETTLEMENT AGENT Placement Needle size: 18 G Location: forearm Local anesthetic: none Site prep: alcohol Technique: ultrasound guided Attempts: 1 us Jonatan Ashraf MD ANESTHESIA ORDERABLES Final R esult * [place] AN ELECTIVE ENDOTRACHEAL AIRWAY, PB ANESTHESIA PLACEHOLDER (10/21/2024 1:49 PM EDT) Narrative Ирина Tejeda CRNA - 10/21/2024 1:49 PM EDT Ирина Tejeda CRNA 10/21/2024 2:20 PM Airway Date/Time: 10/21/2024 1:49 PM Reason: elective Airway not difficult General Information and Staff Patient location during procedure: OR SETTLEMENT AGENT: Ирина Tejeda CRNA Performed: SETTLEMENT AGENT Patient Condition Indications for airway management: anesthesia [...] ORDERABLE S Final Result Performing Organization Address [facility] Co de Phone Number BLOOD BANK [address] * POCT glucose meter (10/21/2024 5:58 AM EDT) Only the most recent of5 resultswithin the time period is included. POCT Glucose 90 74 - 99 mg/dL [...] Comment 10/21/2024 6:00 AM EDT [facility] Pony Ride Attendant ID KovarikCheng 6:00 AM EDT [facility]ALTH[facility] LAB Device ID [id number] 10/21/2024 6:00 AM EDT [facility] Specimen Type POC Capillary 10/21/2024 6:00 AM EDT [facility] Blood Capillary blood specimen / Unknown 10/21/2024 5:58 AM EDT 10/21/2024 6:00 AM EDT Farnaz Brito MD LAB POINT OF CARE TEST DOCKED DEVICE UNSOLICITED RESULTS Final Result Performing Organization Address [facility] Co de Phone Number [facility] [address] [place] [address] * XR Gastrograffin Challenge (10/20/2024 8:53 AM [...] No. COMMUNICATION: Per this written report. An [employer] secured message was sent to the responding [...] No. COMMUNICATION: Per this written report. An [employer] secured message was sent to the responding [...] Dominguez Marroquin MD on 10/18/2024 11:40 PM June Marinelli DO IMG CT PROCEDURES Final Resul t * (ABNORMAL) Troponin T, High Sensitivity, 2 Hour, Plasma (10/18/2024 10:45 PM EDT) Troponin T, High Sensitivity, 2 Hour 24(H) <14 ng/L 10/18/2024 11:10 PM EDT [facility] Troponin Delta 1 <10 ng/L 10/18/2024 11:10 PM EDT [facility] Troponin Delta Interpretation Not Significant 10/18/2024 11:10 PM EDT [facility] Comment:Not Significant. No acute change in troponin observed between the baseline and 2 hour samples. Blood Venous blood specimen / Unknown Venipuncture / Unknown 10/18/2024 10:45 PM EDT 10/18/2024 10:46 PM EDT June Marinelli DO LAB BLOOD ORDERABLES Final Re sult [facility] [address] [place] [address] * EKG now - STAT (adult) (10/18/2024 8:34 PM EDT) EKG DIAGNOSIS CLASS Abnormal MUSE ECG Ventricular Rate 93 BPM MUSE ECG Atrial Rate 93 BPM MUSE ECG [place] Interval 150 ms MUSE ECG QRSD Interval 70 ms MUSE ECG QT Interval 352 ms MUSE ECG QTC Interval 437 ms MUSE ECG P [place] 82 degrees MUSE ECG R [place] 12 degrees MUSE ECG T Wave [place] 60 degrees MUSE ECG Diagnosis Normal sinus rhythm MUSE ECG Diagnosis Low voltage QRS MUSE ECG Diagnosis Cannot rule out Anterior infarct , age undetermined MUSE ECG Diagnosis Abnormal ECG MUSE ECG Diagnosis MUSE ECG Diagnosis Confirmed by Grzegorz Butcher ([id number]) on 10/19/2024 12:57:13 PM MUSE ECG 10/18/2024 8:34 PM EDT 10/19/2024 12:57 PM EDT us June Marinelli DO ECG ORDERABLES Final Result MUSE [...] MD on 10/18/2024 9:07 PM us June Lisy Marinelli DO IMG XR PROCEDURES Final Resul t * (ABNORMAL) Troponin now and 120 min (10/18/2024 8:17 PM EDT) Troponin T, High Sensitivity, 0 Hour 23(H) <14 ng/L 10/18/2024 8:51 PM EDT [facility] Blood Venous blood specimen / Unknown Venipuncture / Unknown 10/18/2024 8:17 PM EDT 10/18/2024 8:22 PM EDT [facility] LAB BLOOD ORDERABLES Final Re sult Performing Organization Address [facility]/ZIP Co de Phone Number [facility] [address] [place] [address] * Lactic acid, venous (10/18/2024 8:17 PM EDT) Lactate, Venous, Whole Blood 1.0 0.5 - 2.2 mmol/L LAB HEMATOLOGY METHOD 10/18/2024 8:29 PM EDT [facility] Blood Venous blood specimen / Unknown Venipuncture / Unknown 10/18/2024 8:17 PM EDT 10/18/2024 8:26 PM EDT [facility] LAB BLOOD ORDERABLES Final Re sult Performing Organization Address City/[facility]/ZIP Co de Phone Number [facility] [address] [place] [address] * Lipase (10/18/2024 8:17 PM EDT) Lipase, Plasma 20 19 - 63 U/L 10/18/2024 8:51 PM EDT [facility] Blood Venous blood specimen / Unknown Venipuncture / Unknown 10/18/2024 8:17 PM EDT 10/18/2024 8:22 PM EDT June Marinelli DO LAB BLOOD ORDERABLES Final Re sult [facility] [address] [place] [address] * (ABNORMAL) CMP (10/18/2024 8:17 PM EDT) Glucose, Plasma 112(H) 74 - 99 mg/dL 10/18/2024 8:51 PM EDT [facility] BUN, Plasma 9 8 - 23 mg/dL 10/18/2024 8:51 PM EDT [facility] Creatinine, Plasma 0.88 0.60 - 1.10 mg/dL 10/18/2024 8:51 PM EDT [facility] BUN/Creatinine Ratio 10 10/18/2024 8:51 PM EDT [facility] Sodium, Plasma 141 136 - 145 mmol/L 10/18/2024 8:51 PM EDT [facility] Potassium, Plasma 4.1 3.6 - 4.9 mmol/L 10/18/2024 8:51 PM EDT [facility] Chloride, Plasma 104 97 - 107 mmol/L 10/18/2024 8:51 PM EDT [facility] CO2, Plasma 21(L) 22 - 29 mmol/L 10/18/2024 8:51 PM EDT [facility] Anion Gap 16 6 - 16 mmol/L 10/18/2024 8:51 PM EDT [facility] Total Calcium, Plasma 9.3 8.9 - 10.2 mg/dL 10/18/2024 8:51 PM EDT [facility] Total Protein 7.4 6.3 - 7.9 g/dL 10/18/2024 8:51 PM EDT [facility] Albumin, Plasma 3.4(L) 3.5 - 5.2 g/dL 10/18/2024 8:51 PM EDT [facility] AST, Plasma 22 10 - 35 U/L 10/18/2024 8:51 PM EDT [facility] Comment:Hemolyzed, result ma y be falsely increased. ALT, Plasma 11 10 - 35 U/L 10/18/2024 8:51 PM EDT [facility] Alkaline Phosphatase, Plasma 82 46 - 142 U/L 10/18/2024 8:51 PM EDT [facility] Total Bilirubin, Plasma 0.3 0.2 - 1.1 mg/dL 10/18/2024 8:51 PM EDT [facility] eGFRcr 72.6 mL/min/1.7 3m*2 10/18/2024 8:51 PM EDT [facility] Comment:Reported eGFRcr in m L/min/1.73m2 is based the CKD-EPI 2020 equation that does not use a race coefficient. Blood Venous blood specimen / Unknown Venipuncture / Unknown 10/18/2024 8:17 PM EDT 10/18/2024 8:22 PM EDT us June Marinelli DO LAB BLOOD ORDERABLES Final Re sult [facility] [address] [place] [address] * Hepatitis C Antibody - ED (09/05/2024 9:02 PM EDT) Hepatitis C Antibody Negative Negative 09/05/2024 10:04 PM EDT [facility] Blood Venous blood specimen / Unknown Venipuncture / Unknown 09/05/2024 9:02 PM EDT 09/05/2024 9:14 PM EDT us King Paniagua MD LAB BLOOD ORDERABLES Final Result Performing Organization Address City/[facility]/ZIP Co de Phone Number [facility] [address] [place] [address] * COLONOSCOPY (05/08/2017) Anatomical Region Laterality Modality [...] Patient has decision-making capacity? Yes Care Teams Drawer In Jacquard Loom Relationship Specialty Start Date End Date Roman Medina MD PCP - General 06/24/22 Lazarus North MD [address] [place] [address] 06/24/22
== END 2025-01-13 23:59 | disposition home or self-care (01) ==
LOC: LAB.DROPOF 01-14 15:06
PROVIDERS: PCP Family Medicine; Visit Provider Family Medicine
DX: R30.0 Dysuria (principal)
CPT/HCPCS: 87086; 87088; 87186

== ENCOUNTER 2025-01-29 09:49 | Outpatient (CLI) | payer MEDICARE, MEDICAID, SELFPAY ==
--- OUTSIDE RECORDS SUMMARY | 2024-12-03 09:30 | XMS_ITS | Encounter Summary ---
Author Organization Healthcare Address [address] [place] [address] Care Team Providers Care Assembler Arranger Name Role Phone Roman Medina MD Primary Care Provider [phone] Lazarus North MD Unavailable [phone] Reason for Visit * Reason Comments Wound Check Encounter Details Date Type Department Care Team (Late st Contact Info) Description 12/03/2024 9:30 AM EDT Office Visit [facility] General Surgery [address] [place] [address] Diogenes Al MD [address] [facility] [address] [place] [address] Open wound (Primary Dx); Encounter [...] place to sleep or slept in a snf (including now)? No 07/15/2023 Housing Stability Vital [...] time in the past 12 m [facility], were you homeless or living in a snf (including now)? No 10/23/2024 CAGE ASSESSMENT Answer [...] first t cash in the morning (EYE-SENIOR JAVA PROGRAMMER) to steady your nerves or to get rid of a hangover? 0 12/07/2023 CAGE Questionnaire Score 0 024 Utilities Answer Date Recorded In the past 12 months has e [employer], gas, oil, or water company threatened to [...] MD - 12/03/2024 9:30 AM EDT Dear oRman Medina MD, Davina Vidal is a 69 [...] documented as of this encounter Care Teams Assembler Arranger Relationship Specialty Start Date End Date Roman Medina MD PCP - General 06/24/22 Lazarus North MD [address] [place] [address] 06/24/22 documented as of this encounter
--- OUTSIDE RECORDS SUMMARY | 2025-02-01 10:01 | XMS_ITS | Clinical Summary ---
Author Organization [facility] Address [address] [place] [address] Care Team Providers Care Nuclear Medicine Pet Ct Technologist Name Role Phone Roman Medina MD Primary Care Provider [phone] Lazarus North MD Unavailable [phone] Allergies Active Allergy Reactions Criticality Noted Date [...] chew, or split. Active ergocalciferol 1.25 MG (71834 UT) capsule Take 1 capsule by mouth [...] tablets by mouth every 6 hours. Under [place] law, monthly prescriptions (30 days) can be [...] 08/30 (Kieran) Initial post-op pain controlled on BRAKE REPAIRER AIR, d/c BRAKE REPAIRER AIR on 09/06 Diet advanced slowly, tolerated well [...] Description 12/03/2024 9:30 AM EDT Office Visit [facility] General Surgery [address], [address] [place] [phone] Diogenes Al MD Open wound (Primary Dx); Encounter for wound care 12/03/2024 Travel 11/27/2024 Refill [facility] Urology [address], [address] [place] [address] Vicky Alonzo, ELEVATED WORK PLATFORM OPERATOR Recurrent UTI 11/18/2024 Orders Only External Location [address] [place] [address] Provider, External 11/18/2024 Orders Only External Location [address] [place] [address] Provider, External 11/09/2024 Telephone [facility] General Surgery [address], [address] [place] [phone] Linda Parham RN 11/05/2024 10:15 AM EDT Office Visit [facility] General Surgery [address], [address] [place] [address] Farnaz Brito MD SBO (small bowel obstruction) ([facility]) (Primary Dx); Ileostomy present ([facility]) 11/05/2024 Travel from Last 3 Months Immunizations Immunization Administration Dates Next Due Influenza, High-dose, Split Virus, Trivalent, Injectable, preservative free 05/29/2024 Influenza, injectable, quadr ivalent, preservative free 03/04/2023,05/02/2021,03/28/2020,2018,05/05/2018,03/28/2016 Influenza, seasonal, injecta ble, preservative free 05/05/2018,05/24/2017 [employer] COVID-19 Vac cine (Purple Cap) 12+ 03/27/2021,03/06/2021 [...] place to sleep or slept in a custodial (including now)? No 07/15/2023 Housing Stability Vital [...] were you homeless or living in a custodial (including now)? 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-HELICOPTER TECHNICIAN) to steady your nerves or to get [...] Last Done Comments [facility]-Bone Density Scan 1957 [facility]-Medicare Annual Wellness (AWV) 1957 [facility]-Infant/Child/Adol SDOH Screenings 1957 [facility]-Zoster Vaccines (1 of 2) 1976 CT Colonography 2002 FIT-DNA 2002 FIT 2002 FOBT 2002 Sigmoidoscopy 2002 [facility]-Breast Cancer Screening 10/23/2007 [id number] Vaccine ( season) 2024 06/27/2022, 09/07/2021, 03/27/2021, Additional history exists [facility]-DTaP,Tdap,and Td Vaccines (2 - Td or Tdap) 01/15/2025 01/15/2015 [facility]-Influenza Vaccine (#1) 02/22/202505/29, 03/04/2023, 05/02/2021, Additional history exists [facility]-Depression Screening 03/20/2025 03/20/2024, 10/0 11/2020 [facility]- SDOH Screenings 04/25/2025 [facility]-Adult SDOH [...] THORACIC OUTSIDE IMAGES 11/18/2024 9:12 PM EDT HEPATITIS C ANTIBODY - ED [...] Provider IMG CT PROCEDURES Final Result * Hepatitis C Antibody - ED (09/05/2024 9:02 PM EDT) Hepatitis C Antibody Negative Negative 09/05/2024 10:[address] [facility] Blood Venous blood specimen / Unknown Venipuncture / Unknown 09/05/2024 9:02 PM EDT 09/05/2024 9:14 PM EDT us King Paniagua MD LAB BLOOD ORDERABLES Final Result [facility] [address] [place] [address] * COLONOSCOPY (05/08/2017) Anatomical Region Laterality Modality Endoscopy Narrative 05/08/2017 Ordered by an unspecified provider. us Historical Provider GI PROCEDURE ORDERABLES F inal Result from Last 3 Months or Most Recently Relevant to Health Maintenance Insurance [place] MEDIC[place] Advance Directives * Full Code (Latest [...] Patient has decision-making capacity? Yes Care Teams Nuclear Medicine Pet Ct Technologist Relationship Specialty Start Date End Date Roman Medina MD PCP - General 06/24/22 Lazarus North MD [address] [place] [address] 06/24/22
--- OUTSIDE RECORDS SUMMARY | 2025-02-01 10:01 | XMS_ITS | Encounter Summary ---
Author Organization [facility] Address [address] [place] [address] Care Team Providers Care Health Occupations Instructor Name Role Phone Roman Medina MD Primary Care Provider [phone] Lazarus North MD Unavailable [phone] Encounter Details Date Type Department Care Team [...] drink first t cash in the morning (EYE-DEALER DEVELOPMENT MANAGER) to steady your nerves or to [...] documented as of this encounter Care Teams Health Occupations Instructor Relationship Specialty Start Date End Date Roman Medina MD PCP - General 06/24/22 Lazarus North MD [address] [place] [address] 06/24/22 documented as of this encounter
== END 2025-01-29 23:59 | disposition home or self-care (01) ==
LOC: LAB.DROPOF 02-01 09:50
PROVIDERS: PCP Family Medicine; Visit Provider Family Medicine
DX: R30.0 Dysuria (principal)
CPT/HCPCS: 87086

== ENCOUNTER 2025-02-11 14:44 | Outpatient (CLI) | payer MEDICARE, MEDICAID, SELFPAY ==
--- OUTSIDE RECORDS SUMMARY | 2025-02-11 14:50 | XMS_ITS | Clinical Summary ---
Author Organization [facility] Address [address] [place] [address] Care Team Providers Care President And Cmo Name Role Phone Roman Medina MD Primary Care Provider [phone] Lazarus North MD Unavailable Allergies Active Allergy Reactions Criticality Noted Date [...] chew, or split. Active ergocalciferol 1.25 MG (24482 UT) capsule Take 1 capsule by mouth [...] tablets by mouth every 6 hours. Under [place] law, monthly prescriptions (30 days) can be [...] 08/30 (Kieran) Initial post-op pain controlled on SOLAR ENERGY ADVISOR, d/c SOLAR ENERGY ADVISOR on 09/06 Diet advanced slowly, tolerated well [...] Description 12/03/2024 9:30 AM EDT Office Visit [facility] General Surgery [address], [address] [place] [address] Diogenes Al MD Open wound (Primary Dx); Encounter for wound care 12/03/2024 Travel 11/27/2024 Refill [facility] [address], [address] [place] [address] Vicky Alonzo, MACHINE PECAN GATHERER Recurrent UTI 11/18/2024 Orders Only External Location [address] [place] [id number] Provider, External 11/18/2024 Orders Only External Location [address] [place] [address] Provider, External from Last 3 Months Immunizations Immunization Administration Dates Next Due Influenza, High-dose, Split Virus, Trivalent, Injectable, preservative free 05/29/2024 Influenza, injectable, quadr ivalent, preservative free 03/04/2023,05/02/2021,03/28/2020,2018,05/05/2018,03/28/2016 Influenza, seasonal, injecta ble, preservative free 05/05/2018,05/24/2017 [employer] COVID-19 Vac cine (Purple Cap) 12+ 03/27/2021,03/06/2021 [...] time in the past 12 m [facility], were you homeless or living [...] drink first t cash in the morning (EYE-AERIAL CROP DUSTER) to steady your nerves or to get [...] 2002 Sigmoidoscopy 2002 [facility]-Breast Cancer Screening 10/23/2007 [id number] Vaccine ( season) 2024 06/27/2022, 09/07/2021, 03/27/2021, [...] Antibody Negative Negative 09/05/2024 10:04 PM EDT [facility] Blood Venous blood specimen / Unknown Venipuncture / Unknown 09/05/2024 9:02 PM EDT 09/05/2024 9:14 PM EDT King Paniagua MD LAB BLOOD ORDERABLES Final Result [facility] [address] [place] [address] * COLONOSCOPY (05/08/2017) Anatomical Region Laterality Modality Endoscopy Narrative 05/08/2017 Ordered by an unspecified provider. us Historical Provider GI PROCEDURE ORDERABLES Yvonne l Result from Last 3 Months or Most [...] Patient has decision-making capacity? Yes Care Teams President And Cmo Relationship Specialty Start Date End Date Roman Medina MD PCP - General 06/24/22 Lazarus North MD [address] [place] [address] 06/24/22
--- NOTE | 2025-02-11 15:00 | MM_ITS ---
PROCEDURE INFORMATION: Exam: MG Bilateral Screening 3D Mammography Exam date and time: 02/11/2025 2:59 PM Age: 69 years old Clinical indication: Screening examination. TECHNIQUE: Imaging protocol: Bilateral Screening tomosynthesis and 2D mammography including computer-aided detection (CAD) when performed. COMPARISON: 1. MG MM DIG SCREENING MAMM BI W/CAD 12/25/2023 10:50 AM 2. MG MM DIG SCREENING MAMM BI W/CAD 12/20/2022 10:25 AM FINDINGS: MAMMOGRAPHY: Breast composition: The breasts are almost entirely fatty. Mass: None. Architectural distortion: None. Calcifications: No suspicious calcifications. Asymmetric density: None. Skin thickening: None. Axillary adenopathy: None. IMPRESSION: No mammographic evidence of malignancy. Annual screening is recommended unless otherwise clinically indicated. ASSESSMENT: BI-RADS Category 1: Negative.
== END 2025-02-11 23:59 | disposition home or self-care (01) ==
LOC: RAD 14:44
PROVIDERS: PCP Family Medicine; Visit Provider Family Medicine
DX: Z12.31 Encounter for screening mammogram for malignant neoplasm of breast (principal)
CPT/HCPCS: 77063; 77067

== ENCOUNTER 2025-02-15 11:06 | Outpatient (POV) | payer MEDICARE, MEDICAID, SELFPAY ==
[2025-02-15 11:19] VITALS: BP 161/102; BP 192/95; PULSE 74; RESP 14; O2SAT 96; BMI 25.7
--- NOTE | 2025-02-15 11:32 | EXP.PAIN.SOA ---
[facility] Disclaimer: The information contained in this section may have been updated after the patient was seen, as this information can be updated by other users. Medical History Pleural effusion, right Encounter for post surgical wound check Nausea and vomiting History of DVT (deep vein thrombosis) Left leg pain Hypocalcemia Hypomagnesemia Hypokalemia Fall Fracture of first metatarsal bone of left foot Fracture of left foot Blood pressure instability Pericardial effusion Urethritis YAJAIRA (acute kidney injury) Gastroenteritis Seasonal allergies Pulmonary embolism Chest pain Pleural effusion Hypotension UTI (urinary tract infection), bacterial Ileus, unspecified Urinary tract infection Acute urinary retention Hyperkalemia YAJAIRA (acute kidney injury) Acute abdomen Sepsis Altered mental status Almazan catheter problem Urine incontinence Cellulitis Diastolic dysfunction Encounter for pre-operative cardiovascular clearance Renal insufficiency Shoulder pain History of pulmonary embolism COPD mixed type Thrombosis Hemorrhoids Cataract Hypokalemia Claudication Pleural effusion, left Stopped smoking with greater than 30 pack year history Dyspnea on exertion Edema HHD (hypertensive heart disease) Elevated left ventricular end-diastolic pressure (LVEDP) CAD (coronary artery disease) Numbness Coronary artery calcification seen on CT scan COPD (chronic obstructive pulmonary disease) Tobacco abuse PRAKASH on CPAP SOB (shortness of breath) HTN (hypertension) Vitamin D deficiency (~11/21/17) Hyperlipidemia (~11/21/17) Surgical History History of carpal tunnel release History of cholecystectomy H/O: hysterectomy History of intestinal surgery Family History Other No significant family history Social History Smoking Status: Never smoker years smoked: 45 smoking status stop date: 2017 second hand exposure: Yes alcohol intake: never substance use type: marijuana current occupational status: other Travel in the last 8 weeks?: None household members: spouse housing: house current occupational exposures/hazards: No caffeine: No PM Subjective & Objective Subjective Subjective:: Patient is a pleasant 69-year-old female who presents today for worsening pain. She rates her pain an 8 out of 10. She does state that she is still having more around her mid back but also with her left shoulder and upper left forearm. Patient did recently have a blood clot in October and is still on blood thinners that she cannot stop currently. Patient does state that she knows that she cannot do certain injections but was really hoping that if we could see about doing something for the shoulder. Patient states that it is very bothersome and interfering with her ability perform activities of daily living such as cooking and cleaning. Patient states that she has not been getting more than 3 hours of sleep due to the pain waking her up. She states that she cannot raise her arm up completely due to worsening symptoms. Patient does state that this is a chronic issue that she has had for years and has even had injections in the past but it has been years and that those typically did really well. Patient would like to see about doing something in the near future for this pain. Patient is prescribed ropinirole 0.5 mg at bedtime and tizanidine 4 mg 3 times a day. She denies any side effects. Her Joshua has been reviewed and is appropriate. Review of Systems: General: No recent weight changes, no fever, no sleep disturbances Respiratory: No cough, no shortness of air, no recurring pulmonary infections Cardiovascular/peripheral vascular: No chest pain, no palpitations, no edema, no shortness of breath Gastrointestinal: No new onset incontinence, normal bowel movements reported Genitourinary: No new onset incontinence Musculoskeletal: Left shoulder pain, mid back pain Psychiatric: [Normal mood/affect] Neurological: [Denies weakness in extremities], [denies balance issues] Pain at rest (0-10 scale): 8 Objective Objective:: Physical Exam: General: Alert and oriented x3, no acute distress, pleasant and cooperative Lungs: Respirations even and unlabored, symmetrical chest expansion Eyes: PERRL Musculoskeletal: Flexion and extension of left shoulder somewhat guarded secondary to pain, [antalgic gait noted] Neurological: Speech clear, no gross sensory deficit Has patient had previous pain injection?: No Conservative treatment options previously tried: Home exercise plan Length of treatment: Longer than 12 weeks Meds Home Medications and Allergies Home Medications ?Medication ?Instructions ?Recorded ?Confirmed ?Type multivitamin 1 tab PO DAILY 09/23/23 02/15/25 History potassium chloride 20 mEq 20 meq PO DAILY 08/20/24 02/15/25 History tablet,extended release(part/cryst) glycopyrrolate 9 mcg-formoterol 2 puff inhalation BID 90 days 10/12/24 02/15/25 Rx 4.8 mcg HFA aerosol inhaler #10.7 grams (Bevespi Aerosphere) levothyroxine 50 mcg tablet 50 mcg PO DAILY #90 tabs 10/21/24 02/15/25 Rx pantoprazole 40 mg tablet,delayed 40 mg PO BID #180 tabs 10/21/24 02/15/25 Rx release albuterol sulfate 90 mcg/actuation 2 puff inhalation QIDP PRN 11/19/24 02/15/25 History aerosol inhaler Shortness Of Breath Or Wheezing apixaban 5 mg tablet (Eliquis) 5 mg PO BID #60 tabs 12/11/24 02/15/25 Rx ondansetron HCl 8 mg tablet 8 mg PO Q8H #90 tabs 12/11/24 02/15/25 Rx bupropion HCl 75 mg tablet 150 mg (2 x 75 mg) PO 0600,1200 12/17/24 02/15/25 Rx #120 tabs ropinirole 0.5 mg tablet See Rx Instructions .Route 12/17/24 02/15/25 Rx .COMPLEX #30 tabs ergocalciferol (vitamin D2) 1,250 1,250 mcg PO WEEKLY #5 caps 12/24/24 02/15/25 Rx mcg (50,000 unit) capsule rosuvastatin 20 mg tablet 20 mg PO HS #30 tabs 12/30/24 02/15/25 Rx gabapentin 100 mg capsule 100 mg PO TID #90 caps 01/13/25 02/15/25 Rx methenamine hippurate 1 gram tablet 1 g PO BID #60 tabs 01/13/25 02/15/25 Rx oxycodone-acetaminophen 5 mg-325 1 tab PO Q8HP PRN Moderate Pain 01/13/25 02/15/25 Rx mg tablet (Percocet) (Scale Score 5-6) #90 tabs alendronate 70 mg tablet 70 mg PO WEEKLY #14 tabs 02/10/25 02/15/25 Rx methylprednisolone 4 mg tablets in See Rx Instructions PO PER PKG DIR 02/10/25 02/15/25 Rx a dose pack #21 tabs ondansetron 4 mg disintegrating 4 mg PO Q8H #60 tabs 02/10/25 02/15/25 Rx tablet tizanidine 4 mg tablet See Rx Instructions .Route 02/10/25 02/15/25 Rx .COMPLEX #90 tabs trazodone 150 mg tablet 150 - 300 mg (1 - 2 x 150 mg) PO 02/10/25 02/15/25 Rx HS PRN sleep #180 tabs New Prescriptions to Start Prescriptions: Allergies Allergy/AdvReac Type Severity Reaction Status Date / Time codeine Allergy Intermediate I-HIVES Verified 02/10/25 13:27 sulfamethoxazole (From Allergy Intermediate I-HIVES Verified 02/10/25 13:27 Septra) trimethoprim (From ) Allergy Intermediate I-HIVES Verified 02/10/25 13:27 ibuprofen (IBUPROFEN) Allergy Unknown VOMITING Verified 02/10/25 13:27 Assessment and Plan *Assessment and plan (1) Chronic left shoulder pain: Status: Acute Category: Medical Code(s): M25.512 - Pain in left shoulder; G89.29 - Other chronic pain Plan Patient is experiencing worsening pain in her left shoulder with limited range of motion. I did discuss with the patient that I do believe she would benefit from an intra-articular shoulder injection. Risk and benefits were discussed with the patient and she would like to proceed forward with this plan of care. Patient has tried and failed conservative therapy including oral medication, heat and ice, topicals, at home stretching exercise for longer than 12 weeks. Patient has had chronic shoulder pain in the past and has gotten injections years ago. Patient did state today that those were very significant providing more than 50% relief and lasted for years. Patient will be scheduled for a left shoulder intra-articular injection without fluoroscopic or ultrasound guidance. Patient has been instructed to contact the clinic with any concerns before the next appointment. Dr. Brown has reviewed this note and agrees with this plan of care. This note was dictated using voice recognition software and make contain errors or omissions. All injections are used with Lidocaine, Bupivacaine and dexamethasone. Occasionally urine drug screen is needed to verify patient's compliance with our office pain contract. This is ordered based off specific treatments related to chronic pain with the potential to abuse certain medications.
--- OUTSIDE RECORDS SUMMARY | 2025-02-15 11:53 | XMS_ITS | Clinical Summary ---
Author Organization [facility] Address [address] [place] [address] Care Team Providers Care Business Services Officer Name Role Phone Roman Medina MD Primary Care Provider [phone] Lazarus North MD Unavailable Allergies Active Allergy [...] chew, or split. Active ergocalciferol 1.25 MG (75145 UT) capsule Take 1 capsule by mouth [...] 08/30 (Kieran) Initial post-op pain controlled on DIRECTOR OF INSTITUTIONAL SALES, d/c DIRECTOR OF INSTITUTIONAL SALES on 09/06 Diet advanced slowly, tolerated well [...] Description 12/03/2024 9:30 AM EDT Office Visit [facility] General Surgery [address], [address] [place] [address] Diogenes Al MD Open wound (Primary Dx); Encounter for wound care 12/03/2024 Travel 11/27/2024 Refill [facility] Urology [address], [address] [place] [address] Vicky Alonzo, GANG LEADER Recurrent UTI 11/18/2024 Orders Only External Location [address] [place] [address] Provider, External 11/18/2024 Orders Only External Location [address] [place] [address] Provider, External from Last 3 Months Immunizations Immunization Administration Dates Next Due Influenza, High-dose, Split Virus, Trivalent, Injectable, preservative free 05/29/2024 Influenza, injectable, quadr ivalent, preservative free 03/04/2023,05/02/2021,03/28/2020,2018,05/05/2018,03/28/2016 Influenza, seasonal, injecta ble, preservative free 05/05/2018,05/24/2017 [place] COVID-19 Vac cine (Purple Cap) 12+ 03/27/2021,03/06/2021 [...] No 07/15/2023 Housing Stability Vital Sign Answer Fee e Recorded In the last 12 months, was t here a time when you were not able to pay the mortgage or rent on time? No 10/23/2024 In the past 12 months, how m any times have you moved where you were living? 0 10/23/2024 At any time in the past 12 m [facility], were you homeless or living [...] drink first t cash in the morning (EYE-FILLER SHREDDER) to steady your nerves or to get [...] 2002 Sigmoidoscopy 2002 [facility]-Breast Cancer Screening 10/23/2007 [id number] Vaccine ( season) 2024 06/27/2022, 09/07/2021, 03/27/2021, [...] Negative Negative 09/05/2024 10:[address] [facility] Blood Venous blood specimen / Unknown Venipuncture / Unknown 09/05/2024 9:02 PM EDT 09/05/2024 9:14 PM EDT King Paniagua MD LAB BLOOD ORDERABLES Final Result [facility] [address] [place] [address] * COLONOSCOPY (05/08/2017) Anatomical Region Laterality Modality [...] Patient has decision-making capacity? Yes Care Teams Business Services Officer Relationship Specialty Start Date End Date Roman Medina MD PCP - General 06/24/22 Lazarus North MD [address] [place] [address] 06/24/22
== END 2025-02-15 23:59 | disposition home or self-care (01) ==
LOC: SC.PAIN 11:06
PROVIDERS: PCP Family Medicine; Visit Provider Nurse Practitioner Family
DX: M25.512 Pain in left shoulder (principal); G89.29 Other chronic pain; Z79.899 Other long term (current) drug therapy
CPT/HCPCS: 99212; G0463

== ENCOUNTER 2025-02-23 14:30 | Outpatient (CLI) | payer MEDICARE, MEDICAID, SELFPAY ==
--- OUTSIDE RECORDS SUMMARY | 2025-02-25 10:15 | XMS_ITS | Clinical Summary ---
Author Organization [facility] Address [address] [place] [address] Care Team Providers Care Critical Care Unit Nurse Name Role Phone Roman Medina MD Primary Care Provider [phone] Lazarus North MD Unavailable [phone] Allergies Active Allergy Reactions Criticality Noted Date [...] chew, or split. Active ergocalciferol 1.25 MG (34529 UT) capsule Take 1 capsule by mouth [...] tablets by mouth every 6 hours. Under [place] law, monthly prescriptions (30 days) can be [...] 08/30 (Kieran) Initial post-op pain controlled on ORAL PATHOLOGIST, d/c ORAL PATHOLOGIST on 09/06 Diet advanced slowly, tolerated well [...] 12/03/2024 9:30 AM EDT Office Visit [facility] General Surgery [address], [address] [place] [address] Diogenes Al MD Open wound (Primary Dx); Encounter for wound care 12/03/2024 Travel 11/27/[address] [facility] Urology [address], [address] [place] [address] Vicky Alonzo, FOOD SCIENCE TECHNICIAN Recurrent UTI from Last 3 Months Immunizations Immunization Administration Dates Next Due Influenza, High-dose, Split Virus, Trivalent, Injectable, preservative free 05/29/2024 Influenza, injectable, quadr ivalent, preservative free 03/04/2023,05/02/2021,03/28/2020,2018,05/05/2018,03/28/2016 Influenza, seasonal, injecta ble, preservative free 05/05/2018,05/24/2017 [employer] COVID-19 Vac cine (Purple Cap) 12+ 03/27/2021,03/06/2021 [...] any time in the past 12 m [facility], were you homeless or living in a [...] drink first t cash in the morning (EYE-CUTTER GRINDER OPERATOR) to steady your nerves or to get rid of a hangover? 0 12/07/2023 CAGE Questionnaire Score 0 024 Utilities Answer Date Recorded In the past 12 months has th [employer], gas, oil, or water [employer] threatened to shut off services in your [...] 2002 Sigmoidoscopy 2002 [facility]-Breast Cancer Screening 10/23/2007 [id number] Vaccine ( season) 2024 06/27/2022, 09/07/2021, 03/27/2021, [...] Procedure Name Priority Date/Time Associated Diagnosis Comments HEPATITIS C ANTIBODY - ED W/REFLEX TO HCV QUANT PCR STAT 09/05/2024 9:02 PM EDT COLONOSCOPY 05/08/2017 from Last 3 Months or Most Recently Relevant to Health Maintenance Results * Hepatitis C Antibody - ED (09/05/2024 9:02 PM EDT) Hepatitis C Antibody Negative Negative 09/05/2024 10:04 PM EDT [facility] Blood Venous blood specimen / Unknown Venipuncture / Unknown 09/05/2024 9:02 PM EDT 09/05/2024 9:14 PM EDT King Paniagua MD LAB BLOOD ORDERABLES Final Result Performing Organization Address City/State/[facility] Co de Phone Number [facility] [address] [place] [address] * COLONOSCOPY (05/08/2017) Anatomical Region Laterality Modality Endoscopy Narrative 05/08/2017 Ordered by an unspecified provider. us Historical Provider GI PROCEDURE ORDERABLES Yvonne l Result from Last 3 Months or Most Recently Relevant to Health Maintenance Insurance [place] [id number] [employer] MEDICARE Advance Directives * Full Code [...] Patient has decision-making capacity? Yes Care Teams Critical Care Unit Nurse Relationship Specialty Start Date End Date Roman Medina MD PCP - General 06/24/22 Lazarus North MD [address] [place] [phone] 06/24/22
== END 2025-02-23 23:59 | disposition home or self-care (01) ==
LOC: LAB.DROPOF 02-25 10:11
PROVIDERS: PCP Nurse Practitioner; Visit Provider Nurse Practitioner
DX: R31.9 Hematuria, unspecified (principal); R35.0 Frequency of micturition
CPT/HCPCS: 87086

== ENCOUNTER 2025-03-24 12:00 | Outpatient (CLI) | payer MEDICARE, MEDICAID, SELFPAY ==
--- OUTSIDE RECORDS SUMMARY | 2025-03-25 11:52 | XMS_ITS | Clinical Summary ---
Author Organization [facility] Address [address] [place] [address] Care Team Providers Care Dewaxer Name Role Phone Roman Medina MD Primary Care Provider [phone] Lazarus North MD Unavailable [phone] Allergies Active Allergy Reactions Criticality Noted Date [...] chew, or split. Active ergocalciferol 1.25 MG (98735 UT) capsule Take 1 capsule by mouth [...] tablets by mouth every 6 hours. Under [place] law, monthly prescriptions (30 days) can be [...] Hyperlipidemia 10/13/2021 Overview (09/08/2024): Resume home statin Emphysema/COPD 11/17/2014 02/17/2023 Overview (09/29/2024): Pulm hygiene, [...] 09/08/2024 Edema 04/10/2023 04/10/2023 09/29/2024 Hematoma 04/10/2023 04/10/202309/29/2024 Hyperkalemia 04/10/2023 04/10/2023 09/08/2024 Numbness 04/10/2023 04/10/2023 [...] 08/30 (Kieran) Initial post-op pain controlled on LEAK OPERATOR PARAFFIN PLANT, d/c LEAK OPERATOR PARAFFIN PLANT on 09/06 Diet advanced slowly, tolerated well TPN started, now stopped Small bowel obstruction 06/25/2022 01/0 08/2022 Overview (06/26/2022): Vomiting and pain Pain continues to improve No nausea Stoma output continues Heart failure 06/25/2022 06/26/2022 Overview (06/25/2022): Home meds Incarcerated hernia 02/09/2022 02/11/20 Abdominal pain 12/31/2021 01/02/2022 Overview (12/31/2021): Possible [...] 09/08/2024 Wound of back 07/26/2017 04/10/2023 09/08/2024 Astigmatism of both eyes with presbyopia 04/12/2015 04/10/2023 03/14/2025 Combined form of age-related cataract, both eyes 04/12/2015 04/10/2023 03/14/2025 Cataract 08/20/2014 04/10/2023 09/29/2024 Obstructive chronic bronchitis 06/09/2014 04/10/2023 09/29/2024 Compression fracture 04/08/2014 04/10/2023 025 BRBPR (bright red blood per rectum) 03/22/201404/1009/08/2024 Overview (04/10/2023): Anal hemorrhage Immunizations Immunization Administration Dates Next Due Influenza, High-dose, Split Virus, Trivalent, Injectable, preservative free 05/29/2024 Influenza, injectable, quadr ivalent, preservative free 03/04/2023,05/02/2021,03/28/2020,2018,05/05/2018,03/28/2016 Influenza, seasonal, injecta ble, preservative free 05/05/2018,05/24/2017 [employer] COVID-19 Vac cine (Purple Cap) 12+ 03/27/2021,03/06/2021 [...] any time in the past 12 m [facility], were you homeless or living [...] drink first t cash in the morning (EYE-COTTON WASHER) to steady your nerves or to get rid of a hangover? 0 12/07/2023 CAGE Questionnaire Score 0 024 Utilities Answer Date Recorded In the past 12 months has e [employer], gas, oil, or water [employer] threatened to shut off services in your [...] 2002 Sigmoidoscopy 2002 [facility]-Breast Cancer Screening 10/23/2007 [facility]-DTaP,Tdap,and Td Vaccines (2 - Td or Tdap) 01/15/2025 01/15/2015 [id number] Vaccine (5 - season) 2025 06/27/2022, 09/07/2021, 03/27/2021, Additional history exists [facility]-Influenza Vaccine (#1) 02/22/202505/29, 03/04/2023, 05/02/2021, Additional [...] Antibody Negative Negative 09/05/2024 10:04 PM EDT [facility] Blood Venous blood specimen / Unknown Venipuncture / Unknown 09/05/2024 9:02 PM EDT 09/05/2024 9:14 PM EDT us King Paniagua MD LAB BLOOD ORDERABLES Final Result [facility] [address] [place] [address] * COLONOSCOPY (05/08/2017) Anatomical Region Laterality Modality [...] Patient has decision-making capacity? Yes Care Teams Dewaxer Relationship Specialty Start Date End Date Roman Medina MD PCP - General 06/24/22 Lazarus North MD [address] [place] [address] 06/24/22
== END 2025-03-24 23:59 | disposition home or self-care (01) ==
LOC: LAB.DROPOF 03-25 11:51
PROVIDERS: PCP Family Medicine; Visit Provider Family Medicine
DX: R30.0 Dysuria (principal)
CPT/HCPCS: 87086

== ENCOUNTER 2025-04-06 10:02 | Day surgery (SDC) | payer MEDICARE, MEDICAID, SELFPAY ==
[2025-04-06 10:21] VITALS: BP 129/67; PULSE 75; RESP 16; O2SAT 96; BMI 25.1
[2025-04-06] MEDS: LIDOCAINE 1% 5ML PF VIAL 5 ML (10:42)
[2025-04-06] MEDS: DEXAMETHASONE 10MG/ML 1ML VIAL 10 MG (10:42)
[2025-04-06] MEDS: BUPIVACAINE 0.25% 10ML INJ 25 MG IJ (10:42)
[2025-04-06 10:44] VITALS: BP 107/59; PULSE 72; RESP 16; O2SAT 96
[2025-04-06 10:45] VITALS: BP 129/67; PULSE 75; RESP 18; O2SAT 96
[2025-04-06 10:46] VITALS: BP 129/67; PULSE 75; RESP 18; O2SAT 96
--- NOTE | 2025-04-06 10:47 | EXP.PAIN.PRO ---
Procedure Date: 04/06/25 Time: 10:45 Anesthesiologist:: Dominguez Griggs CRNA Complications:: None Pre-procedure Diagnosis:: DJD left shoulder. Chronic left shoulder pain. Post-procedure Diagnosis:: Same. Indications for Procedure:: Patient is a very pleasant 69-year-old female who comes our clinic today for a left intra-articular shoulder injection of cortisone local anesthetic. Patient describes left shoulder pain as constant, dull, aching. Patient has 5/5 strength in the left arm. However, limited range of motion secondary to left shoulder pain. She rates her pain 8/10. Procedure Details:: Procedure Details: Left shoulder intra-articular injection Informed consent was obtained risk and benefits of the procedure were explained to the patient. Patient was taken to the procedure room. The Left shoulder was prepped using ChloraPrep. A 25-gauge needle was used posteriorly to inject 10 mL bupivacaine 0.25% and 10 mg of dexamethasone. Patient tolerated procedure well with no complications. Plan and Disposition:: Patient was discharged without incident.
== END 2025-04-06 10:44 | disposition home or self-care (01) ==
PROVIDERS: PCP Family Medicine; Visit Provider Nurse Anesthetist, Certified Registered
DX: M19.012 Primary osteoarthritis, left shoulder (principal); G89.29 Other chronic pain; I25.10 Atherosclerotic heart disease of native coronary artery without angina pectoris; J44.9 Chronic obstructive pulmonary disease, unspecified; I11.9 Hypertensive heart disease without heart failure; E78.5 Hyperlipidemia, unspecified; I73.9 Peripheral vascular disease, unspecified; G47.33 Obstructive sleep apnea (adult) (pediatric); Z86.711 Personal history of pulmonary embolism; Z86.718 Personal history of other venous thrombosis and embolism; Z99.89 Dependence on other enabling machines and devices; Z87.891 Personal history of nicotine dependence; Z88.1 Allergy status to other antibiotic agents; Z88.2 Allergy status to sulfonamides; Z88.5 Allergy status to narcotic agent; Z88.6 Allergy status to analgesic agent; Z79.01 Long term (current) use of anticoagulants; Z79.891 Long term (current) use of opiate analgesic; Z79.899 Other long term (current) drug therapy
CPT/HCPCS: 20610; J0665; J1100; J2003

== ENCOUNTER 2025-04-23 09:45 | Outpatient (CLI) | payer MEDICARE, MEDICAID, SELFPAY ==
[2025-04-23 14:23] LABS: Microscopic, Urine URINE MICROSCOPIC (MICROSCOPIC)
[2025-04-23 14:50] LABS: Bilirubin,Urine Negative (Negative); Color,Urine YELLOW (Yellow); Glucose,Urine (UA) Negative (Negative); Ketones,Urine Negative (Negative); Leukocyte Esterase,Urine 1+ (Negative); PH,Urine 6.0 (5.0-8.5); Protein,Urine 2+ (Negative); Specific Gravity, Urine 1.020 (1.005-1.030); Urobilinogen,Urine 0.2 EU/dl (0.2)
[2025-04-23 15:35] LABS: WBC,Urine TNTC #/hpf (0-3)
--- OUTSIDE RECORDS SUMMARY | 2025-04-26 09:54 | XMS_ITS | Clinical Summary ---
Author Organization [facility] Address [address] [place] [address] Care Team Providers Care Tonal Regulator Name Role Phone Roman Medina MD Primary Care Provider [phone] Lazarus North MD Unavailable [phone] Allergies Active Allergy Reactions Criticality Noted Date [...] chew, or split. Active ergocalciferol 1.25 MG (56534 UT) capsule Take 1 capsule by mouth [...] tablets by mouth every 6 hours. Under [place] law, monthly prescriptions (30 days) can be [...] 08/30 (Kieran) Initial post-op pain controlled on CONSULTING SYSTEMS ENGINEER, d/c CONSULTING SYSTEMS ENGINEER on 09/06 Diet advanced slowly, tolerated well [...] Influenza, seasonal, injecta ble, preservative free 05/05/2018,05/24/2017 [employer] COVID-19 Vac cine (Purple Cap) 12+ 03/27/2021,03/06/2021 [...] place to sleep or slept in a longterm (including now)? No 07/15/2023 Housing Stability Vital Sign Answer Efe e Recorded In the last 12 months, was t here a time when you were not able to pay the mortgage or rent on time? No 10/23/2024 In the past 12 months, how m any times have you moved where you were living? 0 10/23/2024 At any time in the past 12 m [facility], were you homeless or living in a longterm (including now)? 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-GENERAL PURCHASING AGENT) to steady your nerves or to get rid of a hangover? 0 12/07/2023 CAGE Questionnaire Score 0 024 Utilities Answer Date Recorded In the past 12 months has e [employer], gas, oil, or water [employer] threatened to shut off services in your [...] (2 - Td or Tdap) 01/15/2025 01/15/2015 [id number] Vaccine (5 - season) 2025 06/27/2022, 09/07/2021, [...] Antibody Negative Negative 09/05/2024 10:04 PM EDT [facility] Blood Venous blood specimen / Unknown Venipuncture / Unknown 09/05/2024 9:02 PM EDT 09/05/2024 9:14 PM EDT us King Paniagua MD LAB BLOOD ORDERABLES Final Result [facility] [address] [place] [address] * COLONOSCOPY (05/08/2017) Anatomical Region Laterality Modality [...] Patient has decision-making capacity? Yes Care Teams Tonal Regulator Relationship Specialty Start Date End Date Roman Medina MD PCP - General 06/24/22 Lazarus North MD [address] [place] [address] 06/24/22
== END 2025-04-23 23:59 ==
LOC: LAB.DROPOF 04-26 09:45
PROVIDERS: PCP Family Medicine; Visit Provider Family Medicine
DX: R30.0 Dysuria (principal)
CPT/HCPCS: 81001; 87086

== ENCOUNTER 2025-05-28 14:53 | Outpatient (CLI) | payer MEDICARE, MEDICAID, SELFPAY ==
[2025-05-28 19:47] LABS: Alanine Aminotransferase 16 U/L (12-78); Albumin Level 3.4 g/dl (3.5-5.0); Albumin/Globulin Ratio 1.0 (1.1-1.8); Alkaline Phosphatase 104 U/L (38-126); Anion Gap 12.5 mEq/L (5-15); Aspartate Amino Transferase 31 U/L (14-36); Bilirubin,Total 0.3 mg/dl (0.2-1.3); Blood Urea Nitrogen 11 mg/dl (7-17); Calcium 5.8 mg/dl (8.4-10.2); Carbon Dioxide 20 mmol/L (22.0-30.0); Chloride 106 mmol/L (98-107); Creatinine,Serum 1.00 mg/dl (0.52-1.04); Estimated Glomerular Filt Rate 55 ml/min (>60); GFR (African American) 67 ML/MIN (>60); Globulin 3.4 g/dL (1.3-3.2); Glucose 73 mg/dl (74-100); Potassium 4.5 mmoL/L (3.5-5.1); Sodium 134 mmol/L (136-145); Total Protein,Serum 6.8 g/dl (6.3-8.2)
--- OUTSIDE RECORDS SUMMARY | 2025-05-30 14:56 | XMS_ITS | Clinical Summary ---
Author Organization [facility] Address [address] [place] [address] Care Team Providers Care Serologist Name Role Phone Roman Medina MD Primary Care Provider [phone] Lazarus North MD Unavailable [phone] Allergies Active Allergy Reactions Criticality Noted Date [...] chew, or split. Active ergocalciferol 1.25 MG (22035 UT) capsule Take 1 capsule by mouth [...] 08/30 (Kieran) Initial post-op pain controlled on BOTTLE DEALER, d/c BOTTLE DEALER on 09/06 Diet advanced slowly, tolerated well [...] Influenza, seasonal, injecta ble, preservative free 05/05/2018,05/24/2017 [employer] COVID-19 Vac cine (Purple Cap) 12+ 03/27/2021,03/06/2021 [...] Years Used Date Smoking Tobacco: Former Cigarettes 0 Q uit: 2018 Smokeless Tobacco: Never Tobacco [...] time in the past [address] [facility], were you homeless or living [...] drink first t cash in the morning (EYE-TRUCKLOAD CHECKER) to steady your nerves or to get rid of a hangover? 0 12/07/2023 CAGE Questionnaire Score 0 024 Utilities Answer Date Recorded In the past 12 months has e [employer], gas, oil, or water [employer] threatened to shut off services in your [...] (2 - Td or Tdap) 01/15/2025 01/15/2015 [id number] Vaccine (5 - season) 2025 06/27/2022, 09/07/2021, [...] Antibody Negative Negative 09/05/2024 10:04 PM EDT [facility] Blood Venous blood specimen / Unknown Venipuncture / Unknown 09/05/2024 9:02 PM EDT 09/05/2024 9:14 PM EDT us King Paniagua MD LAB BLOOD ORDERABLES Final Result [facility] [address] [place] [address] * COLONOSCOPY (05/08/2017) Anatomical Region Laterality Modality [...] Patient has decision-making capacity? Yes Care Teams Serologist Relationship Specialty Start Date End Date Roman Medina MD PCP - General 06/24/22 Lazarus North MD [address] [place] [address] 06/24/22
== END 2025-05-28 23:59 | disposition home or self-care (01) ==
LOC: LAB.DROPOF 05-30 14:54
PROVIDERS: PCP Family Medicine; Visit Provider Family Medicine
DX: E83.42 Hypomagnesemia (principal); I10 Essential (primary) hypertension
CPT/HCPCS: 80053

== ENCOUNTER 2025-06-14 12:46 | Outpatient (CLI) | payer MEDICARE, MEDICAID, SELFPAY ==
--- OUTSIDE RECORDS SUMMARY | 2025-06-14 12:49 | XMS_ITS | Clinical Summary ---
Author Organization [facility] Address [address] [place] [address] Care Team Providers Care Video Game Script Writer Name Role Phone Roman Medina MD Primary Care Provider [phone] Lazarus North MD Unavailable [phone] Allergies Active Allergy Reactions Criticality Noted Date [...] chew, or split. Active ergocalciferol 1.25 MG (15014 UT) capsule Take 1 capsule by mouth [...] tablets by mouth every 6 hours. 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 0 12/07/2023 CAGE Questionnaire Score 0 024 Utilities Answer Date Recorded In the past 12 months has e [employer], gas, oil, or water [employer] threatened to shut off services in your [...] (2 - Td or Tdap) 01/15/2025 01/15/2015 [id number] Vaccine (5 - season) 2025 06/27/2022, 09/07/2021, [...] 07/09/2023, 10/13/2021, Additional history exists HPV Vaccines (No Doses Required) Completed UKY-HIB Vaccines Aged Out No longer e [...] Antibody Negative Negative 09/05/2024 10:04 PM EDT [facility] Blood Venous blood specimen / Unknown Venipuncture / Unknown 09/05/2024 9:02 PM EDT 09/05/2024 9:14 PM EDT us King Paniagua MD LAB BLOOD ORDERABLES Final Result [facility] [address] [place] [address] * COLONOSCOPY (05/08/2017) Anatomical Region Laterality Modality [...] Patient has decision-making capacity? Yes Care Teams Video Game Script Writer Relationship Specialty Start Date End Date Roman Medina MD PCP - General 06/24/22 Lazarus North MD [address] [place] [address] 06/24/22
--- NOTE | 2025-06-14 13:00 | CT_ITS ---
FINAL REPORT TECHNIQUE: Axial CT without IV contrast administration. Coronal and sagittal reconstructions obtained and reviewed. This study was performed with techniques to keep radiation doses as low as reasonably achievable, (ALARA). Individualized dose reduction techniques using automated exposure control or adjustment of mA and/or kV according to the patient's size were employed. This study was performed with techniques to keep radiation doses as low as reasonably achievable, (ALARA). Individualized dose reduction techniques using automated exposure control or adjustment of mA and/or kV according to the patient''s size were employed. CLINICAL HISTORY: Nodule, f/u scan for nodule, patient stated she has COPD COMPARISON: 03/27/2024 FINDINGS: No acute lung disease is present. The previously described right middle lobe nodule is no longer evident. The previously described right lower lobe nodule is also no longer evident. These findings are compatible with inflammatory nodules. Mild scarring is noted in the lung apices. There are emphysematous changes. Mild left lower lobe scarring is noted. No pleural or pericardial effusion is seen. No adenopathy or mass lesion is present. Right posterior diaphragmatic hernia is present containing intra-abdominal fat and similar in appearance to the prior study. IMPRESSION: Resolution of right lung nodules without acute finding. Recommend resumption of LDCT screening. Reviewed, Interpreted and Dictated by Niall Carey MD Transcribed by Heather Lemons Authenticated and [facility]
== END 2025-06-14 23:59 | disposition home or self-care (01) ==
LOC: RAD 12:47
PROVIDERS: PCP Family Medicine; Visit Provider Internal Medicine Pulmonary Disease
DX: J44.9 Chronic obstructive pulmonary disease, unspecified (principal); R91.1 Solitary pulmonary nodule
CPT/HCPCS: 71250

== ENCOUNTER 2025-06-15 14:09 | Day surgery (SDC) | payer MEDICARE, MEDICAID, SELFPAY ==
[2025-06-15 14:13] VITALS: BP 132/79; PULSE 65; RESP 16; O2SAT 95; BMI 26.5
[2025-06-15] MEDS: DEXAMETHASONE 10MG/ML 1ML VIAL 10 MG (14:29)
[2025-06-15] MEDS: LIDOCAINE 1% 5ML PF VIAL 5 ML (14:29)
[2025-06-15 14:35] VITALS: BP 111/70; PULSE 65; RESP 18; O2SAT 98
[2025-06-15 14:36] VITALS: BP 128/79; PULSE 80; RESP 18; O2SAT 97
[2025-06-15 14:37] VITALS: BP 128/79; PULSE 80; RESP 18; O2SAT 97
--- NOTE | 2025-06-15 14:38 | P.PCN_ITS ---
Procedure Date: 06/15/25 Time: 14:30 Anesthesiologist:: Dominguez Griggs CRNA Complications:: None Pre-procedure Diagnosis:: Bilateral sacroiliitis Post-procedure Diagnosis:: Same Indications for Procedure:: Patient is a very pleasant 69-year-old female who comes to clinic today for bila teral sacroiliac joint injection cortisone local anesthetic. Patient describes low lumbar back pain of midline bilaterally. Bilateral posterior hip pain. Difficulty transitioning from sitting to standing. Difficulty with ambulation due to bilateral posterior hip pain and low back pain. She rates her pain 7/10. Procedure Details:: Procedure: Bilateral sacroiliac joint injections under fluoroscopy Informed consent was obtained and the risks and benefits of the procedure were explained to the patient.~ The patient was taken to the procedure room and noninvasive monitors were placed including a noninvasive blood pressure cuff and pulse oximeter.~ The patient was placed prone on the procedure table. Both hips were cleansed using Betadine as a cleansing solution. C-arm fluoroscopy was used to view the right sacroiliac joint.~ The skin and subcutaneous tissues were anesthetized using lidocaine 1.5% and a 25-gauge needle.~ After this, a 22-gauge spinal needle was inserted under fluoroscopic guidance into the inferior aspect of the right sacroiliac joint.~ Omnipaque dye was injected and good spread was seen throughout the joint.~ After this, approximately 5 mL of bupivacaine, 0.25% and dexamethasone 5 mg was incrementally injected into the right sacroiliac joint. We then moved to the left sacroiliac joint.~ The skin and subcutaneous tissues were anesthetized using lidocaine 1.5% and a 25-gauge needle.~ After this, a 22- gauge spinal needle was inserted under fluoroscopic guidance into the inferior aspect of the left sacroiliac joint.~ Omnipaque dye was injected and good spread was seen throughout the joint. After this, approximately 5 mL of bupivacaine, 0.25% and dexamethasone 5 mg was incrementally injected into the left sacroiliac joint.~ The patient tolerated the procedure well with no complications. The patient was observed in the Pain Clinic and then was discharged home neurologically intact. Plan and Disposition:: Patient was discharged without incident.
== END 2025-06-15 14:38 | disposition home or self-care (01) ==
PROVIDERS: PCP Family Medicine; Visit Provider Nurse Anesthetist, Certified Registered
DX: M46.1 Sacroiliitis, not elsewhere classified (principal); Z86.718 Personal history of other venous thrombosis and embolism; Z86.711 Personal history of pulmonary embolism; I25.10 Atherosclerotic heart disease of native coronary artery without angina pectoris; I10 Essential (primary) hypertension; E78.5 Hyperlipidemia, unspecified; J44.9 Chronic obstructive pulmonary disease, unspecified; Z79.01 Long term (current) use of anticoagulants; Z79.02 Long term (current) use of antithrombotics/antiplatelets; Z79.899 Other long term (current) drug therapy
CPT/HCPCS: G0260; J1100; J2003